=== PATIENT | male | born 1940 | race Caucasian/White ===

== ENCOUNTER 2016-11-14 17:36 | Inpatient (IN) | payer MEDICARE, BC ==
--- NOTE | 2016-11-14 18:16 | ED ---
General Adult HPI - General Chief complaint: Chest Pain Stated complaint: chest pain Time Seen by Provider: 11/14/16 17:49 Source: patient Mode of arrival: wheelchair Limitations: no limitations - History of Present Illness Initial comments: 76-year-old male presents with chest discomfort with tightness beginning during the night last night is been continuous has a lot of burping no radiation to the arm no shortness of breath no nausea. He's had a history of coronary artery disease with 2 stents in the past and underlying atrial fibrillation. He has no diabetes asthma seizures stroke. - Related Data Home Medications Medication Instructions Recorded Confirmed Lisinopril [Prinivil] 10 mg PO DAILY 07/15/14 11/14/16 Fenofibrate [Lofibra] 160 mg PO HS 03/29/15 11/14/16 Meclizine [Antivert] 25 mg PO TID PRN 03/30/15 11/14/16 Multivit-Min/FA/Lycopene/Lut 1 tab PO DAILY 12/04/15 11/14/16 [Centrum Silver Tablet] Rosuvastatin Calcium [Crestor] 20 mg PO DAILY 12/04/15 11/14/16 Previous Rx's Medication Instructions Recorded Apixaban [Eliquis] 2.5 mg PO BID #60 tab 04/02/15 Allergies Allergy/AdvReac Type Severity Reaction Status Date / Time cortisone [Cortisone] Allergy Swelling Verified 11/14/16 17:58 and itching Review of Systems ROS Statement: Those systems with pertinent positive or pertinent negative responses have been documented in the HPI. ROS Other: All systems not noted in ROS Statement are negative. Constitutional: Denies: fever Eyes: Denies: eye pain ENT: Denies: ear pain Respiratory: Denies: cough Cardiovascular: Denies: chest pain Gastrointestinal: Denies: abdominal pain, nausea, vomiting Skin: Denies: rash Neurological: Denies: headache, weakness, numbness Hematological/Lymphatic: Denies: swollen glands Past Medical History Past Medical History: Atrial Fibrillation, Coronary Artery Disease (CAD), GI Bleed, Hyperlipidemia, Hypertension, Sleep Apnea/CPAP/BIPAP Additional Past Medical History / Comment(s): Sinus Congestion; Vertigo; Uses CPAP. History of Any Multi-Drug Resistant Organisms: None Reported Past Surgical History: Heart Catheterization With Stent, Orthopedic Surgery Additional Past Surgical History / Comment(s): Exploratory Abdominal Surgery; ORIF titanium/screws in LT Ankle. REPAIR BICEP TENDON LT ARM. EXC RT CATARACT. STENTS X2. COLONOSCOPY/EGD 04/01/15. Past Anesthesia/Blood Transfusion Reactions: Previous Problems w/ Anesthesia Additional Past Anesthesia/Blood Transfusion Reaction / Comment(s): DEVELOPED AFIB AFTER CATARACT SURG 2014 EST. Date of Last Stent Placement:: 1999 Past Psychological History: No Psychological Hx Reported Smoking Status: Former smoker Past Alcohol Use History: None Reported Additional Past Alcohol Use History / Comment(s): SMOKED 15 YRS, 1 PPD, QUIT 1979 Past Drug Use History: None Reported - Past Family History Mother Family Medical History: Diabetes Mellitus, Myocardial Infarction ([place]) Father Family Medical History: Myocardial Infarction ([place]) General Exam Limitations: no limitations General appearance: alert, in no apparent distress Head exam: Present: atraumatic Eye exam: Present: PERRL, EOMI ENT exam: Present: normal exam, normal oropharynx, mucous membranes moist, TM's normal bilaterally Respiratory exam: Present: normal lung sounds bilaterally Cardiovascular Exam: Present: irregular rhythm, normal heart sounds GI/Abdominal exam: Present: soft, normal bowel sounds. Absent: tenderness, guarding, rebound Neurological exam: Present: alert, CN II-XII intact Psychiatric exam: Present: normal affect, normal mood Skin exam: Present: warm, dry Course Vital Signs 11/14/16 11/14/16 11/14/16 17:38 18:21 18:26 Temperature 99.1 F Pulse Rate 88 67 74 Respiratory 20 18 20 Rate Blood Pressure 187/80 124/58 113/57 O2 Sat by Pulse 96 97 98 Oximetry 11/14/16 18:31 Temperature Pulse Rate 76 Respiratory 20 Rate Blood Pressure 104/51 O2 Sat by Pulse 98 Oximetry Medical Decision Making - Medical Decision Making Is no acute [place] on the EKG patient did resolve except for the belching with nitro because of this will admit. Patient has had a history coronary disease we spoke with Dr. Viveros - Lab Data Result diagrams: 11/14/16 17:45 11/14/16 17:45 Lab Results 11/14/16 11/14/16 11/14/16 Range/Units 17:45 17:45 17:45 WBC 9.3 (3.8-10.6) k/uL RBC 5.16 (4.30-5.90) m/uL Hgb 15.6 (13.0-17.5) gm/dL Hct 46.5 (39.0-53.0) % MCV 90.2 (80.0-100.0) fL MCH 30.2 (25.0-35.0) pg MCHC 33.5 (31.0-37.0) g/dL RDW 15.8 H (11.5-15.5) % Plt Count 210 (150-450) k/uL Neutrophils % 84 % Lymphocytes % 6 % Monocytes % 5 % Eosinophils % 1 % Basophils % 1 % Neutrophils # 7.9 H (1.3-7.7) k/uL Lymphocytes # 0.5 L (1.0-4.8) k/uL Monocytes # 0.5 (0-1.0) k/uL Eosinophils # 0.1 (0-0.7) k/uL Basophils # 0.1 (0-0.2) k/uL Poikilocytosis Slight PT (9.0-12.0) sec INR (<1.1) APTT (22.0-30.0) sec Sodium 139 (137-145) mmol/L Potassium 4.6 (3.5-5.1) mmol/L Chloride 102 (98-107) mmol/L Carbon Dioxide 25 (22-30) mmol/L Anion Gap 12 mmol/L BUN 20 (9-20) mg/dL Creatinine 1.46 H (0.66-1.25) mg/dL Est GFR (MDRD) Af Amer 57 (>60 ml/min/1.73 sqM) Est GFR (MDRD) Non-Af 47 (>60 ml/min/1.73 sqM) Glucose 145 H (74-99) mg/dL Calcium 9.7 (8.4-10.2) mg/dL Magnesium 1.8 (1.6-2.3) mg/dL Total Bilirubin 0.9 (0.2-1.3) mg/dL AST 26 (17-59) U/L ALT 20 L (21-72) U/L Alkaline Phosphatase 40 (38-126) U/L Total Creatine Kinase 70 (55-170) U/L CK-MB (CK-2) 1.7 (0.0-2.4) ng/mL CK-MB (CK-2) Rel Index 2.4 Troponin I <0.012 (0.000-0.034) ng/mL Total Protein 7.3 (6.3-8.2) g/dL Albumin 4.4 (3.5-5.0) g/dL 11/14/16 Range/Units 17:45 WBC (3.8-10.6) k/uL RBC (4.30-5.90) m/uL Hgb (13.0-17.5) gm/dL Hct (39.0-53.0) % MCV (80.0-100.0) fL MCH (25.0-35.0) pg MCHC (31.0-37.0) g/dL RDW (11.5-15.5) % Plt Count (150-450) k/uL Neutrophils % % Lymphocytes % % Monocytes % % Eosinophils % % Basophils % % Neutrophils # (1.3-7.7) k/uL Lymphocytes # (1.0-4.8) k/uL Monocytes # (0-1.0) k/uL Eosinophils # (0-0.7) k/uL Basophils # (0-0.2) k/uL Poikilocytosis PT 11.7 (9.0-12.0) sec INR 1.2 (<1.1) APTT 26.9 (22.0-30.0) sec Sodium (137-145) mmol/L Potassium (3.5-5.1) mmol/L Chloride (98-107) mmol/L Carbon Dioxide (22-30) mmol/L Anion Gap mmol/L BUN (9-20) mg/dL Creatinine (0.66-1.25) mg/dL Est GFR (MDRD) Af Amer (>60 ml/min/1.73 sqM) Est GFR (MDRD) Non-Af (>60 ml/min/1.73 sqM) Glucose (74-99) mg/dL Calcium (8.4-10.2) mg/dL Magnesium (1.6-2.3) mg/dL Total Bilirubin (0.2-1.3) mg/dL AST (17-59) U/L ALT (21-72) U/L Alkaline Phosphatase (38-126) U/L Total Creatine Kinase (55-170) U/L CK-MB (CK-2) (0.0-2.4) ng/mL CK-MB (CK-2) Rel Index Troponin I (0.000-0.034) ng/mL Total Protein (6.3-8.2) g/dL Albumin (3.5-5.0) g/dL - EKG Data -: EKG Interpreted by Me 11/14/16 18:13 ECG 11/14/2016 1744 ventricular rate 77 bpm, WI interval not present, QRS duration 88 ms, QT interval 388 ms atrial fibrillation left axis deviation T- wave abnormality consider him lateral ischemia Disposition Clinical Impression: Chest pain Disposition: ADMITTED IP TO THIS HOSP Condition: Good Time of Disposition: 19:58
[2016-11-14] MEDS: NITROGLYCERIN SL TABS 0.4 MG TAB SUBLINGUAL STA ×2 (18:22→18:27)
[2016-11-14 18:25] LABS: Basophils # (A) 0.1 k/uL (0-0.2); Basophils % (A) 1 %; CH 31.3; CHCM 34.9; Eosinophils # (A) 0.1 k/uL (0-0.7); Eosinophils % (A) 1 %; HCT 46.5 % (39.0-53.0); HDW 3.47; HGB 15.6 gm/dL (13.0-17.5); Luc # (Auto) 0.26; Luc % (Auto) 3; Lymphocytes # (A) 0.5 k/uL (1.0-4.8); Lymphocytes % (A) 6 %; MCH 30.2 pg (25.0-35.0); MCHC 33.5 g/dL (31.0-37.0); MCV 90.2 fL (80.0-100.0); Mean Platelet Volume 8.4; Monocytes # (A) 0.5 k/uL (0-1.0); Monocytes % (A) 5 %; Neutrophils # (A) 7.9 k/uL (1.3-7.7); Neutrophils % (A) 84 %; Poikilocytosis Slight; RBC 5.16 m/uL (4.30-5.90); RDW 15.8 % (11.5-15.5); WBC 9.3 k/uL (3.8-10.6); WBC (Perox) 9.37
[2016-11-14 18:33] LABS: INR 1.2 (<1.1); Partial Thromboplastin Time 26.9 sec (22.0-30.0); Prothrombin Time 11.7 sec (9.0-12.0)
[2016-11-14] MEDS ORDERED: MAG HYDROX/AL HYDROX/SIMETH 30 ML, HYOSCYAMINE ELIXIR 10 ML, CIMETIDINE HCL 300 MG PO STA ×3 (18:33)
[2016-11-14 18:38] LABS: Calcium 9.7 mg/dL (8.4-10.2); Magnesium 1.8 mg/dL (1.6-2.3); Potassium 4.6 mmol/L (3.5-5.1); Total Bilirubin 0.9 mg/dL (0.2-1.3); Total Protein 7.3 g/dL (6.3-8.2)
--- NOTE | 2016-11-14 18:50 | XR ---
EXAMINATION TYPE: XR chest 1V portable DATE OF EXAM: 11/14/2016 6:45 PM COMPARISON: Prior chest x-ray March 05, 2016 HISTORY: Chest pain. TECHNIQUE: Single AP portable frontal upright view of the chest is obtained. FINDINGS: There is no focal air space opacity, pleural effusion, or pneumothorax seen. The cardiac silhouette size remains enlarged. The osseous structures are intact. IMPRESSION: Cardiomegaly without acute pulmonary process.
[2016-11-14 19:01] LABS: Creatine Kinase 70 U/L (55-170)
[2016-11-14 19:13] LABS: Creatine Kinase MB 1.7 ng/mL (0.0-2.4); Troponin I <0.012 ng/mL (0.000-0.034)
[2016-11-14] MEDS ORDERED: NALOXONE 0.4 MG/ML 1 ML VIAL IV PRN (19:59)
[2016-11-14] MEDS ORDERED: MECLIZINE 25 MG TAB PO PRN (20:00)
[2016-11-14] MEDS ORDERED: SODIUM CHLORIDE 0.9% 1,000 ML IV SCH (20:00)
[2016-11-14] MEDS ORDERED: ACETAMINOPHEN TAB 325 MG TAB PO PRN (20:01)
[2016-11-14] MEDS ORDERED: FAMOTIDINE 20 MG TAB PO STA (20:03)
[2016-11-14] MEDS ORDERED: FENOFIBRATE 160 MG TAB PO SCH (21:00)
[2016-11-14] MEDS: APIXABAN 2.5 MG TABLET PO SCH (22:04)
[2016-11-15 00:45] LABS: Creatine Kinase 70 U/L (55-170)
[2016-11-15 00:59] LABS: Creatine Kinase MB 1.2 ng/mL (0.0-2.4); Troponin I <0.012 ng/mL (0.000-0.034)
[2016-11-15 07:11] LABS: Basophils % (A) 0 %; CH 30.8; CHCM 34.2; Eosinophils # (A) 0.1 k/uL (0-0.7); Eosinophils % (A) 2 %; HCT 43.8 % (39.0-53.0); HDW 3.51; HGB 14.3 gm/dL (13.0-17.5); Luc % (Auto) 4; Lymphocytes # (A) 0.9 k/uL (1.0-4.8); Lymphocytes % (A) 15 %; MCH 29.5 pg (25.0-35.0); MCHC 32.6 g/dL (31.0-37.0); MCV 90.4 fL (80.0-100.0); Mean Platelet Volume 7.7; Monocytes # (A) 0.3 k/uL (0-1.0); Monocytes % (A) 6 %; Neutrophils # (A) 4.2 k/uL (1.3-7.7); Neutrophils % (A) 73 %; Poikilocytosis Slight; RBC 4.84 m/uL (4.30-5.90); RDW 15.7 % (11.5-15.5); WBC 5.7 k/uL (3.8-10.6); WBC (Perox) 5.97
[2016-11-15 07:23] LABS: Calcium 9.5 mg/dL (8.4-10.2); Potassium 4.7 mmol/L (3.5-5.1)
[2016-11-15 07:33] LABS: Creatine Kinase 52 U/L (55-170)
[2016-11-15 07:46] LABS: Creatine Kinase MB 1.2 ng/mL (0.0-2.4); Troponin I <0.012 ng/mL (0.000-0.034)
[2016-11-15 08:31] VITALS: TEMP 97.7
[2016-11-15] MEDS ORDERED: LISINOPRIL 10 MG TAB PO SCH (09:00)
[2016-11-15] MEDS ORDERED: ATORVASTATIN 40 MG TAB PO SCH (09:00)
--- NOTE | 2016-11-15 09:58 | P.CRDCN ---
History of Present Illness Consult date: 11/15/16 Requesting physician: Kojo Viveros Consult reason: chest pain Chief complaint: Chest pain History of present illness: This is a pleasant 79-year-old gentleman with history of hypertension , hyperlipidemia, coronary artery disease with prior stent placement 2 several years ago, patient also has history of prior GI bleeding on xarelto, history of chronic persistent atrial fibrillation. Patient follows with Dr. Kuhn for his cardiac needs. He presents to the hospital with symptoms of midsternal chest pressure and heaviness with associated shortness of breath. According to the patient, he has been having episodes of frequent belching which he's been dealing with for approximately one year. He states that last evening he had several episodes of belching, and following that patient states that he developed a heaviness in the chest and became mildly short of breath. Because of his history of coronary artery disease he came to the hospital for further evaluation. Over the past one to 2 weeks patient has been dealing with a bronchitis and upper respiratory infection for which she was started on antibiotics. Continues to have nonproductive cough. EKG on arrival shows atrial fibrillation with anterior lateral ST-T wave changes, more pronounced on the morning EKG. Biphasic T-wave changes in V3. CBC normal, potassium 4.7, BUN 19, creatinine 1.4. Troponins have been negative 3. Magnesium level I.8. Blood pressure 130/70 with a heart rate in the 70s. At the time of my examination this morning, patient no longer has any chest pressure or heaviness , continues to have intermittent cough with deep breathing. Past Medical History Past Medical History: Atrial Fibrillation, Coronary Artery Disease (CAD), GI Bleed, Hyperlipidemia, Hypertension, Sleep Apnea/CPAP/BIPAP Additional Past Medical History / Comment(s): Sinus Congestion; Vertigo; Uses CPAP. History of Any Multi-Drug Resistant Organisms: None Reported Past Surgical History: Heart Catheterization With Stent, Orthopedic Surgery Additional Past Surgical History / Comment(s): Exploratory Abdominal Surgery; ORIF titanium/screws in LT Ankle. REPAIR BICEP TENDON LT ARM. EXC RT CATARACT. STENTS X2. COLONOSCOPY/EGD 04/01/15. Past Anesthesia/Blood Transfusion Reactions: Previous Problems w/ Anesthesia Additional Past Anesthesia/Blood Transfusion Reaction / Comment(s): DEVELOPED AFIB AFTER CATARACT SURG 2013 Date of Last Stent Placement:: 1999 Past Psychological History: No Psychological Hx Reported Smoking Status: Former smoker Past Alcohol Use History: None Reported Additional Past Alcohol Use History / Comment(s): SMOKED 15 YRS, 1 PPD, QUIT 1979 Past Drug Use History: None Reported - Past Family History Mother Family Medical History: Diabetes Mellitus, Myocardial Infarction ([place]) Father Family Medical History: Myocardial Infarction ([place]) Medications and Allergies Home Medications Medication Instructions Recorded Confirmed Type Lisinopril [Prinivil] 10 mg PO DAILY 07/15/14 11/14/16 History Fenofibrate [Lofibra] 160 mg PO HS 03/29/15 11/14/16 History Meclizine [Antivert] 25 mg PO TID PRN 03/30/15 11/14/16 History Multivit-Min/FA/Lycopene/Lut 1 tab PO DAILY 12/04/15 11/14/16 History [Centrum Silver Tablet] Rosuvastatin Calcium [Crestor] 20 mg PO DAILY 12/04/15 11/14/16 History Allergies Allergy/AdvReac Type Severity Reaction Status Date / Time cortisone [Cortisone] Allergy Swelling Verified 11/14/16 17:58 and itching Physical Exam Vitals: Vital Signs Temp Pulse Pulse Pulse Resp BP BP 11/15/16 08:00 97.7 F 74 55 L 18 131/79 11/15/16 04:00 98.2 F 74 16 119/72 11/15/16 03:28 16 11/15/16 00:00 16 11/14/16 21:50 166/79 11/14/16 21:29 16 11/14/16 20:50 98.7 F 78 16 188/134 11/14/16 20:38 70 18 144/77 Pulse Ox 11/15/16 08:00 98 11/15/16 04:00 98 11/15/16 03:28 11/15/16 00:00 11/14/16 21:50 11/14/16 21:29 11/14/16 20:50 98 11/14/16 20:38 97 Intake and Output 11/14/16 11/15/16 11/15/16 22:59 06:59 14:59 Intake Total 200 Balance 200 Intake: Oral 200 Other: Voiding Method Toilet Toilet Toilet # Voids 1 2 PHYSICAL EXAMINATION: HEENT: Head is atraumatic, normocephalic. Pupils equal, round. Neck is supple. There is no elevated jugular venous pressure. HEART EXAMINATION: Heart S1 and S2 irregularly irregular CHEST EXAMINATION: Lungs reveal coarse rhonchi that clear with cough. ABDOMEN: Soft, obese, nontender. Bowel sounds are heard. No organomegaly noted. EXTREMITIES: 2+ peripheral pulses with no evidence of peripheral edema and no calf tenderness noted. NEUROLOGIC patient is awake, alert and oriented -3. . Results 11/15/16 06:36 11/15/16 06:36 Cardiac Enzymes 11/14/16 11/15/16 Range/Units 23:55 06:36 CK-MB (CK-2) 1.2 1.2 (0.0-2.4) ng/mL Troponin I <0.012 <0.012 (0.000-0.034) ng/mL CBC 11/15/16 Range/Units 06:36 WBC 5.7 (3.8-10.6) k/uL RBC 4.84 (4.30-5.90) m/uL Hgb 14.3 (13.0-17.5) gm/dL Hct 43.8 (39.0-53.0) % Plt Count 187 (150-450) k/uL Comprehensive Metabolic Panel 11/15/16 Range/Units 06:36 Sodium 140 (137-145) mmol/L Potassium 4.7 (3.5-5.1) mmol/L Chloride 104 (98-107) mmol/L Carbon Dioxide 26 (22-30) mmol/L BUN 19 (9-20) mg/dL Creatinine 1.45 H (0.66-1.25) mg/dL Glucose 105 H (74-99) mg/dL Calcium 9.5 (8.4-10.2) mg/dL Current Medications Generic Name Dose Route Start Last Admin Trade Name Freq PRN Reason Stop Dose Admin Acetaminophen 650 mg 11/14/16 20:01 11/14/16 20:36 Tylenol Tab PO 650 mg Q6HR PRN Administration Fever and/ or Pain Apixaban 2.5 mg 11/14/16 21:00 11/14/16 22:04 Eliquis PO 2.5 mg BID XIMENA Administration Atorvastatin Calcium 40 mg 11/15/16 09:00 Lipitor PO DAILY XIMENA Fenofibrate 160 mg 11/14/16 21:00 11/14/16 22:04 Lofibra PO 160 mg HS XIMENA Administration Sodium Chloride 1,000 mls @ 20 mls/hr 11/14/16 20:00 11/14/16 22:05 Saline 0.9% IV Not Given .Q24H XIMENA Lisinopril 10 mg 11/15/16 09:00 Zestril PO DAILY XIMENA Meclizine HCl 25 mg 11/14/16 20:00 Antivert PO TID PRN dizziness Multivitamins 1 each 11/15/16 12:00 Theragran PO DAILY@1200 XIMENA Naloxone HCl 0.2 mg 11/14/16 19:59 Narcan IV Q2M PRN Opioid Reversal Intake and Output 11/14/16 11/15/16 11/15/16 22:59 06:59 14:59 Intake Total 200 Balance 200 Intake: Oral 200 Other: Voiding Method Toilet Toilet Toilet # Voids 1 2 11/15/16 06:36 11/15/16 06:36 EKG Interpretations (text) EKG shows atrial fibrillation with anterior lateral ST-T wave changes Assessment and Plan Plan: Assessment and plan #1 symptoms of midsternal chest pressure and heaviness with associated shortness of breath. EKG shows atrial fibrillation with anterior lateral ST-T wave changes, troponin negative 3. Suggestive of possible unstable angina. #2 known history of coronary artery disease with prior stent placement 2 several years ago in [place]. #3 hypertension #4 hyperlipidemia #5 chronic persistent atrial fibrillation on Eliquis at home for anticoagulation. #6 history of prior GI bleeding on xarelto #7 recent upper respiratory infection #8 persistent belching, barium swallow performed one year ago negative. Upper endoscopy performed 2014, normal. #9 acute on chronic renal insufficiency, creatinine 1.4 Plan We will obtain an echocardiogram with Doppler study. In view of the patient's symptoms along with EKG changes, he has been advised to undergo cardiac catheterization. 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 The patient is currently on Eliquis for anticoagulation. Further recommendations to follow. DNP note has been reviewed, I agree with a documented findings and plan of care. Patient was seen and examined.
[2016-11-15] MEDS: APIXABAN 2.5 MG TABLET PO SCH (10:14)
[2016-11-15] MEDS ORDERED: SODIUM CHLORIDE 0.9% 1,000 ML IV SCH (10:15)
[2016-11-15 11:23] VITALS: BP 168/88; PULSE 68; RESP 16
[2016-11-15] MEDS ORDERED: MULTIVITAMINS, THERA 1 EACH TAB PO SCH (12:00)
--- NOTE | 2016-11-15 12:38 | P.HPIM ---
History of Present Illness H&P Date: 11/15/16 Chief Complaint: Chest pain This is a pleasant 79-year-old gentleman with history of hypertension , hyperlipidemia, coronary artery disease with prior stent placement 2 several years ago, patient also has history of prior GI bleeding on xarelto, history of chronic persistent atrial fibrillation. Patient follows with Dr. Kuhn for his cardiac needs. He presents to the hospital with symptoms of midsternal chest pressure and heaviness with associated shortness of breath. According to the patient, he has been having episodes of frequent belching which he's been dealing with for approximately one year. He states that last evening he had several episodes of belching, and following that patient states that he developed a heaviness in the chest and became mildly short of breath. Because of his history of coronary artery disease he came to the hospital for further evaluation. Over the past one to 2 weeks patient has been dealing with a bronchitis and upper respiratory infection for which she was started on antibiotics. Continues to have nonproductive cough. EKG on arrival shows atrial fibrillation with anterior lateral ST-T wave changes, more pronounced on the morning EKG. Biphasic T-wave changes in V3. CBC normal, potassium 4.7, BUN 19, creatinine 1.4. Troponins have been negative 3. Magnesium level I.8. Blood pressure 130/70 with a heart rate in the 70s. Patient states he has a known history of coronary artery disease and has his own primary multifocal button inspector Dr. Kuhn other [facility] in which the patient is stating he would like to be transferred to [facility] the cardiology Associates Dr. WAN Castro did see patient did advise the patient undergo heart catheterization given patient's EKG changes. Patient stated that he wishes to have this procedure performed by his own multifocal button inspector Dr. Kuhn in [place] Review of Systems Essentially unremarkable except as mentioned in the present illness Past Medical History Past Medical History: Atrial Fibrillation, Coronary Artery Disease (CAD), GI Bleed, Hyperlipidemia, Hypertension, Sleep Apnea/CPAP/BIPAP Additional Past Medical History / Comment(s): Sinus Congestion; Vertigo; Uses CPAP. History of Any Multi-Drug Resistant Organisms: None Reported Past Surgical History: Heart Catheterization With Stent, Orthopedic Surgery Additional Past Surgical History / Comment(s): Exploratory Abdominal Surgery; ORIF titanium/screws in LT Ankle. REPAIR BICEP TENDON LT ARM. EXC RT CATARACT. STENTS X2. COLONOSCOPY/EGD 04/01/15. Past Anesthesia/Blood Transfusion Reactions: Previous Problems w/ Anesthesia Additional Past Anesthesia/Blood Transfusion Reaction / Comment(s): DEVELOPED AFIB AFTER CATARACT SURG 2013 Date of Last Stent Placement:: 1999 Past Psychological History: No Psychological Hx Reported Smoking Status: Former smoker Past Alcohol Use History: None Reported Additional Past Alcohol Use History / Comment(s): SMOKED 15 YRS, 1 PPD, QUIT 1979 Past Drug Use History: None Reported - Past Family History Mother Family Medical History: Diabetes Mellitus, Myocardial Infarction ([place]) Father Family Medical History: Myocardial Infarction ([place]) Medications and Allergies Home Medications Medication Instructions Recorded Confirmed Type Lisinopril [Prinivil] 10 mg PO DAILY 07/15/14 11/14/16 History Fenofibrate [Lofibra] 160 mg PO HS 03/29/15 11/14/16 History Meclizine [Antivert] 25 mg PO TID PRN 03/30/15 11/14/16 History Multivit-Min/FA/Lycopene/Lut 1 tab PO DAILY 12/04/15 11/14/16 History [Centrum Silver Tablet] Rosuvastatin Calcium [Crestor] 20 mg PO DAILY 12/04/15 11/14/16 History Allergies Allergy/AdvReac Type Severity Reaction Status Date / Time cortisone [Cortisone] Allergy Swelling Verified 11/14/16 17:58 and itching Physical Exam Vitals: Vital Signs Pulse Pulse Resp BP Pulse Ox 11/15/16 12:00 74 68 16 11/15/16 11:22 68 16 168/88 96 Intake and Output 11/14/16 11/15/16 11/15/16 22:59 06:59 14:59 Other: Voiding Method Toilet # Voids 2 GENERAL APPEARANCE: 76 patient is alert, oriented, in no acute distress. VITAL SIGNS: Reviewed HEENT: Head is normocephalic and atraumatic. Pupils are equal and reactive. The nares are patent. Oropharynx is clear without lesions. NECK: Supple without lymphadenopathy. Traches midline. HEART: S1, S2. Regular rate and rhythm. No murmur noted LUNGS: No crackles or wheezes are heard. Adequate air movement ABDOMEN: Soft, nontender, nondistended with good bowel sounds. No peritoneal signs. No palpable organomegaly or masses. EXTREMITIES: Normal skin color and turgor. No cyanosis, rash, ulceration, clubbing or edema. Radial pedal pulses are 2/4 bilaterally. NEUROLOGICAL: No focal deficits. Strength and sensation are grossly intact. Results CBC & Chem 7: 11/15/16 06:36 11/15/16 06:36 Thrombosis Risk Factor Assmnt - Choose All That Apply Any of the Below Risk Factors Present?: Yes Each Factor Represents 1 point: Obesity (BMI >25) Other Risk Factors: No Other congenital or acquired thrombophilia - If yes, enter type in comment: No Thrombosis Risk Factor Assessment Total Risk Factor Score: 1 Thrombosis Risk Factor Assessment Level: Low Risk Assessment and Plan Plan: Impression Present on admission chest pain midsternal heaviness with shortness of breath suggested possible unstable angina Twelve-lead EKG changes noted anterior lateral with underlying atrial fibrillation Known coronary artery disease History of coronary artery disease prior coronary stenting several years ago by Dr. Kuhn in [place] History of a prior GI bleed Chronic Permanent atrial fibrillation rate controlled on Xarelto Persistent belching barium swallow one year prior Acute on chronic renal failure A recent upper respiratory infection Plan Patient is requesting to be transferred to [facility] Dr. Kuhn service cardiology applications project manager to pursue the discharge transfer Continue patient's home meds as ordered Further recommendations pending transfer being set up to [facility] The above dictated assessment and findings were discussed with dr brennan Sunshine and the plan of care have been dictated as directed. Nola Banks nurse practitioner acting as a scribe for dr amin
--- NOTE | 2016-11-15 12:42 | P.DS ---
Providers Date of admission: 11/15/16 11:11 Expected date of discharge: 11/15/16 Attending physician: Kojo Amin [facility] Course: This is a pleasant 79-year-old gentleman with history of hypertension , hyperlipidemia, coronary artery disease with prior stent placement 2 several years ago, patient also has history of prior GI bleeding on xarelto, history of chronic persistent atrial fibrillation. Patient follows with Dr. Kuhn for his cardiac needs. He presents to the hospital with symptoms of midsternal chest pressure and heaviness with associated shortness of breath. According to the patient, he has been having episodes of frequent belching which he's been dealing with for approximately one year. He states that last evening he had several episodes of belching, and following that patient states that he developed a heaviness in the chest and became mildly short of breath. Because of his history of coronary artery disease he came to the hospital for further evaluation. Over the past one to 2 weeks patient has been dealing with a bronchitis and upper respiratory infection for which she was started on antibiotics. Continues to have nonproductive cough. EKG on arrival shows atrial fibrillation with anterior lateral ST-T wave changes, more pronounced on the morning EKG. Biphasic T-wave changes in V3. CBC normal, potassium 4.7, BUN 19, creatinine 1.4. Troponins have been negative 3. Magnesium level I.8. Blood pressure 130/70 with a heart rate in the 70s. Patient states he has a known history of coronary artery disease and has his own primary ion exchange operator Dr. Kuhn other [facility] in which the patient is stating he would like to be transferred to [facility] the cardiology Associates Dr. WAN Castro did see patient did advise the patient undergo heart catheterization given patient's EKG changes. Patient stated that he wishes to have this procedure performed by his own ion exchange operator Dr. Kuhn in [place] Impression Present on admission chest pain midsternal heaviness with shortness of breath suggested possible unstable angina. Enzymes 3 sets negative Twelve-lead EKG changes noted anterior lateral with underlying atrial fibrillation Known coronary artery disease History of coronary artery disease prior coronary stenting several years ago by Dr. Kuhn in [place] History of a prior GI bleed Chronic Permanent atrial fibrillation rate controlled on Xarelto Persistent belching barium swallow one year prior Acute on chronic renal failure A recent upper respiratory infection The above dictated assessment and findings were discussed with dr amin Impression and the plan of care have been dictated as directed. Nola Banks nurse practitioner acting as a scribe for dr amin Patient Condition at Discharge: Good Plan - Discharge Summary Discharge Medication List Lisinopril [Prinivil] 10 mg PO DAILY 07/15/14 [History] Fenofibrate [Lofibra] 160 mg PO HS 03/29/15 [History] Meclizine [Antivert] 25 mg PO TID PRN 03/30/15 [History] Apixaban [Eliquis] 2.5 mg PO BID #60 tab 04/02/15 [Rx] Multivit-Min/FA/Lycopene/Lut [Centrum Silver Tablet] 1 tab PO DAILY 12/04/15 [ History] Rosuvastatin Calcium [Crestor] 20 mg PO DAILY 12/04/15 [History] Follow up Appointment(s)/Referral(s): Kojo Amin MD [Primary Care Provider] - 1-2 days Discharge Disposition: DC/[facility]NS INTERMEDIATE CARE FAC
== END 2016-11-15 13:18 | disposition short-term general hospital (02) | DRG 303 ==
LOC: EC 17:36 → 3OBS 19:59 → OBSVTOIN 11-15 11:11
PROVIDERS: ADMIT Family Medicine; ATTEND Family Medicine
DX: I25.118 Atherosclerotic heart disease of native coronary artery with other forms of angina pectoris (principal); N17.9 Acute kidney failure, unspecified; I48.1 Persistent atrial fibrillation; I12.9 Hypertensive chronic kidney disease with stage 1 through stage 4 chronic kidney disease, or unspecified chronic kidney disease; E78.5 Hyperlipidemia, unspecified; G47.30 Sleep apnea, unspecified; I48.2 Chronic atrial fibrillation; N18.9 Chronic kidney disease, unspecified; Z95.5 Presence of coronary angioplasty implant and graft; Z87.891 Personal history of nicotine dependence; Z83.3 Family history of diabetes mellitus; Z82.49 Family history of ischemic heart disease and other diseases of the circulatory system; Z79.899 Other long term (current) drug therapy; Z79.01 Long term (current) use of anticoagulants
CPT/HCPCS: 36415; 71010; 80048; 80053; 82550; 82553; 83735; 84484; 85025; 85610; 85730; 93005; 99285

== ENCOUNTER 2017-09-22 08:40 | Day surgery (SDC) | payer BC, MEDICARE ==
[2017-09-20 09:15] VITALS: BMI 34.4
[~2017-09-22 08:40] MED LIST: LACTATED RINGERS 1,000 ML IV SCH; LIDOCAINE 1% 20 ML VIAL (10MG/ML) FOR IV START INTRADERMA PRN
[2017-09-22 10:02] VITALS: TEMP 98
[2017-09-22] MEDS ORDERED: PROPOFOL 10 MG/ML 20 ML VIAL IV ONE (10:32)
[2017-09-22] MEDS ORDERED: LIDOCAINE 1% INJ 10MG/ML (20 ML MDV) ONE (10:32)
[2017-09-22 11:01] VITALS: RESP 18
--- NOTE | 2017-09-22 11:07 | P.PCN ---
Date of Procedure: 09/22/17 Procedure(s) Performed: Procedure: Esophagogastroduodenoscopy and biopsy. Preoperative diagnosis: History of reflux and recent issues with continuous burping. Postoperative diagnosis: 1. Very small sliding hiatal hernia with no obvious esophagitis or complicated reflux disease. 2. Mild gastritis. 3. Multiple biopsies obtained from the duodenum, antrum and esophagus. Preparation and sedation: Was provided by anesthesia. Brief clinical history: The patient is a 77-year-old male who is scheduled for this evaluation for the above reasons. He had a normal upper endoscopy in March 2015 as part of the workup of rectal bleeding. At that time he had a colonoscopy and polypectomy as well. At this time, he has no other abdominal complaints, bleeding or anemia. Procedure: With the patient on his left lateral decubitus position and after informed consent and adequate sedation, I passed the Olympus-GIF 160 video upper endoscope through the cricopharyngeus down the esophagus. GE junction was around 42-43 cm from the incisors and there was a very small less than 1 cm sliding hiatal hernia with no evidence of esophagitis or complicated reflux disease. The endoscope was then passed into the stomach which was insufflated with air and inspected in detail including the retroflex view in the cardia. There was some mottling and erythema in the antrum but no ulcers or erosions. Pyloric channel, duodenal bulb, post bulbar area and descending duodenum appeared within normal limits obtained biopsies from the duodenum, antrum and esophagus then the endoscope was withdrawn. The patient tolerated the procedure well. Plan: The patient was reassured. Will await pathology results. Further plans can be made based on his course and biopsy results. He will follow up with you as planned and I will be happy to see in the office of his symptoms persist.
[2017-09-22 11:11] VITALS: BP 124/72; PULSE 79
== END 2017-09-22 11:46 | disposition home or self-care (01) ==
LOC: ORWHC2ENDO 08:40
DX: K21.0 Gastro-esophageal reflux disease with esophagitis (principal); K29.50 Unspecified chronic gastritis without bleeding; K44.9 Diaphragmatic hernia without obstruction or gangrene; I48.91 Unspecified atrial fibrillation; I25.10 Atherosclerotic heart disease of native coronary artery without angina pectoris; I10 Essential (primary) hypertension; E78.5 Hyperlipidemia, unspecified; Z95.5 Presence of coronary angioplasty implant and graft; G47.33 Obstructive sleep apnea (adult) (pediatric); Z99.89 Dependence on other enabling machines and devices; Z79.01 Long term (current) use of anticoagulants; Z79.02 Long term (current) use of antithrombotics/antiplatelets; Z79.899 Other long term (current) drug therapy; Z88.8 Allergy status to other drugs, medicaments and biological substances
CPT/HCPCS: 88305; 88342; 43239; J2001; J2704

== ENCOUNTER → 2018-03-09 | Outpatient (CLI) | payer MEDICARE ==
--- NOTE | 2018-03-09 15:22 | CT ---
EXAMINATION TYPE: CT abdomen wo con DATE OF EXAM: 03/09/2018 COMPARISON: 09/03/2017 HISTORY: Gastric reflux. Abdominal pain. CT DLP: 749 mGycm Automated exposure control for dose reduction was used. TECHNIQUE: Helical acquisition of images was performed from the lung bases through the top of iliac crest to include entire abdomen. CONTRAST: Performed without Oral Contrast and without IV contrast. FINDINGS: Lack of intravenous and oral contrast limit evaluation of the hollow and solid viscera. LUNG BASES: 6.8 cm right lower lung bulla is partially visualized. Minimal bibasilar subsegmental ate lectasis is seen. LIVER/GB: Solitary 7 mm hypoattenuated hepatic lesion that is too small to accurately characterize is seen at the hepatic dome on series 3 image 14, stable from the prior of 09/03/2017. Otherwise the un enhanced liver is grossly unremarkable. PANCREAS: No significant abnormality is seen. No ductal dilatation. SPLEEN: No significant abnormality is seen. No splenomegaly. ADRENALS: No thickening or nodularity. KIDNEYS: No hydronephrosis or nephrolithiasis. BOWEL: No dilated large or small bowel is seen. Stomach is decompressed. LYMPH NODES: No greater than 1 cm short axis lymph node is seen within the abdomen. OSSEOUS STRUCTURES: Multilevel moderate degenerative changes of the spine are noted. FREE AIR: No free air is visualized. OTHER: Extensive calcific atheromatous changes are seen of the abdominal aorta and its branches. Surg ical clips are noted of the ventral abdomen, likely from prior hernia repair. IMPRESSION: 1. No hiatal hernia is seen given this patient's symptoms of gastroesophageal reflux. Stomach is deco mpressed. No dilated large or small bowel. No evidence of cholelithiasis. 2. Bullous emphysematous changes of the right lower lobe.
== END | disposition home or self-care (01) ==
LOC: RADCTMAIN 14:57
PROVIDERS: ATTEND Family Medicine
DX: K21.9 Gastro-esophageal reflux disease without esophagitis (principal)
CPT/HCPCS: 74150

== ENCOUNTER → 2018-04-19 | Outpatient (CLI) | payer MEDICARE ==
--- NOTE | 2018-04-19 12:00 | CT ---
EXAMINATION TYPE: CT chest wo con DATE OF EXAM: 04/19/2018 COMPARISON: 06/22/2013 HISTORY: COPD, unspecified CT DLP: 755 mGycm, Automated exposure control for dose reduction was used. CONTRAST: Performed injected with 0 mL of Isovue 300. TECHNIQUE: Axial images were obtained at 5 mm thick sections. Reconstructed images are reviewed on [employer] computer in the coronal plane. FINDINGS: Portion of the thyroid visualized is normal. Pneumatocele is in the posterior lateral right. This was present previously and is enlarged. There is a focal area of increased 0.6 x 1.3 cm series 4 image 35. This was present previously No enlarged mediastinal or hilar adenopathy is evident. The ascending aorta diameter at the level o f the main pulmonary artery is 4.2 cm. The main pulmonary artery diameter at the bifurcation is 3.6 cm. Coronary calcification. Limited CT sections are obtained through the upper abdomen. Small cyst may be in the superior right l obe liver. IMPRESSIONS: 1. No suspicious acute changes. 2. No significant change from 06/22/2013.
== END | disposition home or self-care (01) ==
LOC: RADCTMAIN 08:49
PROVIDERS: ATTEND Family Medicine
DX: J44.9 Chronic obstructive pulmonary disease, unspecified (principal)
CPT/HCPCS: 71250

== ENCOUNTER → 2018-06-01 | Outpatient (CLI) | payer MEDICARE ==
--- NOTE | 2018-06-02 08:40 | US ---
EXAMINATION TYPE: US prostate transrectal DATE OF EXAM: 06/01/2018 COMPARISON: 02/10/2016 CLINICAL HISTORY: R97.20 elevated PSA. This examination was performed using the transrectal probe. EXAM MEASUREMENTS: Gland Size: 4.8 x 4.1 x 4.9cm Volume: 50.9 Predicted PSA: 6.1 Actual PSA (if available):6.1 Heterogeneous gland. Central glandular hypertrophy and cyst. There is decreased echogenicity within t he left peripheral zone. Consider tissue diagnosis. IMPRESSION: 1.There is decreased echogenicity within the left peripheral zone. Consider tissue diagnosis. 2. Prostatic glandular enlargement. Predicted PSA = volume x 0.12 ng/ml Calculated Volume = 0.5236 x L x W x H
== END ==
LOC: RADUSMAIN 08:05
PROVIDERS: ATTEND Family Medicine
DX: N40.0 Benign prostatic hyperplasia without lower urinary tract symptoms (principal)
CPT/HCPCS: 76872

== ENCOUNTER → 2018-08-04 | Outpatient (CLI) | payer MEDICARE ==
--- NOTE | 2018-08-04 14:16 | CT ---
EXAMINATION TYPE: CT chest wo con DATE OF EXAM: 08/04/2018 COMPARISON: Chest CT dated April 19, 2018 HISTORY: COPD per order CT DLP: 660.5 mGycm. Automated Exposure Control for Dose Reduction was Utilized. TECHNIQUE: CT scan of the thorax is performed without IV contrast. FINDINGS: LUNGS: Peripheral bulla in the right lower lobe measuring 6.4 x 3.8 cm on axial image 39 is stable. No new suspicious focal consolidation groundglass opacity is seen. No new concerning nodule or mass i s noted. There is no pleural effusion or pneumothorax seen bilaterally. The tracheobronchial tree is patent. MEDIASTINUM: Lack of IV contrast is noted to limit evaluation for mediastinal and especially hilar ad enopathy. There are no definitive greater than 1 cm hilar or mediastinal lymph nodes. No significan t pericardial effusion is seen. Cardiomegaly is redemonstrated. There is severe three-vessel coronary artery calcification redemonstrated. Moderate calcified plaque of the aorta extends into branch vess els. Main pulmonary artery measures up to 3.0 cm diameter axial image 27. Underlying pulmonary artery hypertension is not excluded. Adjacent ascending aorta measures 3.9 cm in diameter. OTHER: Subcentimeter low dense lesion left hepatic lobe axial image 49 is too small to further charac terize but stable and presumed benign. There is moderate to severe multilevel spurring in the thoraci c spine IMPRESSION: Stable peripheral bulla right lower lobe. No suspicious acute pulmonary process. No signi ficant change from prior.
--- NOTE | 2018-08-04 14:22 | CT ---
EXAMINATION TYPE: CT lumbar spine wo con DATE OF EXAM: 08/04/2018 1:50 PM COMPARISON: CT lumbar spine February 11, 2016 HISTORY: Low back pain after lifting injury. CT DLP: 2820.16 mGycm Automated exposure control for dose reduction was used. Unenhanced CT of the lumbar spine was performed. Bone and soft tissue window settings are submitted as well as coronal and sagittal reconstructions. There are 5 lumbar type vertebra identified. There is levoconvex scoliotic curvature centered at L3 l evel redemonstrated. Vertebral body heights and disc space heights are fairly well-maintained. There is moderate multilevel anterior and lateral spurring. No large posterior disc herniations are seen on sagittal images. Axial images show the T12-L1 level to remain within normal limits. Axial images at the L1-L2 level demonstrate mild broad disc bulge minimally effacing anterior thecal sac, bilateral neural foramina remain patent. No significant change from prior. Axial images at L2-L3 level show mild facet degenerative changes and ligament flavum hypertrophy. The re is broad-based posterior disc protrusion mildly effacing anterior thecal sac. There is mild bilate ral anterior inferior neural foraminal narrowing. Axial images at the L3-L4 level show moderate facet degenerative changes and ligamentum flavum hypert rophy. There is broad-based posterior disc protrusion mildly effacing anterior thecal sac, there is m ild to moderate bilateral anterior inferior neural foraminal narrowing. No significant change from pr ior. Axial images at the L4-L5 level redemonstrate moderate to advanced facet degenerative changes bi laterally. There is broad disc bulge effacing anterior thecal sac on axial image 66. There is moderat e bilateral neural foraminal narrowing seen. No significant change from prior. Axial images at L5-S1 level show mild facet degenerative changes bilaterally. Spinal canal is preserv ed. Bilateral neural foramina are patent. There is sacralized L5 segment causing degenerative spurrin g and sclerosis at articulation with upper S1 level similar to prior. In addition there is spurring s uperior aspect of bilateral sacroiliac joints. 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 No significant change or progression from prior CT.
== END | disposition home or self-care (01) ==
LOC: RADCTMAIN 13:20
PROVIDERS: ATTEND Family Medicine
DX: J43.9 Emphysema, unspecified (principal); M47.816 Spondylosis without myelopathy or radiculopathy, lumbar region
CPT/HCPCS: 71250; 72131

== ENCOUNTER → 2018-08-17 | Outpatient (CLI) | payer MEDICARE ==
--- NOTE | 2018-08-17 12:41 | CT ---
EXAMINATION TYPE: CT pelvis wo con DATE OF EXAM: 08/17/2018 COMPARISON: 09/03/2017 HISTORY: Abnormal PSA level CT DLP: 827 mGycm Automated exposure control for dose reduction was used. FINDINGS: Loops of bowel distended with oral contrast normal. There are some loops of bowel lacking oral contra st limiting their evaluation. A normal air-filled appendix is present. Urinary bladder is unremarkable. Prostate is prominent. No discrete masses are identified. No suspici ous adenopathy is evident. Osseous structures appear intact without suspicious sclerotic lesions. Facet degenerative changes are within the lower lumbar spine. Vascular calcifications within the aorta and iliac vessels. IMPRESSION: 1. MILD PROMINENCE OF THE PROSTATE. DISCRETE FOR PROSTATE CANCER IS NOT IDENTIFIED. 2. NO SUSPICIOUS CHANGES TO SUGGEST METASTATIC DISEASE FROM PROSTATE CANCER..
--- NOTE | 2018-08-17 14:12 | NM ---
EXAMINATION TYPE: NM bone scan whole body DATE OF EXAM: 08/17/2018 COMPARISON: NONE HISTORY: Prostate cancer Delayed whole-body scanning was performed following the injection of 25.5 mCi Tc 99m MDP. Images wer e acquired 3 hours post injection. FINDINGS: Suspicious focal uptake is not identified. There is a small focal area of increased radiotracer on the anterior lateral inferior right sternum. This could be posttraumatic in nature. Metastatic lesion is considered less likely but not entirely e xcluded. Mild uptake is within the bilateral knees, most likely degenerative in nature. Degenerative type uptake is noted within the right wrist. Mild uptake is within the right posterior T12-L1 level m ost likely degenerative in nature. IMPRESSION: 1. Uptake in the inferior lateral right costal sternal junction more likely posttraumatic in nature. 2. Additional areas of uptake most likely related to degenerative joint changes.
== END | disposition home or self-care (01) ==
LOC: RADNMMAIN 09:57
PROVIDERS: ATTEND Family Medicine
DX: C61 Malignant neoplasm of prostate (principal)
CPT/HCPCS: 72192; 78306; A9503

== ENCOUNTER → 2018-12-18 | Outpatient (CLI) | payer MEDICARE | LOC: LABWHC1 11:32 | PROVIDERS: ATTEND Radiology Radiation Oncology | DX: C61 Malignant neoplasm of prostate (principal); Z87.891 Personal history of nicotine dependence | CPT/HCPCS: 36415; 84153 ==

== ENCOUNTER 2019-03-05 15:25 | Emergency (ER) | payer MEDICARE ==
[2019-03-05 15:38] VITALS: BP 149/71; PULSE 78; RESP 18; TEMP 98.8
--- NOTE | 2019-03-05 16:24 | XR ---
EXAMINATION TYPE: XR Hip Complete RT DATE OF EXAM: 03/05/2019 COMPARISON: NONE HISTORY: Pain TECHNIQUE: 2 views submitted FINDINGS: There is no evidence of erosive change or acute fracture. Moderate concentric narrowing of the joint space. IMPRESSION: 1. No evidence of acute fracture or dislocation. 2. Arthropathy.
--- NOTE | 2019-03-05 16:31 | ED ---
General Adult HPI - General Chief complaint: Extremity Injury, Lower Stated complaint: fall/leg pain Time Seen by Provider: 03/05/19 15:44 Source: patient Mode of arrival: wheelchair Limitations: no limitations - History of Present Illness Initial comments: Patient is 78-year-old male presents emergency Department with right leg pain. Patient reports that he was at home working around the house earlier today when he slipped and fell on his right hip. Patient reports the pain is exacerbated with hip extension and alleviated with rest. Patient reports the pain is located at the right hip and radiates distally along the posterior aspect of the upper leg to the popliteal region. Patient reports using cold compresses with minimal improvement. Patient denies a history of blood clots, prolonged periods of activity, shortness of breath, cough, chest pain or chest tightness. Patient denies taking any medication to alleviate the symptoms. - Related Data Home Medications Medication Instructions Recorded Confirmed Lisinopril [Prinivil] 10 mg PO DAILY 07/15/14 08/02/18 Rosuvastatin Calcium [Crestor] 20 mg PO DAILY 12/04/15 08/02/18 Clopidogrel Bisulfate [Plavix] 75 mg PO HS 09/03/17 08/02/18 Isosorbide Mononitrate ER [Imdur] 30 mg PO BID 09/03/17 08/02/18 Nitroglycerin Sl Tabs [Nitrostat] 0.4 mg SUBLINGUAL Q5M PRN 09/03/17 08/02/18 Ranolazine [Ranexa] 500 mg PO BID 09/03/17 08/02/18 Ipratropium Nebulized [Atrovent 0.5 mg INHALATION Q6HR PRN 09/20/17 08/02/18 Nebulized] Multivitamins, Thera [Multivitamin 1 tab PO DAILY 09/20/17 08/02/18 (formulary)] Fenofibrate [Lofibra] 160 mg PO HS 07/25/18 08/02/18 Previous Rx's Medication Instructions Recorded Apixaban [Eliquis] 2.5 mg PO BID #60 tab 04/02/15 Cyclobenzaprine [Flexeril] 10 mg PO TID PRN #15 tab 03/05/19 Allergies Allergy/AdvReac Type Severity Reaction Status Date / Time cortisone [Cortisone] Allergy Swelling Verified 03/05/19 15:37 and itching Review of Systems ROS Statement: Those systems with pertinent positive or pertinent negative responses have been documented in the HPI. ROS Other: All systems not noted in ROS Statement are negative. Past Medical History Past Medical History: Atrial Fibrillation, Coronary Artery Disease (CAD), GI Bleed, Hyperlipidemia, Hypertension, Pneumonia, Skin Disorder, Sleep Apnea/CPAP/BIPAP Additional Past Medical History / Comment(s): back pain-increased pain with walking,Vertigo, hiatal hernia, gout, eczema, bleeds easily,uses cpap History of Any Multi-Drug Resistant Organisms: None Reported Past Surgical History: Heart Catheterization With Stent, Orthopedic Surgery Additional Past Surgical History / Comment(s): Exploratory Abdominal Surgery; ORIF titanium/screws in LT Ankle. REPAIR BICEP TENDON LT ARM. RT CATARACT. STENTS X2. cyst removed from under chin, Past Anesthesia/Blood Transfusion Reactions: Previous Problems w/ Anesthesia Additional Past Anesthesia/Blood Transfusion Reaction / Comment(s): DEVELOPED AFIB AFTER CATARACT SURG 2013 Date of Last Stent Placement:: 2002 Past Psychological History: No Psychological Hx Reported Smoking Status: Former smoker Past Alcohol Use History: None Reported Past Drug Use History: None Reported - Past Family History Mother Family Medical History: Myocardial Infarction ([place]) Father Family Medical History: Myocardial Infarction ([place]) General Exam Limitations: no limitations General appearance: alert, in no apparent distress Head exam: Present: atraumatic, normocephalic, normal inspection Eye exam: Present: normal appearance, PERRL, EOMI Pupils: Present: normal accommodation ENT exam: Present: normal exam, mucous membranes moist, normal external ear exam Neck exam: Present: normal inspection Respiratory exam: Present: normal lung sounds bilaterally, respiratory distress, rhonchi Cardiovascular Exam: Present: regular rate, normal heart sounds. Absent: normal rhythm (A. fib) Extremities exam: Present: normal inspection, tenderness (Tenderness with palpation on the right hip. Pain with hip extension), normal capillary refill, other (+2 dorsalis pedis and posterior tibialis, bilaterally.). Absent: full ROM (Limited range of motion with the right hip due to pain.), pedal edema, joint swelling, calf tenderness Back exam: Present: normal inspection, full ROM. Absent: tenderness, CVA tenderness (R), CVA tenderness (L) Neurological exam: Present: alert, oriented X3 Psychiatric exam: Present: normal affect, normal mood Skin exam: Present: warm, intact, normal color Course Vital Signs 03/05/19 15:35 Temperature 98.8 F Pulse Rate 78 Respiratory 18 Rate Blood Pressure 149/71 O2 Sat by Pulse 96 Oximetry Medical Decision Making - Medical Decision Making Patient is a 78-year-old male presenting to emergency Department with right hip pain. X-ray of the right hip is negative for acute fractures or dislocations. X-rays suggestive of arthritic changes. At this point I suspect the pain is due to the trauma to the region and is muscular skeletal nature. I advised the patient to alternate between Tylenol and ibuprofen for pain control. Patient advised to keep warm compress to help relax the muscles. Patient will also be prescribed Flexeril and advised not to drive or operate heavy machinery when taking medication. Patient advised to follow-up with orthopedics. Patient advised to return to emergency department if symptoms worsen. Case discussed with physician. Disposition Clinical Impression: Sprain of right hip Disposition: HOME SELF-CARE Condition: Stable Instructions (If sedation given, give patient instructions): Hip Sprain (ED) Additional Instructions: Please alternate between Tylenol and ibuprofen for pain control. Please keep warm compress and area of injury. Please take prescribed medication as directed and do not attempt to drive or operate heavy machinery when taking it. Please follow with primary care. Prescriptions: Cyclobenzaprine [Flexeril] 10 mg PO TID PRN #15 tab PRN Reason: Muscle Spasm Is patient prescribed a controlled substance at d/c from ED?: No Referrals: Kojo Viveros MD [Primary Care Provider] - 1-2 days Time of Disposition: 16:31
== END 2019-03-05 16:55 | disposition home or self-care (01) ==
LOC: EC 15:25
DX: S73.101A Unspecified sprain of right hip, initial encounter (principal); R06.03 Acute respiratory distress; I48.91 Unspecified atrial fibrillation; I25.10 Atherosclerotic heart disease of native coronary artery without angina pectoris; E78.5 Hyperlipidemia, unspecified; I10 Essential (primary) hypertension; G47.30 Sleep apnea, unspecified; Z87.891 Personal history of nicotine dependence; Z88.8 Allergy status to other drugs, medicaments and biological substances; Z79.02 Long term (current) use of antithrombotics/antiplatelets; Z79.899 Other long term (current) drug therapy; Z95.5 Presence of coronary angioplasty implant and graft; Z99.89 Dependence on other enabling machines and devices; W01.0XXA Fall on same level from slipping, tripping and stumbling without subsequent striking against object, initial encounter; Y93.89 Activity, other specified; Y92.009 Unspecified place in unspecified non-institutional (private) residence as the place of occurrence of the external cause
CPT/HCPCS: 73502; 99283

== ENCOUNTER → 2019-05-08 | Outpatient (CLI) | payer MEDICARE ==
--- NOTE | 2019-05-08 13:52 | XR ---
EXAMINATION TYPE: XR foot complete 3 views LT, XR toes LT, 3 views coned-down great toe DATE OF EXAM: 05/08/2019 COMPARISON: NONE HISTORY: 78-year-old male with fall and pain FINDINGS: Oblique intra-articular, nondisplaced fracture across the medial half of the first distal phalangeal base. No articular surface and congruence. Fracture also extends through a small incidental osteochon droma located medially. Associated soft tissue swelling. Small plantar calcaneal spur. Mild degenerat lucrecia change first MTP joint. IMPRESSION: Nondisplaced oblique fracture across the medial half of the first distal phalangeal base extending in to the IP joint. No articular surface incongruency. Associated soft tissue swelling.
== END | disposition home or self-care (01) ==
LOC: RADXRMAIN 13:17
PROVIDERS: ATTEND Family Medicine
DX: M79.672 Pain in left foot (principal)

== ENCOUNTER → 2019-07-05 | Outpatient (CLI) | payer MEDICARE ==
--- NOTE | 2019-07-06 10:18 | ECHOF ---
Referral Reason:CHF I42.1 MEASUREMENTS -------- HEIGHT: 195.6 cm WEIGHT: 129.3 kg BP: RVIDd: 3.5 cm (< 3.3) IVSd: 1.6 cm (0.6 - 1.1) LVIDd: 4.9 cm (3.9 - 5.3) LVPWd: 1.7 cm (0.6 - 1.1) IVSs: 2.3 cm LVIDs: 3.5 cm LVPWs: 2.1 cm LAESV Index (A-L): 42.30 ml/m Ao Diam: 2.9 cm (2.0 - 3.7) AV Cusp: 1.8 cm (1.5 - 2.6) LA Diam: 5.0 cm (2.7 - 3.8) RAP: 5.00 mmHg RVSP: 40.17 mmHg FINDINGS -------- Atrial fibrillation. This was a technically difficult study with suboptimal views. Morbid Obesity The left ventricular size is normal. There is moderate concentric left ventricular hypertrophy. O verall left ventricular systolic function is normal with, an EF between 55 - 60 %. Left ventricular fillimg pressure cannot be estimated due to Atrial fibrillation. The right ventricle is mildly enlarged. LA is severely dilated >40 ml/m2 The right atrium was not well visualized. 5.0mg of Lumason was utilized for enhancement of images Interatrial and interventricular septum intact. The aortic valve is trileaflet and appears structurally normal. Trace amount of aortic regurgitatio n. There is no evidence of aortic stenosis. Mild mitral annular calcification present. There is trace to mild mitral regurgitation. Mild tricuspid regurgitation present. There is mild pulmonary hypertension. The right ventricular systolic pressure, as measured by Doppler, is 40.17mmHg. Trace/mild (physiologic) pulmonic regurgitation. The aortic root size is normal. The ascending aorta is dilated measuring up to {3.9 cm}. IVC Not well visulized. Echo free space represents a pericardial fat pad. There is no pericardial effusion. CONCLUSIONS -------- 1. Atrial fibrillation. 2. This was a technically difficult study with suboptimal views. 3. Morbid Obesity 4. The left ventricular size is normal. 5. There is moderate concentric left ventricular hypertrophy. 6. Overall left ventricular systolic function is normal with, an EF between 55 - 60 %. 7. Left ventricular fillimg pressure cannot be estimated due to Atrial fibrillation. 8. The right ventricle is mildly enlarged. 9. LA is severely dilated >40 ml/m2 10. The right atrium was not well visualized. 11. 5.0mg of Lumason was utilized for enhancement of images 12. Interatrial and interventricular septum intact. 13. The aortic valve is trileaflet and appears structurally normal. 14. Trace amount of aortic regurgitation. 15. There is no evidence of aortic stenosis. 16. Mild mitral annular calcification present. 17. There is trace to mild mitral regurgitation. 18. Mild tricuspid regurgitation present. 19. There is mild pulmonary hypertension. 20. The right ventricular systolic pressure, as measured by Doppler, is 40.17mmHg. 21. Trace/mild (physiologic) pulmonic regurgitation. 22. The aortic root size is normal. 23. The ascending aorta is dilated measuring up to {3.9 cm}. 24. IVC Not well visulized. 25. Echo free space represents a pericardial fat pad. 26. There is no pericardial effusion. EMPLOYMENT CASE MANAGER: Evi Barr RDCS
== END | disposition home or self-care (01) ==
LOC: RADECHMAIN 12:54
PROVIDERS: ATTEND Internal Medicine Cardiovascular Disease
DX: I48.91 Unspecified atrial fibrillation (principal); E66.01 Morbid (severe) obesity due to excess calories; I08.1 Rheumatic disorders of both mitral and tricuspid valves; I27.20 Pulmonary hypertension, unspecified; I77.810 Thoracic aortic ectasia; I50.9 Heart failure, unspecified
CPT/HCPCS: C8929; Q9950; 93306

== ENCOUNTER → 2019-11-06 | Outpatient (CLI) | payer MEDICARE | END | disposition home or self-care (01) | LOC: LABWHC1 08:22 | PROVIDERS: ATTEND Radiology Radiation Oncology | DX: C61 Malignant neoplasm of prostate (principal); Z92.3 Personal history of irradiation; Z87.891 Personal history of nicotine dependence | CPT/HCPCS: 36415; 84153 ==

== ENCOUNTER 2019-11-30 15:40 | Emergency (ER) | payer MEDICARE ==
[2019-11-30] MEDS ORDERED: DIPH,PERTUS(ACELL)TETVAC-LF 0.5 ML VIAL IM ONE (15:48)
[2019-11-30 15:56] VITALS: BP 150/75; PULSE 83; RESP 18; TEMP 98
[2019-11-30 16:05] LABS: Anisocytosis Slight; Basophils % (A) 1 %; Eosinophils # (A) 0.1 k/uL (0-0.7); Eosinophils % (A) 2 %; HCT 41.1 % (39.0-53.0); HGB 13.9 gm/dL (13.0-17.5); Lymphocytes # (A) 0.6 k/uL (1.0-4.8); Lymphocytes % (A) 11 %; MCHC 33.9 g/dL (31.0-37.0); MCV 88.7 fL (80.0-100.0); Mean Platelet Volume 7.9; Monocytes # (A) 0.4 k/uL (0-1.0); Monocytes % (A) 6 %; Neutrophils # (A) 4.2 k/uL (1.3-7.7); Neutrophils % (A) 76 %; Platelet Count 260 k/uL (150-450); Poikilocytosis Slight; RBC 4.64 m/uL (4.30-5.90); RDW 16.1 % (11.5-15.5); WBC 5.5 k/uL (3.8-10.6)
--- NOTE | 2019-11-30 16:08 | XR ---
EXAMINATION TYPE: XR chest 1V portable DATE OF EXAM: 11/30/2019 Comparison: 09/04/2017 Clinical History: 79-year-old male fall off ladder, trauma Findings: Heart mild to moderately enlarged. No archana consolidation, pneumothorax, or pleural effusion is seen. Impression: Cardiomegaly. No definite acute process seen.
--- NOTE | 2019-11-30 16:09 | XR ---
EXAMINATION TYPE: XR pelvis AP view DATE OF EXAM: 11/30/2019 COMPARISON: NONE HISTORY: 79-year-old male fall off ladder, pain, trauma FINDINGS: SI joints appear symmetric and intact. Mild degenerative joint space narrowing of both hips with mild marginal spurring. Large patient body habitus results in underpenetration. No displaced fracture is seen. IMPRESSION: Limitation due to large patient body habitus. Mild bilateral hip OA. No displaced fracture seen.
[2019-11-30] MEDS ORDERED: ONDANSETRON 4 MG/2 ML VIAL IVP STA (16:12)
--- NOTE | 2019-11-30 16:12 | XR ---
EXAMINATION TYPE: XR tibia fibula LT DATE OF EXAM: 11/30/2019 COMPARISON: NONE HISTORY: 79-year-old male fall off ladder, injury and pain, anterior abrasion. TECHNIQUE: 2 views FINDINGS: Degenerative spurring in the patellofemoral compartment. There seems to be a [id number] knee j oint effusion. Extensor mechanism appears intact. Mild pretibial soft tissue swelling. No acute fract ure, subluxation, dislocation. Small plantar calcaneal spur. IMPRESSION: 1. Nonspecific knee joint effusion. There is some underlying patellofemoral compartment osteoarthrosi s and this may be reactive. If concern for traumatic knee joint effusion, consider dedicated radiogra phs of the knee. 2. Otherwise, tibia/fibula without acute osseous abnormality seen.
[2019-11-30 16:18] LABS: ALT 20 U/L (4-49); AST 31 U/L (17-59); African American GFR (CKD) 49 (>60 ml/min/1.73 sqM); Albumin 4.4 g/dL (3.5-5.0); Alcohol <10 mg/dL; Alkaline Phosphatase 37 U/L (38-126); Amylase 70 U/L (30-110); Anion Gap 11 mmol/L; Blood Urea Nitrogen 33 mg/dL (9-20); Calcium 9.9 mg/dL (8.4-10.2); Carbon Dioxide 22 mmol/L (22-30); Chloride 101 mmol/L (98-107); Glucose 150 mg/dL (74-99); Non-African American GFR(CKD) 43 (>60 ml/min/1.73 sqM); Potassium 4.3 mmol/L (3.5-5.1); Sodium 134 mmol/L (137-145); Total Bilirubin 0.7 mg/dL (0.2-1.3); Total Protein 6.9 g/dL (6.3-8.2)
[2019-11-30 16:28] LABS: Creatine Kinase 86 U/L (55-170)
--- NOTE | 2019-11-30 16:29 | ED ---
General Adult HPI - General Chief complaint: Fall Stated complaint: Fall Time Seen by Provider: 11/30/19 15:43 Source: patient, EMS Mode of arrival: EMS Limitations: no limitations - History of Present Illness Initial comments: Patient presents the ED by ambulance for evaluation status post fall. Patient was placed in a c-collar by EMS. Patient states that he was taking down some [place] decorations when the ladder that he was standing on shifted, causing him to fall down. Patient states that he was on the fourth rung of the ladder when he fell. Patient states that he fell backwards and landed on his back, and he states that he hit the back of his head on the ground. Patient denies LOC. Patient is currently complaining of having a posterior headache and right lumbar back pain. Patient denies any other injury or site of pain. Patient denies focal numbness/weakness/neuro deficit, visual changes, speech difficulty, dizziness, neck/upper back pain, extremity pain, chest pain, dyspnea, palpitations, abdominal pain, nausea/vomiting, or any other symptoms or complaints. Patient is unsure of his last tetanus shot. Patient is currently on Xarelto anticoagulation treatment. - Related Data Home Medications Medication Instructions Recorded Confirmed Lisinopril [Prinivil] 10 mg PO DAILY 07/15/14 08/02/18 Rosuvastatin Calcium [Crestor] 20 mg PO DAILY 12/04/15 08/02/18 Clopidogrel Bisulfate [Plavix] 75 mg PO HS 09/03/17 08/02/18 Isosorbide Mononitrate ER [Imdur] 30 mg PO BID 09/03/17 08/02/18 Nitroglycerin Sl Tabs [Nitrostat] 0.4 mg SUBLINGUAL Q5M PRN 09/03/17 08/02/18 Ranolazine [Ranexa] 500 mg PO BID 09/03/17 08/02/18 Ipratropium Nebulized [Atrovent 0.5 mg INHALATION Q6HR PRN 09/20/17 08/02/18 Nebulized] Multivitamins, Thera [Multivitamin 1 tab PO DAILY 09/20/17 08/02/18 (formulary)] Fenofibrate [Lofibra] 160 mg PO HS 07/25/18 08/02/18 Previous Rx's Medication Instructions Recorded Apixaban [Eliquis] 2.5 mg PO BID #60 tab 04/02/15 Cyclobenzaprine [Flexeril] 10 mg PO TID PRN #15 tab 03/05/19 Allergies Allergy/AdvReac Type Severity Reaction Status Date / Time cortisone [Cortisone] Allergy Swelling Verified 11/30/19 15:56 and itching Review of Systems ROS Statement: Those systems with pertinent positive or pertinent negative responses have been documented in the HPI. ROS Other: All systems not noted in ROS Statement are negative. Past Medical History Past Medical History: Atrial Fibrillation, Coronary Artery Disease (CAD), GI Bleed, Hyperlipidemia, Hypertension, Pneumonia, Skin Disorder, Sleep Apnea/CPAP/BIPAP Additional Past Medical History / Comment(s): back pain-increased pain with walking,Vertigo, hiatal hernia, gout, eczema, bleeds easily,uses cpap History of Any Multi-Drug Resistant Organisms: None Reported Past Surgical History: Heart Catheterization With Stent, Orthopedic Surgery Additional Past Surgical History / Comment(s): Exploratory Abdominal Surgery; ORIF titanium/screws in LT Ankle. REPAIR BICEP TENDON LT ARM. RT CATARACT. STENTS X2. cyst removed from under chin, Past Anesthesia/Blood Transfusion Reactions: Previous Problems w/ Anesthesia Additional Past Anesthesia/Blood Transfusion Reaction / Comment(s): DEVELOPED AFIB AFTER CATARACT SURG 2013 Date of Last Stent Placement:: 2002 Past Psychological History: No Psychological Hx Reported Smoking Status: Former smoker Past Alcohol Use History: None Reported Past Drug Use History: None Reported - Past Family History Mother Family Medical History: Myocardial Infarction (DC) Father Family Medical History: Myocardial Infarction (DC) General Exam Limitations: no limitations General appearance: alert, in no apparent distress Head exam: Present: other (Left occipital scalp swelling and abrasion) Eye exam: Present: normal appearance, PERRL, EOMI ENT exam: Present: mucous membranes moist, TM's normal bilaterally Neck exam: Present: other (C-collar is in place; no step-off deformity is appreciated). Absent: tenderness Respiratory exam: Present: normal lung sounds bilaterally. Absent: respiratory distress, wheezes, rales, rhonchi Cardiovascular Exam: Present: regular rate, irregular rhythm, normal heart sounds, other (Normal radial and dorsalis pedis pulses bilaterally) GI/Abdominal exam: Present: soft. Absent: tenderness, guarding Extremities exam: Present: other (Pelvis is stable and nontender; patient has full range of motion at bilateral hips and knees; abrasions, swelling and tenderness are noted over left tibial region) Back exam: Present: normal inspection, other (No step-off deformity is appreciated). Absent: tenderness Neurological exam: Present: alert, oriented X3, CN II-XII intact. Absent: motor sensory deficit Psychiatric exam: Present: normal affect, normal mood Skin exam: Present: warm, dry, normal color Course Vital Signs 11/30/19 15:40 Temperature 98.0 F Pulse Rate 83 Respiratory 18 Rate Blood Pressure 150/75 O2 Sat by Pulse 97 Oximetry EKG Findings - EKG Comments: EKG Findings:: Atrial fibrillation, ventricular rate of 66 bpm, normal QRS interval, normal QT interval, normal axis, nonspecific T-wave abnormality Medical Decision Making - Medical Decision Making Patient has been alert and breathing comfortably while in the ED. Patient denies development of any new pain or symptoms while in the ED. Patient's imaging studies are all fairly unremarkable. Patient's labs are fairly unremarkable as well. Patient is aware of his test results, and he feels comfortable going home at this time. He was counseled about contusions, scalp contusion and abrasions. He was clearly explained return and follow-up instructions. He was instructed to return to the ED should he develop new or worsening pain or symptoms. He was also instructed to follow up closely with his primary care provider. He feels comfortable with this plan. - Lab Data Result diagrams: 11/30/19 15:45 11/30/19 15:45 Lab Results 11/30/19 11/30/19 11/30/19 Range/Units 15:45 15:45 15:45 WBC 5.5 (3.8-10.6) k/uL RBC 4.64 (4.30-5.90) m/uL Hgb 13.9 (13.0-17.5) gm/dL Hct 41.1 (39.0-53.0) % MCV 88.7 (80.0-100.0) fL MCH 30.0 (25.0-35.0) pg MCHC 33.9 (31.0-37.0) g/dL RDW 16.1 H (11.5-15.5) % Plt Count 260 (150-450) k/uL Neutrophils % 76 % Lymphocytes % 11 % Monocytes % 6 % Eosinophils % 2 % Basophils % 1 % Neutrophils # 4.2 (1.3-7.7) k/uL Lymphocytes # 0.6 L (1.0-4.8) k/uL Monocytes # 0.4 (0-1.0) k/uL Eosinophils # 0.1 (0-0.7) k/uL Basophils # 0.0 (0-0.2) k/uL Poikilocytosis Slight Anisocytosis Slight PT (9.0-12.0) sec INR (<1.2) APTT (22.0-30.0) sec Sodium 134 L (137-145) mmol/L Potassium 4.3 (3.5-5.1) mmol/L Chloride 101 (98-107) mmol/L Carbon Dioxide 22 (22-30) mmol/L Anion Gap 11 mmol/L BUN 33 H (9-20) mg/dL Creatinine 1.53 H (0.66-1.25) mg/dL Est GFR (CKD-EPI)AfAm 49 (>60 ml/min/1.73 sqM) Est GFR (CKD-EPI)NonAf 43 (>60 ml/min/1.73 sqM) Glucose 150 H (74-99) mg/dL Plasma Lactic Acid Yeison (0.7-2.0) mmol/L Calcium 9.9 (8.4-10.2) mg/dL Total Bilirubin 0.7 (0.2-1.3) mg/dL AST 31 (17-59) U/L ALT 20 (4-49) U/L Alkaline Phosphatase 37 L (38-126) U/L Total Creatine Kinase 86 (55-170) U/L CK-MB (CK-2) 1.8 (0.0-2.4) ng/mL CK-MB (CK-2) Rel Index 2.1 Troponin I <0.012 (0.000-0.034) ng/mL Total Protein 6.9 (6.3-8.2) g/dL Albumin 4.4 (3.5-5.0) g/dL Amylase 70 (30-110) U/L Lipase 242 (23-300) U/L Serum Alcohol <10 mg/dL Blood Type Blood Type Recheck Bld Type Recheck Status Antibody Screen Spec Expiration Date 11/30/19 11/30/19 11/30/19 Range/Units 15:45 15:45 16:04 WBC (3.8-10.6) k/uL RBC (4.30-5.90) m/uL Hgb (13.0-17.5) gm/dL Hct (39.0-53.0) % MCV (80.0-100.0) fL MCH (25.0-35.0) pg MCHC (31.0-37.0) g/dL RDW (11.5-15.5) % Plt Count (150-450) k/uL Neutrophils % % Lymphocytes % % Monocytes % % Eosinophils % % Basophils % % Neutrophils # (1.3-7.7) k/uL Lymphocytes # (1.0-4.8) k/uL Monocytes # (0-1.0) k/uL Eosinophils # (0-0.7) k/uL Basophils # (0-0.2) k/uL Poikilocytosis Anisocytosis PT 11.9 (9.0-12.0) sec INR 1.2 H (<1.2) APTT 26.0 (22.0-30.0) sec Sodium (137-145) mmol/L Potassium (3.5-5.1) mmol/L Chloride (98-107) mmol/L Carbon Dioxide (22-30) mmol/L Anion Gap mmol/L BUN (9-20) mg/dL Creatinine (0.66-1.25) mg/dL Est GFR (CKD-EPI)AfAm (>60 ml/min/1.73 sqM) Est GFR (CKD-EPI)NonAf (>60 ml/min/1.73 sqM) Glucose (74-99) mg/dL Plasma Lactic Acid Yeison 2.3 H* (0.7-2.0) mmol/L Calcium (8.4-10.2) mg/dL Total Bilirubin (0.2-1.3) mg/dL AST (17-59) U/L ALT (4-49) U/L Alkaline Phosphatase (38-126) U/L Total Creatine Kinase (55-170) U/L CK-MB (CK-2) (0.0-2.4) ng/mL CK-MB (CK-2) Rel Index Troponin I (0.000-0.034) ng/mL Total Protein (6.3-8.2) g/dL Albumin (3.5-5.0) g/dL Amylase (30-110) U/L Lipase (23-300) U/L Serum Alcohol mg/dL Blood Type B Positive Blood Type Recheck B Pos Bld Type Recheck Status No Antibody Screen NEGATIVE Spec Expiration Date 12/03/2019 - 1677 - Radiology Data Radiology results: report reviewed (Noncontrast head CT shows a moderate left posterior scalp contusion, no skull fracture, no intracranial abnormality; noncontract CT cervical spine is negative for fracture or malalignment), image reviewed (Chest X-ray shows cardiomegaly, but is otherwise negative; pelvis x- ray is negative for acute fracture or dislocation; left tib/fib x-rays are negative for acute fracture or dislocation, but do demonstrate a left knee joint effusion; lumbosacral spine x-rays are negative for fracture or malalignment) Disposition Clinical Impression: Fall, Scalp contusion, Abrasion, Contusion of left lower extremity, Lumbar back pain Disposition: HOME SELF-CARE Condition: Stable Instructions (If sedation given, give patient instructions): Contusion in Adults (ED), Abrasion (ED), Scalp Contusion in Adults (ED), Fall Prevention (ED) Additional Instructions: Return to the ER immediately should you develop new or worsening pain, shortness of breath, vomiting, feeling dizzy or faint, or new or worsening symptoms. Follow up closely with your primary care provider. Is patient prescribed a controlled substance at d/c from ED?: No Referrals: Kojo Viveros MD [Primary Care Provider] - 1-2 days Time of Disposition: 17:35
[2019-11-30 16:31] LABS: INR 1.2 (<1.2); Prothrombin Time 11.9 sec (9.0-12.0)
--- NOTE | 2019-11-30 16:32 | CT ---
EXAMINATION TYPE: CT brain martin holley con DATE OF EXAM: 11/30/2019 COMPARISON: 09/03/2017 HISTORY: 79-year-old male, fall and pain, posterior head laceration CT DLP: 1778.5 mGycm Automated exposure control for dose reduction was used. Technique: Examination of the head was done in axial plane without intravenous contrast. Coronal and sagittal reconstructions performed. CT of the cervical spine was obtained in axial plane without intravenous injection of contrast mater ial. Coronal and sagittal reformatted images were obtained from the axial views for evaluation of f ractures, spinal alignment and canal. FINDINGS: Head: There is no evidence of acute intracranial hemorrhage, acute ischemic changes, mass, mass-effect, or extra-axial fluid collection. There is no effacement of cerebral sulci or basal subarachnoid cister ns. There is no hydrocephalus. There is no midline shift. Cordova-white matter distinction is preserv ed. Moderate size left posterior scalp contusion. No underlying calvarial fracture. Mild generalized supratentorial volume loss. Atherosclerotic calcifications left vertebral artery and bilateral carotid siphons. 2.8 cm mucosal retention cyst left maxillary sinus. Rightward nasal septal deviation. Scattered mild- to-moderate mucosal thickening ethmoid air cells, right sphenoid sinus, and severe mucosal thickening left sphenoid sinus. Mastoid air cells well pneumatized. Cervical spine: No gradient cervical junction abnormality, predental space widening, or prevertebral soft tissue swel ling. Facet arthropathy lower cervical spine, particularly on the right side. Uncovertebral joint arthropat hy lower cervical spine. Mild degenerative disc disease with anterior endplate spondylosis mid to lower cervical spine. No acute fracture. Alignment is maintained. Assessment of the spinal canal from C5 and below is limited due to artifact from the patient's should ers. Variable mild neural foraminal narrowing throughout. Sagittal and coronal reformatted images confirm above findings. COMBINED IMPRESSION: 1. Moderate size left posterior scalp contusion. No underlying calvarial fracture or acute intracrani al abnormality seen. Mild generalized atrophy. 2. Mild to moderate pansinus disease. 3. No acute fracture or malalignment of the cervical spine. Mild multilevel spondylotic change.
[2019-11-30 16:41] LABS: Creatine Kinase MB 1.8 ng/mL (0.0-2.4); Troponin I <0.012 ng/mL (0.000-0.034)
[2019-11-30] MEDS ORDERED: SODIUM CHLORIDE 0.9% 1,000 ML IV ONE (16:45)
--- NOTE | 2019-11-30 17:28 | XR ---
EXAMINATION TYPE: XR lumbar spine 2 or 3V DATE OF EXAM: 11/30/2019 CLINICAL HISTORY: Pain after fall injury. TECHNIQUE: Frontal and lateral images of the lumbar spine are obtained. COMPARISON: CT lumbar spine August 04, 2018 FINDINGS: There are 5 lumbar type vertebral bodies redemonstrated with somewhat sacralized L5 segmen t again seen. The lumbar spine redemonstrates levoconvex scoliotic curvature centered at L1-L2 level without evidence of acute fracture or dislocation. Vertebral body heights and disk space heights are within normal limits. Fairly moderate multilevel anterior and lateral spurring greatest near the tho racolumbar junction is redemonstrated. Vascular calcification overlying abdominal aorta extending int o the iliac branch vessels is again seen. IMPRESSION: No acute fracture or dislocation is seen in the lumbar spine. No significant change from prior CT.
== END 2019-11-30 17:50 | disposition home or self-care (01) ==
LOC: EC 15:40
DX: S00.03XA Contusion of scalp, initial encounter (principal); S80.12XA Contusion of left lower leg, initial encounter; M54.5 Low back pain; S00.01XA Abrasion of scalp, initial encounter; I49.9 Cardiac arrhythmia, unspecified; I48.91 Unspecified atrial fibrillation; I25.10 Atherosclerotic heart disease of native coronary artery without angina pectoris; E78.5 Hyperlipidemia, unspecified; I10 Essential (primary) hypertension; G47.30 Sleep apnea, unspecified; Z87.891 Personal history of nicotine dependence; Z88.8 Allergy status to other drugs, medicaments and biological substances; Z79.01 Long term (current) use of anticoagulants; Z79.02 Long term (current) use of antithrombotics/antiplatelets; Z79.899 Other long term (current) drug therapy; Z95.5 Presence of coronary angioplasty implant and graft; Z96.698 Presence of other orthopedic joint implants; Z99.89 Dependence on other enabling machines and devices; Z23 Encounter for immunization; Z82.49 Family history of ischemic heart disease and other diseases of the circulatory system; W11.XXXA Fall on and from ladder, initial encounter; Y93.89 Activity, other specified; Y92.009 Unspecified place in unspecified non-institutional (private) residence as the place of occurrence of the external cause
CPT/HCPCS: 99284 ×2; 96374 ×2; 96361 ×2; 90471 ×2; 36415; 93005; 86900; 86901; 80053; 82150; 82550; 82553; 83605; 83690; 84484; 85025; 85610; 85730; 86850; 72100; 72170; 73590; 71045; 72125; 70450; 90715; G0480; J2405; 80320

== ENCOUNTER → 2020-01-07 | Outpatient (CLI) | payer MEDICARE ==
--- NOTE | 2020-01-07 13:04 | NM ---
EXAMINATION TYPE: NM hepatobiliary w EF DATE OF EXAM: 01/07/2020 COMPARISON: NONE HISTORY: Right upper quadrant pain TECHNIQUE: After the intravenous administration of 5.41 mCi Tc 99m Mebrofenin hepatobiliary scintigra phy is performed. Immediate images post injection. FINDINGS: There is satisfactory initial accumulation of tracer by the liver. The gallbladder is visualized wit hin 6 minutes. The small bowel activity is noted within 14 minutes. At one hour 8 ounces of oral en sure plus is given to mimic CCK and gallbladder ejection fraction is calculated at 86 %, borderline e levated. Therefore there is no scintigraphic evidence of cystic or common bile duct obstruction to s uggest acute cholecystitis or gallbladder dyskinesia. IMPRESSION: 1. No scintigraphic evidence of acute or chronic cholecystitis. 2. Borderline elevated gallbladder ejection fraction. This can be seen in biliary dyskinesia.
== END | disposition home or self-care (01) ==
LOC: RADNMMAIN 10:15
PROVIDERS: ATTEND Family Medicine
DX: R10.11 Right upper quadrant pain (principal)
CPT/HCPCS: 78226; A9537

== ENCOUNTER 2020-06-14 15:33 | Emergency (ER) | payer MEDICARE ==
[2020-06-14 16:04] VITALS: TEMP 98.4
--- NOTE | 2020-06-14 16:38 | ED ---
Lower Extremity Injury HPI - General Chief Complaint: Extremity Injury, Lower Stated Complaint: fall/1week leg injury Time Seen by Provider: 06/14/20 16:13 Source: patient Mode of arrival: wheelchair Limitations: no limitations - History of Present Illness Initial Comments: Patient is 79-year-old male presenting to the emergency department with chief co mplaint of right leg pain. Patient reports about one week ago he went down several stairs but no injuries to any other body parts. Patient states he continued to develop pain and swelling in his right lower leg. Patient reports UA has bilateral lower extremity edema minimally at baseline. However, there is increased swelling in his right lower leg ever since the incident with some bruising along the posterior aspect at the calf. Reports pain is exacerbated with ambulation and weightbearing but alleviated rest. Denies any chest pain or shortness of breath. Denies taking other medication to alleviate the symptoms. - Related Data Home Medications Medication Instructions Recorded Confirmed Lisinopril [Prinivil] 10 mg PO DAILY 07/15/14 08/02/18 Rosuvastatin Calcium [Crestor] 20 mg PO DAILY 12/04/15 08/02/18 Clopidogrel Bisulfate [Plavix] 75 mg PO HS 09/03/17 08/02/18 Isosorbide Mononitrate ER [Imdur] 30 mg PO BID 09/03/17 08/02/18 Nitroglycerin Sl Tabs [Nitrostat] 0.4 mg SUBLINGUAL Q5M PRN 09/03/17 08/02/18 Ranolazine [Ranexa] 500 mg PO BID 09/03/17 08/02/18 Ipratropium Nebulized [Atrovent 0.5 mg INHALATION Q6HR PRN 09/20/17 08/02/18 Nebulized] Multivitamins, Thera [Multivitamin 1 tab PO DAILY 09/20/17 08/02/18 (formulary)] Fenofibrate [Lofibra] 160 mg PO HS 07/25/18 08/02/18 Previous Rx's Medication Instructions Recorded Apixaban [Eliquis] 2.5 mg PO BID #60 tab 04/02/15 Cyclobenzaprine [Flexeril] 10 mg PO TID PRN #15 tab 03/05/19 Allergies Allergy/AdvReac Type Severity Reaction Status Date / Time cortisone [Cortisone] Allergy Swelling Verified 06/14/20 16:04 and itching Review of Systems ROS Statement: Those systems with pertinent positive or pertinent negative responses have been documented in the HPI. ROS Other: All systems not noted in ROS Statement are negative. Past Medical History Past Medical History: Atrial Fibrillation, Coronary Artery Disease (CAD), GI Bleed, Hyperlipidemia, Hypertension, Pneumonia, Skin Disorder, Sleep Apnea/CPAP/BIPAP Additional Past Medical History / Comment(s): back pain-increased pain with walking,Vertigo, hiatal hernia, gout, eczema, bleeds easily,uses cpap History of Any Multi-Drug Resistant Organisms: None Reported Past Surgical History: Cholecystectomy, Heart Catheterization With Stent, Orthopedic Surgery Additional Past Surgical History / Comment(s): Exploratory Abdominal Surgery; ORIF titanium/screws in LT Ankle. REPAIR BICEP TENDON LT ARM. RT CATARACT. STENTS X2. cyst removed from under chin, Past Anesthesia/Blood Transfusion Reactions: Previous Problems w/ Anesthesia Additional Past Anesthesia/Blood Transfusion Reaction / Comment(s): DEVELOPED AFIB AFTER CATARACT SURG 2013 Date of Last Stent Placement:: 2002 Past Psychological History: No Psychological Hx Reported Smoking Status: Never smoker Past Alcohol Use History: None Reported Past Drug Use History: None Reported - Past Family History Mother Family Medical History: Myocardial Infarction ([place]) Father Family Medical History: Myocardial Infarction ([place]) General Exam Limitations: no limitations General appearance: alert, in no apparent distress Head exam: Present: atraumatic, normocephalic, normal inspection Eye exam: Present: normal appearance, PERRL, EOMI Pupils: Present: normal accommodation ENT exam: Present: normal exam, normal oropharynx, mucous membranes moist, TM's normal bilaterally, normal external ear exam Neck exam: Present: normal inspection, full ROM. Absent: tenderness Respiratory exam: Present: normal lung sounds bilaterally. Absent: respiratory distress, wheezes, rales Cardiovascular Exam: Present: regular rate, normal rhythm, normal heart sounds Extremities exam: Present: tenderness (Medial lateral malleoli tenderness. Some tenderness near the calf with the region of ecchymosis.), normal capillary refill, pedal edema (+2 pitting), calf tenderness (Right calf), other (+2 dorsalis pedis and posterior tibialis bilaterally.). Absent: normal inspection (Ecchymosis noted on the right calf. Swelling along the right lower extremity starting at the knee and moving distally.), full ROM (Limited range of motion of plantarflexion due to pain.), joint swelling Back exam: Present: normal inspection, full ROM. Absent: tenderness, CVA tenderness (R), CVA tenderness (L) Neurological exam: Present: alert, oriented X3 Psychiatric exam: Present: normal affect, normal mood Skin exam: Present: warm, dry, intact, normal color Course Vital Signs 06/14/20 06/14/20 16:01 17:03 Temperature 98.4 F Pulse Rate 82 Respiratory 16 16 Rate Blood Pressure 138/64 O2 Sat by Pulse 96 Oximetry Medical Decision Making - Medical Decision Making patient is 79-year-old male presenting to the emergency department the chief complaint of right leg pain. The incident occurred about one week ago when he went down several stairs and injured his right leg. On physical examination, patient does have +2 pitting edema in the right lower extremity with a region of ecchymosis on the calf. Slight limited range of motion with plantarflexion due to pain. Pulses are normal within normal limits. He is neurovascularly intact in the right lower extremity. X-ray reveals some soft tissue swelling but no acute injuries in the tib-fib region, foot and ankle. Ultrasound was also performed to rule out a DVT. No signs of a DVT. Patient was advised to rest, ice, compress and elevate the leg. He was also advised to follow with costume specialist. Strict return parameters were thoroughly discussed the patient is sitting and agreeable. Case discussed with physician. Disposition Clinical Impression: Right leg swelling, Right leg injury Disposition: HOME SELF-CARE Condition: Stable Instructions (If sedation given, give patient instructions): Knee Pain (ED) Additional Instructions: Alternate between Tylenol and Motrin for pain control. Keep the leg elevated. Return to emergency department if symptoms worsen. Follow-up with costume specialist. Is patient prescribed a controlled substance at d/c from ED?: No Referrals: Kojo Viveros MD [Primary Care Provider] - 1-2 days Italo Farmer DO [Doctor of Osteopathic Medicine] - 1-2 days Time of Disposition: 18:31
--- NOTE | 2020-06-14 18:19 | XR ---
EXAMINATION TYPE: XR tibia fibula RT DATE OF EXAM: 06/14/2020 COMPARISON: NONE HISTORY: Fall. Pain. TECHNIQUE: 4 views FINDINGS: There is a plate fixing old fracture distal fibula. I see no acute fracture nor dislocation . Knee joint and ankle joint appear intact. There is plantar calcaneal spurring. There is vascular ca lcification. IMPRESSION: No acute abnormality of the right tibia and fibula.
--- NOTE | 2020-06-14 18:20 | XR ---
EXAMINATION TYPE: XR ankle complete RT DATE OF EXAM: 06/14/2020 COMPARISON: NONE HISTORY: Fall. Pain. TECHNIQUE: 3 views FINDINGS: Ankle mortise is anatomic. I see no fracture nor dislocation. There is plate fixing old fra cture distal fibula. There is mild plantar and Achilles calcaneal spurring. IMPRESSION: No acute bony abnormality of the right ankle. Mild soft tissue swelling.
--- NOTE | 2020-06-14 18:21 | XR ---
EXAMINATION TYPE: XR foot complete RT DATE OF EXAM: 06/14/2020 COMPARISON: NONE HISTORY: Fall. Pain. TECHNIQUE: 3 views FINDINGS: Metatarsals are intact. I see no fracture nor dislocation. There is minor spurring at the f irst MP joint. IMPRESSION: Calcaneal spurring. 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 No fracture seen.
--- NOTE | 2020-06-14 18:26 | US ---
EXAMINATION TYPE: US venous doppler duplex LE RT DATE OF EXAM: 06/14/2020 5:59 PM COMPARISON: NONE CLINICAL HISTORY: r/o dvt. pain and edema right leg. Patient fell 1 week ago and slide down 10 steps. Patient on Plavix SIDE PERFORMED: Right TECHNIQUE: The lower extremity deep venous system is examined utilizing real time linear array sonog jw with graded compression, doppler sonography and color-flow sonography. VESSELS IMAGED: External Iliac Vein (EIV) Common Femoral Vein Deep Femoral Vein Greater Saphenous Vein * Femoral Vein Popliteal Vein Small Saphenous Vein * Proximal Calf Veins (* superficial vessels) Right Leg: no evidence of DVT IMPRESSION: No sign of deep vein thrombosis in the right leg.
[2020-06-14] MEDS ORDERED: CEPHALEXIN 500MG STARTER PACK 4 CAP BTL PO STA (18:42)
[2020-06-14 19:08] VITALS: RESP 20
[2020-06-14 19:09] VITALS: BP 151/85; PULSE 80
== END 2020-06-14 19:09 | disposition home or self-care (01) ==
LOC: EC 15:33
DX: S80.11XA Contusion of right lower leg, initial encounter (principal); I25.10 Atherosclerotic heart disease of native coronary artery without angina pectoris; E78.5 Hyperlipidemia, unspecified; I10 Essential (primary) hypertension; G47.33 Obstructive sleep apnea (adult) (pediatric); Z79.899 Other long term (current) drug therapy; Z88.8 Allergy status to other drugs, medicaments and biological substances; Z95.5 Presence of coronary angioplasty implant and graft; Z98.41 Cataract extraction status, right eye; W10.9XXA Fall (on) (from) unspecified stairs and steps, initial encounter
CPT/HCPCS: 99284

== ENCOUNTER 2021-02-27 21:36 | Emergency (ER) | payer MEDICARE ==
[2021-02-27 21:41] VITALS: TEMP 98.2
[2021-02-27] MEDS ORDERED: SODIUM CHLORIDE 0.9% 1,000 ML IV STA (21:44)
--- NOTE | 2021-02-27 21:53 | ED ---
Recheck HPI - General Chief Complaint: Recheck/Abnormal Lab/Rx Stated Complaint: High Blood Pressure Time Seen by Provider: 02/27/21 21:43 Source: patient Mode of arrival: ambulatory Limitations: no limitations - Related Data Home Medications Medication Instructions Recorded Confirmed Lisinopril [Prinivil] 10 mg PO DAILY 07/15/14 08/02/18 Rosuvastatin Calcium [Crestor] 20 mg PO DAILY 12/04/15 08/02/18 Clopidogrel Bisulfate [Plavix] 75 mg PO HS 09/03/17 08/02/18 Isosorbide Mononitrate ER [Imdur] 30 mg PO BID 09/03/17 08/02/18 Nitroglycerin Sl Tabs [Nitrostat] 0.4 mg SUBLINGUAL Q5M PRN 09/03/17 08/02/18 Ranolazine [Ranexa] 500 mg PO BID 09/03/17 08/02/18 Ipratropium Nebulized [Atrovent 0.5 mg INHALATION Q6HR PRN 09/20/17 08/02/18 Nebulized] Multivitamins, Thera [Multivitamin 1 tab PO DAILY 09/20/17 08/02/18 (formulary)] Fenofibrate [Lofibra] 160 mg PO HS 07/25/18 08/02/18 Previous Rx's Medication Instructions Recorded Apixaban [Eliquis] 2.5 mg PO BID #60 tab 04/02/15 Cyclobenzaprine [Flexeril] 10 mg PO TID PRN #15 tab 03/05/19 Cephalexin [Keflex] 500 mg PO Q6HR #28 cap 06/14/20 Allergies Allergy/AdvReac Type Severity Reaction Status Date / Time cortisone [Cortisone] Allergy Swelling Verified 02/27/21 21:39 and itching Review of Systems ROS Statement: Those systems with pertinent positive or pertinent negative responses have been documented in the HPI. ROS Other: All systems not noted in ROS Statement are negative. Past Medical History Past Medical History: Atrial Fibrillation, Coronary Artery Disease (CAD), GI Bleed, Hyperlipidemia, Hypertension, Pneumonia, Skin Disorder, Sleep Apnea/CPAP/BIPAP Additional Past Medical History / Comment(s): back pain-increased pain with walking,Vertigo, hiatal hernia, gout, eczema, bleeds easily,uses cpap History of Any Multi-Drug Resistant Organisms: None Reported Past Surgical History: Cholecystectomy, Heart Catheterization With Stent, Orthopedic Surgery Additional Past Surgical History / Comment(s): Exploratory Abdominal Surgery; ORIF titanium/screws in LT Ankle. REPAIR BICEP TENDON LT ARM. RT CATARACT. STENTS X2. cyst removed from under chin, Past Anesthesia/Blood Transfusion Reactions: Previous Problems w/ Anesthesia Additional Past Anesthesia/Blood Transfusion Reaction / Comment(s): DEVELOPED AFIB AFTER CATARACT SURG 2013 Date of Last Stent Placement:: 2002 Past Psychological History: No Psychological Hx Reported Smoking Status: Never smoker Past Alcohol Use History: None Reported Past Drug Use History: None Reported - Past Family History Mother Family Medical History: Myocardial Infarction ([place]) Father Family Medical History: Myocardial Infarction ([place]) General Exam Limitations: no limitations Course Vital Signs 02/27/21 02/27/21 21:39 22:41 Temperature 98.2 F Pulse Rate 74 67 Respiratory 18 16 Rate Blood Pressure 143/59 122/55 O2 Sat by Pulse 98 97 Oximetry Medical Decision Making - Lab Data Result diagrams: 02/27/21 21:56 02/27/21 21:56 Lab Results 02/27/21 02/27/21 02/27/21 Range/Units 21:56 21:56 21:56 WBC 5.9 (3.8-10.6) k/uL RBC 4.61 (4.30-5.90) m/uL Hgb 13.5 (13.0-17.5) gm/dL Hct 38.5 L (39.0-53.0) % MCV 83.5 (80.0-100.0) fL MCH 29.2 (25.0-35.0) pg MCHC 35.0 (31.0-37.0) g/dL RDW 17.5 H (11.5-15.5) % Plt Count 207 (150-450) k/uL MPV 7.8 Neutrophils % 76 % Lymphocytes % 12 % Monocytes % 7 % Eosinophils % 3 % Basophils % 1 % Neutrophils # 4.5 (1.3-7.7) k/uL Lymphocytes # 0.7 L (1.0-4.8) k/uL Monocytes # 0.4 (0-1.0) k/uL Eosinophils # 0.2 (0-0.7) k/uL Basophils # 0.0 (0-0.2) k/uL Poikilocytosis Slight Anisocytosis Slight PT 10.7 (9.0-12.0) sec INR 1.0 (<1.2) APTT 24.4 (22.0-30.0) sec Sodium 137 (137-145) mmol/L Potassium 4.3 (3.5-5.1) mmol/L Chloride 104 (98-107) mmol/L Carbon Dioxide 22 (22-30) mmol/L Anion Gap 11 mmol/L BUN 31 H (9-20) mg/dL Creatinine 1.28 H (0.66-1.25) mg/dL Est GFR (CKD-EPI)AfAm 61 (>60 ml/min/1.73 sqM) Est GFR (CKD-EPI)NonAf 53 (>60 ml/min/1.73 sqM) Glucose 122 H (74-99) mg/dL Calcium 9.5 (8.4-10.2) mg/dL Phosphorus 3.6 (2.5-4.5) mg/dL Magnesium 1.9 (1.6-2.3) mg/dL Total Bilirubin 1.0 (0.2-1.3) mg/dL AST 25 (17-59) U/L ALT 16 (4-49) U/L Alkaline Phosphatase 72 (38-126) U/L Creatine Kinase 67 (55-170) U/L Troponin I (0.000-0.034) ng/mL NT-Pro-B Natriuret Pep pg/mL Total Protein 6.5 (6.3-8.2) g/dL Albumin 4.2 (3.5-5.0) g/dL 02/27/21 02/27/21 Range/Units 21:56 21:56 WBC (3.8-10.6) k/uL RBC (4.30-5.90) m/uL Hgb (13.0-17.5) gm/dL Hct (39.0-53.0) % MCV (80.0-100.0) fL MCH (25.0-35.0) pg MCHC (31.0-37.0) g/dL RDW (11.5-15.5) % Plt Count (150-450) k/uL MPV Neutrophils % % Lymphocytes % % Monocytes % % Eosinophils % % Basophils % % Neutrophils # (1.3-7.7) k/uL Lymphocytes # (1.0-4.8) k/uL Monocytes # (0-1.0) k/uL Eosinophils # (0-0.7) k/uL Basophils # (0-0.2) k/uL Poikilocytosis Anisocytosis PT (9.0-12.0) sec INR (<1.2) APTT (22.0-30.0) sec Sodium (137-145) mmol/L Potassium (3.5-5.1) mmol/L Chloride (98-107) mmol/L Carbon Dioxide (22-30) mmol/L Anion Gap mmol/L BUN (9-20) mg/dL Creatinine (0.66-1.25) mg/dL Est GFR (CKD-EPI)AfAm (>60 ml/min/1.73 sqM) Est GFR (CKD-EPI)NonAf (>60 ml/min/1.73 sqM) Glucose (74-99) mg/dL Calcium (8.4-10.2) mg/dL Phosphorus (2.5-4.5) mg/dL Magnesium (1.6-2.3) mg/dL Total Bilirubin (0.2-1.3) mg/dL AST (17-59) U/L ALT (4-49) U/L Alkaline Phosphatase (38-126) U/L Creatine Kinase (55-170) U/L Troponin I <0.012 (0.000-0.034) ng/mL NT-Pro-B Natriuret Pep 949 pg/mL Total Protein (6.3-8.2) g/dL Albumin (3.5-5.0) g/dL - EKG Data -: EKG Interpreted by Me (EKG shows A. fib 70 QRS 98 QTc 421) Disposition Clinical Impression: Hypertension Disposition: HOME SELF-CARE Condition: Good Instructions (If sedation given, give patient instructions): Hypertension (ED) Is patient prescribed a controlled substance at d/c from ED?: No Referrals: Kojo Viveros MD [Primary Care Provider] - 1-2 days
[2021-02-27 22:07] LABS: Anisocytosis Slight; Basophils % (A) 1 %; Eosinophils # (A) 0.2 k/uL (0-0.7); Eosinophils % (A) 3 %; HCT 38.5 % (39.0-53.0); HGB 13.5 gm/dL (13.0-17.5); Lymphocytes # (A) 0.7 k/uL (1.0-4.8); Lymphocytes % (A) 12 %; MCH 29.2 pg (25.0-35.0); MCV 83.5 fL (80.0-100.0); Mean Platelet Volume 7.8; Monocytes # (A) 0.4 k/uL (0-1.0); Monocytes % (A) 7 %; Neutrophils # (A) 4.5 k/uL (1.3-7.7); Neutrophils % (A) 76 %; Platelet Count 207 k/uL (150-450); Poikilocytosis Slight; RBC 4.61 m/uL (4.30-5.90); RDW 17.5 % (11.5-15.5); WBC 5.9 k/uL (3.8-10.6)
--- NOTE | 2021-02-27 22:07 | XR ---
EXAMINATION TYPE: XR chest 2V DATE OF EXAM: 02/27/2021 COMPARISON: NONE HISTORY: Weakness TECHNIQUE: 2 views FINDINGS: Heart is slightly enlarged. There is no heart failure. Lungs are clear of consolidation. Th oracic aorta is atheromatous. Bony thorax is intact. IMPRESSION: Cardiomegaly. No active cardiopulmonary disease. No change.
[2021-02-27 22:22] LABS: Partial Thromboplastin Time 24.4 sec (22.0-30.0); Prothrombin Time 10.7 sec (9.0-12.0)
[2021-02-27 22:23] LABS: Albumin 4.2 g/dL (3.5-5.0); Calcium 9.5 mg/dL (8.4-10.2); Magnesium 1.9 mg/dL (1.6-2.3); Phosphorus 3.6 mg/dL (2.5-4.5); Potassium 4.3 mmol/L (3.5-5.1); Total Protein 6.5 g/dL (6.3-8.2)
[2021-02-27 22:44] VITALS: BP 122/55; PULSE 67; RESP 16
== END 2021-02-27 23:17 | disposition home or self-care (01) ==
LOC: EC 21:36
DX: I10 Essential (primary) hypertension (principal); I48.91 Unspecified atrial fibrillation; I25.10 Atherosclerotic heart disease of native coronary artery without angina pectoris; E78.5 Hyperlipidemia, unspecified; G47.33 Obstructive sleep apnea (adult) (pediatric); Z99.81 Dependence on supplemental oxygen; Z95.5 Presence of coronary angioplasty implant and graft; Z90.49 Acquired absence of other specified parts of digestive tract
CPT/HCPCS: 36415; 71046; 80053; 82550; 83735; 83880; 84100; 84484; 85025; 85610; 85730; 93005; 99284

== ENCOUNTER 2021-05-23 11:06 | Emergency (ER) | payer MEDICARE ==
[2021-05-23 11:23] VITALS: TEMP 97.4
--- NOTE | 2021-05-23 12:50 | ED ---
General Adult HPI - General Chief complaint: Upper Respiratory Infection Stated complaint: cough, congestion, SOB Time Seen by Provider: 05/23/21 12:38 Source: patient, RN notes reviewed, old records reviewed Mode of arrival: ambulatory Limitations: no limitations - History of Present Illness Initial comments: This is a well-appearing 80-year-old white male, alert and oriented 4, presents to the emergency room ambulatory with complaint of persistent cough for the past 10 days. He states that he did see Dr. Viveros on Tuesday and was prescribed antibiotics and steroids. He states that he has been using nasal suction and did get large amounts of stringy mucus from his nose. He denies any fevers or chest pain. He states that his was sick for days prior to him becoming sick with similar symptoms. Patient has a history of atrial fibrillation, congestive heart failure and is taking Lasix. He states that he is unable to sleep at night due to the cough and is unable to tolerate his CPAP. -: days(s) (10) Severity scale (1-10): 0 Associated Symptoms: cough Treatments Prior to Arrival: other (Antibiotics and steroids) - Related Data Home Medications Medication Instructions Recorded Confirmed Lisinopril [Prinivil] 10 mg PO DAILY 07/15/14 08/02/18 Rosuvastatin Calcium [Crestor] 20 mg PO DAILY 12/04/15 08/02/18 Clopidogrel Bisulfate [Plavix] 75 mg PO HS 09/03/17 08/02/18 Isosorbide Mononitrate ER [Imdur] 30 mg PO BID 09/03/17 08/02/18 Nitroglycerin Sl Tabs [Nitrostat] 0.4 mg SUBLINGUAL Q5M PRN 09/03/17 08/02/18 Ranolazine [Ranexa] 500 mg PO BID 09/03/17 08/02/18 Ipratropium Nebulized [Atrovent 0.5 mg INHALATION Q6HR PRN 09/20/17 08/02/18 Nebulized] Multivitamins, Thera [Multivitamin 1 tab PO DAILY 09/20/17 08/02/18 (formulary)] Fenofibrate [Lofibra] 160 mg PO HS 07/25/18 08/02/18 Previous Rx's Medication Instructions Recorded Apixaban [Eliquis] 2.5 mg PO BID #60 tab 04/02/15 Cyclobenzaprine [Flexeril] 10 mg PO TID PRN #15 tab 03/05/19 Cephalexin [Keflex] 500 mg PO Q6HR #28 cap 06/14/20 Allergies Allergy/AdvReac Type Severity Reaction Status Date / Time cortisone [Cortisone] Allergy Swelling Verified 05/23/21 11:23 and itching Review of Systems ROS Statement: Those systems with pertinent positive or pertinent negative responses have been documented in the HPI. ROS Other: All systems not noted in ROS Statement are negative. Past Medical History Past Medical History: Atrial Fibrillation, Coronary Artery Disease (CAD), GI Bleed, Hyperlipidemia, Hypertension, Pneumonia, Skin Disorder, Sleep Apnea/CPAP/BIPAP Additional Past Medical History / Comment(s): back pain-increased pain with walking,Vertigo, hiatal hernia, gout, eczema, bleeds easily,uses cpap History of Any Multi-Drug Resistant Organisms: None Reported Past Surgical History: Cholecystectomy, Heart Catheterization With Stent, Orthopedic Surgery Additional Past Surgical History / Comment(s): Exploratory Abdominal Surgery; ORIF titanium/screws in LT Ankle. REPAIR BICEP TENDON LT ARM. RT CATARACT. STENTS X2. cyst removed from under chin, Past Anesthesia/Blood Transfusion Reactions: Previous Problems w/ Anesthesia Additional Past Anesthesia/Blood Transfusion Reaction / Comment(s): DEVELOPED AFIB AFTER CATARACT SURG 2013 Date of Last Stent Placement:: 2002 Past Psychological History: No Psychological Hx Reported Smoking Status: Never smoker Past Alcohol Use History: None Reported Past Drug Use History: None Reported - Past Family History Mother Family Medical History: Myocardial Infarction ([place]) Father Family Medical History: Myocardial Infarction ([place]) General Exam Limitations: no limitations General appearance: alert, in no apparent distress Head exam: Present: atraumatic, normocephalic, normal inspection Eye exam: Present: normal appearance, PERRL, EOMI. Absent: scleral icterus, conjunctival injection, periorbital swelling ENT exam: Present: normal exam, normal oropharynx, mucous membranes moist Neck exam: Present: normal inspection, full ROM. Absent: tenderness, meningismus, lymphadenopathy Respiratory exam: Present: normal lung sounds bilaterally. Absent: respiratory distress, wheezes, rales, rhonchi, stridor, chest wall tenderness, accessory muscle use, decreased breath sounds Cardiovascular Exam: Present: regular rate, normal rhythm, normal heart sounds. Absent: systolic murmur, diastolic murmur, rubs, gallop, clicks GI/Abdominal exam: Present: soft, normal bowel sounds. Absent: distended, tenderness, guarding, rebound, rigid Extremities exam: Present: normal inspection, full ROM, normal capillary refill. Absent: tenderness, pedal edema, joint swelling, calf tenderness Back exam: Present: full ROM. Absent: tenderness, CVA tenderness (R), CVA tenderness (L) Neurological exam: Present: alert, oriented X3, CN II-XII intact, normal gait Psychiatric exam: Present: normal affect, normal mood Skin exam: Present: warm, dry, intact, normal color. Absent: rash, cyanosis, diaphoretic, petechiae, pallor Course Vital Signs 05/23/21 05/23/21 11:20 14:00 Temperature 97.4 F L Pulse Rate 76 75 Respiratory 20 18 Rate Blood Pressure 141/65 140/66 O2 Sat by Pulse 98 97 Oximetry Medical Decision Making - Medical Decision Making Patient's coronavirus is negative. His chest x-ray shows no acute cardiopulmonary disease or infiltrates. He denies any chest pain or fevers. He was recently exposed to his with similar symptoms. This is likely viral. He is well-appearing vital signs are stable. He is agreeable to being discharged home and following up with his primary care doctor, continuing his steroids and doxycycline as prescribed by his primary care doctor. He was advised to return to the emergency room with any new or worsening symptoms including chest chest pain, shortness of breath or fevers. He is agreeable to discharge. - Lab Data Lab Results 05/23/21 Range/Units 11:37 Coronavirus (PCR) Not Detected (Not Detectd) Disposition Clinical Impression: Viral infection Disposition: HOME SELF-CARE Condition: Good Instructions (If sedation given, give patient instructions): Upper Respiratory Infection (ED) Additional Instructions: Continue medications prescribed by your primary care doctor. Increase your fluid intake. Return to the emergency room with any new or worsening symptoms including chest pain, shortness of breath or fevers. Is patient prescribed a controlled substance at d/c from ED?: No Referrals: Kojo Viveros MD [Primary Care Provider] - 1-2 days Time of Disposition: 14:46
--- NOTE | 2021-05-23 14:14 | XR ---
EXAMINATION TYPE: XR chest 2V DATE OF EXAM: 05/23/2021 COMPARISON: 02/27/2021 HISTORY: Weakness TECHNIQUE: 2 views FINDINGS: There is no heart failure nor confluent pneumonic infiltrate. Costophrenic angles are clear . Thoracic aorta is atheromatous. There is spurring in the thoracic spine. IMPRESSION: No active cardiopulmonary disease. No change. Normal heart.
[2021-05-23 15:01] VITALS: BP 140/66; PULSE 75; RESP 18
== END 2021-05-23 14:55 | disposition home or self-care (01) ==
LOC: EC 11:06
DX: B34.9 Viral infection, unspecified (principal); I11.0 Hypertensive heart disease with heart failure; I50.9 Heart failure, unspecified; I48.91 Unspecified atrial fibrillation; I25.10 Atherosclerotic heart disease of native coronary artery without angina pectoris; E78.5 Hyperlipidemia, unspecified; Z79.01 Long term (current) use of anticoagulants; Z82.49 Family history of ischemic heart disease and other diseases of the circulatory system; Z90.49 Acquired absence of other specified parts of digestive tract; Z79.899 Other long term (current) drug therapy
CPT/HCPCS: 71046; 87635; 99283

== ENCOUNTER 2023-08-30 09:00 | Inpatient (IN) | payer MEDICARE ==
--- NOTE | 2023-08-30 09:38 | XR ---
EXAMINATION TYPE: XR chest 2V DATE OF EXAM: 08/30/2023 9:26 AM CLINICAL INDICATION:Male, 83 years old with history of cough; [facility] COMPARISON: Chest radiographs from 1921. TECHNIQUE: XR chest 2V Frontal and lateral views of the chest. FINDINGS: Lungs/Pleura: Right perihilar/middle lobe masslike opacity. There is no evidence of pleural effusion, focal consolidation, or pneumothorax. Pulmonary vascularity: Unremarkable. Heart/mediastinum: Cardiomediastinal silhouette is unremarkable. Musculoskeletal: No acute osseous pathology. Other findings: None IMPRESSION: Right middle lobe airspace opacity correlate for pneumonia. Underlying mass not entirely excluded. Cl inical correlation and attention on follow-up imaging.
--- NOTE | 2023-08-30 12:56 | ED ---
General Adult HPI - General Chief complaint: Upper Respiratory Infection Stated complaint: SOB,Cough,Pneumonia Time Seen by Provider: 08/30/23 09:10 Source: patient Mode of arrival: ambulatory Limitations: no limitations - History of Present Illness Initial comments: 83-year-old male with past medical history of COPD not on home O2, A. fib who presents to the emergency department reporting cough and congestion. He went to urgent care on Tuesday for his symptoms and was diagnosed with pneumonia. He started taking Augmentin and has had 5 doses. He continues to wear CPAP at night. States that his work of breathing has been worse has increased. He is coughing more and more short of breath. He denies having any fevers. No chest pain. No lurks every swelling. No history of DVT or PE. He was tested for Covid and it was negative. He only uses an inhaler when needed. He did start taking a Medrol Dosepak that he had in his medicine cabinet on Tuesday. No other alleviating, precipitating or modifying factors - Related Data Home Medications Medication Instructions Recorded Confirmed lisinopriL [Prinivil] 10 mg PO BID 07/15/14 08/30/23 Clopidogrel Bisulfate [Plavix] 75 mg PO DAILY 09/03/17 08/30/23 Isosorbide Mononitrate ER [Imdur] 60 mg PO DAILY 09/03/17 08/30/23 Nitroglycerin Sl Tabs [Nitrostat] 0.4 mg SUBLINGUAL Q5M PRN 09/03/17 08/30/23 Ranolazine [Ranexa] 500 mg PO BID 09/03/17 08/30/23 Albuterol Nebulized [Ventolin 1.25 mg INHALATION RT-Q6H PRN 08/30/23 08/30/23 Nebulized (Accuneb)] Colchicine 0.6 mg PO DAILY PRN 08/30/23 08/30/23 Mv-Min/Folic/K1/Lycopen/Lutein 1 tab PO DAILY 08/30/23 08/30/23 [Centrum Silver Men Tablet] Omeprazole 40 mg PO DAILY 08/30/23 08/30/23 Ondansetron [Zofran] 4 mg PO Q6H PRN 08/30/23 08/30/23 Tirzepatide [Mounjaro] 10 mg SQ TU 08/30/23 08/30/23 allopurinoL [Zyloprim] 300 mg PO DAILY 08/30/23 08/30/23 Previous Rx's Medication Instructions Recorded Budesonide-Formot 160-4.5 Mcg 2 puff INHALATION RT-BID #1 each 09/02/23 [Symbicort 160-4.5 Mcg Inhaler] predniSONE 10 mg PO DAILY #30 tab 09/02/23 Allergies Allergy/AdvReac Type Severity Reaction Status Date / Time cortisone [Cortisone] Allergy Swelling Verified 08/30/23 13:05 and itching Review of Systems ROS Statement: Those systems with pertinent positive or pertinent negative responses have been documented in the HPI. ROS Other: All systems not noted in ROS Statement are negative. Past Medical History Past Medical History: Atrial Fibrillation, Coronary Artery Disease (CAD), GI Bleed, Hyperlipidemia, Hypertension, Pneumonia, Skin Disorder, Sleep Apnea/CPAP/BIPAP Additional Past Medical History / Comment(s): back pain-increased pain with walking,Vertigo, hiatal hernia, gout, eczema, bleeds easily,uses cpap History of Any Multi-Drug Resistant Organisms: None Reported Past Surgical History: Cholecystectomy, Heart Catheterization With Stent, Orthopedic Surgery Additional Past Surgical History / Comment(s): Exploratory Abdominal Surgery; ORIF titanium/screws in LT Ankle. REPAIR BICEP TENDON LT ARM. RT CATARACT. STENTS X2. cyst removed from under chin, Past Anesthesia/Blood Transfusion Reactions: Previous Problems w/ Anesthesia Additional Past Anesthesia/Blood Transfusion Reaction / Comment(s): DEVELOPED AFIB AFTER CATARACT SURG 2013 Date of Last Stent Placement:: 2002 Past Psychological History: No Psychological Hx Reported Smoking Status: Never smoker Past Alcohol Use History: None Reported Past Drug Use History: None Reported - Past Family History Mother Family Medical History: Myocardial Infarction (VT) Father Family Medical History: Myocardial Infarction (VT) General Exam Limitations: no limitations General appearance: alert, in no apparent distress Head exam: Present: atraumatic, normocephalic, normal inspection Eye exam: Present: normal appearance, PERRL, EOMI. Absent: scleral icterus, conjunctival injection, periorbital swelling ENT exam: Present: normal exam, mucous membranes moist Neck exam: Present: normal inspection. Absent: tenderness, meningismus, lymphadenopathy Respiratory exam: Present: wheezes (throughout all lung small[place]). Absent: respiratory distress, rales, rhonchi, stridor, accessory muscle use Cardiovascular Exam: Present: regular rate, normal rhythm, normal heart sounds. Absent: systolic murmur, diastolic murmur, rubs, gallop, clicks GI/Abdominal exam: Present: soft, normal bowel sounds. Absent: distended, tend erness, guarding, rebound, rigid Extremities exam: Present: normal inspection, full ROM, normal capillary refill. Absent: tenderness, pedal edema, joint swelling, calf tenderness Back exam: Present: normal inspection Neurological exam: Present: alert, oriented X3, CN II-XII intact Psychiatric exam: Present: normal affect, normal mood Skin exam: Present: warm, dry, intact, normal color. Absent: rash Course Vital Signs 08/30/23 08/30/23 08/30/23 09:05 12:21 15:16 Temperature 97.6 F Pulse Rate 82 62 80 Respiratory 20 18 Rate Blood Pressure 162/72 132/70 O2 Sat by Pulse 93 L 94 L Oximetry 08/30/23 08/30/23 08/30/23 15:25 15:38 18:50 Temperature Pulse Rate 84 60 65 Respiratory 18 18 Rate Blood Pressure 110/60 141/58 O2 Sat by Pulse 94 L 98 Oximetry Medical Decision Making - Medical Decision Making Was pt. sent in by a medical professional or institution (ALEXA Reynaga, ENTRY OPERATOR, urgent care, hospital, or prison...) When possible be specific @ -No Did you speak to anyone other than the patient for history (EMS, parent, family, police, friend...)? What history was obtained from this source @ -No Did you review nursing and triage notes (agree or disagree)? Why? @ -I reviewed and agree with nursing and triage notes Were old charts reviewed (outside hosp., previous admission, EMS record, old EKG, old radiological studies, urgent care reports/EKG's, prison records)? Report findings @ -No old charts were reviewed Differential Diagnosis (chest pain, altered mental status, abdominal pain women, abdominal pain men, vaginal bleeding, weakness, fever, dyspnea, syncope, headache, dizziness, GI bleed, back pain, seizure, CVA, palpatations, mental health, musculoskeletal)? @ -Differential Dyspnea: Coronary syndrome, arrhythmia, tamponade, asthma, COPD, pulmonary embolism, pneumonia, pneumothorax, pulmonary effusion, anaphylaxis, diabetic ketoacidosis, flailed chest, pulmonary contusion, diaphragmatic rupture, anemia, neuromuscular, this is not meant to be an all-inclusive list. EKG interpreted by me (3pts min.). @ -yes and demonstrates A. fib with rate of 72. QRS 96. QTC of 392. No acute ST segment elevations or depressions X-rays interpreted by me (1pt min.). @ -yes demonstrates possible right middle lobe pneumonia CT interpreted by me (1pt min.). @ -Yes and demonstrates possible bleb versus mass right middle lobe U/S interpreted by me (1pt. min.). @ -None done What testing was considered but not performed or refused? (CT, X-rays, U/S, labs)? Why? @ -None What meds were considered but not given or refused? Why? @ -None Did you discuss the management of the patient with other professionals (professionals i.e. DrMisti, PA, ENTRY OPERATOR, lab, RT, psych nurse, adoption social worker, customs and immigration officer, teacher, parking regulation enforcement officer, director of casework department)? Give summary @ -Admitting physician Dr. coulter Was smoking cessation discussed for >3mins.? @ -No Was critical care preformed (if so, how long)? @ -No Were there social determinants of health that impacted care today? How? (Homelessness, low income, unemployed, alcoholism, drug addiction, transportation, low edu. Level, literacy, decrease access to med. care, half-way, rehab)? @ -No Was there de-escalation of care discussed even if they declined (Discuss DNR or withdrawal of care, Hospice)? DNR status @ -No What co-morbidities impacted this encounter? (DM, HTN, Smoking, COPD, CAD, Cancer, CVA, ARF, Chemo, Hep., AIDS, mental health diagnosis, sleep apnea, morbid obesity)? @ -copd Was patient admitted / discharged? Hospital course, mention meds given and route, prescriptions, significant lab abnormalities, going to OR and other perti nent info. @ -Upon arrival patient is laced into room 15. Thorough history and physical exam was performed. Chest x-ray was performed which demonstrates a right middle lobe pneumonia. This does have an odd appearance and therefore this is followed by CT. CT demonstrates possible necrotic mass. Blood cultures were obtained. Patient is going to be initiated on antibiotics. He will be admitted for failure of outpatient antibiotics. Spoke with Dr. coulter was agreeable to admit the patient Undiagnosed new problem with uncertain prognosis? @ -No Drug Therapy requiring intensive monitoring for toxicity (Heparin, Nitro, Insulin, Cardizem)? @ -No Were any procedures done? @ -No Diagnosis/symptom? @ -Acute pneumonia, failed outpatient treatment, possible lung mass Acute, or Chronic, or Acute on Chronic? @ Acute Uncomplicated (without systemic symptoms) or Complicated (systemic symptoms)? @ -complicated Side effects of treatment? @ -No Exacerbation, Progression, or Severe Exacerbation? @ -No Poses a threat to life or bodily function? How? (Chest pain, USA, VT, pneumonia, PE, COPD, DKA, ARF, appy, cholecystitis, CVA, Diverticulitis, Homicidal, Suicidal, threat to staff... and all critical care pts) @ -No - Lab Data Result diagrams: 08/31/23 05:35 08/31/23 05:35 Lab Results 08/30/23 08/30/23 08/30/23 Range/Units 12:21 12:21 12:21 WBC 8.4 (3.8-10.6) k/uL RBC 4.75 (4.30-5.90) m/uL Hgb 14.6 (13.0-17.5) gm/dL Hct 43.0 (39.0-53.0) % MCV 90.6 (80.0-100.0) fL MCH 30.6 (25.0-35.0) pg MCHC 33.8 (31.0-37.0) g/dL RDW 16.4 H (11.5-15.5) % Plt Count 177 (150-450) k/uL MPV 8.8 Neutrophils % 84 % Lymphocytes % 6 % Monocytes % 5 % Eosinophils % 4 % Basophils % 0 % Neutrophils # 7.0 (1.3-7.7) k/uL Lymphocytes # 0.5 L (1.0-4.8) k/uL Monocytes # 0.5 (0-1.0) k/uL Eosinophils # 0.3 (0-0.7) k/uL Basophils # 0.0 (0-0.2) k/uL Poikilocytosis Slight Anisocytosis Slight PT 11.7 (10.0-12.5) sec INR 1.1 (<1.2) APTT 25.8 (22.0-30.0) sec Sodium 136 L (137-145) mmol/L Potassium 4.0 (3.5-5.1) mmol/L Chloride 101 (98-107) mmol/L Carbon Dioxide 19 L (22-30) mmol/L Anion Gap 16 mmol/L BUN 18 (9-20) mg/dL Creatinine 0.89 (0.66-1.25) mg/dL Est GFR (CKD-EPI)AfAm >90 (>60 ml/min/1.73 sqM) Est GFR (CKD-EPI)NonAf 79 (>60 ml/min/1.73 sqM) Glucose 133 H (74-99) mg/dL Lactic Ac Sepsis Rflx Plasma Lactic Acid Yeison (0.7-2.0) mmol/L Calcium 9.4 (8.4-10.2) mg/dL Total Bilirubin 1.1 (0.2-1.3) mg/dL AST 24 (17-59) U/L ALT 18 (4-49) U/L Alkaline Phosphatase 55 (38-126) U/L Troponin I (0.000-0.034) ng/mL NT-Pro-B Natriuret Pep 1660 pg/mL Total Protein 6.5 (6.3-8.2) g/dL Albumin 4.1 (3.5-5.0) g/dL 08/30/23 08/30/23 08/30/23 Range/Units 12:21 12:21 13:08 WBC (3.8-10.6) k/uL RBC (4.30-5.90) m/uL Hgb (13.0-17.5) gm/dL Hct (39.0-53.0) % MCV (80.0-100.0) fL MCH (25.0-35.0) pg MCHC (31.0-37.0) g/dL RDW (11.5-15.5) % Plt Count (150-450) k/uL MPV Neutrophils % % Lymphocytes % % Monocytes % % Eosinophils % % Basophils % % Neutrophils # (1.3-7.7) k/uL Lymphocytes # (1.0-4.8) k/uL Monocytes # (0-1.0) k/uL Eosinophils # (0-0.7) k/uL Basophils # (0-0.2) k/uL Poikilocytosis Anisocytosis PT (10.0-12.5) sec INR (<1.2) APTT (22.0-30.0) sec Sodium (137-145) mmol/L Potassium (3.5-5.1) mmol/L Chloride (98-107) mmol/L Carbon Dioxide (22-30) mmol/L Anion Gap mmol/L BUN (9-20) mg/dL Creatinine (0.66-1.25) mg/dL Est GFR (CKD-EPI)AfAm (>60 ml/min/1.73 sqM) Est GFR (CKD-EPI)NonAf (>60 ml/min/1.73 sqM) Glucose (74-99) mg/dL Lactic Ac Sepsis Rflx Y Plasma Lactic Acid Yeison 2.6 H* (0.7-2.0) mmol/L Calcium (8.4-10.2) mg/dL Total Bilirubin (0.2-1.3) mg/dL AST (17-59) U/L ALT (4-49) U/L Alkaline Phosphatase (38-126) U/L Troponin I <0.012 (0.000-0.034) ng/mL NT-Pro-B Natriuret Pep pg/mL Total Protein (6.3-8.2) g/dL Albumin (3.5-5.0) g/dL Disposition Clinical Impression: Community acquired bacterial pneumonia, Lung mass Disposition: ADMITTED IP TO THIS [facility] Condition: Stable Is patient prescribed a controlled substance at d/c from ED?: No Time of Disposition: 14:55 Decision to Admit Reason: Admit from EC Decision Date: 08/30/23 Decision Time: 14:55
[2023-08-30 12:59] LABS: Anisocytosis Slight; Basophils % (A) 0 %; Eosinophils # (A) 0.3 k/uL (0-0.7); Eosinophils % (A) 4 %; HGB 14.6 gm/dL (13.0-17.5); Lymphocytes # (A) 0.5 k/uL (1.0-4.8); Lymphocytes % (A) 6 %; MCH 30.6 pg (25.0-35.0); MCHC 33.8 g/dL (31.0-37.0); MCV 90.6 fL (80.0-100.0); Mean Platelet Volume 8.8; Monocytes # (A) 0.5 k/uL (0-1.0); Monocytes % (A) 5 %; Neutrophils % (A) 84 %; Platelet Count 177 k/uL (150-450); Poikilocytosis Slight; RBC 4.75 m/uL (4.30-5.90); RDW 16.4 % (11.5-15.5); WBC 8.4 k/uL (3.8-10.6)
[2023-08-30 13:01] LABS: ALT 18 U/L (4-49); AST 24 U/L (17-59); African American GFR (CKD) >90 (>60 ml/min/1.73 sqM); Albumin 4.1 g/dL (3.5-5.0); Alkaline Phosphatase 55 U/L (38-126); Anion Gap 16 mmol/L; Blood Urea Nitrogen 18 mg/dL (9-20); Calcium 9.4 mg/dL (8.4-10.2); Carbon Dioxide 19 mmol/L (22-30); Chloride 101 mmol/L (98-107); Glucose 133 mg/dL (74-99); Non-African American GFR(CKD) 79 (>60 ml/min/1.73 sqM); Sodium 136 mmol/L (137-145); Total Bilirubin 1.1 mg/dL (0.2-1.3); Total Protein 6.5 g/dL (6.3-8.2)
[2023-08-30] MEDS ORDERED: PNEUMONIA PROTOCOL UTILIZED 1 EACH MISC PO PRN (13:01)
[2023-08-30] MEDS ORDERED: AZITHROMYCIN 500 MG in SODIUM CHLORIDE 0.9% 250 ML IVPB STA (13:01)
[2023-08-30 13:02] LABS: INR 1.1 (<1.2); Partial Thromboplastin Time 25.8 sec (22.0-30.0); Prothrombin Time 11.7 sec (10.0-12.5)
[2023-08-30 13:09] LABS: NT-Pro-B-Type Natriuretic Pept 1660 pg/mL
[2023-08-30] MEDS ORDERED: RX INFO: IV CONTRAST WAS GIVEN 1 EACH MISC MISCELLANE PRN (13:44)
--- NOTE | 2023-08-30 14:32 | CT ---
EXAMINATION TYPE: CT chest w con DATE OF EXAM: 08/30/2023 COMPARISON: 08/04/2018 HISTORY: mass vs pna CT DLP: 728.6 mGycm Automated exposure control for dose reduction was used. TECHNIQUE: CT scan of the chest is performed with IV Contrast, patient injected with 100 mL of Isovue 370. MIP Images are created on CT scanner and reviewed. 3D reconstructed images are created on an independent workstation and reviewed. FINDINGS: There is a large 6.3 cm spiculated mass with central necrosis in the right lower lung consistent with neoplasm. There is no pleural effusion, pleural thickening or pneumothorax. The great vessels the chest are normal is no mediastinal, hilar or axillary adenopathy. No focal osseous lesions are seen. Limited scanning through the upper abdomen reveals cholecystectomy and there is mild left renal atrop hy. IMPRESSION: 6.3 cm necrotic spiculated mass in the right lower lung consistent with a malignant mass/neoplasm.
[2023-08-30] MEDS ORDERED: ACETAMINOPHEN TAB 325 MG TAB PO PRN (14:57)
[2023-08-30] MEDS ORDERED: NALOXONE 0.4 MG/ML 1 ML VIAL IV PRN (14:57)
[2023-08-30] MEDS: IPRATROPIUM-ALBUTEROL 3 ML NEB INHALATION PRN ×2 (15:16→20:19)
[2023-08-30] MEDS: SODIUM CHLORIDE 0.9% 1,000 ML IV SCH ×2 (15:36→22:50)
[2023-08-30] MEDS ORDERED: NITROGLYCERIN SL TABS 0.4 MG TAB SUBLINGUAL PRN (19:19)
[2023-08-30] MEDS ORDERED: ONDANSETRON 4 MG TAB PO PRN (19:19)
[2023-08-30] MEDS ORDERED: COLCHICINE 0.6 MG EACH PO PRN (19:19)
[2023-08-30] MEDS ORDERED: TIRZEPATIDE 10 MG/0.5 ML SQ SCH (20:00)
[2023-08-30] MEDS: lisinopriL 10 MG TAB PO SCH (22:13)
[2023-08-30] MEDS: ENOXAPARIN 40 MG/0.4 ML SYRINGE SQ SCH (22:13)
[2023-08-30] MEDS: RANOLAZINE 500 MG TAB.ER.12H PO SCH (22:13)
[2023-08-31] MEDS: SIMETHICONE 80 MG CHEWABLE PO SCH ×5 (01:27→20:13)
--- NOTE | 2023-08-31 04:38 | P.CNPUL ---
History of Present Illness Consult date: 08/31/23 Requesting physician: Maria Teresa Lloyd Chief complaint: Shortness of breath and cough History of present illness: I am seeing this patient in new consultation today 08/31/2023 after he failed outpatient treatment for presumptive pneumonia. Patient has a 83-year-old white male with past medical history significant for COPD, former tobacco smoker quitting in 1979, prostate cancer treated with radiation and in remission, atrial fibrillation, coronary artery disease, hyperlipidemia, hypertension, obstructive sleep apnea with CPAP. His primary care provider is Dr. Kojo Viveros. Patient states that he was treated outpatient at an urgent care clinic for pneumonia. He took a total of 5 doses of Augmentin, his symptoms progressively worsened, and he presented to the emergency room yesterday afternoon. He's complaining of shortness of breath, productive cough with light green sputum, chest soreness with coughing. Denies any fevers, chills, chest pain. He does complain of significant amount of dyspepsia. Chest CT demonstrates 6.3 cm necrotic spiculated mass in the right lower lung consistent with malignant/neoplasm. Patient denies history of lung cancer. Denies history of TB exposure. Admits recent weight loss in the last year, approximately 35 pounds. Has recently started Mounjaro. CBC on arrival unremarkable. No leukocytosis. BMP on arrival is a sodium 136, potassium 4, chloride 101, serum bicarb 19, BUN 18, creatinine 0.89, glucose 133, lactic acid 2.6 down to 1.7. Normal saline infusing at 130 ML's per hour. Troponin less than 0.012. NT proBNP 1660. Empirically started combination of azithromycin and Rocephin. Afebrile. Currently sitting up in the bedside recliner, on room air, in no acute distress. Vital signs are stable. Review of Systems REVIEW OF SYSTEMS: CONSTITUTIONAL: Admits a 35 pound weight loss over the last year, however, recently started a GLP1. Denies fevers. EYES: Denies change in vision. EARS, NOSE, MOUTH, THROAT: Denies headaches, denies sore throat. CARDIOVASCULAR: Denies chest pain, palpitations or syncopal episodes. RESPIRATORY: HPI GASTROINTESTINAL: Denies change in appetite, abdominal pain, nausea and v omiting, or diarrhea. Admits burping and heartburn GENITOURINARY: Denies hematuria, denies infections. MUSKULOSKELETAL: Denies pain, denies swelling. INTEGUMENTARY: Denies rash, denies eczema. NEUROLOGICAL: Denies recent memory loss, no recent seizure activity. PSYCHIATRIC: Denies anxiety, denies depression. 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 REPAIR BICEP TENDON LT ARM. RT CATARACT. STENTS X2. cyst removed from under chin, Past Anesthesia/Blood Transfusion Reactions: Previous Problems w/ Anesthesia Additional Past Anesthesia/Blood Transfusion Reaction / Comment(s): DEVELOPED AFIB AFTER CATARACT SURG 2013 Date of Last Stent Placement:: 2002 Past Psychological History: No Psychological Hx Reported Smoking Status: Never smoker Past Alcohol Use History: None Reported Additional Past Alcohol Use History / Comment(s): SMOKED 20 YRS, 1 PPD, QUIT 1979 Past Drug Use History: None Reported - Past Family History Mother Family Medical History: Myocardial Infarction (SD) Father Family Medical History: Myocardial Infarction (SD) Medications and Allergies Home Medications Medication Instructions Recorded Confirmed Type lisinopriL [Prinivil] 10 mg PO BID 07/15/14 08/30/23 History Clopidogrel Bisulfate [Plavix] 75 mg PO DAILY 09/03/17 08/30/23 History Isosorbide Mononitrate ER [Imdur] 60 mg PO DAILY 09/03/17 08/30/23 History Nitroglycerin Sl Tabs [Nitrostat] 0.4 mg SUBLINGUAL Q5M PRN 09/03/17 08/30/23 History Ranolazine [Ranexa] 500 mg PO BID 09/03/17 08/30/23 History Albuterol Nebulized [Ventolin 1.25 mg INHALATION RT-Q6H PRN 08/30/23 08/30/23 History Nebulized (Accuneb)] Amoxic-Pot Clav 875-125Mg 1 tab PO BID 08/30/23 08/30/23 History [Augmentin 875-125] Colchicine 0.6 mg PO DAILY PRN 08/30/23 08/30/23 History Mv-Min/Folic/K1/Lycopen/Lutein 1 tab PO DAILY 08/30/23 08/30/23 History [Centrum Silver Men Tablet] Omeprazole 40 mg PO DAILY 08/30/23 08/30/23 History Ondansetron [Zofran] 4 mg PO Q6H PRN 08/30/23 08/30/23 History Tirzepatide [Mounjaro] 10 mg SQ TU 08/30/23 08/30/23 History allopurinoL [Zyloprim] 300 mg PO DAILY 08/30/23 08/30/23 History Allergies Allergy/AdvReac Type Severity Reaction Status Date / Time cortisone [Cortisone] Allergy Swelling Verified 08/30/23 13:05 and itching Physical Exam Vitals: Vital Signs Temp Pulse Pulse Resp BP BP Pulse Ox 08/31/23 01:25 97.7 F 75 18 121/67 94 L 08/30/23 20:27 82 08/30/23 20:19 79 08/30/23 20:12 97.5 F L 72 18 162/84 96 08/30/23 18:50 65 18 141/58 98 08/30/23 15:38 60 18 110/60 94 L 08/30/23 15:25 84 08/30/23 15:16 80 08/30/23 12:21 62 18 132/70 94 L 08/30/23 09:05 97.6 F 82 20 162/72 93 L Intake and Output 08/30/23 08/30/23 08/31/23 14:59 22:59 06:59 Other: Weight 120.202 kg 120.202 kg GENERAL EXAM: Alert, 83-year-old white male, comfortable in no apparent distress. HEAD: Normocephalic and atraumatic EYES: Normal reaction of pupils, equal size. NOSE: Clear with pink turbinates. THROAT: No erythema or exudates. NECK: No masses, no JVD. CHEST: No chest wall deformity. LUNGS: Equal air entry with rhonchi heard bilaterally and scattered expiratory wheezes. On room air. No conversational dyspnea or accessory muscle use.. CVS: S1 and S2 normal with no audible murmur, irregular rhythm. No extra heart sounds ABDOMEN: No hepatosplenomegaly, active bowel sounds, no guarding or rigidity. SPINE: No scoliosis or deformity SKIN: No rashes CENTRAL NERVOUS SYSTEM: No focal deficits, tone is normal in all 4 extremities. EXTREMITIES: There is no peripheral edema, clubbing, or cyanosis. Peripheral pulses are intact. Results - Laboratory Findings CBC and BMP: 08/30/23 12:21 08/30/23 12:21 PT/INR, D-dimer PT 11.7 sec (10.0-12.5) 08/30/23 12:21 INR 1.1 (<1.2) 08/30/23 12:21 Abnormal lab findings: Abnormal Labs 08/30/23 08/30/23 08/30/23 12:21 12:21 12:21 RDW 16.4 H Lymphocytes # 0.5 L Sodium 136 L Carbon Dioxide 19 L Glucose 133 H Plasma Lactic Acid Yeison 2.6 H* - Diagnostic Findings Chest x-ray: image reviewed CT scan - chest: image reviewed Assessment and Plan Assessment: Right lower lung mass, chest CT demonstrates a 6.3 cm necrotic spiculated mass in the right lower lung, consistent with possible malignancy/neoplasm until proven otherwise. Acute dyspnea, possibly secondary to acute COPD exacerbation and above Paroxysmal atrial fibrillation Hypertension Hyperlipidemia Coronary artery disease, with prior stents History of GI bleed while on Xarelto GERD Obstructive sleep apnea with home CPAP Plan: Patient's medications, labs, imaging reviewed Patient will need further evaluation of his right lower lung mass, which is highly suspicious for malignancy until ruled otherwise. I did discuss this with the patient in depth. This will be followed up by Dr. Srivastava in the morning. Plan is for potential endobronchial biopsy later this week. We will hold Plavix. Continue empiric antibiotics and check procalcitonin level Start patient on a combination of bronchodilators, Symbicort inhaler, and IV Solu-Medrol. Currently on room air We will continue to follow, and further recommendations are forthcoming I have personally seen and examined the patient, performed the documentation and the assessment and plan as written. Number of minutes spent on the visit:20 Time with Patient: Greater than 30
[2023-08-31] MEDS: PANTOPRAZOLE 40 MG TABLET PO SCH (06:24)
[2023-08-31] MEDS: methylPREDNISolone SOD SUCCI 125 MG/2 ML VIAL IV SCH ×3 (06:24→17:07)
[2023-08-31] MEDS: SODIUM CHLORIDE 0.9% 1,000 ML IV SCH (06:28)
[2023-08-31] MEDS: lisinopriL 10 MG TAB PO SCH ×2 (08:18→20:13)
[2023-08-31] MEDS: allopurinoL 300 MG TAB PO SCH (08:18)
[2023-08-31] MEDS: ISOSORBIDE MONONITRATE ER 60 MG TAB.ER.24H PO SCH (08:18)
[2023-08-31] MEDS: RANOLAZINE 500 MG TAB.ER.12H PO SCH ×2 (08:18→20:13)
[2023-08-31] MEDS: ENOXAPARIN 40 MG/0.4 ML SYRINGE SQ SCH (08:19)
--- NOTE | 2023-08-31 08:30 | XR ---
EXAMINATION TYPE: XR chest 2V DATE OF EXAM: 08/31/2023 6:44 AM CLINICAL INDICATION:Male, 83 years old with history of pneumonia; COMPARISON: Chest radiograph from one day prior. CT present. TECHNIQUE: XR chest 2V Frontal and lateral views of the chest. FINDINGS: Lungs/Pleura: Stable mass. There is no evidence of pleural effusion, focal consolidation, or pneumoth orax. Pulmonary vascularity: Unremarkable. Heart/mediastinum: Cardiomediastinal silhouette is unremarkable. Musculoskeletal: No acute osseous pathology. IMPRESSION: Stable right necrotic spiculated mass in the right lower lung consistent with a malignant mass/neopla sm.
[2023-08-31 08:35] LABS: Basophils # (A) 0.03 X 10*3/uL (0.00-0.10); Basophils % (A) 0.4 %; Eosinophils # (A) 0.35 X 10*3/uL (0.04-0.35); Eosinophils % (A) 4.4 %; HCT 43.8 % (39.6-50.0); HGB 14.4 g/dL (13.0-17.0); Lymphocytes # (A) 0.72 X 10*3/uL (0.90-5.00); MCH 29.6 pg (27.0-32.0); MCHC 32.9 g/dL (32.0-37.0); MCV 89.9 FL (80.0-97.0); Mean Platelet Volume 10.8 FL (9.5-12.2); Monocytes % (A) 7.5 %; NRBC Per 100 WBC 0 X 10*3/uL (0.00-0.01); Neutrophils # (A) 6.21 X 10*3/uL (1.80-7.70); Neutrophils % (A) 77.8 %; Platelet Count 202 X 10*3/uL (140-440); RBC 4.87 X 10*6/uL (4.40-5.60); RDW 16.4 % (11.5-14.5); WBC 7.98 X 10*3/uL (4.50-10.00)
[2023-08-31 08:54] LABS: BUN/Creat Ratio 13.42 Ratio (12.00-20.00); Blood Urea Nitrogen 16.1 mg/dL (9.0-27.0); Chloride 103 mmol/L (96-109); Glucose 82 mg/dL (70-110); Potassium 4.5 mmol/L (3.5-5.5); Sodium 140 mmol/L (135-145)
[2023-08-31 08:55] LABS: Calcium 9.5 mg/dL (8.7-10.3); Carbon Dioxide 24.1 mmol/L (21.6-31.8)
[2023-08-31] MEDS ORDERED: CLOPIDOGREL 75 MG TAB PO SCH (09:00)
[2023-08-31] MEDS: IPRATROPIUM-ALBUTEROL 3 ML NEB INHALATION SCH ×4 (09:08→21:23)
[2023-08-31] MEDS: SYMBICORT 160-4.5 MCG INHALER INHALATION SCH ×2 (09:08→21:23)
[2023-08-31] MEDS ORDERED: ONDANSETRON 4 MG/2 ML VIAL IVP PRN (11:05)
[2023-08-31] MEDS ORDERED: ALPRAZolam 0.25 MG TAB PO PRN (11:05)
[2023-08-31] MEDS ORDERED: LACTULOSE 20 GM/30 ML CUP PO PRN (11:05)
[2023-08-31] MEDS ORDERED: CALCIUM CARBONATE 500 MG CHEWABLE PO PRN (11:05)
[2023-08-31] MEDS ORDERED: MELATONIN 3 MG TABLET PO PRN (11:05)
--- NOTE | 2023-08-31 13:23 | P.CNPUL ---
History of Present Illness Consult date: 08/31/23 Reason for consult: lung mass History of present illness: History of Present Illness Consult date: 08/31/23 Requesting physician: Maria Teresa Lloyd Chief complaint: Shortness of breath and cough History of present illness: I am seeing this patient in new consultation today 08/31/2023 after he failed outpatient treatment for presumptive pneumonia. Patient has a 83-year-old white male with past medical history significant for COPD, former tobacco smoker quitting in 1979, prostate cancer treated with radiation and in remission, atrial fibrillation, coronary artery disease, hyperlipidemia, hypertension, obstructive sleep apnea with CPAP. His primary care provider is Dr. Kojo Viveros. Patient states that he was treated outpatient at an urgent care clinic for pneumonia. He took a total of 5 doses of Augmentin, his symptoms progressively worsened, and he presented to the emergency room yesterday afternoon. He's complaining of shortness of breath, productive cough with light green sputum, chest soreness with coughing. Denies any fevers, chills, chest pain. He does complain of significant amount of dyspepsia. Chest CT demonstrates 6.3 cm necrotic spiculated mass in the right lower lung consistent with malignant/neoplasm. Patient denies history of lung cancer. Denies history of TB exposure. Admits recent weight loss in the last year, approximately 35 pounds. Has recently started Mounjaro. CBC on arrival unremarkable. No leukocytosis. BMP on arrival is a sodium 136, potassium 4, chloride 101, serum bicarb 19, BUN 18, creatinine 0.89, glucose 133, lactic acid 2.6 down to 1.7. Normal saline infusing at 130 ML's per hour. Troponin less than 0.012. NT proBNP 1660. Empirically started combination of azithromycin and Rocephin. Afebrile. Currently sitting up in the bedside recliner, on room air, in no acute distress. Vital signs are stable. As mentioned, the patient is a ex- smoker. He is having some cough and congestion which led to some antibiotic treatment on outpatient basis without any benefit. The concern for now is lung cancer. The patient has no hemoptysis. No previous exposure to tuberculosis. No history of any fungal infection. 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 He did admit to lose some weight over the years. Noted the patient also has history of atrial fibrillation. He is on no anticoagulants related to previous episode of GI bleed. The patient however is on Plavix and has a watchman in place. The Plavix was placed on hold in anticipation for a lung biopsy. Review of Systems REVIEW OF SYSTEMS: CONSTITUTIONAL: Admits a 35 pound weight loss over the last year, however, recently started a GLP1. Denies fevers. EYES: Denies change in vision. EARS, NOSE, MOUTH, THROAT: Denies headaches, denies sore throat. CARDIOVASCULAR: Denies chest pain, palpitations or syncopal episodes. RESPIRATORY: HPI GASTROINTESTINAL: Denies change in appetite, abdominal pain, nausea and vomiting, or diarrhea. Admits burping and heartburn GENITOURINARY: Denies hematuria, denies infections. MUSKULOSKELETAL: Denies pain, denies swelling. INTEGUMENTARY: Denies rash, denies eczema. NEUROLOGICAL: Denies recent memory loss, no recent seizure activity. PSYCHIATRIC: Denies anxiety, denies depression. HEMATOLOGIC/LYMPHATIC: Denies anemia, denies enlarged lymph nodes Past Medical History Past Medical History: Atrial Fibrillation, Coronary Artery Disease (CAD), GI Bl eed, Hyperlipidemia, Hypertension, Pneumonia, Skin Disorder, Sleep Apnea/CPAP/BIPAP Additional Past Medical History / Comment(s): back pain-increased pain with walking,Vertigo, hiatal hernia, gout, eczema, bleeds easily,uses cpap, History of Any Multi-Drug Resistant Organisms: None Reported Past Surgical History: Cholecystectomy, Heart Catheterization With Stent, Orthopedic Surgery Additional Past Surgical History / Comment(s): Exploratory Abdominal Surgery; ORIF titanium/screws in LT Ankle. REPAIR BICEP TENDON LT ARM. RT CATARACT. STENTS X2. cyst removed from under chin, Past Anesthesia/Blood Transfusion Reactions: Previous Problems w/ Anesthesia Additional Past Anesthesia/Blood Transfusion Reaction / Comment(s): DEVELOPED AFIB AFTER CATARACT SURG 2013 Date of Last Stent Placement:: 2002 Past Psychological History: No Psychological Hx Reported Smoking Status: Never smoker Past Alcohol Use History: None Reported Additional Past Alcohol Use History / Comment(s): SMOKED 20 YRS, 1 PPD, QUIT 1979 Past Drug Use History: None Reported - Past Family History Mother Family Medical History: Myocardial Infarction ([place]) Father Family Medical History: Myocardial Infarction ([place]) Medications and Allergies Home Medications Medication Instructions Recorded Confirmed Type lisinopriL [Prinivil] 10 mg PO BID 11/10/14 12/26/23 History Clopidogrel Bisulfate [Plavix] 75 mg PO DAILY 09/03/17 08/30/23 History Isosorbide Mononitrate ER [Imdur] 60 mg PO DAILY 09/03/17 08/30/23 History Nitroglycerin Sl Tabs [Nitrostat] 0.4 mg SUBLINGUAL Q5M PRN 09/03/17 08/30/23 History Ranolazine [Ranexa] 500 mg PO BID 09/03/17 08/30/23 History Albuterol Nebulized [Ventolin 1.25 mg INHALATION RT-Q6H PRN 08/30/23 08/30/23 History Nebulized (Accuneb)] Amoxic-Pot Clav 875-125Mg 1 tab PO BID 08/30/23 08/30/23 History [Augmentin 875-125] Colchicine 0.6 mg PO DAILY PRN 08/30/23 08/30/23 History Mv-Min/Folic/K1/Lycopen/Lutein 1 tab PO DAILY 08/30/23 08/30/23 History [Centrum Silver Men Tablet] Omeprazole 40 mg PO DAILY 08/30/23 08/30/23 History Ondansetron [Zofran] 4 mg PO Q6H PRN 08/30/23 08/30/23 History Tirzepatide [Mounjaro] 10 mg SQ TU 08/30/23 08/30/23 History allopurinoL [Zyloprim] 300 mg PO DAILY 08/30/23 08/30/23 History Allergies Allergy/AdvReac Type Severity Reaction Status Date / Time cortisone [Cortisone] Allergy Swelling Verified 08/30/23 13:05 and itching Physical Exam Vitals: Vital Signs Temp Pulse Pulse Resp BP BP Pulse Ox 08/31/23 01:25 97.7 F 75 18 121/67 94 L 08/30/23 20:27 82 08/30/23 20:19 79 08/30/23 20:12 97.5 F L 72 18 162/84 96 08/30/23 18:50 65 18 141/58 98 08/30/23 15:38 60 18 110/60 94 L 08/30/23 15:25 84 08/30/23 15:16 80 08/30/23 12:21 62 18 132/70 94 L 08/30/23 09:05 97.6 F 82 20 162/72 93 L Intake and Output 08/30/23 08/30/23 08/31/23 14:59 22:59 06:59 Other: Weight 120.202 kg 120.202 kg GENERAL EXAM: Alert, 83-year-old white male, comfortable in no apparent distress. HEAD: Normocephalic and atraumatic EYES: Normal reaction of pupils, equal size. NOSE: Clear with pink turbinates. THROAT: No erythema or exudates. NECK: No masses, no JVD. CHEST: No chest wall deformity. LUNGS: Equal air entry with rhonchi heard bilaterally and scattered expiratory wheezes. On room air. No conversational dyspnea or accessory muscle use.. CVS: S1 and S2 normal with no audible murmur, irregular rhythm. No extra heart sounds ABDOMEN: No hepatosplenomegaly, active bowel sounds, no guarding or rigidity. SPINE: No scoliosis or deformity SKIN: No rashes CENTRAL NERVOUS SYSTEM: No focal deficits, tone is normal in all 4 extremities. EXTREMITIES: There is no peripheral edema, clubbing, or cyanosis. Peripheral pulses are intact. Results - Laboratory Findings CBC and BMP: 08/30/23 12:21 08/30/23 12:21 PT/INR, D-dimer PT 11.7 sec (10.0-12.5) 08/30/23 12:21 INR 1.1 (<1.2) 08/30/23 12:21 Abnormal lab findings: Abnormal Labs 08/30/23 08/30/23 08/30/23 12:21 12:21 12:21 RDW 16.4 H Lymphocytes # 0.5 L Sodium 136 L Carbon Dioxide 19 L Glucose 133 H Plasma Lactic Acid Yeison 2.6 H* - Diagnostic Findings Chest x-ray: image reviewed CT scan - chest: image reviewed Assessment and Plan Assessment: Right lower lung mass, chest CT demonstrates a 6.3 cm necrotic spiculated mass in the right lower lung, consistent with possible malignancy/neoplasm until proven otherwise. Based on my review of the CAT scan, the masses in the superior in the posterior segment of the right lower lobe. Highly suspicious for malignancy with central cavitation, highly suspicious for squamous cell carcinoma. Infection is possible although felt to be less likely. Patient is currently off Plavix. Acute dyspnea, possibly secondary to acute COPD exacerbation and above Paroxysmal atrial fibrillation Hypertension Hyperlipidemia Coronary artery disease, with prior stents History of GI bleed while on Xarelto GERD Obstructive sleep apnea with home CPAP Plan: We'll plan for a robotic bronchoscopy to be done tomorrow Keep the Plavix on hold Procedure was extrinsically the patient and the patient was agreeable No need for antibiotics at this point in time and the patient has a low pro- calcitonin level Start patient on a combination of bronchodilators, Symbicort inhaler, and IV Solu-Medrol. Currently on room air We'll continue to follow Past Medical History Past Medical History: Atrial Fibrillation, Coronary Artery Disease (CAD), GI Bleed, Hyperlipidemia, Hypertension, Pneumonia, Skin Disorder, Sleep Apnea/CPAP/BIPAP Additional Past Medical History / Comment(s): back pain-increased pain with walking,Vertigo, hiatal hernia, gout, eczema, bleeds easily,uses cpap, History of Any Multi-Drug Resistant Organisms: None Reported Past Surgical History: Cholecystectomy, Heart Catheterization With Stent, Orthopedic Surgery Additional Past Surgical History / Comment(s): Exploratory Abdominal Surgery; ORIF titanium/screws in LT Ankle. REPAIR BICEP TENDON LT ARM. RT CATARACT. STENTS X2. cyst removed from under chin, Past Anesthesia/Blood Transfusion Reactions: Previous Problems w/ Anesthesia Additional Past Anesthesia/Blood Transfusion Reaction / Comment(s): DEVELOPED AFIB AFTER CATARACT SURG 2013 Date of Last Stent Placement:: 2002 Past Psychological History: No Psychological Hx Reported Smoking Status: Never smoker Past Alcohol Use History: None Reported Additional Past Alcohol Use History / Comment(s): SMOKED 20 YRS, 1 PPD, QUIT 1979 Past Drug Use History: None Reported - Past Family History Mother Family Medical History: Myocardial Infarction ([place]) Father Family Medical History: Myocardial Infarction ([place]) Medications and Allergies Home Medications Medication Instructions Recorded Confirmed Type lisinopriL [Prinivil] 10 mg PO BID 07/15/14 08/30/23 History Clopidogrel Bisulfate [Plavix] 75 mg PO DAILY 09/03/17 08/30/23 History Isosorbide Mononitrate ER [Imdur] 60 mg PO DAILY 09/03/17 08/30/23 History Nitroglycerin Sl Tabs [Nitrostat] 0.4 mg SUBLINGUAL Q5M PRN 09/03/17 08/30/23 History Ranolazine [Ranexa] 500 mg PO BID 09/03/17 08/30/23 History Albuterol Nebulized [Ventolin 1.25 mg INHALATION RT-Q6H PRN 08/30/23 08/30/23 History Nebulized (Accuneb)] Amoxic-Pot Clav 875-125Mg 1 tab PO BID 08/30/23 08/30/23 History [Augmentin 875-125] Colchicine 0.6 mg PO DAILY PRN 08/30/23 08/30/23 History Mv-Min/Folic/K1/Lycopen/Lutein 1 tab PO DAILY 08/30/23 08/30/23 History [Centrum Silver Men Tablet] Omeprazole 40 mg PO DAILY 08/30/23 08/30/23 History Ondansetron [Zofran] 4 mg PO Q6H PRN 08/30/23 08/30/23 History Tirzepatide [Mounjaro] 10 mg SQ TU 08/30/23 08/30/23 History allopurinoL [Zyloprim] 300 mg PO DAILY 08/30/23 08/30/23 History Allergies Allergy/AdvReac Type Severity Reaction Status Date / Time cortisone [Cortisone] Allergy Swelling Verified 08/30/23 13:05 and itching Physical Exam Vitals: Vital Signs Temp Pulse Pulse Resp BP BP Pulse Ox 08/31/23 12:26 68 08/31/23 12:17 72 08/31/23 09:16 68 08/31/23 09:08 64 94 L 08/31/23 07:49 97.7 F 58 L 17 137/73 95 08/31/23 01:25 97.7 F 75 18 121/67 94 L 08/30/23 20:27 82 08/30/23 20:19 79 08/30/23 20:12 97.5 F L 72 18 162/84 96 08/30/23 18:50 65 18 141/58 98 08/30/23 15:38 60 18 110/60 94 L 08/30/23 15:25 84 08/30/23 15:16 80 Intake and Output 08/30/23 08/31/23 08/31/23 22:59 06:59 14:59 Intake Total 2540 Balance 2540 Intake: Intake, IV Titration 1560 Amount Sodium Chloride 0.9% 1, 1560 000 ml @ 130 mls/hr IV . Q7H42M [facility] Rx#:[id number] Oral 980 Other: # Voids 2 Weight 120.202 kg Results - Laboratory Findings CBC and BMP: 08/31/23 05:35 08/31/23 05:35 PT/INR, D-dimer PT 11.7 sec (10.0-12.5) 08/30/23 12:21 INR 1.1 (<1.2) 08/30/23 12:21 Abnormal lab findings: Abnormal Labs 08/30/23 08/30/23 08/30/23 12:21 12:21 12:21 RDW 16.4 H Immature Gran # Lymphocytes # 0.5 L Sodium 136 L Carbon Dioxide 19 L Anion Gap Glucose 133 H Plasma Lactic Acid Yeison 2.6 H* 08/31/23 08/31/23 05:35 05:35 RDW 16.4 H Immature Gran # 0.07 H Lymphocytes # 0.72 L Sodium Carbon Dioxide Anion Gap 12.90 H Glucose Plasma Lactic Acid Yeison
--- NOTE | 2023-08-31 18:45 | P.HPIM ---
History of Present Illness H&P Date: 08/31/23 Chief Complaint: Short of breath Pleasant 83-year-old patient who follows with Dr. Kojo Viveros. I'm rounding for Dr. Kojo Viveros. Patient presents 2 days of increasing shortness of breath cough phlegm that is green in color. Wheezing. Patient has been Augmentin for last 5 days from the walk-in clinic. Symptoms are progressively getting worse decided to come in. Increased tiredness. Oral intake has been fair. Review of systems: GEN.: Tired EYES: None HEENT: None NECK: None RESPIRATORY: As above CARDIOVASCULAR: None GASTROINTESTINAL: None GENITOURINARY: None MUSCULOSKELETAL: None LYMPHATICS: None HEMATOLOGICAL: None PSYCHIATRY: None NEUROLOGICAL: None Social history: . 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 Smoked for 20 years 1 pack a day stopped in 1979. No alcohol. Physical examination: VITAL SIGNS: 97.6, 82, 20, 162/72, 93% room air upon presentation GENERAL: BMI 32.3, declining but awake not in distress. EYES: Pupils equal. Conjunctiva normal. HEENT: External appearance of nose and ears normal, oral cavity grossly normal. NECK: JVD not raised; masses not palpable. HEART: First and second heart sounds are normal; no edema. LUNGS: Respiratory rate increased, some scattered crackles decreased breath sounds. ABDOMEN: Soft, nontender, liver spleen not palpable, no masses palpable. PSYCH: Alert and oriented x3; mood and affect normal. MUSCULOSKELETAL:No Clubbing/cyanosis;muscles-grossly intact NEUROLOGICAL: Cranial nerves grossly intact; no facial asymmetry, power and sensation grossly intact. LYMPHATICS: No lymph nodes palpable in the axilla and neck INVESTIGATIONS, reviewed in the clinical context: 08/31/2023: White count 7.9 hemoglobin 14.4 platelets 202 sodium 140 potassium 4.5 creatinine 1.2 Lactic acid 2. 6 repeat 1.7 Procalcitonin 0.06. ProBNP 1660 Troponin I less than 0.012 Urine Legionella antigen negative EKG tracing personally reviewed by me-atrial fibrillation. Chest x-ray film personally reviewed by me-some hyperinflation and right-sided lung mass CT chest with contrast: 6.3 cm necrotic Spickler dated mass in the right lower lung Assessment and plan: -Suspect secondary pneumonia with underlying necrotic mass in the right lung. Suspect gram-negative organism. IV ceftriaxone. -Right lung mass necrotic spiculated. High suspicion for malignancy. Pulmonary consulted for bronchoscopy. -COPD exacerbation and a smoker DuoNeb, IV Solu-Medrol -Persistent atrial fibrillation, rate controlled -.CAD with a prior history of stent Plavix. Imdur ER. Ranexa -Essential hypertension Prinivil. -Obstructive sleep apnea uses CPAP at night -Gout Colchicine. Allopurinol -Full code Care was discussed with the patient. Pulmonary consulted. Past Medical History Past Medical History: Atrial Fibrillation, Coronary Artery Disease (CAD), GI Bleed, Hyperlipidemia, Hypertension, Pneumonia, Skin Disorder, Sleep Apnea/CPAP/BIPAP Additional Past Medical History / Comment(s): back pain-increased pain with walking,Vertigo, hiatal hernia, gout, eczema, bleeds easily,uses cpap, History of Any Multi-Drug Resistant Organisms: None Reported Past Surgical History: Cholecystectomy, Heart Catheterization With Stent, Orthopedic Surgery Additional Past Surgical History / Comment(s): Exploratory Abdominal Surgery; ORIF titanium/screws in LT Ankle. REPAIR BICEP TENDON LT ARM. RT CATARACT. STENTS X2. cyst removed from under chin, Past Anesthesia/Blood Transfusion Reactions: Previous Problems w/ Anesthesia Additional Past Anesthesia/Blood Transfusion Reaction / Comment(s): DEVELOPED AFIB AFTER CATARACT SURG 2013 Date of Last Stent Placement:: 2002 Past Psychological History: No Psychological Hx Reported Smoking Status: Never smoker Past Alcohol Use History: None Reported Additional Past Alcohol Use History / Comment(s): SMOKED 20 YRS, 1 PPD, QUIT 1979 Past Drug Use History: None Reported - Past Family History Mother Family Medical History: Myocardial Infarction ([place]) Father Family Medical History: Myocardial Infarction ([place]) Medications and Allergies Home Medications Medication Instructions Recorded Confirmed Type lisinopriL [Prinivil] 10 mg PO BID 07/15/14 08/30/23 History Clopidogrel Bisulfate [Plavix] 75 mg PO DAILY 09/03/17 08/30/23 History Isosorbide Mononitrate ER [Imdur] 60 mg PO DAILY 09/03/17 08/30/23 History Nitroglycerin Sl Tabs [Nitrostat] 0.4 mg SUBLINGUAL Q5M PRN 09/03/17 08/30/23 History Ranolazine [Ranexa] 500 mg PO BID 09/03/17 08/30/23 History Albuterol Nebulized [Ventolin 1.25 mg INHALATION RT-Q6H PRN 08/30/23 08/30/23 History Nebulized (Accuneb)] Amoxic-Pot Clav 875-125Mg 1 tab PO BID 08/30/23 08/30/23 History [Augmentin 875-125] Colchicine 0.6 mg PO DAILY PRN 08/30/23 08/30/23 History Mv-Min/Folic/K1/Lycopen/Lutein 1 tab PO DAILY 08/30/23 08/30/23 History [Centrum Silver Men Tablet] Omeprazole 40 mg PO DAILY 08/30/23 08/30/23 History Ondansetron [Zofran] 4 mg PO Q6H PRN 08/30/23 08/30/23 History Tirzepatide [Mounjaro] 10 mg SQ TU 08/30/23 08/30/23 History allopurinoL [Zyloprim] 300 mg PO DAILY 08/30/23 08/30/23 History Allergies Allergy/AdvReac Type Severity Reaction Status Date / Time cortisone [Cortisone] Allergy Swelling Verified 08/30/23 13:05 and itching Physical Exam Vitals: Vital Signs Temp Pulse Pulse Resp BP BP Pulse Ox 08/31/23 09:16 68 08/31/23 09:08 64 94 L 08/31/23 07:49 97.7 F 58 L 17 137/73 95 08/31/23 01:25 97.7 F 75 18 121/67 94 L 08/30/23 20:27 82 08/30/23 20:19 79 08/30/23 20:12 97.5 F L 72 18 162/84 96 08/30/23 18:50 65 18 141/58 98 08/30/23 15:38 60 18 110/60 94 L 08/30/23 15:25 84 08/30/23 15:16 80 08/30/23 12:21 62 18 132/70 94 L Intake and Output 08/30/23 08/31/23 08/31/23 22:59 06:59 14:59 Intake Total 2540 Balance 2540 Intake: Intake, IV Titration 1560 Amount Sodium Chloride 0.9% 1, 1560 000 ml @ 130 mls/hr IV . Q7H42M [facility] Rx#:[id number] Oral 980 Other: # Voids 2 Weight 120.202 kg Results CBC & Chem 7: 08/31/23 05:35 08/31/23 05:35 Labs: Abnormal Lab Results - Last 24 Hours (Table) 08/30/23 08/30/23 08/30/23 Range/Units 12:21 12:21 12:21 RDW 16.4 H (11.5-15.5) % Immature Gran # (0.00-0.04) X 10*3/uL Lymphocytes # 0.5 L (1.0-4.8) k/uL Sodium 136 L (137-145) mmol/L Carbon Dioxide 19 L (22-30) mmol/L Anion Gap (4.00-12.00) mmol/L Glucose 133 H (74-99) mg/dL Plasma Lactic Acid Yeison 2.6 H* (0.7-2.0) mmol/L 08/31/23 12 Range/Units 05:35 05:35 RDW 16.4 H (11.5-15.5) % Immature Gran # 0.07 H (0.00-0.04) X 10*3/uL Lymphocytes # 0.72 L (1.0-4.8) k/uL Sodium (137-145) mmol/L Carbon Dioxide (22-30) mmol/L Anion Gap 12.90 H (4.00-12.00) mmol/L Glucose (74-99) mg/dL Plasma Lactic Acid Yeison (0.7-2.0) mmol/L
[2023-08-31] MEDS ORDERED: methylPREDNISolone SOD SUCCI 40 MG/ML 1 ML VIAL IV SCH (19:00)
[2023-08-31] MEDS: methylPREDNISolone SOD SUCCI 40 MG/ML 1 ML VIAL IV SCH (23:39)
[2023-09-01] MEDS: PANTOPRAZOLE 40 MG TABLET PO SCH ×2 (04:45→07:53)
[2023-09-01] MEDS: SODIUM CHLORIDE 0.9% 1,000 ML IV SCH (06:02)
[2023-09-01] MEDS: lisinopriL 10 MG TAB PO SCH ×2 (07:53→20:50)
[2023-09-01] MEDS: ISOSORBIDE MONONITRATE ER 60 MG TAB.ER.24H PO SCH (07:53)
[2023-09-01] MEDS: ENOXAPARIN 40 MG/0.4 ML SYRINGE SQ SCH (07:53)
[2023-09-01] MEDS: RANOLAZINE 500 MG TAB.ER.12H PO SCH ×2 (07:55→20:50)
[2023-09-01] MEDS: SIMETHICONE 80 MG CHEWABLE PO SCH ×4 (07:55→20:50)
[2023-09-01] MEDS: methylPREDNISolone SOD SUCCI 40 MG/ML 1 ML VIAL IV SCH ×2 (07:56→17:11)
[2023-09-01] MEDS: allopurinoL 300 MG TAB PO SCH (08:08)
[2023-09-01] MEDS: IPRATROPIUM-ALBUTEROL 3 ML NEB INHALATION SCH ×4 (08:22→18:23)
[2023-09-01] MEDS: SYMBICORT 160-4.5 MCG INHALER INHALATION SCH ×2 (08:22→18:23)
[2023-09-01] MEDS ORDERED: LACTATED RINGERS 1,000 ML IV ONE (12:38)
[2023-09-01] MEDS ORDERED: ONDANSETRON 4 MG/2 ML VIAL IVP ONE (12:47)
[2023-09-01] MEDS ORDERED: DEXAMETHASONE SOD PHOSPHATE 4 MG/ML 1 ML VIAL IVP ONE (12:48)
--- NOTE | 2023-09-01 13:00 | P.PN ---
Subjective Progress Note Date: 09/01/23 I am seeing this patient in new consultation today 08/31/2023 after he failed outpatient treatment for presumptive pneumonia. Patient has a 83-year-old white male with past medical history significant for COPD, former tobacco smoker quitting in 1979, prostate cancer treated with radiation and in remission, atrial fibrillation, coronary artery disease, hyperlipidemia, hypertension, obstructive sleep apnea with CPAP. His primary care provider is Dr. Kojo Viveros. Patient states that he was treated outpatient at an urgent care clinic for pneumonia. He took a total of 5 doses of Augmentin, his symptoms progressively worsened, and he presented to the emergency room yesterday afternoon. He's complaining of shortness of breath, productive cough with light green sputum, chest soreness with coughing. Denies any fevers, chills, chest pain. He does complain of significant amount of dyspepsia. Chest CT demonstrates 6.3 cm necrotic spiculated mass in the right lower lung consistent with malignant/neoplasm. Patient denies history of lung cancer. Denies history of TB exposure. Admits recent weight loss in the last year, approximately 35 pounds. Has recently started Mounjaro. CBC on arrival unremarkable. No leukocytosis. BMP on arrival is a sodium 136, potassium 4, chloride 101, serum bicarb 19, BUN 18, creatinine 0.89, glucose 133, lactic acid 2.6 down to 1.7. Normal saline infusing at 130 ML's per hour. Troponin less than 0.012. NT proBNP 1660. Empirically started combination of azithromycin and Rocephin. Afebrile. Currently sitting up in the bedside recliner, on room air, in no acute distress. Vital signs are stable. As mentioned, the patient is a ex- smoker. He is having some cough and congestion which led to some antibiotic treatment on outpatient basis without any benefit. The concern for now is lung cancer. The patient has no hemoptysis. No previous exposure to tuberculosis. No history of any fungal infection. 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 He did admit to lose some weight over the years. Noted the patient also has history of atrial fibrillation. He is on no anticoagulants related to previous episode of GI bleed. The patient however is on Plavix and has a watchman in place. The Plavix was placed on hold in anticipation for a lung biopsy. On today's evaluation of 08/24/2023, the patient is being seen for a follow-up. No new complaints. The patient is currently nothing by mouth. He is off Plavix. The plan is to do a robotic bronchoscopy and biopsy the right lung mass as stated earlier. Remains on broke about it since. Remains on steroids. Labs from today are essentially unchanged. No significant leukocytosis the echoes at 7.9, hemoglobin 14.4, BUN is at 60 with a creatinine of 1.2 and his sodium levels of 140. Pro-calcitonin level is nonelevated. Objective - Vital Signs Vital signs: Vital Signs Temp 97.6 F 09/01/23 08:00 Pulse 76 09/01/23 11:36 Resp 19 09/01/23 08:00 BP 178/95 09/01/23 08:00 Pulse Ox 96 09/01/23 08:00 FiO2 Intake & Output 08/31/23 09/01/23 09/01/23 18:59 06:59 18:59 Intake Total 800 Balance 800 Intake: Oral 800 Other: Voiding Method Toilet # Voids 3 2 - Exam GENERAL EXAM: Alert, 83-year-old white male, comfortable in no apparent distress. HEAD: Normocephalic and atraumatic EYES: Normal reaction of pupils, equal size. NOSE: Clear with pink turbinates. THROAT: No erythema or exudates. NECK: No masses, no JVD. CHEST: No chest wall deformity. LUNGS: Equal air entry with rhonchi heard bilaterally and scattered expiratory wheezes. On room air. No conversational dyspnea or accessory muscle use.. CVS: S1 and S2 normal with no audible murmur, irregular rhythm. No extra heart sounds ABDOMEN: No hepatosplenomegaly, active bowel sounds, no guarding or rigidity. SPINE: No scoliosis or deformity SKIN: No rashes CENTRAL NERVOUS SYSTEM: No focal deficits, tone is normal in all 4 extremities. EXTREMITIES: There is no peripheral edema, clubbing, or cyanosis. Peripheral pulses are intact. - Labs CBC & Chem 7: 08/31/23 05:35 08/31/23 05:35 Labs: Microbiology - Last 24 Hours (Table) 08/30/23 12:15 Blood Culture - Preliminary Blood 08/30/23 12:00 Blood Culture - Preliminary Blood Assessment and Plan Plan: Right lower lung mass, chest CT demonstrates a 6.3 cm necrotic spiculated mass in the right lower lung, consistent with possible malignancy/neoplasm until pro gavin otherwise. Based on my review of the CAT scan, the masses in the superior in the posterior segment of the right lower lobe. Highly suspicious for malignancy with central cavitation, highly suspicious for squamous cell carcinoma. Infection is possible although felt to be less likely. Patient is currently off Plavix. Acute dyspnea, possibly secondary to acute COPD exacerbation and above Paroxysmal atrial fibrillation Hypertension Hyperlipidemia Coronary artery disease, with prior stents History of GI bleed while on Xarelto GERD Obstructive sleep apnea with home CPAP Plan: Continue same treatment We'll plan for a robotic bronchoscopy to be today and the patient is currently nothing by mouth Keep the Plavix on hold Procedure was extrinsically the patient and the patient was agreeable No need for antibiotics at this point in time and the patient has a low pro- calcitonin level Start patient on a combination of bronchodilators, Symbicort inhaler, and IV Solu-Medrol. Currently on room air We'll continue to follow
[2023-09-01] MEDS ORDERED: SUCCINYLCHOLINE CHLORIDE 200 MG/10 ML VIAL IV ONE (14:10)
[2023-09-01] MEDS ORDERED: GLYCOPYRROLATE 0.2 MG/ML 2 ML VIAL ONE (14:10)
[2023-09-01] MEDS ORDERED: fentaNYL (PF) 50 MCG/ML 2 ML AMP ONE (14:10)
[2023-09-01] MEDS ORDERED: PHENYLEPHRINE-0.9% NACL SYG 1,000 MCG/10 ML SYRINGE ONE (14:10)
[2023-09-01] MEDS ORDERED: LIDOCAINE 2% (PF) 20 MG/ML 5 ML VIAL ONE (14:10)
[2023-09-01] MEDS ORDERED: ROCURONIUM 10 MG/ML (5 ML VIAL) IV ONE (14:10)
[2023-09-01] MEDS ORDERED: PROPOFOL 10 MG/ML 20 ML VIAL IV ONE (14:10)
[2023-09-01] MEDS ORDERED: NEOSTIGMINE 1 MG/ML 10 ML VIAL ONE (14:10)
--- NOTE | 2023-09-01 15:27 | P.PCN ---
Date of Procedure: 09/01/23 Description of Procedure: Preoperative Diagnosis: Right lower lobe mass Postoperative Diagnosis: Right lower lobe mass Procedure(s) Performed: Flexible bronchoscopy , bronchioloalveolar lavage of the right lower lobe, the rapeutic airway suctioning and removal of mucous plugs bilaterally. Robotic-assisted bronchoscopy and addition to radial ultrasound evaluation of the right lower lobe mass Robotic-assisted transbronchial needle aspirate, transbronchial biopsies of the right lower lobe mass in addition to a bronchioloalveolar lavage Anesthesia: CHRIS Surgeon: Kirsten Srivastava Estimated Blood Loss (ml): 0 Pathology: other Condition: stable Disposition: same day Operative Findings: A physical exam was performed. Informed consent was obtained from the patient after explaining all the risks (pneumothorax, life threatening bleeding, inf ection and adverse effects due to medications), benefits and alternatives to the procedure which the patient appeared to understand and so stated. The patient was connected to the monitoring devices. General anesthesia was induced and the patient was intubated by anesthesia. A final timeout was performed and the procedure confirmed by the attending staff bronchoscopist. The bronchoscope was inserted and the airway examined. There was copious multivessel secretions and mucous plugs that were aspirated without any major difficulties. The bronchoscope was normal to the right lower lobe and a bronchial lavage of the right lower lobe was done with a total of 40 mL of fluid was infused in approximately 50 mL was suctioned back. Aspirate was nonbloody and was quite cloudy and turbid. The flexible bronchoscope was removed and the robotic bronchoscope was inserted. Registration was completed. I next guided the robotic bronchoscope using the navigation system into the right lower lobe superior segment. Once in proper position, the bronchoscope was frozen. The radial EBUS probe was placed through the bronchoscope and confirmed abnormal u/s images vs normal lung. A needle was placed through the working channel and under fluoroscopic guidance, we sampled the area thought to have the mass twice. We then used a cloud biopsy pattern with ultrasound confirmation for 2 additional passes with the needle. U/S evaluation was then used to reconfirm location. Forceps were next introduced through working channel and extended the appropriate distance and 3 transbronchial biopsies were performed using fluoroscopic guidance. The u/s probe was then reinserted to confirm location. When confirmed this process was repeated for a total of 8-10 transbronchial biopsies. After reassessment with EBUS, a brush was placed through the extendable working channel for 1 pass with fluoroscopic guidance. U/S evaluation was then used to confirm location. 20ml of saline was then instilled into the area of the lesion. The robotic bronchoscope was removed and the airway inspected with a flexible bronchoscope and 10 ml of effluent from the BAL was collected. The aspirate was bloody and ultimately declotted and based on that, the sample was discarded. Flex. bronchoscope was inserted and regular suctioning was done. At the completion of the procedure, no residual secretions or bloody material within the airway. The bronchoscope was removed. The patient was extubated. Endobronchial ultrasound was done with mediastinal lymph node evaluation. We did send mediastinal stations were inspected and there was no evidence of any pathologic recent lymphadenopathy and all of the lymph nodes are less than 5 mm in size. No biopsies were performed. FINDINGS: 1.The airways appeared normal 2 Successful navigation, ultrasonographic identification, and biopsies of right lower lobe mass 3.The the radial ultrasound view was concentric RECOMMENDATIONS: Await pathology and cytology results The referring physician will be alerted to the results when available. The patient was advised to follow up with the referring physician with the biopsy results Patient will be called with results.
--- NOTE | 2023-09-01 16:57 | FL ---
EXAMINATION TYPE: FL bronchoscopy Intraoperative/procedural fluoroscopic services were provided. Tota l fluoroscopy time is 1 minute 16 seconds with a total of 3 submitted images to PACS. Please see the operative/procedural note for further details. DAP: The 4.4 cm 2 Gycm2
--- NOTE | 2023-09-01 21:44 | P.PN ---
Progress Note - Text Progress Note Date: 09/01/23 Chief Complaint: Short of breath Pleasant 83-year-old patient who follows with Dr. Kojo Viveros. I'm rounding for Dr. Kojo Viveros. Patient presents 2 days of increasing shortness of breath cough phlegm that is green in color. Wheezing. Patient has been Augmentin for last 5 days from the walk-in clinic. Symptoms are progressively getting worse decided to come in. Increased tiredness. Oral intake has been fair. 09/01/2023: Patient is found to have cavitating lesion on the right side. Still coughing up sputum. Bronchoscopy was done with Dr. Srivastava. Biopsy was done. Cultures obtained. Active Medications Acetaminophen (Acetaminophen Tab 325 Mg Tab) 650 mg PO Q6HR PRN PRN Reason: Mild Pain or Fever > 100.5 Albuterol/Ipratropium (Ipratropium-Albuterol 3 Ml Neb) 3 ml INHALATION RT-Q4H PRN PRN Reason: shortness of breath Last Admin: 08/30/23 20:19 Dose: 3 ml Albuterol/Ipratropium (Ipratropium-Albuterol 3 Ml Neb) 3 ml INHALATION RT-QID [facility] Last Admin: 09/01/23 18:23 Dose: 3 ml Allopurinol (Allopurinol 300 Mg Tab) 300 mg PO DAILY [facility] Last Admin: 09/01/23 08:08 Dose: 300 mg Alprazolam (Alprazolam 0.25 Mg Tab) 0.25 mg PO Q6HR PRN PRN Reason: Anxiety Budesonide/Formoterol Fumarate (Symbicort 160-4.5 Mcg Inhaler) 2 puff INHALATION RT-BID [facility] Last Admin: 09/01/23 18:23 Dose: 2 puff Calcium Carbonate/Glycine (Calcium Carbonate 500 Mg Chewable) 1,000 mg PO Q4HR PRN PRN Reason: Dyspepsia Colchicine (Colchicine 0.6 Mg Each) 0.6 mg PO DAILY PRN PRN Reason: GOUT Enoxaparin Sodium (Enoxaparin 40 Mg/0.4 Ml Syringe) 40 mg SQ DAILY [facility] Last Admin: 09/01/23 07:53 Dose: Not Given Ceftriaxone Sodium 2 gm/ (Sodium Chloride) 50 mls @ 100 mls/hr IVPB Q24HR [facility]; Protocol Stop: 09/03/23 09:29 Last Admin: 09/01/23 07:54 Dose: 100 mls/hr Sodium Chloride (Saline 0.9%) 1,000 mls @ 10 mls/hr IV .Q24H [facility] Last Admin: 09/01/23 06:02 Dose: Not Given Isosorbide Mononitrate (Isosorbide Mononitrate Er 60 Mg Tab.Er.24h) 60 mg PO DAILY [facility] Last Admin: 09/01/23 07:53 Dose: 60 mg Lactulose (Lactulose 20 Gm/30 Ml Cup) 20 gm PO DAILY PRN PRN Reason: Constipation Lisinopril (Lisinopril 10 Mg Tab) 10 mg PO BID [facility] Last Admin: 09/01/23 20:50 Dose: 10 mg Melatonin (Melatonin 3 Mg Tablet) 3 mg PO HS PRN PRN Reason: Insomnia Methylprednisolone Sodium Succinate (Methylprednisolone Sod Succi 40 Mg/Ml 1 Ml Vial) 40 mg IV Q8H [facility] Last Admin: 09/01/23 17:11 Dose: 40 mg Miscellaneous Information (Pneumonia Protocol Utilized 1 Each Misc) 1 each PO ONCE PRN PRN Reason: Per Protocol Naloxone HCl (Naloxone 0.4 Mg/Ml 1 Ml Vial) 0.2 mg IV Q2M PRN PRN Reason: Opioid Reversal Nitroglycerin (Nitroglycerin Sl Tabs 0.4 Mg Tab) 0.4 mg SUBLINGUAL Q5M PRN PRN Reason: Chest Pain Non-Formulary Medication (Tirzepatide [Mounjaro]) 10 mg SQ TU [facility] Last Admin: 08/30/23 22:50 Dose: Not Given Ondansetron HCl (Ondansetron 4 Mg Tab) 4 mg PO Q6H PRN PRN Reason: Nausea Ondansetron HCl (Ondansetron 4 Mg/2 Ml Vial) 4 mg IVP Q8HR PRN PRN Reason: Nausea And Vomiting Pantoprazole Sodium (Pantoprazole 40 Mg Tablet) 40 mg PO AC-BRKFST [facility] Last Admin: 09/01/23 07:53 Dose: 40 mg Ranolazine (Ranolazine 500 Mg Tab.Er.12h) 500 mg PO BID [facility] Last Admin: 09/01/23 20:50 Dose: 500 mg Simethicone (Simethicone 80 Mg Chewable) 40 mg PO QID [facility] Last Admin: 12/28/23 20:50 Dose: 40 mg Social history: . 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 Smoked for 20 years 1 pack a day stopped in 1979. No alcohol. Physical examination: VITAL SIGNS: 97.4, 76, 17, 152/74, 97% room air GENERAL: In a chair, comfortable EYES: Pupils equal. Conjunctiva normal. HEENT: External appearance of nose and ears normal, oral cavity grossly normal. NECK: JVD not raised; masses not palpable. HEART: First and second heart sounds are normal; no edema. LUNGS: Respiratory rate increased, some scattered crackles decreased breath sounds. ABDOMEN: Soft, nontender, liver spleen not palpable, no masses palpable. PSYCH: Alert and oriented x3; mood and affect normal. MUSCULOSKELETAL:No Clubbing/cyanosis;muscles-grossly intact INVESTIGATIONS, reviewed in the clinical context: Procalcitonin 0.06. Bronchoscopy with Dr. Srivastava on 09/01/2023 08/31/2023: White count 7.9 hemoglobin 14.4 platelets 202 sodium 140 potassium 4.5 creatinine 1.2 Lactic acid 2. 6 repeat 1.7 Procalcitonin 0.06. ProBNP 1660 Troponin I less than 0.012 Urine Legionella antigen negative EKG tracing personally reviewed by me-atrial fibrillation. Chest x-ray film personally reviewed by me-some hyperinflation and right-sided lung mass CT chest with contrast: 6.3 cm necrotic Spickler dated mass in the right lower lung Assessment and plan: -Suspect secondary pneumonia with underlying necrotic mass in the right lung. Suspect gram-negative organism. Slow to respond IV ceftriaxone. -Right lung mass necrotic spiculated. High suspicion for malignancy. Bronchoscopy by Dr. Srivastava on September 01 -COPD exacerbation and a smoker DuoNeb, IV Solu-Medrol -Persistent atrial fibrillation, rate controlled -.CAD with a prior history of stent Plavix. Imdur ER. Ranexa -Essential hypertension Prinivil. -Obstructive sleep apnea uses CPAP at night -Gout Colchicine. Allopurinol -Full code Endoscopy today. Antibiotics to continue. Discussed with patient. Past Medical History Past Medical History: Atrial Fibrillation, Coronary Artery Disease (CAD), GI Bleed, Hyperlipidemia, Hypertension, Pneumonia, Skin Disorder, Sleep Apnea/CPAP/BIPAP Additional Past Medical History / Comment(s): back pain-increased pain with walking,Vertigo, hiatal hernia, gout, eczema, bleeds easily,uses cpap, History of Any Multi-Drug Resistant Organisms: None Reported Past Surgical History: Cholecystectomy, Heart Catheterization With Stent, Orthopedic Surgery Additional Past Surgical History / Comment(s): Exploratory Abdominal Surgery; ORIF titanium/screws in LT Ankle. REPAIR BICEP TENDON LT ARM. RT CATARACT. STENTS X2. cyst removed from under chin, Past Anesthesia/Blood Transfusion Reactions: Previous Problems w/ Anesthesia Additional Past Anesthesia/Blood Transfusion Reaction / Comment(s): DEVELOPED AFIB AFTER CATARACT SURG 2013 Date of Last Stent Placement:: 2002 Past Psychological History: No Psychological Hx Reported Smoking Status: Never smoker Past Alcohol Use History: None Reported Additional Past Alcohol Use History / Comment(s): SMOKED 20 YRS, 1 PPD, QUIT 1979 Past Drug Use History: None Reported
[2023-09-02] MEDS: IPRATROPIUM-ALBUTEROL 3 ML NEB INHALATION PRN (02:04)
[2023-09-02] MEDS: ISOSORBIDE MONONITRATE ER 60 MG TAB.ER.24H PO SCH (08:33)
[2023-09-02] MEDS: RANOLAZINE 500 MG TAB.ER.12H PO SCH (08:33)
[2023-09-02] MEDS: allopurinoL 300 MG TAB PO SCH (08:33)
[2023-09-02] MEDS: lisinopriL 10 MG TAB PO SCH (08:33)
[2023-09-02] MEDS: methylPREDNISolone SOD SUCCI 40 MG/ML 1 ML VIAL IV SCH ×3 (08:34→16:45)
[2023-09-02] MEDS: ENOXAPARIN 40 MG/0.4 ML SYRINGE SQ SCH (08:34)
[2023-09-02] MEDS: SIMETHICONE 80 MG CHEWABLE PO SCH ×2 (08:34→12:06)
[2023-09-02] MEDS: SODIUM CHLORIDE 0.9% 1,000 ML IV SCH (08:35)
[2023-09-02] MEDS: IPRATROPIUM-ALBUTEROL 3 ML NEB INHALATION SCH ×3 (08:42→15:47)
[2023-09-02] MEDS: SYMBICORT 160-4.5 MCG INHALER INHALATION SCH (08:42)
[2023-09-02] MEDS ORDERED: CLOPIDOGREL 75 MG TAB PO SCH (14:45)
--- NOTE | 2023-09-02 16:52 | P.PN ---
Subjective Progress Note Date: 09/02/23 I am seeing this patient in new consultation today 08/31/2023 after he failed outpatient treatment for presumptive pneumonia. Patient has a 83-year-old white male with past medical history significant for COPD, former tobacco smoker quitting in 1979, prostate cancer treated with radiation and in remission, atrial fibrillation, coronary artery disease, hyperlipidemia, hypertension, obstructive sleep apnea with CPAP. His primary care provider is Dr. Kojo Viveros. Patient states that he was treated outpatient at an urgent care clinic for pneumonia. He took a total of 5 doses of Augmentin, his symptoms progressively worsened, and he presented to the emergency room yesterday afternoon. He's complaining of shortness of breath, productive cough with light green sputum, chest soreness with coughing. Denies any fevers, chills, chest pain. He does complain of significant amount of dyspepsia. Chest CT demonstrates 6.3 cm necrotic spiculated mass in the right lower lung consistent with malignant/neoplasm. Patient denies history of lung cancer. Denies history of TB exposure. Admits recent weight loss in the last year, approximately 35 pounds. Has recently started Mounjaro. CBC on arrival unremarkable. No leukocytosis. BMP on arrival is a sodium 136, potassium 4, chloride 101, serum bicarb 19, BUN 18, creatinine 0.89, glucose 133, lactic acid 2.6 down to 1.7. Normal saline infusing at 130 ML's per hour. Troponin less than 0.012. NT proBNP 1660. Empirically started combination of azithromycin and Rocephin. Afebrile. Currently sitting up in the bedside recliner, on room air, in no acute distress. Vital signs are stable. As mentioned, the patient is a ex- smoker. He is having some cough and congestion which led to some antibiotic treatment on outpatient basis without any benefit. The concern for now is lung cancer. The patient has no hemoptysis. No previous exposure to tuberculosis. No history of any fungal infection. 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 He did admit to lose some weight over the years. Noted the patient also has history of atrial fibrillation. He is on no anticoagulants related to previous episode of GI bleed. The patient however is on Plavix and has a watchman in place. The Plavix was placed on hold in anticipation for a lung biopsy. On today's evaluation of 08/24/2023, the patient is being seen for a follow-up. No new complaints. The patient is currently nothing by mouth. He is off Plavix. The plan is to do a robotic bronchoscopy and biopsy the right lung mass as stated earlier. Remains on broke about it since. Remains on steroids. Labs from today are essentially unchanged. No significant leukocytosis the echoes at 7.9, hemoglobin 14.4, BUN is at 60 with a creatinine of 1.2 and his sodium levels of 140. Pro-calcitonin level is nonelevated. On 09/02/2023, no new complaints and the patient is post bronchoscopy. Cough and congestion is improved. No fever. No chills. No hemoptysis. No c omplications related to the biopsy. The results of the lung biopsy is still pending for now. The patient will specific complaints. Objective - Vital Signs Vital signs: Vital Signs Temp 97.7 F 09/02/23 08:00 Pulse 64 09/02/23 11:51 Resp 19 09/02/23 08:00 BP 147/75 09/02/23 08:00 Pulse Ox 95 09/02/23 08:00 FiO2 Intake & Output 09/01/23 09/02/23 09/02/23 18:59 06:59 18:59 Intake Total 1100 Balance 1100 Intake: IV 1000 Oral 100 Other: Voiding Method Toilet # Voids 3 2 - Exam GENERAL EXAM: Alert, 83-year-old white male, comfortable in no apparent distress. HEAD: Normocephalic and atraumatic EYES: Normal reaction of pupils, equal size. NOSE: Clear with pink turbinates. THROAT: No erythema or exudates. NECK: No masses, no JVD. CHEST: No chest wall deformity. LUNGS: Equal air entry with rhonchi heard bilaterally and scattered expiratory wheezes. On room air. No conversational dyspnea or accessory muscle use.. CVS: S1 and S2 normal with no audible murmur, irregular rhythm. No extra heart sounds ABDOMEN: No hepatosplenomegaly, active bowel sounds, no guarding or rigidity. SPINE: No scoliosis or deformity SKIN: No rashes CENTRAL NERVOUS SYSTEM: No focal deficits, tone is normal in all 4 extremities. EXTREMITIES: There is no peripheral edema, clubbing, or cyanosis. Peripheral pulses are intact. - Labs CBC & Chem 7: 08/31/23 05:35 08/31/23 05:35 Labs: Microbiology - Last 24 Hours (Table) 08/30/23 12:15 Blood Culture - Preliminary Blood 08/30/23 12:00 Blood Culture - Preliminary Blood Assessment and Plan Plan: Right lower lung mass, chest CT demonstrates a 6.3 cm necrotic spiculated mass in the right lower lung, consistent with possible malignancy/neoplasm until pro gavin otherwise. Based on my review of the CAT scan, the masses in the superior in the posterior segment of the right lower lobe. Highly suspicious for malignancy with central cavitation, highly suspicious for squamous cell carcinoma. Infection is possible although felt to be less likely. Patient is post bronchoscopy and biopsy. Acute dyspnea, possibly secondary to acute COPD exacerbation and above Paroxysmal atrial fibrillation Hypertension Hyperlipidemia Coronary artery disease, with prior stents History of GI bleed while on Xarelto GERD Obstructive sleep apnea with home CPAP Plan: Bronchoscopy was completed and the biopsy of the right lower lobe mass was done. Plavix can be restarted and the patient can be discharged home. A bronchial lavage was done and that is also still pending for now. Antibiotics will be added if there is any significant infection. When asked the patient to continue Symbicort and his nebulizer at home. We'll see him back in the office to dis cuss the results of the biopsy. The patient can be discharged home today. We'll give a prednisone burst taper at time of discharge.
[2023-09-02 17:06] VITALS: BP 149/69; PULSE 75; RESP 18; TEMP 97.6
--- NOTE | 2023-09-02 21:18 | P.DS ---
Providers Date of admission: 08/30/23 14:59 Expected date of discharge: 09/02/23 Attending physician: Amanuel Mercedes Consults: 08/30/23 14:57 Consult Physician Urgent Consulting Provider: Kirsten Srivastava Consult Reason/Comments: CAP failing o/p treatment, lung mass Do you want consulting provider notified?: Yes Primary care physician: Kojo Viveros [facility] Course: Chief Complaint: Short of breath Pleasant 83-year-old patient who follows with Dr. Kojo Viveros. I'm rounding for Dr. Kojo Viveros. Patient presents 2 days of increasing shortness of breath cough phlegm that is green in color. Wheezing. Patient has been Augmentin for last 5 days from the walk-in clinic. Symptoms are progressively getting worse decided to come in. Increased tiredness. Oral intake has been fair. 09/01/2023: Patient is found to have cavitating lesion on the right side. Still coughing up sputum. Bronchoscopy was done with Dr. Srivastava. Biopsy was done. Cultures obtained. 09/02/2023: Decreased sputum output. Discussed with Dr. Srivastava. No further antibiotics. Discharge home. Follow-up in the office. Patient overall feeling better. Social history: . 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 Smoked for 20 years 1 pack a day stopped in 1979. No alcohol. Physical examination: VITAL SIGNS: 87.6, 75, 18, 149/69, 95% room air GENERAL: In a chair, comfortable EYES: Pupils equal. Conjunctiva normal. HEENT: External appearance of nose and ears normal, oral cavity grossly normal. NECK: JVD not raised; masses not palpable. HEART: First and second heart sounds are normal; no edema. LUNGS: Respiratory rate increased, some scattered crackles decreased breath sounds. ABDOMEN: Soft, nontender, liver spleen not palpable, no masses palpable. PSYCH: Alert and oriented x3; mood and affect normal. MUSCULOSKELETAL:No Clubbing/cyanosis;muscles-grossly intact INVESTIGATIONS, reviewed in the clinical context: Procalcitonin 0.06. Bronchoscopy with Dr. Srivastava on 09/01/2023 08/31/2023: White count 7.9 hemoglobin 14.4 platelets 202 sodium 140 potassium 4.5 creatinine 1.2 Lactic acid 2. 6 repeat 1.7 Procalcitonin 0.06. ProBNP 1660 Troponin I less than 0.012 Urine Legionella antigen negative EKG tracing personally reviewed by me-atrial fibrillation. Chest x-ray film personally reviewed by me-some hyperinflation and right-sided lung mass CT chest with contrast: 6.3 cm necrotic Spickler dated mass in the right lower lung Assessment and plan: -Suspect secondary pneumonia with underlying necrotic mass in the right lung. Suspect gram-negative organism. IV ceftriaxone. Given. No further antibiotics per pulmonary -Right lung mass necrotic spiculated. High suspicion for malignancy. Bronchoscopy by Dr. Srivastava on September 01 Visit follow up outpatient -COPD exacerbation in a previous smoker DuoNeb, IV Solu-Medrol l Prednisone taper on discharge -Persistent atrial fibrillation, rate controlled -.CAD with a prior history of stent Plavix. Imdur ER. Ranexa -Essential hypertension Prinivil. -Obstructive sleep apnea uses CPAP at night -Gout Colchicine. Allopurinol -Full code Disposition: Home Past Medical History Past Medical History: Atrial Fibrillation, Coronary Artery Disease (CAD), GI Bleed, Hyperlipidemia, Hypertension, Pneumonia, Skin Disorder, Sleep Apnea/CPAP/BIPAP Additional Past Medical History / Comment(s): back pain-increased pain with walking,Vertigo, hiatal hernia, gout, eczema, bleeds easily,uses cpap, History of Any Multi-Drug Resistant Organisms: None Reported Past Surgical History: Cholecystectomy, Heart Catheterization With Stent, Orthopedic Surgery Additional Past Surgical History / Comment(s): Exploratory Abdominal Surgery; ORIF titanium/screws in LT Ankle. REPAIR BICEP TENDON LT ARM. RT CATARACT. STENTS X2. cyst removed from under chin, Past Anesthesia/Blood Transfusion Reactions: Previous Problems w/ Anesthesia Additional Past Anesthesia/Blood Transfusion Reaction / Comment(s): DEVELOPED AFIB AFTER CATARACT SURG 2013 Date of Last Stent Placement:: 2002 Past Psychological History: No Psychological Hx Reported Smoking Status: Never smoker Past Alcohol Use History: None Reported Additional Past Alcohol Use History / Comment(s): SMOKED 20 YRS, 1 PPD, QUIT 1979 Past Drug Use History: None Reported Patient Condition at Discharge: Stable Plan - Discharge Summary New Discharge Prescriptions: New predniSONE 10 mg PO DAILY #30 tab Budesonide-Formot 160-4.5 Mcg [Symbicort 160-4.5 Mcg Inhaler] 2 puff INHALATION RT-BID #1 each Continue lisinopriL [Prinivil] 10 mg PO BID Ranolazine [Ranexa] 500 mg PO BID Nitroglycerin Sl Tabs [Nitrostat] 0.4 mg SUBLINGUAL Q5M PRN PRN Reason: Chest Pain Isosorbide Mononitrate ER [Imdur] 60 mg PO DAILY Clopidogrel Bisulfate [Plavix] 75 mg PO DAILY Ondansetron [Zofran] 4 mg PO Q6H PRN PRN Reason: Nausea Tirzepatide [Mounjaro] 10 mg SQ TU Omeprazole 40 mg PO DAILY allopurinoL [Zyloprim] 300 mg PO DAILY Albuterol Nebulized [Ventolin Nebulized (Accuneb)] 1.25 mg INHALATION RT-Q6H PRN PRN Reason: Shortness Of Breath Colchicine 0.6 mg PO DAILY PRN PRN Reason: GOUT Mv-Min/Folic/K1/Lycopen/Lutein [Centrum Silver Men Tablet] 1 tab PO DAILY Discontinued Amoxic-Pot Clav 875-125Mg [Augmentin 875-125] 1 tab PO BID Discharge Medication List lisinopriL [Prinivil] 10 mg PO BID 07/15/14 [History] Clopidogrel Bisulfate [Plavix] 75 mg PO DAILY 09/03/17 [History] Isosorbide Mononitrate ER [Imdur] 60 mg PO DAILY 09/03/17 [History] Nitroglycerin Sl Tabs [Nitrostat] 0.4 mg SUBLINGUAL Q5M PRN 09/03/17 [History] Ranolazine [Ranexa] 500 mg PO BID 09/03/17 [History] Albuterol Nebulized [Ventolin Nebulized (Accuneb)] 1.25 mg INHALATION RT-Q6H PRN 08/30/23 [History] Colchicine 0.6 mg PO DAILY PRN 08/30/23 [History] Mv-Min/Folic/K1/Lycopen/Lutein [Centrum Silver Men Tablet] 1 tab PO DAILY 08/30/23 [History] Omeprazole 40 mg PO DAILY 08/30/23 [History] Ondansetron [Zofran] 4 mg PO Q6H PRN 08/30/23 [History] Tirzepatide [Mounjaro] 10 mg SQ TU 08/30/23 [History] allopurinoL [Zyloprim] 300 mg PO DAILY 08/30/23 [History] Budesonide-Formot 160-4.5 Mcg [Symbicort 160-4.5 Mcg Inhaler] 2 puff INHALATION RT-BID #1 each 09/02/23 [Rx] predniSONE 10 mg PO DAILY #30 tab 09/02/23 [Rx] Follow up Appointment(s)/Referral(s): Kojo Viveros MD [Primary Care Provider] - 1-2 days (office not answering. Please call to schedule appointment ) Kirsten Srivastava MD [STAFF PHYSICIAN] - 09/14/23 8:30 am Patient Instructions/Handouts: Community Acquired Pneumonia (DC) Discharge Disposition: HOME SELF-CARE
--- NOTE | 2023-09-06 20:41 | CDI ---
Documentation Clarification Form Date: 09/06/2023 08:28:26 PM From: Veronika Barfield Phone: Admit Date: 08/30/2023 02:59:00 PM Patient Name: Den Bull Visit Number: [id number] Discharge Date: 09/02/2023 04:34:00 PM ATTENTION: The Clinical Documentation Specialists (CDI) and [facility] Coding Staff appreciate your assistance in clarifying documentation. Please respond to the clarification below the line at the bottom and electronically sign. The CDI & [facility] Coding staff will review the response and follow-up if needed. Please note: Queries are made part of the Legal Health Record. If you have any questions, please contact the author of this message via ITS. Dr. 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 Coding guidelines do not allow coding professionals to code based on pathology results; therefore, clarification is requested. History/risk factors: 83yo M, AECOPD, bacterial PNA, PAF, HTN, HLD, CAD, GERD, [place], Hx Cx s/p radiation Clinical Indicators: Right lowerlung mass, chestCTdemonstrates a 6.3 cmnecroticspiculatedmass in the right lower lung, consistent withpossiblemalignancy/neoplasm Treatment: Flexible bronchoscopy, BALof the RLL, therapeuticairway suctioningandremovalofmucous plugsbilaterally. Robotic- assistedbronchoscopyand addition to radialultrasoundevaluationof the RLL mass. Robotic-assistedtransbronchial needleaspirate,transbronchial biopsiesof the RLL massin addition to a bronchioloalveolarlavage Please clarify if you agree with the pathology report diagnosis of malignant neoplasm of lower lobe, right bronchus or lung: [ ] Yes [ ] No [ ] Other (please specify) LUNG [ ] Unable to determine (Template Last Revised: November 2020) MTDD
== END 2023-09-02 16:34 | disposition home or self-care (01) | DRG 166 ==
LOC: EC 09:00 → 4SSUR 14:59
PROVIDERS: ADMIT Hospitalist; ATTEND Hospitalist
PROC: BB4CZZZ Ultrasonography of Mediastinum (ICD-10-PCS; 2023-09-01)
PROC: 0WCQ8ZZ Extirpation of Matter from Respiratory Tract, Via Natural or Artificial Opening Endoscopic (ICD-10-PCS; principal; 2023-09-01 07:30)
PROC: 0B9F8ZX Drainage of Right Lower Lung Lobe, Via Natural or Artificial Opening Endoscopic, Diagnostic (ICD-10-PCS; 2023-09-01 07:30)
PROC: 0B9F8ZX Drainage of Right Lower Lung Lobe, Via Natural or Artificial Opening Endoscopic, Diagnostic (ICD-10-PCS; 2023-09-01 07:30)
PROC: 8E0 Other Procedures, Physiological Systems and Anatomical Regions, Other Procedures (ICD-10-PCS; 2023-09-01 07:30)
DX: C34.31 Malignant neoplasm of lower lobe, right bronchus or lung (principal); J15.69 Pneumonia due to other Gram-negative bacteria; I48.19 Other persistent atrial fibrillation; J44.0 Chronic obstructive pulmonary disease with (acute) lower respiratory infection; J44.1 Chronic obstructive pulmonary disease with (acute) exacerbation; I10 Essential (primary) hypertension; E78.5 Hyperlipidemia, unspecified; G47.30 Sleep apnea, unspecified; I25.10 Atherosclerotic heart disease of native coronary artery without angina pectoris; K21.9 Gastro-esophageal reflux disease without esophagitis; G47.33 Obstructive sleep apnea (adult) (pediatric); M10.9 Gout, unspecified; J98.4 Other disorders of lung; Z11.52 Encounter for screening for COVID-19; Z79.51 Long term (current) use of inhaled steroids; Z79.02 Long term (current) use of antithrombotics/antiplatelets; Z85.46 Personal history of malignant neoplasm of prostate; Z95.5 Presence of coronary angioplasty implant and graft; Z87.891 Personal history of nicotine dependence; Z92.3 Personal history of irradiation; Z87.19 Personal history of other diseases of the digestive system; Z79.899 Other long term (current) drug therapy; Z88.8 Allergy status to other drugs, medicaments and biological substances
CPT/HCPCS: 31624; 31628; 31629; 36415; 71046; 71260; 80048; 80053; 83605; 83880; 84145; 84484; 85025; 85610; 85730; 87040; 87070; 87102; 87116; 87205; 87206; 87449; 87496; 87498; 87502; 87529; 87634; 87635; 87798; 88108; 88305; 88341; 88342; 93005; 94640; 94760; 96365; 96366; 99285

== ENCOUNTER → 2023-09-08 | Outpatient (CLI) | payer MEDICARE ==
--- NOTE | 2023-09-11 21:05 | PE ---
EXAMINATION TYPE: PET CT fusion skull to thigh DATE OF EXAM: 09/08/2023 CLINICAL INDICATION:Male, 83 years old with history of Lung mass; TECHNIQUE: Following the intravenous administration of 9.58 mCi of F-18 FDG, whole body images are performed from the skull base to the midthigh. Images are reviewed on the computer in the coronal, a xial, and sagittal planes. Reconstructed rotating images are created on independent workstation and reviewed on the computer. A non-contrast CT is performed in conjunction with the PET scan. Glucose level 108 mg/dL CT DLP: 1012 mGycm, Automated exposure control for dose reduction was used. COMPARISON: CT 11/30/2019, 08/30/2023, PET/CT None, FINDINGS: Mediastinal SUV mean is 2.7. Hepatic parenchyma SUV mean is 3.6. SKULL BASE AND NECK: * Abnormal uptake within the left puller machine space max SUV 22.0. No mass appreciated on CT imaging. This could be due to similar density of the mass compared to muscles. CHEST, MEDIASTINUM, AND HILAR REGION: 1. Right lower lobe 6.1 x 5.0 cm cavitating mass max SUV 28.8. 2. No lymphadenopathy, no abnormal FDG activity within lymph nodes at this time. ABDOMEN AND PELVIS: No suspicious radiotracer activity. MUSCULOSKELETAL STRUCTURES: No suspicious radiotracer activity. Please see skull base/neck for findin gs within the left puller machine space. OTHER CT: Right aphakia. Atherosclerosis of the carotid vasculature including the carotid bifurcation s the intracranial arteries and coronary arteries along with others. The bladder is distended. Prosta tomegaly. Bilateral fat-containing inguinal hernias. The gallbladder surgically absent. Heart is enla rged for size. Atrial appendage occlusion device present. Mild gynecomastia changes bilaterally. IMPRESSION: 1. Right lower lobe pulmonary mass with cavitation with max SUV compatible with malignancy. 2. Indeterminate left masseter space FDG activity suspicious for malignancy. Consider MRI face with IV contrast.
== END | disposition home or self-care (01) ==
LOC: RADPETMAIN 11:15
PROVIDERS: ATTEND Family Medicine
DX: R91.8 Other nonspecific abnormal finding of lung field (principal)
CPT/HCPCS: 78815; A9552

== ENCOUNTER 2023-09-17 22:14 | Observation (INO) | payer MEDICARE ==
[2023-09-17] MEDS ORDERED: IPRATROPIUM-ALBUTEROL 3 ML NEB INHALATION STA (23:11)
--- NOTE | 2023-09-17 23:38 | XR ---
EXAMINATION TYPE: XR chest 2V DATE OF EXAM: 09/17/2023 COMPARISON: Prior chest x-ray August 31, 2023. Chest CT August 30, 2023 HISTORY: Difficulty in breathing. TECHNIQUE: Frontal and lateral views of the chest are obtained. FINDINGS: Persistent posterior right mid to lower lung mass. There is no suspicious new focal air s pace opacity, pleural effusion, or pneumothorax seen. The cardiac silhouette size is stable and with in normal limits. The osseous structures are intact. IMPRESSION: Suspicious right lung mass worrisome for neoplasm redemonstrated. No new suspicious acut e pulmonary process identified.
[2023-09-17 23:48] LABS: Anisocytosis Slight; Basophils % (A) 0 %; Eosinophils % (A) 1 %; HCT 41.9 % (39.0-53.0); HGB 14.2 gm/dL (13.0-17.5); Lymphocytes # (A) 0.4 k/uL (1.0-4.8); Lymphocytes % (A) 8 %; MCH 30.7 pg (25.0-35.0); MCHC 33.9 g/dL (31.0-37.0); MCV 90.7 fL (80.0-100.0); Monocytes # (A) 0.3 k/uL (0-1.0); Monocytes % (A) 5 %; Neutrophils % (A) 85 %; Platelet Count 159 k/uL (150-450); RBC 4.62 m/uL (4.30-5.90); RDW 16.5 % (11.5-15.5); WBC 5.8 k/uL (3.8-10.6)
[2023-09-17 23:56] LABS: ALT 14 U/L (4-49); AST 17 U/L (17-59); African American GFR (CKD) 77 (>60 ml/min/1.73 sqM); Albumin 3.6 g/dL (3.5-5.0); Alkaline Phosphatase 55 U/L (38-126); Anion Gap 12 mmol/L; Blood Urea Nitrogen 18 mg/dL (9-20); Calcium 9.1 mg/dL (8.4-10.2); Carbon Dioxide 20 mmol/L (22-30); Chloride 104 mmol/L (98-107); Glucose 109 mg/dL (74-99); Magnesium 1.6 mg/dL (1.6-2.3); Non-African American GFR(CKD) 66 (>60 ml/min/1.73 sqM); Potassium 4.1 mmol/L (3.5-5.1); Sodium 136 mmol/L (137-145); Total Bilirubin 0.9 mg/dL (0.2-1.3); Total Protein 5.8 g/dL (6.3-8.2)
[2023-09-18] LABS: INR 1.1 (<1.2); Partial Thromboplastin Time 25.7 sec (22.0-30.0); Prothrombin Time 11.6 sec (10.0-12.5)
[2023-09-18] MEDS ORDERED: methylPREDNISolone SOD SUCCI 40 MG/ML 1 ML VIAL IV STA (01:09)
[2023-09-18] MEDS ORDERED: NALOXONE 0.4 MG/ML 1 ML VIAL IV PRN (01:11)
[2023-09-18] MEDS ORDERED: ALBUTEROL NEBULIZED 1.25 MG/3 ML INHALATION PRN (01:13)
--- NOTE | 2023-09-18 01:14 | ED ---
General Adult HPI - General Chief complaint: Shortness of Breath Stated complaint: Cough up Blood Time Seen by Provider: 09/17/23 22:53 Source: patient, EMS, RN notes reviewed, old records reviewed Mode of arrival: EMS Limitations: no limitations - History of Present Illness Initial comments: Patient is a 83-year-old male with past medical history remarkable for atrial fibrillation, COPD, hypertension, lung cancer who presents with the department with shortness of breath and coughing up white sputum for the last multiple weeks. They did a biopsy on his mass a few weeks ago and has been having blood- tinged sputum over that time. Is complaining of increased coughing as well as some wheezing at home. Presents for further evaluation of this time. Denies chest pain, abdominal pain, nausea, vomiting. Is not normally on oxygen. Denies any known sick contacts. Presents for further evaluation. Symptoms have been somewhat chronic since the procedure. He is concerned he may be coughing more.Patient is not on blood thinners other than Plavix. - Related Data Home Medications Medication Instructions Recorded Confirmed lisinopriL [Prinivil] 10 mg PO BID 07/15/14 08/30/23 Clopidogrel Bisulfate [Plavix] 75 mg PO DAILY 09/03/17 08/30/23 Isosorbide Mononitrate ER [Imdur] 60 mg PO DAILY 09/03/17 08/30/23 Nitroglycerin Sl Tabs [Nitrostat] 0.4 mg SUBLINGUAL Q5M PRN 09/03/17 08/30/23 Ranolazine [Ranexa] 500 mg PO BID 09/03/17 08/30/23 Albuterol Nebulized [Ventolin 1.25 mg INHALATION RT-Q6H PRN 08/30/23 08/30/23 Nebulized (Accuneb)] Colchicine 0.6 mg PO DAILY PRN 08/30/23 08/30/23 Mv-Min/Folic/K1/Lycopen/Lutein 1 tab PO DAILY 08/30/23 08/30/23 [Centrum Silver Men Tablet] Omeprazole 40 mg PO DAILY 08/30/23 08/30/23 Ondansetron [Zofran] 4 mg PO Q6H PRN 08/30/23 08/30/23 Tirzepatide [Mounjaro] 10 mg SQ TU 08/30/23 08/30/23 allopurinoL [Zyloprim] 300 mg PO DAILY 08/30/23 08/30/23 Previous Rx's Medication Instructions Recorded Budesonide-Formot 160-4.5 Mcg 2 puff INHALATION RT-BID #1 each 09/02/23 [Symbicort 160-4.5 Mcg Inhaler] predniSONE 10 mg PO DAILY #30 tab 09/02/23 Allergies Allergy/AdvReac Type Severity Reaction Status Date / Time cortisone [Cortisone] Allergy Swelling Verified 08/30/23 13:05 and itching Review of Systems ROS Statement: Those systems with pertinent positive or pertinent negative responses have been documented in the HPI. Review of Systems: CONST: Denies fever EYES: Denies blurry vision ENT: Denies nasal congestion C/V: Denies Chest pain RESP: Endorses cough GI: Denies abdominal pain : Denies dysuria SKIN: Denies rash. MSK: Denies joint pain. NEURO: Denies headache ROS Other: All systems not noted in ROS Statement are negative. Past Medical History Past Medical History: Atrial Fibrillation, Coronary Artery Disease (CAD), GI Bleed, Hyperlipidemia, Hypertension, Pneumonia, Skin Disorder, Sleep Apnea/CPAP/BIPAP Additional Past Medical History / Comment(s): back pain-increased pain with walking,Vertigo, hiatal hernia, gout, eczema, bleeds easily,uses cpap, mass on lung History of Any Multi-Drug Resistant Organisms: None Reported Past Surgical History: Cholecystectomy, Heart Catheterization With Stent, Orthopedic Surgery Additional Past Surgical History / Comment(s): Exploratory Abdominal Surgery; ORIF titanium/screws in LT Ankle. REPAIR BICEP TENDON LT ARM. RT CATARACT. STENTS X2. cyst removed from under chin, Past Anesthesia/Blood Transfusion Reactions: Previous Problems w/ Anesthesia Additional Past Anesthesia/Blood Transfusion Reaction / Comment(s): DEVELOPED AFIB AFTER CATARACT SURG 2013 Date of Last Stent Placement:: 2002 Past Psychological History: No Psychological Hx Reported Smoking Status: Never smoker Past Alcohol Use History: None Reported Past Drug Use History: None Reported - Past Family History Mother Family Medical History: Myocardial Infarction (NE) Father Family Medical History: Myocardial Infarction ([place]) General Exam - General Exam Comments Initial Comments: General: Appears in no acute distress. HEAD: Normal with no signs of head trauma. EYES: PERRLA, EOMI, conjunctiva normal, no discharge. ENT: Hearing grossly intact, normal oropharynx. RESPIRATORY: Bilateral end expiratory wheezing. Oxygenation is low 90s on room air. Improved on nasal cannula oxygen. No significant increased work of breathing. C/V: Regular rate and rhythm. S1 and S2 auscultated, no edema, peripheral pulses 2+ and intact throughout ABD: Abd is soft, nontender, nondistended EXT: Normal range of motion, no obvious deformity SKIN: No rashes or lesions observed on exposed skin. NEURO: Alert and oriented x 4. Limitations: no limitations Course Vital Signs 09/17/23 09/17/23 09/18/23 22:23 22:26 00:21 Temperature 97.5 F L Pulse Rate 90 76 Respiratory 16 24 Rate Blood Pressure 140/66 O2 Sat by Pulse 96 Oximetry 09/18/23 00:30 Temperature Pulse Rate 79 Respiratory Rate Blood Pressure O2 Sat by Pulse Oximetry Medical Decision Making - Medical Decision Making Was pt. sent in by a medical professional or institution (, PA, RESOURCE TECHNICIAN, urgent care, hospital, or intermediate...) When possible be specific @ -No Did you speak to anyone other than the patient for history (EMS, parent, family, police, friend...)? What history was obtained from this source @ -No Did you review nursing and triage notes (agree or disagree)? Why? @ -I reviewed and agree with nursing and triage notes Were old charts reviewed (outside hosp., previous admission, EMS record, old EKG, old radiological studies, urgent care reports/EKG's, intermediate records)? Report findings @ -Old charts are reviewed Differential Diagnosis (chest pain, altered mental status, abdominal pain women, abdominal pain men, vaginal bleeding, weakness, fever, dyspnea, syncope, headache, dizziness, GI bleed, back pain, seizure, CVA, palpatations, mental health, musculoskeletal)? @ -Differential Dyspnea: Coronary syndrome, arrhythmia, tamponade, asthma, COPD, pulmonary embolism, pneumonia, pneumothorax, pulmonary effusion, anaphylaxis, diabetic ketoacidosis, flailed chest, pulmonary contusion, diaphragmatic rupture, anemia, neuromuscular, this is not meant to be an all-inclusive list. EKG interpreted by me (3pts min.). @ -As above X-rays interpreted by me (1pt min.). @ -Chest x-ray redemonstrates patient's known lung mass CT interpreted by me (1pt min.). @ -None done U/S interpreted by me (1pt. min.). @ -None done What testing was considered but not performed or refused? (CT, X-rays, U/S, labs)? Why? @ -None What meds were considered but not given or refused? Why? @ -None Did you discuss the management of the patient with other professionals (professionals i.e. DrMisti, PA, RESOURCE TECHNICIAN, lab, RT, psych nurse, social worker school, scrap iron loader, teacher, senior administrative services officer, case assistant)? Give summary @ -Discussed case with Dr. Viveros who accepted the patient. Was smoking cessation discussed for >3mins.? @ -No Was critical care preformed (if so, how long)? @ -No Were there social determinants of health that impacted care today? How? (Homelessness, low income, unemployed, alcoholism, drug addiction, transportation, low edu. Level, literacy, decrease access to med. care, mcc, rehab)? @ -No Was there de-escalation of care discussed even if they declined (Discuss DNR or withdrawal of care, Hospice)? DNR status @ -No What co-morbidities impacted this encounter? (DM, HTN, Smoking, COPD, CAD, Cancer, CVA, ARF, Chemo, Hep., AIDS, mental health diagnosis, sleep apnea, morbid obesity)? @ -None Was patient admitted / discharged? Hospital course, mention meds given and route, prescriptions, significant lab abnormalities, going to OR and other pertinent info. @ -Patient presents with chronic symptoms for the last few weeks after biopsy of lung mass. Also seems to have a mild COPD exacerbation. We will obtain basic labs. He is on Plavix only. He is in agreement this plan. Vital signs within acceptable limits other than mild hypoxia which is improved with nasal cannula oxygen. He'll be sent directly to with IV steroids as well as a DuoNeb treatment. Chest x-ray shows no acute findings chronic mass seen.. EKG unremarkable. Labs also unremarkable. Patient is improved after breathing treatment however I did offer observation admission considering his history and he was in agreement with plan. We will continue to treat his mild COPD exacerbation with steroids and breathing treatments. I spoke with the admitting physician, Dr. Viveros who accepted the admission. No concern for PE at this time as his blood-streaked sputum began following his biopsy and is unchanged at this time. Has been ongoing for weeks since the biopsy. Very obvious onset. Undiagnosed new problem with uncertain prognosis? @ -No Drug Therapy requiring intensive monitoring for toxicity (Heparin, Nitro, Insulin, Cardizem)? @ -No Were any procedures done? @ -No Diagnosis/symptom? @ -COPD exacerbation, lung mass Acute, or Chronic, or Acute on Chronic? @ -Acute on chronic Uncomplicated (without systemic symptoms) or Complicated (systemic symptoms)? @ -Complicated Side effects of treatment? @ -No Exacerbation, Progression, or Severe Exacerbation? @ -Exacerbation Poses a threat to life or bodily function? How? (Chest pain, [place], [place], pneumonia, PE, COPD, DKA, ARF, appy, cholecystitis, CVA, Diverticulitis, Homicidal, Suicidal, threat to staff... and all critical care pts) @ -Yes - Lab Data Result diagrams: 09/17/23 23:30 09/17/23 23:30 Lab Results 09/17/23 09/17/23 09/17/23 Range/Units 23:30 23:30 23:30 WBC 5.8 (3.8-10.6) k/uL RBC 4.62 (4.30-5.90) m/uL Hgb 14.2 (13.0-17.5) gm/dL Hct 41.9 (39.0-53.0) % MCV 90.7 (80.0-100.0) fL MCH 30.7 (25.0-35.0) pg MCHC 33.9 (31.0-37.0) g/dL RDW 16.5 H (11.5-15.5) % Plt Count 159 (150-450) k/uL MPV 8.0 Neutrophils % 85 % Lymphocytes % 8 % Monocytes % 5 % Eosinophils % 1 % Basophils % 0 % Neutrophils # 5.0 (1.3-7.7) k/uL Lymphocytes # 0.4 L (1.0-4.8) k/uL Monocytes # 0.3 (0-1.0) k/uL Eosinophils # 0.0 (0-0.7) k/uL Basophils # 0.0 (0-0.2) k/uL Anisocytosis Slight PT 11.6 (10.0-12.5) sec INR 1.1 (<1.2) APTT 25.7 (22.0-30.0) sec Sodium 136 L (137-145) mmol/L Potassium 4.1 (3.5-5.1) mmol/L Chloride 104 (98-107) mmol/L Carbon Dioxide 20 L (22-30) mmol/L Anion Gap 12 mmol/L BUN 18 (9-20) mg/dL Creatinine 1.04 (0.66-1.25) mg/dL Est GFR (CKD-EPI)AfAm 77 (>60 ml/min/1.73 sqM) Est GFR (CKD-EPI)NonAf 66 (>60 ml/min/1.73 sqM) Glucose 109 H (74-99) mg/dL Plasma Lactic Acid Yeison (0.7-2.0) mmol/L Calcium 9.1 (8.4-10.2) mg/dL Magnesium 1.6 (1.6-2.3) mg/dL Total Bilirubin 0.9 (0.2-1.3) mg/dL AST 17 (17-59) U/L ALT 14 (4-49) U/L Alkaline Phosphatase 55 (38-126) U/L Total Protein 5.8 L (6.3-8.2) g/dL Albumin 3.6 (3.5-5.0) g/dL Influenza Type A (PCR) (Not Detectd) Influenza Type B (PCR) (Not Detectd) RSV (PCR) (Not Detectd) SARS-CoV-2 (PCR) (Not Detectd) 09/17/23 09/17/23 Range/Units 23:30 23:30 WBC (3.8-10.6) k/uL RBC (4.30-5.90) m/uL Hgb (13.0-17.5) gm/dL Hct (39.0-53.0) % MCV (80.0-100.0) fL MCH (25.0-35.0) pg MCHC (31.0-37.0) g/dL RDW (11.5-15.5) % Plt Count (150-450) k/uL MPV Neutrophils % % Lymphocytes % % Monocytes % % Eosinophils % % Basophils % % Neutrophils # (1.3-7.7) k/uL Lymphocytes # (1.0-4.8) k/uL Monocytes # (0-1.0) k/uL Eosinophils # (0-0.7) k/uL Basophils # (0-0.2) k/uL Anisocytosis PT (10.0-12.5) sec INR (<1.2) APTT (22.0-30.0) sec Sodium (137-145) mmol/L Potassium (3.5-5.1) mmol/L Chloride (98-107) mmol/L Carbon Dioxide (22-30) mmol/L Anion Gap mmol/L BUN (9-20) mg/dL Creatinine (0.66-1.25) mg/dL Est GFR (CKD-EPI)AfAm (>60 ml/min/1.73 sqM) Est GFR (CKD-EPI)NonAf (>60 ml/min/1.73 sqM) Glucose (74-99) mg/dL Plasma Lactic Acid Yeison 1.2 (0.7-2.0) mmol/L Calcium (8.4-10.2) mg/dL Magnesium (1.6-2.3) mg/dL Total Bilirubin (0.2-1.3) mg/dL AST (17-59) U/L ALT (4-49) U/L Alkaline Phosphatase (38-126) U/L Total Protein (6.3-8.2) g/dL Albumin (3.5-5.0) g/dL Influenza Type A (PCR) Not Detected (Not Detectd) Influenza Type B (PCR) Not Detected (Not Detectd) RSV (PCR) Not Detected (Not Detectd) SARS-CoV-2 (PCR) Not Detected (Not Detectd) - EKG Data -: EKG Interpreted by Me EKG Comments: 12-lead Electrocardiogram Interpretation Note EKG was reviewed and interpreted by myself. 12-lead ECG performed at 2359 is interpreted by me as revealing rate controlled atrial fibrillation at a rate of 68 beats per minute. Ackerly is normal. QRS duration is 104 ms, QTc is 407 ms.. There were no ST or T wave abnormalities to suggest myocardial ischemia or injury. R wave progression across the precordium was satisfactory. By my inter pretation this EKG is non-diagnostic for acute ischemia. Disposition Clinical Impression: COPD (chronic obstructive pulmonary disease), Lung mass Disposition: ADMITTED IP TO THIS HOSP Condition: Stable Time of Disposition: 00:59
[2023-09-18] MEDS: IPRATROPIUM-ALBUTEROL 3 ML NEB INHALATION SCH ×6 (04:00→23:54)
[2023-09-18] MEDS: ISOSORBIDE MONONITRATE ER 60 MG TAB.ER.24H PO SCH (08:26)
[2023-09-18] MEDS: lisinopriL 10 MG TAB PO SCH ×2 (08:26→19:57)
[2023-09-18] MEDS ORDERED: methylPREDNISolone SOD SUCCI 40 MG/ML 1 ML VIAL IV SCH (09:00)
[2023-09-18] MEDS: SYMBICORT 160-4.5 MCG INHALER INHALATION SCH ×2 (09:10→20:49)
[2023-09-18] MEDS ORDERED: DEXTROSE 50% SYRINGE 50 ML IVP PRN ×2 (10:14)
--- NOTE | 2023-09-18 12:46 | P.CNPUL ---
History of Present Illness Consult date: 09/18/23 Requesting physician: Kojo Viveros Reason for consult: abnormal CXR/CT Chief complaint: Hemoptysis History of present illness: This is a very pleasant 83-year-old male patient with a known history of prostate cancer, coronary disease with previous stent placement 2 remains on Plavix, chronic obstructive pulmonary disease, atrial fibrillation, former smoker. He was also recently diagnosed with poorly differentiated non-small cell lung cancer via biopsy on 09/01/2023. Scan on 09/08/2023 revealed right lower lobe 6.1 x 5.0 cm cavitating mass with a max SUV of 28.8. There is also an indeterminate left masseter space FDG activity suspicious for malignancy. He presented to the emergency room last evening with concerns regarding hemoptysis. He states he has been coughing up blood since his biopsy. He is due to see oncology on 09/22/2023 a treatment plan. Chest x-ray reveals the right lung mass. No new suspicious areas or acute pulmonary process identified. White count 5.8. Hemoglobin 14.2. Platelets 159. INR 1.1. Sodium 136. Potassium 4.1. Bicarb 20. BUN 18. Creatinine 1.04. Glucose 109. Viral screen was negative. He is seen today in consultation in the emergency department. He is currently sitting up in a stretcher. Awake and alert in no acute distress. He is maintaining O2 saturations in the 90s on room air. He's afebrile. Hemodynamically stable. Review of Systems REVIEW OF SYSTEMS: CONSTITUTIONAL: Denies any recent significant weight loss or weight gain. EYES: Denies change in vision. EARS, NOSE, MOUTH, THROAT: Denies headaches, denies sore throat. CARDIOVASCULAR: Denies chest pain, palpitations or syncopal episodes. RESPIRATORY: Positive for hemoptysis. GASTROINTESTINAL: Denies change in appetite, denies abdominal pain GENITOURINARY: Denies hematuria, denies infections. MUSKULOSKELETAL: Denies pain, denies swelling. INTEGUMENTARY: Denies rash, denies eczema. NEUROLOGICAL: Denies recent memory loss, no recent seizure activity. PSYCHIATRIC: Denies anxiety, denies depression. HEMATOLOGIC/LYMPHATIC: Denies anemia, denies enlarged lymph nodes. Past Medical History Past Medical History: Atrial Fibrillation, Coronary Artery Disease (CAD), GI Bleed, Hyperlipidemia, Hypertension, Pneumonia, Skin Disorder, Sleep Apnea/CPAP/BIPAP Additional Past Medical History / Comment(s): back pain-increased pain with walking,Vertigo, hiatal hernia, gout, eczema, bleeds easily,uses cpap, mass on lung History of Any Multi-Drug Resistant Organisms: None Reported Past Surgical History: Cholecystectomy, Heart Catheterization With Stent, Orthopedic Surgery Additional Past Surgical History / Comment(s): Exploratory Abdominal Surgery; ORIF titanium/screws in LT Ankle. REPAIR BICEP TENDON LT ARM. RT CATARACT. STENTS X2. cyst removed from under chin, Past Anesthesia/Blood Transfusion Reactions: Previous Problems w/ Anesthesia Additional Past Anesthesia/Blood Transfusion Reaction / Comment(s): DEVELOPED AFIB AFTER CATARACT SURG 2013 Date of Last Stent Placement:: 2002 Past Psychological History: No Psychological Hx Reported Smoking Status: Never smoker Past Alcohol Use History: None Reported Past Drug Use History: None Reported - Past Family History Mother Family Medical History: Myocardial Infarction (MD) Father Family Medical History: Myocardial Infarction (MD) Medications and Allergies Home Medications Medication Instructions Recorded Confirmed Type lisinopriL [Prinivil] 10 mg PO BID 07/15/14 09/18/23 History Clopidogrel Bisulfate [Plavix] 75 mg PO DAILY 09/03/17 09/18/23 History Isosorbide Mononitrate ER [Imdur] 60 mg PO DAILY 09/03/17 09/18/23 History Nitroglycerin Sl Tabs [Nitrostat] 0.4 mg SUBLINGUAL Q5M PRN 09/03/17 09/18/23 History Ranolazine [Ranexa] 500 mg PO BID 09/03/17 09/18/23 History Albuterol Nebulized [Ventolin 1.25 mg INHALATION RT-Q6H PRN 08/30/23 09/18/23 History Nebulized (Accuneb)] Colchicine 0.6 mg PO DAILY PRN 08/30/23 09/18/23 History Mv-Min/Folic/K1/Lycopen/Lutein 1 tab PO DAILY 08/30/23 09/18/23 History [Centrum Silver Men Tablet] Omeprazole 40 mg PO DAILY 08/30/23 09/18/23 History Ondansetron [Zofran] 4 mg PO Q6H PRN 08/30/23 09/18/23 History Tirzepatide [Mounjaro] 10 mg SQ TU 08/30/23 09/18/23 History allopurinoL [Zyloprim] 300 mg PO DAILY 08/30/23 09/18/23 History predniSONE 10 mg PO DAILY #30 tab 09/02/23 Rx Doxycycline Hyclate 100 mg PO BID 09/18/23 09/18/23 History Fluticasone/Umeclidin/Vilanter 1 puff INHALATION RT-DAILY 09/18/23 09/18/23 History [Trelegy Ellipta 100-62.5-25] Ipratropium-Albuterol Nebulize 3 ml INHALATION RT-QID 09/18/23 09/18/23 History [Duoneb 0.5 mg-3 mg/3 ml Soln] Allergies Allergy/AdvReac Type Severity Reaction Status Date / Time cortisone [Cortisone] Allergy Swelling Verified 09/18/23 12:14 and itching Physical Exam Vitals: Vital Signs Temp Pulse Resp BP Pulse Ox 09/18/23 12:19 82 09/18/23 12:07 79 09/18/23 11:55 84 18 145/72 99 09/18/23 09:25 81 09/18/23 09:11 80 100 09/18/23 08:31 78 18 135/77 99 09/18/23 04:59 71 16 136/59 97 09/18/23 04:10 76 09/18/23 04:07 76 09/18/23 04:00 72 09/18/23 02:46 97.8 F 70 16 120/60 97 09/18/23 00:30 79 09/18/23 00:21 76 09/17/23 22:26 24 09/17/23 22:23 97.5 F L 90 16 140/66 96 Intake and Output 09/17/23 09/18/23 09/18/23 22:59 06:59 14:59 Other: Weight 114.759 kg Results - Laboratory Findings CBC and BMP: 09/17/23 23:30 09/17/23 23:30 PT/INR, D-dimer PT 11.6 sec (10.0-12.5) 09/17/23 23:30 INR 1.1 (<1.2) 09/17/23 23:30 Abnormal lab findings: Abnormal Labs 09/17/23 09/17/23 23:30 23:30 RDW 16.5 H Lymphocytes # 0.4 L Sodium 136 L Carbon Dioxide 20 L Glucose 109 H Total Protein 5.8 L - Diagnostic Findings Chest x-ray: image reviewed Assessment and Plan Assessment: Hemoptysis suspect secondary to recent lung biopsy on 09/01/2023 positive for non-small cell lung cancer. He has a right lower lobe cavitating mass measuring 6.1 x 5.0 cm with an SUV of 28.8. Plan is to see medical oncology on 09/22/2023 Recent PET scan highlighting right lung mass as well as a suspicious area in the left masseter space History of coronary disease with previous stent placements maintained on Plavix Daquan. fibrillation Hyperlipidemia History of GI bleed Hypertension Former smoker, quit 1979 Plan: The patient was seen and evaluated Chest x-ray, labs and medications reviewed Continue to monitor hemoglobin Continue bronchodilators, steroids Continue antibiotics for now Check a pro-calcitonin Consult medical oncology We will continue to follow and make further recommendations based on his clinical status I have personally seen and examined the patient, performed the documentation and the assessment and plan as written. Number of minutes spent on the visit: 20.
--- NOTE | 2023-09-18 13:32 | HP ---
HISTORY AND PHYSICAL CHIEF COMPLAINT: Hemoptysis, cough, shortness of breath. HISTORY OF PRESENT ILLNESS: This is an 83-year-old gentleman with a past medical evaluation with bronchoscopy. The biopsy came back positive for poorly differentiated [id number] carcinoma. The patient had hemoptysis on and off ever since, but currently, yesterday, the patient has significant shortness of breath and has hemoptysis. I checked the sputum, which is a combination of blood and mucopurulent also noted. There is no history of any fever, rigors, or chills. Dr. Moya's evaluation PAST MEDICAL HISTORY: Reviewed include: 1. Atrial fibrillation. 2. CAD. 3. Hypertension. 4. Hyperlipidemia also reviewed. HOME MEDICATIONS: Reviewed. They are not confirmed yet. Lisinopril . ALLERGIES: Cortisone. FAMILY HISTORY: History of myocardial infarction. SOCIAL HISTORY: History of smoking. REVIEW OF SYSTEMS: A 14-point review is negative as mentioned. PHYSICAL EXAMINATION: VITAL SIGNS: Pulse is 80, blood pressure 130/76, respirations 18. HEENT: Conjunctivae normal. NECK: No jugular venous distention. CARDIOVASCULAR: S1, S2. RESPIRATIONS: Breath sounds diminished at the bases. Few scattered rhonchi. ABDOMEN: Soft LABORATORY DATA: Sodium n. Rest of the labs are noted. ASSESSMENT: 1. Right lung cancer with possibly postobstructive pneumonia with hemoptysis. 2. Newly diagnosed poorly differentiated non-small cell carcinoma. 3. Hyponatremia. 4. Atrial fibrillation. 5. Hypertension. 6. Hyperlipidemia. 7. Sleep apnea. 8. History of coronary artery disease, 9. Multiple complex medical issues. RECOMMENDATION: This 83-year-old gentleman presented with multiple complex medical issues. At this time, I recommend to continue current management and treatment. We will initiate bronchodilators, steroids, and antibiotics. Otherwise, I would also recommend Pulmonary and Hematology/Oncology consultations. Check serum procalcitonin, otherwise, obtain cultures. Hematology/Oncology evaluation for plan for the new lung cancer diagnosis. Prognosis guarded because of multiple complex medical issues. Further recommendations to follow. See orders for details. MMODL / IJN: [id number] / MTDD
[2023-09-18] MEDS ORDERED: COLCHICINE 0.6 MG EACH PO PRN (13:35)
[2023-09-18] MEDS ORDERED: NITROGLYCERIN SL TABS 0.4 MG TAB SUBLINGUAL PRN (13:35)
[2023-09-18] MEDS ORDERED: ONDANSETRON 4 MG TAB PO PRN (13:35)
[2023-09-18] MEDS: INSULIN ASPART (NovoLOG) 100 UNIT/ML VIAL SQ SCH ×3 (14:01→20:12)
[2023-09-18] MEDS: methylPREDNISolone SOD SUCCI 125 MG/2 ML VIAL IV SCH ×3 (14:02→23:15)
[2023-09-18 17:35] LABS: Glucose,Whole Blood 194 mg/dL (70-110)
[2023-09-18 20:08] LABS: Glucose,Whole Blood 169 mg/dL (70-110)
[2023-09-18] MEDS: RANOLAZINE 500 MG TAB.ER.12H PO SCH (20:12)
[2023-09-19] MEDS ORDERED: ACETAMINOPHEN TAB 500 MG TAB PO PRN (01:16)
[2023-09-19] MEDS: IPRATROPIUM-ALBUTEROL 3 ML NEB INHALATION SCH ×4 (05:50→15:43)
[2023-09-19] MEDS: methylPREDNISolone SOD SUCCI 125 MG/2 ML VIAL IV SCH ×2 (05:51→12:31)
[2023-09-19 06:57] LABS: Glucose,Whole Blood 125 mg/dL (70-110)
[2023-09-19] MEDS: INSULIN ASPART (NovoLOG) 100 UNIT/ML VIAL SQ SCH ×2 (07:18→12:31)
[2023-09-19 08:00] VITALS: RESP 18; TEMP 97.5
[2023-09-19] MEDS: SYMBICORT 160-4.5 MCG INHALER INHALATION SCH (08:18)
--- NOTE | 2023-09-19 08:53 | P.GSCN ---
History of Present Illness Consult date: 09/19/23 Reason for Consult: lung cancer Requesting physician: Kojo Viveros History of present illness: This is an 83-year-old gentleman who follows outpatient with Dr. Kojo Viveros for primary care and Dr. Kuhn for cardiology. He has a previous medical history of coronary artery disease with PCI currently maintained on Plavix, chronic persistent atrial fibrillation with failed cardioversion attempt, hypertension, hyperlipidemia, prostate cancer, previous tobacco dependence, and obstructive sleep apnea on home CPAP use. This gentleman was hospitalized at the end of August 2023 for shortness of breath, cough, and suspected pneumonia. During that admission he had had multiple chest x-rays as well as chest CT demonstrating a large 6.3 cm spiculated mass within the right lower lung consistent with neoplasm. He underwent bronchoscopy with bronchoalveolar lavage and EBUS with biopsy taken, pathology was positive for poorly differentiated non-small cell carcinoma. The patient was treated and discharged to home. On 09/09/2023 he underwent a PET scan which revealed cavitating right lower lobe mass measuring 6.5 x 5.0 cm with max SUV 28.8, no lymphadenopathy, no abnormal FDG avidity within the lymph nodes. In addition there was indeterminate left neon sign worker space which was FDG avid, suspicious for ma lignancy. The patient was scheduled to see Dr. Stanley in the clinic on September 22 for discussion regarding lobectomy, however he unfortunately has had increased cough and blood-tinged sputum since his biopsy and she presented to [facility] emergency room for evaluation and treatment. His vital signs have remained stable, he has remained afebrile, WBC was normal at 5.8, lactic acid was normal at 1.2, procalcitonin was normal at 0.06, covid/RSV/influenza PCRs were all negative. The patient was admitted for observation and placed on IV Solu-Medrol and ceftriaxone. Consultation was placed to pulmonology, oncology, and cardiothoracic surgery. Of note the patient states he takes Eliqu is chronically for his atrial fibrillation, however there is no documentation of this during this or previous admission. Review of Systems Review of systems was completed and was negative except as noted - Respiratory Reports cough with sputum Past Medical History Past Medical History: Atrial Fibrillation, Coronary Artery Disease (CAD), Cancer, GI Bleed, Hyperlipidemia, Hypertension, Pneumonia, Skin Disorder, Sleep Apnea/CPAP/BIPAP Additional Past Medical History / Comment(s): back pain-increased pain with walking,Vertigo, hiatal hernia, gout, eczema, bleeds easily,uses cpap, lung cancer, history of prostate cancer History of Any Multi-Drug Resistant Organisms: None Reported Past Surgical History: Cholecystectomy, Heart Catheterization With Stent, Orthopedic Surgery Additional Past Surgical History / Comment(s): Exploratory Abdominal Surgery; ORIF titanium/screws in LT Ankle. REPAIR BICEP TENDON LT ARM. RT CATARACT. STENTS X2. cyst removed from under chin, Past Anesthesia/Blood Transfusion Reactions: Previous Problems w/ Anesthesia Additional Past Anesthesia/Blood Transfusion Reaction / Comm: DEVELOPED AFIB AFTER CATARACT SURG 2013 Date of Last Stent Placement:: 2002 Past Psychological History: No Psychological Hx Reported Smoking Status: Former smoker Past Alcohol Use History: Occasional Past Drug Use History: None Reported Additional History: Quit smoking in 1979, previously smoked 1 pack per day for 15-20 years - Past Family History Mother Family Medical History: Coronary Artery Disease (CAD), Myocardial Infarction (VT ) Additional Family Medical History / Comment(s): from myocardial infarction at 69 years old Father Family Medical History: Coronary Artery Disease (CAD), Myocardial Infarction (VT) Additional Family Medical History / Comment(s): from myocardial infarction at 69 years old Medications and Allergies Home Medications Medication Instructions Recorded Confirmed Type lisinopriL [Prinivil] 10 mg PO BID 07/15/14 09/18/23 History Clopidogrel Bisulfate [Plavix] 75 mg PO DAILY 09/03/17 09/18/23 History Isosorbide Mononitrate ER [Imdur] 60 mg PO DAILY 09/03/17 09/18/23 History Nitroglycerin Sl Tabs [Nitrostat] 0.4 mg SUBLINGUAL Q5M PRN 09/03/17 09/18/23 Hi story Ranolazine [Ranexa] 500 mg PO BID 09/03/17 09/18/23 History Albuterol Nebulized [Ventolin 1.25 mg INHALATION RT-Q6H PRN 08/30/23 09/18/23 History Nebulized (Accuneb)] Colchicine 0.6 mg PO DAILY PRN 08/30/23 09/18/23 History Mv-Min/Folic/K1/Lycopen/Lutein 1 tab PO DAILY 08/30/23 09/18/23 History [Centrum Silver Men Tablet] Omeprazole 40 mg PO DAILY 08/30/23 09/18/23 History Ondansetron [Zofran] 4 mg PO Q6H PRN 08/30/23 09/18/23 History Tirzepatide [Mounjaro] 10 mg SQ TU 08/30/23 09/18/23 History allopurinoL [Zyloprim] 300 mg PO DAILY 08/30/23 09/18/23 History Doxycycline Hyclate 100 mg PO BID 09/18/23 09/18/23 History Fluticasone/Umeclidin/Vilanter 1 puff INHALATION RT-DAILY 09/18/23 09/18/23 History [Trelegy Ellipta 100-62.5-25] Ipratropium-Albuterol Nebulize 3 ml INHALATION RT-QID 09/18/23 09/18/23 History [Duoneb 0.5 mg-3 mg/3 ml Soln] Allergies Allergy/AdvReac Type Severity Reaction Status Date / Time cortisone [Cortisone] Allergy Swelling Verified 09/18/23 12:14 and itching Surgical - Exam Vital Signs Temp Pulse Resp BP Pulse Ox 97.5 F L 90 16 140/66 96 09/17/23 22:23 09/17/23 22:23 09/17/23 22:23 09/17/23 22:23 09/17/23 22:23 CONSTITUTIONAL: Awake and alert, appears comfortable, cooperative, well- developed, well-nourished, no pain, no acute distress EYES: Pupils equal, round, reactive to light, normal ocular movement ENT: Moist mucous membranes without oral lesions present NECK: No masses, no bruits, trachea midline RESPIRATORY: Lungs sounds clear to auscultation bilaterally, diminished in the right base. Respirations even, nonlabored. Currently on 2 L nasal cannula with oxygen saturation 98%. Strong cough, blood-tinged sputum CARDIOVASCULAR: S1, S2 present. Irregular rate and rhythm, controlled atrial fibrillation on telemetry. Palpable peripheral pulses bilaterally. No edema present GASTROINTESTINAL: Abdomen soft, nontender, nondistended, round without masses or organomegaly noted. There is no rebound or guarding present. Active bowel sounds present 4 quadrants. GENITOURINARY: Deferred INTEGUMENTARY: Skin is warm and dry NEUROLOGIC: Cranial nerves II through XII intact, normal coordination, no obvious motor or sensory deficits, speech is normal MUSKULOSKELETAL: Able to move all extremities, strength equal bilaterally, normal posture PSYCHIATRIC: Alert and oriented to person place and time, appropriate affect, intact judgment and insight Results - Labs 09/19/23 09:41 09/17/23 23:30 Abnormal Lab Results - Last 24 Hours (Table) 09/18/23 09/18/23 09/19/23 Range/Units 17:32 20:06 06:56 POC Glucose (mg/dL) 194 H 169 H 125 H (70-110) mg/dL - Imaging Chest x-ray: report reviewed, image reviewed CT scan - chest: report reviewed, image reviewed EKG: image reviewed Additional studies: PET scan reviewed Assessment and Plan Assessment: Poorly differentiated non-small cell lung carcinoma Chronic cough, hemoptysis since lung biopsy History of coronary artery disease with PCI currently maintained on Plavix Chronic persistent atrial fibrillation with failed cardioversion attempt, ?? on Eliquis for anticoagulation Hypertension Hyperlipidemia History of prostate cancer Previous tobacco dependence Obstructive sleep apnea on home CPAP use Plan: The patient was seen and examined up on a cart in the emergency room in no acute distress. Denies any chest pain or shortness of breath at this time. He is oxygenating well on minimal oxygen. Remains in atrial fibrillation but controlled. Does have sputum in a bucket which he coughed up, does appear to have some blood in it but hemoglobin/vital signs remain stable so no significant blood loss. Probably irritation from coughing while remaining on Plavix and possibly Eliquis. Discussed lobectomy with patient, he would need pulmonary function test prior to any surgery as well as cardiac clearance. He would need to be off antiplatelet and anticoagulation prior to surgery. No surgical intervention planned this admission. Dr. Stanley will need to review the patient's case and diagnostics. Appreciate oncology recommendations. More recommendations to follow from surgical standpoint. In the meantime increase activity as tolerated, wean O2 as tolerated. Medical management per internal medicine, pulmonology. Thank you Dr. Viveros for this consult, we will continue to follow with this patient and make further recommendations as appropriate. I have personally seen and examined the patient, performed the documentation and the assessment and plan as written. Number of minutes spent on the visit: 30. NOLVIA Etienne
[2023-09-19] MEDS ORDERED: MULTIVITAMINS, THERA 1 EACH TAB PO SCH (09:00)
[2023-09-19] MEDS ORDERED: PANTOPRAZOLE 40 MG TABLET PO SCH (09:00)
[2023-09-19] MEDS ORDERED: CLOPIDOGREL 75 MG TAB PO SCH (09:00)
[2023-09-19] MEDS ORDERED: allopurinoL 300 MG TAB PO SCH (09:00)
[2023-09-19] MEDS: lisinopriL 10 MG TAB PO SCH (09:12)
[2023-09-19] MEDS: ISOSORBIDE MONONITRATE ER 60 MG TAB.ER.24H PO SCH (09:12)
[2023-09-19] MEDS: RANOLAZINE 500 MG TAB.ER.12H PO SCH (09:12)
--- NOTE | 2023-09-19 09:46 | P.PN ---
Subjective Progress Note Date: 09/19/23 This is a very pleasant 83-year-old male patient with a known history of prostate cancer, coronary disease with previous stent placement 2 remains on Plavix, chronic obstructive pulmonary disease, atrial fibrillation, former smoker. He was also recently diagnosed with poorly differentiated non-small ce ll lung cancer via biopsy on 09/01/2023. Scan on 09/08/2023 revealed right lower lobe 6.1 x 5.0 cm cavitating mass with a max SUV of 28.8. There is also an indeterminate left masseter space FDG activity suspicious for malignancy. He presented to the emergency room last evening with concerns regarding hemoptysis. He states he has been coughing up blood since his biopsy. He is due to see oncology on 09/22/2023 a treatment plan. Chest x-ray reveals the right lung mass. No new suspicious areas or acute pulmonary process identified. White count 5.8. Hemoglobin 14.2. Platelets 159. INR 1.1. Sodium 136. Potassium 4.1. Bicarb 20. BUN 18. Creatinine 1.04. Glucose 109. Viral screen was negative. He is seen in hospital due to concerns of hemoptysis. today in consultation in the emergency department. He is currently sitting up in a stretcher. Awake and alert in no acute distress. He is maintaining O2 saturations in the 90s on room air. He's afebrile. Hemodynamically stable. On 09/19/2023, I'm seeing the patient for a follow-up. Is having still some congested cough. No significant hemoptysis and this has subsided. There is some dark mucoid sputum that he is coughing at this point in time. He was taken off Plavix for the time being. The patient has been diagnosed having non-small cell lung cancer likely of a squamous cell type. I'm going to me that it was for this patient to see Dr. Brito and Dr. Stanley on an outpatient basis. Apparently both were consulted during this current hospitalization. He is on room air oxygen. He was having significant amount of mucus and congestion for that reason I put him on Trelegy Ellipta on outpatient basis. He took it for a few days and ultimately and up in a hospital due to concerns of hemoptysis. The patient also has chronic atrial fibrillation. He has a watchman in place. He has not been able to take long-term and coagulation. The Plavix was added for coronary stenting in his coronary stent was in [address] Kuhn. Objective - Vital Signs Vital signs: Vital Signs Temp 97.5 F L 09/19/23 07:22 Pulse 83 09/19/23 08:27 Resp 18 09/19/23 07:22 BP 134/82 09/19/23 07:22 Pulse Ox 97 09/19/23 08:19 FiO2 - Exam GENERAL EXAM: Alert, 83-year-old white male, comfortable in no apparent distress. HEAD: Normocephalic and atraumatic EYES: Normal reaction of pupils, equal size. NOSE: Clear with pink turbinates. THROAT: No erythema or exudates. NECK: No masses, no JVD. CHEST: No chest wall deformity. LUNGS: Equal air entry with rhonchi heard bilaterally and scattered expiratory wheezes. On room air. No conversational dyspnea or accessory muscle use.. CVS: S1 and S2 normal with no audible murmur, irregular rhythm. No extra heart sounds ABDOMEN: No hepatosplenomegaly, active bowel sounds, no guarding or rigidity. SPINE: No scoliosis or deformity SKIN: No rashes CENTRAL NERVOUS SYSTEM: No focal deficits, tone is normal in all 4 extremities. EXTREMITIES: There is no peripheral edema, clubbing, or cyanosis. Peripheral pulses are intact. - Labs CBC & Chem 7: 09/17/23 23:30 09/17/23 23:30 Labs: Abnormal Lab Results - Last 24 Hours (Table) 09/18/23 09/18/23 09/19/23 Range/Units 17:32 20:06 06:56 POC Glucose (mg/dL) 194 H 169 H 125 H (70-110) mg/dL Assessment and Plan Plan: Hemoptysis , likely source being the right lower lobe cavitating mass which is likely a squamous cell carcinoma. This is further complicated by the intake of Plavix. Squamous cell carcinoma of the right lung with a large right lower lobe mass and central cavitation. CAT scan shows no evidence of any distant metastases. The patient has a 6.1 x 5 cm mass in the right lower lobe with an SUV of 28. The patient was referred to Dr. Aiken and Dr. Curtis Stanley to discuss treatment plan. Consider neoadjuvant therapy with subsequent surgical resection once the patient's pulmonary status is more stable. History of coronary disease with previous stent placements maintained on Plavix, cardiac catheterization stenting was done by Dr. Kuhn back in 2003 and the patient has been maintained on Plavix since. COPD with ongoing chest congestion. Previous bronchoscopy and bronchial lavage yielded no microbial growth, pro-calcitonin is low. Chest x-ray shows a cavitating mass in the right lower lobe. No evidence of any airspace disease or pneumonia. Chronic atrial fibrillation and the patient has a watchman. He has not been subjected to long-term anticoagulation. Hyperlipidemia History of GI bleed Hypertension Former smoker, quit 1979 Plan: Hold Plavix Continue to monitor hemoglobin Continue bronchodilators, steroids No signs of any pneumonia and antibiotics can be discontinued Consult medical oncology and plastic surgery. The patient may ultimately need a right lower lobe resection. He has a bulky tumor in the right lower lobe and he would benefit also from possible neoadjuvant treatment with subsequent surgical resection. This will be discussed at the tumor board. This will also discussed with the various teams involved in the care. We will continue to follow and make further recommendations based on his clinic al status
[2023-09-19 10:20] LABS: Anisocytosis Slight; Basophils % (A) 0 %; Eosinophils % (A) 0 %; HCT 44.8 % (39.0-53.0); HGB 14.5 gm/dL (13.0-17.5); Lymphocytes # (A) 0.2 k/uL (1.0-4.8); Lymphocytes % (A) 2 %; MCH 30.3 pg (25.0-35.0); MCHC 32.3 g/dL (31.0-37.0); MCV 93.9 fL (80.0-100.0); Mean Platelet Volume 7.9; Monocytes # (A) 0.3 k/uL (0-1.0); Monocytes % (A) 2 %; Neutrophils # (A) 12.1 k/uL (1.3-7.7); Neutrophils % (A) 96 %; Platelet Count 160 k/uL (150-450); RBC 4.77 m/uL (4.30-5.90); RDW 16.4 % (11.5-15.5); WBC 12.6 k/uL (3.8-10.6)
[2023-09-19 11:03] LABS: ALT 22 U/L (4-49); AST 23 U/L (17-59); African American GFR (CKD) 80 (>60 ml/min/1.73 sqM); Albumin 3.9 g/dL (3.5-5.0); Albumin/Globulin Ratio 1.6; Alkaline Phosphatase 63 U/L (38-126); Anion Gap 11 mmol/L; Blood Urea Nitrogen 25 mg/dL (9-20); Calcium 9.6 mg/dL (8.4-10.2); Carbon Dioxide 21 mmol/L (22-30); Chloride 102 mmol/L (98-107); Globulin 2.4 g/dL; Glucose 168 mg/dL (74-99); Non-African American GFR(CKD) 69 (>60 ml/min/1.73 sqM); Potassium 4.5 mmol/L (3.5-5.1); Sodium 134 mmol/L (137-145); Total Bilirubin 0.8 mg/dL (0.2-1.3); Total Protein 6.3 g/dL (6.3-8.2)
[2023-09-19 12:31] LABS: Glucose,Whole Blood 127 mg/dL (70-110)
--- NOTE | 2023-09-19 13:49 | P.CONS ---
History of Present Illness - Reason for Consult Consult date: 09/19/23 Recent diagnosis of poorly differentiated non-small cell lung cancer Requesting physician: Isabela Sheth - Chief Complaint Hemoptysis - History of Present Illness Mr. Bull is an 83-year-old patient who was recently referred and due to see Dr. Aiken at the end of this week for newly diagnosed poorly differentiated non- small cell lung cancer. Pt was seen at [facility] emergency department 08/30/23 with complaints of shortness of breath and cough. He had been diagnosed with pneumonia at an urgent care about one week prior, symptoms were persistent. He had a CT of the chest reported a large 6.3 cm spiculated mass with central necrosis in the right lower lung. He was seen by Pulmonary and 09/02/23 had bronchoscopy with BAL of the right lower lobe, removable of mucous plugs bilaterally, robotic-assisted bronchoscopy with transbronchial bronchial needle aspirate and trans-bronchial biopsies. Final pathology reported FNA, BAL and brushings all showing poorly differentiated non-small cell carcinoma. Transbronchial biopsy positive for poorly differentiated non-small cell carcinoma. 09/09/23 staging PET scan showed RUL mass with cavitation measuring 6.1 x 5 with an SUV of 28.8. Also, the left masseter area showing an FDG of 22. Patient is due to meet with CTS for assessment for possible surgical resection. Discussions are in process as to if adjuvant treatment should be done to reduce the size of the mass prior to surgery. Patient reports that after biopsy he has had some hemoptysis, this was progressive and associated with some worsening shortness of breath and intractable cough. He denied any fevers, chills, nausea, vomiting, abdominal pain or cramping, chest pain, acute changes in bowel or bladder habits, swelling in the legs. He is feeling better since admission, the hemoptysis has substantially slowed, the blood is looking darker, the cough is not as harsh. 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 Patient is off eliquis for A. fib as he has had a watchman's procedure. He is currently still on Plavix for history of PCI. Review of Systems 14 point review of systems is negative except as stated in HPI Past Medical History Past Medical History: Atrial Fibrillation, Coronary Artery Disease (CAD), Cancer, GI Bleed, Hyperlipidemia, Hypertension, Pneumonia, Skin Disorder, Sleep Apnea/CPAP/BIPAP Additional Past Medical History / Comment(s): back pain-increased pain with walking,Vertigo, hiatal hernia, gout, eczema, bleeds easily,uses cpap, lung cancer, history of prostate cancer History of Any Multi-Drug Resistant Organisms: None Reported Past Surgical History: Cholecystectomy, Heart Catheterization With Stent, Orthopedic Surgery Additional Past Surgical History / Comment(s): Exploratory Abdominal Surgery; ORIF titanium/screws in LT Ankle. REPAIR BICEP TENDON LT ARM. RT CATARACT. STENTS X2. cyst removed from under chin, Past Anesthesia/Blood Transfusion Reactions: Previous Problems w/ Anesthesia Additional Past Anesthesia/Blood Transfusion Reaction / Comm: DEVELOPED AFIB AFTER CATARACT SURG 2013 Date of Last Stent Placement:: 2002 Past Psychological History: No Psychological Hx Reported Smoking Status: Former smoker Past Alcohol Use History: Occasional Past Drug Use History: None Reported - Past Family History Mother Family Medical History: Coronary Artery Disease (CAD), Myocardial Infarction ([place]) Additional Family Medical History / Comment(s): from myocardial infarction at 69 years old Father Family Medical History: Coronary Artery Disease (CAD), Myocardial Infarction ([place]) Additional Family Medical History / Comment(s): from myocardial infarction at 69 years old Medications and Allergies Home Medications Medication Instructions Recorded Confirmed Type lisinopriL [Prinivil] 10 mg PO BID 07/15/14 09/18/23 History Clopidogrel Bisulfate [Plavix] 75 mg PO DAILY 09/03/17 09/18/23 History Isosorbide Mononitrate ER [Imdur] 60 mg PO DAILY 09/03/17 09/18/23 History Nitroglycerin Sl Tabs [Nitrostat] 0.4 mg SUBLINGUAL Q5M PRN 09/03/17 09/18/23 History Ranolazine [Ranexa] 500 mg PO BID 09/03/17 09/18/23 History Albuterol Nebulized [Ventolin 1.25 mg INHALATION RT-Q6H PRN 08/30/23 09/18/23 History Nebulized (Accuneb)] Colchicine 0.6 mg PO DAILY PRN 08/30/23 09/18/23 History Mv-Min/Folic/K1/Lycopen/Lutein 1 tab PO DAILY 08/30/23 09/18/23 History [Centrum Silver Men Tablet] Omeprazole 40 mg PO DAILY 08/30/23 09/18/23 History Ondansetron [Zofran] 4 mg PO Q6H PRN 08/30/23 09/18/23 History Tirzepatide [Mounjaro] 10 mg SQ TU 08/30/23 09/18/23 History allopurinoL [Zyloprim] 300 mg PO DAILY 08/30/23 09/18/23 History Doxycycline Hyclate 100 mg PO BID 09/18/23 09/18/23 History Fluticasone/Umeclidin/Vilanter 1 puff INHALATION RT-DAILY 09/18/23 09/18/23 History [Trelegy Ellipta 100-62.5-25] Ipratropium-Albuterol Nebulize 3 ml INHALATION RT-QID 09/18/23 09/18/23 History [Duoneb 0.5 mg-3 mg/3 ml Soln] Budesonide-Formot 160-4.5 Mcg 2 puff INHALATION RT-BID 30 Days 09/19/23 Rx [Symbicort 160-4.5 Mcg Inhaler] #1 each Ipratropium-Albuterol Nebulize 3 ml INHALATION RT-Q4H 30 Days 09/19/23 Rx [Duoneb 0.5 mg-3 mg/3 ml Soln] #120 each Allergies Allergy/AdvReac Type Severity Reaction Status Date / Time cortisone [Cortisone] Allergy Swelling Verified 09/18/23 12:14 and itching Physical Exam Vitals: Vital Signs Temp Pulse Resp BP Pulse Ox 09/19/23 08:27 83 09/19/23 08:19 77 97 09/19/23 07:22 97.5 F L 74 18 134/82 98 09/19/23 06:57 72 19 134/82 97 09/19/23 02:00 86 18 134/40 95 09/19/23 01:00 80 16 155/69 96 09/19/23 00:00 93 18 151/69 97 09/18/23 23:07 85 18 151/69 95 09/18/23 21:02 86 09/18/23 20:53 82 14 176/71 99 09/18/23 20:50 87 09/18/23 19:59 91 20 165/83 97 09/18/23 18:00 94 18 156/68 98 09/18/23 16:52 86 09/18/23 16:41 86 09/18/23 16:00 84 18 149/60 97 09/18/23 14:00 98.2 F 93 18 143/67 97 09/18/23 12:19 82 09/18/23 12:07 79 09/18/23 11:55 84 18 145/72 99 - Constitutional General appearance: cooperative, no acute distress, obese - EENT Eyes: anicteric sclerae, EOMI ENT: hearing grossly normal, normal oropharynx - Neck Neck: no lymphadenopathy - Respiratory Respiratory: bilateral: CTA - Cardiovascular Rhythm: regular Heart sounds: normal: S1, S2 Abnormal Heart Sounds: no systolic murmur, no diastolic murmur, no rub, no S3 Gallop, no S4 Gallop, no click, no other leg Peripheral Edema: bilateral: Trace - Gastrointestinal General gastrointestinal: no absent bowel sounds, no decreased bowel sounds, no distended, no hepatomegaly, no hyperactive bowel sounds, normal bowel sounds, no organomegaly, no rigid, no scaphoid, soft, no splenomegaly, no tenderness, no umbilical hernia, no ventral hernia - Integumentary Integumentary: normal - Neurologic Neurologic: CNII-XII intact - Musculoskeletal Musculoskeletal: strength equal bilaterally - Psychiatric Psychiatric: A&O x's 3, appropriate affect, intact judgment & insight Results CBC & Chem 7: 09/19/23 09:41 09/19/23 09:41 Labs: Abnormal Lab Results - Last 24 Hours (Table) 09/18/23 09/18/23 09/19/23 Range/Units 17:32 20:06 06:56 WBC (3.8-10.6) k/uL RDW (11.5-15.5) % Neutrophils # (1.3-7.7) k/uL Lymphocytes # (1.0-4.8) k/uL Sodium (137-145) mmol/L Carbon Dioxide (22-30) mmol/L BUN (9-20) mg/dL Glucose (74-99) mg/dL POC Glucose (mg/dL) 194 H 169 H 125 H (70-110) mg/dL 09/19/23 09/19/23 Range/Units 09:41 09:41 WBC 12.6 H (3.8-10.6) k/uL RDW 16.4 H (11.5-15.5) % Neutrophils # 12.1 H (1.3-7.7) k/uL Lymphocytes # 0.2 L (1.0-4.8) k/uL Sodium 134 L (137-145) mmol/L Carbon Dioxide 21 L (22-30) mmol/L BUN 25 H (9-20) mg/dL Glucose 168 H (74-99) mg/dL POC Glucose (mg/dL) (70-110) mg/dL Comments: PET scan report reviewed Pathology reports reviewed Chest x-ray: report reviewed Assessment and Plan (1) Non-small cell lung cancer (NSCLC) Current Visit: Yes Status: Acute Priority: High Code(s): C34.90 - MALIGNANT NEOPLASM OF UNSP PART OF UNSP BRONCHUS OR LUNG SNOMED Code(s): 236851998 (2) Cough with hemoptysis Current Visit: Yes Status: Acute Priority: Medium Code(s): R04.2 - HEMOPTYSIS SNOMED Code(s): 29139615 Plan: Newly diagnosed non-small cell lung cancer, poorly differentiated -Pending appointment with Dr. Aiken on the to discuss plans for treatment. -Possibly doing some neoadjuvant treatment to reduce tumor burden prior to cardiothoracic surgery is being discussed. Final treatment plan will be decided by patient, Medical Oncologist and CTS. Hemoptysis -Patient never had hemoptysis prior to biopsy. He did report an increase in severity of his cough just after procedure bronchoscopy. Reports that cough is significantly improved and the amount of hemoptysis he is expectorating is decreased. Likely irritation from recent biopsy, may also be from the cavitated lesion in the lung. Mild hemoptysis can be expected, and is not on usual in this case. Pulmonary has been consulted to assess. -Hemoglobin has remained stable. -It was discussed that if hemoptysis is persistent or progressive, radiation for symptoms is a possibility. -Patient verbalized understanding the plan and is in agreement with same. He will keep his appointment with Dr. Aiken. Patient is okay to be discharged from my Medical Oncology standpoint once he has been cleared by Attending and consulting Physicians. Doctor attests: I performed a history and physical examination of this patient, developed impression and plan of care. Discussed with dictator. I agree with dictators note, documented as a scribe.
[2023-09-19 16:48] VITALS: BP 146/65; PULSE 84
== END 2023-09-19 16:27 | disposition home or self-care (01) ==
LOC: EC 22:14 → 6NMEDSUR 09-18 01:12
PROVIDERS: ADMIT Family Medicine; ATTEND Family Medicine
DX: R04.2 Hemoptysis (principal); C34.31 Malignant neoplasm of lower lobe, right bronchus or lung; I25.10 Atherosclerotic heart disease of native coronary artery without angina pectoris; J44.9 Chronic obstructive pulmonary disease, unspecified; R09.89 Other specified symptoms and signs involving the circulatory and respiratory systems; I48.19 Other persistent atrial fibrillation; E78.5 Hyperlipidemia, unspecified; I10 Essential (primary) hypertension; E87.1 Hypo-osmolality and hyponatremia; G47.33 Obstructive sleep apnea (adult) (pediatric); Z20.822 Contact with and (suspected) exposure to COVID-19; Z85.46 Personal history of malignant neoplasm of prostate; Z87.891 Personal history of nicotine dependence; Z95.5 Presence of coronary angioplasty implant and graft; Z79.02 Long term (current) use of antithrombotics/antiplatelets; Z79.899 Other long term (current) drug therapy
CPT/HCPCS: 96376; 96365; 96372; 96375; 99285; 36415; 94640 ×4; 94760; 93005; 80053 ×2; 83605; 83735; 85025 ×2; 85610; 85730; 87040; 83036; 84145; 87636; 71046; G0378 ×2; J2920; J2930; J0696

== ENCOUNTER → 2023-09-27 | Outpatient (CLI) | payer MEDICARE ==
[2023-09-27 15:24] LABS: Partial Thromboplastin Time 22.1 sec (22.0-30.0)
[2023-09-27 20:19] LABS: Appearance,Urine Clear (Clear); Bilirubin,Urine Negative (Negative); Blood,Urine Negative (Negative); Color,Urine Yellow (Yellow); Ketones,Urine Negative (Negative); Nitrite,Urine Negative (Negative); PH, Urine 5.5; Specific Gravity,Urine 1.012 (1.001-1.030); Urobilinogen,Urine 0.2 E.U./DL
[2023-09-27 21:05] LABS: Blood Urea Nitrogen 14.8 mg/dL (9.0-27.0); Carbon Dioxide 22.3 mmol/L (21.6-31.8); Chloride 102 mmol/L (96-109); Glucose 92 mg/dL (70-110); Potassium 4.1 mmol/L (3.5-5.5); Sodium 138 mmol/L (135-145)
[2023-09-27 21:07] LABS: Basophils # (A) 0.02 X 10*3/uL (0.00-0.10); Basophils % (A) 0.3 %; Eosinophils # (A) 0.06 X 10*3/uL (0.04-0.35); HCT 41.6 % (39.6-50.0); HGB 13.5 g/dL (13.0-17.0); Lymphocytes # (A) 0.47 X 10*3/uL (0.90-5.00); Lymphocytes % (A) 7.6 %; MCH 29.8 pg (27.0-32.0); MCHC 32.5 g/dL (32.0-37.0); MCV 91.8 FL (80.0-97.0); Mean Platelet Volume 10.3 FL (9.5-12.2); Monocytes # (A) 0.44 X 10*3/uL (0.20-1.00); Monocytes % (A) 7.1 %; NRBC Per 100 WBC 0 X 10*3/uL (0.00-0.01); Neutrophils # (A) 5.14 X 10*3/uL (1.80-7.70); Neutrophils % (A) 82.9 %; Platelet Count 213 X 10*3/uL (140-440); RBC 4.53 X 10*6/uL (4.40-5.60); RDW 16.5 % (11.5-14.5)
[2023-09-28 03:00] LABS: INR 1.1 (<1.2); Prothrombin Time 11.6 sec (10.0-12.5)
== END | disposition home or self-care (01) ==
LOC: LABPAT 14:46
PROVIDERS: ATTEND Thoracic Surgery (Cardiothoracic Vascular Surgery)
DX: Z01.812 Encounter for preprocedural laboratory examination (principal); C34.90 Malignant neoplasm of unspecified part of unspecified bronchus or lung; Z79.899 Other long term (current) drug therapy
CPT/HCPCS: 80051; 81003; 82565; 82947; 84520; 85025; 85610; 85730; 86850; 86900; 86901; 87086

== ENCOUNTER 2023-09-29 05:39 | Inpatient (IN) | payer MEDICARE ==
[2023-09-26 13:26] VITALS: BMI 30.9
[2023-09-29] MEDS ORDERED: ONDANSETRON 4 MG/2 ML VIAL IVP ONE (05:48)
[2023-09-29] MEDS ORDERED: LACTATED RINGERS 1,000 ML IV SCH (05:48)
[2023-09-29 06:26] LABS: Glucose,Whole Blood 93 mg/dL (70-110)
[2023-09-29] MEDS ORDERED: fentaNYL (PF) 50 MCG/ML 2 ML AMP IVP ONE (06:58)
[2023-09-29] MEDS ORDERED: MIDAZOLAM 2 MG/2 ML VIAL IVP ONE (06:58)
[2023-09-29] MEDS ORDERED: MIDAZOLAM 2 MG/2 ML VIAL IV PRN (07:00)
[2023-09-29] MEDS ORDERED: HYDROmorphone 0.5 MG/0.5 ML SYRINGE IVP PRN ×2 (07:00→15:58)
[2023-09-29] MEDS ORDERED: NEOSTIGMINE 1 MG/ML 10 ML VIAL ONE (07:29)
[2023-09-29] MEDS ORDERED: ACETAMINOPHEN IV (For NPO) 1,000 MG/100 ML VIAL ONE (07:29)
[2023-09-29] MEDS ORDERED: MIDAZOLAM 2 MG/2 ML VIAL ONE (07:29)
[2023-09-29] MEDS ORDERED: ROPIVACAINE 5 MG/ML 30 ML VIAL ONE (07:29)
[2023-09-29] MEDS ORDERED: KETAMINE 10 MG/ML 20 ML VIAL ONE (07:29)
[2023-09-29] MEDS ORDERED: PHENYLEPHRINE-0.9% NACL SYG 1,000 MCG/10 ML SYRINGE ONE (07:29)
[2023-09-29] MEDS ORDERED: fentaNYL (PF) 50 MCG/ML 2 ML AMP ONE (07:29)
[2023-09-29] MEDS ORDERED: SUCCINYLCHOLINE CHLORIDE 200 MG/10 ML VIAL IV ONE (07:29)
[2023-09-29] MEDS ORDERED: GLYCOPYRROLATE 0.2 MG/ML 2 ML VIAL ONE (07:29)
[2023-09-29] MEDS ORDERED: ALBUTEROL INHALER 60 PUFF/8 GM INHALER (MHU) INHALATION ONE (07:29)
[2023-09-29] MEDS ORDERED: PHENYLEPHRINE 10 MG/ML VIAL ONE (07:29)
[2023-09-29] MEDS ORDERED: ROCURONIUM 10 MG/ML (5 ML VIAL) IV ONE (07:29)
[2023-09-29] MEDS ORDERED: PROPOFOL 10 MG/ML 20 ML VIAL IV ONE (07:29)
[2023-09-29] MEDS ORDERED: ALBUMIN HUMAN 5% (25gm) 500 ML VIAL IVPB ONE (07:29)
[2023-09-29] MEDS ORDERED: BUPIVACAINE (PF) 0.5% 30 ML VIAL SQ ONE (08:24)
--- NOTE | 2023-09-29 10:56 | P.ANPRN ---
Procedure Note - Anesthesia - Nerve Block Performed Right Erector Spinae Single Time Out Performed: Yes ([id number]) Date of Procedure: 09/29/23 Procedure Start Time: 06:58 Procedure Stop Time: 07:03 Location of Patient: PreOp Indication: Acute Post-Operative Pain, Requested by Surgeon Specifically requested for management of pain by DrMisti: Curtis Stanley Sedation Type: Sedate with meaningful contact maintained Preparation: Sterile Prep Position: Supine Catheter: None Needle Types: Pajunk Needle Gauge: 21 Ultrasound used to visualize needle placement: Yes Ultrasound used to observe medication spread: Yes Injectate: 0.5% Ropivacaine (see comment for volume) (30cc) Blood Aspirated: No Pain Paresthesia on Injection Noted: No Resistance on Injection: Normal Image Stored and Saved: Yes Events: Uneventful and Well Tolerated
[2023-09-29] MEDS ORDERED: LACTATED RINGERS 1,000 ML IV ONE ×2 (11:04→12:06)
[2023-09-29] MEDS ORDERED: NITROGLYCERIN SL TABS 0.4 MG TAB SUBLINGUAL PRN (13:44)
[2023-09-29] MEDS ORDERED: DEXTROSE 5%-0.45% NACL 1,000 ML IV SCH (13:44)
[2023-09-29] MEDS ORDERED: COLCHICINE 0.6 MG EACH PO PRN (13:44)
[2023-09-29] MEDS ORDERED: IPRATROPIUM-ALBUTEROL 3 ML NEB IH PRN (13:44)
[2023-09-29] MEDS ORDERED: bisacodyL 10 MG SUPP RECTAL PRN (13:44)
--- NOTE | 2023-09-29 14:01 | XR ---
EXAMINATION TYPE: XR chest 1V portable DATE OF EXAM: 09/29/2023 COMPARISON: 09/17/2023 INDICATION: Post lobectomy TECHNIQUE: Single frontal view of the chest is obtained. FINDINGS: The heart size is normal. The pulmonary vasculature is normal. Mild left lower lobe infiltrate may be present. Right lung volume is diminished. Two right chest tubes are present. No pneumothorax is evident. IMPRESSION: 1. Post lobectomy right lung. No pneumothorax evident. Right-sided chest tubes are evident.
--- NOTE | 2023-09-29 14:19 | P.OP ---
Date of Procedure: 09/29/23 Preoperative Diagnosis: Hemoptysis, squamous cell carcinoma right lower lobe Postoperative Diagnosis: Same Procedure(s) Performed: Right robotic-assisted thoracoscopy, right thoracotomy with right lower lobectomy and mediastinal lymph node dissection. Cryoablation of intercostal nerves 3 through 10 Anesthesia: CHRIS Surgeon: Curtis Stanley [employer] #1: Alejandro Marquez [employer]2: Kojo Powers Estimated Blood Loss (ml): 2,500 IV fluids (ml): 3,000 Urine output (ml): 300 Pathology: other (Right lower lobe with frozen section of bronchial margin; lymph nodes from stations R4, R8, R9, R 11, R 12, level 7) Condition: stable Disposition: PACU Indications for Procedure: 81-year-old male initially presented with pneumonia. He was found to have a large right lower lobe mass. Workup revealed no evidence of lymphadenopathy by CT. PET scan was negative for metastasis and positive for uptake in the primary tumor. Bronchoscopy demonstrated non-small cell carcinoma consistent with squamous cell carcinoma. EBUS was negative for metastatic disease. The patient had persistent hemoptysis following his bronchoscopy. He was on Plavix and was recommended to discontinue this if she did not do. He was referred to me and I saw him in the office a week ago. He was continuing to hemoptysis size. I was concerned about the risk of ongoing hemoptysis and possibility of exsanguinating bleeding. Recommended to the patient that he discontinue his Plavix which he did not do. We set up a referral to see Dr. Shoaib Kuhn his head golf professional for medical clearance following day which he did not keep area did see Dr. Brito the following day Dr. Aiken contacted me to discuss neoadjuvant therapy. Discussion focused on the fact that the patient was continuing to hemoptysis s ize of the probably just needed to go to surgery. We agreed on this. I asked Dr. Aiken the patient stopped his Plavix and he stated he hadn't. I asked Dr. Aiken to asked the patient to stop his Plavix. I then contacted Dr. Kuhn who rescheduled the patient's appointment for Tuesday morning. I also michelle Kuhn did tell the patient to stop his Plavix. Dr. Kuhn saw the patient on Tuesday and cleared him for surgery from a Cardiologic perspective. Patient states he took his last dose of Plavix on Tuesday. Concerned about the possibility of bleeding given the ongoing hemoptysis which continued after discontinuing the Plavix I felt the best thing was to proceed with surgery. Operative Findings: Pleural space had some adhesions particularly inferiorly toward the diaphragm. The fissures were incomplete. The tumor was very large and situated near the greater fissure posteriorly. There was a lot of inflammatory change in this region. Separation of the fissure particularly posteriorly was very difficult. There was quite a bit of anthracotic adenopathy present. The entire hilum was highly vascular and we struggled with a lot of woozy bleeding. Lung tissue itself was pink but very poorly compliant and we had difficulty obtaining complete atelectasis of the lung. This combined with the large size of the tumor made exposure of the hilum quite challenging thoracoscopically. On completion of the lobectomy, the lower lobe was very large and quite dense from hemorrhage within it from the ongoing hemoptysis. The tumor was also very la rge. It was somewhat difficult to remove the specimen even through full lateral thoracotomy due to its size. Description of Procedure: Is brought to the operating room and placed supine on the operating table. Gen. anesthesia was induced and a double-lumen endotracheal tube was placed. This was positioned with fiberoptic bronchoscopy. No endobronchial lesions were not ed. There was some old blood present particularly on the right side. Tube was secured and the patient was turned in left lateral decubitus position and appropriately positioned for robotic lobectomy. Right chest was sterilely prepped and draped. Single lung ventilation was initiated. Initial incision was made in the ninth interspace in the anterior axillary line and an 8 mm robotic port was placed. After confirming presence in the pleural space CO2 insufflation was begun. A 12 mm robotic port was placed posterior and anterior to this initial port and a second 8 mm port was placed further posterior and more superiorly. Working port was placed at the level of the diaphragm. Chest was explored and the adhesions were taken down with electrocautery. The fissures were explored and dissection was carried out in the greater fissure anteriorly. We really could not work in the greater fissure posteriorly due to the dense adhesions from the adjacent tumor. Inferior pulmonary ligament was taken down and dissection continued posteriorly behind the inferior pulmonary vein up to the level of the sheila. R9, R8 and level 7 lymph nodes were resected. Dissection was carried onto the bronchus. We now encircled the inferior pulmonary vein and ligated and divided it with a robotic vascular stapler. Dissection was carried onto the bronchus and the bifurcation between the lower lobe bronchus and middle lobe bronchus was identified. R 11 lymph nodes were harvested from this region. We carried our dissection back proximally on the bronchus intermedius and identified the takeoff of the upper lobe bronchus from that. The lower lobe superior segmental pulmonary artery branch was noted here. R 11 lymph nodes were resected in this area and the superior segmental pulmonary artery branch was divided and ligated with a robotic stapler. We now endeavored to encircle the left lower lobe bronchus. The dissection was quite difficult and we carried the dissection distally and encircled the basal segmental bronchi first and then the superior segment bronchus was encircled. R 12 lymph nodes between these segmental bronchial were resected. Then carried our dissection proximally onto the left lower lobe main bronchus and were able to encircle it but unable to pass a stapler. There appeared to be a large number of lymph nodes posteriorly which were fairly densely adherent and making the dissection very difficult. He started having increased bleeding although nothing severe and it was decided the safest thing at this point would be to open. After assuring good hemostasis, robot was undocked and a lateral thoracotomy incision was performed. We initially opened in the seventh interspace profoundly exposure to be inadequate and enlarged our incision somewhat to allow us to get the fifth interspace. We then entered the fifth interspace and undercut the intercostals anteriorly and posteriorly and spread the ribs. We carried our dissection in the anterior greater fissure proximally and were able to reach the lower lobe pulmonary artery. We dissected this out but had very difficult exposure for placing a stapler. This point we re-encircled the lower lobe bronchus and divided it with a single firing of a Endo PEYTON medium thick stapler. Dissection was carried back onto the pulmonary artery and we were able to get a TA-30 stapler across it ligating it proximally and then ligating the branches distally however upon completing this we had a small tear on the back side of the pulmonary artery proved very difficult to repair. We ultimately were able to get a clamp across the pulmonary artery proximal to where the tear was in re-stapled pulmonary artery with resultant good hemostasis. We were now able to connect from anterior to posterior posteriorly and complete the fissures with multiple firings of Endo PEYTON staplers. Lobectomy specimen was removed and sent for frozen section of the bronchial margin which returned negative. We examined the hilum and saw no other lymph nodes needing resection. We carried our dissection to the superior mediastinum and resected the R4 lymph nodes. Inflated the lung under water and noted some air leak from the posterior aspect of the middle lobe where the greater fissure had been taken down with electrocautery. This was oversewn with a 4-0 Prolene suture. Was no evidence of air leak from the bronchial stump. 236-Frisian chest tubes were placed through the 2 most anterior robotic ports. More anterior tube was a right angle tube which was placed along the diaphragm and the more posterior tube was directed posteriorly toward the apex. These were secured with 0 Ethibond sutures. Cryoablation of the intercostal nerves was performed with the AtriCure Endo ice system. We cryoablated levels 3 through 10. We again checked for hemostasis and again reinflated the lung. Both lobes were noted to inflate well. The ribs were reapproximated with #1 Vicryl and the muscle layers closed with 0 Vicryl. Cutaneous tissues were closed with 2-0 Vicryl and the skin with 3-0 Vicryl subcuticular stitches. The 3 remaining robotic incisions were closed with layers of Vicryl suture. Skin glue and dry sterile dressings were applied. Chest tubes were connected to Pleur-evac. The patient was extubated and transferred to recovery in stable condition. Did receive 2 units of packed red blood cells and 1 unit of fresh frozen plasma.
[2023-09-29 14:41] LABS: Glucose,Whole Blood 169 mg/dL (70-110)
[2023-09-29] MEDS: IPRATROPIUM-ALBUTEROL 3 ML NEB INHALATION SCH ×3 (14:41→21:43)
[2023-09-29 14:56] LABS: Glucose,Whole Blood 166 mg/dL (70-110)
[2023-09-29] MEDS: KETOROLAC 15 MG/ML 1 ML VIAL IVP SCH ×3 (14:58→23:37)
[2023-09-29] MEDS: HEPARIN SODIUM,PORCINE 5,000 UNIT/ML 1 ML VIAL SQ SCH ×2 (16:02→23:38)
[2023-09-29] MEDS: amLODIPine 5 MG TAB PO SCH ×2 (16:03→18:21)
--- NOTE | 2023-09-29 16:20 | P.CNPUL ---
History of Present Illness Consult date: 09/29/23 Reason for consult: other (Postoperative ICU management) Chief complaint: Status post right lower lobectomy and mediastinal node dissection History of present illness: This is an 83-year-old white male, recently discovered to have a large right lower lobe mass, PET scan was positive for uptake in the primary tumor but not in the lymph nodes. Bronchoscopy by Dr. 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 EBUS was negative for metastatic disease. Patient has been experiencing persistent hemoptysis following his bronchoscopy. Patient was eventually referred to Dr. Stanley, and considering his persistent hemoptysis, patient underwent today right robotic assisted thoracoscopy, right thoracotomy, and right lower lobectomy and mediastinal lymph node dissection. He also went cryoablation of intercostal nerves III through X. Postoperatively patient was admitted to the ICU, and I was asked to see about consultation. In the ICU, patient was noted to be very comfortable in no distress, however his blood pressure is running high at 177/59. Chest x-ray postoperatively showed post lobectomy right lung no pneumothorax, and right-sided chest tubes are evident patient had intermittent cough but no hemoptysis no fever no chills. Has some vague chest wall discomfort at the surgical site Review of Systems CONSTITUTIONAL: Admits a 35 pound weight loss over the last year, however, recently started a GLP1. Denies fevers. EYES: Denies change in vision. EARS, NOSE, MOUTH, THROAT: Denies headaches, denies sore throat. CARDIOVASCULAR: Denies chest pain, palpitations or syncopal episodes. RESPIRATORY: As noted in HPI with recurrent hemoptysis since he had bronchoscopy and biopsy GASTROINTESTINAL: Denies change in appetite, abdominal pain, nausea and vomiting, or diarrhea. Admits burping and heartburn GENITOURINARY: Denies hematuria, denies infections. MUSKULOSKELETAL: Denies pain, denies swelling. INTEGUMENTARY: Denies rash, denies eczema. NEUROLOGICAL: Denies recent memory loss, no recent seizure activity. PSYCHIATRIC: Denies anxiety, denies depression. HEMATOLOGIC/LYMPHATIC: Denies anemia, denies enlarged lymph nodes Past Medical History Past Medical History: Atrial Fibrillation, Coronary Artery Disease (CAD), Cancer, Eye Disorder, GI Bleed, Hyperlipidemia, Hypertension, Pneumonia, Skin Disorder, Sleep Apnea/CPAP/BIPAP, Vascular Disorder Additional Past Medical History / Comment(s): Recent dx of lung CA Aug 2023,Recent dx of pneumonia Sep 2023, recent dx hemoptysis-post bronchoscopy- Sep 2023, pt states he is still coughing up blood but "It's a lot less.", back pain-increased pain with walking,Vertigo, hiatal hernia, gout, eczema, bleeds easily,uses cpap, history of prostate cancer, cataract lt eye, "I have circulation issues with my legs." "My 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 REPAIR BICEP TENDON LT ARM. RT CATARACT. STENTS X2. cyst removed from under chin, prostate surgery with 44 radiation txs, Watchman procedure. Past Anesthesia/Blood Transfusion Reactions: Previous Problems w/ Anesthesia Additional Past Anesthesia/Blood Transfusion Reaction / Comment(s): DEVELOPED AFIB AFTER CATARACT SURG 2013. No hx of blood transfusions. Date of Last Stent Placement:: 2013 Smoking Status: Former smoker - Past Family History Mother Family Medical History: Coronary Artery Disease (CAD), Myocardial Infarction ([place]) Additional Family Medical History / Comment(s): from myocardial infarction at 69 years old Father Family Medical History: Coronary Artery Disease (CAD), Myocardial Infarction ([place]) Additional Family Medical History / Comment(s): from myocardial infarction at 69 years old Medications and Allergies Home Medications Medication Instructions Recorded Confirmed Type lisinopriL [Prinivil] 10 mg PO BID 07/15/14 09/29/23 History Clopidogrel Bisulfate [Plavix] 75 mg PO DAILY 09/03/17 09/26/23 History Isosorbide Mononitrate ER [Imdur] 60 mg PO DAILY 09/03/17 09/29/23 History Nitroglycerin Sl Tabs [Nitrostat] 0.4 mg SUBLINGUAL Q5M PRN 09/03/17 09/26/23 History Ranolazine [Ranexa] 500 mg PO BID 09/03/17 09/29/23 History Albuterol Nebulized [Ventolin 1.25 mg INHALATION RT-Q6H PRN 08/30/23 09/29/23 History Nebulized (Accuneb)] Colchicine 0.6 mg PO DAILY PRN 08/30/23 09/29/23 History Mv-Min/Folic/K1/Lycopen/Lutein 1 tab PO DAILY 08/30/23 09/29/23 History [Centrum Silver Men Tablet] Omeprazole 40 mg PO HS 08/30/23 09/29/23 History Tirzepatide [Mounjaro] 10 mg SQ TU 08/30/23 09/26/23 History allopurinoL [Zyloprim] 300 mg PO DAILY 08/30/23 09/29/23 History Fluticasone/Umeclidin/Vilanter 1 puff INHALATION RT-DAILY 09/18/23 09/29/23 History [Trelegy Ellipta 100-62.5-25] Ibuprofen [Motrin] 800 mg PO Q8H PRN 09/26/23 09/26/23 History Allergies Allergy/AdvReac Type Severity Reaction Status Date / Time cortisone [Cortisone] Allergy Swelling Verified 09/29/23 06:13 and itching surgical tape Allergy "Broke Uncoded 09/29/23 06:13 out" "Got infection" Physical Exam Vitals: Vital Signs Temp Pulse Pulse Pulse Resp BP BP 09/29/23 15:37 82 09/29/23 15:24 74 09/29/23 14:17 62 16 177/59 134/60 09/29/23 14:00 59 L 16 177/58 151/63 09/29/23 13:41 62 16 124/62 09/29/23 13:26 97.3 F L 65 12 157/57 09/29/23 07:05 79 17 127/59 09/29/23 06:01 98.4 F 87 20 154/70 Pulse Ox 09/29/23 15:37 09/29/23 15:24 09/29/23 14:17 100 09/29/23 14:00 100 09/29/23 13:41 100 09/29/23 13:26 99 09/29/23 07:05 94 L 09/29/23 06:01 96 Intake and Output 09/29/23 09/29/23 09/29/23 06:59 14:59 22:59 Intake Total 400 3567 Output Total 2900 Balance 400 667 Intake: IV 400 2550 Blood Product 1017 Ffp 24 Pher Acda Cnt1 199 Unit [id number] Ffp 24 Pher Acda Cnt1 198 Unit [id number] Rc As-1 Unit 310 [id number] Rc Irr As1 Unit 310 [id number] Output: Urine 400 Estimated Blood Loss 2500 Other: Weight 117.4 kg GENERAL EXAM: Alert, 83-year-old white male, comfortable in no apparent distress. On 3 L nasal cannula HEAD: Normocephalic and atraumatic EYES: Normal reaction of pupils, equal size. NOSE: Clear with pink turbinates. THROAT: No erythema or exudates. NECK: No masses, no JVD. CHEST: No chest wall deformity. LUNGS: Good breath sounds bilaterally, right-sided chest tube noted with Pleur- evac CVS: S1 and S2 normal with no audible murmur, irregular rhythm. No extra heart sounds ABDOMEN: No hepatosplenomegaly, active bowel sounds, no guarding or rigidity. SPINE: No scoliosis or deformity SKIN: No rashes CENTRAL NERVOUS SYSTEM: No focal deficits, tone is normal in all 4 extremities. EXTREMITIES: There is no peripheral edema, clubbing, or cyanosis. Peripheral pulses are intact. Results - Laboratory Findings Abnormal lab findings: Abnormal Labs 09/27/23 09/29/23 09/29/23 14:55 14:39 14:55 POC Glucose (mg/dL) 169 H 166 H Crossmatch See Detail - Diagnostic Findings Chest x-ray: image reviewed (As noted in HPI) Assessment and Plan Assessment: Impression: Status post right robotic-assisted thoracoscopy, right thoracotomy with right lower lobectomy and mediastinal lymph node dissection. Cryoablation of intercostal nerves 3 through 10, postoperative day #1. Squamous cell lung cancer recently diagnosed, but no evidence of positive lymph node based on recent bronchoscopy/EBUS Persistent post bronchoscopy hemoptysis Benign essential hypertension, patient will be placed on amlodipine 5 mg daily and resume home meds Paroxysmal atrial fibrillation Hyperlipidemia Coronary artery disease, with prior stents History of GI bleed while on Xarelto GERD Obstructive sleep apnea with home CPAP Recommendation: Need to monitor in the ICU Continue incentive spirometry Bronchodilators Early ambulation Resume home meds Daily x-rays of the chest GI and DVT prophylaxis Will continue to follow Time with Patient: Greater than 30
[2023-09-29] MEDS: PANTOPRAZOLE 40 MG TABLET PO SCH (20:44)
[2023-09-29] MEDS: lisinopriL 10 MG TAB PO SCH (20:44)
[2023-09-29] MEDS: guaiFENesin 600 MG TABLET.ER PO SCH (20:44)
[2023-09-29] MEDS: RANOLAZINE 500 MG TAB.ER.12H PO SCH (20:44)
[2023-09-29] MEDS: traMADol 50 MG TAB PO PRN (22:11)
[2023-09-30] MEDS: ACETAMINOPHEN TAB 325 MG TAB PO PRN (01:00)
[2023-09-30 05:15] LABS: Anisocytosis Slight; Basophils # (A) 0.1 k/uL (0-0.2); Basophils % (A) 1 %; Eosinophils % (A) 0 %; HCT 29.1 % (39.0-53.0); Lymphocytes # (A) 0.2 k/uL (1.0-4.8); Lymphocytes % (A) 2 %; MCH 30.7 pg (25.0-35.0); Mean Platelet Volume 9.2; Monocytes # (A) 0.5 k/uL (0-1.0); Monocytes % (A) 4 %; Neutrophils # (A) 10.3 k/uL (1.3-7.7); Neutrophils % (A) 92 %; Platelet Count 169 k/uL (150-450); Poikilocytosis Slight; RBC 3.31 m/uL (4.30-5.90); RDW 16.9 % (11.5-15.5); WBC 11.3 k/uL (3.8-10.6)
[2023-09-30 05:24] LABS: African American GFR (CKD) 68 (>60 ml/min/1.73 sqM); Anion Gap 8 mmol/L; Blood Urea Nitrogen 21 mg/dL (9-20); Calcium 8.2 mg/dL (8.4-10.2); Carbon Dioxide 21 mmol/L (22-30); Chloride 107 mmol/L (98-107); Glucose 167 mg/dL (74-99); Non-African American GFR(CKD) 59 (>60 ml/min/1.73 sqM); Potassium 4.1 mmol/L (3.5-5.1); Sodium 136 mmol/L (137-145)
[2023-09-30 05:42] LABS: HGB 10.2 gm/dL (13.0-17.5); MCV 87.8 fL (80.0-100.0)
[2023-09-30] MEDS: KETOROLAC 15 MG/ML 1 ML VIAL IVP SCH ×3 (06:14→20:44)
--- NOTE | 2023-09-30 06:37 | CONS ---
CONSULTATION HISTORY OF PRESENT ILLNESS: This is an 83-year-old white male, consult, in ICU status post Dr. 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 EBUS was negative for metastatic disease. Hemoptysis following his bronchoscopy. He underwent today right robotic assisted thoracoscopy, right thoracotomy, right lower lobectomy, lymph node dissection, cryoablation recalcitrant nerves 3 through 10. He was admitted to ICU. He is very comfortable, no distress. Blood pressure 177/59. Chest x-ray postoperatively shows , no pneumothorax. Chest tubes are patent. REVIEW OF SYSTEMS: A 14-point review of systems is positive for a 55-pound weight loss recently, status post bronchoscopy, history of COPD, metastatic prostate cancer. No memory loss. No anxiety or depression, just generalized weakness. PAST MEDICAL HISTORY: Atrial fibrillation, coronary artery disease, dyslipidemia, hypertension, pneumonia, skin disorder, sleep apnea, vascular disorder. PAST SURGICAL HISTORY: Cholecystectomy, heart catheterization with stent, orthopedic surgery, prostate surgery, he had ORIF repairs. FAMILY HISTORY: Mother with myocardial infarction, coronary artery disease. Father, coronary artery disease, myocardial infarction. MEDICATIONS: Reviewed. ALLERGIES: Cortisone, surgical tape. PHYSICAL EXAMINATION: VITAL SIGNS: Temperature 97 to 98, pulse 18 to 20, respiratory rate 16 to 20, blood pressure 120s to 150s over 70s. CARDIOVASCULAR: S1, S2. LUNGS: Decreased breath sounds x4, scattered wheeze. HEMATOLOGY: 2 to 3+ edema. GI: Soft, distended, obesity. HEENT: Pupils equal, round, reactive. External ear canals within normal limits. NECK: Supple, no mass. PLAN: Status post right robotic assisted thoracoscopy, right thoracotomy with right lower lobe lobectomy, mediastinal lymph node dissection, cryoablation of intercostal nerves 3 through 10, squamous cell lung cancer, persistent post bronchoscopy, hemoptysis, benign hypertension, paroxysmal atrial fib, dyslipidemia, coronary artery disease, on Xarelto for GERD and atrial fibrillation. Continue his breathing treatments. Review home medications, watch closely blood pressure control. Prognosis guarded. MMODL / IJN: [id number] /
[2023-09-30] MEDS ORDERED: MAGNESIUM HYDROXIDE 2,400 MG/30 ML CUP PO PRN (07:28)
--- NOTE | 2023-09-30 07:48 | P.PN ---
Subjective Progress Note Date: 09/30/23 Principal diagnosis: Squamous cell carcinoma right lower lobe, hemoptysis. Previous medical history of chronic cough with hemoptysis since lung biopsy, coronary artery disease with PCI maintained on Plavix, chronic persistent atrial fibrillation with failed cardioversion attempt, hypertension, hyperlipidemia, prostate cancer, previous tobacco dependence, and obstructive sleep apnea on home CPAP use POD #1 right robotic assisted thoracoscopy, conversion to right thoracotomy with right lower lobectomy and mediastinal lymph node dissection, cryoablation of intercostal nerves 3-10 The patient was seen and examined this morning sitting up in recliner in the intensive care unit in no acute distress. States he had a rough night with pain and breathing, however much better controlled this morning and the patient states he feels more comfortable. Remains in controlled atrial fibrillation, hemodynamically stable, currently on room air with oxygen saturation in the mid to high 90s and able to achieve 1500 mL on his incentive spirometry. Labs, chest x-ray reviewed. Anterior and posterior right-sided pleural chest tubes remain present to wall suction, anterior chest tube with 800 mL serosanguineous fluid since surgery and tiny intermittent air leak with forceful coughing, posterior chest tube with 85 mL serosanguineous drainage since surgery and no airleak present. No other new concerns. Objective - Vital Signs Vital signs: Vital Signs Temp 98.0 F 09/30/23 04:00 Pulse 90 09/30/23 07:00 Resp 24 09/30/23 07:00 BP 102/46 09/30/23 07:00 Pulse Ox 97 09/30/23 07:00 FiO2 Intake & Output 09/29/23 09/30/23 09/30/23 18:59 06:59 18:59 Intake Total 3817 848 50 Output Total 3496 896 0 Balance 321 -48 50 Weight 118 kg Intake: IV 2800 600 50 Dextrose 5%-0.45% NaCl 1, 200 600 50 000 ml @ 50 mls/hr IV . Q20H [facility] Rx#:[id number] ceFAZolin 2 gm In Sodium 50 Chloride 0.9% 50 ml @ 100 mls/hr IVPB Q8HR XIMENA Rx# :[id number] Blood Product 1017 248 Ffp 24 Pher Acda Cnt1 199 Unit [id number] Ffp 24 Pher Acda Cnt1 198 Unit [id number] Platelet Pheresis Pas 0 248 Psoralen Unit [id number] Rc As-1 Unit 310 [id number] Rc Irr As1 Unit 310 [id number] Output: Chest Tube Drainage 471 441 0 Right Anterior Chest 436 360 0 Right Posterior Chest 35 81 0 Urine 525 455 Estimated Blood Loss 2500 Other: Voiding Method Indwelling Catheter Indwelling Catheter ABP, PAP, CO, CI - Last Documented Arterial Blood Pressure 120/43 - Exam CONSTITUTIONAL: Appears comfortable, cooperative, no acute distress RESPIRATORY: Lungs sounds diminished bilaterally. Respirations even, nonlabored. Currently on room air with oxygen saturation 99%. Able to achieve 1500 mL on incentive spirometry. Strong cough. CARDIOVASCULAR: S1, S2 present. Irregular rate and rhythm, controlled atrial fibrillation on telemetry. Palpable peripheral pulses bilaterally. No edema present. No calf pain or tenderness noted. SCDs present. GASTROINTESTINAL: Abdomen soft, nontender, nondistended. Active bowel sounds present 4 quadrants. Tolerating diet. Positive belching, denies flatus GENITOURINARY: Garcia present draining clear, yellow urine. Output 30-45 mL/h overnight INTEGUMENTARY: Skin is warm and dry with evidence of good perfusion. Thoracic incision well approximated and covered with dry intact dressing. NEUROLOGIC: Cranial nerves II through XII intact MUSKULOSKELETAL: Able to move all extremities, strength equal bilaterally, gait normal PSYCHIATRIC: Alert and oriented to person place and time, appropriate affect, intact judgment and insight INVASIVE LINES AND TUBES: Right anterior and posterior pleural chest tubes present and connected to wall suction, tiny intermittent air leak present in anterior chest tube, no air leak present in posterior chest tube. Right anterior tube with 120 mL serosanguineous drainage overnight, 800 mL since surgery. Right posterior pleural chest tube with 20 mL serosanguineous drainage overnight, 85 mL since surgery - Allied health notes Allied health notes reviewed: nursing - Labs CBC & Chem 7: 09/30/23 05:00 09/30/23 05:00 Labs: Abnormal Lab Results - Last 24 Hours (Table) 09/27/23 09/29/23 09/29/23 Range/Units 14:55 14:39 14:55 WBC (3.8-10.6) k/uL RBC (4.30-5.90) m/uL Hgb (13.0-17.5) gm/dL Hct (39.0-53.0) % RDW (11.5-15.5) % Neutrophils # (1.3-7.7) k/uL Lymphocytes # (1.0-4.8) k/uL Sodium (137-145) mmol/L Carbon Dioxide (22-30) mmol/L BUN (9-20) mg/dL Glucose (74-99) mg/dL POC Glucose (mg/dL) 169 H 166 H (70-110) mg/dL Calcium (8.4-10.2) mg/dL Crossmatch See Detail 09/30/23 09/30/23 Range/Units 05:00 05:00 WBC 11.3 H (3.8-10.6) k/uL RBC 3.31 L (4.30-5.90) m/uL Hgb 10.2 L D (13.0-17.5) gm/dL Hct 29.1 L (39.0-53.0) % RDW 16.9 H (11.5-15.5) % Neutrophils # 10.3 H (1.3-7.7) k/uL Lymphocytes # 0.2 L (1.0-4.8) k/uL Sodium 136 L (137-145) mmol/L Carbon Dioxide 21 L (22-30) mmol/L BUN 21 H (9-20) mg/dL Glucose 167 H (74-99) mg/dL POC Glucose (mg/dL) (70-110) mg/dL Calcium 8.2 L (8.4-10.2) mg/dL Crossmatch - Imaging and Cardiology Chest x-ray: image reviewed Assessment and Plan Assessment: Squamous cell carcinoma right lower lobe, status post right robotic assisted thoracoscopy, conversion to right thoracotomy with right lower lobectomy and mediastinal lymph node dissection History of chronic cough with hemoptysis since lung biopsy Coronary artery disease with PCI maintained on Plavix Chronic persistent atrial fibrillation with failed cardioversion attempt Hypertension Hyperlipidemia Prostate cancer Previous tobacco dependence Obstructive sleep apnea on home CPAP use Plan: Place chest tubes to water seal, monitor for airleak resolution as well as drainage. Likely will DC tomorrow Encourage incentive spirometry use 10 times every hour while awake, pulmonary hygiene. Continue bronchodilators, Mucomyst Increase activity, ambulate as tolerated, PT/OT consulted Will monitor daily labs and x-rays GI/DVT prophylaxis Home medications ordered, hold Plavix until after chest tube removal Pain control with current medication regimen Discontinue Garcia catheter. May bladder scan and straight cath for greater than 300 mL residual Hep-Lock IV Will place transfer orders for 3 S. cardiac stepdown unit, may transfer when bed available More recommendations to follow
[2023-09-30] MEDS: IPRATROPIUM-ALBUTEROL 3 ML NEB INHALATION SCH ×4 (08:04→21:32)
[2023-09-30] MEDS: ACETYLCYSTEINE 800 MG/4 ML VIAL INHALATION SCH ×4 (08:04→21:31)
[2023-09-30] MEDS: SYMBICORT 80-4.5 MCG INHALER INHALATION SCH ×2 (08:05→21:31)
--- NOTE | 2023-09-30 08:10 | XR ---
EXAMINATION TYPE: XR chest 1V DATE OF EXAM: 09/30/2023 COMPARISON: 09/29/2023 INDICATION: Post lobectomy TECHNIQUE: Single frontal view of the chest is obtained. FINDINGS: The heart size is enlarged. The pulmonary vasculature is normal. Retrocardiac infiltrate is present with silhouetting of the diaphragm. Right-sided chest tubes are pr esent. No pneumothorax is evident. However, there is increasing subcutaneous air within the right nec k near the insertion site of the chest tubes on the right lower lateral chest. IMPRESSION: 1. No obvious large pneumothorax. However there appears to be increasing subcutaneous air present. Cl ose monitoring is recommended. 2. Retrocardiac atelectasis or pneumonia may be developing. Continued follow-up.
[2023-09-30] MEDS ORDERED: ISOSORBIDE MONONITRATE ER 60 MG TAB.ER.24H PO SCH (09:00)
[2023-09-30] MEDS: traMADol 50 MG TAB PO PRN (09:09)
[2023-09-30] MEDS: MULTIVITAMINS, THERA 1 EACH TAB PO SCH (09:10)
[2023-09-30] MEDS: allopurinoL 300 MG TAB PO SCH (09:10)
[2023-09-30] MEDS: guaiFENesin 600 MG TABLET.ER PO SCH ×2 (09:10→20:44)
[2023-09-30] MEDS: amLODIPine 5 MG TAB PO SCH (09:10)
[2023-09-30] MEDS: SENNOSIDES-DOCUSATE SODIUM 1 EACH TAB PO SCH ×2 (09:11→20:44)
[2023-09-30] MEDS: lisinopriL 10 MG TAB PO SCH ×3 (09:11→20:47)
[2023-09-30] MEDS: HEPARIN SODIUM,PORCINE 5,000 UNIT/ML 1 ML VIAL SQ SCH ×2 (09:11→17:17)
[2023-09-30] MEDS: RANOLAZINE 500 MG TAB.ER.12H PO SCH ×2 (09:36→20:59)
[2023-09-30] MEDS ORDERED: METOPROLOL TARTRATE 12.5 MG TAB PO SCH (11:00)
[2023-09-30] MEDS ORDERED: ALBUMIN HUMAN 5% 500 ML in EMPTY BAG 1 BAG IVPB STA (13:05)
[2023-09-30 14:09] LABS: Anisocytosis Slight; HCT 30.7 % (39.0-53.0); HGB 10.2 gm/dL (13.0-17.5); MCHC 33.2 g/dL (31.0-37.0); MCV 90.5 fL (80.0-100.0); Mean Platelet Volume 9.1; Platelet Count 183 k/uL (150-450); Poikilocytosis Slight; RBC 3.39 m/uL (4.30-5.90); RDW 16.9 % (11.5-15.5); WBC 13.9 k/uL (3.8-10.6)
--- NOTE | 2023-09-30 14:10 | P.PN ---
Subjective Progress Note Date: 09/30/23 Principal diagnosis: POD #1 right robotic assisted thoracoscopy, conversion to right thoracotomy with right lower lobectomy and mediastinal lymph node dissection, cryoablation of i ntercostal nerves 3-10 This is an 83-year-old white male, recently discovered to have a large right lower lobe mass, PET scan was positive for uptake in the primary tumor but not in the lymph nodes. Bronchoscopy by Dr. 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 EBUS was negative for metastatic disease. Patient has been experiencing persistent hemoptysis following his bronchoscopy. Patient was eventually referred to Dr. Stanley, and considering his persistent hemoptysis, patient underwent today right robotic assisted thoracoscopy, right thoracotomy, and right lower lobectomy and mediastinal lymph node dissection. He also went cryoablation of intercostal nerves III through X. Postoperatively patient was admitted to the ICU, and I was asked to see about consultation. In the ICU, patient was noted to be very comfortable in no distress, however his blood pressure is running high at 177/59. Chest x-ray postoperatively showed post lobectomy right lung no pneumothorax, and right-sided chest tubes are evident patient had intermittent cough but no hemoptysis no fever no chills. Has some vague chest wall discomfort at the surgical site Patient was reevaluated today on 09/30/2023, patient remains in the ICU, sitting at the bedside chair, he is now on room air, not in any distress, continues to have 2 chest tubes in the right pleural space, one of them anteriorly drained 800 cc of serosanguineous fluid overnight, and the procedure 1 drained about 100 cc. No airleak noted, hence left chest tubes are on waterseal. Off suction. Patient is achieving over 1000 CC with his incentive spirometry. And most likely the patient will be transferred out of the ICU to a regular medical floor or 3 S. [facility] count is 11.3 hemoglobin is 10.2 basic metabolic profile is normal renal profile is normal creatinine 1.15 Objective - Vital Signs Vital signs: Vital Signs Temp 98.2 F 09/30/23 11:57 Pulse 102 H 09/30/23 12:09 Resp 17 09/30/23 11:57 BP 88/48 09/30/23 11:57 Pulse Ox 99 09/30/23 11:57 FiO2 Intake & Output 09/29/23 09/30/23 09/30/23 18:59 06:59 18:59 Intake Total 3817 848 500 Output Total 3496 896 0 Balance 321 -48 500 Weight 118 kg Intake: IV 2800 600 50 Dextrose 5%-0.45% NaCl 1, 200 600 50 000 ml @ 50 mls/hr IV . Q20H [facility] Rx#:[id number] ceFAZolin 2 gm In Sodium 50 Chloride 0.9% 50 ml @ 100 mls/hr IVPB Q8HR [facility] Rx# :[id number] Oral 450 Blood Product 1017 248 Ffp 24 Pher Acda Cnt1 199 Unit [id number] Ffp 24 Pher Acda Cnt1 198 Unit [id number] Platelet Pheresis Pas 0 248 Psoralen Unit [id number] Rc As-1 Unit 310 [id number] Rc Irr As1 Unit 310 [id number] Output: Chest Tube Drainage 471 441 0 Right Anterior Chest 436 360 0 Right Posterior Chest 35 81 0 Urine 525 455 0 Estimated Blood Loss 2500 Other: Voiding Method Indwelling Catheter Indwelling Catheter ABP, PAP, CO, CI - Last Documented Arterial Blood Pressure 120/43 - Exam GENERAL EXAM: Alert, 83-year-old white male, comfortable in no apparent distress. On room air HEAD: Normocephalic and atraumatic EYES: Normal reaction of pupils, equal size. NOSE: Clear with pink turbinates. THROAT: No erythema or exudates. NECK: No masses, no JVD. CHEST: No chest wall deformity. LUNGS: Good breath sounds bilaterally, 2 right-sided chest tubes were noted. CVS: S1 and S2 normal with no audible murmur, irregular rhythm. No extra heart sounds ABDOMEN: No hepatosplenomegaly, active bowel sounds, no guarding or rigidity. SKIN: No rashes CENTRAL NERVOUS SYSTEM: No focal deficits, tone is normal in all 4 extremities. EXTREMITIES: There is no peripheral edema, clubbing, or cyanosis. Peripheral pulses are intact. - Labs CBC & Chem 7: 09/30/23 05:00 09/30/23 05:00 Labs: Abnormal Lab Results - Last 24 Hours (Table) 09/29/23 09/29/23 09/30/23 Range/Units 14:39 14:55 05:00 WBC 11.3 H (3.8-10.6) k/uL RBC 3.31 L (4.30-5.90) m/uL Hgb 10.2 L D (13.0-17.5) gm/dL Hct 29.1 L (39.0-53.0) % RDW 16.9 H (11.5-15.5) % Neutrophils # 10.3 H (1.3-7.7) k/uL Lymphocytes # 0.2 L (1.0-4.8) k/uL Sodium (137-145) mmol/L Carbon Dioxide (22-30) mmol/L BUN (9-20) mg/dL Glucose (74-99) mg/dL POC Glucose (mg/dL) 169 H 166 H (70-110) mg/dL Calcium (8.4-10.2) mg/dL 09/30/23 Range/Units 05:00 WBC (3.8-10.6) k/uL RBC (4.30-5.90) m/uL Hgb (13.0-17.5) gm/dL Hct (39.0-53.0) % RDW (11.5-15.5) % Neutrophils # (1.3-7.7) k/uL Lymphocytes # (1.0-4.8) k/uL Sodium 136 L (137-145) mmol/L Carbon Dioxide 21 L (22-30) mmol/L BUN 21 H (9-20) mg/dL Glucose 167 H (74-99) mg/dL POC Glucose (mg/dL) (70-110) mg/dL Calcium 8.2 L (8.4-10.2) mg/dL Assessment and Plan Assessment: Impression: Status post right robotic-assisted thoracoscopy, right thoracotomy with right lower lobectomy and mediastinal lymph node dissection. Cryoablation of intercostal nerves 3 through 10, postoperative day #1. Squamous cell lung cancer recently diagnosed, but no evidence of positive lymph node based on recent bronchoscopy/EBUS Persistent post bronchoscopy hemoptysis Benign essential hypertension, patient will be placed on amlodipine 5 mg daily and resume home meds Paroxysmal atrial fibrillation Hyperlipidemia Coronary artery disease, with prior stents History of GI bleed while on Xarelto GERD Obstructive sleep apnea with home CPAP Recommendation: Patient could be transferred to [facility] today. Continue incentive spirometry Chest tube to waterseal, off suction Continue bronchodilators Ambulate Resume home meds Daily x-rays of the chest GI and DVT prophylaxis Will continue to follow Time with Patient: Less than 30
[2023-09-30] MEDS ORDERED: HYDROmorphone 0.5 MG/0.5 ML SYRINGE IVP PRN (14:35)
[2023-09-30] MEDS ORDERED: amLODIPine 5 MG TAB PO SCH (15:42)
[2023-09-30] MEDS: MIDODRINE 5 MG TAB PO SCH (17:17)
[2023-09-30] MEDS: PANTOPRAZOLE 40 MG TABLET PO SCH (20:44)
--- NOTE | 2023-09-30 22:10 | PN ---
PROGRESS NOTE SUBJECTIVE: This is an 83-year-old white male, status post lobectomy of the lung, pending pathology. He remains in ICU. He is sitting at the bedside chair, is on room air, no acute distress. Two chest tubes are at pleural space, 800 mL serosanguineous fluid. There is no air leak, most likely blood sugars. Hemoglobin is 11.3 . Creatinine is 1.15. OBJECTIVE: VITAL SIGNS: Blood pressure is 88/48, O2 99, pulse 102. CHEST: . ABDOMEN: Soft. NEUROLOGIC: Cranial nerves are intact. HEENT: Pupils equal, round, and reactive. Neck is supple. No mass. Hemoglobin is 10.2, white count 11.3, no peripheral edema. Hemoglobin is 10.2, neutrophils 10.3, sodium 136, carbon dioxide 21, glucose 167, calcium 8.2, status post right robotic-assisted thoracoscopy, right thoracotomy with right lower lobe lobectomy and mediastinal lymph node dissection. Squamous cell lung cancer is positive still based on bronchoscopy, even this post bronchoscopy lapses hypertension, no signs of atelectasis or pneumothorax versus atrial fibrillation, dyslipidemia, diastolic heart failure, coronary artery disease, prior stents, Xarelto for atrial fibrillation, GERD, sleep apnea, on CPAP. PROGNOSIS: Extremely guarded, please see further orders. MMODL / IJN: [id number] /
[2023-10-01] MEDS: HEPARIN SODIUM,PORCINE 5,000 UNIT/ML 1 ML VIAL SQ SCH ×4 (00:57→23:00)
[2023-10-01] MEDS: KETOROLAC 15 MG/ML 1 ML VIAL IVP SCH ×2 (02:33→21:39)
[2023-10-01 04:27] LABS: Anisocytosis Slight; HCT 27.3 % (39.0-53.0); HGB 9.5 gm/dL (13.0-17.5); MCH 30.5 pg (25.0-35.0); MCHC 34.7 g/dL (31.0-37.0); MCV 87.9 fL (80.0-100.0); Platelet Count 173 k/uL (150-450); Poikilocytosis Slight; RDW 16.9 % (11.5-15.5); WBC 12.8 k/uL (3.8-10.6)
[2023-10-01 04:47] LABS: African American GFR (CKD) 39 (>60 ml/min/1.73 sqM); Anion Gap 8 mmol/L; Blood Urea Nitrogen 32 mg/dL (9-20); Calcium 8.7 mg/dL (8.4-10.2); Carbon Dioxide 22 mmol/L (22-30); Chloride 101 mmol/L (98-107); Glucose 147 mg/dL (74-99); Non-African American GFR(CKD) 34 (>60 ml/min/1.73 sqM); Potassium 3.9 mmol/L (3.5-5.1); Sodium 131 mmol/L (137-145)
[2023-10-01] MEDS: MIDODRINE 5 MG TAB PO SCH ×2 (06:57→18:53)
[2023-10-01] MEDS: traMADol 50 MG TAB PO PRN ×2 (06:59→20:41)
[2023-10-01] MEDS ORDERED: BENZOCAINE/MENTHOL LOZENG 1 EACH LOZENGE MUCOUS MEM PRN (07:19)
--- NOTE | 2023-10-01 07:49 | P.PN ---
Subjective Progress Note Date: 10/01/23 Principal diagnosis: Squamous cell carcinoma right lower lobe, hemoptysis. Previous medical history of chronic cough with hemoptysis since lung biopsy, coronary artery disease with PCI maintained on Plavix, chronic persistent atrial fibrillation with failed cardioversion attempt, hypertension, hyperlipidemia, prostate cancer, previous tobacco dependence, and obstructive sleep apnea on home CPAP use POD #2 right robotic assisted thoracoscopy, conversion to right thoracotomy with right lower lobectomy and mediastinal lymph node dissection, cryoablation of intercostal nerves 3-10 The patient was seen and examined this morning sitting up in recliner in the intensive care unit in no acute distress. States he did not get any sleep last night as he was coughing quite a bit. Does complain of some pain with coughing although he is not taking the maximum allowed pain medication he has ordered, denies shortness of breath. Remains in controlled atrial fibrillation. Did have some borderline blood pressures yesterday although MAPs were stable, medications adjusted. Currently on room air with oxygen saturation in the high 90s and able to achieve 1500 mL on his incentive spirometry. Labs, chest x-ray reviewed. Patient does have some subcu emphysema to his right neck and chest, this is common and somewhat expected after lung surgery and is not a complication. BUN/creatinine did bump this morning, Toradol discontinued. Anterior and posterior right-sided pleural chest tubes were placed to waterseal yesterday, anterior chest tube with 150 mL serosanguineous fluid in the last 24 hours with no air leak seen this morning, posterior chest tube with 15 mL serosanguineous drainage in the last 24 hours and no airleak present. Patient has been unable to void and did have straight catheterization x 1 for 275 mL urine. No other new concerns. Objective - Vital Signs Vital signs: Vital Signs Temp 98.1 F 10/01/23 04:00 Pulse 98 10/01/23 04:00 Resp 22 10/01/23 04:00 BP 101/43 10/01/23 06:57 Pulse Ox 98 10/01/23 04:00 FiO2 Intake & Output 09/30/23 10/01/23 10/01/23 18:59 06:59 18:59 Intake Total 900 725 Output Total 100 387 Balance 800 338 Intake: IV 50 Dextrose 5%-0.45% NaCl 1, 50 000 ml @ 50 mls/hr IV . Q20H [facility] Rx#:[id number] Oral 850 725 Output: Chest Tube Drainage 100 112 Right Anterior Chest 85 100 Right Posterior Chest 15 12 Urine 0 275 Straight 275 ABP, PAP, CO, CI - Last Documented Arterial Blood Pressure 120/43 - Exam CONSTITUTIONAL: Appears comfortable, cooperative, no acute distress RESPIRATORY: Lungs sounds diminished bilaterally with faint expiratory wheezes present. Respirations even, nonlabored. Currently on room air with oxygen saturation 99%. Able to achieve 1500 mL on incentive spirometry. Strong cough. CARDIOVASCULAR: S1, S2 present. Irregular rate and rhythm, controlled atrial fibrillation on telemetry. Palpable peripheral pulses bilaterally. No edema present. No calf pain or tenderness noted. SCDs present. GASTROINTESTINAL: Abdomen soft, nontender, nondistended. Active bowel sounds present 4 quadrants. Tolerating diet. GENITOURINARY: Straight catheterization last night for 275 mL INTEGUMENTARY: Skin is warm and dry with evidence of good perfusion. Thoracic incision well approximated and covered with dry intact dressing. NEUROLOGIC: Cranial nerves II through XII intact MUSKULOSKELETAL: Able to move all extremities, strength equal bilaterally, gait normal PSYCHIATRIC: Alert and oriented to person place and time, appropriate affect, intact judgment and insight INVASIVE LINES AND TUBES: Right anterior and posterior pleural chest tubes present to waterseal, no air leaks present. Right anterior tube with 150 mL serosanguineous drainage in the last 24 hours. Right posterior pleural chest tube with 15 mL serosanguineous drainage in the last 24 hours - Allied health notes Allied health notes reviewed: nursing - Labs CBC & Chem 7: 10/01/23 03:47 10/01/23 03:47 Labs: Abnormal Lab Results - Last 24 Hours (Table) 09/30/23 10/01/23 10/01/23 Range/Units 13:55 03:47 03:47 WBC 13.9 H 12.8 H (3.8-10.6) k/uL RBC 3.39 L 3.10 L (4.30-5.90) m/uL Hgb 10.2 L 9.5 L (13.0-17.5) gm/dL Hct 30.7 L 27.3 L (39.0-53.0) % RDW 16.9 H 16.9 H (11.5-15.5) % Sodium 131 L (137-145) mmol/L BUN 32 H (9-20) mg/dL Creatinine 1.81 H (0.66-1.25) mg/dL Glucose 147 H (74-99) mg/dL - Imaging and Cardiology Chest x-ray: image reviewed Assessment and Plan Assessment: Squamous cell carcinoma right lower lobe, status post right robotic assisted thoracoscopy, conversion to right thoracotomy with right lower lobectomy and mediastinal lymph node dissection History of chronic cough with hemoptysis since lung biopsy Coronary artery disease with PCI maintained on Plavix Chronic persistent atrial fibrillation with failed cardioversion attempt Hypertension Hyperlipidemia Prostate cancer Previous tobacco dependence Obstructive sleep apnea on home CPAP use Plan: Will discontinue right posterior chest tube, continue anterior chest tube to waterseal for another 24 hours Encourage incentive spirometry use 10 times every hour while awake, pulmonary hygiene. Continue bronchodilators, Mucomyst Increase activity, ambulate as tolerated, PT/OT consulted Will monitor daily labs and x-rays GI/DVT prophylaxis Home medications ordered, hold Plavix until after chest tube removal Pain control with current medication regimen. Toradol discontinued due to increased creatinine May bladder scan and straight cath for greater than 300 mL residual. If patient remains unable to void may reinsert Garcia Hep-Lock IV Tessalon pearls added for better cough suppression Blood pressure meds adjusted and hold parameters placed. Midodrine added yesterday Transfer orders asked yesterday for 3 S. cardiac stepdown unit, may transfer when bed available More recommendations to follow
[2023-10-01] MEDS: IPRATROPIUM-ALBUTEROL 3 ML NEB INHALATION SCH ×4 (08:03→20:15)
[2023-10-01] MEDS: ACETYLCYSTEINE 800 MG/4 ML VIAL INHALATION SCH ×4 (08:03→20:15)
[2023-10-01] MEDS: SYMBICORT 80-4.5 MCG INHALER INHALATION SCH ×2 (08:04→20:16)
[2023-10-01] MEDS ORDERED: MIDODRINE 5 MG TAB PO STA (08:14)
[2023-10-01] MEDS: amLODIPine 5 MG TAB PO SCH (08:50)
--- NOTE | 2023-10-01 08:50 | XR ---
EXAMINATION TYPE: XR chest 1V portable DATE OF EXAM: 10/01/2023 COMPARISON: 09/30/2023 INDICATION: Postlobectomy TECHNIQUE: Single frontal view of the chest is obtained. FINDINGS: The heart size is normal. The pulmonary vasculature is normal. Small lateral right pneumothorax is developed. There is extensive subcutaneous emphysema present. Lef t-sided chest tube is present. Left basilar chest tube is present. IMPRESSION: 1. Increase in a small right-sided pneumothorax. 2. Extensive increasing subcutaneous emphysema on the right.
[2023-10-01] MEDS: ISOSORBIDE MONONITRATE ER 30 MG TAB.ER.24H PO SCH (08:51)
[2023-10-01] MEDS: lisinopriL 10 MG TAB PO SCH (08:51)
[2023-10-01] MEDS: ACETAMINOPHEN TAB 325 MG TAB PO PRN (08:57)
[2023-10-01] MEDS: guaiFENesin 600 MG TABLET.ER PO SCH ×2 (08:58→20:41)
[2023-10-01] MEDS: PANTOPRAZOLE 40 MG TABLET PO SCH ×2 (08:58→20:41)
[2023-10-01] MEDS: SENNOSIDES-DOCUSATE SODIUM 1 EACH TAB PO SCH ×2 (08:58→20:39)
[2023-10-01] MEDS: RANOLAZINE 500 MG TAB.ER.12H PO SCH ×2 (08:58→20:41)
[2023-10-01] MEDS: MULTIVITAMINS, THERA 1 EACH TAB PO SCH (08:58)
[2023-10-01] MEDS: BENZONATATE 100 MG CAP PO SCH ×3 (09:00→20:41)
[2023-10-01] MEDS: allopurinoL 300 MG TAB PO SCH (09:00)
--- NOTE | 2023-10-01 12:50 | P.PN ---
Subjective Progress Note Date: 10/01/23 Principal diagnosis: POD #2 right robotic assisted thoracoscopy, conversion to right thoracotomy with right lower lobectomy and mediastinal lymph node dissection, cryoablation of i ntercostal nerves 3-10 This is an 83-year-old white male, recently discovered to have a large right lower lobe mass, PET scan was positive for uptake in the primary tumor but not in the lymph nodes. Bronchoscopy by Dr. 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 EBUS was negative for metastatic disease. Patient has been experiencing persistent hemoptysis following his bronchoscopy. Patient was eventually referred to Dr. Stanley, and considering his persistent hemoptysis, patient underwent today right robotic assisted thoracoscopy, right thoracotomy, and right lower lobectomy and mediastinal lymph node dissection. He also went cryoablation of intercostal nerves III through X. Postoperatively patient was admitted to the ICU, and I was asked to see about consultation. In the ICU, patient was noted to be very comfortable in no distress, however his blood pressure is running high at 177/59. Chest x-ray postoperatively showed post lobectomy right lung no pneumothorax, and right-sided chest tubes are evident patient had intermittent cough but no hemoptysis no fever no chills. Has some vague chest wall discomfort at the surgical site Patient was reevaluated today on 09/30/2023, patient remains in the ICU, sitting at the bedside chair, he is now on room air, not in any distress, continues to have 2 chest tubes in the right pleural space, one of them anteriorly drained 800 cc of serosanguineous fluid overnight, and the procedure 1 drained about 100 cc. No airleak noted, hence left chest tubes are on waterseal. Off suction. Patient is achieving over 1000 CC with his incentive spirometry. And most likely the patient will be transferred out of the ICU to a regular medical floor or 3 S. BBC count is 11.3 hemoglobin is 10.2 basic metabolic profile is normal renal profile is normal creatinine 1.15 Patient evaluated today on 10/01/2023, patient is on room air, not in any distress, continues to have right-sided chest tube in place, and he does have significant subcutaneous emphysema but no evidence of any significant or sizable pneumothorax noted on the right side. Patient is doing well with incentive sp irometry, relatively asymptomatic. Labs today show WBC count of 14.1 hemoglobin is 7 WBC count is 12.8 hemoglobin 9.5 electrolytes are normal however his creatinine jumped up to 1.81 from 1.15 yesterday Objective - Vital Signs Vital signs: Vital Signs Temp 98.6 F 10/01/23 08:00 Pulse 93 10/01/23 11:52 Resp 17 10/01/23 08:00 BP 98/45 10/01/23 08:00 Pulse Ox 100 10/01/23 08:00 FiO2 Intake & Output 09/30/23 10/01/23 10/01/23 18:59 06:59 18:59 Intake Total 900 725 Output Total 100 387 Balance 800 338 Intake: IV 50 Dextrose 5%-0.45% NaCl 1, 50 000 ml @ 50 mls/hr IV . Q20H [facility] Rx#:[id number] Oral 850 725 Output: Chest Tube Drainage 100 112 Right Anterior Chest 85 100 Right Posterior Chest 15 12 Urine 0 275 Straight 275 ABP, PAP, CO, CI - Last Documented Arterial Blood Pressure 120/43 - Exam GENERAL EXAM: Alert, 83-year-old white male, comfortable in no apparent distress. On room air HEAD: Normocephalic and atraumatic EYES: Normal reaction of pupils, equal size. NOSE: Clear with pink turbinates. THROAT: No erythema or exudates. NECK: No masses, no JVD. CHEST: No chest wall deformity. LUNGS: Good breath sounds bilaterally, chest tube remains in place on the right side notable subcutaneous emphysema on the right chest area CVS: S1 and S2 normal with no audible murmur, irregular rhythm. No extra heart sounds ABDOMEN: No hepatosplenomegaly, active bowel sounds, no guarding or rigidity. SKIN: No rashes CENTRAL NERVOUS SYSTEM: No focal deficits, tone is normal in all 4 extremities. EXTREMITIES: There is no peripheral edema, clubbing, or cyanosis. Peripheral pulses are intact. - Labs CBC & Chem 7: 10/01/23 03:47 10/01/23 03:47 Labs: Abnormal Lab Results - Last 24 Hours (Table) 09/30/23 10/01/23 10/01/23 Range/Units 13:55 03:47 03:47 WBC 13.9 H 12.8 H (3.8-10.6) k/uL RBC 3.39 L 3.10 L (4.30-5.90) m/uL Hgb 10.2 L 9.5 L (13.0-17.5) gm/dL Hct 30.7 L 27.3 L (39.0-53.0) % RDW 16.9 H 16.9 H (11.5-15.5) % Sodium 131 L (137-145) mmol/L BUN 32 H (9-20) mg/dL Creatinine 1.81 H (0.66-1.25) mg/dL Glucose 147 H (74-99) mg/dL Assessment and Plan Assessment: Impression: Status post right robotic-assisted thoracoscopy, right thoracotomy with right lower lobectomy and mediastinal lymph node dissection. Cryoablation of intercostal nerves 3 through 10, postoperative day #2 Squamous cell lung cancer recently diagnosed, but no evidence of positive lymph node based on recent bronchoscopy/EBUS Persistent post bronchoscopy hemoptysis Benign essential hypertension, patient will be placed on amlodipine 5 mg daily and resume home meds Paroxysmal atrial fibrillation Hyperlipidemia Coronary artery disease, with prior stents History of GI bleed while on Xarelto GERD Acute kidney injury, exact etiology is not clear, possible ATN Obstructive sleep apnea with home CPAP Recommendation: Patient could be transferred to 3 S. today. Continue incentive spirometry Chest tube and subcutaneous emphysema being addressed by thoracic surgery on the case Continue bronchodilators continue to closely monitor renal profile patient developed acute kidney injury Ambulate Avoid nephrotoxic medication Daily x-rays of the chest GI and DVT prophylaxis Will continue to follow Time with Patient: Less than 30
--- NOTE | 2023-10-01 19:54 | PN ---
PROGRESS NOTE SUBJECTIVE: He is on multiple medications for blood pressure. He has low orthostatic hypotension. He was started on midodrine and possibly could come back on some of his blood pressure medications. At this time, he has worsening creatinine and BUN. He is possibly dehydrated quite a bit. Blood pressure is running low. Continue current treatments, possibly slow down on and maybe hold his Norvasc for now due to hypotension. We cut his Zestril down to 1 a day. OBJECTIVE: VITAL SIGNS: Blood pressure 103/61, O2 of 99% on room air, temp 98.4, pulse 91. CARDIOVASCULAR: S1, S2. LUNGS: Transmitted upper sounds. GI: Soft. HEMATOLOGY: Negative Homans. PSYCH: Fair mood and affect. ASSESSMENT: Continue current treatment. PT, OT. Go to [address] [place] [address]. He has lost some blood. He has the tube in his chest still. His chest x-ray shows large emphysema, increased size of the right pneumothorax. Maybe cut back on his blood pressure pills a little bit. May be hold his Norvasc for now. Prognosis guarded. We will check CBC and labs in the morning. MMODL / IJN: [id number] /
[2023-10-02] MEDS: MIDODRINE 5 MG TAB PO SCH ×3 (06:32→16:53)
[2023-10-02] MEDS ORDERED: SENNOSIDES-DOCUSATE SODIUM 1 EACH TAB PO PRN (07:15)
--- NOTE | 2023-10-02 07:28 | P.PN ---
Subjective Progress Note Date: 10/02/23 Principal diagnosis: Squamous cell carcinoma right lower lobe, hemoptysis, NORA, urine retension. Previous medical history of chronic cough with hemoptysis since lung biopsy, coronary artery disease with PCI maintained on Plavix, chronic persistent atrial fibrillation with failed cardioversion attempt, hypertension, hyperlipidemia, prostate cancer, previous tobacco dependence, and obstructive sleep apnea on home CPAP use POD #3 right robotic assisted thoracoscopy, conversion to right thoracotomy with right lower lobectomy and mediastinal lymph node dissection, cryoablation of intercostal nerves 3-10 The patient was seen and examined this morning sitting up in recliner on the cardiac stepdown unit in no acute distress. States he did not get any sleep last night , still coughing when laying in bed although cough does diminish when getting up to recliner. Does complain of some pain with coughing although he is not taking the maximum allowed pain medication he has ordered, denies shortness of breath. Remains in controlled atrial fibrillation. Continues to have b orderline blood pressures, hold parameters placed on BP meds and doses subsequently decreased, patient received no BP meds yesterday, midodrine increased. Currently on room air with oxygen saturation in the high 90s and able to achieve 1500 mL on his incentive spirometry. Labs, chest x-ray reviewe d. Patient does have some subcu emphysema to his right neck and chest, this is common and somewhat expected after lung surgery and is not a complication, stable, posterior chest tube discontinued yesterday. Patient has been unable to void since removal of catheter and did have straight catheterization x 2 yesterday, urine residual 526 mL by bladder scan this morning, nursing has been unable to place elias catheter, urology consulted, patient does have history of prostate ca with radiation treatments 3 years ago. Objective - Vital Signs Vital signs: Vital Signs Temp 98.3 F 10/01/23 20:00 Pulse 87 10/02/23 03:59 Resp 18 10/02/23 03:59 BP 89/49 10/02/23 03:59 Pulse Ox 95 10/02/23 03:59 FiO2 Intake & Output 10/01/23 10/02/23 10/02/23 18:59 06:59 18:59 Intake Total 540 Output Total 340 20 0 Balance -340 520 0 Weight 119.8 kg Intake: Oral 540 Output: Chest Tube Drainage 40 20 Right Anterior Chest 40 20 Urine 300 0 Straight 300 Other: # Voids 0 # Bowel Movements 1 1 ABP, PAP, CO, CI - Last Documented Arterial Blood Pressure 120/43 - Exam CONSTITUTIONAL: Sitting up in recliner on cardiac stepdown unit, appears uncomfortable, cooperative RESPIRATORY: Lungs sounds diminished bilaterally with faint expiratory wheezes present. Respirations even, nonlabored. Currently on room air with oxygen saturation 95%. Able to achieve 1500 mL on incentive spirometry. Strong cough. CARDIOVASCULAR: S1, S2 present. Irregular rate and rhythm, controlled atrial fibrillation on telemetry. Palpable peripheral pulses bilaterally. No edema present. No calf pain or tenderness noted. SCDs present. GASTROINTESTINAL: Abdomen soft, nontender, nondistended. Active bowel sounds p resent 4 quadrants. Tolerating diet. Positive bowel movement GENITOURINARY: Straight catheterization x 2 yesterday, continues to have retention, unable to void INTEGUMENTARY: Skin is warm and dry. Thoracic incision well approximated and covered with dry intact dressing. NEUROLOGIC: Cranial nerves II through XII intact MUSKULOSKELETAL: Able to move all extremities, strength equal bilaterally, gait normal PSYCHIATRIC: Alert and oriented to person place and time, appropriate affect, intact judgment and insight INVASIVE LINES AND TUBES: Right anterior pleural chest tube present to pattie nicholas, no air leaks present, 200 mL serosanguineous drainage in the last 24 hours - Allied health notes Allied health notes reviewed: nursing - Labs CBC & Chem 7: 10/01/23 03:47 10/01/23 03:47 - Imaging and Cardiology Chest x-ray: image reviewed Assessment and Plan Assessment: Squamous cell carcinoma right lower lobe, status post right robotic assisted thoracoscopy, conversion to right thoracotomy with right lower lobectomy and mediastinal lymph node dissection History of chronic cough with hemoptysis since lung biopsy Coronary artery disease with PCI maintained on Plavix Chronic persistent atrial fibrillation with failed cardioversion attempt Hypertension Hyperlipidemia Prostate cancer Previous tobacco dependence Obstructive sleep apnea on home CPAP use NORA, may be medication induced vs hypotension Plan: Will discontinue right anterior chest tube Urology consulted due to continued retention with history of prostate ca Concern with starting flomax due to hypotension, midodrine increased Blood pressure meds adjusted and hold parameters placed Encourage incentive spirometry use 10 times every hour while awake, pulmonary hygiene. Continue bronchodilators, Mucomyst Increase activity, ambulate as tolerated, PT/OT consulted Will monitor daily labs and x-rays GI/DVT prophylaxis Home medications ordered, hold Plavix until after chest tube removal Pain control with current medication regimen. Toradol discontinued due to increased creatinine More recommendations to follow
[2023-10-02] MEDS ORDERED: ALBUMIN HUMAN 5% 250 ML in EMPTY BAG 1 BAG IVPB STA (07:45)
[2023-10-02 07:56] LABS: Anisocytosis Slight; HCT 28.5 % (39.0-53.0); HGB 9.8 gm/dL (13.0-17.5); MCH 30.3 pg (25.0-35.0); MCHC 34.5 g/dL (31.0-37.0); MCV 87.9 fL (80.0-100.0); Mean Platelet Volume 8.6; Platelet Count 255 k/uL (150-450); Poikilocytosis Slight; RBC 3.24 m/uL (4.30-5.90); RDW 16.6 % (11.5-15.5); WBC 7.9 k/uL (3.8-10.6)
[2023-10-02] MEDS: RANOLAZINE 500 MG TAB.ER.12H PO SCH ×2 (08:24→20:24)
[2023-10-02] MEDS: PANTOPRAZOLE 40 MG TABLET PO SCH ×2 (08:24→20:24)
[2023-10-02] MEDS: guaiFENesin 600 MG TABLET.ER PO SCH ×2 (08:24→20:24)
[2023-10-02] MEDS: HEPARIN SODIUM,PORCINE 5,000 UNIT/ML 1 ML VIAL SQ SCH ×3 (08:24→23:17)
[2023-10-02] MEDS: allopurinoL 100 MG TAB PO SCH (08:24)
[2023-10-02] MEDS: MULTIVITAMINS, THERA 1 EACH TAB PO SCH (08:24)
[2023-10-02] MEDS: BENZONATATE 100 MG CAP PO SCH ×3 (08:24→20:25)
--- NOTE | 2023-10-02 08:35 | XR ---
EXAMINATION TYPE: XR chest 1V portable DATE OF EXAM: 10/02/2023 COMPARISON: 10/01/2023 INDICATION: Post lobectomy TECHNIQUE: Single frontal view of the chest is obtained. FINDINGS: The heart size is normal. The pulmonary vasculature is normal. The lungs are clear. No pneumothorax is evident on the current examination. The upper chest tube is been removed. Right ba silar chest tube remains present. Extensive subcutaneous emphysema remains present over the right blu st. IMPRESSION: 1. No recurrent pneumothorax. Extensive subcutaneous emphysema remains present. Right basilar chest t ube is unchanged.
[2023-10-02 08:48] LABS: African American GFR (CKD) 46 (>60 ml/min/1.73 sqM); Anion Gap 9 mmol/L; Blood Urea Nitrogen 40 mg/dL (9-20); Calcium 8.6 mg/dL (8.4-10.2); Carbon Dioxide 20 mmol/L (22-30); Chloride 101 mmol/L (98-107); Glucose 98 mg/dL (74-99); Non-African American GFR(CKD) 40 (>60 ml/min/1.73 sqM); Potassium 4.2 mmol/L (3.5-5.1); Sodium 130 mmol/L (137-145)
[2023-10-02] MEDS ORDERED: amLODIPine 2.5 MG TAB PO SCH (09:00)
[2023-10-02] MEDS: SYMBICORT 80-4.5 MCG INHALER INHALATION SCH ×2 (09:32→21:42)
[2023-10-02] MEDS: ACETYLCYSTEINE 800 MG/4 ML VIAL INHALATION SCH ×4 (09:32→21:42)
[2023-10-02] MEDS: IPRATROPIUM-ALBUTEROL 3 ML NEB INHALATION SCH ×4 (09:32→21:42)
[2023-10-02] MEDS: ISOSORBIDE MONONITRATE ER 30 MG TAB.ER.24H PO SCH (10:10)
[2023-10-02] MEDS: lisinopriL 10 MG TAB PO SCH (10:10)
[2023-10-02] MEDS: SODIUM CHLORIDE TAB 1 GM TAB PO SCH ×2 (10:11→20:24)
--- NOTE | 2023-10-02 13:58 | P.GSCN ---
History of Present Illness Consult date: 10/02/23 Reason for Consult: Urinary Retention History of present illness: This is an 83-year-old male that underwent right thoracotomy, developed urinary retention postoperatively. His postvoid residual has been trending up with a bladder scan showing greater than 300 mL, he has been unable to void and he is having suprapubic discomfort. He has a known history of prostate cancer treated back in 2018 with radiation therapy, he is known to Dr Gautam. Per patient his prostate cancer is in remission, and will his last PSA in the system is from 20 and at that time was undetectable. He indicated since his radiation he has been noticing some splitting of the stream and weak stream. Denies any previous history of urinary retention gross hematuria or recurrent UTIs. He is having the urgency to void but unable to void and he is complaining of suprapubic discomfort. Attempt to place a Garcia catheter by nursing staff was unsuccessful Review of Systems - Constitutional Denies fever, Denies weight loss - EENT Ears, nose, mouth and throat: Denies dysphagia - Cardiovascular Denies chest pain, Denies shortness of breath - Respiratory Denies cough, Denies 7 - Gastrointestinal Reports as per HPI - Neurological Denies headaches, Denies syncope - Hematologic/Lymphatic Denies easy bleeding, Denies easy bruising Past Medical History Past Medical History: Atrial Fibrillation, Coronary Artery Disease (CAD), Cancer, Eye Disorder, GI Bleed, Hyperlipidemia, Hypertension, Pneumonia, Skin Disorder, Sleep Apnea/CPAP/BIPAP, Vascular Disorder Additional Past Medical History / Comment(s): Recent dx of lung CA Aug 2023,Recent dx of pneumonia Sep 2023, recent dx hemoptysis-post bronchoscopy- Sep 2023, pt states he is still coughing up blood but "It's a lot less.", back pain-increased pain with walking,Vertigo, hiatal hernia, gout, eczema, bleeds easily,uses cpap, history of prostate cancer, cataract lt eye, "I have circulation issues with my legs." "My associate professor of biblical studies said we were going to deal with my lungs first before worrying about my legs.", pt reports swelling to bilat legs due to "I injured them falling off a ladder and my legs got stuck in ladder." History of Any Multi-Drug Resistant Organisms: None Reported Past Surgical History: Cholecystectomy, Heart Catheterization With Stent, Orthopedic Surgery, Prostate Surgery Additional Past Surgical History / Comment(s): Recent Bronchoscopy Aug 2023, Exploratory Abdominal Surgery; ORIF titanium/screws in LT Ankle. REPAIR BICEP TENDON LT ARM. RT CATARACT. STENTS X2. cyst removed from under chin, prostate surgery with 44 radiation txs, Watchman procedure. Past Anesthesia/Blood Transfusion Reactions: Previous Problems w/ Anesthesia Additional Past Anesthesia/Blood Transfusion Reaction / Comm: DEVELOPED AFIB AFTER CATARACT SURG 2013. No hx of blood transfusions. Date of Last Stent Placement:: 2013 Smoking Status: Former smoker - Past Family History Mother Family Medical History: Coronary Artery Disease (CAD), Myocardial Infarction (CO) Additional Family Medical History / Comment(s): from myocardial infarction at 69 years old Father Family Medical History: Coronary Artery Disease (CAD), Myocardial Infarction (CO) Additional Family Medical History / Comment(s): from myocardial infarction at 69 years old Medications and Allergies Home Medications Medication Instructions Recorded Confirmed Type lisinopriL [Prinivil] 10 mg PO BID 07/15/14 09/29/23 History Clopidogrel Bisulfate [Plavix] 75 mg PO DAILY 09/03/17 09/26/23 History Isosorbide Mononitrate ER [Imdur] 60 mg PO DAILY 09/03/17 09/29/23 History Nitroglycerin Sl Tabs [Nitrostat] 0.4 mg SUBLINGUAL Q5M PRN 09/03/17 09/26/23 History Ranolazine [Ranexa] 500 mg PO BID 09/03/17 09/29/23 History Albuterol Nebulized [Ventolin 1.25 mg INHALATION RT-Q6H PRN 08/30/23 09/29/23 History Nebulized (Accuneb)] Colchicine 0.6 mg PO DAILY PRN 08/30/23 09/29/23 History Mv-Min/Folic/K1/Lycopen/Lutein 1 tab PO DAILY 08/30/23 09/29/23 History [Centrum Silver Men Tablet] Omeprazole 40 mg PO HS 08/30/23 09/29/23 History Tirzepatide [Mounjaro] 10 mg SQ TU 08/30/23 09/26/23 History allopurinoL [Zyloprim] 300 mg PO DAILY 08/30/23 09/29/23 History Fluticasone/Umeclidin/Vilanter 1 puff INHALATION RT-DAILY 09/18/23 09/29/23 History [Trelegy Ellipta 100-62.5-25] Ibuprofen [Motrin] 800 mg PO Q8H PRN 09/26/23 09/26/23 History Allergies Allergy/AdvReac Type Severity Reaction Status Date / Time cortisone [Cortisone] Allergy Swelling Verified 09/29/23 06:13 and itching surgical tape Allergy "Broke Uncoded 09/29/23 06:13 out" "Got infection" Surgical - Exam Vital Signs Temp Pulse Resp BP Pulse Ox 98.4 F 87 20 154/70 96 09/29/23 06:01 09/29/23 06:01 09/29/23 06:01 09/29/23 06:01 09/29/23 06:01 - General no distress, no pain - Eyes normal ocular movement, no pale - ENT normal nares, normal mucosa - Respiratory normal expansion, normal respiratory effort - Abdomen Abdomen: soft, non tender, no distended - Psychiatric oriented to time, oriented to person, oriented to place Results - Labs 10/02/23 07:14 10/02/23 07:14 Abnormal Lab Results - Last 24 Hours (Table) 10/02/23 10/02/23 Range/Units 07:14 07:14 RBC 3.24 L (4.30-5.90) m/uL Hgb 9.8 L (13.0-17.5) gm/dL Hct 28.5 L (39.0-53.0) % RDW 16.6 H (11.5-15.5) % Sodium 130 L (137-145) mmol/L Carbon Dioxide 20 L (22-30) mmol/L BUN 40 H (9-20) mg/dL Creatinine 1.58 H (0.66-1.25) mg/dL Diabetes panel 10/02/23 Range/Units 07:14 Sodium 130 L (137-145) mmol/L Potassium 4.2 (3.5-5.1) mmol/L Chloride 101 (98-107) mmol/L Carbon Dioxide 20 L (22-30) mmol/L BUN 40 H (9-20) mg/dL Creatinine 1.58 H (0.66-1.25) mg/dL Glucose 98 (74-99) mg/dL Calcium 8.6 (8.4-10.2) mg/dL Calcium panel 10/02/23 Range/Units 07:14 Calcium 8.6 (8.4-10.2) mg/dL Pituitary panel 10/02/23 Range/Units 07:14 Sodium 130 L (137-145) mmol/L Potassium 4.2 (3.5-5.1) mmol/L Chloride 101 (98-107) mmol/L Carbon Dioxide 20 L (22-30) mmol/L BUN 40 H (9-20) mg/dL Creatinine 1.58 H (0.66-1.25) mg/dL Glucose 98 (74-99) mg/dL Calcium 8.6 (8.4-10.2) mg/dL Adrenal panel 10/02/23 Range/Units 07:14 Sodium 130 L (137-145) mmol/L Potassium 4.2 (3.5-5.1) mmol/L Chloride 101 (98-107) mmol/L Carbon Dioxide 20 L (22-30) mmol/L BUN 40 H (9-20) mg/dL Creatinine 1.58 H (0.66-1.25) mg/dL Glucose 98 (74-99) mg/dL Calcium 8.6 (8.4-10.2) mg/dL Assessment and Plan Assessment: 83-year-old male with postoperative urinary retention. Has obstructive urinary symptoms at baseline most likely secondary to his urethral stricture. I was able to place a 14 Malagasy catheter after dilating with the filiforms and fallowers. -Keep Garcia catheter for 1 week, he can follow-up with Dr. Connolly as an outpatient for trial of void
--- NOTE | 2023-10-02 14:21 | PN ---
PROGRESS NOTE SUBJECTIVE: An 83-year-old white male, who has history of prostate cancer, history of squamous cell lung cancer. He is status post lobectomy and dissection. Pathology is pending. COPD, coronary artery disease, remains on DuoNeb with renal insufficiency from 300 to 100 orthostatic hypotension. Norvasc down to 2.5 mg daily. Tessalon Perles for cough, Symbicort inhaler, Imdur 30 daily, Zestril 10 daily, cut that down in half due to hypotension. ProAmatine 10 a.c. t.i.d., Protonix 40 b.i.d. PT/OT, increase diet, increase ambulation. He has had chest tube in, try to wean him off the chest tube. Respiratory rate 16-18, blood pressure down to 104/67, O2 saturation 96 on room air, pulse 82. Continue current treatment. PROGNOSIS: Guarded. Follow up in next 24 to 48 hours. His chest x-ray today showed no recurrent pneumothorax. ASSESSMENT: Subcutaneous emphysema, right basilar tubes are unchanged. Wean tube as tolerated. Wait for pathology. Prognosis guarded. MMODL / IJN: [id number] /
--- NOTE | 2023-10-02 14:35 | P.PN ---
Subjective Progress Note Date: 10/02/23 This is an 83-year-old white male, recently discovered to have a large right lower lobe mass, PET scan was positive for uptake in the primary tumor but not in the lymph nodes. Bronchoscopy by Dr. 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 EBUS was negative for metastatic disease. Patient has been experiencing persistent hemoptysis following his bronchoscopy. Patient was eventually referred to Dr. Stanley, and considering his persistent hemoptysis, patient underwent today right robotic assisted thoracoscopy, right thoracotomy, and right lower lobectomy and mediastinal lymph node dissection. He also went cryoablation of intercostal ne rves III through X. Postoperatively patient was admitted to the ICU, and I was asked to see about consultation. In the ICU, patient was noted to be very comfortable in no distress, however his blood pressure is running high at 177/59. Chest x-ray postoperatively showed post lobectomy right lung no pneumothorax, and right-sided chest tubes are evident patient had intermittent cough but no hemoptysis no fever no chills. Has some vague chest wall discomfort at the surgical site Patient was reevaluated today on 09/30/2023, patient remains in the ICU, sitting at the bedside chair, he is now on room air, not in any distress, continues to have 2 chest tubes in the right pleural space, one of them anteriorly drained 800 cc of serosanguineous fluid overnight, and the procedure 1 drained about 100 cc. No airleak noted, hence left chest tubes are on waterseal. Off suction. Patient is achieving over 1000 CC with his incentive spirometry. And most likely the patient will be transferred out of the ICU to a regular medical floor or 3 S. BBC count is 11.3 hemoglobin is 10.2 basic metabolic profile is normal renal profile is normal creatinine 1.15 Patient evaluated today on 10/01/2023, patient is on room air, not in any distress, continues to have right-sided chest tube in place, and he does have significant subcutaneous emphysema but no evidence of any significant or sizable pneumothorax noted on the right side. Patient is doing well with incentive spirometry, relatively asymptomatic. Labs today show WBC count of 14.1 hemoglobin is 7 WBC count is 12.8 hemoglobin 9.5 electrolytes are normal however his creatinine jumped up to 1.81 from 1.15 yesterday The patient is seen today October 02, 2023 in follow-up on the selective care unit. Postoperative day #3. He is sitting up in a chair at the bedside. Awake and alert in no acute distress. His chest tubes have been removed. Chest x-ray reveals no recurrent pneumothorax. Extensive subcutaneous emphysema remains. He is maintaining good O2 saturations in the 90s on room air. He does have a loose congested cough. No worsening shortness of breath. Pain is well-managed. He is working well with the incentive spirometer. He is having some issues with urinary retention. Staff was unable to place a Garcia catheter. Urology has been consulted. He does have a history of prostate cancer. White count 7.9. Hemoglobin 9.8. Platelets 255. Sodium 130. Potassium 4.2. Bicarb 20. BUN 40. Creatinine 1.58. Glucose 98. He remains on bronchodilators, Tessalon Perles. Heparin for DVT prophylaxis. Objective - Vital Signs Vital signs: Vital Signs Temp 97.5 F L 10/02/23 12:00 Pulse 78 10/02/23 12:00 Resp 18 10/02/23 12:00 BP 98/66 10/02/23 12:00 Pulse Ox 98 10/02/23 12:00 FiO2 Intake & Output 10/01/23 10/02/23 10/02/23 18:59 06:59 18:59 Intake Total 540 240 Output Total 340 20 0 Balance -340 520 240 Weight 119.8 kg Intake: Oral 540 240 Output: Chest Tube Drainage 40 20 Right Anterior Chest 40 20 Urine 300 0 Straight 300 Other: # Voids 0 # Bowel Movements 1 1 ABP, PAP, CO, CI - Last Documented Arterial Blood Pressure 120/43 - Exam GENERAL EXAM: Alert, active, pleasant 83-year-old gentleman, up in a chair, on room air, fairly comfortable in no apparent distress. HEAD: Normocephalic. EYES: Normal reaction of pupils, equal size. NOSE: Clear with pink turbinates. THROAT: No erythema or exudates. NECK: No masses, no JVD. Subcutaneous emphysema noted over the right chest and neck. CHEST: No chest wall deformity. Chest tube puncture sites dry and intact. LUNGS: Equal air entry with scattered rhonchi over the right lung. CVS: S1 and S2 normal with no audible murmur, regular rhythm. ABDOMEN: No hepatosplenomegaly, normal bowel sounds, no guarding or rigidity. SPINE: No scoliosis or deformity SKIN: No rashes CENTRAL NERVOUS SYSTEM: No focal deficits, tone is normal in all 4 extremities. EXTREMITIES: There is no peripheral edema. No clubbing, no cyanosis. Peripheral pulses are intact. - Labs CBC & Chem 7: 10/02/23 07:14 10/02/23 07:14 Labs: Abnormal Lab Results - Last 24 Hours (Table) 10/02/23 10/02/23 Range/Units 07:14 07:14 RBC 3.24 L (4.30-5.90) m/uL Hgb 9.8 L (13.0-17.5) gm/dL Hct 28.5 L (39.0-53.0) % RDW 16.6 H (11.5-15.5) % Sodium 130 L (137-145) mmol/L Carbon Dioxide 20 L (22-30) mmol/L BUN 40 H (9-20) mg/dL Creatinine 1.58 H (0.66-1.25) mg/dL Assessment and Plan Assessment: Status post right robotic-assisted thoracoscopy, right thoracotomy with right lower lobectomy and mediastinal lymph node dissection. Cryoablation of intercostal nerves 3 through 10, postoperative day #3 Squamous cell lung cancer recently diagnosed, but no evidence of positive lymph node based on recent bronchoscopy/EBUS Persistent post bronchoscopy hemoptysis Urinary retention status post Garcia catheter placement per urology History of prostate cancer Benign essential hypertension, patient will be placed on amlodipine 5 mg daily and resume home meds Paroxysmal atrial fibrillation Hyperlipidemia Coronary artery disease, with prior stents History of GI bleed while on Xarelto GERD Acute kidney injury, exact etiology is not clear, possible ATN Obstructive sleep apnea with home CPAP Plan: The patient was seen and evaluated Chest x-ray, labs and medications reviewed Chest tubes removed Currently stable and on room air Working well with the incentive spirometer Increase his activity as tolerated Garcia catheter placed per urology for urinary retention We will continue to follow I have personally seen and examined the patient, performed the documentation and the assessment and plan as written. Number of minutes spent on the visit: 10.
--- NOTE | 2023-10-02 15:10 | P.PCN ---
Date of Procedure: 10/02/23 Preoperative Diagnosis: Urethral stricture Postoperative Diagnosis: Same Procedure(s) Performed: Urethral dilation using filiform and followers and catheter placement Description of Procedure: Penis was prepped in Betadine. Initially I attempted a 14 and a 12 Bruneian regular including catheters but resistance were met at the bulbar urethra. At this time using a 3 Bruneian filiform was advanced per urethera. the filliform went into the false passage thus it was kept in place, and a second filiform was used to advance into the urethra, and I was able to advance the filiform into the bladder. The followers were attached to the filiforms and starting with 10 Bruneian and going all the way up to 18 Bruneian the urethral stricture was dilated. Next a 14 Bruneian silicone catheter was advanced, but it appeared that the catheter was going into a false passage rather than into the dilated urethra. At this time I advanced a 035 Glidewire per urethra into the bladder. Next the end of the catheter was cut and the catheter was advanced over the wire and into the bladder with a return of clear urine. The balloon was inflated to 10 cc. Patient tolerated procedure well
[2023-10-03] MEDS: ACETAMINOPHEN TAB 325 MG TAB PO PRN ×2 (02:02→06:36)
[2023-10-03] MEDS: ONDANSETRON 4 MG/2 ML VIAL IVP PRN ×2 (02:04→13:04)
[2023-10-03] MEDS: MIDODRINE 5 MG TAB PO SCH ×3 (06:35→17:36)
[2023-10-03 06:51] LABS: Anisocytosis Slight; Basophils % (A) 0 %; Eosinophils # (A) 0.1 k/uL (0-0.7); Eosinophils % (A) 1 %; HCT 28.4 % (39.0-53.0); HGB 9.8 gm/dL (13.0-17.5); Lymphocytes # (A) 0.4 k/uL (1.0-4.8); Lymphocytes % (A) 5 %; MCH 30.7 pg (25.0-35.0); MCHC 34.6 g/dL (31.0-37.0); MCV 88.6 fL (80.0-100.0); Mean Platelet Volume 7.9; Monocytes # (A) 0.5 k/uL (0-1.0); Monocytes % (A) 7 %; Neutrophils % (A) 85 %; Platelet Count 295 k/uL (150-450); Poikilocytosis Slight; RDW 16.4 % (11.5-15.5)
[2023-10-03 07:00] LABS: ALT 41 U/L (4-49); AST 39 U/L (17-59); African American GFR (CKD) 54 (>60 ml/min/1.73 sqM); Albumin 3.3 g/dL (3.5-5.0); Alkaline Phosphatase 66 U/L (38-126); Anion Gap 9 mmol/L; Blood Urea Nitrogen 39 mg/dL (9-20); Calcium 8.9 mg/dL (8.4-10.2); Carbon Dioxide 20 mmol/L (22-30); Chloride 102 mmol/L (98-107); Glucose 109 mg/dL (74-99); Non-African American GFR(CKD) 47 (>60 ml/min/1.73 sqM); Potassium 4.3 mmol/L (3.5-5.1); Sodium 131 mmol/L (137-145); Total Bilirubin 1.1 mg/dL (0.2-1.3); Total Protein 5.5 g/dL (6.3-8.2)
--- NOTE | 2023-10-03 07:39 | XR ---
EXAMINATION TYPE: XR chest 2V DATE OF EXAM: 10/03/2023 6:37 AM COMPARISON: Chest radiographs from 10/02/2023 TECHNIQUE: XR chest 2V Frontal and lateral views of the chest. CLINICAL INDICATION:Male, 83 years old with history of post lobectomy; FINDINGS: Lungs/Pleura: Blunting of the right costophrenic angle. Postoperative changes from right lobectomy. N o sizable pneumothorax. Pulmonary vascularity: Unremarkable. Heart/mediastinum: Cardiomediastinal silhouette is unremarkable. Atherosclerotic calcifications are seen in the aorta. Musculoskeletal: No acute osseous pathology. Other findings: Right chest wall and neck subcutaneous emphysema redemonstrated. IMPRESSION: Postsurgical changes from right lobectomy with trace right pleural effusion and similar extensive rig ht chest wall and neck subcutaneous emphysema.
--- NOTE | 2023-10-03 07:39 | P.PN ---
Subjective Progress Note Date: 10/03/23 Principal diagnosis: Squamous cell carcinoma right lower lobe, hemoptysis, NORA, urine retension. Previous medical history of chronic cough with hemoptysis since lung biopsy, coronary artery disease with PCI maintained on Plavix, chronic persistent atrial fibrillation with failed cardioversion attempt, hypertension, hyperlipidemia, prostate cancer, previous tobacco dependence, and obstructive sleep apnea on home CPAP use POD #4 right robotic assisted thoracoscopy, conversion to right thoracotomy with right lower lobectomy and mediastinal lymph node dissection, cryoablation of intercostal nerves 3-10 The patient was seen and examined this morning sitting up in recliner on the cardiac stepdown unit in no acute distress. States he did not get any sleep last night, was up and down between the bed and the recliner. Does complain of some pain with coughing although he is not taking the maximum allowed pain medication he has ordered, denies shortness of breath. Remains in controlled atrial fibrillation. Continues to have borderline blood pressures, hold parameters placed on BP meds and doses subsequently decreased, patient received no BP meds yesterday x 48 hours, continues on midodrine. Currently on room air with oxygen saturation in the high 90s and able to achieve 1500 mL on his incentive spirometry. Labs, chest x-ray reviewed, kidney function improving. Patient does have some subcu emphysema to his right neck and chest, this is common and somewhat expected after lung surgery and is not a complication, stable, anterior chest tube discontinued yesterday. Patient has been unable to void since removal of catheter, urology consulted and placed elias catheter after dilation. Objective - Vital Signs Vital signs: Vital Signs Temp 98 F 10/02/23 20:00 Pulse 92 10/03/23 04:00 Resp 18 10/03/23 04:00 BP 99/53 10/03/23 04:00 Pulse Ox 96 10/03/23 04:00 FiO2 Intake & Output 10/02/23 10/03/23 10/03/23 18:59 06:59 18:59 Intake Total 350 0 Output Total 0 600 Balance 350 -600 Weight 119.1 kg Intake: Oral 350 0 Output: Urine 0 600 Other: Voiding Method Indwelling Catheter Indwelling Catheter # Voids 0 # Bowel Movements 1 ABP, PAP, CO, CI - Last Documented Arterial Blood Pressure 120/43 - Exam CONSTITUTIONAL: Sitting up in recliner on cardiac stepdown unit, appears comfortable, cooperative RESPIRATORY: Lungs sounds diminished bilaterally, right > left. Respirations even, nonlabored. Currently on room air with oxygen saturation 96%. Able to achieve 1500 mL on incentive spirometry. Strong cough. CARDIOVASCULAR: S1, S2 present. Irregular rate and rhythm, controlled atrial fibrillation on telemetry. Palpable peripheral pulses bilaterally. No edema present. No calf pain or tenderness noted. SCDs present. GASTROINTESTINAL: Abdomen soft, nontender, nondistended. Active bowel sounds present 4 quadrants. Tolerating diet. Positive bowel movement 10/02 GENITOURINARY: Elias present draining clear yellow urine, output 600 ml overnight INTEGUMENTARY: Skin is warm and dry. Thoracic incision well approximated and covered with dry intact dressing. NEUROLOGIC: Cranial nerves II through XII intact MUSKULOSKELETAL: Able to move all extremities, strength equal bilaterally, gait normal PSYCHIATRIC: Alert and oriented to person place and time, appropriate affect, intact judgment and insight - Allied health notes Allied health notes reviewed: nursing - Labs CBC & Chem 7: 10/03/23 06:05 10/03/23 06:05 Labs: Abnormal Lab Results - Last 24 Hours (Table) 10/02/23 10/02/23 10/03/23 Range/Units 07:14 07:14 06:05 RBC 3.24 L 3.20 L (4.30-5.90) m/uL Hgb 9.8 L 9.8 L (13.0-17.5) gm/dL Hct 28.5 L 28.4 L (39.0-53.0) % RDW 16.6 H 16.4 H (11.5-15.5) % Lymphocytes # 0.4 L (1.0-4.8) k/uL Sodium 130 L (137-145) mmol/L Carbon Dioxide 20 L (22-30) mmol/L BUN 40 H (9-20) mg/dL Creatinine 1.58 H (0.66-1.25) mg/dL Glucose (74-99) mg/dL Total Protein (6.3-8.2) g/dL Albumin (3.5-5.0) g/dL 10/03/23 Range/Units 06:05 RBC (4.30-5.90) m/uL Hgb (13.0-17.5) gm/dL Hct (39.0-53.0) % RDW (11.5-15.5) % Lymphocytes # (1.0-4.8) k/uL Sodium 131 L (137-145) mmol/L Carbon Dioxide 20 L (22-30) mmol/L BUN 39 H (9-20) mg/dL Creatinine 1.38 H (0.66-1.25) mg/dL Glucose 109 H (74-99) mg/dL Total Protein 5.5 L (6.3-8.2) g/dL Albumin 3.3 L (3.5-5.0) g/dL - Imaging and Cardiology Chest x-ray: image reviewed Assessment and Plan Assessment: Squamous cell carcinoma right lower lobe, status post right robotic assisted thoracoscopy, conversion to right thoracotomy with right lower lobectomy and mediastinal lymph node dissection History of chronic cough with hemoptysis since lung biopsy Coronary artery disease with PCI maintained on Plavix Chronic persistent atrial fibrillation with failed cardioversion attempt Hypertension Hyperlipidemia Prostate cancer Previous tobacco dependence Obstructive sleep apnea on home CPAP use NORA, may be medication induced vs hypotension, improving Urine retention, likely due to urethral stricture as patient had been having symptoms preoperatively, status post urethral dilation and placement of elias catheter by urology Plan: Will re-add plavix now that chest tubes are out Blood pressure meds adjusted and hold parameters placed, patient has received no BP meds for 48 hours, norvasc dc'd, will give concentrated albumin Encourage incentive spirometry use 10 times every hour while awake, pulmonary hygiene. Continue bronchodilators, Mucomyst Increase activity, ambulate as tolerated, PT/OT following Will monitor daily labs and x-rays GI/DVT prophylaxis Home medications ordered Pain control with current medication regimen Patient will need to keep elias in for 1 week and follow up with urology for trial void Likely will DC to home tomorrow More recommendations to follow
[2023-10-03] MEDS: MULTIVITAMINS, THERA 1 EACH TAB PO SCH (08:38)
[2023-10-03] MEDS: CLOPIDOGREL 75 MG TAB PO SCH (08:38)
[2023-10-03] MEDS: guaiFENesin 600 MG TABLET.ER PO SCH ×2 (08:38→19:56)
[2023-10-03] MEDS: SODIUM CHLORIDE TAB 1 GM TAB PO SCH ×2 (08:38→19:56)
[2023-10-03] MEDS: ISOSORBIDE MONONITRATE ER 30 MG TAB.ER.24H PO SCH (08:38)
[2023-10-03] MEDS: lisinopriL 10 MG TAB PO SCH (08:39)
[2023-10-03] MEDS: HEPARIN SODIUM,PORCINE 5,000 UNIT/ML 1 ML VIAL SQ SCH ×3 (08:39→23:23)
[2023-10-03] MEDS: allopurinoL 100 MG TAB PO SCH (08:39)
[2023-10-03] MEDS: RANOLAZINE 500 MG TAB.ER.12H PO SCH ×2 (08:39→19:56)
[2023-10-03] MEDS: BENZONATATE 100 MG CAP PO SCH ×3 (08:39→19:56)
[2023-10-03] MEDS: PANTOPRAZOLE 40 MG TABLET PO SCH ×2 (08:39→19:57)
[2023-10-03] MEDS: ALBUMIN HUMAN 25% 50 ML in EMPTY BAG 1 BAG IVPB SCH ×2 (09:53→11:06)
[2023-10-03] MEDS: SYMBICORT 80-4.5 MCG INHALER INHALATION SCH ×2 (09:54→20:55)
[2023-10-03] MEDS: ACETYLCYSTEINE 800 MG/4 ML VIAL INHALATION SCH ×4 (09:54→20:58)
[2023-10-03] MEDS: IPRATROPIUM-ALBUTEROL 3 ML NEB INHALATION SCH ×4 (09:54→20:55)
--- NOTE | 2023-10-03 14:54 | P.PN ---
Subjective Progress Note Date: 10/03/23 This is an 83-year-old white male, recently discovered to have a large right lower lobe mass, PET scan was positive for uptake in the primary tumor but not in the lymph nodes. Bronchoscopy by Dr. 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 EBUS was negative for metastatic disease. Patient has been experiencing persistent hemoptysis following his bronchoscopy. Patient was eventually referred to Dr. Stanley, and considering his persistent hemoptysis, patient underwent today right robotic assisted thoracoscopy, right thoracotomy, and right lower lobectomy and mediastinal lymph node dissection. He also went cryoablation of intercostal ne rves III through X. Postoperatively patient was admitted to the ICU, and I was asked to see about consultation. In the ICU, patient was noted to be very comfortable in no distress, however his blood pressure is running high at 177/59. Chest x-ray postoperatively showed post lobectomy right lung no pneumothorax, and right-sided chest tubes are evident patient had intermittent cough but no hemoptysis no fever no chills. Has some vague chest wall discomfort at the surgical site Patient was reevaluated today on 09/30/2023, patient remains in the ICU, sitting at the bedside chair, he is now on room air, not in any distress, continues to have 2 chest tubes in the right pleural space, one of them anteriorly drained 800 cc of serosanguineous fluid overnight, and the procedure 1 drained about 100 cc. No airleak noted, hence left chest tubes are on waterseal. Off suction. Patient is achieving over 1000 CC with his incentive spirometry. And most likely the patient will be transferred out of the ICU to a regular medical floor or 3 S. BBC count is 11.3 hemoglobin is 10.2 basic metabolic profile is normal renal profile is normal creatinine 1.15 Patient evaluated today on 10/01/2023, patient is on room air, not in any distress, continues to have right-sided chest tube in place, and he does have significant subcutaneous emphysema but no evidence of any significant or sizable pneumothorax noted on the right side. Patient is doing well with incentive spirometry, relatively asymptomatic. Labs today show WBC count of 14.1 hemoglobin is 7 WBC count is 12.8 hemoglobin 9.5 electrolytes are normal however his creatinine jumped up to 1.81 from 1.15 yesterday The patient is seen today October 02, 2023 in follow-up on the selective care unit. Postoperative day #3. He is sitting up in a chair at the bedside. Awake and alert in no acute distress. His chest tubes have been removed. Chest x-ray reveals no recurrent pneumothorax. Extensive subcutaneous emphysema remains. He is maintaining good O2 saturations in the 90s on room air. He does have a loose congested cough. No worsening shortness of breath. Pain is well-managed. He is working well with the incentive spirometer. He is having some issues with urinary retention. Staff was unable to place a Garcia catheter. Urology has been consulted. He does have a history of prostate cancer. White count 7.9. Hemoglobin 9.8. Platelets 255. Sodium 130. Potassium 4.2. Bicarb 20. BUN 40. Creatinine 1.58. Glucose 98. He remains on bronchodilators, Tessalon Perles. Heparin for DVT prophylaxis. The patient is seen today October 03, 2023 in follow-up on the selective care unit. He is currently sitting up in a chair at the bedside. Awake and alert in no acute distress. He is a bit tired today. States he is not sleeping well. He is maintaining good O2 saturations in the 90s on room air. Chest x-ray shows postsurgical changes from right lobectomy with trace right pleural effusion and similar extensive right chest wall and neck subcutaneous emphysema. Continues to work well with the incentive spirometer. Chest tubes have been removed. Garcia catheter has been placed. He is status post 2 units of red blood cells, 2 units of fresh frozen plasma and 1 unit of platelets. White count 7.0. Hemoglobin 9.8. Platelets 295. Sodium 131. Potassium 4.3. Bicarb 20. BUN 39. Creatinine 1.38. Glucose 109. He remains on DuoNeb inhalations, Symbicort. Heparin for DVT prophylaxis. Objective - Vital Signs Vital signs: Vital Signs Temp 97.4 F L 10/03/23 08:00 Pulse 84 10/03/23 11:20 Resp 18 10/03/23 08:00 BP 134/75 10/03/23 08:00 Pulse Ox 97 10/03/23 08:00 FiO2 Intake & Output 10/02/23 10/03/23 10/03/23 18:59 06:59 18:59 Intake Total 350 0 120 Output Total 0 600 Balance 350 -600 120 Weight 119.1 kg Intake: Oral 350 0 120 Output: Urine 0 600 Other: Voiding Method Indwelling Catheter Indwelling Catheter Indwelling Catheter # Voids 0 2 # Bowel Movements 1 ABP, PAP, CO, CI - Last Documented Arterial Blood Pressure 120/43 - Exam GENERAL EXAM: Alert, 83-year-old gentleman, up in a chair, on room air, comfortable in no apparent distress. HEAD: Normocephalic. EYES: Normal reaction of pupils, equal size. NOSE: Clear with pink turbinates. THROAT: No erythema or exudates. NECK: No masses, no JVD. Subcutaneous emphysema noted over the right chest and neck. CHEST: No chest wall deformity. Chest tube puncture sites dry and intact. LUNGS: Equal air entry with scattered rhonchi over the right lung. CVS: S1 and S2 normal with no audible murmur, regular rhythm. ABDOMEN: No hepatosplenomegaly, normal bowel sounds, no guarding or rigidity. SPINE: No scoliosis or deformity SKIN: No rashes CENTRAL NERVOUS SYSTEM: No focal deficits, tone is normal in all 4 extremities. EXTREMITIES: There is no peripheral edema. No clubbing, no cyanosis. Peripheral pulses are intact. - Labs CBC & Chem 7: 10/03/23 06:05 10/03/23 06:05 Labs: Abnormal Lab Results - Last 24 Hours (Table) 10/03/23 10/03/23 Range/Units 06:05 06:05 RBC 3.20 L (4.30-5.90) m/uL Hgb 9.8 L (13.0-17.5) gm/dL Hct 28.4 L (39.0-53.0) % RDW 16.4 H (11.5-15.5) % Lymphocytes # 0.4 L (1.0-4.8) k/uL Sodium 131 L (137-145) mmol/L Carbon Dioxide 20 L (22-30) mmol/L BUN 39 H (9-20) mg/dL Creatinine 1.38 H (0.66-1.25) mg/dL Glucose 109 H (74-99) mg/dL Total Protein 5.5 L (6.3-8.2) g/dL Albumin 3.3 L (3.5-5.0) g/dL Assessment and Plan Assessment: Status post right robotic-assisted thoracoscopy, right thoracotomy with right lower lobectomy and mediastinal lymph node dissection. Cryoablation of intercostal nerves 3 through 10, postoperative day #4 Squamous cell lung cancer recently diagnosed, but no evidence of positive lymph node based on recent bronchoscopy/EBUS Persistent post bronchoscopy hemoptysis Urinary retention status post Garcia catheter placement per urology History of prostate cancer Benign essential hypertension, patient will be placed on amlodipine 5 mg daily and resume home meds Paroxysmal atrial fibrillation Hyperlipidemia Coronary artery disease, with prior stents History of GI bleed while on Xarelto GERD Acute kidney injury, exact etiology is not clear, possible ATN Obstructive sleep apnea with home CPAP Plan: The patient was seen and evaluated Chest x-ray, labs and medications reviewed Currently stable and on room air Working well with the incentive spirometer Increase his activity as tolerated Home once cleared by CT service I have personally seen and examined the patient, performed the documentation and the assessment and plan as written. Number of minutes spent on the visit: 10.
[2023-10-03] MEDS ORDERED: DICYCLOMINE 20 MG TAB PO STA (19:07)
--- NOTE | 2023-10-03 19:28 | PN ---
PROGRESS NOTE SUBJECTIVE: This is an 83-year-old white male, status post lobectomy, he is in 385, now out of ICU. OBJECTIVE: VITAL SIGNS: Pulse rate 72 to 80s, respiratory rate 16 to 18, blood pressure 135/61, and O2 97 on room air. CARDIOVASCULAR: S1, S2. LUNGS: Transmitted upper sounds. GI: Soft. HEMATOLOGY: Negative for Homans. White count down to 7, hemoglobin was 9.8, BUN is 39, creatinine 1.38, GFR is 247. Due to the cut down of his blood pressure medicines, his blood pressure is stable at 135/61 on half doses. Blood pressure medications continue, standard postop, remove chest tubes as tolerated. Blood pressure medicines as tolerated. Please see further orders. PT OT, continue breathing treatments. MMODL / IJN: [id number] /
[2023-10-03] MEDS: DEXTROSE 4 GM CHEWABLE PO STA ×2 (19:50→23:23)
[2023-10-04] MEDS: MIDODRINE 5 MG TAB PO SCH (03:53)
[2023-10-04 06:55] LABS: Anisocytosis Slight; Basophils % (A) 0 %; Eosinophils % (A) 1 %; HCT 28.6 % (39.0-53.0); HGB 9.6 gm/dL (13.0-17.5); Lymphocytes # (A) 0.3 k/uL (1.0-4.8); Lymphocytes % (A) 7 %; MCH 30.1 pg (25.0-35.0); MCHC 33.7 g/dL (31.0-37.0); MCV 89.2 fL (80.0-100.0); Monocytes # (A) 0.3 k/uL (0-1.0); Monocytes % (A) 8 %; Neutrophils # (A) 3.3 k/uL (1.3-7.7); Neutrophils % (A) 80 %; Platelet Count 300 k/uL (150-450); Poikilocytosis Slight; RDW 16.5 % (11.5-15.5); WBC 4.1 k/uL (3.8-10.6)
[2023-10-04 07:07] LABS: ALT 33 U/L (4-49); AST 30 U/L (17-59); African American GFR (CKD) 68 (>60 ml/min/1.73 sqM); Albumin 3.3 g/dL (3.5-5.0); Alkaline Phosphatase 65 U/L (38-126); Anion Gap 7 mmol/L; Blood Urea Nitrogen 31 mg/dL (9-20); Calcium 8.9 mg/dL (8.4-10.2); Carbon Dioxide 23 mmol/L (22-30); Chloride 103 mmol/L (98-107); Glucose 115 mg/dL (74-99); Non-African American GFR(CKD) 59 (>60 ml/min/1.73 sqM); Potassium 3.9 mmol/L (3.5-5.1); Sodium 133 mmol/L (137-145); Total Bilirubin 0.9 mg/dL (0.2-1.3); Total Protein 5.5 g/dL (6.3-8.2)
[2023-10-04] MEDS: BENZONATATE 100 MG CAP PO SCH (08:25)
[2023-10-04] MEDS: MULTIVITAMINS, THERA 1 EACH TAB PO SCH (08:25)
[2023-10-04] MEDS: CLOPIDOGREL 75 MG TAB PO SCH (08:25)
[2023-10-04] MEDS: RANOLAZINE 500 MG TAB.ER.12H PO SCH (08:25)
[2023-10-04] MEDS: PANTOPRAZOLE 40 MG TABLET PO SCH (08:25)
[2023-10-04] MEDS: ISOSORBIDE MONONITRATE ER 30 MG TAB.ER.24H PO SCH (08:25)
[2023-10-04] MEDS: lisinopriL 10 MG TAB PO SCH (08:25)
[2023-10-04] MEDS: allopurinoL 100 MG TAB PO SCH (08:25)
[2023-10-04] MEDS: guaiFENesin 600 MG TABLET.ER PO SCH (08:25)
[2023-10-04] MEDS: ACETAMINOPHEN TAB 325 MG TAB PO PRN (08:26)
[2023-10-04] MEDS: ACETYLCYSTEINE 800 MG/4 ML VIAL INHALATION SCH (08:40)
[2023-10-04] MEDS: IPRATROPIUM-ALBUTEROL 3 ML NEB INHALATION SCH ×2 (08:44→11:46)
[2023-10-04] MEDS: SYMBICORT 80-4.5 MCG INHALER INHALATION SCH (08:44)
--- NOTE | 2023-10-04 08:44 | XR ---
EXAMINATION TYPE: XR chest 2V DATE OF EXAM: 10/04/2023 8:39 AM COMPARISON: Chest radiographs from 10/03/2023 TECHNIQUE: XR chest 2V Frontal and lateral views of the chest. CLINICAL INDICATION:Male, 83 years old with history of post lobectomy; FINDINGS: Lungs/Pleura: Blunting of the right costophrenic angle. Postoperative changes from right lobectomy. N o sizable pneumothorax. Pulmonary vascularity: Unremarkable. Heart/mediastinum: Cardiomediastinal silhouette is unremarkable. Atherosclerotic calcifications are seen in the aorta. Musculoskeletal: No acute osseous pathology. Other findings: Right chest wall and neck subcutaneous emphysema redemonstrated. IMPRESSION: Postsurgical changes from right lobectomy with trace right pleural effusion and similar extensive rig ht chest wall and neck subcutaneous emphysema. No sizable pneumothorax.
--- NOTE | 2023-10-04 08:59 | P.PN ---
Subjective Progress Note Date: 10/04/23 Principal diagnosis: Squamous cell carcinoma right lower lobe, hemoptysis, NORA, urine retension. Previous medical history of chronic cough with hemoptysis since lung biopsy, coronary artery disease with PCI maintained on Plavix, chronic persistent atrial fibrillation with failed cardioversion attempt, hypertension, hyperlipidemia, prostate cancer, previous tobacco dependence, and obstructive sleep apnea on home CPAP use POD #5 right robotic assisted thoracoscopy, conversion to right thoracotomy with right lower lobectomy and mediastinal lymph node dissection, cryoablation of intercostal nerves 3-10 The patient was seen and examined this morning sitting up in recliner on the cardiac stepdown unit after just returning from CXR in no acute distress. States he is still not sleeping well at night, complain of some pain with coughing, denies shortness of breath. Does complain of diarrhea which he blames on the mucomyst, was given bentyl yesterday by Dr. Shearer. Remains in controlled atrial fibrillation. Blood pressures have improved and patient was able to tolerate his BP meds yesterday. Currently on room air with oxygen saturation in the high 90s and able to achieve 1500 mL on his incentive spirometry. Labs, chest x-ray reviewed, kidney function continues to improve. Patient does have some subcu emphysema to his right neck and chest, this is common and somewhat expected after lung surgery and is not a complication, stable with no increase. States he feels ready to go home, plan for discharge today with follow up with urology and Dr. Viveros on Tuesday as well as Dr. Stanley next week. Objective - Vital Signs Vital signs: Vital Signs Temp 97.9 F 10/04/23 00:00 Pulse 77 10/04/23 08:44 Resp 20 10/04/23 03:37 BP 150/73 10/04/23 03:37 Pulse Ox 99 10/04/23 03:37 FiO2 Intake & Output 10/03/23 10/04/23 10/04/23 18:59 06:59 18:59 Intake Total 360 600 Output Total 400 700 Balance -40 -100 Intake: Oral 360 600 Output: Urine 400 700 Other: Voiding Method Indwelling Catheter Indwelling Catheter # Voids 2 # Bowel Movements 2 ABP, PAP, CO, CI - Last Documented Arterial Blood Pressure 120/43 - Exam CONSTITUTIONAL: Sitting up in recliner on cardiac stepdown unit, appears comfortable, cooperative RESPIRATORY: Lungs sounds diminished bilaterally. Respirations even, nonlabored. Currently on room air with oxygen saturation 99%. Able to achieve 1500 mL on incentive spirometry. Strong cough. CARDIOVASCULAR: S1, S2 present. Irregular rate and rhythm, controlled atrial fibrillation on telemetry. Palpable peripheral pulses bilaterally. No edema present. No calf pain or tenderness noted. SCDs present. GASTROINTESTINAL: Abdomen soft, nontender, nondistended. Active bowel sounds present 4 quadrants. Tolerating diet. Positive bowel movement x2 10/03 GENITOURINARY: Elias present draining clear yellow urine INTEGUMENTARY: Skin is warm and dry. Thoracic incision well approximated and covered with dry intact dressing. NEUROLOGIC: Cranial nerves II through XII intact MUSKULOSKELETAL: Able to move all extremities, strength equal bilaterally, gait normal PSYCHIATRIC: Alert and oriented to person place and time, appropriate affect, intact judgment and insight - Allied health notes Allied health notes reviewed: nursing - Labs CBC & Chem 7: 10/04/23 06:50 10/04/23 06:50 Labs: Abnormal Lab Results - Last 24 Hours (Table) 10/04/23 10/04/23 Range/Units 06:50 06:50 RBC 3.20 L (4.30-5.90) m/uL Hgb 9.6 L (13.0-17.5) gm/dL Hct 28.6 L (39.0-53.0) % RDW 16.5 H (11.5-15.5) % Lymphocytes # 0.3 L (1.0-4.8) k/uL Sodium 133 L (137-145) mmol/L BUN 31 H (9-20) mg/dL Glucose 115 H (74-99) mg/dL Total Protein 5.5 L (6.3-8.2) g/dL Albumin 3.3 L (3.5-5.0) g/dL - Imaging and Cardiology Chest x-ray: report reviewed, image reviewed Assessment and Plan Assessment: Squamous cell carcinoma right lower lobe, status post right robotic assisted thoracoscopy, conversion to right thoracotomy with right lower lobectomy and mediastinal lymph node dissection History of chronic cough with hemoptysis since lung biopsy Coronary artery disease with PCI maintained on Plavix Chronic persistent atrial fibrillation with failed cardioversion attempt Hypertension Hyperlipidemia Prostate cancer Previous tobacco dependence Obstructive sleep apnea on home CPAP use NORA, may be medication induced vs hypotension, improving Urine retention, likely due to urethral stricture as patient had been having symptoms preoperatively, status post urethral dilation and placement of elias catheter by urology Plan: Blood pressure meds adjusted and hold parameters placed, patient received his BP meds yesterday Continue plavix Encourage incentive spirometry use 10 times every hour while awake, pulmonary hygiene. Continue bronchodilators. Mucomyst discontinued Increase activity, ambulate as tolerated GI/DVT prophylaxis Pain control with current medication regimen Patient will need to keep elias in for 1 week and follow up with urology for trial void, leg bag ordered and teaching to be done by nursing Will DC to home today
[2023-10-04] MEDS: HEPARIN SODIUM,PORCINE 5,000 UNIT/ML 1 ML VIAL SQ SCH (09:47)
[2023-10-04] MEDS: SODIUM CHLORIDE TAB 1 GM TAB PO SCH (09:47)
[2023-10-04] MEDS ORDERED: TIRZEPATIDE 10 MG/0.5 ML SQ SCH (10:57)
--- NOTE | 2023-10-04 12:40 | P.DS ---
Providers Date of admission: 09/29/23 05:39 Expected date of discharge: 10/04/23 Attending physician: Curtis Stanley Consults: 09/29/23 13:44 Consult Physician Routine Consulting Provider: Noemi Dickey Consult Reason/Comments: post lobectomy Do you want consulting provider notified?: Yes Consult Physician Routine Consulting Provider: Kojo Viveros Consult Reason/Comments: med mgmt Do you want consulting provider notified?: Yes 10/02/23 07:14 Consult Physician Urgent Consulting Provider: Ken Gonzalez Consult Reason/Comments: unable to place elias;hx of prostate ca Do you want consulting provider notified?: Yes Primary care physician: [facility] Course: FINAL DIAGNOSIS: Squamous cell carcinoma right lower lobe History of chronic cough with hemoptysis since lung biopsy Coronary artery disease with PCI maintained on Plavix Chronic persistent atrial fibrillation with failed cardioversion attempt Hypertension Hyperlipidemia Prostate cancer Previous tobacco dependence Obstructive sleep apnea on home CPAP use NORA, medication induced vs hypotension Urine retention, likely due to urethral stricture as patient had been having symptoms preoperatively, status post urethral dilation and placement of elias catheter by urology PRINCIPAL PROCEDURE: Right robotic assisted thoracoscopy, conversion to right thoracotomy with right lower lobectomy and mediastinal lymph node dissection Cryoablation of intercostal nerves 3-10 HISTORY OF PRESENT ILLNESS: This is an 83-year-old gentleman who follows outpatient with Dr. Viveros for primary care, Dr. Srivastava for pulmonology, Dr. Kuhn for cardiology, and Dr. Chandler for oncology. He was hospitalized at the end of August 2023 for shortness of breath, cough, and suspected pneumonia. During that admission he had multiple chest x-rays as well as chest CT demonstrating a large 6.3 cm spiculated mass within the right lower lung consistent with neoplasm. He underwent bronchoscopy with bronchioalveolar lavage and EBUS with biopsies taken, pathology was positive for poorly differentiated non-small cell carcinoma. The patient was treated and discharged home. At the beginning of September he underwent a PET scan which revealed cavitating right lower lobe mass measuring 6.5 x 5.0 cm with max SUV 28.8, no lymphadenopathy, no abnormal FDG avidity within the lymph nodes. Postbiopsy he continued to have cough and blood-tinged sputum and did present to [facility] emergency room for evaluation and treatment, he was treated and released and followed up in the office with Dr. Stanley for thoracic consultation a week later. Discussion took place regarding options for chemoradiation versus surgery. The patient opted for surgery. The usual perioperative course was discussed in detail with the patient, all risks and benefits were explained, all questions were answered, consent was obtained to proceed with surgery, and he was scheduled at the earliest possible date. The patient did get medical clearance from Dr. Kuhn and discontinued his Plavix 5 days prior to surgery. HOSPITAL COURSE: The patient was brought to the hospital on 09/29/23, taken to the preoperative area, prepared in the usual fashion, and subsequently taken to the operating room where Dr. Stanley performed right lower lobectomy and mediastinal lymph node dissection. Upon completion of surgery the patient was extubated and taken to the recovery room before hemodynamic monitoring. He was admitted to the admitted to the intensive care unit where he was recovered and monitored hemodynamically. He developed NORA likely the result of medication and hypotension. He also experienced urinary retention requiring placement of Elias catheter by urology. He was transferred to 3 S. cardiac stepdown unit for further monitoring and rehabilitation. His chest tubes were removed without incident with follow-up chest x-ray stable. His oxygen was titrated down, he continued to work with physical and occupational therapy, he was tolerating oral diet, his pain was controlled, and he was ready to be discharged to home on postoperative day #5. He received written and verbal instruction regarding his medications, activity restrictions, signs and symptoms requiring physician notification, and follow-up appointments. The patient was discharged home with Elias catheter in place to follow-up with urology for trial void. Patient Condition at Discharge: Stable Plan - Discharge Summary Discharge Rx Participant: No New Discharge Prescriptions: New guaiFENesin [Mucinex] 600 mg PO Q12HR #60 tab Acetaminophen Tab [Tylenol] 650 mg PO Q4HR PRN tab PRN Reason: Mild To Moderate Pain (1 - 6) lisinopriL [Zestril] 10 mg PO DAILY tab Isosorbide Mononitrate ER [Imdur] 30 mg PO DAILY #30 tab Benzonatate [Tessalon Perles] 200 mg PO TID #120 cap Continue Ranolazine [Ranexa] 500 mg PO BID Nitroglycerin Sl Tabs [Nitrostat] 0.4 mg SUBLINGUAL Q5M PRN PRN Reason: Chest Pain Clopidogrel Bisulfate [Plavix] 75 mg PO DAILY Tirzepatide [Mounjaro] 10 mg SQ TU Omeprazole 40 mg PO HS allopurinoL [Zyloprim] 300 mg PO DAILY Fluticasone/Umeclidin/Vilanter [Trelegy Ellipta 100-62.5-25] 1 puff INHALATION RT-DAILY Albuterol Nebulized [Ventolin Nebulized (Accuneb)] 1.25 mg INHALATION RT-Q6H PRN PRN Reason: Shortness Of Breath Colchicine 0.6 mg PO DAILY PRN PRN Reason: GOUT Mv-Min/Folic/K1/Lycopen/Lutein [Centrum Silver Men Tablet] 1 tab PO DAILY Discontinued lisinopriL [Prinivil] 10 mg PO BID Isosorbide Mononitrate ER [Imdur] 60 mg PO DAILY Ibuprofen [Motrin] 800 mg PO Q8H PRN PRN Reason: Pain Discharge Medication List Clopidogrel Bisulfate [Plavix] 75 mg PO DAILY 09/03/17 [History] Nitroglycerin Sl Tabs [Nitrostat] 0.4 mg SUBLINGUAL Q5M PRN 09/03/17 [History] Ranolazine [Ranexa] 500 mg PO BID 09/03/17 [History] Albuterol Nebulized [Ventolin Nebulized (Accuneb)] 1.25 mg INHALATION RT-Q6H PRN 08/30/23 [History] Colchicine 0.6 mg PO DAILY PRN 08/30/23 [History] Mv-Min/Folic/K1/Lycopen/Lutein [Centrum Silver Men Tablet] 1 tab PO DAILY 08/30/23 [History] Omeprazole 40 mg PO HS 08/30/23 [History] Tirzepatide [Mounjaro] 10 mg SQ TU 08/30/23 [History] allopurinoL [Zyloprim] 300 mg PO DAILY 08/30/23 [History] Fluticasone/Umeclidin/Vilanter [Trelegy Ellipta 100-62.5-25] 1 puff INHALATION RT-DAILY 09/18/23 [History] Acetaminophen Tab [Tylenol] 650 mg PO Q4HR PRN tab 10/04/23 [Rx] Benzonatate [Tessalon Perles] 200 mg PO TID #120 cap 10/04/23 [Rx] Isosorbide Mononitrate ER [Imdur] 30 mg PO DAILY #30 tab 10/04/23 [Rx] guaiFENesin [Mucinex] 600 mg PO Q12HR #60 tab 10/04/23 [Rx] lisinopriL [Zestril] 10 mg PO DAILY tab 10/04/23 [Rx] Follow up Appointment(s)/Referral(s): Frank Gautam MD [STAFF PHYSICIAN] - 10/07/23 8:20 am Kojo Viveros MD [Primary Care Provider] - 10/07/23 11:00 am Curtis Stanley MD [STAFF PHYSICIAN] - 10/13/23 11:00 am Shoaib Kuhn MD [REFERRING] - As Needed Kirsten Srivastava MD [STAFF PHYSICIAN] - 10/21/23 9:00 am Chato Aiken MD [STAFF PHYSICIAN] - As Needed Patient Instructions/Handouts: *Surgery [facility] - Elias Catheter Instructions, Urinary Leg Bag (GEN) Activity/Diet/Wound Care/Special Instructions: DISCHARGE INSTRUCTIONS: 1. No driving for 2 weeks, or until physician gives their ok. 2. No lifting, pushing, or pulling more than 10 pounds for 2 weeks. The physician will advise of any restriction changes. 3. Continue pain control per as needed orders. Alternate acetaminophen (Tylenol) and ibuprofen (Motrin/Advil) for pain. 4. Continue with incentive spirometry and splinting until otherwise directed by the physician. 5. Leave chest tube dressing for 48 hours. After that, remove all dressings and shower daily. 6. Routine incision care. No powders, lotions, ointments on incisions. 7. Please call surgeon/ACADEMIC ADMINISTRATOR for temp greater than 101 F or purulent drainage from incisions. 8. Smoking cessation counseling and program information provided. Quitting smoking is the most important step you can take to improve your health. For additional information and assistance to quit smoking, please call the [place] tobacco quit line (5-346-WUOQ-NOW/ ) or online: [email or web address] Discharge Disposition: HOME SELF-CARE
[2023-10-04 13:09] VITALS: BP 118/56; PULSE 79; RESP 16; TEMP 96.2
--- NOTE | 2023-10-04 13:51 | P.PN ---
Subjective Progress Note Date: 10/04/23 Principal diagnosis: Lung mass. This is an 83-year-old white male, recently discovered to have a large right lower lobe mass, PET scan was positive for uptake in the primary tumor but not in the lymph nodes. Bronchoscopy by Dr. 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 EBUS was negative for metastatic disease. Patient has been experiencing persistent hemoptysis following his bronchoscopy. Patient was eventually referred to Dr. Stanley, and considering his persistent hemoptysis, patient underwent today right robotic assisted thoracoscopy, right thoracotomy, and right lower lobectomy and mediastinal lymph node dissection. He also went cryoablation of intercostal nerves III through X. Postoperatively patient was admitted to the ICU, and I was asked to see about consultation. In the ICU, patient was noted to be very comfortable in no distress, however his blood pressure is running high at 177/59. Chest x-ray postoperatively showed post lobectomy right lung no pneumothorax, and right-sided chest tubes are evident patient had intermittent cough but no hemoptysis no fever no chills. Has some vague chest wall discomfort at the surgical site Patient was reevaluated today on 09/30/2023, patient remains in the ICU, sitting at the bedside chair, he is now on room air, not in any distress, continues to have 2 chest tubes in the right pleural space, one of them anteriorly drained 800 cc of serosanguineous fluid overnight, and the procedure 1 drained about 100 cc. No airleak noted, hence left chest tubes are on waterseal. Off suction. Patient is achieving over 1000 CC with his incentive spirometry. And most likely the patient will be transferred out of the ICU to a regular medical floor or 3 S. BBC count is 11.3 hemoglobin is 10.2 basic metabolic profile is normal renal profile is normal creatinine 1.15 Patient evaluated today on 10/01/2023, patient is on room air, not in any distress, continues to have right-sided chest tube in place, and he does have significant subcutaneous emphysema but no evidence of any significant or sizable pneumothorax noted on the right side. Patient is doing well with incentive spirometry, relatively asymptomatic. Labs today show WBC count of 14.1 he moglobin is 7 WBC count is 12.8 hemoglobin 9.5 electrolytes are normal however his creatinine jumped up to 1.81 from 1.15 yesterday The patient is seen today October 02, 2023 in follow-up on the selective care unit. Postoperative day #3. He is sitting up in a chair at the bedside. Awake and alert in no acute distress. His chest tubes have been removed. Chest x-ray reveals no recurrent pneumothorax. Extensive subcutaneous emphysema remains. He is maintaining good O2 saturations in the 90s on room air. He does have a loose congested cough. No worsening shortness of breath. Pain is well-managed. He is working well with the incentive spirometer. He is having some issues with urinary retention. Staff was unable to place a Garcia catheter. Urology has been consulted. He does have a history of prostate cancer. White count 7.9. Hemoglobin 9.8. Platelets 255. Sodium 130. Potassium 4.2. Bicarb 20. BUN 40. Creatinine 1.58. Glucose 98. He remains on bronchodilators, Tessalon Perles. Heparin for DVT prophylaxis. The patient is seen today October 03, 2023 in follow-up on the selective care unit. He is currently sitting up in a chair at the bedside. Awake and alert in no acute distress. He is a bit tired today. States he is not sleeping well. He is maintaining good O2 saturations in the 90s on room air. Chest x-ray shows postsurgical changes from right lobectomy with trace right pleural effusion and similar extensive right chest wall and neck subcutaneous emphysema. Continues to work well with the incentive spirometer. Chest tubes have been removed. Garcia catheter has been placed. He is status post 2 units of red blood cells, 2 units of fresh frozen plasma and 1 unit of platelets. White count 7.0. Hemoglobin 9.8. Platelets 295. Sodium 131. Potassium 4.3. Bicarb 20. BUN 39. Creatinine 1.38. Glucose 109. He remains on DuoNeb inhalations, S ymbicort. Heparin for DVT prophylaxis. Progress note dated October 04, 2023. 83-year-old male seen in room 385. Currently, the patient is resting comfortably, in a chair, next to his hospital bed. He is on room air. He is not receiving any IV fluids. It is the patient's understanding, and that he could be discharged home today. The patient denies any difficulty breathing, coughing, wheezing, chest tightness, chest pain, or chest pressure. Laboratory data includes a white count 4.1, hemoglobin 9.6, hematocrit 28.6, and a platelet count of 300,000. Sodium is 133, potassium 3.9, chloride 103, CO2 23, anion gap is 7, BUN 31, creatinine 1.15, down from 1.38. Albumin is 3.3 chest x-ray from today shows postsurgical changes, from recent right lobectomy, with trace right pleural effusion, and significant subcutaneous emphysema. No obvious pneumothorax is seen. Objective - Vital Signs Vital signs: Vital Signs Temp 96.2 F L 10/04/23 08:10 Pulse 80 10/04/23 11:58 Resp 16 10/04/23 11:45 BP 118/56 10/04/23 11:45 Pulse Ox 98 10/04/23 11:45 FiO2 Intake & Output 10/03/23 10/04/23 10/04/23 18:59 06:59 18:59 Intake Total 360 600 120 Output Total 400 700 Balance -40 -100 120 Intake: Oral 360 600 120 Output: Urine 400 700 Other: Voiding Method Indwelling Catheter Indwelling Catheter Indwelling Catheter # Voids 2 # Bowel Movements 2 ABP, PAP, CO, CI - Last Documented Arterial Blood Pressure 120/43 - Exam No acute distress, oriented 3. No conversational dyspnea or use of accessory muscles. HEENT examination is grossly unremarkable. Mucous membranes are moist. No oral lesions. Neck supple. Full range of motion. No adenopathy thyromegaly or neck vein distention. Cardiovascular examination reveals regular rhythm rate. S1-S2 normal. No S3 or S4. No discernible murmur noted. Heart rate is 80 bpm. Lungs reveal minimal scattered rhonchi. No wheezes or crackles. Breath sounds equal bilaterally. Room air saturation is 98%. Abdomen soft bowel sounds are heard. No masses or tenderness. Extremities are intact. No cyanosis clubbing or edema. Skin is without rash or lesion. Neurologic examination is brief but nonfocal. - Labs CBC & Chem 7: 10/04/23 06:50 10/04/23 06:50 Labs: Abnormal Lab Results - Last 24 Hours (Table) 10/04/23 10/04/23 Range/Units 06:50 06:50 RBC 3.20 L (4.30-5.90) m/uL Hgb 9.6 L (13.0-17.5) gm/dL Hct 28.6 L (39.0-53.0) % RDW 16.5 H (11.5-15.5) % Lymphocytes # 0.3 L (1.0-4.8) k/uL Sodium 133 L (137-145) mmol/L BUN 31 H (9-20) mg/dL Glucose 115 H (74-99) mg/dL Total Protein 5.5 L (6.3-8.2) g/dL Albumin 3.3 L (3.5-5.0) g/dL Assessment and Plan Assessment: Status post right robotic-assisted thoracoscopy, right thoracotomy with right lower lobectomy and mediastinal lymph node dissection. Cryoablation of intercostal nerves 3 through 10, postoperative day #5. Squamous cell lung cancer recently diagnosed, but no evidence of positive lymph node based on recent bronchoscopy/EBUS. Persistent post bronchoscopy hemoptysis. Urinary retention status post Garcia catheter placement per urology. History of prostate cancer. Benign essential hypertension. Paroxysmal atrial fibrillation. Hyperlipidemia. Coronary artery disease, with prior stents. History of GI bleed while on Xarelto. GERD. Acute kidney injury. Obstructive sleep apnea with home CPAP. Plan: Plan dated October 04, 2023. Currently, the patient is resting comfortably in room 385. He is hoping to be discharged home sometime today. Cardiothoracic surgery will make that determination. He is currently on room air. He is not receiving any IV fluids. Clinically, the patient appears to be doing relatively well. He will follow-up in our office, as well as following up with cardiothoracic surgery. We will continue to follow the patient, postdischarge. No additional recommendations are made. The patient is not having any respiratory difficulty or distress. Time with Patient: Less than 30
--- NOTE | 2023-10-05 12:01 | CDI ---
Documentation Clarification Form Date: 10/05/2023 11:39:51 AM From: Veronika Barfield Phone: Admit Date: 09/29/2023 05:39:00 AM Patient Name: Den Bull Visit Number: [id number] Discharge Date: 10/04/2023 03:02:00 PM ATTENTION: The Clinical Documentation Specialists (CDI) and [facility] Coding Staff appreciate your assistance in clarifying documentation. Please respond to the clarification below the line at the bottom and electronically sign. The CDI & [facility] Coding staff will review the response and follow-up if needed. Please note: Queries are made part of the Legal Health Record. If you have any questions, please contact the author of this message via ITS. Dr. Curtis Stanley Your patient is received the following: concentrated albumin, 2u PRBC,2u [id number] platelet. Please clarify what condition/diagnosis is being treated. History/Risk Factors: RLL cx sp lobectomy, Pulm artery tear, ATN, persistent A Fib, Traumatic subcutaneous emphysema, chronic Hemoptysis, LT use of antithrombotics/antiplatelets Clinical indicators: Hgb: 09/30 10.2 10/01 10.2- 9.5 10/02 9.8 10/04 9.6 Hct: 09/30 29.1 10/01 30.7-27.3 10/02 28.5 10/03 28.4 10/04 28.6 Treatment: concentrated albumin, 2u PRBC,2u [id number] platelet What diagnosis are you treating with concentrated albumin, 2u PRBC,2u [id number] platelet? Please select all, if any, that apply [ x ] Acute blood loss anemia [ ] Acute on chronic blood loss anemia [ ] Chronic blood loss anemia [ ] Anemia due to malignancy [ ] No additional diagnosis [ ] Other, please specify [ ] Unable to determine (Template Last Reviewed: October 2020) MTDD
== END 2023-10-04 15:02 | disposition home or self-care (01) | DRG 163 ==
LOC: 2ORMAIN 05:39 → 2SICU 13:26 → 3SCARD 10-01 21:22
PROVIDERS: ADMIT Thoracic Surgery (Cardiothoracic Vascular Surgery); ATTEND Thoracic Surgery (Cardiothoracic Vascular Surgery)
PROC: 07B70ZX Excision of Thorax Lymphatic, Open Approach, Diagnostic (ICD-10-PCS; 2023-09-29)
PROC: 03QY0ZZ Repair Upper Artery, Open Approach (ICD-10-PCS; 2023-09-29)
PROC: 01580ZZ Destruction of Thoracic Nerve, Open Approach (ICD-10-PCS; 2023-09-29)
PROC: 8E0W0CZ Robotic Assisted Procedure of Trunk Region, Open Approach (ICD-10-PCS; 2023-09-29)
PROC: 0BJ08ZZ Inspection of Tracheobronchial Tree, Via Natural or Artificial Opening Endoscopic (ICD-10-PCS; 2023-09-29)
PROC: 30233N1 Transfusion of Nonautologous Red Blood Cells into Peripheral Vein, Percutaneous Approach (ICD-10-PCS; 2023-09-29)
PROC: 30233K1 Transfusion of Nonautologous Frozen Plasma into Peripheral Vein, Percutaneous Approach (ICD-10-PCS; 2023-09-29)
PROC: 3E0T3BZ Introduction of Anesthetic Agent into Peripheral Nerves and Plexi, Percutaneous Approach (ICD-10-PCS; 2023-09-29)
PROC: 3E0T33Z Introduction of Anti-inflammatory into Peripheral Nerves and Plexi, Percutaneous Approach (ICD-10-PCS; 2023-09-29)
PROC: 30233R1 Transfusion of Nonautologous Platelets into Peripheral Vein, Percutaneous Approach (ICD-10-PCS; 2023-09-29)
PROC: 0BTF0ZZ Resection of Right Lower Lung Lobe, Open Approach (ICD-10-PCS; principal; 2023-09-29 07:30)
PROC: 6A550Z2 Pheresis of Platelets, Single (ICD-10-PCS; 2023-09-30)
PROC: 0T7D7ZZ Dilation of Urethra, Via Natural or Artificial Opening (ICD-10-PCS; 2023-10-02)
PROC: 0T9B70Z Drainage of Bladder with Drainage Device, Via Natural or Artificial Opening (ICD-10-PCS; 2023-10-02)
PROC: 30233J1 Transfusion of Nonautologous Serum Albumin into Peripheral Vein, Percutaneous Approach (ICD-10-PCS; 2023-10-03)
DX: C34.31 Malignant neoplasm of lower lobe, right bronchus or lung (principal); N17.0 Acute kidney failure with tubular necrosis; I97.51 Accidental puncture and laceration of a circulatory system organ or structure during a circulatory system procedure; T79.7XXA Traumatic subcutaneous emphysema, initial encounter; I48.19 Other persistent atrial fibrillation; K52.1 Toxic gastroenteritis and colitis; R04.2 Hemoptysis; D62 Acute posthemorrhagic anemia; J93.82 Other air leak; I10 Essential (primary) hypertension; I73.9 Peripheral vascular disease, unspecified; E86.0 Dehydration; N35.812 Other bulbous urethral stricture, male; I25.10 Atherosclerotic heart disease of native coronary artery without angina pectoris; G47.33 Obstructive sleep apnea (adult) (pediatric); E78.5 Hyperlipidemia, unspecified; R33.8 Other retention of urine; N14.2 Nephropathy induced by unspecified drug, medicament or biological substance; K21.9 Gastro-esophageal reflux disease without esophagitis; I95.1 Orthostatic hypotension; R39.12 Poor urinary stream; R39.15 Urgency of urination; Y83.8 Other surgical procedures as the cause of abnormal reaction of the patient, or of later complication, without mention of misadventure at the time of the procedure; Y92.234 Operating room of hospital as the place of occurrence of the external cause; Z87.891 Personal history of nicotine dependence; Z87.19 Personal history of other diseases of the digestive system; Z85.46 Personal history of malignant neoplasm of prostate; Z95.5 Presence of coronary angioplasty implant and graft; Z79.02 Long term (current) use of antithrombotics/antiplatelets; Z79.899 Other long term (current) drug therapy; Z88.8 Allergy status to other drugs, medicaments and biological substances; Z91.048 Other nonmedicinal substance allergy status; Z92.3 Personal history of irradiation
CPT/HCPCS: 36430; 71045; 71046; 80048; 80053; 85025; 85027; 86850; 86900; 86901; 86920; 88305; 88309; 88313; 88331; 88341; 88342; 94640

== ENCOUNTER 2023-10-04 21:11 | Inpatient (IN) | payer MEDICARE ==
--- NOTE | 2023-10-04 21:34 | ED ---
Abdominal Pain HPI - General Chief Complaint: Abdominal Pain Stated Complaint: Abd extension Time Seen by Provider: 10/04/23 21:19 Source: patient, EMS Mode of arrival: EMS Limitations: no limitations - History of Present Illness Initial Comments: Den is an 83-year-old male who presents to the ER today for evaluation of persistent nausea and hiccups and abdominal distention. Patient was admitted to our hospital last week he had a right sided lobectomy due to lung cancer. Patient states that while he was hospitalized he had to do acetylcysteine neb ulized therapy and after that everything tasted bad so he did not eat or drink much throughout his stay in the hospital and he was quite nauseated. Because he has been eating or drinking also has added any significant bowel activity a couple days he did have some diarrhea immediately postoperative. Patient states that he went home yesterday however developed worsening abdominal distention and hiccups he couldn't tolerate this and hopefully return to the ER for evaluation. Patient also notes he had some postoperative urinary retention and had have urology perform a dilation to place a Garcia catheter which is draining dark urine. - Related Data Home Medications Medication Instructions Recorded Confirmed Clopidogrel Bisulfate [Plavix] 75 mg PO DAILY 09/03/17 09/26/23 Nitroglycerin Sl Tabs [Nitrostat] 0.4 mg SUBLINGUAL Q5M PRN 09/03/17 09/26/23 Ranolazine [Ranexa] 500 mg PO BID 09/03/17 09/29/23 Albuterol Nebulized [Ventolin 1.25 mg INHALATION RT-Q6H PRN 08/30/23 09/29/23 Nebulized (Accuneb)] Colchicine 0.6 mg PO DAILY PRN 08/30/23 09/29/23 Mv-Min/Folic/K1/Lycopen/Lutein 1 tab PO DAILY 08/30/23 09/29/23 [Centrum Silver Men Tablet] Omeprazole 40 mg PO HS 08/30/23 09/29/23 Tirzepatide [Mounjaro] 10 mg SQ TU 08/30/23 09/26/23 allopurinoL [Zyloprim] 300 mg PO DAILY 08/30/23 09/29/23 Fluticasone/Umeclidin/Vilanter 1 puff INHALATION RT-DAILY 09/18/23 09/29/23 [Trelegy Ellipta 100-62.5-25] Previous Rx's Medication Instructions Recorded Acetaminophen Tab [Tylenol] 650 mg PO Q4HR PRN tab 10/04/23 Benzonatate [Tessalon Perles] 200 mg PO TID #120 cap 10/04/23 Isosorbide Mononitrate ER [Imdur] 30 mg PO DAILY #30 tab 10/04/23 guaiFENesin [Mucinex] 600 mg PO Q12HR #60 tab 10/04/23 lisinopriL [Zestril] 10 mg PO DAILY tab 10/04/23 Allergies Allergy/AdvReac Type Severity Reaction Status Date / Time cortisone [Cortisone] Allergy Swelling Verified 09/29/23 06:13 and itching surgical tape Allergy "Broke Uncoded 09/29/23 06:13 out" "Got infection" Review of Systems ROS Statement: Those systems with pertinent positive or pertinent negative responses have been documented in the HPI. ROS Other: All systems not noted in ROS Statement are negative. Past Medical History Past Medical History: Atrial Fibrillation, Coronary Artery Disease (CAD), Cancer, Eye Disorder, GI Bleed, Hyperlipidemia, Hypertension, Pneumonia, Skin Disorder, Sleep Apnea/CPAP/BIPAP, Vascular Disorder Additional Past Medical History / Comment(s): Recent dx of lung CA Aug 2023,Recent dx of pneumonia Sep 2023, recent dx hemoptysis-post bronchoscopy- Sep 2023, pt states he is still coughing up blood but "It's a lot less.", back pain-increased pain with walking,Vertigo, hiatal hernia, gout, eczema, bleeds easily,uses cpap, history of prostate cancer, cataract lt eye, "I have circulation issues with my legs." "My grinder set up operator jig said we were going to deal with my lungs first before worrying about my legs.", pt reports swelling to bilat legs due to "I injured them falling off a ladder and my legs got stuck in ladder." History of Any Multi-Drug Resistant Organisms: None Reported Past Surgical History: Cholecystectomy, Heart Catheterization With Stent, Orthopedic Surgery, Prostate Surgery Additional Past Surgical History / Comment(s): Recent Bronchoscopy Aug 2023, Exploratory Abdominal Surgery; ORIF titanium/screws in LT Ankle. REPAIR BICEP TENDON LT ARM. RT CATARACT. STENTS X2. cyst removed from under chin, prostate surgery with 44 radiation txs, Watchman procedure, R lung lower lobectomy Past Anesthesia/Blood Transfusion Reactions: Previous Problems w/ Anesthesia Additional Past Anesthesia/Blood Transfusion Reaction / Comment(s): DEVELOPED AFIB AFTER CATARACT SURG 2013. No hx of blood transfusions. Date of Last Stent Placement:: 2013 Past Psychological History: No Psychological Hx Reported Smoking Status: Former smoker - Past Family History Mother Family Medical History: Coronary Artery Disease (CAD), Myocardial Infarction (SC) Additional Family Medical History / Comment(s): from myocardial infarction at 69 years old Father Family Medical History: Coronary Artery Disease (CAD), Myocardial Infarction (SC) Additional Family Medical History / Comment(s): from myocardial infarction at 69 years old General Exam Limitations: no limitations General appearance: alert Head exam: Present: atraumatic Eye exam: Present: normal appearance, PERRL ENT exam: Present: mucous membranes dry Respiratory exam: Present: chest wall tenderness, other (Well-healing incisions from recent surgery). Absent: respiratory distress Cardiovascular Exam: Present: regular rate, normal rhythm GI/Abdominal exam: Present: distended, tenderness, diminished bowel sounds. Absent: guarding, rebound Rectal exam: Present: deferred exam: Present: other (Garcia catheter in place) Extremities exam: Present: full ROM Neurological exam: Present: alert, oriented X3 Psychiatric exam: Present: normal affect, normal mood Skin exam: Present: warm, dry Course Vital Signs 10/04/23 10/04/23 21:13 23:31 Temperature 97.4 F L Pulse Rate 92 98 Respiratory 24 18 Rate Blood Pressure 148/69 128/60 O2 Sat by Pulse 98 97 Oximetry Medical Decision Making - Medical Decision Making Was pt. sent in by a medical professional or institution (, PA, CLINICAL APPLICATIONS SPECIALIST, urgent care, hospital, or senior care...) When possible be specific @ -No Did you speak to anyone other than the patient for history (EMS, parent, family, police, friend...)? What history was obtained from this source @ -Daughter at bedside Did you review nursing and triage notes (agree or disagree)? Why? @ -I reviewed and agree with nursing and triage notes Were old charts reviewed (outside hosp., previous admission, EMS record, old EKG, old radiological studies, urgent care reports/EKG's, senior care records)? Report findings @ -Recent hospitalization was reviewed Differential Diagnosis (chest pain, altered mental status, abdominal pain women, abdominal pain men, vaginal bleeding, weakness, fever, dyspnea, syncope, headache, dizziness, GI bleed, back pain, seizure, CVA, palpatations, mental health)? @ -Differential Abdominal Pain Men: Appendicitis, cholecystitis, diverticulosis, ischemic bowel, pancreatitis, hepatitis, UTI, gastroenteritis, AAA, incarcerated hernia, bowel obstruction, constipation, inflammatory bowel, hepatitis, peptic ulcer disease, splenic infarction, perforated viscus, testicular torsion, this is not meant to be an a ll-inclusive list EKG interpreted by me (3pts min.). @ -As above X-rays interpreted by me (1pt min.). @ -X-ray concerning for an small bowel obstruction versus ileus or air-fluid levels noted CT interpreted by me (1pt min.). @ -T with some gastric distention concerning for small bowel obstruction versus postop ileus U/S interpreted by me (1pt. min.). @ -None done What testing was considered but not performed or refused? (CT, X-rays, U/S, labs)? Why? @ -None What meds were considered but not given or refused? Why? @ -None Did you discuss the management of the patient with other professionals (professionals i.e. , PA, CLINICAL APPLICATIONS SPECIALIST, lab, RT, psych nurse, social service agency director, bark spudder, teacher, community chest officer, case picker)? Give summary @ -Admitting physician Dr. Viveros, patient's surgeon Dr. Stanley Was smoking cessation discussed for >3mins.? @ -No Was critical care preformed (if so, how long)? @ -No Were there social determinants of health that impacted care today? How? (Homelessness, low income, unemployed, alcoholism, drug addiction, tr ansportation, low edu. Level, literacy, decrease access to med. care, alf, rehab)? @ -No Was there de-escalation of care discussed even if they declined (Discuss DNR or withdrawal of care, Hospice)? DNR status @ -No What co-morbidities impacted this encounter? (DM, HTN, Smoking, COPD, CAD, Cancer, CVA, ARF, Chemo, Hep., AIDS, mental health diagnosis, sleep apnea, morbid obesity)? @ -Obesity, lung cancer Was patient admitted / discharged? Hospital course, mention meds given and rou te, prescriptions, significant lab abnormalities, going to OR and other pertinent info. @ -Admit Patient was seen and evaluated, history is obtained from patient and review of medical record. History and physical exam are concerning for a likely small bowel obstructive versus postop ileus. X-ray shows air-fluid levels, patient was given a small dose of for said and an NG tube was placed without incident. Computed tomography scan confirms early small bowel surgeon versus ileus. Patient care was discussed with patient's primary care Dr. Viveros who accepts the admission. Patient's surgeon was notified of the need for readmission postoperatively. Undiagnosed new problem with uncertain prognosis? @ -No Drug Therapy requiring intensive monitoring for toxicity (Heparin, Nitro, Insulin, Cardizem)? @ -No Were any procedures done? @ -No Diagnosis/symptom? @ -Postop ileus versus early small bowel obstruction Acute, or Chronic, or Acute on Chronic? @ -Acute Uncomplicated (without systemic symptoms) or Complicated (systemic symptoms)? @ -default Side effects of treatment? @ -No Exacerbation, Progression, or Severe Exacerbation? @ -No Poses a threat to life or bodily function? How? (Chest pain, USA, SC, pneumonia, PE, COPD, DKA, ARF, appy, cholecystitis, CVA, Diverticulitis, Homicidal, Suicidal, threat to staff... and all critical care pts) @ -No - Lab Data Result diagrams: 10/04/23 21:38 10/04/23 21:38 Lab Results 10/04/23 10/04/23 10/04/23 Range/Units 21:38 21:38 21:38 WBC 6.5 (3.8-10.6) k/uL RBC 3.37 L (4.30-5.90) m/uL Hgb 10.2 L (13.0-17.5) gm/dL Hct 29.9 L (39.0-53.0) % MCV 88.6 (80.0-100.0) fL MCH 30.2 (25.0-35.0) pg MCHC 34.1 (31.0-37.0) g/dL RDW 16.6 H (11.5-15.5) % Plt Count 336 (150-450) k/uL MPV 7.7 Neutrophils % 81 % Lymphocytes % 7 % Monocytes % 8 % Eosinophils % 1 % Basophils % 0 % Neutrophils # 5.3 (1.3-7.7) k/uL Lymphocytes # 0.4 L (1.0-4.8) k/uL Monocytes # 0.5 (0-1.0) k/uL Eosinophils # 0.1 (0-0.7) k/uL Basophils # 0.0 (0-0.2) k/uL Poikilocytosis Slight Anisocytosis Slight Sodium 134 L (137-145) mmol/L Potassium 4.0 (3.5-5.1) mmol/L Chloride 103 (98-107) mmol/L Carbon Dioxide 22 (22-30) mmol/L Anion Gap 9 mmol/L BUN 30 H (9-20) mg/dL Creatinine 1.22 (0.66-1.25) mg/dL Est GFR (CKD-EPI)AfAm 63 (>60 ml/min/1.73 sqM) Est GFR (CKD-EPI)NonAf 55 (>60 ml/min/1.73 sqM) Glucose 118 H (74-99) mg/dL Plasma Lactic Acid Yeison (0.7-2.0) mmol/L Calcium 9.0 (8.4-10.2) mg/dL Magnesium 1.8 (1.6-2.3) mg/dL Total Bilirubin 1.0 (0.2-1.3) mg/dL AST 33 (17-59) U/L ALT 33 (4-49) U/L Alkaline Phosphatase 66 (38-126) U/L Total Protein 5.7 L (6.3-8.2) g/dL Albumin 3.5 (3.5-5.0) g/dL Lipase 146 (23-300) U/L Urine Color Light Red Urine Appearance Cloudy (Clear) Urine pH 5.5 (5.0-8.0) Ur Specific [place] 1.029 (1.001-1.035) Urine Protein 2+ H (Negative) Urine Glucose (UA) Negative (Negative) Urine Ketones Negative (Negative) Urine Blood Large H (Negative) Urine Nitrite Negative (Negative) Urine Bilirubin Negative (Negative) Urine Urobilinogen 2.0 (<2.0) mg/dL Ur Leukocyte Esterase Moderate H (Negative) Urine RBC >182 H (0-5) /hpf Urine WBC 17 H (0-5) /hpf Urine Bacteria Occasional H (None) /hpf Hyaline Casts 3 H (0-2) /lpf Urine Mucus Occasional H (None) /hpf 10/04/23 Range/Units 21:38 WBC (3.8-10.6) k/uL RBC (4.30-5.90) m/uL Hgb (13.0-17.5) gm/dL Hct (39.0-53.0) % MCV (80.0-100.0) fL MCH (25.0-35.0) pg MCHC (31.0-37.0) g/dL RDW (11.5-15.5) % Plt Count (150-450) k/uL MPV Neutrophils % % Lymphocytes % % Monocytes % % Eosinophils % % Basophils % % Neutrophils # (1.3-7.7) k/uL Lymphocytes # (1.0-4.8) k/uL Monocytes # (0-1.0) k/uL Eosinophils # (0-0.7) k/uL Basophils # (0-0.2) k/uL Poikilocytosis Anisocytosis Sodium (137-145) mmol/L Potassium (3.5-5.1) mmol/L Chloride (98-107) mmol/L Carbon Dioxide (22-30) mmol/L Anion Gap mmol/L BUN (9-20) mg/dL Creatinine (0.66-1.25) mg/dL Est GFR (CKD-EPI)AfAm (>60 ml/min/1.73 sqM) Est GFR (CKD-EPI)NonAf (>60 ml/min/1.73 sqM) Glucose (74-99) mg/dL Plasma Lactic Acid Yeison 0.9 (0.7-2.0) mmol/L Calcium (8.4-10.2) mg/dL Magnesium (1.6-2.3) mg/dL Total Bilirubin (0.2-1.3) mg/dL AST (17-59) U/L ALT (4-49) U/L Alkaline Phosphatase (38-126) U/L Total Protein (6.3-8.2) g/dL Albumin (3.5-5.0) g/dL Lipase (23-300) U/L Urine Color Urine Appearance (Clear) Urine pH (5.0-8.0) Ur Specific [place] (1.001-1.035) Urine Protein (Negative) Urine Glucose (UA) (Negative) Urine Ketones (Negative) Urine Blood (Negative) Urine Nitrite (Negative) Urine Bilirubin (Negative) Urine Urobilinogen (<2.0) mg/dL Ur Leukocyte Esterase (Negative) Urine RBC (0-5) /hpf Urine WBC (0-5) /hpf Urine Bacteria (None) /hpf Hyaline Casts (0-2) /lpf Urine Mucus (None) /hpf Disposition Clinical Impression: Small bowel obstruction, Postoperative ileus Disposition: ADMITTED IP TO THIS HOSP Condition: Stable Is patient prescribed a controlled substance at d/c from ED?: No Referrals: Kojo Viveros MD [Primary Care Provider] - 1-2 days
[2023-10-04 21:59] LABS: Anisocytosis Slight; Basophils % (A) 0 %; Eosinophils # (A) 0.1 k/uL (0-0.7); Eosinophils % (A) 1 %; HCT 29.9 % (39.0-53.0); HGB 10.2 gm/dL (13.0-17.5); Lymphocytes # (A) 0.4 k/uL (1.0-4.8); Lymphocytes % (A) 7 %; MCH 30.2 pg (25.0-35.0); MCHC 34.1 g/dL (31.0-37.0); MCV 88.6 fL (80.0-100.0); Mean Platelet Volume 7.7; Monocytes # (A) 0.5 k/uL (0-1.0); Monocytes % (A) 8 %; Neutrophils # (A) 5.3 k/uL (1.3-7.7); Neutrophils % (A) 81 %; Platelet Count 336 k/uL (150-450); Poikilocytosis Slight; RBC 3.37 m/uL (4.30-5.90); RDW 16.6 % (11.5-15.5); WBC 6.5 k/uL (3.8-10.6)
[2023-10-04 22:14] LABS: Appearance,Urine Cloudy (Clear); Bacteria,Urine Occasional /hpf; Bilirubin,Urine Negative (Negative); Blood,Urine Large (Negative); Color,Urine Light Red; Glucose,Urine (UA) Negative (Negative); Hyaline Casts,Urine 3 /lpf (0-2); Ketones,Urine Negative (Negative); Leukocyte Esterase,Urine Moderate (Negative); Mucus,Urine Occasional /hpf; Nitrite,Urine Negative (Negative); PH, Urine 5.5 (5.0-8.0); Protein,Urine 2+ (Negative); RBC,Urine >182 /hpf (0-5); Specific Gravity,Urine 1.029 (1.001-1.035); WBC,Urine 17 /hpf (0-5)
[2023-10-04 22:15] LABS: ALT 33 U/L (4-49); AST 33 U/L (17-59); African American GFR (CKD) 63 (>60 ml/min/1.73 sqM); Albumin 3.5 g/dL (3.5-5.0); Alkaline Phosphatase 66 U/L (38-126); Anion Gap 9 mmol/L; Blood Urea Nitrogen 30 mg/dL (9-20); Carbon Dioxide 22 mmol/L (22-30); Chloride 103 mmol/L (98-107); Glucose 118 mg/dL (74-99); Lipase 146 U/L (23-300); Magnesium 1.8 mg/dL (1.6-2.3); Non-African American GFR(CKD) 55 (>60 ml/min/1.73 sqM); Sodium 134 mmol/L (137-145); Total Protein 5.7 g/dL (6.3-8.2)
--- NOTE | 2023-10-04 22:38 | XR ---
EXAMINATION TYPE: XR KUB DATE OF EXAM: 10/04/2023 10:20 PM CLINICAL HISTORY: Abdominal distention and belching with diminished urine output. Recent right lung partial pneumonectomy. TECHNIQUE: 4 Upright KUB images of the abdomen are obtained. COMPARISON: CT abdomen and pelvis 2018. FINDINGS: Gas prominent small bowel loops throughout the abdomen with multiple air-fluid levels is se en. There is small right pleural effusion with adjacent right lung subcutaneous emphysema. Cholecyste ctomy clips are now present. Osseous structures are intact. IMPRESSION: Overall nonspecific bowel gas pattern. Possible ileus versus distal small bowel obstructi on. Follow-up is advised.
[2023-10-04] MEDS: MIDAZOLAM 1 MG/ML 5 ML VIAL IV STA (23:03)
--- NOTE | 2023-10-04 23:28 | CT ---
EXAMINATION TYPE: CT abdomen pelvis wo/w con DATE OF EXAM: 10/04/2023 COMPARISON: PET CT September 08, 2023 HISTORY: Pt to ED with c/o abdominal distension, excessive belching, decreased urine output that bega n tonight. Pt was d/c home from this hospital today after having a R lung lobectomy on . De nies n/v/d. Recent dx of lung CA Aug 2023,Recent dx of pneumonia Sep 2023, recent dx hemoptysis-post bronchoscopy- Sep 2023, pt states he is still coughing up blood but "It's a lot less.", back pain-inc reased pain with walking,Vertigo, hiatal hernia, gout, eczema, bleeds easily,uses cpap, history of pr ostate cancer, cataract lt eye, "I have circulation issues with my legs." "My tail board man said we we re going to deal with my lungs first before worrying about my legs.", pt reports swelling to bilat le gs due to "I injured them falling off a ladder and my legs got stuck in ladder." cholecystectomy, hea rt cath w/ stents, prostate surgery, rt lung lower lobectomy CT DLP: 3842.8 mGycm, Automated Exposure Control for Dose Reduction was Utilized. CONTRAST: CT scan of the abdomen and pelvis is performed without oral and without and with IV Contrast, patient injected with 80 mL of Isovue 300. FINDINGS: LUNG BASES: Small to tiny right-sided pleural fluid collection with some scattered foci of air. Promi nent adjacent subcutaneous emphysema is partially imaged. Linear density consistent with surgical sut ures extending from the right hilum is seen. LIVER/GB: Cholecystectomy clips are redemonstrated. Subcentimeter low dense lesion left hepatic lobe axial image 25 is too small to further characterize but presumably benign similar to prior. PANCREAS: No significant abnormality is seen. SPLEEN: No significant abnormality is seen. ADRENALS: No significant abnormality is seen. KIDNEYS: Cortical thinning in both kidneys redemonstrated. Postcontrast images show symmetrical medul monica uptake and excretion without hydronephrosis. Garcia catheter decompresses bladder. BOWEL: Mild to moderately gas-distended stomach. Gas and fluid in not significantly dilated duodenal sweep. Prominent small bowel loops with air-fluid levels throughout the abdomen and anterior pelvis. Small bowel loops dilated up to roughly 4.2 cm. Slight gaseous prominence of the transverse colon. Sl ight fluid and gas prominence of the right colon. Remainder of colon shows no suspicious dilatation. There is fluid nondistended terminal ileum. Somewhat prominent fluid-filled distal ileal loops are se en just proximal to this. No free air in the abdomen. PROSTATE/SEMINAL VESICLES: No gross abnormality seen. LYMPH NODES: No greater than 1cm abdominal or pelvic lymph nodes are appreciated. OSSEOUS STRUCTURES: Moderate disc space narrowing at L5-S1 level. Bridging osteophytes in the thoraci c spine. OTHER: Severe calcified plaque of the aorta extends into branch vessels. Probable significant stenosi s of the SMA due to heavily calcified plaque. IMPRESSION: 1. Overall nonspecific bowel gas pattern is confirmed. Suspect predominantly ileus. A partial distal small bowel obstruction not entirely excluded. 2. New small to tiny right pleural fluid collection with some foci of air is nonspecific but presumed product of recent partial pneumonectomy.
[2023-10-04] MEDS: cefTRIAXone IN SWFI 1,000 MG/10 ML SYRINGE IVP STA (23:48)
--- NOTE | 2023-10-05 00:09 | XR ---
EXAMINATION TYPE: XR chest 1V portable DATE OF EXAM: 10/04/2023 COMPARISON: Chest x-ray earlier today HISTORY: NG tube placement TECHNIQUE: Single frontal view of the chest is obtained. FINDINGS: There is new nasogastric tube projecting below diaphragm. Stable small right pleural effus ion. Significant overlying right-sided subcutaneous emphysema redemonstrated. Left lung remains clear . Enlarged heart redemonstrated. Left lung remains grossly clear. Osseous structures are intact. IMPRESSION: The new Nasogastric tube projects below diaphragm. Other findings stable.
[2023-10-05] MEDS ORDERED: NALOXONE 0.4 MG/ML 1 ML VIAL IV PRN (00:24)
[2023-10-05] MEDS: MORPHINE SULFATE 4 MG/ML SYRINGE IVP PRN (03:10)
[2023-10-05] MEDS ORDERED: COLCHICINE 0.6 MG EACH PO PRN (08:26)
[2023-10-05] MEDS ORDERED: ALBUTEROL NEBULIZED 1.25 MG/3 ML INHALATION PRN (08:26)
[2023-10-05] MEDS ORDERED: NITROGLYCERIN SL TABS 0.4 MG TAB SUBLINGUAL PRN (08:26)
[2023-10-05] MEDS: guaiFENesin 600 MG TABLET.ER PO SCH (08:58)
[2023-10-05] MEDS: BENZONATATE 100 MG CAP PO SCH (08:58)
[2023-10-05] MEDS: allopurinoL 300 MG TAB PO SCH (08:58)
[2023-10-05] MEDS: ISOSORBIDE MONONITRATE ER 30 MG TAB.ER.24H PO SCH (08:59)
[2023-10-05] MEDS: RANOLAZINE 500 MG TAB.ER.12H PO SCH (08:59)
[2023-10-05] MEDS: MULTIVITAMINS, THERA 1 EACH TAB PO SCH (08:59)
[2023-10-05] MEDS: lisinopriL 10 MG TAB PO SCH (08:59)
[2023-10-05] MEDS: CLOPIDOGREL 75 MG TAB PO SCH (09:01)
[2023-10-05] MEDS: IPRATROPIUM-ALBUTEROL 3 ML NEB INHALATION SCH (12:34)
--- NOTE | 2023-10-05 12:54 | P.GSCN ---
History of Present Illness Consult date: 10/05/23 History of present illness: CHIEF COMPLAINT: Abdominal pain HISTORY OF PRESENT ILLNESS: This is a 83-year-old male who presented with abdominal pain, abdominal distention with nausea. Patient discharged on 10/04/2023 and 4 hours later returned to the ER with the abdominal distention. He had recent hospitalization for his lung cancer and right lobectomy. Patient reports that for dinner last night he ate turkey and mashed potatoes. And then shortly after eating abdomen became very distended he was having pain with nausea. No vomiting. He reports that he was burping a lot. He reports his last bowel movements was Tuesday and it was a liquid brown bowel movement. He has had no gas for 2 days. He denies any prior history of bowel obstruction. Abdominal surgeries include an exploratory laparotomy, cholecystectomy and prostate surgery. Patient had a CT scan abdomen and pelvis completed that had shown ileus versus a partial small bowel obstruction. NG tube is in place and has had 400 greenish-brown output. Patient reports since the NG tube has been placed he has had some decrease in his abdominal distention but the abdominal pain has resolved. PAST MEDICAL HISTORY: Lung cancer, Atrial Fibrillation, Coronary Artery Disease (CAD), Cancer, Eye Disorder, GI Bleed, Hyperlipidemia, Hypertension, Pneumonia, Skin Disorder, Sleep Apnea/CPAP/BIPAP, Vascular Disorder, prostate cancer, coronary artery disease with stents PAST SURGICAL HISTORY: Cholecystectomy, Heart Catheterization With Stent, Orthopedic Surgery, Prostate Surgery, Recent Bronchoscopy Aug 2023, Exploratory Abdominal Surgery; ORIF titanium/screws in LT Ankle. REPAIR BICEP TENDON LT ARM. RT CATARACT. STENTS X2. cyst removed from under chin, prostate surgery with 44 radiation txs, Watchman procedure, R lung lower lobectomy MEDICATIONS: See below ALLERGIES: See below SOCIAL HISTORY: No illicit drug use. REVIEW OF SYSTEMS: CONSTITUTIONAL: Denies fever or chills. HEENT: Denies blurred vision, vision changes, or eye pain. Denies hemoptysis CARDIOVASCULAR: Denies chest pain or pressure. RESPIRATORY: No shortness of breath. GASTROINTESTINAL: See HPI for pertinent findings HEMATOLOGIC: Denies bleeding disorders. GENITOURINARY: Denies any blood in urine or increased urinary frequency. SKIN: Denies pruitis. Denies rash. PHYSICAL EXAM: VITAL SIGNS: Reviewed GENERAL: Well-developed in no acute distress. HEENT: No sclera icterus. Extraocular movements grossly intact. Moist buccal mucosa. Head is atraumatic, normocephalic. No nasal drainage. ABDOMEN: Distended. Nontender. Tympanic NEUROLOGIC: Alert and oriented. Cranial nerves II through XII grossly intact. LABORATORY DATA: WBC 6.5 Hgb 10.2 platelets 336 Sodium is 134 potassium 4.0 creatinine 1.22 magnesium 1.8 Lactic acid 0.9 IMAGING: CT scan abdomen pelvis overall nonobstructive bowel gas pattern is confirmed. Suspect predominantly ileus. A partial distal small bowel obstruction not entirely excluded. New small to tiny pleural fluid collection with some foci of air nonspecific but presumed product of recent partial pneumonectomy. ASSESSMENT: 1. Abdominal ileus likely due to recent surgery. CT scan reports suspect predominant ileus. Partial distal small bowel obstruction not entirely excluded. 2. Lung cancer with recent right lobectomy PLAN: -Continue NG tube for decompression -Keep patient n.p.o., except for ice chips -Okay to clamp NG tube and have patient ambulate -Start IV fluids at 75ml/hr Physician Industrial Hygiene Engineer note has been reviewed by physician. Signing provider agrees with the documented findings, assessment, and plan of care. Past Medical History Past Medical History: Atrial Fibrillation, Coronary Artery Disease (CAD), Cancer, Eye Disorder, GI Bleed, Hyperlipidemia, Hypertension, Pneumonia, Skin Disorder, Sleep Apnea/CPAP/BIPAP, Vascular Disorder Additional Past Medical History / Comment(s): dx of lung CA Aug 2023, pneumonia Sep 2023, recent dx hemoptysis-post bronchoscopy- Sep 2023, pt states he is still coughing up blood but "It's a lot less.", back pain-increased pain with walking,Vertigo, hiatal hernia, gout, eczema, bleeds easily, uses cpap, history of prostate cancer, cataract lt eye, "I have circulation issues with my legs." "My patent litigation associate said we were going to deal with my lungs first before worrying about my legs.", pt reports swelling to bilat legs due to "I injured them falling off a ladder and my legs got stuck in ladder." History of Any Multi-Drug Resistant Organisms: None Reported Past Surgical History: Cholecystectomy, Heart Catheterization With Stent, Orthopedic Surgery, Prostate Surgery Additional Past Surgical History / Comment(s): Recent Bronchoscopy Aug 2023, Exploratory Abdominal Surgery; ORIF titanium/screws in LT Ankle. REPAIR BICEP TENDON LT ARM. RT CATARACT. STENTS X2. cyst removed from under chin, prostate surgery with 44 radiation txs, Watchman procedure, R lung lower lobectomy 09/28 Past Anesthesia/Blood Transfusion Reactions: Previous Problems w/ Anesthesia Additional Past Anesthesia/Blood Transfusion Reaction / Comm: DEVELOPED AFIB AFTER CATARACT SURG 2013. No hx of blood transfusions. Date of Last Stent Placement:: 2013 Past Psychological History: No Psychological Hx Reported Smoking Status: Former smoker Past Alcohol Use History: None Reported Additional Past Alcohol Use History / Comment(s): SMOKED 20 YRS, 1 PPD, QUIT 1979 Past Drug Use History: None Reported - Past Family History Mother Family Medical History: Coronary Artery Disease (CAD), Myocardial Infarction (CA) Additional Family Medical History / Comment(s): from myocardial infarction at 69 years old Father Family Medical History: Coronary Artery Disease (CAD), Myocardial Infarction (CA) Additional Family Medical History / Comment(s): from myocardial infarction at 69 years old Medications and Allergies Home Medications Medication Instructions Recorded Confirmed Type Clopidogrel Bisulfate [Plavix] 75 mg PO DAILY 09/03/17 10/05/23 History Nitroglycerin Sl Tabs [Nitrostat] 0.4 mg SUBLINGUAL Q5M PRN 09/03/17 10/05/23 History Ranolazine [Ranexa] 500 mg PO BID 09/03/17 10/05/23 History Albuterol Nebulized [Ventolin 1.25 mg INHALATION RT-Q6H PRN 08/30/23 10/05/23 History Nebulized (Accuneb)] Colchicine 0.6 mg PO DAILY PRN 08/30/23 10/05/23 History Mv-Min/Folic/K1/Lycopen/Lutein 1 tab PO DAILY 08/30/23 10/05/23 History [Centrum Silver Men Tablet] Omeprazole 40 mg PO HS 08/30/23 10/05/23 History Tirzepatide [Mounjaro] 10 mg SQ TU 08/30/23 10/05/23 History allopurinoL [Zyloprim] 300 mg PO DAILY 08/30/23 10/05/23 History Fluticasone/Umeclidin/Vilanter 1 puff INHALATION RT-DAILY 09/18/23 10/05/23 History [Trelegy Ellipta 100-62.5-25] Acetaminophen Tab [Tylenol] 650 mg PO Q4HR PRN tab 10/04/23 10/05/23 Rx Benzonatate [Tessalon Perles] 200 mg PO TID #120 cap 10/04/23 10/05/23 Rx Isosorbide Mononitrate ER [Imdur] 30 mg PO DAILY #30 tab 10/04/23 10/05/23 Rx guaiFENesin [Mucinex] 600 mg PO Q12HR #60 tab 10/04/23 10/05/23 Rx lisinopriL [Zestril] 10 mg PO DAILY tab 10/04/23 10/05/23 Rx Allergies Allergy/AdvReac Type Severity Reaction Status Date / Time cortisone [Cortisone] Allergy Swelling Verified 10/05/23 06:35 and itching surgical tape Allergy "Broke Uncoded 09/29/23 06:13 out" "Got infection" Surgical - Exam Vital Signs Temp Pulse Resp BP Pulse Ox 97.4 F L 92 24 148/69 98 10/04/23 21:13 10/04/23 21:13 10/04/23 21:13 10/04/23 21:13 10/04/23 21:13 Results - Labs 10/04/23 21:38 10/04/23 21:38 Abnormal Lab Results - Last 24 Hours (Table) 10/04/23 10/04/23 10/04/23 Range/Units 21:38 21:38 21:38 RBC 3.37 L (4.30-5.90) m/uL Hgb 10.2 L (13.0-17.5) gm/dL Hct 29.9 L (39.0-53.0) % RDW 16.6 H (11.5-15.5) % Lymphocytes # 0.4 L (1.0-4.8) k/uL Sodium 134 L (137-145) mmol/L BUN 30 H (9-20) mg/dL Glucose 118 H (74-99) mg/dL Total Protein 5.7 L (6.3-8.2) g/dL Urine Protein 2+ H (Negative) Urine Blood Large H (Negative) Ur Leukocyte Esterase Moderate H (Negative) Urine RBC >182 H (0-5) /hpf Urine WBC 17 H (0-5) /hpf Urine Bacteria Occasional H (None) /hpf Hyaline Casts 3 H (0-2) /lpf Urine Mucus Occasional H (None) /hpf Diabetes panel 10/04/23 Range/Units 21:38 Sodium 134 L (137-145) mmol/L Potassium 4.0 (3.5-5.1) mmol/L Chloride 103 (98-107) mmol/L Carbon Dioxide 22 (22-30) mmol/L BUN 30 H (9-20) mg/dL Creatinine 1.22 (0.66-1.25) mg/dL Glucose 118 H (74-99) mg/dL Calcium 9.0 (8.4-10.2) mg/dL AST 33 (17-59) U/L ALT 33 (4-49) U/L Alkaline Phosphatase 66 (38-126) U/L Total Protein 5.7 L (6.3-8.2) g/dL Albumin 3.5 (3.5-5.0) g/dL Calcium panel 10/04/23 Range/Units 21:38 Calcium 9.0 (8.4-10.2) mg/dL Albumin 3.5 (3.5-5.0) g/dL Pituitary panel 10/04/23 Range/Units 21:38 Sodium 134 L (137-145) mmol/L Potassium 4.0 (3.5-5.1) mmol/L Chloride 103 (98-107) mmol/L Carbon Dioxide 22 (22-30) mmol/L BUN 30 H (9-20) mg/dL Creatinine 1.22 (0.66-1.25) mg/dL Glucose 118 H (74-99) mg/dL Calcium 9.0 (8.4-10.2) mg/dL Adrenal panel 10/04/23 Range/Units 21:38 Sodium 134 L (137-145) mmol/L Potassium 4.0 (3.5-5.1) mmol/L Chloride 103 (98-107) mmol/L Carbon Dioxide 22 (22-30) mmol/L BUN 30 H (9-20) mg/dL Creatinine 1.22 (0.66-1.25) mg/dL Glucose 118 H (74-99) mg/dL Calcium 9.0 (8.4-10.2) mg/dL Total Bilirubin 1.0 (0.2-1.3) mg/dL AST 33 (17-59) U/L ALT 33 (4-49) U/L Alkaline Phosphatase 66 (38-126) U/L Total Protein 5.7 L (6.3-8.2) g/dL Albumin 3.5 (3.5-5.0) g/dL
[2023-10-05] MEDS: NA PHOS,M-B/NA PHOS,DI-BA 133 ML ENEMA RECTAL STA (13:16)
[2023-10-05] MEDS: SODIUM CHLORIDE 0.9% 1,000 ML IV SCH (13:53)
--- NOTE | 2023-10-05 14:30 | P.GSCN ---
History of Present Illness Consult date: 10/05/23 Reason for Consult: Recent right lower lobectomy on September 29, 2023 Requesting physician: Kojo Viveros History of present illness: This is an 83-year-old gentleman who follows on an outpatient basis for his primary care service with Dr. Kojo Viveros and he also follows with Dr. Kirsten Srivastava for his pulmonology care. He has a past medical history significant for squamous cell carcinoma of the right lower lobe, status post right lower lobectomy on September 29, [address] Stanley, history of chronic cough with hemoptysis status post lung biopsy, coronary artery disease with history of PCI and is maintained on Plavix as an outpatient, chronic persistent atrial fibrillation with failed cardioversion attempt, hypertension, hyperlipidemia, history of prostate cancer status post radiation treatments, remote history of tobacco dependence, obstructive sleep apnea with home CPAP use, history of acute kidney injury and he also had some urine retention after his right lower lobectomy requiring discharge home with a Elias catheter in place managed by urology. The patient was discharged home on October 04, 2023, and presented to the emergency department here at [facility] about 4 hours after discharge with complaints of persistent nausea, hiccups and abdominal distention. He denies any fever, chills, vomiting, shortness of breath, chest pain/pressure, hemoptysis, hematemesis, visual disturbances, headache, presyncope or syncope. He reports he did have 1 bowel movement on October 03, 2023 which was diarrhea. Subsequently, due to the the complaints of nausea, hiccups and abdominal distention he presented to the emergency department here at [facility] via EMS for further evaluation and treatment recommendations. The patient underwent a KUB x-ray which showed overall nonspecific bowel gas loops throughout the abdomen with multiple air fluid level seen, and possible ileus versus distal small bowel obstruction. Due to the findings on the KUB x-ray the patient underwent a CT scan of his abdomen pelvis without and with contrast which the report demonstrated an overall nonspecific bowel gas pattern confirmed, suspect predominantly ileus, a partial distal small bowel obstruction could not entirely be excluded and a new small tiny right pleural fluid collection with some foci of air is nonspecific but presumed product of recent right lower lobectomy. Due to the findings on the above- mentioned studies the patient had a nasogastric tube placed to intermittent wall suction which is draining a small amount of bilious drainage. For further evalu ation a chest x-ray was completed which demonstrated the nasogastric tube to project below the diaphragm. Laboratory results on admission showed a WBC count of 6.5, hemoglobin 10.2, hematocrit 29.9, platelets 336, sodium 134, potassium 4.0, chloride 103, BUN 30, creatinine 1.22, glucose 118, calcium 9.0, magnesium 1.8, and albumin 3.5. Urinalysis demonstrated moderate leukocytes esterase, urine RBCs greater than 182, urine WBC 17, occasional bacteria and occasional mucus. Subsequently, due to the patient being known to our service a consult was placed to Dr. Stanley for further evaluation and treatment recommendations. Review of Systems A 14 point review of systems was completed and was negative except as mentioned in the HPI. Past Medical History Past Medical History: Atrial Fibrillation, Coronary Artery Disease (CAD), Cancer, Eye Disorder, GERD/Reflux, GI Bleed, Hyperlipidemia, Hypertension, Pneumonia, Prostate Disorder, Skin Disorder, Sleep Apnea/CPAP/BIPAP, Vascular Disorder Additional Past Medical History / Comment(s): dx of lung CA Aug 2023, pneumonia Sep 2023, recent dx hemoptysis-post bronchoscopy- Sep 2023, pt states he is still coughing up blood but "It's a lot less.", back pain-increased pain with walking,Vertigo, hiatal hernia, gout, eczema, bleeds easily, uses cpap, history of prostate cancer, cataract lt eye, "I have circulation issues with my legs." "My medical records director said we were going to deal with my lungs first before worrying about my legs.", pt reports swelling to bilat legs due to "I injured them falling off a ladder and my legs got stuck in ladder." History of Any Multi-Drug Resistant Organisms: None Reported Past Surgical History: Cholecystectomy, Heart Catheterization With Stent, Orthopedic Surgery, Prostate Surgery Additional Past Surgical History / Comment(s): Recent Bronchoscopy Aug 2023, Exploratory Abdominal Surgery; ORIF titanium/screws in LT Ankle. REPAIR BICEP TENDON LT ARM. RT eye CATARACT. STENTS X2. cyst removed from under chin, prostate surgery with 44 radiation txs, Watchman procedure, R lung lower lobectomy 09/28 Past Anesthesia/Blood Transfusion Reactions: Previous Problems w/ Anesthesia Additional Past Anesthesia/Blood Transfusion Reaction / Comm: DEVELOPED AFIB AFTER CATARACT SURG 2013. No hx of blood transfusions. Date of Last Stent Placement:: 2013 Past Psychological History: No Psychological Hx Reported Smoking Status: Former smoker Past Alcohol Use History: None Reported Additional Past Alcohol Use History / Comment(s): SMOKED 20 YRS, 1 PPD, QUIT 1979 Past Drug Use History: None Reported - Past Family History Mother Family Medical History: Coronary Artery Disease (CAD), Myocardial Infarction (RI) Additional Family Medical History / Comment(s): from myocardial infarction at 69 years old Father Family Medical History: Coronary Artery Disease (CAD), Myocardial Infarction (RI) Additional Family Medical History / Comment(s): from myocardial infarction at 69 years old Medications and Allergies Home Medications Medication Instructions Recorded Confirmed Type Clopidogrel Bisulfate [Plavix] 75 mg PO DAILY 09/03/17 10/05/23 History Nitroglycerin Sl Tabs [Nitrostat] 0.4 mg SUBLINGUAL Q5M PRN 09/03/17 10/05/23 History Ranolazine [Ranexa] 500 mg PO BID 09/03/17 10/05/23 History Albuterol Nebulized [Ventolin 1.25 mg INHALATION RT-Q6H PRN 08/30/23 10/05/23 History Nebulized (Accuneb)] Colchicine 0.6 mg PO DAILY PRN 08/30/23 10/05/23 History Mv-Min/Folic/K1/Lycopen/Lutein 1 tab PO DAILY 08/30/23 10/05/23 History [Centrum Silver Men Tablet] Omeprazole 40 mg PO HS 08/30/23 10/05/23 History Tirzepatide [Mounjaro] 10 mg SQ TU 08/30/23 10/05/23 History allopurinoL [Zyloprim] 300 mg PO DAILY 08/30/23 10/05/23 History Fluticasone/Umeclidin/Vilanter 1 puff INHALATION RT-DAILY 09/18/23 10/05/23 History [Trelegy Ellipta 100-62.5-25] Acetaminophen Tab [Tylenol] 650 mg PO Q4HR PRN tab 10/04/23 10/05/23 Rx Benzonatate [Tessalon Perles] 200 mg PO TID #120 cap 10/04/23 10/05/23 Rx Isosorbide Mononitrate ER [Imdur] 30 mg PO DAILY #30 tab 10/04/23 10/05/23 Rx guaiFENesin [Mucinex] 600 mg PO Q12HR #60 tab 10/04/23 10/05/23 Rx lisinopriL [Zestril] 10 mg PO DAILY tab 10/04/23 10/05/23 Rx Allergies Allergy/AdvReac Type Severity Reaction Status Date / Time cortisone [Cortisone] Allergy Swelling Verified 10/05/23 06:35 and itching surgical tape Allergy "Broke Uncoded 09/29/23 06:13 out" "Got infection" Surgical - Exam Vital Signs Temp Pulse Resp BP Pulse Ox 97.4 F L 92 24 148/69 98 10/04/23 21:13 10/04/23 21:13 10/04/23 21:13 10/04/23 21:13 10/04/23 21:13 - General well developed, well nourished, no distress, no pain, obese - Eyes PERRL, normal ocular movement, no pale, no icteric - ENT normal pinna, normal nares, normal mucosa, no hearing loss, no congestion - Neck Neck is supple, no JVD. no masses, no bruits, trachea midline, no venous distension - Respiratory Lungs essentially clear throughout, diminished to his bilateral bases right greater than left. No wheezes, rhonchi or crackles. Some scant subcutaneous emphysema to his right upper chest. Respirations are symmetrical nonlabored. - Cardiovascular Irregular rhythm and controlled rate. S1 and S2 present, negative for S3, gallop or murmur. - Abdomen Abdomen is soft, nontender and is slightly distended. Tympanic abdominal sounds. NG tube in place to low intermittent wall suction, with bilious drainage. - Genitourinary Elias catheter for history of urine retention: Clear yellow urine - Rectum Deferred - Integumentary Right sided thoracotomy incision is clean, dry and approximated. No drainage or redness is present. Skin is warm and dry. No clubbing or cyanosis is present. no rash, no growths, no abnormal pigmentation - Neurologic No focal deficit. Cranial nerves II through XII intact. - Musculoskeletal Moves all 4 extremities with equal strength bilateral. - Psychiatric oriented to time, oriented to person, oriented to place, speech is normal, memory intact Results - Labs 10/04/23 21:38 10/04/23 21:38 Abnormal Lab Results - Last 24 Hours (Table) 10/04/23 10/04/23 10/04/23 Range/Units 21:38 21:38 21:38 RBC 3.37 L (4.30-5.90) m/uL Hgb 10.2 L (13.0-17.5) gm/dL Hct 29.9 L (39.0-53.0) % RDW 16.6 H (11.5-15.5) % Lymphocytes # 0.4 L (1.0-4.8) k/uL Sodium 134 L (137-145) mmol/L BUN 30 H (9-20) mg/dL Glucose 118 H (74-99) mg/dL Total Protein 5.7 L (6.3-8.2) g/dL Urine Protein 2+ H (Negative) Urine Blood Large H (Negative) Ur Leukocyte Esterase Moderate H (Negative) Urine RBC >182 H (0-5) /hpf Urine WBC 17 H (0-5) /hpf Urine Bacteria Occasional H (None) /hpf Hyaline Casts 3 H (0-2) /lpf Urine Mucus Occasional H (None) /hpf Diabetes panel 10/04/23 Range/Units 21:38 Sodium 134 L (137-145) mmol/L Potassium 4.0 (3.5-5.1) mmol/L Chloride 103 (98-107) mmol/L Carbon Dioxide 22 (22-30) mmol/L BUN 30 H (9-20) mg/dL Creatinine 1.22 (0.66-1.25) mg/dL Glucose 118 H (74-99) mg/dL Calcium 9.0 (8.4-10.2) mg/dL AST 33 (17-59) U/L ALT 33 (4-49) U/L Alkaline Phosphatase 66 (38-126) U/L Total Protein 5.7 L (6.3-8.2) g/dL Albumin 3.5 (3.5-5.0) g/dL Calcium panel 10/04/23 Range/Units 21:38 Calcium 9.0 (8.4-10.2) mg/dL Albumin 3.5 (3.5-5.0) g/dL Pituitary panel 10/04/23 Range/Units 21:38 Sodium 134 L (137-145) mmol/L Potassium 4.0 (3.5-5.1) mmol/L Chloride 103 (98-107) mmol/L Carbon Dioxide 22 (22-30) mmol/L BUN 30 H (9-20) mg/dL Creatinine 1.22 (0.66-1.25) mg/dL Glucose 118 H (74-99) mg/dL Calcium 9.0 (8.4-10.2) mg/dL Adrenal panel 10/04/23 Range/Units 21:38 Sodium 134 L (137-145) mmol/L Potassium 4.0 (3.5-5.1) mmol/L Chloride 103 (98-107) mmol/L Carbon Dioxide 22 (22-30) mmol/L BUN 30 H (9-20) mg/dL Creatinine 1.22 (0.66-1.25) mg/dL Glucose 118 H (74-99) mg/dL Calcium 9.0 (8.4-10.2) mg/dL Total Bilirubin 1.0 (0.2-1.3) mg/dL AST 33 (17-59) U/L ALT 33 (4-49) U/L Alkaline Phosphatase 66 (38-126) U/L Total Protein 5.7 L (6.3-8.2) g/dL Albumin 3.5 (3.5-5.0) g/dL - Imaging Chest x-ray: report reviewed, image reviewed CT scan - abdomen: report reviewed CT scan - pelvis: report reviewed Assessment and Plan Assessment: Abdominal ileus Squamous cell carcinoma right lower lobe, status post right thoracotomy with right lower lobectomy and mediastinal lymph node dissection History of chronic cough with hemoptysis since lung biopsy Coronary artery disease with PCI maintained on Plavix Chronic persistent atrial fibrillation with failed cardioversion attempt Hypertension Hyperlipidemia Prostate cancer Previous tobacco dependence Obstructive sleep apnea on home CPAP use NORA, medication induced vs hypotension Urine retention, likely due to urethral stricture as patient had been having symptoms preoperatively, status post urethral dilation and placement of elias catheter by urology Plan: The patient was seen and examined at his bedside on the fourth floor medical surgical unit in conjunction with Dr. Curtis Stanley from cardiothoracic surgery. His chart and diagnostics were reviewed. Dr. Stanley discussed the findings on the CT scan of the abdomen with the patient. Dr. Stanley also discussed findings with Dr. Viveros from primary care. The patient denies any further complaints of nausea or hiccups. NG tube management recommendations per general surgery. Elias catheter recommendations per urology. The patient will be given a fleets enema. The patient's thoracotomy incision is clean and dry without redness or drainage. Encourage use of incentive spirometry 10 times every hour while awake. Increase activity as tolerated. Physical and Occupational Therapy consulted. Medical management other comorbidities per primary care service. More recommendations to follow based on patient's clinical course. Thank you Dr. Viveros for this consult and we will look forward to working with you in the care of this patient. I have personally seen and examined the patient, performed the documentation and the assessment and plan as written. Number of minutes spent on the visit: 30. NOLVIA Carranza Time with Patient: Greater than 30
[2023-10-05] MEDS ORDERED: cefTRIAXone 1,000 MG VIAL (IM USE) IM SCH (18:15)
[2023-10-05] MEDS: PANTOPRAZOLE 40 MG TABLET PO SCH (20:53)
--- NOTE | 2023-10-06 01:42 | HP ---
HISTORY AND PHYSICAL HISTORY OF PRESENT ILLNESS: He came in to the hospital with progressive nausea and vomiting, abdominal pain. Dr. Stanley, thought he had severe ileus versus small-bowel obstruction. Wait for surgical recommendations. He previously got to the hospital for having a lobectomy for lung cancer. Urology did a Garcia catheter, urinary retention. HOME MEDICINES: 1. Plavix 75 mg daily. 2. p.r.n. 3. Nitro sublingual p.r.n. 4. Omeprazole 40 daily. 5. 10 mg subcu weekly. 6. Allopurinol 300 daily. 7. Trelegy 200 one puff daily. ALLERGIES: Cortisone, surgical tape. REVIEW OF SYSTEMS: A 14-point review of systems otherwise negative. PAST MEDICAL HISTORY: Prostate cancer, atrial fibrillation, coronary artery disease, eye disorder, hypertension, pneumonia, and sleep apnea. PAST SURGICAL HISTORY: Recent lobectomy, cholecystectomy, heart catheterization, status post prostate surgery. FAMILY HISTORY: History of atrial fibrillation coronary artery disease, mother with coronary artery disease. PHYSICAL EXAMINATION: VITAL SIGNS: Temperature 97.4, pulse 90 to 98, respiratory rate 18 to 24, blood pressure 120s to 140s over 60s 98. CARDIOVASCULAR: S1, S2. LUNGS: Transmitted upper sounds. GI: Soft. HEMATOLOGY: Negative for Homans. PSYCH: Fair mood and affect. NEUROLOGIC: Alert and oriented x3. 7.2, BUN is 30, creatinine 1.62, CO2 118, red cells greater than 182. UA is negative. CAT scan of the abdomen is reviewed. History of small bowel obstruction. NG tube is in place. Wait for surgical recommendations. Small bowel obstruction postoperative for prognosis guarded. Please see further orders. MMODL / IJN: [id number] /
--- NOTE | 2023-10-06 09:24 | P.PN ---
Subjective Progress Note Date: 10/06/23 Principal diagnosis: Abdominal ileus. History of squamous cell carcinoma right lower lobe, status post right thoracotomy with right lower lobectomy and mediastinal lymph node dissection, chronic cough with hemoptysis since lung biopsy, coronary artery disease with PCI maintained on Plavix, chronic persistent atrial fibrillation with failed cardioversion attempt, hypertension, hyperlipidemia, prostate cancer, previous tobacco dependence, obstructive sleep apnea on home CPAP use, urine retention due to urethral stricture status post urethral dilation and placement of elias catheter by urology The patient was seen and examined this morning with Dr. Marquez sitting up in recliner in no acute distress. Denies any pain or shortness of breath. Patient has had 3 bowel movements, passing flatus, denies any nausea, denies abdominal distention and states his abdomen is the way it is normally. His NG tube was taken out last night, he was started on clear liquid diet which patient states he has tolerated without difficulty. He has been ambulatory without difficulty. His only complaint at this time is that he dislikes the Elias catheter and would like it removed. We did explain that that would be urology's decision as the patient did have a urethral stricture which needed to be dilated. Urinalysis revealed moderate leukocyte esterase with large amount of blood and 1 7 WBCs, however urine culture was negative for any growth, WBC remains normal, patient remains afebrile, was started on Rocephin yesterday. No other new concerns. Objective - Vital Signs Vital signs: Vital Signs Temp 97.3 F L 10/06/23 07:03 Pulse 87 10/06/23 07:03 Resp 17 10/06/23 07:03 BP 126/69 10/06/23 07:03 Pulse Ox 99 10/06/23 07:03 FiO2 Intake & Output 10/05/23 10/06/23 10/06/23 18:59 06:59 18:59 Output Total 1000 475 Balance -1000 -475 Output: Gastric Drainage 500 Urine 500 475 Other: Voiding Method Indwelling Catheter Indwelling Catheter # Voids 2 # Bowel Movements 1 - Exam CONSTITUTIONAL: Appears comfortable, cooperative, no acute distress RESPIRATORY: Lungs sounds diminished bilaterally. Respirations even, nonlabored. Currently on room air with oxygen saturation 97%. Able to achieve 1500 mL on incentive spirometry. Strong cough. CARDIOVASCULAR: S1, S2 present. Irregular rate and rhythm. Palpable peripheral pulses bilaterally. No edema present. No calf pain or tenderness noted GASTROINTESTINAL: Abdomen soft, nontender, nondistended. Active bowel sounds present 4 quadrants. Tolerating clear liquids. Positive bowel movement x3. GENITOURINARY: Elias catheter present draining clear, yellow urine INTEGUMENTARY: Skin is warm and dry with evidence of good perfusion. Thoracic incision well approximated and covered with dry intact dressing. NEUROLOGIC: Cranial nerves II through XII intact MUSKULOSKELETAL: Able to move all extremities, strength equal bilaterally, gait normal PSYCHIATRIC: Alert and oriented to person place and time, appropriate affect, intact judgment and insight - Allied health notes Allied health notes reviewed: nursing - Labs CBC & Chem 7: 10/04/23 21:38 10/04/23 21:38 Labs: Microbiology - Last 24 Hours (Table) 10/04/23 21:38 Urine Culture - Final Urine,Voided - Imaging and Cardiology Chest x-ray: report reviewed, image reviewed Assessment and Plan Assessment: Abdominal ileus, resolving Squamous cell carcinoma right lower lobe, status post right thoracotomy with right lower lobectomy and mediastinal lymph node dissection Chronic cough with hemoptysis since lung biopsy Coronary artery disease with PCI maintained on Plavix Chronic persistent atrial fibrillation with failed cardioversion attempt Hypertension Hyperlipidemia Prostate cancer Previous tobacco dependence Obstructive sleep apnea on home CPAP use Urine retention, due to urethral stricture status post urethral dilation and placement of elias catheter by urology Plan: Advance diet as tolerated Continue current medication regimen Elias catheter management per urology recommendations, patient does have follow- up appointment with urology tomorrow morning in the office for trial of void Patient may remove dressings and shower daily Patient is cleared for discharge to home from our standpoint. Appointment for Dr. Stanley was placed on discharge plan
[2023-10-06 11:04] LABS: HCT 27.9 % (39.6-50.0); HGB 8.9 g/dL (13.0-17.0); MCHC 31.9 g/dL (32.0-37.0); MCV 90.9 FL (80.0-97.0); Mean Platelet Volume 9.5 FL (9.5-12.2); NRBC Per 100 WBC 0.02 X 10*3/uL (0.00-0.01); Platelet Count 334 X 10*3/uL (140-440); RBC 3.07 X 10*6/uL (4.40-5.60); RDW 17.2 % (11.5-14.5); WBC 9.23 X 10*3/uL (4.50-10.00)
[2023-10-06 11:19] LABS: ALT 32 U/L (10-49); AST 23 U/L (14-35); Albumin 3.3 g/dL (3.8-4.9); Albumin/Globulin Ratio 1.94 Ratio (1.60-3.17); Alkaline Phosphatase 51 U/L (41-126); Blood Urea Nitrogen 18.5 mg/dL (9.0-27.0); Carbon Dioxide 23.4 mmol/L (21.6-31.8); Chloride 103 mmol/L (96-109); Globulin 1.7 g/dL (1.6-3.3); Glucose 96 mg/dL (70-110); Potassium 3.8 mmol/L (3.5-5.5); Sodium 137 mmol/L (135-145); Total Bilirubin 0.4 mg/dL (0.3-1.2)
[2023-10-06 11:45] LABS: Acanthocytes 2+; Basophils # (M) 0 X 10*3/uL (0.00-0.10); Eosinophils # (M) 0.18 X 10*3/uL (0.04-0.35); Lymphocytes # (M) 0.09 X 10*3/uL (0.90-5.00); Monocytes # (M) 0.18 X 10*3/uL (0.20-1.00); Myelocytes % 3 % (0-0); Neutrophils % (M) 91 %; Nucleated Red Blood Cells 1 /100 WBCS; Promyelocytes # (M) 0.09 k/uL (0); Promyelocytes % 1 %
--- NOTE | 2023-10-06 12:44 | P.GSCN ---
History of Present Illness Consult date: 10/06/23 History of present illness: When in the hospital with ileus status post thoracotomy. 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 had to dilate the stricture with filiforms and followers. He has had the catheter in over one week. We've been asked to see the patient to clarify the status of the stricture. He had no problems urinating prior to the last hospital admission. Catheter obviously is irritating to him. The urine is clear. Review of Systems All systems: negative - Constitutional Denies fever, Denies weight loss - EENT Eyes: denies blurred vision Ears, nose, mouth and throat: Denies dysphagia - Cardiovascular Denies chest pain, Denies shortness of breath - Respiratory Denies cough, Denies 7 - Gastrointestinal Reports as per HPI - Genitourinary Denies dysuria, Denies hematuria - Integumentary Denies rash, Denies unusual bruising - Neurological Denies headaches, Denies syncope - Hematologic/Lymphatic Denies easy bleeding, Denies easy bruising Past Medical History Past Medical History: Atrial Fibrillation, Coronary Artery Disease (CAD), Cancer, Eye Disorder, GI Bleed, Hyperlipidemia, Hypertension, Pneumonia, Skin Disorder, Sleep Apnea/CPAP/BIPAP, Vascular Disorder Additional Past Medical History / Comment(s): dx of lung CA Aug 2023, pneumonia Sep 2023, recent dx hemoptysis-post bronchoscopy- Sep 2023, pt states he is still coughing up blood but "It's a lot less.", back pain-increased pain with walking,Vertigo, hiatal hernia, gout, eczema, bleeds easily, uses cpap, history of prostate cancer, cataract lt eye, "I have circulation issues with my legs." "My broom worker said we were going to deal with my lungs first before worrying about my legs.", pt reports swelling to bilat legs due to "I injured them falling off a ladder and my legs got stuck in ladder." History of Any Multi-Drug Resistant Organisms: None Reported Past Surgical History: Cholecystectomy, Heart Catheterization With Stent, Orthopedic Surgery, Prostate Surgery Additional Past Surgical History / Comment(s): Recent Bronchoscopy Aug 2023, Ex ploratory Abdominal Surgery; ORIF titanium/screws in LT Ankle. REPAIR BICEP TENDON LT ARM. RT CATARACT. STENTS X2. cyst removed from under chin, prostate surgery with 44 radiation txs, Watchman procedure, R lung lower lobectomy 09/28 Past Anesthesia/Blood Transfusion Reactions: Previous Problems w/ Anesthesia Additional Past Anesthesia/Blood Transfusion Reaction / Comm: DEVELOPED AFIB AFTER CATARACT SURG 2013. No hx of blood transfusions. Date of Last Stent Placement:: 2013 Past Psychological History: No Psychological Hx Reported Smoking Status: Former smoker Past Alcohol Use History: None Reported Additional Past Alcohol Use History / Comment(s): SMOKED 20 YRS, 1 PPD, QUIT 1979 Past Drug Use History: None Reported - Past Family History Mother Family Medical History: Coronary Artery Disease (CAD), Myocardial Infarction ([place]) Additional Family Medical History / Comment(s): from myocardial infarction at 69 years old Father Family Medical History: Coronary Artery Disease (CAD), Myocardial Infarction ([place]) Additional Family Medical History / Comment(s): from myocardial infarction at 69 years old Medications and Allergies Home Medications Medication Instructions Recorded Confirmed Type Clopidogrel Bisulfate [Plavix] 75 mg PO DAILY 09/03/17 10/05/23 History Nitroglycerin Sl Tabs [Nitrostat] 0.4 mg SUBLINGUAL Q5M PRN 09/03/17 10/05/23 History Ranolazine [Ranexa] 500 mg PO BID 09/03/17 10/05/23 History Albuterol Nebulized [Ventolin 1.25 mg INHALATION RT-Q6H PRN 08/30/23 10/05/23 History Nebulized (Accuneb)] Colchicine 0.6 mg PO DAILY PRN 08/30/23 10/05/23 History Mv-Min/Folic/K1/Lycopen/Lutein 1 tab PO DAILY 08/30/23 10/05/23 History [Centrum Silver Men Tablet] Omeprazole 40 mg PO HS 08/30/23 10/05/23 History Tirzepatide [Mounjaro] 10 mg SQ TU 08/30/23 10/05/23 History allopurinoL [Zyloprim] 300 mg PO DAILY 08/30/23 10/05/23 History Fluticasone/Umeclidin/Vilanter 1 puff INHALATION RT-DAILY 09/18/23 10/05/23 History [Trelegy Ellipta 100-62.5-25] Acetaminophen Tab [Tylenol] 650 mg PO Q4HR PRN tab 10/04/23 10/05/23 Rx Benzonatate [Tessalon Perles] 200 mg PO TID #120 cap 10/04/23 10/05/23 Rx Isosorbide Mononitrate ER [Imdur] 30 mg PO DAILY #30 tab 10/04/23 10/05/23 Rx guaiFENesin [Mucinex] 600 mg PO Q12HR #60 tab 10/04/23 10/05/23 Rx lisinopriL [Zestril] 10 mg PO DAILY tab 10/04/23 10/05/23 Rx Allergies Allergy/AdvReac Type Severity Reaction Status Date / Time cortisone [Cortisone] Allergy Swelling Verified 10/05/23 06:35 and itching surgical tape Allergy "Broke Uncoded 09/29/23 06:13 out" "Got infection" Surgical - Exam Vital Signs Temp Pulse Resp BP Pulse Ox 97.4 F L 92 24 148/69 98 10/04/23 21:13 10/04/23 21:13 10/04/23 21:13 10/04/23 21:13 10/04/23 21:13 - General well developed, well nourished, no distress - Eyes normal ocular movement, no icteric - ENT no hearing loss, no congestion - Neck no masses, trachea midline - Respiratory normal respiratory effort, clear to auscultation - Abdomen Gaseous distention of the abdomen consistent with ileus Abdomen: soft, non tender, no guarding, no rigid, no rebound, distended - Genitourinary Indwelling catheter - Integumentary no rash, no abnormal pigmentation - Neurologic no disoriented, no combative - Psychiatric oriented to time, oriented to person, oriented to place, speech is normal, memory intact Results - Labs 10/06/23 06:01 10/06/23 06:01 Abnormal Lab Results - Last 24 Hours (Table) 10/06/23 10/06/23 Range/Units 06:01 06:01 RBC 3.07 L (4.40-5.60) X 10*6/uL Hgb 8.9 L (13.0-17.0) g/dL Hct 27.9 L (39.6-50.0) % MCHC 31.9 L (32.0-37.0) g/dL RDW 17.2 H (11.5-14.5) % Lymphocytes # (Manual) 0.09 L (0.90-5.00) X 10*3/uL Monocytes # (Manual) 0.18 L (0.20-1.00) X 10*3/uL NRBC/100 WBC Diff 0.02 H (0.00-0.01) X 10*3/uL Acanthocytes (Spur) 2+ A Total Protein 5.0 L (6.2-8.2) g/dL Albumin 3.3 L (3.8-4.9) g/dL Microbiology - Last 24 Hours (Table) 10/04/23 21:38 Urine Culture - Final Urine,Voided Diabetes panel 10/06/23 Range/Units 06:01 Sodium 137 (135-145) mmol/L Potassium 3.8 (3.5-5.5) mmol/L Chloride 103 (96-109) mmol/L Carbon Dioxide 23.4 (21.6-31.8) mmol/L BUN 18.5 (9.0-27.0) mg/dL Creatinine 1.0 (0.6-1.5) mg/dL Glucose 96 (70-110) mg/dL Calcium 9.0 (8.7-10.3) mg/dL AST 23 (14-35) U/L ALT 32 (10-49) U/L Alkaline Phosphatase 51 (41-126) U/L Total Protein 5.0 L (6.2-8.2) g/dL Albumin 3.3 L (3.8-4.9) g/dL Calcium panel 10/06/23 Range/Units 06:01 Calcium 9.0 (8.7-10.3) mg/dL Albumin 3.3 L (3.8-4.9) g/dL Pituitary panel 10/06/23 Range/Units 06:01 Sodium 137 (135-145) mmol/L Potassium 3.8 (3.5-5.5) mmol/L Chloride 103 (96-109) mmol/L Carbon Dioxide 23.4 (21.6-31.8) mmol/L BUN 18.5 (9.0-27.0) mg/dL Creatinine 1.0 (0.6-1.5) mg/dL Glucose 96 (70-110) mg/dL Calcium 9.0 (8.7-10.3) mg/dL Adrenal panel 10/06/23 Range/Units 06:01 Sodium 137 (135-145) mmol/L Potassium 3.8 (3.5-5.5) mmol/L Chloride 103 (96-109) mmol/L Carbon Dioxide 23.4 (21.6-31.8) mmol/L BUN 18.5 (9.0-27.0) mg/dL Creatinine 1.0 (0.6-1.5) mg/dL Glucose 96 (70-110) mg/dL Calcium 9.0 (8.7-10.3) mg/dL Total Bilirubin 0.4 (0.3-1.2) mg/dL AST 23 (14-35) U/L ALT 32 (10-49) U/L Alkaline Phosphatase 51 (41-126) U/L Total Protein 5.0 L (6.2-8.2) g/dL Albumin 3.3 L (3.8-4.9) g/dL Assessment and Plan Assessment: Impression: Urethral stricture disease. History of prostate cancer. Status post post-urethral dilatation. Ileus post thoracotomy Recommendations: The catheter can be removed at any time from a urologic standpoint. He should follow in the office to see in 2 weeks.
--- NOTE | 2023-10-06 13:46 | P.PN ---
Subjective Progress Note Date: 10/06/23 CHIEF COMPLAINT: Ileus HISTORY OF PRESENT ILLNESS: Patient had 2 bowel movements yesterday after the enema. Medicine service did remove the NG tube. Patient reports that he has no abdominal pain. He is having flatus. The only pain he has is on the right side where he had his lung surgery. He denies any nausea or vomiting. He tolerated the clear liquids. He reports that his abdomen is very close to his normal size. He is afebrile. He has been up and ambulate. WBC 9.23 Hgb 8.9 platelets 334 sodium 137 potassium 3.8 creatinine 1.0 PHYSICAL EXAM: VITAL SIGNS: Reviewed. GENERAL: Well-developed in no acute distress. ABDOMEN: Soft. Mildly distended nontender. NEUROLOGIC: Alert and oriented. Cranial nerves II through XII grossly intact. ASSESSMENT: 1. Abdominal ileus likely due to recent surgery 2. Lung cancer with recent right thoracotomy with right lower lobectomy and mediastinal lymph node dissection PLAN: -Advance diet to full liquids -Encourage patient ambulate -Continue supportive care Physician Valve Steamer note has been reviewed by physician. Signing provider agrees with the documented findings, assessment, and plan of care. Objective - Vital Signs Vital signs: Vital Signs Temp 97.3 F L 10/06/23 07:03 Pulse 84 10/06/23 12:20 Resp 17 10/06/23 07:03 BP 126/69 10/06/23 07:03 Pulse Ox 99 10/06/23 07:03 FiO2 Intake & Output 10/05/23 10/06/23 10/06/23 18:59 06:59 18:59 Output Total 1000 475 Balance -1000 -475 Output: Gastric Drainage 500 Urine 500 475 Other: Voiding Method Indwelling Catheter Indwelling Catheter # Voids 2 # Bowel Movements 1 - Labs CBC & Chem 7: 10/06/23 06:01 10/06/23 06:01 Labs: Abnormal Lab Results - Last 24 Hours (Table) 10/06/23 10/06/23 Range/Units 06:01 06:01 RBC 3.07 L (4.40-5.60) X 10*6/uL Hgb 8.9 L (13.0-17.0) g/dL Hct 27.9 L (39.6-50.0) % MCHC 31.9 L (32.0-37.0) g/dL RDW 17.2 H (11.5-14.5) % Lymphocytes # (Manual) 0.09 L (0.90-5.00) X 10*3/uL Monocytes # (Manual) 0.18 L (0.20-1.00) X 10*3/uL NRBC/100 WBC Diff 0.02 H (0.00-0.01) X 10*3/uL Acanthocytes (Spur) 2+ A Total Protein 5.0 L (6.2-8.2) g/dL Albumin 3.3 L (3.8-4.9) g/dL Microbiology - Last 24 Hours (Table) 10/04/23 21:38 Urine Culture - Final Urine,Voided
[2023-10-06] MEDS: LACTULOSE 20 GM/30 ML CUP PO PRN (20:41)
--- NOTE | 2023-10-07 01:25 | PN ---
PROGRESS NOTE SUBJECTIVE: Status post ileus, small-bowel obstruction, started on clear liquid diet. He has urinary incontinence and he has constipation. OBJECTIVE: VITAL SIGNS: Temperature 97.5, blood pressure 120/66, O2 of 99% on room air, pulse of 86. CARDIOVASCULAR: S1, S2. LUNGS: Clear. GI: Soft, distended, obesity. NEUROLOGIC: Alert and oriented x3. PLAN: Cleared for possible discharge home. Dr. Swanson saw the patient also for urinary incontinence. Urine is clear. The patient was maintained pneumonia and discharged home as he appears to be stable. MMODL / IJN: [id number] /
--- NOTE | 2023-10-07 14:41 | XR ---
EXAMINATION TYPE: XR abdomen 2V DATE OF EXAM: 10/07/2023 2:32 PM CLINICAL INDICATION:Male, 83 years old with history of abdominal distention; COMPARISON: Simultaneous emphysema as seen on prior CT TECHNIQUE: Two views of the abdomen were obtained. FINDINGS: Subcutaneous lucencies along the soft tissues on the right are noted. There is gaseous dila tion of bowel loops throughout the abdomen. The bowel gas pattern is nonspecific without dilated loop s of small or large bowel. There is no evidence for organomegaly or pneumoperitoneum. The osseous st ructures are intact. No abnormal calcifications are present. Fecal material and gas are demonstrated throughout the colon and rectum. IMPRESSION: 1. Gaseous distention of bowel loops throughout the abdomen correlate for ileus versus partial obstr uction. 2. Subcutaneous emphysema abdominal wall similar to prior.
--- NOTE | 2023-10-07 15:10 | P.PN ---
Subjective Progress Note Date: 10/07/23 CHIEF COMPLAINT: Ileus HISTORY OF PRESENT ILLNESS: Patient continues to have abdominal distention. But he reports closer to his normal size belly. He is having flatus. He is belching a lot. He ate a small amount of full liquids this morning. Denies any nausea or vomiting. Denies abdominal pain. His pain is mostly on the right side at his incision sites from his lung surgery. Patient reports ambulating. Afebrile. PHYSICAL EXAM: VITAL SIGNS: Reviewed. GENERAL: Well-developed in no acute distress. Chest: right sided incision sites clean dry and intact with some tenderness at the incision sites and subcu emphysema noted ABDOMEN: Soft. distended nontender. tympanic NEUROLOGIC: Alert and oriented. Cranial nerves II through XII grossly intact. ASSESSMENT: 1. Abdominal ileus likely due to recent surgery 2. Lung cancer with recent right thoracotomy with right lower lobectomy and mediastinal lymph node dissection PLAN: -Repeat abdominal x-ray for follow-up on abdominal distention and possible ileus -Continue full liquids -Encourage patient ambulate -Continue supportive care Physician Accounts Payable Analyst note has been reviewed by physician. Signing provider agrees with the documented findings, assessment, and plan of care. I have personally seen and examined the patient, reviewed the CONVEYOR OPERATOR /PAs history, exam and MDM and agree with the assessment and plan as written. Based on total visit time, I have performed more than 50% of the visit. As above: Patient states he is doing fine today. Family present at the bedside. They believe he is still somewhat distended although better from admission. Patient states he has not distended. He is passing flatus. Denies pain. Today's x-ray still shows some dilated loops of bowel. I suspect air-filled right colon and proximal transverse colon. Patient would like more to eat. Currently on full liquids. Will advance to soft diet. Monitor for recurrent nausea or vomiting. Objective - Vital Signs Vital signs: Vital Signs Temp 97.8 F 10/07/23 07:23 Pulse 86 10/07/23 12:04 Resp 19 10/07/23 07:23 BP 118/65 10/07/23 07:23 Pulse Ox 98 10/07/23 07:23 FiO2 Intake & Output 10/06/23 10/07/23 10/07/23 18:59 06:59 18:59 Intake Total 650 Output Total 300 300 259 Balance 350 -300 -259 Intake: Intake, IV Titration 650 Amount Sodium Chloride 0.9% 1, 600 000 ml @ 75 mls/hr IV . [id number] [facility] Rx#:[id number] cefTRIAXone 1 gm In 50 Sodium Chloride 0.9% 50 ml @ 100 mls/hr IVPB Q24H [facility] Rx#:[id number] Output: Urine 300 300 Uretheral (Garcia) 300 Post Void Residual 259 Other: Voiding Method Indwelling Catheter Indwelling Catheter Toilet Urinal # Voids 1 - Labs CBC & Chem 7: 10/06/23 06:01 10/06/23 06:01 Labs: Abnormal Lab Results - Last 24 Hours (Table) 10/06/23 Range/Units 06:01 Neutrophils # (Manual) 8.40 H (1.80-7.70) X 10*3/uL Promyelocytes # (Man) 0.09 H (0) k/uL
[2023-10-07] MEDS: METOCLOPRAMIDE 5 MG/ML 2 ML VIAL IVP SCH (21:08)
--- NOTE | 2023-10-07 21:34 | PN ---
PROGRESS NOTE An 83-year-old white male. Remains on Protonix, Ranexa, breathing treatments, Plavix, Colcrys, Mucinex, Imdur, Zestril. I am going to keep him another day as hemoglobin dropped to 8.9 from 10.2 and urinary retention. We are going to work on that for another 24 hours prior to discharge. We will check some labs in the morning. Advance his diet. PT, OT and we will see if we can get his Garcia catheter out without urinary retention and reinserting it. Otherwise, he will have to go home with a Garcia catheter for 2 weeks. Surgically, he is doing better. From a surgical standpoint, his breathing is better. Please see further orders. MMODL / IJN: [id number] /
[2023-10-07] MEDS: FORMOTEROL FUMARATE 20 MCG/2 ML NEBU INHALATION SCH (21:53)
[2023-10-08 09:39] LABS: Basophils # (A) 0.06 X 10*3/uL (0.00-0.10); Basophils % (A) 0.6 %; Eosinophils # (A) 0.09 X 10*3/uL (0.04-0.35); Eosinophils % (A) 0.9 %; HCT 31.5 % (39.6-50.0); HGB 9.7 g/dL (13.0-17.0); Lymphocytes # (A) 0.55 X 10*3/uL (0.90-5.00); Lymphocytes % (A) 5.4 %; MCH 28.4 pg (27.0-32.0); MCHC 30.8 g/dL (32.0-37.0); MCV 92.1 FL (80.0-97.0); Mean Platelet Volume 9.6 FL (9.5-12.2); Monocytes % (A) 6.9 %; NRBC Per 100 WBC 0 X 10*3/uL (0.00-0.01); Neutrophils # (A) 8.28 X 10*3/uL (1.80-7.70); Neutrophils % (A) 81.4 %; Platelet Count 428 X 10*3/uL (140-440); RBC 3.42 X 10*6/uL (4.40-5.60); RDW 17.3 % (11.5-14.5); WBC 10.17 X 10*3/uL (4.50-10.00)
[2023-10-08] MEDS: METOPROLOL TARTRATE 50 MG TAB PO SCH (12:21)
[2023-10-08 12:31] LABS: ALT 23 U/L (10-49); AST 20 U/L (14-35); Albumin 3.5 g/dL (3.8-4.9); Albumin/Globulin Ratio 1.75 Ratio (1.60-3.17); Alkaline Phosphatase 59 U/L (41-126); Calcium 9.1 mg/dL (8.7-10.3); Chloride 106 mmol/L (96-109); Glucose 101 mg/dL (70-110); Sodium 137 mmol/L (135-145); Total Bilirubin 0.3 mg/dL (0.3-1.2); Total Protein 5.5 g/dL (6.2-8.2)
[2023-10-08] MEDS: SODIUM CHLORIDE 0.65% NASAL SPRAY 44 ML BTL NASAL PRN (14:11)
--- NOTE | 2023-10-08 16:21 | P.PN ---
Subjective Progress Note Date: 10/08/23 NAEON. No N/V. No F/C. NO SOB or CP. Ambulatory and voiding. Admits to flatus, no BM. Tolerating diet. Objective - Vital Signs Vital signs: Vital Signs Temp 97.5 F L 10/08/23 13:59 Pulse 62 10/08/23 13:59 Resp 19 10/08/23 13:59 BP 125/63 10/08/23 13:59 Pulse Ox 98 10/08/23 13:59 FiO2 Intake & Output 10/07/23 10/08/23 10/08/23 18:59 06:59 18:59 Intake Total 1540 Output Total 259 377 Balance -259 1163 Intake: Intake, IV Titration 900 Amount Sodium Chloride 0.9% 1, 900 000 ml @ 75 mls/hr IV . [id number] [facility] Rx#:[id number] Oral 640 Output: Urine 375 Post Void Residual 259 Stool 2 Other: Voiding Method Toilet Urinal # Voids 1 # Bowel Movements 1 1 - Exam Gen: AxO, NAD Pulm: non-labored respirations Abd: soft, non-tender, non-distended. No guarding/rebound/rigidity Extrem: no edema seen - Labs CBC & Chem 7: 10/08/23 06:48 10/08/23 06:48 Labs: Abnormal Lab Results - Last 24 Hours (Table) 10/08/23 10/08/23 Range/Units 06:48 06:48 WBC 10.17 H (4.50-10.00) X 10*3/uL RBC 3.42 L (4.40-5.60) X 10*6/uL Hgb 9.7 L (13.0-17.0) g/dL Hct 31.5 L (39.6-50.0) % MCHC 30.8 L (32.0-37.0) g/dL RDW 17.3 H (11.5-14.5) % Immature Gran # 0.49 H (0.00-0.04) X 10*3/uL Neutrophils # 8.28 H (1.80-7.70) X 10*3/uL Lymphocytes # 0.55 L (0.90-5.00) X 10*3/uL Carbon Dioxide 19.0 L (21.6-31.8) mmol/L BUN/Creatinine Ratio 10.00 L (12.00-20.00) Ratio Total Protein 5.5 L (6.2-8.2) g/dL Albumin 3.5 L (3.8-4.9) g/dL Assessment and Plan Assessment: Patient is a 83 year old male with ileus now resolving Plan: -Diet as tolerated -Bowel regimen -PRN pain and nausea control -DVT/GI PPx -Care per primary Rashaad Carmichael MD General Surgery
--- NOTE | 2023-10-08 18:49 | PN ---
PROGRESS NOTE SUBJECTIVE: This is an 83-year-old, who got very short of breath while walking down the hallway. He had 2 to 3+ edema with IV Hep-Lock. Possibly gives a dose of Lasix today to help with his breathing. OBJECTIVE: VITAL SIGNS: He is 98% on room air, blood pressure 125/63, temperature 97.5, pulse 60, and respiratory rate 16 to 18. CARDIOVASCULAR: S1 and S2. LUNGS: Transmitted upper sounds. HEMATOLOGY: Negative Homans. Pathology pending. NEUROLOGIC: Alert and oriented x3. IMAGING: Abdominal x-ray shows subcutaneous emphysema, gaseous distension, bowel loops, for partial obstruction. PLAN: Diet has been advanced. We will wait and see how he does. PT/OT. Possibly home soon. MMODL / IJN: [id number] /
[2023-10-09 08:19] LABS: Anisocytosis Slight; HCT 30.5 % (39.0-53.0); HGB 9.7 gm/dL (13.0-17.5); Hypochromasia Slight; MCH 29.2 pg (25.0-35.0); MCHC 31.9 g/dL (31.0-37.0); MCV 91.8 fL (80.0-100.0); Mean Platelet Volume 7.8; Platelet Count 400 k/uL (150-450); Poikilocytosis Slight; RBC 3.33 m/uL (4.30-5.90); RDW 17.3 % (11.5-15.5); WBC 8.5 k/uL (3.8-10.6)
[2023-10-09 08:22] LABS: ALT 21 U/L (4-49); AST 21 U/L (17-59); African American GFR (CKD) 85 (>60 ml/min/1.73 sqM); Albumin 3.2 g/dL (3.5-5.0); Albumin/Globulin Ratio 1.3; Alkaline Phosphatase 63 U/L (38-126); Anion Gap 10 mmol/L; Blood Urea Nitrogen 10 mg/dL (9-20); Carbon Dioxide 18 mmol/L (22-30); Chloride 110 mmol/L (98-107); Globulin 2.5 g/dL; Glucose 89 mg/dL (74-99); Non-African American GFR(CKD) 73 (>60 ml/min/1.73 sqM); Sodium 138 mmol/L (137-145); Total Bilirubin 0.5 mg/dL (0.2-1.3); Total Protein 5.7 g/dL (6.3-8.2)
[2023-10-09] MEDS: ACETAMINOPHEN TAB 325 MG TAB PO PRN (08:25)
--- NOTE | 2023-10-09 08:53 | CA ---
Transthoracic Echo Report Name: Den Bull Age: 83 Gender: M : 1940 Exam Date: 10/08/2023 12:25 Exam Location: [facility] Ht (in): 76 Wt (lb): 253 Ordering Physician: Kojo Viveros MD Attending/Referring Phys: Pillowcase Sewer Divina Samayoa RDCS Procedure CPT: Indications: HTN Cardiac Hx: Technical Quality: Technically difficult study Contrast 1: Definity Total Dose (mL): 2 Contrast 2: Total Dose (mL): MEASUREMENTS (Male / Female) Normal Values 2D ECHO LV Diastolic Diameter PLAX 4.2 cm 4.2 - 5.9 / 3.9 - 5.3 cm LV Systolic Diameter PLAX 2.8 cm IVS Diastolic Thickness 1.7 cm 0.6 - 1.0 / 0.6 - 0.9 cm LVPW Diastolic Thickness 2.0 cm 0.6 - 1.0 / 0.6 - 0.9 cm LV Relative Wall Thickness 0.9 RV Internal Dim ED PLAX 3.5 cm LA Volume 120.7 cm??? 18 - 58 / 22 - 52 cm??? LA Volume Index 48.2 cm???/m??? 16 - 28 cm???/m??? M-MODE Aortic Root Diameter MM 4.0 cm LA Systolic Diameter MM 5.1 cm LA Ao Ratio MM 1.3 AV Cusp Separation MM 2.2 cm DOPPLER AV Peak Velocity 138.5 cm/s AV Peak Gradient 7.7 mmHg AV Mean Velocity 94.9 cm/s AV Mean Gradient 4.2 mmHg AV Velocity Time Integral 26.0 cm LVOT Peak Velocity 101.2 cm/s LVOT Peak Gradient 4.1 mmHg LVOT Velocity Time Integral 18.1 cm MV Area PHT 4.9 cm??? Mitral E Point Velocity 126.1 cm/s Mitral A Point Velocity 0.2 cm/s Mitral E to A Ratio 526.1 MV Deceleration Time 156.3 ms TR Peak Velocity 349.0 cm/s TR Peak Gradient 48.7 mmHg Right Ventricular Systolic Press 53.7 mmHg FINDINGS Left Ventricle Severely increased left ventricular wall thickness. Left ventricular cavity size normal. No obvious regional wall motion abnormalities. Left ventricular ejection fraction is estimated at 50-55 %. Right Ventricle Mild right ventricular dilatation. Moderate to severe pulmonary hypertension. Right ventricular systolic pressure estimated at 54 mm hg. Right Atrium Normal right atrial size. Left Atrium Severely increased left atrial volume. Moderately increased left atrial area. Mitral Valve Mitral annular calcification. Mitral valve thickened. Mild mitral regurgitation. Aortic Valve No aortic stenosis. No aortic regurgitation. Tricuspid Valve Moderate tricuspid regurgitation. Pulmonic Valve Structurally normal pulmonic valve. Pericardium No pericardial effusion. Aorta Aortic dilatation. CONCLUSIONS Severely increased left ventricular wall thickness Left ventricular ejection fraction 50-55% Mild right ventricular dilation RVSP 54 Moderately dilated left atrium Mild mitral regurgitation Moderate tricuspid regurgitation Previewed by: Dr. Shashank Chu DO (Electronically Signed) Final Date: 09 October 2023 08:52
[2023-10-09 09:15] LABS: Band Neutrophils % 2 %; Eosinophils # (M) 0.09 k/uL (0-0.7); Metamyelocytes # (M) 0.17 k/uL (0); Metamyelocytes % 2 %; Monocytes # (M) 0.51 k/uL (0-1.0); Myelocytes # (M) 0.43 k/uL (0); Myelocytes % 5 %; Neutrophils % (M) 78 %; Nucleated Red Blood Cells 0 /100 WBC (0-0); Total Cells Counted 200
[2023-10-09 09:16] LABS: Anisocytosis (M) Present; Hypochromasia (M) Present
--- NOTE | 2023-10-09 12:56 | P.PN ---
Subjective Progress Note Date: 10/09/23 Principal diagnosis: Ileus Patient doing well today. Says he was having some shortness of breath yesterday. Still having bowel function. Tolerating diet. Denies any bloating. Objective - Vital Signs Vital signs: Vital Signs Temp 97.6 F 10/09/23 07:18 Pulse 80 10/09/23 11:22 Resp 20 10/09/23 07:18 BP 152/76 10/09/23 07:18 Pulse Ox 98 10/09/23 07:18 FiO2 Intake & Output 10/08/23 10/09/23 10/09/23 18:59 06:59 18:59 Other: # Voids 4 3 - Exam Abdomen: Soft, nontender, nondistended - Labs CBC & Chem 7: 10/09/23 07:05 10/09/23 07:05 Labs: Abnormal Lab Results - Last 24 Hours (Table) 10/09/23 10/09/23 Range/Units 07:05 07:05 RBC 3.33 L (4.30-5.90) m/uL Hgb 9.7 L (13.0-17.5) gm/dL Hct 30.5 L (39.0-53.0) % RDW 17.3 H (11.5-15.5) % Lymphocytes # (Manual) 0.60 L (1.0-4.8) k/uL Metamyelocytes # (Man) 0.17 H (0) k/uL Myelocytes # (Manual) 0.43 H (0) k/uL Chloride 110 H (98-107) mmol/L Carbon Dioxide 18 L (22-30) mmol/L Total Protein 5.7 L (6.3-8.2) g/dL Albumin 3.2 L (3.5-5.0) g/dL Assessment and Plan (1) Postoperative ileus Narrative/Plan: Patient doing well from abdominal point of view. Tolerating diet. No nausea. Having bowel function. Continue diet. Will sign off. Please reconsult if any abdominal complaints develop. Current Visit: Yes Status: Acute Code(s): K91.89 - OTH POSTPROCEDURAL COMPLICATIONS AND DISORDERS OF DGSTV SYS; K56.7 - ILEUS, UNSPECIFIED SNOMED Code(s): 058937219
--- NOTE | 2023-10-09 23:51 | PN ---
PROGRESS NOTE SUBJECTIVE: An 83-year-old white male, who has been ambulating a little bit, wants to go home with Garcia catheter placement whether he needs or not. OBJECTIVE: VITAL SIGNS: Blood pressure is 150s over 70s, O2 98% on room air, temp 97.6, pulse 62. CARDIOVASCULAR: S1, S2. LUNGS: Clear. GI: Soft. HEMATOLOGIC: 2 to 3+ edema. Hemoglobin is 9.7. ASSESSMENT: Possible discharge home. Tolerating oral diet, bowel regimen, P.r.n. pain and nausea control. Deep venous thrombosis, gastrointestinal prophylaxis, resolving bowel obstruction, abdominal pain, chronic obstructive pulmonary disease, pulmonary hypertension. Need to do breathing treatments at home. Prognosis guarded. MMODL / IJN: [id number] /
[2023-10-10 09:19] VITALS: RESP 20
[2023-10-10 15:37] VITALS: BP 119/63; PULSE 62; TEMP 98.3
[2023-10-10] MEDS: FUROSEMIDE 40 MG TAB PO SCH (18:26)
[2023-10-10] MEDS: POTASSIUM CITRATE 5 MEQ TABLET.ER PO SCH (18:26)
--- NOTE | 2023-10-10 21:42 | PN ---
PROGRESS NOTE SUBJECTIVE: The patient was seen by surgeon, Dr. Nagel. He has some shortness of breath, bowel function. Denies any bloating. Fair amount of stool softener, postoperative ileus status post lung resection for cancer. GI will possibly discharge him home. Get him ambulating PT, OT. Yesterday he was short of breath, today he feels little bit better. Ileus is resolving. I will get him ambulating, possibly go home. Recent echocardiogram 10/08/2023 shows right ventricular dilation, [id number] pulmonary hypertension with right ventricular systolic pressure 54, severely increased left ventricular wall thickness, RSVP 54, mild tricuspid regurg. PROGNOSIS: Guarded. Continue current treatments. Discharged home. Prognosis is guarded. MMODL / IJN: [id number] /
--- NOTE | 2023-11-24 02:55 | DS ---
DISCHARGE SUMMARY MEDICATIONS: 1. Ranexa 500 b.i.d. 2. Nitroglycerin sublingual p.r.n. 3. Plavix 75 mg daily. 4. Mounjaro 10 mg weekly. 5. Omeprazole 40 mg daily. 6. Zyloprim 300 daily. 7. AccuNeb q.6h. 8. Colchicine 0.6 mg daily. 9. Centrum Silver men's vitamin daily. 10.Trelegy 100/62.5/25 one puff daily. 11.Mucinex 600 q.12. 12.Zestril 10 mg daily. 13.Imdur 30 mg daily. 14.Tessalon Perles 200 b.i.d. 15.DuoNeb q.i.d. 16.Lasix 40 mg daily. 17.Lopressor 50 b.i.d. 18.Saline nasal spray. 19.Lactulose 20 g q.8h p.r.n. CONDITION: Stable. PROGNOSIS: Guarded. Ambulate as tolerated. The patient came in with shortness of breath, abdominal pain and bloating. He had an ileus post lung resection for cancer. We watched him over. He had an NG tube in. It has resolved. Advanced his diet. He has pulmonary hypertension, moderate to severe. Right ventricular systolic pressure is 54, severe decreased left ventricular wall thickness, mild tricuspid regurg. Prognosis is guarded. The patient was stabilized. He will have to follow up closely as an outpatient. Continue on his breathing treatments. Prognosis guarded. MMODL / IJN: [id number] /
== END 2023-10-10 18:36 | disposition home or self-care (01) | DRG 394 ==
LOC: EC 21:11 → 4SSUR 10-05 00:25
PROVIDERS: ADMIT Family Medicine; ATTEND Family Medicine
PROC: 0D9670Z Drainage of Stomach with Drainage Device, Via Natural or Artificial Opening (ICD-10-PCS; principal; 2023-10-04)
DX: K91.89 Other postprocedural complications and disorders of digestive system (principal); C34.31 Malignant neoplasm of lower lobe, right bronchus or lung; K56.7 Ileus, unspecified; I48.19 Other persistent atrial fibrillation; I27.20 Pulmonary hypertension, unspecified; J44.9 Chronic obstructive pulmonary disease, unspecified; I10 Essential (primary) hypertension; I07.1 Rheumatic tricuspid insufficiency; E66.9 Obesity, unspecified; Z68.30 Body mass index [BMI] 30.0-30.9, adult; I25.10 Atherosclerotic heart disease of native coronary artery without angina pectoris; G47.33 Obstructive sleep apnea (adult) (pediatric); N35.819 Other urethral stricture, male, unspecified site; R33.8 Other retention of urine; R32 Unspecified urinary incontinence; E78.5 Hyperlipidemia, unspecified; K21.9 Gastro-esophageal reflux disease without esophagitis; K44.9 Diaphragmatic hernia without obstruction or gangrene; L30.9 Dermatitis, unspecified; M10.9 Gout, unspecified; M54.9 Dorsalgia, unspecified; Z87.891 Personal history of nicotine dependence; Z79.51 Long term (current) use of inhaled steroids; Z79.02 Long term (current) use of antithrombotics/antiplatelets; Z79.85 Long-term (current) use of injectable non-insulin antidiabetic drugs; Z79.899 Other long term (current) drug therapy; Z85.46 Personal history of malignant neoplasm of prostate; Z92.3 Personal history of irradiation; Z95.5 Presence of coronary angioplasty implant and graft; Z90.2 Acquired absence of lung [part of]; Z88.8 Allergy status to other drugs, medicaments and biological substances
CPT/HCPCS: 36415; 71045; 74018; 74019; 74178; 80053; 81001; 83605; 83690; 83735; 83880; 85025; 87086; 93306; 94640; 96374; 96375; 99285

== ENCOUNTER 2023-10-18 15:21 | Emergency (ER) | payer MEDICARE ==
[2023-10-18 15:44] VITALS: RESP 20
--- NOTE | 2023-10-18 15:48 | ED ---
SOB HPI - General Chief Complaint: Shortness of Breath Stated Complaint: SOB Time Seen by Provider: 10/18/23 15:35 Source: patient, RN notes reviewed, old records reviewed Mode of arrival: EMS Limitations: no limitations - History of Present Illness Initial Comments: This is an 83-year-old male presenting after recent lung surgery severe shortness of breath with cough and congestion, patient feels weak lung and significant recent inpatient hospitalizations. No fevers no chest pain complaining of worsening shortness of breath and some swelling. Recent travel history or sick contacts. Patient does have a long complicated medical history MD Complaint: shortness of breath, cough, anxiety -: days(s) Severity: moderate Severity scale (1-10): 7 Consistency: constant Improves With: nothing Worsens With: exertion Known History Of: COPD, congestive heart failure Context: recent URI, anxiety, recent illness Associated Symptoms: chest pain, cough, sputum production Treatments Prior to Arrival: none - Related Data Home Medications Medication Instructions Recorded Confirmed Clopidogrel Bisulfate [Plavix] 75 mg PO DAILY 09/03/17 10/21/23 Nitroglycerin Sl Tabs [Nitrostat] 0.4 mg SL Q5M PRN 09/03/17 10/21/23 Ranolazine [Ranexa] 500 mg PO BID 09/03/17 10/21/23 Colchicine 0.6 mg PO DAILY PRN 08/30/23 10/21/23 Mv-Min/Folic/K1/Lycopen/Lutein 1 tab PO DAILY 08/30/23 10/21/23 [Centrum Silver Men Tablet] Omeprazole 40 mg PO HS 08/30/23 10/21/23 Tirzepatide [Mounjaro] 10 mg SQ TU 08/30/23 10/21/23 allopurinoL [Zyloprim] 300 mg PO DAILY 08/30/23 10/21/23 Fluticasone/Umeclidin/Vilanter 1 puff INHALATION RT-DAILY 09/18/23 10/21/23 [Trelegy Ellipta 100-62.5-25] Previous Rx's Medication Instructions Recorded Acetaminophen Tab [Tylenol] 650 mg PO Q4HR PRN tab 10/04/23 Isosorbide Mononitrate ER [Imdur] 30 mg PO DAILY #30 tab 10/04/23 lisinopriL [Zestril] 10 mg PO DAILY tab 10/04/23 Lactulose [Cephulac] 20 gm PO Q8HR PRN 90 Days #90 ml 10/07/23 Furosemide [Lasix] 40 mg PO DAILY 90 Days #90 tab 10/10/23 Ipratropium-Albuterol Nebulize 3 ml INHALATION RT-QID 30 Days 10/10/23 [Duoneb 0.5 mg-3 mg/3 ml Soln] #120 each Metoprolol Tartrate [Lopressor] 50 mg PO BID 90 Days #180 tab 10/10/23 Sodium Chloride 0.65% Nasal [Deep 2 spray NASAL QID PRN ml 10/10/23 Sea (Saline)] Dapagliflozin Propanediol [Farxiga] 10 mg PO DAILY 90 Days #90 tab 10/24/23 Furosemide [Lasix] 40 mg PO BID@0900,1600 90 Days 10/24/23 #180 tab Spironolactone [Aldactone] 25 mg PO DAILY 90 Days #90 tab 10/24/23 Allergies Allergy/AdvReac Type Severity Reaction Status Date / Time cortisone [Cortisone] Allergy Swelling Verified 10/21/23 12:35 and itching surgical tape Allergy "Broke Uncoded 09/29/23 06:13 out" "Got infection" Review of Systems ROS Statement: Those systems with pertinent positive or pertinent negative responses have been documented in the HPI. ROS Other: All systems not noted in ROS Statement are negative. Past Medical History Past Medical History: Atrial Fibrillation, Coronary Artery Disease (CAD), Cancer, Eye Disorder, GI Bleed, Hyperlipidemia, Hypertension, Pneumonia, Skin Disorder, Sleep Apnea/CPAP/BIPAP, Vascular Disorder Additional Past Medical History / Comment(s): dx of lung CA Aug 2023, pneumonia Sep 2023, recent dx hemoptysis-post bronchoscopy- Sep 2023, pt states he is still coughing up blood but "It's a lot less.", back pain-increased pain with walking,Vertigo, hiatal hernia, gout, eczema, bleeds easily, uses cpap, history of prostate cancer, cataract lt eye, "I have circulation issues with my legs." "My leather belt loop cutter said we were going to deal with my lungs first before worrying about my legs.", pt reports swelling to bilat legs due to "I injured them falling off a ladder and my legs got stuck in ladder." History of Any Multi-Drug Resistant Organisms: None Reported Past Surgical History: Cholecystectomy, Heart Catheterization With Stent, Orthopedic Surgery, Prostate Surgery Additional Past Surgical History / Comment(s): Recent Bronchoscopy Aug 2023, Exploratory Abdominal Surgery; ORIF titanium/screws in LT Ankle. REPAIR BICEP TENDON LT ARM. RT CATARACT. STENTS X2. cyst removed from under chin, prostate surgery with 44 radiation txs, Watchman procedure, R lung lower lobectomy 09/28 Past Anesthesia/Blood Transfusion Reactions: Previous Problems w/ Anesthesia Additional Past Anesthesia/Blood Transfusion Reaction / Comment(s): DEVELOPED AFIB AFTER CATARACT SURG 2013. No hx of blood transfusions. Date of Last Stent Placement:: 2013 Past Psychological History: No Psychological Hx Reported Smoking Status: Former smoker Past Alcohol Use History: None Reported Past Drug Use History: None Reported - Past Family History Mother Family Medical History: Coronary Artery Disease (CAD), Myocardial Infarction (IA) Additional Family Medical History / Comment(s): from myocardial infarction at 69 years old Father Family Medical History: Coronary Artery Disease (CAD), Myocardial Infarction (IA) Additional Family Medical History / Comment(s): from myocardial infarction at 69 years old General Exam Limitations: no limitations General appearance: alert, in no apparent distress, anxious Head exam: Present: atraumatic, normocephalic, normal inspection Eye exam: Present: normal appearance, PERRL, EOMI. Absent: scleral icterus, conjunctival injection, periorbital swelling ENT exam: Present: normal exam, mucous membranes moist Neck exam: Present: normal inspection. Absent: tenderness, meningismus, lymphadenopathy Respiratory exam: Present: wheezes, accessory muscle use, decreased breath sounds, prolonged expiratory. Absent: respiratory distress, rales, rhonchi, stridor Cardiovascular Exam: Present: regular rate, normal rhythm, normal heart sounds. Absent: systolic murmur, diastolic murmur, rubs, gallop, clicks GI/Abdominal exam: Present: soft, normal bowel sounds. Absent: distended, t enderness, guarding, rebound, rigid Extremities exam: Present: normal inspection, full ROM, normal capillary refill. Absent: tenderness, pedal edema, joint swelling, calf tenderness Back exam: Present: normal inspection Neurological exam: Present: alert, oriented X3, CN II-XII intact Psychiatric exam: Present: normal affect, normal mood Skin exam: Present: warm, dry, intact, normal color. Absent: rash Course Vital Signs 10/18/23 10/18/23 10/18/23 15:30 16:00 16:22 Temperature 97.6 F Pulse Rate 89 70 75 Respiratory 20 20 Rate Blood Pressure 151/82 133/71 O2 Sat by Pulse 99 100 Oximetry 10/18/23 10/18/23 10/18/23 16:30 17:00 18:00 Temperature Pulse Rate 77 79 81 Respiratory 20 20 Rate Blood Pressure 141/72 146/74 O2 Sat by Pulse 100 100 Oximetry 10/18/23 19:56 Temperature 97.9 F Pulse Rate 88 Respiratory 20 Rate Blood Pressure 149/64 O2 Sat by Pulse 99 Oximetry - Reevaluation(s) Reevaluation #1: Records reviewed Reevaluation #2: Patient symptoms unchanged Reevaluation #3: Patient informed of results and questions answered Reevaluation #4: Was pt. sent in by a medical professional or institution (, PA, [facility], urgent care, hospital, or usp...) When possible be specific @ -no Did you speak to anyone other than the patient for history (EMS, parent, family, police, friend...)? What history was obtained from this source @ -no Did you review nursing and triage notes (agree or disagree)? Why? @ -agree Are old charts reviewed (outside hosp., previous admission, EMS record, old EKG, old radiological studies, urgent care reports/EKG's, usp records)? Report findings @ -yes Differential Diagnosis (chest pain, altered mental status, abdominal pain women, abdominal pain men, vaginal bleeding, weakness, fever, dyspnea, syncope, headache, dizziness, GI bleed, back pain, seizure, CVA, palpatations, mental health, musculoskeletal)? @ -prior EKG interpreted by me (3pts min.). @ -yes X-rays interpreted by me (1pt min.). @ -yes negative for acute disease CT interpreted by me (1pt min.). @ -no U/S interpreted by me (1pt. min.). @ -no What testing was considered but not performed or refused? (CT, X-rays, U/S, labs)? Why? @ -none What meds were considered but not given or refused? Why? @ -none Did you discuss the management of the patient with other professionals (shivani webb i.e. , PA, [facility], lab, RT, psych nurse, social media community manager, welfare interviewer, teacher, geographic area intelligence officer, rehabilitation case coordinator)? Give summary @ -no Was smoking cessation discussed for >3mins.? @ -no Was critical care preformed (if so, how long)? @ -no Were there social determinants of health that impacted care today? How? (Homelessness, low income, unemployed, alcoholism, drug addiction, transportation, low edu. Level, literacy, decrease access to med. care, usp, rehab)? @ -none Was there de-escalation of care discussed even if they declined (Discuss DNR or withdrawal of care, Hospice)? DNR status @ -no What co-morbidities impacted this encounter? (DM, HTN, Smoking, COPD, CAD, Cancer, CVA, ARF, Chemo, Hep., AIDS, mental health diagnosis, sleep apnea, morbid obesity)? @ -none Was patient admitted / discharged? Hospital course, mention meds given and route, prescriptions, significant lab abnormalities, going to OR and other pertinent info. @ - 83 male to ER for shortness of breath, patient presents with mild CHF on top of severe COPD with prior lobectomy. Patient symptoms are improving here in the ER but feels like discharge, patient no current chest pain no distress and can be discharged home Discharge Undiagnosed new problem with uncertain prognosis? @ -no Drug Therapy requiring intensive monitoring for toxicity (Heparin, Nitro, Insulin, Cardizem)? @ -no Were any procedures done? @ -no Diagnosis/symptom? @ -COPD, CHF, lobectomy Acute, or Chronic, or Acute on Chronic? @ -Acute Uncomplicated (without systemic symptoms) or Complicated (systemic symptoms)? @ -Complicated Side effects of treatment? @ -no Exacerbation, Progression, or Severe Exacerbation? @ -exacerbation Poses a threat to life or bodily function? How? (Chest pain, [place], [place], pneumonia, PE, COPD, DKA, ARF, appy, cholecystitis, CVA, Diverticulitis, Homicidal, Suicidal, threat to staff... and all critical care pts) @ -yes significant respiratory distress Reevaluation #5: Differential Dyspnea: Coronary syndrome, arrhythmia, tamponade, asthma, COPD, pulmonary embolism, pneumonia, pneumothorax, pulmonary effusion, anaphylaxis, diabetic ketoacidosis, flailed chest, pulmonary contusion, diaphragmatic rupture, anemia, neuromuscular, this is not meant to be an all-inclusive list. Medical Decision Making - Medical Decision Making 83 male to ER for shortness of breath, patient presents with mild CHF on top of severe COPD with prior lobectomy. Patient symptoms are improving here in the ER but feels like discharge, patient no current chest pain no distress and can be discharged home - Lab Data Result diagrams: 10/18/23 15:50 10/18/23 15:50 Lab Results 10/18/23 10/18/23 10/18/23 Range/Units 15:50 15:50 15:50 WBC 10.2 (3.8-10.6) k/uL RBC 3.69 L (4.30-5.90) m/uL Hgb 10.9 L (13.0-17.5) gm/dL Hct 33.7 L (39.0-53.0) % MCV 91.1 (80.0-100.0) fL MCH 29.5 (25.0-35.0) pg MCHC 32.4 (31.0-37.0) g/dL RDW 18.6 H (11.5-15.5) % Plt Count 293 (150-450) k/uL MPV 7.9 Neutrophils % 84 % Lymphocytes % 5 % Monocytes % 5 % Eosinophils % 4 % Basophils % 0 % Neutrophils # 8.6 H (1.3-7.7) k/uL Lymphocytes # 0.5 L (1.0-4.8) k/uL Monocytes # 0.5 (0-1.0) k/uL Eosinophils # 0.4 (0-0.7) k/uL Basophils # 0.0 (0-0.2) k/uL Hypochromasia Slight Poikilocytosis Slight Anisocytosis Slight PT 13.0 H (10.0-12.5) sec INR 1.2 H (<1.2) APTT 26.8 (22.0-30.0) sec Sodium 138 (137-145) mmol/L Potassium 3.6 (3.5-5.1) mmol/L Chloride 102 (98-107) mmol/L Carbon Dioxide 27 (22-30) mmol/L Anion Gap 9 mmol/L BUN 16 (9-20) mg/dL Creatinine 0.86 (0.66-1.25) mg/dL Est GFR (CKD-EPI)AfAm >90 (>60 ml/min/1.73 sqM) Est GFR (CKD-EPI)NonAf 80 (>60 ml/min/1.73 sqM) Glucose 113 H (74-99) mg/dL Calcium 8.7 (8.4-10.2) mg/dL Magnesium 1.2 L (1.6-2.3) mg/dL Total Bilirubin 0.7 (0.2-1.3) mg/dL AST 24 (17-59) U/L ALT 18 (4-49) U/L Alkaline Phosphatase 97 (38-126) U/L Troponin I (0.000-0.034) ng/mL NT-Pro-B Natriuret Pep 4150 pg/mL Total Protein 6.2 L (6.3-8.2) g/dL Albumin 3.8 (3.5-5.0) g/dL 10/18/23 Range/Units 15:50 WBC (3.8-10.6) k/uL RBC (4.30-5.90) m/uL Hgb (13.0-17.5) gm/dL Hct (39.0-53.0) % MCV (80.0-100.0) fL MCH (25.0-35.0) pg MCHC (31.0-37.0) g/dL RDW (11.5-15.5) % Plt Count (150-450) k/uL MPV Neutrophils % % Lymphocytes % % Monocytes % % Eosinophils % % Basophils % % Neutrophils # (1.3-7.7) k/uL Lymphocytes # (1.0-4.8) k/uL Monocytes # (0-1.0) k/uL Eosinophils # (0-0.7) k/uL Basophils # (0-0.2) k/uL Hypochromasia Poikilocytosis Anisocytosis PT (10.0-12.5) sec INR (<1.2) APTT (22.0-30.0) sec Sodium (137-145) mmol/L Potassium (3.5-5.1) mmol/L Chloride (98-107) mmol/L Carbon Dioxide (22-30) mmol/L Anion Gap mmol/L BUN (9-20) mg/dL Creatinine (0.66-1.25) mg/dL Est GFR (CKD-EPI)AfAm (>60 ml/min/1.73 sqM) Est GFR (CKD-EPI)NonAf (>60 ml/min/1.73 sqM) Glucose (74-99) mg/dL Calcium (8.4-10.2) mg/dL Magnesium (1.6-2.3) mg/dL Total Bilirubin (0.2-1.3) mg/dL AST (17-59) U/L ALT (4-49) U/L Alkaline Phosphatase (38-126) U/L Troponin I <0.012 (0.000-0.034) ng/mL NT-Pro-B Natriuret Pep pg/mL Total Protein (6.3-8.2) g/dL Albumin (3.5-5.0) g/dL - EKG Data -: EKG Interpreted by Me (EKG is A-fib 78 QRS 88 QTc 417) - Radiology Data Radiology results: report reviewed (Chest x-ray shows mild CHF and volume loss from prior surgery), image reviewed Disposition Clinical Impression: COPD (chronic obstructive pulmonary disease), Bilateral leg edema, Congestive heart failure, Acute pulmonary edema, Hypomagnesemia Disposition: HOME SELF-CARE Condition: Fair Instructions (If sedation given, give patient instructions): Pulmonary Edema (ED), Leg Edema (ED), Hypomagnesemia (ED) Is patient prescribed a controlled substance at d/c from ED?: No Referrals: Kojo Viveros MD [Primary Care Provider] - 1-2 days Time of Disposition: 18:30
[2023-10-18] MEDS: SODIUM CHLORIDE 0.9% 500 ML 500 ML IV STA (15:56)
[2023-10-18 16:12] LABS: Anisocytosis Slight; Basophils % (A) 0 %; Eosinophils # (A) 0.4 k/uL (0-0.7); Eosinophils % (A) 4 %; HCT 33.7 % (39.0-53.0); HGB 10.9 gm/dL (13.0-17.5); Hypochromasia Slight; Lymphocytes # (A) 0.5 k/uL (1.0-4.8); Lymphocytes % (A) 5 %; MCH 29.5 pg (25.0-35.0); MCHC 32.4 g/dL (31.0-37.0); MCV 91.1 fL (80.0-100.0); Mean Platelet Volume 7.9; Monocytes # (A) 0.5 k/uL (0-1.0); Monocytes % (A) 5 %; Neutrophils # (A) 8.6 k/uL (1.3-7.7); Neutrophils % (A) 84 %; Platelet Count 293 k/uL (150-450); Poikilocytosis Slight; RBC 3.69 m/uL (4.30-5.90); RDW 18.6 % (11.5-15.5); WBC 10.2 k/uL (3.8-10.6)
[2023-10-18 16:22] LABS: ALT 18 U/L (4-49); AST 24 U/L (17-59); African American GFR (CKD) >90 (>60 ml/min/1.73 sqM); Albumin 3.8 g/dL (3.5-5.0); Alkaline Phosphatase 97 U/L (38-126); Anion Gap 9 mmol/L; Blood Urea Nitrogen 16 mg/dL (9-20); Calcium 8.7 mg/dL (8.4-10.2); Carbon Dioxide 27 mmol/L (22-30); Chloride 102 mmol/L (98-107); Glucose 113 mg/dL (74-99); Magnesium 1.2 mg/dL (1.6-2.3); Non-African American GFR(CKD) 80 (>60 ml/min/1.73 sqM); Potassium 3.6 mmol/L (3.5-5.1); Sodium 138 mmol/L (137-145); Total Bilirubin 0.7 mg/dL (0.2-1.3); Total Protein 6.2 g/dL (6.3-8.2)
[2023-10-18] MEDS: IPRATROPIUM-ALBUTEROL 3 ML NEB INHALATION STA (16:22)
[2023-10-18 16:28] LABS: INR 1.2 (<1.2); Partial Thromboplastin Time 26.8 sec (22.0-30.0)
[2023-10-18 16:30] LABS: NT-Pro-B-Type Natriuretic Pept 4150 pg/mL
--- NOTE | 2023-10-18 17:54 | XR ---
EXAMINATION TYPE: XR chest 1V portable DATE OF EXAM: 10/18/2023 Comparison: 10/04/2023 Clinical History: 83-year-old male sob. Right lower lobe removal. Findings: Heart is enlarged. Volume loss right hemithorax in keeping with patient's history of right lower lobe ctomy. Interstitial prominence is present. Suspect underlying small right pleural effusion. Some mini mal residual subcutaneous emphysema right chest wall. Impression: 1. Cardiomegaly and interstitial prominence. Small right pleural effusion with adjacent atelectasis a nd/or consolidation as well. Correlate for possible mild CHF. 2. Volume loss right hemithorax in keeping with patient's reported right lower lobectomy.
[2023-10-18] MEDS: FUROSEMIDE 10 MG/ML 10 ML VIAL IV STA (18:43)
[2023-10-18] MEDS: SPIRONOLACTONE 25 MG TAB PO STA (18:45)
[2023-10-18] MEDS: MAGNESIUM OXIDE 400 MG TAB PO STA ×2 (18:45)
[2023-10-18] MEDS: MAGNESIUM SULFATE-D5W PMX 1 GM in DEXTROSE/WATER 1 100ML.BAG IVPB ONE (18:47)
[2023-10-18] MEDS: SODIUM CHLORIDE 0.9% 1,000 ML IV STA (18:53)
[2023-10-18 20:20] VITALS: BP 149/64; PULSE 88; TEMP 97.9
== END 2023-10-18 20:03 | disposition home or self-care (01) ==
LOC: EC 15:21
DX: J44.9 Chronic obstructive pulmonary disease, unspecified (principal); I11.0 Hypertensive heart disease with heart failure; I50.1 Left ventricular failure, unspecified; E83.42 Hypomagnesemia; R60.0 Localized edema; E78.5 Hyperlipidemia, unspecified; I48.91 Unspecified atrial fibrillation; I25.10 Atherosclerotic heart disease of native coronary artery without angina pectoris; G47.30 Sleep apnea, unspecified; Z79.02 Long term (current) use of antithrombotics/antiplatelets; Z79.51 Long term (current) use of inhaled steroids; Z88.8 Allergy status to other drugs, medicaments and biological substances
CPT/HCPCS: 36415; 94640; 93005; 83880; 80053; 83735; 84484; 85025; 85610; 85730; 71045; 99285; 96365; 96375; 96361; J1940; J3475

== ENCOUNTER 2023-10-21 12:15 | Observation (INO) | payer MEDICARE ==
--- NOTE | 2023-10-21 12:40 | ED ---
SOB HPI - General Source: patient, RN notes reviewed Mode of arrival: wheelchair Limitations: no limitations - History of Present Illness MD Complaint: shortness of breath <Kimberly Qiu - Last Filed: 10/21/23 12:38> <Nura Sam - Last Filed: 10/21/23 21:43> - General Chief Complaint: Shortness of Breath Stated Complaint: Water retention in feet Time Seen by Provider: 10/21/23 12:38 - History of Present Illness Initial Comments: This is an 83-year-old male who presents to the emergency department for shortness of breath and lower extremity swelling. Patient reports a history of CHF and COPD. He is on Lasix. He was evaluated for this here a couple of days ago, but states that he is not getting any better. (Kimberly Qiu) - Related Data Home Medications Medication Instructions Recorded Confirmed Clopidogrel Bisulfate [Plavix] 75 mg PO DAILY 09/03/17 10/21/23 Nitroglycerin Sl Tabs [Nitrostat] 0.4 mg SL Q5M PRN 09/03/17 10/21/23 Ranolazine [Ranexa] 500 mg PO BID 09/03/17 10/21/23 Albuterol Nebulized [Ventolin 1.25 mg INHALATION RT-Q6H PRN 08/30/23 10/21/23 Nebulized (Accuneb)] Colchicine 0.6 mg PO DAILY PRN 08/30/23 10/21/23 Mv-Min/Folic/K1/Lycopen/Lutein 1 tab PO DAILY 08/30/23 10/21/23 [Centrum Silver Men Tablet] Omeprazole 40 mg PO HS 08/30/23 10/21/23 Tirzepatide [Mounjaro] 10 mg SQ TU 08/30/23 10/21/23 allopurinoL [Zyloprim] 300 mg PO DAILY 08/30/23 10/21/23 Fluticasone/Umeclidin/Vilanter 1 puff INHALATION RT-DAILY 09/18/23 10/21/23 [Trelegy Ellipta 100-62.5-25] Previous Rx's Medication Instructions Recorded Acetaminophen Tab [Tylenol] 650 mg PO Q4HR PRN tab 10/04/23 Benzonatate [Tessalon Perles] 200 mg PO TID #120 cap 10/04/23 Isosorbide Mononitrate ER [Imdur] 30 mg PO DAILY #30 tab 10/04/23 guaiFENesin [Mucinex] 600 mg PO Q12HR #60 tab 10/04/23 lisinopriL [Zestril] 10 mg PO DAILY tab 10/04/23 Lactulose [Cephulac] 20 gm PO Q8HR PRN 90 Days #90 ml 10/07/23 Furosemide [Lasix] 40 mg PO DAILY 90 Days #90 tab 10/10/23 Ipratropium-Albuterol Nebulize 3 ml INHALATION RT-QID 30 Days 10/10/23 [Duoneb 0.5 mg-3 mg/3 ml Soln] #120 each Metoprolol Tartrate [Lopressor] 50 mg PO BID 90 Days #180 tab 10/10/23 Sodium Chloride 0.65% Nasal [Deep 2 spray NASAL QID PRN ml 10/10/23 Sea (Saline)] Allergies Allergy/AdvReac Type Severity Reaction Status Date / Time cortisone [Cortisone] Allergy Swelling Verified 10/21/23 12:35 and itching surgical tape Allergy "Broke Uncoded 09/29/23 06:13 out" "Got infection" Review of Systems ROS Other: All systems not noted in ROS Statement are negative. <Kimberly Qiu - Last Filed: 10/21/23 12:38> ROS Other: All systems not noted in ROS Statement are negative. <Nura Sam - Last Filed: 10/21/23 21:43> ROS Statement: Those systems with pertinent positive or pertinent negative responses have been documented in the HPI. Past Medical History Past Medical History: Atrial Fibrillation, Coronary Artery Disease (CAD), Cancer, Eye Disorder, GI Bleed, Hyperlipidemia, Hypertension, Pneumonia, Skin Disorder, Sleep Apnea/CPAP/BIPAP, Vascular Disorder Additional Past Medical History / Comment(s): dx of lung CA Aug 2023, pneumonia Sep 2023, recent dx hemoptysis-post bronchoscopy- Sep 2023, pt states he is still coughing up blood but "It's a lot less.", back pain-increased pain with walking,Vertigo, hiatal hernia, gout, eczema, bleeds easily, uses cpap, history of prostate cancer, cataract lt eye, "I have circulation issues with my legs." "My oyster cultivator said we were going to deal with my lungs first before worrying about my legs.", pt reports swelling to bilat legs due to "I injured them falling off a ladder and my legs got stuck in ladder." History of Any Multi-Drug Resistant Organisms: None Reported Past Surgical History: Cholecystectomy, Heart Catheterization With Stent, Orthopedic Surgery, Prostate Surgery Additional Past Surgical History / Comment(s): Recent Bronchoscopy Aug 2023, Exploratory Abdominal Surgery; ORIF titanium/screws in LT Ankle. REPAIR BICEP TENDON LT ARM. RT CATARACT. STENTS X2. cyst removed from under chin, prostate surgery with 44 radiation txs, Watchman procedure, R lung lower lobectomy 09/28 Past Anesthesia/Blood Transfusion Reactions: Previous Problems w/ Anesthesia Additional Past Anesthesia/Blood Transfusion Reaction / Comment(s): DEVELOPED AFIB AFTER CATARACT SURG 2013. No hx of blood transfusions. Date of Last Stent Placement:: 2013 Past Psychological History: No Psychological Hx Reported Smoking Status: Former smoker Past Alcohol Use History: None Reported Past Drug Use History: None Reported - Past Family History Mother Family Medical History: Coronary Artery Disease (CAD), Myocardial Infarction (MS) Additional Family Medical History / Comment(s): from myocardial infarction at 69 years old Father Family Medical History: Coronary Artery Disease (CAD), Myocardial Infarction (MS) Additional Family Medical History / Comment(s): from myocardial infarction at 69 years old <Kimberly Qiu - Last Filed: 10/21/23 12:38> General Exam Limitations: no limitations <Kimberly Qiu - Last Filed: 10/21/23 12:38> General appearance: alert, in no apparent distress Head exam: Present: atraumatic, normocephalic, normal inspection Eye exam: Present: normal appearance, PERRL, EOMI. Absent: scleral icterus, conjunctival injection, periorbital swelling ENT exam: Present: normal exam, mucous membranes moist Neck exam: Present: normal inspection, full ROM, other. Absent: tenderness, meningismus, lymphadenopathy Respiratory exam: Present: decreased breath sounds (Decreased breath sounds right lung base with dullness to percussion). Absent: respiratory distress, wheezes, rales, rhonchi, stridor Cardiovascular Exam: Present: irregular rhythm. Absent: systolic murmur, diastolic murmur, rubs, gallop, clicks GI/Abdominal exam: Present: soft, normal bowel sounds. Absent: distended, tenderness, guarding, rebound, rigid Rectal exam: Present: deferred Extremities exam: Present: full ROM, normal capillary refill, pedal edema (Po sitive edema up to both knees bilaterally). Absent: tenderness, joint swelling, calf tenderness Back exam: Present: normal inspection Neurological exam: Present: alert, oriented X3, CN II-XII intact Psychiatric exam: Present: normal affect, normal mood Skin exam: Present: warm, dry, intact, normal color. Absent: rash <Nura Sam - Last Filed: 10/21/23 21:43> - General Exam Comments Initial Comments: Visual Physical Exam Vital signs reviewed General: Well-appearing, nontoxic, no acute distress. Head: Normocephalic, atraumatic Eyes: PERRLA, EOMI ENT: Airway patent Chest: Nonlabored breathing Skin: No visual rash, normal skin tone Neuro: Alert and oriented 3 Musculoskeletal: No gross abnormalities (Kimberly Qiu) Is a well-developed well-nourished awake alert oriented x 4 male (Nura Sam) Course Vital Signs 10/21/23 12:31 Temperature 98.6 F Pulse Rate 66 Respiratory 16 Rate Blood Pressure 113/69 O2 Sat by Pulse 98 Oximetry Medical Decision Making <Kimberly Qiu - Last Filed: 10/21/23 12:38> - Lab Data Result diagrams: 10/21/23 16:18 10/21/23 16:18 - EKG Data -: EKG Interpreted by Me <Nura Sam - Last Filed: 10/21/23 21:43> - Medical Decision Making I performed the QuickNote portion of this chart. Signed Kimberly Qiu PA-C. (Kimberly Qiu) I did discuss the findings with the patient and family including interpretation of the labs. This included the x-ray and EKG. Patient will be admitted I did discuss the case with Priti vincent for Dr. Jack. Who is covering Dr. Viveros. Patient will be admitted for IV Lasix as well as pulmonary consultation. Also cardiology consultation. Was pt. sent in by a medical professional or institution (, PA, [facility], urgent care, hospital, or fdc...) When possible be specific @ -No Did you speak to anyone other than the patient for history (EMS, parent, family, police, friend...)? What history was obtained from this source @ -Family Did you review nursing and triage notes (agree or disagree)? Why? @ -I reviewed and agree with nursing and triage notes Were old charts reviewed (outside hosp., previous admission, EMS record, old EKG, old radiological studies, urgent care reports/EKG's, fdc records)? Report findings @ -Old charts were reviewed Differential Diagnosis (chest pain, altered mental status, abdominal pain women, abdominal pain men, vaginal bleeding, weakness, fever, dyspnea, syncope, headache, dizziness, GI bleed, back pain, seizure, CVA, palpatations, mental health, musculoskeletal)? @ -Not applicable EKG interpreted by me (3pts min.). @ -As above atrial fibrillation with a rate of 79 QRS duration 84 QT/QTc 388/444 evidence of old septal infarct this was interpreted by me. X-rays interpreted by me (1pt min.). @ -Chest x-ray interpreted by me evidence of a moderate-sized right-sided pleural effusion CT interpreted by me (1pt min.). @ -None done U/S interpreted by me (1pt. min.). @ -None done What testing was considered but not performed or refused? (CT, X-rays, U/S, labs)? Why? @ -None What meds were considered but not given or refused? Why? @ -None Did you discuss the management of the patient with other professionals (professionals i.e. , PA, [facility], lab, RT, psych nurse, administrator social welfare, cocoa room operator, teacher, adult parole officer, casey saw operator)? Give summary @ -Priti vincent for Dr. Jack Was smoking cessation discussed for >3mins.? @ -No Was critical care preformed (if so, how long)? @ -No Were there social determinants of health that impacted care today? How? (Homelessness, low income, unemployed, alcoholism, drug addiction, transportation, low edu. Level, literacy, decrease access to med. care, snf, rehab)? @ -No Was there de-escalation of care discussed even if they declined (Discuss DNR or withdrawal of care, Hospice)? DNR status @ -No What co-morbidities impacted this encounter? (DM, HTN, Smoking, COPD, CAD, Cancer, CVA, ARF, Chemo, Hep., AIDS, mental health diagnosis, sleep apnea, morbid obesity)? @ -Chronic atrial fibrillation, recent right lung mass resection hypertension CHF COPD Was patient admitted / discharged? Hospital course, mention meds given and route, prescriptions, significant lab abnormalities, going to OR and other pertinent info. @ -Hospital course she was admitted for inpatient treatment IV Lasix and pul monary as well as cardiology consultation Undiagnosed new problem with uncertain prognosis? @ -No Drug Therapy requiring intensive monitoring for toxicity (Heparin, Nitro, Insulin, Cardizem)? @ -No Were any procedures done? @ -No Diagnosis/symptom? @ -CHF, right pleural effusion, outpatient treatment failure Acute, or Chronic, or Acute on Chronic? @ -Acute Uncomplicated (without systemic symptoms) or Complicated (systemic symptoms)? @ -Default Side effects of treatment? @ -No Exacerbation, Progression, or Severe Exacerbation? @ -Progression Poses a threat to life or bodily function? How? (Chest pain, USA, MS, pneumonia, PE, COPD, DKA, ARF, appy, cholecystitis, CVA, Diverticulitis, Homicidal, Suicidal, threat to staff... and all critical care pts) @ -Potential (Nura Sam) - Lab Data Lab Results 10/21/23 10/21/23 10/21/23 Range/Units 16:18 16:18 16:18 WBC 10.3 (3.8-10.6) k/uL RBC 3.72 L (4.30-5.90) m/uL Hgb 11.1 L (13.0-17.5) gm/dL Hct 33.9 L (39.0-53.0) % MCV 91.2 (80.0-100.0) fL MCH 29.8 (25.0-35.0) pg MCHC 32.7 (31.0-37.0) g/dL RDW 18.1 H (11.5-15.5) % Plt Count 300 (150-450) k/uL MPV 7.7 Neutrophils % 83 % Lymphocytes % 5 % Monocytes % 5 % Eosinophils % 5 % Basophils % 0 % Neutrophils # 8.5 H (1.3-7.7) k/uL Lymphocytes # 0.6 L (1.0-4.8) k/uL Monocytes # 0.5 (0-1.0) k/uL Eosinophils # 0.5 (0-0.7) k/uL Basophils # 0.0 (0-0.2) k/uL Hypochromasia Slight Poikilocytosis Slight Anisocytosis Slight PT 12.6 H (10.0-12.5) sec INR 1.2 H (<1.2) APTT 26.8 (22.0-30.0) sec Sodium 138 (137-145) mmol/L Potassium 3.6 (3.5-5.1) mmol/L Chloride 102 (98-107) mmol/L Carbon Dioxide 28 (22-30) mmol/L Anion Gap 8 mmol/L BUN 20 (9-20) mg/dL Creatinine 1.02 (0.66-1.25) mg/dL Est GFR (CKD-EPI)AfAm 78 (>60 ml/min/1.73 sqM) Est GFR (CKD-EPI)NonAf 68 (>60 ml/min/1.73 sqM) Glucose 102 H (74-99) mg/dL Plasma Lactic Acid Yeison (0.7-2.0) mmol/L Calcium 9.0 (8.4-10.2) mg/dL Magnesium 1.4 L (1.6-2.3) mg/dL Total Bilirubin 0.9 (0.2-1.3) mg/dL AST 24 (17-59) U/L ALT 15 (4-49) U/L Alkaline Phosphatase 85 (38-126) U/L Troponin I (0.000-0.034) ng/mL NT-Pro-B Natriuret Pep 2340 pg/mL Total Protein 6.2 L (6.3-8.2) g/dL Albumin 3.8 (3.5-5.0) g/dL 10/21/23 10/21/23 Range/Units 16:18 16:18 WBC (3.8-10.6) k/uL RBC (4.30-5.90) m/uL Hgb (13.0-17.5) gm/dL Hct (39.0-53.0) % MCV (80.0-100.0) fL MCH (25.0-35.0) pg MCHC (31.0-37.0) g/dL RDW (11.5-15.5) % Plt Count (150-450) k/uL MPV Neutrophils % % Lymphocytes % % Monocytes % % Eosinophils % % Basophils % % Neutrophils # (1.3-7.7) k/uL Lymphocytes # (1.0-4.8) k/uL Monocytes # (0-1.0) k/uL Eosinophils # (0-0.7) k/uL Basophils # (0-0.2) k/uL Hypochromasia Poikilocytosis Anisocytosis PT (10.0-12.5) sec INR (<1.2) APTT (22.0-30.0) sec Sodium (137-145) mmol/L Potassium (3.5-5.1) mmol/L Chloride (98-107) mmol/L Carbon Dioxide (22-30) mmol/L Anion Gap mmol/L BUN (9-20) mg/dL Creatinine (0.66-1.25) mg/dL Est GFR (CKD-EPI)AfAm (>60 ml/min/1.73 sqM) Est GFR (CKD-EPI)NonAf (>60 ml/min/1.73 sqM) Glucose (74-99) mg/dL Plasma Lactic Acid Yeison 1.5 (0.7-2.0) mmol/L Calcium (8.4-10.2) mg/dL Magnesium (1.6-2.3) mg/dL Total Bilirubin (0.2-1.3) mg/dL AST (17-59) U/L ALT (4-49) U/L Alkaline Phosphatase (38-126) U/L Troponin I <0.012 (0.000-0.034) ng/mL NT-Pro-B Natriuret Pep pg/mL Total Protein (6.3-8.2) g/dL Albumin (3.5-5.0) g/dL - EKG Data EKG Comments: Atrial fibrillation rate of 79 QRS duration 84 QT/QTc 388/444 evidence of septal infarct configuration undetermined age (Nura Sam) - Radiology Data Interpreted by me: Chest x-ray interpreted by me evidence of a moderate size right pleural effusion (Nura Sam) Disposition <Kimberly Qiu - Last Filed: 10/21/23 12:38> Decision Date: 10/21/23 Decision Time: 20:30 <Nura Sam - Last Filed: 10/21/23 21:43> Clinical Impression: Congestive heart failure, acute, Recurrent right pleural effusion, Failure of outpatient treatment, Dyspnea, Elevated brain natriuretic peptide (BNP) level Disposition: ADMITTED IP TO THIS [facility] Condition: Fair Referrals: Kojo Viveros MD [Primary Care Provider] - 1-2 days
--- NOTE | 2023-10-21 14:34 | XR ---
EXAMINATION TYPE: XR chest 2V DATE OF EXAM: 10/21/2023 COMPARISON: 10/18/2023. HISTORY: Difficulty breathing. TECHNIQUE: Frontal and lateral views of the chest are obtained. FINDINGS: There is a moderate right pleural effusion. The lungs otherwise appear clear. The cardiac silhouette is moderately enlarged and the pulmonary vessels are within normal limits. IMPRESSION: Moderate right pleural effusion. Follow to resolution is recommended. Cardiomegaly.
[2023-10-21 16:37] LABS: Anisocytosis Slight; Basophils % (A) 0 %; Eosinophils # (A) 0.5 k/uL (0-0.7); Eosinophils % (A) 5 %; HCT 33.9 % (39.0-53.0); HGB 11.1 gm/dL (13.0-17.5); Hypochromasia Slight; Lymphocytes # (A) 0.6 k/uL (1.0-4.8); Lymphocytes % (A) 5 %; MCH 29.8 pg (25.0-35.0); MCHC 32.7 g/dL (31.0-37.0); MCV 91.2 fL (80.0-100.0); Mean Platelet Volume 7.7; Monocytes # (A) 0.5 k/uL (0-1.0); Monocytes % (A) 5 %; Neutrophils # (A) 8.5 k/uL (1.3-7.7); Neutrophils % (A) 83 %; Platelet Count 300 k/uL (150-450); Poikilocytosis Slight; RBC 3.72 m/uL (4.30-5.90); RDW 18.1 % (11.5-15.5); WBC 10.3 k/uL (3.8-10.6)
[2023-10-21 16:49] LABS: INR 1.2 (<1.2); Partial Thromboplastin Time 26.8 sec (22.0-30.0); Prothrombin Time 12.6 sec (10.0-12.5)
[2023-10-21 16:54] LABS: ALT 15 U/L (4-49); AST 24 U/L (17-59); African American GFR (CKD) 78 (>60 ml/min/1.73 sqM); Albumin 3.8 g/dL (3.5-5.0); Alkaline Phosphatase 85 U/L (38-126); Anion Gap 8 mmol/L; Blood Urea Nitrogen 20 mg/dL (9-20); Carbon Dioxide 28 mmol/L (22-30); Chloride 102 mmol/L (98-107); Glucose 102 mg/dL (74-99); Magnesium 1.4 mg/dL (1.6-2.3); Non-African American GFR(CKD) 68 (>60 ml/min/1.73 sqM); Potassium 3.6 mmol/L (3.5-5.1); Sodium 138 mmol/L (137-145); Total Bilirubin 0.9 mg/dL (0.2-1.3); Total Protein 6.2 g/dL (6.3-8.2)
[2023-10-21 17:03] LABS: NT-Pro-B-Type Natriuretic Pept 2340 pg/mL
--- NOTE | 2023-10-21 21:44 | ED ---
Medical Decision Making - Lab Data Result diagrams: 10/21/23 16:18 10/21/23 16:18 Lab Results 10/21/23 10/21/23 10/21/23 Range/Units 16:18 16:18 16:18 WBC 10.3 (3.8-10.6) k/uL RBC 3.72 L (4.30-5.90) m/uL Hgb 11.1 L (13.0-17.5) gm/dL Hct 33.9 L (39.0-53.0) % MCV 91.2 (80.0-100.0) fL MCH 29.8 (25.0-35.0) pg MCHC 32.7 (31.0-37.0) g/dL RDW 18.1 H (11.5-15.5) % Plt Count 300 (150-450) k/uL MPV 7.7 Neutrophils % 83 % Lymphocytes % 5 % Monocytes % 5 % Eosinophils % 5 % Basophils % 0 % Neutrophils # 8.5 H (1.3-7.7) k/uL Lymphocytes # 0.6 L (1.0-4.8) k/uL Monocytes # 0.5 (0-1.0) k/uL Eosinophils # 0.5 (0-0.7) k/uL Basophils # 0.0 (0-0.2) k/uL Hypochromasia Slight Poikilocytosis Slight Anisocytosis Slight PT 12.6 H (10.0-12.5) sec INR 1.2 H (<1.2) APTT 26.8 (22.0-30.0) sec Sodium 138 (137-145) mmol/L Potassium 3.6 (3.5-5.1) mmol/L Chloride 102 (98-107) mmol/L Carbon Dioxide 28 (22-30) mmol/L Anion Gap 8 mmol/L BUN 20 (9-20) mg/dL Creatinine 1.02 (0.66-1.25) mg/dL Est GFR (CKD-EPI)AfAm 78 (>60 ml/min/1.73 sqM) Est GFR (CKD-EPI)NonAf 68 (>60 ml/min/1.73 sqM) Glucose 102 H (74-99) mg/dL Plasma Lactic Acid Yeison (0.7-2.0) mmol/L Calcium 9.0 (8.4-10.2) mg/dL Magnesium 1.4 L (1.6-2.3) mg/dL Total Bilirubin 0.9 (0.2-1.3) mg/dL AST 24 (17-59) U/L ALT 15 (4-49) U/L Alkaline Phosphatase 85 (38-126) U/L Troponin I (0.000-0.034) ng/mL NT-Pro-B Natriuret Pep 2340 pg/mL Total Protein 6.2 L (6.3-8.2) g/dL Albumin 3.8 (3.5-5.0) g/dL 10/21/23 10/21/23 Range/Units 16:18 16:18 WBC (3.8-10.6) k/uL RBC (4.30-5.90) m/uL Hgb (13.0-17.5) gm/dL Hct (39.0-53.0) % MCV (80.0-100.0) fL MCH (25.0-35.0) pg MCHC (31.0-37.0) g/dL RDW (11.5-15.5) % Plt Count (150-450) k/uL MPV Neutrophils % % Lymphocytes % % Monocytes % % Eosinophils % % Basophils % % Neutrophils # (1.3-7.7) k/uL Lymphocytes # (1.0-4.8) k/uL Monocytes # (0-1.0) k/uL Eosinophils # (0-0.7) k/uL Basophils # (0-0.2) k/uL Hypochromasia Poikilocytosis Anisocytosis PT (10.0-12.5) sec INR (<1.2) APTT (22.0-30.0) sec Sodium (137-145) mmol/L Potassium (3.5-5.1) mmol/L Chloride (98-107) mmol/L Carbon Dioxide (22-30) mmol/L Anion Gap mmol/L BUN (9-20) mg/dL Creatinine (0.66-1.25) mg/dL Est GFR (CKD-EPI)AfAm (>60 ml/min/1.73 sqM) Est GFR (CKD-EPI)NonAf (>60 ml/min/1.73 sqM) Glucose (74-99) mg/dL Plasma Lactic Acid Yeison 1.5 (0.7-2.0) mmol/L Calcium (8.4-10.2) mg/dL Magnesium (1.6-2.3) mg/dL Total Bilirubin (0.2-1.3) mg/dL AST (17-59) U/L ALT (4-49) U/L Alkaline Phosphatase (38-126) U/L Troponin I <0.012 (0.000-0.034) ng/mL NT-Pro-B Natriuret Pep pg/mL Total Protein (6.3-8.2) g/dL Albumin (3.5-5.0) g/dL Disposition Clinical Impression: Congestive heart failure, acute, Recurrent right pleural effusion, Failure of outpatient treatment, Dyspnea, Elevated brain natriuretic peptide (BNP) level, Chronic atrial fibrillation Disposition: ADMITTED IP TO THIS [facility] Condition: Fair Referrals: Kojo Viveros MD [Primary Care Provider] - 1-2 days Decision Date: 10/21/23 Decision Time: 21:44
[2023-10-21] MEDS ORDERED: ALBUTEROL NEBULIZED 1.25 MG/3 ML INHALATION PRN (21:47)
[2023-10-21] MEDS ORDERED: ACETAMINOPHEN TAB 325 MG TAB PO PRN (21:47)
[2023-10-21] MEDS: FUROSEMIDE 10 MG/ML 4 ML VIAL IV SCH (22:57)
[2023-10-21] MEDS: BENZONATATE 100 MG CAP PO SCH (22:57)
[2023-10-22] MEDS ORDERED: LACTULOSE 20 GM/30 ML CUP PO PRN
[2023-10-22] MEDS: SYMBICORT 80-4.5 MCG INHALER INHALATION SCH (08:19)
[2023-10-22] MEDS: IPRATROPIUM-ALBUTEROL 3 ML NEB INHALATION SCH (08:19)
[2023-10-22] MEDS ORDERED: SODIUM CHLORIDE 0.65% NASAL SPRAY 44 ML BTL NASAL PRN (09:00)
[2023-10-22] MEDS ORDERED: COLCHICINE 0.6 MG EACH PO PRN (09:00)
--- NOTE | 2023-10-22 09:03 | US ---
EXAMINATION TYPE: US chest DATE OF EXAM: 10/22/2023 COMPARISON: Chest CT August 30, 2023. Chest x-ray one day earlier CLINICAL INDICATION: Male, 83 years old with history of Markings for thoracentesis by pulmonary staff ; right pleural effusion TECHNIQUE: Targeted ultrasound of the posterior lower bilateral hemithoraces EXAM MEASUREMENTS: Right Pleural Effusion pocket size: 9.0 cm - possible septation noted Right skin surface to fluid distance: 3.4 cm Left Pleural Effusion pocket size: no sizeable fluid pocket visualized at this time Right side marked for possible thoracentesis outside the dept. Left side NOT marked for possible thoracentesis outside the dept. Pulmonologists are able to review the images in the patient?s EMR. No significant left-sided pleural effusion on images saved. Small right-sided pleural effusion on chayo ges saved. Findings correlate with x-ray one day earlier. IMPRESSIONS: As above.
[2023-10-22] MEDS: FUROSEMIDE 40 MG TAB PO SCH (09:25)
[2023-10-22] MEDS: lisinopriL 10 MG TAB PO SCH (09:56)
[2023-10-22] MEDS: allopurinoL 300 MG TAB PO SCH (09:56)
[2023-10-22] MEDS: ISOSORBIDE MONONITRATE ER 30 MG TAB.ER.24H PO SCH (09:56)
[2023-10-22] MEDS: RANOLAZINE 500 MG TAB.ER.12H PO SCH (09:56)
[2023-10-22] MEDS: METOPROLOL TARTRATE 50 MG TAB PO SCH (09:56)
[2023-10-22] MEDS: guaiFENesin 600 MG TABLET.ER PO SCH (09:56)
[2023-10-22] MEDS: CLOPIDOGREL 75 MG TAB PO SCH (09:56)
--- NOTE | 2023-10-22 09:56 | P.CRDCN ---
History of Present Illness History of present illness: HISTORY OF PRESENT ILLNESS: This is a 83 year old male with a past medical history significant for permanent atrial fibrillation, cardioversion, coronary artery disease with previous sten ting, hypertension, hyperlipidemia, and lung cancer with recent right lower lobe resection. Patient follows with Dr. Kuhn. We have been asked to see the patient in consultation for congestive heart failure. Patient examined at the bedside. Patient underwent right lower lobectomy on September 29, 2023. The patient states he is supposed to follow-up with his oncologist next week to determine the next course of action but he does not think he will have to undergo chemo or radiation. Patient states he has been feeling short of breath since having his lobectomy. He reports increased lower extremity edema. He denies any chest pain or pressure. Patient was found to be in acute CHF and was started on IV Lasix. DIAGNOSTICS: - EKG reveals atrial fibrillation with controlled ventricular rate - Chest xray moderate right pleural effusion. Cardiomegaly. - Laboratory data: WBC 10.3. Hemoglobin 11.1. Platelet count 300. Sodium 138. Potassium 3.6. BUN 20. Creatinine 1.02. Troponin negative x 1. proBNP 2340. - Current home cardiac medications include lisinopril 10 mg daily, Ranexa 500 mg twice a day, Imdur 30 mg daily, Lasix 40 mg daily, Plavix 75 mg daily. - Most recent echocardiogram obtained on 10/08/2023 revealed ejection fraction 50 to 55%, moderate to severe pulmonary hypertension, mild mitral regurgitation, and moderate tricuspid regurgitation REVIEW OF SYSTEMS: At the time of my exam: CONSTITUTIONAL: Denies fever or chills. HEENT: Denies blurred vision, vision changes, or eye pain. Denies hemoptysis CARDIOVASCULAR: Denies chest pain. Denies orthopnea. Denies PND. Denies palpitations RESPIRATORY: Reports shortness of breath. GASTROINTESTINAL: Denies abdominal pain. Denies nausea or vomiting. HEMATOLOGIC: Denies bleeding disorders. GENITOURINARY: Denies any blood in urine. SKIN: Denies pruitis. Denies rash. PHYSICAL EXAM: VITAL SIGNS: Reviewed. GENERAL: Well-developed in no acute distress. HEENT: Head is normocephalic. Pupils are equal, round. Sclerae anicteric. Mucous membranes of the mouth are moist. Neck supple. No JVD or thyromegaly LUNGS: Respirations even and unlabored. Lungs essentially clear to auscultation bilaterally, diminished to right lower lobe. HEART: Irregular rate and rhythm. S1 and S2 heard. ABDOMEN: Soft. Nondistended. Nontender. EXTREMITIES: Normal range of motion. No clubbing or cyanosis. Peripheral pulses intact. 3+ bilateral lower extremity edema, worse at the ankles NEUROLOGIC: Awake and alert. Oriented x 3. ASSESSMENT: Shortness of breath Acute on chronic heart failure with preserved EF, 50 to 55% Recent right lower lobe lobectomy, September 29, 2023 Moderate right-sided pleural effusion History of Watchman device History of cardioversion x 1 Coronary artery disease with previous stenting, details unknown Hypertension Hyperlipidemia PLAN: Obtain limited echo to assess LV function Continue IV Lasix 40 mg every 12 hours Resume additional home cardiac medications Daily weights, accurate I&O, and monitoring of kidney function Further recommendations pending patient course Nurse practitioner note has been reviewed by physician. Signing provider agrees with the documented findings, assessment, and plan of care documented by TRIM ATTACHER as a scribe. Past Medical History Past Medical History: Atrial Fibrillation, Coronary Artery Disease (CAD), Cancer, Eye Disorder, GI Bleed, Hyperlipidemia, Hypertension, Pneumonia, Skin Disorder, Sleep Apnea/CPAP/BIPAP, Vascular Disorder Additional Past Medical History / Comment(s): dx of lung CA Aug 2023, pneumonia Sep 2023, recent dx hemoptysis-post bronchoscopy- Sep 2023, pt states he is still coughing up blood but "It's a lot less.", back pain-increased pain with walking,Vertigo, hiatal hernia, gout, eczema, bleeds easily, uses cpap, history of prostate cancer, cataract lt eye, "I have circulation issues with my legs." "My clinical dental technician said we were going to deal with my lungs first before worrying about my legs.", pt reports swelling to bilat legs due to "I injured them falling off a ladder and my legs got stuck in ladder." History of Any Multi-Drug Resistant Organisms: None Reported Past Surgical History: Cholecystectomy, Heart Catheterization With Stent, Orthopedic Surgery, Prostate Surgery Additional Past Surgical History / Comment(s): Recent Bronchoscopy Aug 2023, Exploratory Abdominal Surgery; ORIF titanium/screws in LT Ankle. REPAIR BICEP TENDON LT ARM. RT CATARACT. STENTS X2. cyst removed from under chin, prostate surgery with 44 radiation txs, Watchman procedure, R lung lower lobectomy 09/28 Past Anesthesia/Blood Transfusion Reactions: Previous Problems w/ Anesthesia Additional Past Anesthesia/Blood Transfusion Reaction / Comment(s): DEVELOPED AFIB AFTER CATARACT SURG 2013. No hx of blood transfusions. Date of Last Stent Placement:: 2013 Past Psychological History: No Psychological Hx Reported Smoking Status: Former smoker Past Alcohol Use History: None Reported Additional Past Alcohol Use History / Comment(s): SMOKED 20 YRS, 1 PPD, QUIT 1979 Past Drug Use History: None Reported - Past Family History Mother Family Medical History: Coronary Artery Disease (CAD), Myocardial Infarction ([place]) Additional Family Medical History / Comment(s): from myocardial infarction at 69 years old Father Family Medical History: Coronary Artery Disease (CAD), Myocardial Infarction ([place]) Additional Family Medical History / Comment(s): from myocardial infarction at 69 years old Medications and Allergies Home Medications Medication Instructions Recorded Confirmed Type Clopidogrel Bisulfate [Plavix] 75 mg PO DAILY 09/03/17 10/21/23 History Nitroglycerin Sl Tabs [Nitrostat] 0.4 mg SL Q5M PRN 09/03/17 10/21/23 History Ranolazine [Ranexa] 500 mg PO BID 09/03/17 10/21/23 History Albuterol Nebulized [Ventolin 1.25 mg INHALATION RT-Q6H PRN 08/30/23 10/21/23 History Nebulized (Accuneb)] Colchicine 0.6 mg PO DAILY PRN 08/30/23 10/21/23 History Mv-Min/Folic/K1/Lycopen/Lutein 1 tab PO DAILY 08/30/23 10/21/23 History [Centrum Silver Men Tablet] Omeprazole 40 mg PO HS 08/30/23 10/21/23 History Tirzepatide [Mounjaro] 10 mg SQ TU 08/30/23 10/21/23 History allopurinoL [Zyloprim] 300 mg PO DAILY 08/30/23 10/21/23 History Fluticasone/Umeclidin/Vilanter 1 puff INHALATION RT-DAILY 09/18/23 10/21/23 History [Trelegy Ellipta 100-62.5-25] Acetaminophen Tab [Tylenol] 650 mg PO Q4HR PRN tab 10/04/23 10/21/23 Rx Benzonatate [Tessalon Perles] 200 mg PO TID #120 cap 10/04/23 10/21/23 Rx Isosorbide Mononitrate ER [Imdur] 30 mg PO DAILY #30 tab 10/04/23 10/21/23 Rx guaiFENesin [Mucinex] 600 mg PO Q12HR #60 tab 10/04/23 10/21/23 Rx lisinopriL [Zestril] 10 mg PO DAILY tab 10/04/23 10/21/23 Rx Lactulose [Cephulac] 20 gm PO Q8HR PRN 90 Days #90 ml 10/07/23 10/21/23 Rx Furosemide [Lasix] 40 mg PO DAILY 90 Days #90 tab 10/10/23 10/21/23 Rx Ipratropium-Albuterol Nebulize 3 ml INHALATION RT-QID 30 Days 10/10/23 10/21/23 Rx [Duoneb 0.5 mg-3 mg/3 ml Soln] #120 each Metoprolol Tartrate [Lopressor] 50 mg PO BID 90 Days #180 tab 10/10/23 10/21/23 Rx Sodium Chloride 0.65% Nasal [Deep 2 spray NASAL QID PRN ml 10/10/23 10/21/23 Rx Sea (Saline)] Allergies Allergy/AdvReac Type Severity Reaction Status Date / Time cortisone [Cortisone] Allergy Swelling Verified 10/21/23 12:35 and itching surgical tape Allergy "Broke Uncoded 09/29/23 06:13 out" "Got infection" Physical Exam Vitals: Vital Signs Temp Pulse Pulse Resp BP BP Pulse Ox 10/22/23 07:00 97.6 F 112 H 18 124/68 95 10/22/23 02:00 85 16 10/22/23 01:08 98.4 F 85 16 140/68 96 10/21/23 23:00 88 20 136/57 96 10/21/23 22:00 150/70 97 10/21/23 21:00 153/78 96 10/21/23 20:51 95 10/21/23 12:31 98.6 F 66 16 113/69 98 Intake and Output 10/21/23 10/22/23 10/22/23 22:59 06:59 14:59 Other: # Voids 1 Weight 116.12 kg Results 10/21/23 16:18 10/21/23 16:18 Cardiac Enzymes 10/21/23 10/21/23 Range/Units 16:18 16:18 AST 24 (17-59) U/L Troponin I <0.012 (0.000-0.034) ng/mL Coagulation 10/21/23 Range/Units 16:18 PT 12.6 H (10.0-12.5) sec APTT 26.8 (22.0-30.0) sec CBC 10/21/23 Range/Units 16:18 WBC 10.3 (3.8-10.6) k/uL RBC 3.72 L (4.30-5.90) m/uL Hgb 11.1 L (13.0-17.5) gm/dL Hct 33.9 L (39.0-53.0) % Plt Count 300 (150-450) k/uL Comprehensive Metabolic Panel 10/21/23 Range/Units 16:18 Sodium 138 (137-145) mmol/L Potassium 3.6 (3.5-5.1) mmol/L Chloride 102 (98-107) mmol/L Carbon Dioxide 28 (22-30) mmol/L BUN 20 (9-20) mg/dL Creatinine 1.02 (0.66-1.25) mg/dL Glucose 102 H (74-99) mg/dL Calcium 9.0 (8.4-10.2) mg/dL AST 24 (17-59) U/L ALT 15 (4-49) U/L Alkaline Phosphatase 85 (38-126) U/L Total Protein 6.2 L (6.3-8.2) g/dL Albumin 3.8 (3.5-5.0) g/dL Current Medications Generic Name Dose Route Start Last Admin Trade Name Freq PRN Reason Stop Dose Admin Acetaminophen 650 mg 10/21/23 21:47 Acetaminophen Tab 325 Mg Tab PO Q4HR PRN Mild to Moderate Pain (1 - 6) Albuterol Sulfate 1.25 mg 10/21/23 21:47 Albuterol Nebulized 1.25 Mg/3 Ml INHALATION RT-Q6H PRN Shortness Of Breath Albuterol/Ipratropium 3 ml 10/22/23 08:00 Ipratropium-Albuterol 3 Ml Neb INHALATION RT-QID [facility] Allopurinol 300 mg 10/22/23 09:00 Allopurinol 300 Mg Tab PO DAILY [facility] Benzonatate 200 mg 10/21/23 22:00 10/21/23 22:57 Benzonatate 100 Mg Cap PO 200 mg TID XIMENA Administration Budesonide/Formoterol Fumarate 2 puff 10/22/23 08:00 Symbicort 80-4.5 Mcg Inhaler INHALATION RT-BID [facility] Clopidogrel Bisulfate 75 mg 10/22/23 09:00 Clopidogrel 75 Mg Tab PO DAILY [facility] Colchicine 0.6 mg 10/22/23 09:00 Colchicine 0.6 Mg Each PO DAILY PRN GOUT Furosemide 40 mg 10/21/23 21:45 10/21/23 22:57 Furosemide 10 Mg/Ml 4 Ml Vial IV 40 mg Q12H XIMENA Administration Furosemide 40 mg 10/22/23 09:00 Furosemide 40 Mg Tab PO DAILY [facility] Guaifenesin 600 mg 10/22/23 09:00 Guaifenesin 600 Mg Tablet.Er PO Q12HR [facility] Isosorbide Mononitrate 30 mg 10/22/23 09:00 Isosorbide Mononitrate Er 30 Mg Tab.Er.24h PO DAILY [facility] Lactulose 20 gm 10/22/23 00:00 Lactulose 20 Gm/30 Ml Cup PO Q8HR PRN Constipation Lisinopril 10 mg 10/22/23 09:00 Lisinopril 10 Mg Tab PO DAILY [facility] Metoprolol Tartrate 50 mg 10/22/23 09:00 Metoprolol Tartrate 50 Mg Tab PO BID [facility] Multivitamins/Minerals 1 each 10/22/23 09:00 Vit A,C & C-Byzthi-Mievujwp 1 Each Tab PO DAILY [facility] Pantoprazole Sodium 40 mg 10/22/23 21:00 Pantoprazole 40 Mg Tablet PO HS [facility] Ranolazine 500 mg 10/22/23 09:00 Ranolazine 500 Mg Tab.Er.12h PO BID [facility] Sodium Chloride 2 spray 10/22/23 09:00 Sodium Chloride 0.65% Nasal [place] 44 Ml Btl NASAL QID PRN Dry Nasal Passages Intake and Output 10/21/23 10/22/23 10/22/23 22:59 06:59 14:59 Other: # Voids 1 Weight 116.12 kg 10/21/23 16:18 10/21/23 16:18
[2023-10-22] MEDS: VIT A,C & E-LUTEIN-MINERALS 1 EACH TAB PO SCH (11:16)
--- NOTE | 2023-10-22 12:39 | P.HPIM ---
History of Present Illness Patient is a 83-year-old male with known history of permanent atrial fibrillation, coronary artery disease came in with complaints of shortness of breath. Patient does have history of congestive heart failure, chronic diastolic function had a normal ejection fraction in the past. Patient does have significant bilateral pedal edema although he is only mildly elevated to 2400. Patient is complaining of some shortness of breath of the breathing treatment patient does have right pleural effusion patient had a lobectomy in the past. Patient had a 9 cm pleural effusion on the ultrasound of the chest. Patient does have history of coronary artery disease. REVIEW OF SYSTEMS: CONSTITUTIONAL: No fever, no malaise, no fatigue. HEENT: No recent visual problems or hearing problems. Denied any sore throat. CARDIOVASCULAR: No chest pain, no palpitations, no syncope. PULMONARY: no hemoptysis. GASTROINTESTINAL: No diarrhea, no nausea, no vomiting, no abdominal pain. NEUROLOGICAL: No headaches, no weakness, no numbness. HEMATOLOGICAL: Denies any bleeding or petechiae. GENITOURINARY: Denies any burning micturition, frequency, or urgency. MUSCULOSKELETAL/RHEUMATOLOGICAL: Denies any joint pain, swelling, or any muscle pain. ENDOCRINE: Denies any polyuria or polydipsia. The rest of the 14-point review of systems is negative. PHYSICAL EXAMINATION: GENERAL: The patient is alert and oriented x3, not in any acute distress. Well developed, well nourished. HEENT: Pupils are round and equally reacting to light. EOMI. No scleral icterus. No conjunctival pallor. Normocephalic, atraumatic. No pharyngeal erythema. No thyromegaly. CARDIOVASCULAR: S1 and S2 present. No murmurs, rubs, or gallops. PULMONARY: Chest is clear to auscultation, no wheezing or crackles. ABDOMEN: Soft, nontender, nondistended, normoactive bowel sounds. No palpable organomegaly. MUSCULOSKELETAL: No joint swelling or deformity. EXTREMITIES: No cyanosis, clubbing, significant bilateral lower extremity edema pitting 2+ extending up to bilateral knees NEUROLOGICAL: Gross neurological examination did not reveal any focal deficits. SKIN: No rashes. Assessment and plan -There is heart failure chronic diastolic function with acute exacerbation patient will be continued on IV Lasix monitoring electrolytes and kidney function -Mild hypokalemia patient potassium is expected drop again tomorrow we will replace with potassium as an as-needed basis -Permanent atrial fibrillation patient is still in A-fib and has a Watchman device not on any anticoagulation -Right-sided pleural effusion secondary to congestive heart failure expected to improve with Lasix -Coronary artery disease with stents in the past -Hypertension -Hyperlipidemia -Peripheral artery disease Patient is on colchicine at home not sure why he is on this medication but will be continued as there is no contraindication at this time for text DVT prophylaxis: Lovenox subcutaneous Past Medical History Past Medical History: Atrial Fibrillation, Coronary Artery Disease (CAD), Cancer, Eye Disorder, GI Bleed, Hyperlipidemia, Hypertension, Pneumonia, Skin Disorder, Sleep Apnea/CPAP/BIPAP, Vascular Disorder Additional Past Medical History / Comment(s): dx of lung CA Aug 2023, pneumonia Sep 2023, recent dx hemoptysis-post bronchoscopy- Sep 2023, pt states he is still coughing up blood but "It's a lot less.", back pain-increased pain with walking,Vertigo, hiatal hernia, gout, eczema, bleeds easily, uses cpap, history of prostate cancer, cataract lt eye, "I have circulation issues with my legs." "My yarn inspector said we were going to deal with my lungs first before worrying about my legs.", pt reports swelling to bilat legs due to "I injured them falling off a ladder and my legs got stuck in ladder." History of Any Multi-Drug Resistant Organisms: None Reported Past Surgical History: Cholecystectomy, Heart Catheterization With Stent, Ortho pedic Surgery, Prostate Surgery Additional Past Surgical History / Comment(s): Recent Bronchoscopy Aug 2023, Exploratory Abdominal Surgery; ORIF titanium/screws in LT Ankle. REPAIR BICEP TENDON LT ARM. RT CATARACT. STENTS X2. cyst removed from under chin, prostate surgery with 44 radiation txs, Watchman procedure, R lung lower lobectomy 09/28 Past Anesthesia/Blood Transfusion Reactions: Previous Problems w/ Anesthesia Additional Past Anesthesia/Blood Transfusion Reaction / Comment(s): DEVELOPED AFIB AFTER CATARACT SURG 2013. No hx of blood transfusions. Date of Last Stent Placement:: 2013 Past Psychological History: No Psychological Hx Reported Smoking Status: Former smoker Past Alcohol Use History: None Reported Additional Past Alcohol Use History / Comment(s): SMOKED 20 YRS, 1 PPD, QUIT 1979 Past Drug Use History: None Reported - Past Family History Mother Family Medical History: Coronary Artery Disease (CAD), Myocardial Infarction ([place]) Additional Family Medical History / Comment(s): from myocardial infarction at 69 years old Father Family Medical History: Coronary Artery Disease (CAD), Myocardial Infarction ([place]) Additional Family Medical History / Comment(s): from myocardial infarction at 69 years old Medications and Allergies Home Medications Medication Instructions Recorded Confirmed Type Clopidogrel Bisulfate [Plavix] 75 mg PO DAILY 09/03/17 10/21/23 History Nitroglycerin Sl Tabs [Nitrostat] 0.4 mg SL Q5M PRN 09/03/17 10/21/23 History Ranolazine [Ranexa] 500 mg PO BID 09/03/17 10/21/23 History Albuterol Nebulized [Ventolin 1.25 mg INHALATION RT-Q6H PRN 08/30/23 10/21/23 History Nebulized (Accuneb)] Colchicine 0.6 mg PO DAILY PRN 08/30/23 10/21/23 History Mv-Min/Folic/K1/Lycopen/Lutein 1 tab PO DAILY 08/30/23 10/21/23 History [Centrum Silver Men Tablet] Omeprazole 40 mg PO HS 08/30/23 10/21/23 History Tirzepatide [Mounjaro] 10 mg SQ TU 08/30/23 10/21/23 History allopurinoL [Zyloprim] 300 mg PO DAILY 08/30/23 10/21/23 History Fluticasone/Umeclidin/Vilanter 1 puff INHALATION RT-DAILY 09/18/23 10/21/23 History [Trelegy Ellipta 100-62.5-25] Acetaminophen Tab [Tylenol] 650 mg PO Q4HR PRN tab 10/04/23 10/21/23 Rx Benzonatate [Tessalon Perles] 200 mg PO TID #120 cap 10/04/23 10/21/23 Rx Isosorbide Mononitrate ER [Imdur] 30 mg PO DAILY #30 tab 10/04/23 10/21/23 Rx guaiFENesin [Mucinex] 600 mg PO Q12HR #60 tab 10/04/23 10/21/23 Rx lisinopriL [Zestril] 10 mg PO DAILY tab 01/30/24 02/16/24 Rx Lactulose [Cephulac] 20 gm PO Q8HR PRN 90 Days #90 ml 10/07/23 10/21/23 Rx Furosemide [Lasix] 40 mg PO DAILY 90 Days #90 tab 10/10/23 10/21/23 Rx Ipratropium-Albuterol Nebulize 3 ml INHALATION RT-QID 30 Days 10/10/23 10/21/23 Rx [Duoneb 0.5 mg-3 mg/3 ml Soln] #120 each Metoprolol Tartrate [Lopressor] 50 mg PO BID 90 Days #180 tab 10/10/23 10/21/23 Rx Sodium Chloride 0.65% Nasal [Deep 2 spray NASAL QID PRN ml 10/10/23 10/21/23 Rx Sea (Saline)] Allergies Allergy/AdvReac Type Severity Reaction Status Date / Time cortisone [Cortisone] Allergy Swelling Verified 10/21/23 12:35 and itching surgical tape Allergy "Broke Uncoded 09/29/23 06:13 out" "Got infection" Physical Exam Vitals: Vital Signs Temp Pulse Pulse Resp BP BP Pulse Ox 10/22/23 12:04 68 10/22/23 11:51 64 10/22/23 08:35 92 10/22/23 08:19 92 10/22/23 07:00 97.6 F 112 H 18 124/68 95 10/22/23 02:00 85 16 10/22/23 01:08 98.4 F 85 16 140/68 96 10/21/23 23:00 88 20 136/57 96 10/21/23 22:00 150/70 97 10/21/23 21:00 153/78 96 10/21/23 20:51 95 Intake and Output 10/21/23 10/22/23 10/22/23 22:59 06:59 14:59 Other: # Voids 1 Weight 116.12 kg 117 kg Results CBC & Chem 7: 10/21/23 16:18 10/21/23 16:18 Labs: Abnormal Lab Results - Last 24 Hours (Table) 10/21/23 10/21/23 10/21/23 Range/Units 16:18 16:18 16:18 RBC 3.72 L (4.30-5.90) m/uL Hgb 11.1 L (13.0-17.5) gm/dL Hct 33.9 L (39.0-53.0) % RDW 18.1 H (11.5-15.5) % Neutrophils # 8.5 H (1.3-7.7) k/uL Lymphocytes # 0.6 L (1.0-4.8) k/uL PT 12.6 H (10.0-12.5) sec INR 1.2 H (<1.2) Glucose 102 H (74-99) mg/dL Magnesium 1.4 L (1.6-2.3) mg/dL Total Protein 6.2 L (6.3-8.2) g/dL Thrombosis Risk Factor Assmnt - Choose All That Apply Any of the Below Risk Factors Present?: Yes Each Factor Represents 1 point: Obesity (BMI >25), Swollen legs (current) Other Risk Factors: Yes Each Risk Factor Represents 3 Points: Age 75 years or older Other congenital or acquired thrombophilia - If yes, enter type in comment: No Thrombosis Risk Factor Assessment Total Risk Factor Score: 5 Thrombosis Risk Factor Assessment Level: High Risk
[2023-10-22] MEDS: POTASSIUM CHLORIDE ER 20 MEQ TAB.ER PO STA (12:53)
[2023-10-22] MEDS: MAGNESIUM SULFATE-D5W PMX 1 GM in DEXTROSE/WATER 1 100ML.BAG IVPB SCH (12:53)
--- NOTE | 2023-10-22 13:08 | P.CNPUL ---
History of Present Illness Consult date: 10/22/23 Requesting physician: Danielle Padilla Reason for consult: abnormal CXR/CT Chief complaint: Lower extremity edema History of present illness: This is an 83-year-old male patient with a known history of coronary disease with previous stent placement, hyperlipidemia, hypertension, prostate cancer, ur inary retention, atrial fibrillation, GI bleed while on Xarelto, non-small cell lung cancer status post robotic assisted thorascopic right lower lobectomy on 09/29/2023. He presented here yesterday with complaints of increasing lower extremity edema and some dyspnea on exertion. X-ray is revealing a moderate right pleural effusion and cardiomegaly. White count 10.3. Hemoglobin 11.1. Platelets 300,000. Sodium 138. Potassium 3.6. Bicarb 28. BUN 20. Creatinine 1.02. proBNP 2340. Troponin negative x 1. He is seen today in consultation on the regular medical floor. He is sitting up at the bedside. Awake and alert in no acute distress. He denies any worsening shortness of breath, cough or congestion. He does have some 1-2+ lower extremity edema. His echocardiogram revealed preserved left ventricular systolic function with ejection fraction of 50 to 55%. He is maintaining good O2 saturations in the 90s on room air. Currently on Lasix 40 mg IV every 12 hours. Review of Systems REVIEW OF SYSTEMS: CONSTITUTIONAL: Denies any recent significant weight loss or weight gain. EYES: Denies change in vision. EARS, NOSE, MOUTH, THROAT: Denies headaches, denies sore throat. CARDIOVASCULAR: Denies chest pain, palpitations or syncopal episodes. RESPIRATORY: Positive for shortness of breath, no cough, congestion or hemoptysis. GASTROINTESTINAL: Denies change in appetite, denies abdominal pain GENITOURINARY: Denies hematuria, denies infections. MUSKULOSKELETAL: Positive for lower extremity swelling. INTEGUMENTARY: Denies rash, denies eczema. NEUROLOGICAL: Denies recent memory loss, no recent seizure activity. PSYCHIATRIC: Denies anxiety, denies depression. HEMATOLOGIC/LYMPHATIC: Denies anemia, denies enlarged lymph nodes. Past Medical History Past Medical History: Atrial Fibrillation, Coronary Artery Disease (CAD), Cancer, Eye Disorder, GI Bleed, Hyperlipidemia, Hypertension, Pneumonia, Skin Disorder, Sleep Apnea/CPAP/BIPAP, Vascular Disorder Additional Past Medical History / Comment(s): dx of lung CA Aug 2023, pneumonia Sep 2023, recent dx hemoptysis-post bronchoscopy- Sep 2023, pt states he is still coughing up blood but "It's a lot less.", back pain-increased pain with walking,Vertigo, hiatal hernia, gout, eczema, bleeds easily, uses cpap, history of prostate cancer, cataract lt eye, "I have circulation issues with my legs." "My supply technician said we were going to deal with my lungs first before worrying about my legs.", pt reports swelling to bilat legs due to "I injured them falling off a ladder and my legs got stuck in ladder." History of Any Multi-Drug Resistant Organisms: None Reported Past Surgical History: Cholecystectomy, Heart Catheterization With Stent, Orthopedic Surgery, Prostate Surgery Additional Past Surgical History / Comment(s): Recent Bronchoscopy Aug 2023, Exploratory Abdominal Surgery; ORIF titanium/screws in LT Ankle. REPAIR BICEP TENDON LT ARM. RT CATARACT. STENTS X2. cyst removed from under chin, prostate surgery with 44 radiation txs, Watchman procedure, R lung lower lobectomy 09/28 Past Anesthesia/Blood Transfusion Reactions: Previous Problems w/ Anesthesia Additional Past Anesthesia/Blood Transfusion Reaction / Comment(s): DEVELOPED AFIB AFTER CATARACT SURG 2013. No hx of blood transfusions. Date of Last Stent Placement:: 2013 Past Psychological History: No Psychological Hx Reported Smoking Status: Former smoker Past Alcohol Use History: None Reported Additional Past Alcohol Use History / Comment(s): SMOKED 20 YRS, 1 PPD, QUIT 1979 Past Drug Use History: None Reported - Past Family History Mother Family Medical History: Coronary Artery Disease (CAD), Myocardial Infarction (LA) Additional Family Medical History / Comment(s): from myocardial infarction at 69 years old Father Family Medical History: Coronary Artery Disease (CAD), Myocardial Infarction (LA) Additional Family Medical History / Comment(s): from myocardial infarction at 69 years old Medications and Allergies Home Medications Medication Instructions Recorded Confirmed Type Clopidogrel Bisulfate [Plavix] 75 mg PO DAILY 09/03/17 10/21/23 History Nitroglycerin Sl Tabs [Nitrostat] 0.4 mg SL Q5M PRN 09/03/17 10/21/23 History Ranolazine [Ranexa] 500 mg PO BID 09/03/17 10/21/23 History Albuterol Nebulized [Ventolin 1.25 mg INHALATION RT-Q6H PRN 08/30/23 10/21/23 History Nebulized (Accuneb)] Colchicine 0.6 mg PO DAILY PRN 08/30/23 10/21/23 History Mv-Min/Folic/K1/Lycopen/Lutein 1 tab PO DAILY 08/30/23 10/21/23 History [Centrum Silver Men Tablet] Omeprazole 40 mg PO HS 08/30/23 10/21/23 History Tirzepatide [Mounjaro] 10 mg SQ TU 08/30/23 10/21/23 History allopurinoL [Zyloprim] 300 mg PO DAILY 08/30/23 10/21/23 History Fluticasone/Umeclidin/Vilanter 1 puff INHALATION RT-DAILY 09/18/23 10/21/23 History [Trelegy Ellipta 100-62.5-25] Acetaminophen Tab [Tylenol] 650 mg PO Q4HR PRN tab 10/04/23 10/21/23 Rx Benzonatate [Tessalon Perles] 200 mg PO TID #120 cap 10/04/23 10/21/23 Rx Isosorbide Mononitrate ER [Imdur] 30 mg PO DAILY #30 tab 10/04/23 10/21/23 Rx guaiFENesin [Mucinex] 600 mg PO Q12HR #60 tab 10/04/23 10/21/23 Rx lisinopriL [Zestril] 10 mg PO DAILY tab 10/04/23 10/21/23 Rx Lactulose [Cephulac] 20 gm PO Q8HR PRN 90 Days #90 ml 10/07/23 10/21/23 Rx Furosemide [Lasix] 40 mg PO DAILY 90 Days #90 tab 10/10/23 10/21/23 Rx Ipratropium-Albuterol Nebulize 3 ml INHALATION RT-QID 30 Days 10/10/23 10/21/23 Rx [Duoneb 0.5 mg-3 mg/3 ml Soln] #120 each Metoprolol Tartrate [Lopressor] 50 mg PO BID 90 Days #180 tab 10/10/23 10/21/23 Rx Sodium Chloride 0.65% Nasal [Deep 2 spray NASAL QID PRN ml 10/10/23 10/21/23 Rx Sea (Saline)] Allergies Allergy/AdvReac Type Severity Reaction Status Date / Time cortisone [Cortisone] Allergy Swelling Verified 10/21/23 12:35 and itching surgical tape Allergy "Broke Uncoded 09/29/23 06:13 out" "Got infection" Physical Exam Vitals: Vital Signs Temp Pulse Pulse Resp BP BP Pulse Ox 10/22/23 12:04 68 10/22/23 11:51 64 10/22/23 08:35 92 10/22/23 08:19 92 10/22/23 07:00 97.6 F 112 H 18 124/68 95 10/22/23 02:00 85 16 10/22/23 01:08 98.4 F 85 16 140/68 96 10/21/23 23:00 88 20 136/57 96 10/21/23 22:00 150/70 97 10/21/23 21:00 153/78 96 10/21/23 20:51 95 Intake and Output 10/21/23 10/22/23 10/22/23 22:59 06:59 14:59 Other: # Voids 1 Weight 116.12 kg 117 kg GENERAL EXAM: Alert, pleasant 83-year-old male, on room air, fairly comfortable in no apparent distress. HEAD: Normocephalic. EYES: Normal reaction of pupils, equal size. NOSE: Clear with pink turbinates. THROAT: No erythema or exudates. NECK: No masses, no JVD. CHEST: No chest wall deformity. LUNGS: Equal air entry with crackles in the right lung base. CVS: S1 and S2 normal with no audible murmur, regular rhythm. ABDOMEN: No hepatosplenomegaly, normal bowel sounds, no guarding or rigidity. SPINE: No scoliosis or deformity SKIN: No rashes CENTRAL NERVOUS SYSTEM: No focal deficits, tone is normal in all 4 extremities. EXTREMITIES: There is 1-2+ peripheral edema. No clubbing, no cyanosis. Peripheral pulses are intact. Results - Laboratory Findings CBC and BMP: 10/21/23 16:18 10/21/23 16:18 PT/INR, D-dimer PT 12.6 sec (10.0-12.5) H 10/21/23 16:18 INR 1.2 (<1.2) H 10/21/23 16:18 Abnormal lab findings: Abnormal Labs 10/21/23 10/21/23 10/21/23 16:18 16:18 16:18 RBC 3.72 L Hgb 11.1 L Hct 33.9 L RDW 18.1 H Neutrophils # 8.5 H Lymphocytes # 0.6 L PT 12.6 H INR 1.2 H Glucose 102 H Magnesium 1.4 L Total Protein 6.2 L - Diagnostic Findings Chest x-ray: image reviewed Assessment and Plan Assessment: Acute exacerbation of diastolic congestive heart failure with lower extremity edema Right pleural effusion with septations in a patient with recent right lower lobectomy Lung cancer status post right lower lobectomy in September 2023 Atrial fibrillation Hyperlipidemia Hypertension Coronary disease with previous stent placement Plan: The patient was seen and evaluated Chest x-ray, labs and medications reviewed Ultrasound of the right chest was obtained There is some small effusion but with lung tissue and septation No plans for thoracentesis Stable and on room air Continue diuretics We will continue to follow and make further recommendations based on his clinical status I have personally seen and examined the patient, performed the documentation and the assessment and plan as written. Number of minutes spent on the visit: 20.
[2023-10-22 14:15] VITALS: BMI 31.4
--- NOTE | 2023-10-22 14:30 | CA ---
Transthoracic Echo Report Name: Den Bull Age: 83 Gender: M : 1940 Exam Date: 10/22/2023 09:33 Exam Location: [facility] Ht (in): 76 Wt (lb): 256 Ordering Physician: Cierra Lopez Attending/Referring Phys: [id number], John Band Saw Runner Procedure CPT: Indications: LV function, CHF Cardiac Hx: Technical Quality: Technically difficult study Contrast 1: Total Dose (mL): Contrast 2: Total Dose (mL): MEASUREMENTS (Male / Female) Normal Values 2D ECHO LV Diastolic Diameter PLAX 4.3 cm 4.2 - 5.9 / 3.9 - 5.3 cm IVS Diastolic Thickness 1.4 cm 0.6 - 1.0 / 0.6 - 0.9 cm LVPW Diastolic Thickness 1.3 cm 0.6 - 1.0 / 0.6 - 0.9 cm LV Relative Wall Thickness 0.6 RV Internal Dim ED PLAX 3.7 cm LV Diastolic Volume MOD BP 75.8 cm??? 67 - 155 / 56 - 104 cm??? LV Systolic Volume MOD BP 18.5 cm??? 22 - 58 / 19 - 49 cm??? LV Ejection Fraction MOD BP 75.6 % >= 55 % LV Cardiac Index MOD BP 1930.7 cm???/min???m??? LV Diastolic Volume MOD 4C 58.9 cm??? LV Systolic Volume MOD 4C 13.8 cm??? LV Ejection Fraction MOD 4C 76.5 % LV Cardiac Index MOD 4C 1519.6 cm???/min???m??? LV Diastolic Length 4C 7.2 cm LV Systolic Length 4C 4.8 cm LV Diastolic Volume MOD 2C 89.3 cm??? LV Systolic Volume MOD 2C 20.6 cm??? LV Ejection Fraction MOD 2C 77.0 % LV Cardiac Index MOD 2C 2317.0 cm???/min???m??? LV Diastolic Length 2C 6.4 cm LV Systolic Length 2C 6.0 cm LA Volume 120.8 cm??? 18 - 58 / 22 - 52 cm??? LA Volume Index 47.9 cm???/m??? 16 - 28 cm???/m??? DOPPLER TR Peak Velocity 362.3 cm/s TR Peak Gradient 52.5 mmHg Right Ventricular Systolic Press 66.3 mmHg PI Peak Gradient 18.8 mmHg FINDINGS Left Ventricle Left ventricular ejection fraction is estimated at 67-70 %. Mildly increased septal wall thickness. Right Ventricle Mild right ventricular dilatation. Severe pulmonary hypertension. Right ventricular systolic pressure estimated at 66 mm hg. Right Atrium Severe right atrial dilatation. Left Atrium Severely increased left atrial volume. Mildly increased left atrial area. Mitral Valve Mitral valve thickened. Trace to mild mitral regurgitation. Aortic Valve Trileaflet aortic valve. Thickened aortic valve without stenosis. Tricuspid Valve Structurally normal tricuspid valve. Mild tricuspid regurgitation. Pulmonic Valve Structurally normal pulmonic valve. Moderate pulmonic regurgitation. Pericardium No pericardial effusion. Aorta Normal size aortic root and proximal ascending aorta. CONCLUSIONS Normal LV systolic function Severe pulmonary hypertension Previewed by: Dr. Garett Espana MD (Electronically Signed) Final Date: 22 October 2023 14:29
[2023-10-22] MEDS: PANTOPRAZOLE 40 MG TABLET PO SCH (21:13)
[2023-10-23 08:15] LABS: African American GFR (CKD) 77 (>60 ml/min/1.73 sqM); Anion Gap 5 mmol/L; Blood Urea Nitrogen 23 mg/dL (9-20); Calcium 9.3 mg/dL (8.4-10.2); Carbon Dioxide 33 mmol/L (22-30); Chloride 101 mmol/L (98-107); Glucose 113 mg/dL (74-99); Non-African American GFR(CKD) 66 (>60 ml/min/1.73 sqM); Sodium 139 mmol/L (137-145)
--- NOTE | 2023-10-23 09:17 | P.PN ---
Subjective HISTORY OF PRESENT ILLNESS: This is a 83 year old male with a past medical history significant for permanent atrial fibrillation, cardioversion, coronary artery disease with previous stenting, hypertension, hyperlipidemia, and lung cancer with recent right lower lobe resection. Patient follows with Dr. Kuhn. We have been asked to see the patient in consultation for congestive heart failure. Patient examined at the bedside. Patient underwent right lower lobectomy on September 29, 2023. The patient states he is supposed to follow-up with his oncologist next week to determine the next course of action but he does not think he will have to undergo chemo or radiation. Patient states he has been feeling short of breath since having his lobectomy. He reports increased lower extremity edema. He denies any chest pain or pressure. Patient was found to be in acute CHF and was started on IV Lasix. DIAGNOSTICS: - EKG reveals atrial fibrillation with controlled ventricular rate - Chest xray moderate right pleural effusion. Cardiomegaly. - Laboratory data: WBC 10.3. Hemoglobin 11.1. Platelet count 300. Sodium 138. Potassium 3.6. BUN 20. Creatinine 1.02. Troponin negative x 1. proBNP 2340. - Current home cardiac medications include lisinopril 10 mg daily, Ranexa 500 mg twice a day, Imdur 30 mg daily, Lasix 40 mg daily, Plavix 75 mg daily. - Most recent echocardiogram obtained on 10/08/2023 revealed ejection fraction 50 to 55%, moderate to severe pulmonary hypertension, mild mitral regurgitation, and moderate tricuspid regurgitation 10/23/2023 Patient examined this morning. He is sitting up in the chair with his legs elevated. Patient currently denies any chest pain or pressure. He denies any shortness of breath at rest but does report shortness of breath with exertion walking to the bathroom. He continues to have significant lower extremity edema. He remains on IV Lasix 40 mg every 12 hours. Creatinine remained stable today at 1.04. Patient has not had any accurate intake and output documented. Echocardiogram completed revealing preserved LV systolic function with severe pulmonary hypertension PHYSICAL EXAM: VITAL SIGNS: Reviewed. GENERAL: Well-developed in no acute distress. HEENT: Head is normocephalic. Pupils are equal, round. Sclerae anicteric. Mucous membranes of the mouth are moist. Neck supple. No JVD or thyromegaly LUNGS: Respirations even and unlabored. Lungs essentially clear to auscultation bilaterally, diminished to right lower lobe. HEART: Irregular rate and rhythm. S1 and S2 heard. ABDOMEN: Soft. Nondistended. Nontender. EXTREMITIES: Normal range of motion. No clubbing or cyanosis. Peripheral pulses intact. 3+ bilateral lower extremity edema, worse at the ankles NEUROLOGIC: Awake and alert. Oriented x 3. ASSESSMENT: Shortness of breath Acute on chronic heart failure with preserved EF, 50 to 55%, now 67 to 70% Recent right lower lobe lobectomy, September 29, 2023 Moderate right-sided pleural effusion History of Watchman device History of cardioversion x 1 Coronary artery disease with previous stenting, details unknown Hypertension Hyperlipidemia PLAN: Continue IV Lasix 40 mg every 12 hours Continue additional home cardiac medications Continue to monitor kidney function Discussed with nursing to obtain accurate intake and output with proper documentation Further recommendations pending patient course Nurse practitioner note has been reviewed by physician. Signing provider agrees with the documented findings, assessment, and plan of care documented by PRODUCTION BORING MACHINE OPERATOR as a scribe. Objective - Vital Signs Vital signs: Vital Signs Temp 97.9 F 10/23/23 07:00 Pulse 64 10/23/23 07:00 Resp 18 10/23/23 07:00 BP 127/64 10/23/23 07:00 Pulse Ox 95 10/23/23 07:00 FiO2 Intake & Output 10/22/23 10/23/23 10/23/23 18:59 06:59 18:59 Weight 117 kg 115.9 kg Other: # Voids 1 - Labs CBC & Chem 7: 10/21/23 16:18 10/23/23 07:14 Labs: Abnormal Lab Results - Last 24 Hours (Table) 10/23/23 Range/Units 07:14 Carbon Dioxide 33 H (22-30) mmol/L BUN 23 H (9-20) mg/dL Glucose 113 H (74-99) mg/dL
--- NOTE | 2023-10-23 13:06 | P.PN ---
Subjective Progress Note Date: 10/23/23 This is an 83-year-old male patient with a known history of coronary disease with previous stent placement, hyperlipidemia, hypertension, prostate cancer, urinary retention, atrial fibrillation, GI bleed while on Xarelto, non-small cell lung cancer status post robotic assisted thorascopic right lower lobectomy on 09/29/2023. He presented here yesterday with complaints of increasing lower extremity edema and some dyspnea on exertion. X-ray is revealing a moderate right pleural effusion and cardiomegaly. White count 10.3. Hemoglobin 11.1. Platelets 300,000. Sodium 138. Potassium 3.6. Bicarb 28. BUN 20. Creatinine 1.02. proBNP 2340. Troponin negative x 1. He is seen today in consultation on the regular medical floor. He is sitting up at the bedside. Awake and alert in no acute distress. He denies any worsening shortness of breath, cough or congestion. He does have some 1-2+ lower extremity edema. His echocardiogram revealed preserved left ventricular systolic function with ejection fraction of 50 to 55%. He is maintaining good O2 saturations in the 90s on room air. Currently on Lasix 40 mg IV every 12 hours. The patient was seen and evaluated today October 23, 2023 in follow-up on the regular medical floor. He is currently sitting up in a chair. Awake and alert in no acute distress. Breathing easier today compared to yesterday. He is maintaining good O2 saturations in the 90s on room air. Ultrasound of the right chest did reveal a 9.0 cm pocket however there was septation and lung tissue noted. No plans for thoracentesis. He is continued on IV diuretics. Sodium 139. Potassium 4.0. Bicarb 33. BUN 23. Creatinine 1.04. Glucose 113. Objective - Vital Signs Vital signs: Vital Signs Temp 97.9 F 10/23/23 07:00 Pulse 64 10/23/23 07:00 Resp 18 10/23/23 07:00 BP 127/64 10/23/23 07:00 Pulse Ox 95 10/23/23 07:00 FiO2 Intake & Output 10/22/23 10/23/23 10/23/23 18:59 06:59 18:59 Intake Total 618 Balance 618 Weight 117 kg 115.9 kg Intake: Oral 618 Other: # Voids 1 200 - Exam GENERAL EXAM: Alert, 83-year-old male, on room air, sitting up in a chair, comfortable in no apparent distress. HEAD: Normocephalic. EYES: Normal reaction of pupils, equal size. NOSE: Clear with pink turbinates. THROAT: No erythema or exudates. NECK: No masses, no JVD. CHEST: No chest wall deformity. LUNGS: Equal air entry with crackles in the right lung base. CVS: S1 and S2 normal with no audible murmur, regular rhythm. ABDOMEN: No hepatosplenomegaly, normal bowel sounds, no guarding or rigidity. SPINE: No scoliosis or deformity SKIN: No rashes CENTRAL NERVOUS SYSTEM: No focal deficits, tone is normal in all 4 extremities. EXTREMITIES: There is 1-2+ peripheral edema. No clubbing, no cyanosis. Katherine pheral pulses are intact. - Labs CBC & Chem 7: 10/21/23 16:18 10/23/23 07:14 Labs: Abnormal Lab Results - Last 24 Hours (Table) 10/23/23 Range/Units 07:14 Carbon Dioxide 33 H (22-30) mmol/L BUN 23 H (9-20) mg/dL Glucose 113 H (74-99) mg/dL Assessment and Plan Assessment: Acute exacerbation of diastolic congestive heart failure with lower extremity edema Right pleural effusion with septations in a patient with recent right lower lobectomy Lung cancer status post right lower lobectomy in September 2023 Atrial fibrillation Hyperlipidemia Hypertension Coronary disease with previous stent placement Plan: The patient was seen and evaluated Labs and medications reviewed Stable and on room air Continue diuretics We will continue to follow I have personally seen and examined the patient, performed the documentation and the assessment and plan as written. Number of minutes spent on the visit: 10.
[2023-10-23] MEDS ORDERED: Magnesium Replacement Protocol 1 EACH MISC MISCELLANE PRN (14:43)
--- NOTE | 2023-10-23 14:44 | P.PN ---
Subjective Progress Note Date: 10/23/23 Patient is a 83-year-old male with known history of permanent atrial fibrillation, coronary artery disease came in with complaints of shortness of breath. Patient does have history of congestive heart failure, chronic diastolic function had a normal ejection fraction in the past. Patient does have significant bilateral pedal edema although he is only mildly elevated to 2400. Patient is complaining of some shortness of breath of the breathing treatment patient does have right pleural effusion patient had a lobectomy in the past. Patient had a 9 cm pleural effusion on the ultrasound of the chest. Patient does have history of coronary artery disease. 10/23/2023 Patient is evaluated on the medical floor. Denying shortness of breath today, he does continue with significant pedal and lower extremity edema. He is agreeable to compression with either stockings or LOLLY wrap. Cardiology following. He will be continued on IV lasix Q12 and needing strict intake and output monitoring. Discussed with patient in extent the importance of monitoring sodium intake patient is agreeable. His echocardiogram comes back with normal LV systolic function with moderate pulmonary regurgitation and severe pulmonary hypertension. Review of Systems Constitutional: Denied any fatigue denied any fever. Cardio vascular: denied any chest pain, palpitations Gastrointestinal: denied any nausea, vomiting, diarrhea Pulmonary: Denied any shortness of breath cough Neurologic denied any new focal deficits All inpatient medications were reviewed and appropriate changes in these medications as dictated in the interval history and assessment and plan. PHYSICAL EXAMINATION: GENERAL: The patient is alert and oriented x3, not in any acute distress. Well developed, well nourished. HEENT: Pupils are round and equally reacting to light. EOMI. No scleral icterus. No conjunctival pallor. Normocephalic, atraumatic. No pharyngeal erythema. No thyromegaly. CARDIOVASCULAR: S1 and S2 present. No murmurs, rubs, or gallops. PULMONARY: Chest is clear to auscultation, no wheezing or crackles. ABDOMEN: Soft, nontender, nondistended, normoactive bowel sounds. No palpable organomegaly. MUSCULOSKELETAL: No joint swelling or deformity. EXTREMITIES: No cyanosis, clubbing, significant bilateral lower extremity edema pitting 2+ extending up to bilateral knees NEUROLOGICAL: Gross neurological examination did not reveal any focal deficits. SKIN: No rashes. Assessment and plan -There is heart failure chronic diastolic function with acute exacerbation patient will be continued on IV Lasix monitoring electrolytes and kidney function -Mild hypokalemia improved after supplementation continue monitoring potassium daniel mejia with AM labs. -Permanent atrial fibrillation patient is still in A-fib and has a Watchman device not on any anticoagulation -Right-sided pleural effusion secondary to congestive heart failure expected to improve with Lasix -Coronary artery disease with stents in the past -Hypertension -Hyperlipidemia -Peripheral artery disease Patient is on colchicine at home not sure why he is on this medication but will be continued as there is no contraindication at this time for text DVT prophylaxis: Lovenox subcutaneous The impression and plan of care has been dictated by Nurse Itzel Hoffmann titioner as directed. Dr. Jaime MD I have performed a history and physical examination and medical decision making of this patient, discussed the same with the dictator, and agree with the dictators assessment and plan as written, documented as a scribe. Based on total visit time, I have performed more than 50% of this visit. Objective - Vital Signs Vital signs: Vital Signs Temp 97.9 F 10/23/23 07:00 Pulse 64 10/23/23 07:00 Resp 18 10/23/23 07:00 BP 127/64 10/23/23 07:00 Pulse Ox 95 10/23/23 07:00 FiO2 Intake & Output 10/22/23 10/23/23 10/23/23 18:59 06:59 18:59 Weight 117 kg 115.9 kg Other: # Voids 1 - Labs CBC & Chem 7: 10/21/23 16:18 10/23/23 07:14 Labs: Abnormal Lab Results - Last 24 Hours (Table) 10/23/23 Range/Units 07:14 Carbon Dioxide 33 H (22-30) mmol/L BUN 23 H (9-20) mg/dL Glucose 113 H (74-99) mg/dL Assessment and Plan Time with Patient: Less than 30
[2023-10-23] MEDS: MAGNESIUM SULFATE-D5W PMX 1 GM in DEXTROSE/WATER 1 100ML.BAG IVPB ONE (17:00)
[2023-10-24] MEDS: SPIRONOLACTONE 25 MG TAB PO SCH (09:04)
[2023-10-24] MEDS: DAPAGLIFLOZIN PROPANEDIOL 10 MG TABLET PO SCH (09:04)
--- NOTE | 2023-10-24 10:24 | P.PN ---
Subjective Progress Note Date: 10/24/23 HISTORY OF PRESENT ILLNESS: This is a 83 year old male with a past medical history significant for permanent atrial fibrillation, cardioversion, coronary artery disease with previous stenting, hypertension, hyperlipidemia, and lung cancer with recent right lower lobe resection. Patient follows with Dr. Kuhn. We have been asked to see the patient in consultation for congestive heart failure. Patient examined at the bedside. Patient underwent right lower lobectomy on September 29, 2023. The patient states he is supposed to follow-up with his oncologist next week to determine the next course of action but he does not think he will have to undergo chemo or radiation. Patient states he has been feeling short of breath since having his lobectomy. He reports increased lower extremity edema. He denies any chest pain or pressure. Patient was found to be in acute CHF and was started on IV Lasix. DIAGNOSTICS: - EKG reveals atrial fibrillation with controlled ventricular rate - Chest xray moderate right pleural effusion. Cardiomegaly. - Laboratory data: WBC 10.3. Hemoglobin 11.1. Platelet count 300. Sodium 138. Potassium 3.6. BUN 20. Creatinine 1.02. Troponin negative x 1. proBNP 2340. - Current home cardiac medications include lisinopril 10 mg daily, Ranexa 500 mg twice a day, Imdur 30 mg daily, Lasix 40 mg daily, Plavix 75 mg daily. - Most recent echocardiogram obtained on 10/08/2023 revealed ejection fraction 50 to 55%, moderate to severe pulmonary hypertension, mild mitral regurgitation, and moderate tricuspid regurgitation 10/23/2023 Patient examined this morning. He is sitting up in the chair with his legs elevated. Patient currently denies any chest pain or pressure. He denies any shortness of breath at rest but does report shortness of breath with exertion walking to the bathroom. He continues to have significant lower extremity edema. He remains on IV Lasix 40 mg every 12 hours. Creatinine remained stable today at 1.04. Patient has not had any accurate intake and output documented. Echocardiogram completed revealing preserved LV systolic function with severe pulmonary hypertension 10/24 Patient states that his breathing is little bit better today. He states he has had shortness of breath since his lung surgery in September. He slept a little bit last night. He is on IV Lasix 40 mg every 12 hours. He continues to have lower extremity edema. Weight is down 2 kg, ANA MARIA does not appear to be accurate. Blood pressure 126/68, heart rate 75, pulse ox 96% on room air. No repeat blood work at the time of this dictation. PHYSICAL EXAM: VITAL SIGNS: Reviewed. GENERAL: Well-developed in no acute distress. HEENT: Head is normocephalic. Pupils are equal, round. Sclerae anicteric. Mucous membranes of the mouth are moist. Neck supple. No JVD or thyromegaly LUNGS: Respirations even and unlabored. Lungs essentially clear to auscultation bilaterally, diminished to right lower lobe. HEART: Irregular rate and rhythm. S1 and S2 heard. ABDOMEN: Soft. Nondistended. Nontender. EXTREMITIES: Normal range of motion. No clubbing or cyanosis. Peripheral pulses intact. 2+ bilateral lower extremity edema, worse at the ankles NEUROLOGIC: Awake and alert. Oriented x 3. ASSESSMENT: Shortness of breath Acute on chronic heart failure with preserved EF, 50 to 55%, now 67 to 70% Recent right lower lobe lobectomy, September 29, 2023 Moderate right-sided pleural effusion History of Watchman device History of cardioversion x 1 Coronary artery disease with previous stenting, details unknown Hypertension Hyperlipidemia PLAN: Continue IV Lasix 40 mg every 12 hours for another day Continue additional home cardiac medications Monitor ANA MARIA, daily weights, electrolytes and renal function Add Aldactone 25 mg daily, Farxiga 10 mg daily Further recommendations pending patient course Nurse practitioner note has been reviewed by physician. Signing provider agrees with the documented findings, assessment, and plan of care documented by [employer] as a scribe. Objective - Vital Signs Vital signs: Vital Signs Temp 97.4 F L 10/24/23 03:26 Pulse 73 10/24/23 03:26 Resp 17 10/24/23 03:26 BP 145/76 10/24/23 03:26 Pulse Ox 96 10/24/23 03:26 FiO2 Intake & Output 10/23/23 10/24/23 10/24/23 18:59 06:59 18:59 Intake Total 1118 Output Total 580 Balance 1118 -580 Intake: Oral 1118 Output: Urine 580 Other: # Voids 200 - Labs CBC & Chem 7: 10/21/23 16:18 10/23/23 07:14 Labs: Abnormal Lab Results - Last 24 Hours (Table) 02/18/24 Range/Units 07:14 Carbon Dioxide 33 H (22-30) mmol/L BUN 23 H (9-20) mg/dL Glucose 113 H (74-99) mg/dL
[2023-10-24 11:42] LABS: BUN/Creat Ratio 18.45 Ratio (12.00-20.00); Blood Urea Nitrogen 20.3 mg/dL (9.0-27.0); Calcium 9.6 mg/dL (8.7-10.3); Carbon Dioxide 31.3 mmol/L (21.6-31.8); Chloride 98 mmol/L (96-109); Glucose 133 mg/dL (70-110); Magnesium 1.8 mg/dL (1.5-2.4); Potassium 3.8 mmol/L (3.5-5.5); Sodium 141 mmol/L (135-145)
--- NOTE | 2023-10-24 12:01 | P.PN ---
Subjective Progress Note Date: 10/24/23 This is an 83-year-old male patient with a known history of coronary disease with previous stent placement, hyperlipidemia, hypertension, prostate cancer, urinary retention, atrial fibrillation, GI bleed while on Xarelto, non-small cell lung cancer status post robotic assisted thorascopic right lower lobectomy on 09/29/2023. He presented here yesterday with complaints of increasing lower extremity edema and some dyspnea on exertion. X-ray is revealing a moderate right pleural effusion and cardiomegaly. White count 10.3. Hemoglobin 11.1. Platelets 300,000. Sodium 138. Potassium 3.6. Bicarb 28. BUN 20. Creatinine 1.02. proBNP 2340. Troponin negative x 1. He is seen today in consultation on the regular medical floor. He is sitting up at the bedside. Awake and alert in no acute distress. He denies any worsening shortness of breath, cough or congestion. He does have some 1-2+ lower extremity edema. His echocardiogram revealed preserved left ventricular systolic function with ejection fraction of 50 to 55%. He is maintaining good O2 saturations in the 90s on room air. Currently on Lasix 40 mg IV every 12 hours. The patient was seen and evaluated today October 23, 2023 in follow-up on the regular medical floor. He is currently sitting up in a chair. Awake and alert in no acute distress. Breathing easier today compared to yesterday. He is maintaining good O2 saturations in the 90s on room air. Ultrasound of the right chest did reveal a 9.0 cm pocket however there was septation and lung tissue noted. No plans for thoracentesis. He is continued on IV diuretics. Sodium 139. Potassium 4.0. Bicarb 33. BUN 23. Creatinine 1.04. Glucose 113. The patient is seen today October 24, 2023 in follow-up on the regular medical floor. He is currently resting comfortably in bed. Awake and alert in no acute distress. He is maintaining good O2 saturations in the 90s on room air. Sodium 141. Potassium 3.8. Bicarb 31. BUN 20. Creatinine 1.1. Glucose 133. Con tinued on IV diuretics. Currently in a negative balance. Objective - Vital Signs Vital signs: Vital Signs Temp 97.5 F L 10/24/23 07:00 Pulse 75 10/24/23 07:00 Resp 17 10/24/23 07:00 BP 126/68 10/24/23 07:00 Pulse Ox 96 10/24/23 07:00 FiO2 Intake & Output 10/23/23 10/24/23 10/24/23 18:59 06:59 18:59 Intake Total 1118 118 Output Total 580 700 Balance 1118 -580 -582 Weight 114.396 kg Intake: Oral 1118 118 Output: Urine 580 700 Other: # Voids 200 - Exam GENERAL EXAM: Alert, 83-year-old male, on room air, resting in bed, in no apparent distress. HEAD: Normocephalic. EYES: Normal reaction of pupils, equal size. NOSE: Clear with pink turbinates. THROAT: No erythema or exudates. NECK: No masses, no JVD. CHEST: No chest wall deformity. LUNGS: Equal air entry with crackles in the right lung base. CVS: S1 and S2 normal with no audible murmur, regular rhythm. ABDOMEN: No hepatosplenomegaly, normal bowel sounds, no guarding or rigidity. SPINE: No scoliosis or deformity SKIN: No rashes CENTRAL NERVOUS SYSTEM: No focal deficits, tone is normal in all 4 extremities. EXTREMITIES: There is 1-2+ peripheral edema. No clubbing, no cyanosis. Peripheral pulses are intact. - Labs CBC & Chem 7: 10/21/23 16:18 10/24/23 06:24 Labs: Abnormal Lab Results - Last 24 Hours (Table) 10/24/23 Range/Units 06:24 Glucose 133 H (70-110) mg/dL Assessment and Plan Assessment: Acute exacerbation of diastolic congestive heart failure with lower extremity edema Right pleural effusion with septations in a patient with recent right lower lobectomy Lung cancer status post right lower lobectomy in September 2023 Severe pulmonary hypertension Atrial fibrillation Hyperlipidemia Hypertension Coronary disease with previous stent placement Plan: The patient was seen and evaluated Labs and medications reviewed Stable and on room air Continue diuretics Increase his activity as tolerated Follow-up chest x-ray in a.m. This patient was seen independently by the pulmonary nurse practitioner addressing pulmonary issues I have personally seen and examined the patient, performed the documentation and the assessment and plan as written. Number of minutes spent on the visit: 23.
[2023-10-24] MEDS: LORazepam 0.5 MG TAB PO PRN (17:23)
--- NOTE | 2023-10-24 21:49 | PN ---
PROGRESS NOTE SUBJECTIVE: This is an 83-year-old white male, who had prolonged stay in the hospital for congestive heart failure. He has not been wearing his oxygen at night like he is supposed to. He has been on his breathing treatments. Medicines have been thus finalized. He has been on IV Lasix, was switching him to oral. Sent him home with compression stockings, 20 mm Jobst stockings bilaterally. Lasix 40 b.i.d., Farxiga 10 mg daily, spironolactone 25 mg daily. and other medications. CONDITION: Stable. PROGNOSIS: Guarded. AMBULATE: As tolerated. Prognosis is guarded. Follow up in next 24 to 48 hours in office of Dr. Kojo Viveros. Diet as tolerated. Low-sodium diet. Prognosis guarded. Condition stable. 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 Prognosis guarded. Please see further orders. Prognosis is guarded. Follow up as an outpatient in a day or so. MMODL / IJN: [id number] /
[2023-10-24 21:50] VITALS: PULSE 92; RESP 16; TEMP 97.5
[2023-10-24 22:21] VITALS: BP 165/75
[2023-10-25] MEDS ORDERED: FUROSEMIDE 40 MG TAB PO SCH (09:00)
== END 2023-10-24 21:30 | disposition home or self-care (01) ==
LOC: EC 12:15 → 4SSUR 21:49 → 6NMEDSUR 22:56 → INTOOBSV 10-22 12:39 → OBSVTOIN 10-22 12:39
PROVIDERS: ADMIT Family Medicine; ATTEND Family Medicine
DX: I11.0 Hypertensive heart disease with heart failure (principal); I50.33 Acute on chronic diastolic (congestive) heart failure; I48.21 Permanent atrial fibrillation; E87.6 Hypokalemia; I08.1 Rheumatic disorders of both mitral and tricuspid valves; I27.20 Pulmonary hypertension, unspecified; I25.10 Atherosclerotic heart disease of native coronary artery without angina pectoris; E78.5 Hyperlipidemia, unspecified; I73.9 Peripheral vascular disease, unspecified; I25.2 Old myocardial infarction; Z79.899 Other long term (current) drug therapy; Z79.02 Long term (current) use of antithrombotics/antiplatelets; Z79.51 Long term (current) use of inhaled steroids; Z79.85 Long-term (current) use of injectable non-insulin antidiabetic drugs; Z88.8 Allergy status to other drugs, medicaments and biological substances; Z91.048 Other nonmedicinal substance allergy status; Z90.2 Acquired absence of lung [part of]; Z95.5 Presence of coronary angioplasty implant and graft; Z87.891 Personal history of nicotine dependence; Z85.118 Personal history of other malignant neoplasm of bronchus and lung; Z95.818 Presence of other cardiac implants and grafts
CPT/HCPCS: 96376 ×3; 96365; 96366; 96375; 99285; 36415; 94640 ×2; 93005; 92610; 83880; 80053; 80048 ×2; 83605; 83735 ×3; 84484; 85025; 85610; 85730; 71046; 76604; G0378 ×5; C8929; J1940 ×4; Q9957; J3475 ×2; 93306; 96374

== ENCOUNTER 2023-11-18 15:57 | Emergency (ER) | payer MEDICARE ==
[2023-11-18 16:35] VITALS: RESP 18; TEMP 98.8
[2023-11-18 16:58] LABS: Anisocytosis Slight; Basophils % (A) 0 %; Eosinophils # (A) 0.2 k/uL (0-0.7); Eosinophils % (A) 2 %; HCT 36.7 % (39.0-53.0); HGB 11.6 gm/dL (13.0-17.5); Hypochromasia Slight; Lymphocytes # (A) 0.6 k/uL (1.0-4.8); Lymphocytes % (A) 7 %; MCH 28.7 pg (25.0-35.0); MCHC 31.6 g/dL (31.0-37.0); MCV 90.7 fL (80.0-100.0); Mean Platelet Volume 7.8; Monocytes # (A) 0.5 k/uL (0-1.0); Monocytes % (A) 6 %; Neutrophils # (A) 6.4 k/uL (1.3-7.7); Neutrophils % (A) 82 %; Platelet Count 276 k/uL (150-450); Poikilocytosis Slight; RBC 4.05 m/uL (4.30-5.90); RDW 17.1 % (11.5-15.5); WBC 7.8 k/uL (3.8-10.6)
--- NOTE | 2023-11-18 17:03 | XR ---
EXAMINATION TYPE: XR chest 2V DATE OF EXAM: 11/18/2023 4:55 PM CLINICAL INDICATION:Male, 83 years old with history of Chest Pain; [facility] COMPARISON: Chest radiographs from 10/21/2023. TECHNIQUE: XR chest 2V Frontal and lateral views of the chest. FINDINGS: Lungs/Pleura: Blunting of the right costophrenic angle. There is no evidence of pleural effusion, foc al consolidation, or pneumothorax. Pulmonary vascularity: Unremarkable. Heart/mediastinum: Cardiomediastinal silhouette is enlarged and stable. Musculoskeletal: No acute osseous pathology. Other findings: None IMPRESSION: Small to moderate right pleural effusion
[2023-11-18 17:07] LABS: ALT 16 U/L (4-49); AST 33 U/L (17-59); African American GFR (CKD) >90 (>60 ml/min/1.73 sqM); Albumin 3.9 g/dL (3.5-5.0); Alkaline Phosphatase 75 U/L (38-126); Anion Gap 7 mmol/L; Blood Urea Nitrogen 21 mg/dL (9-20); Calcium 9.3 mg/dL (8.4-10.2); Carbon Dioxide 27 mmol/L (22-30); Chloride 103 mmol/L (98-107); Glucose 107 mg/dL (74-99); Magnesium 1.8 mg/dL (1.6-2.3); Non-African American GFR(CKD) 80 (>60 ml/min/1.73 sqM); Potassium 4.5 mmol/L (3.5-5.1); Sodium 137 mmol/L (137-145); Total Protein 6.5 g/dL (6.3-8.2)
[2023-11-18 17:21] LABS: INR 1.2 (<1.2); Partial Thromboplastin Time 26.5 sec (22.0-30.0); Prothrombin Time 12.5 sec (10.0-12.5)
[2023-11-18] MEDS: HYDROcodone/APAP 10-325MG 1 EACH TAB PO ONE (17:42)
--- NOTE | 2023-11-18 19:37 | ED ---
General Adult HPI - General Chief complaint: Skin/Abscess/Foreign Body Stated complaint: abd pain/Pain right side Time Seen by Provider: 11/18/23 16:05 Source: patient, EMS Mode of arrival: EMS Limitations: no limitations - History of Present Illness Initial comments: 83-year-old male with past medical history of lung cancer who presents emergency department reporting right-sided thoracic pain. States that he was at home today when he had gradual onset of right-sided chest wall pain. States that it is extremely tender to palpate the area as well as raise his right arm. He recently had a lobectomy at this location for lung cancer. States he has not had any postop issues. He denies being short of breath. No fevers. Denies any anterior chest pain denies any numbness, tingling or weakness into his abdomen or lower extremities. No fevers or cough. No other alleviating, precipitating or modifying factors - Related Data Home Medications Medication Instructions Recorded Confirmed Clopidogrel Bisulfate [Plavix] 75 mg PO HS 09/03/17 11/18/23 Nitroglycerin Sl Tabs [Nitrostat] 0.4 mg SL Q5M PRN 09/03/17 11/18/23 Ranolazine [Ranexa] 500 mg PO BID 09/03/17 11/18/23 Colchicine 0.6 mg PO DAILY@1500 08/30/23 11/18/23 Mv-Min/Folic/K1/Lycopen/Lutein 1 tab PO DAILY 08/30/23 11/18/23 [Centrum Silver Men Tablet] allopurinoL [Zyloprim] 300 mg PO DAILY@1500 08/30/23 11/18/23 Isosorbide Mononitrate ER [Imdur] 30 mg PO DAILY@1500 11/18/23 11/18/23 Spironolactone [Aldactone] 25 mg PO DAILY@1500 11/18/23 11/18/23 Previous Rx's Medication Instructions Recorded lisinopriL [Zestril] 10 mg PO DAILY tab 10/04/23 Furosemide [Lasix] 40 mg PO DAILY 90 Days #90 tab 10/10/23 Metoprolol Tartrate [Lopressor] 50 mg PO BID 90 Days #180 tab 10/10/23 HYDROcodone/APAP 7.5-325MG [[place] 1 tab PO Q4HR PRN #18 tab 11/18/23 7.5-325] Lidocaine 5% Patch [Lidoderm] 1 patch TOPICAL DAILY #25 patch 11/18/23 Allergies Allergy/AdvReac Type Severity Reaction Status Date / Time cortisone [Cortisone] Allergy Swelling Verified 11/18/23 18:05 and itching surgical tape Allergy "Broke Uncoded 09/29/23 06:13 out" "Got infection" Review of Systems ROS Statement: Those systems with pertinent positive or pertinent negative responses have been documented in the HPI. ROS Other: All systems not noted in ROS Statement are negative. Past Medical History Past Medical History: Atrial Fibrillation, Coronary Artery Disease (CAD), Cancer, Eye Disorder, GI Bleed, Hyperlipidemia, Hypertension, Pneumonia, Skin Disorder, Sleep Apnea/CPAP/BIPAP, Vascular Disorder Additional Past Medical History / Comment(s): dx of lung CA Aug 2023, pneumonia Sep 2023, recent dx hemoptysis-post bronchoscopy- Sep 2023, pt states he is still coughing up blood but "It's a lot less.", back pain-increased pain with walking,Vertigo, hiatal hernia, gout, eczema, bleeds easily, uses cpap, history of prostate cancer, cataract lt eye, "I have circulation issues with my legs." "My deliverer merchandise said we were going to deal with my lungs first before worrying about my legs.", pt reports swelling to bilat legs due to "I injured them falling off a ladder and my legs got stuck in ladder." History of Any Multi-Drug Resistant Organisms: None Reported Past Surgical History: Cholecystectomy, Heart Catheterization With Stent, Orthopedic Surgery, Prostate Surgery Additional Past Surgical History / Comment(s): Recent Bronchoscopy Aug 2023, Exploratory Abdominal Surgery; ORIF titanium/screws in LT Ankle. REPAIR BICEP TENDON LT ARM. RT CATARACT. STENTS X2. cyst removed from under chin, prostate surgery with 44 radiation txs, Watchman procedure, R lung lower lobectomy 09/28 Past Anesthesia/Blood Transfusion Reactions: Previous Problems w/ Anesthesia Additional Past Anesthesia/Blood Transfusion Reaction / Comment(s): DEVELOPED AFIB AFTER CATARACT SURG 2013. No hx of blood transfusions. Date of Last Stent Placement:: 2013 Past Psychological History: No Psychological Hx Reported Smoking Status: Former smoker Past Alcohol Use History: None Reported Past Drug Use History: None Reported - Past Family History Mother Family Medical History: Coronary Artery Disease (CAD), Myocardial Infarction ([place]) Additional Family Medical History / Comment(s): from myocardial infarction at 69 years old Father Family Medical History: Coronary Artery Disease (CAD), Myocardial Infarction ([place]) Additional Family Medical History / Comment(s): from myocardial infarction at 69 years old General Exam Limitations: no limitations General appearance: alert, in no apparent distress Head exam: Present: atraumatic, normocephalic, normal inspection Eye exam: Present: normal appearance, PERRL, EOMI. Absent: scleral icterus, conjunctival injection, periorbital swelling ENT exam: Present: normal exam, mucous membranes moist Neck exam: Present: normal inspection. Absent: tenderness, meningismus, lymphadenopathy Respiratory exam: Present: normal lung sounds bilaterally, chest wall tenderness (Right lateral aspect as well as right posterior scapula. Pain is worse with movement of the right arm. Patient's incisions are well-healed without redness, dehiscence or drainage). Absent: respiratory distress, wheezes, rales, rhonchi, stridor Cardiovascular Exam: Present: regular rate, normal rhythm, normal heart sounds. Absent: systolic murmur, diastolic murmur, rubs, gallop, clicks GI/Abdominal exam: Present: soft, normal bowel sounds. Absent: distended, tenderness, guarding, rebound, rigid Extremities exam: Present: normal inspection, full ROM, normal capillary refill. Absent: tenderness, pedal edema, joint swelling, calf tenderness Back exam: Present: normal inspection Neurological exam: Present: alert, oriented X3, CN II-XII intact Psychiatric exam: Present: normal affect, normal mood Skin exam: Present: warm, dry, intact, normal color. Absent: rash Course Vital Signs 11/18/23 11/18/23 11/18/23 16:00 19:05 19:50 Temperature 98.8 F Pulse Rate 73 66 75 Respiratory 18 18 18 Rate Blood Pressure 146/103 138/71 145/77 O2 Sat by Pulse 95 98 98 Oximetry Medical Decision Making - Medical Decision Making Was pt. sent in by a medical professional or institution (, PA, PHARMACIST HELPER, urgent care, hospital, or longterm...) When possible be specific @ -No Did you speak to anyone other than the patient for history (EMS, parent, family, police, friend...)? What history was obtained from this source @ -Spoke with EMS for history Did you review nursing and triage notes (agree or disagree)? Why? @ -I reviewed and agree with nursing and triage notes Were old charts reviewed (outside hosp., previous admission, EMS record, old EKG, old radiological studies, urgent care reports/EKG's, longterm records)? Report findings @ -I reviewed patient's discharge health [place] from last hospitalization in September when patient had his lobectomy Differential Diagnosis (chest pain, altered mental status, abdominal pain women, abdominal pain men, vaginal bleeding, weakness, fever, dyspnea, syncope, headache, dizziness, GI bleed, back pain, seizure, CVA, palpatations, mental health, musculoskeletal)? @ -Differential Chest Pain: Stable Angina, Unstable Angina, STEMI, NSTEMI Aortic Dissection, Pneumothorax, Musculoskeletal, Esophageal Spasm GERD, Cholecystitis, Pancreatitis, Zoster, this is not meant to be an all-inclusive list. EKG interpreted by me (3pts min.). @ -Yes and demonstrates A-fib with a rate of 64. QRS 101. QTc of 405. No acute ST segment elevations or depressions X-rays interpreted by me (1pt min.). @ -Yes and demonstrates no acute process. Small right-sided pleural effusion which is stable CT interpreted by me (1pt min.). @ -None done U/S interpreted by me (1pt. min.). @ -None done What testing was considered but not performed or refused? (CT, X-rays, U/S, labs)? Why? @ -None What meds were considered but not given or refused? Why? @ -None Did you discuss the management of the patient with other professionals (professionals i.e. , PA, PHARMACIST HELPER, lab, RT, psych nurse, social media assistant, shovel engineer, teacher, founder and chief executive officer, case management coordinator)? Give summary @ -No Was smoking cessation discussed for >3mins.? @ -No Was critical care preformed (if so, how long)? @ -No Were there social determinants of health that impacted care today? How? (Homelessness, low income, unemployed, alcoholism, drug addiction, transportation, low edu. Level, literacy, decrease access to med. care, snf, rehab)? @ -No Was there de-escalation of care discussed even if they declined (Discuss DNR or withdrawal of care, Hospice)? DNR status @ -No What co-morbidities impacted this encounter? (DM, HTN, Smoking, COPD, CAD, Cancer, CVA, ARF, Chemo, Hep., AIDS, mental health diagnosis, sleep apnea, morbid obesity)? @ -Lung cancer with lobectomy Was patient admitted / discharged? Hospital course, mention meds given and route, prescriptions, significant lab abnormalities, going to OR and other pertinent info. @ -Upon arrival patient was placed into room 27. Thorough history and physical exam was performed. Patient was given a [place]. Laboratory studies and a chest x-ray were performed. Results are reviewed and discussed with the patient. He does have improvement in his pain. Pain appears to be very reproducible upon palpation and movement of the right arm. Consider musculoskeletal strain. Patient does have a pleural effusion however it has not increased since his last evaluation by pulmonology where they did not want to drain it. Patient is denying have any respiratory symptoms. Because of this I do feel that the patient is stable for discharge home. He is eager for this discharge. He will follow-up with his cardiothoracic surgeon and return for any new or worsening symptoms. He does have an upcoming appointment. Patient agreeable to plan was discharged in stable condition Undiagnosed new problem with uncertain prognosis? @ -No Drug Therapy requiring intensive monitoring for toxicity (Heparin, Nitro, Insulin, Cardizem)? @ -No Were any procedures done? @ -No Diagnosis/symptom? @ -Acute right-sided chest wall pain, history of lobectomy Acute, or Chronic, or Acute on Chronic? @ -Acute Uncomplicated (without systemic symptoms) or Complicated (systemic symptoms)? @ -Complicated Side effects of treatment? @ -No Exacerbation, Progression, or Severe Exacerbation? @ -No Poses a threat to life or bodily function? How? (Chest pain, [place], [place], pneumonia, PE, COPD, DKA, ARF, appy, cholecystitis, CVA, Diverticulitis, Homicidal, Suicidal, threat to staff... and all critical care pts) @ -No - Lab Data Result diagrams: 11/18/23 16:47 11/18/23 16:47 Lab Results 11/18/23 11/18/23 11/18/23 Range/Units 16:47 16:47 16:47 WBC 7.8 (3.8-10.6) k/uL RBC 4.05 L (4.30-5.90) m/uL Hgb 11.6 L (13.0-17.5) gm/dL Hct 36.7 L (39.0-53.0) % MCV 90.7 (80.0-100.0) fL MCH 28.7 (25.0-35.0) pg MCHC 31.6 (31.0-37.0) g/dL RDW 17.1 H (11.5-15.5) % Plt Count 276 (150-450) k/uL MPV 7.8 Neutrophils % 82 % Lymphocytes % 7 % Monocytes % 6 % Eosinophils % 2 % Basophils % 0 % Neutrophils # 6.4 (1.3-7.7) k/uL Lymphocytes # 0.6 L (1.0-4.8) k/uL Monocytes # 0.5 (0-1.0) k/uL Eosinophils # 0.2 (0-0.7) k/uL Basophils # 0.0 (0-0.2) k/uL Hypochromasia Slight Poikilocytosis Slight Anisocytosis Slight PT 12.5 (10.0-12.5) sec INR 1.2 H (<1.2) APTT 26.5 (22.0-30.0) sec Sodium 137 (137-145) mmol/L Potassium 4.5 (3.5-5.1) mmol/L Chloride 103 (98-107) mmol/L Carbon Dioxide 27 (22-30) mmol/L Anion Gap 7 mmol/L BUN 21 H (9-20) mg/dL Creatinine 0.86 (0.66-1.25) mg/dL Est GFR (CKD-EPI)AfAm >90 (>60 ml/min/1.73 sqM) Est GFR (CKD-EPI)NonAf 80 (>60 ml/min/1.73 sqM) Glucose 107 H (74-99) mg/dL Calcium 9.3 (8.4-10.2) mg/dL Magnesium 1.8 (1.6-2.3) mg/dL Total Bilirubin 1.0 (0.2-1.3) mg/dL AST 33 (17-59) U/L ALT 16 (4-49) U/L Alkaline Phosphatase 75 (38-126) U/L Troponin I (0.000-0.034) ng/mL Total Protein 6.5 (6.3-8.2) g/dL Albumin 3.9 (3.5-5.0) g/dL 11/18/23 Range/Units 16:47 WBC (3.8-10.6) k/uL RBC (4.30-5.90) m/uL Hgb (13.0-17.5) gm/dL Hct (39.0-53.0) % MCV (80.0-100.0) fL MCH (25.0-35.0) pg MCHC (31.0-37.0) g/dL RDW (11.5-15.5) % Plt Count (150-450) k/uL MPV Neutrophils % % Lymphocytes % % Monocytes % % Eosinophils % % Basophils % % Neutrophils # (1.3-7.7) k/uL Lymphocytes # (1.0-4.8) k/uL Monocytes # (0-1.0) k/uL Eosinophils # (0-0.7) k/uL Basophils # (0-0.2) k/uL Hypochromasia Poikilocytosis Anisocytosis PT (10.0-12.5) sec INR (<1.2) APTT (22.0-30.0) sec Sodium (137-145) mmol/L Potassium (3.5-5.1) mmol/L Chloride (98-107) mmol/L Carbon Dioxide (22-30) mmol/L Anion Gap mmol/L BUN (9-20) mg/dL Creatinine (0.66-1.25) mg/dL Est GFR (CKD-EPI)AfAm (>60 ml/min/1.73 sqM) Est GFR (CKD-EPI)NonAf (>60 ml/min/1.73 sqM) Glucose (74-99) mg/dL Calcium (8.4-10.2) mg/dL Magnesium (1.6-2.3) mg/dL Total Bilirubin (0.2-1.3) mg/dL AST (17-59) U/L ALT (4-49) U/L Alkaline Phosphatase (38-126) U/L Troponin I <0.012 (0.000-0.034) ng/mL Total Protein (6.3-8.2) g/dL Albumin (3.5-5.0) g/dL Disposition Clinical Impression: Right-sided chest wall pain Disposition: HOME SELF-CARE Condition: Stable Instructions (If sedation given, give patient instructions): Chest Wall Pain (ED) Additional Instructions: Please take the pain pills as needed for pain. Place warm compresses to the site. Use the Lidoderm patches. If the prescription is expensive, have the pharmacist direct you to the [id number] patches. Follow-up with Dr. Stanley and return for any new or worsening symptoms Prescriptions: Lidocaine 5% Patch [Lidoderm] 1 patch TOPICAL DAILY #25 patch HYDROcodone/APAP 7.5-325MG [[place] 7.5-325] 1 tab PO Q4HR PRN #18 tab PRN Reason: Pain Is patient prescribed a controlled substance at d/c from ED?: Yes When asked, does pt state using other controlled substances?: No If prescribed controlled substance>3 days was MAPS reviewed?: Prescribed <3 Days If opioid is for acute pain is fill amount 7 days or less?: Yes Referrals: Kojo Viveros MD [Primary Care Provider] - 1-2 days Curtis Stanley MD [STAFF PHYSICIAN] - 1-2 days Time of Disposition: 19:37
[2023-11-18] MEDS: LIDOCAINE 4% PATCH TOPICAL ONE (19:51)
[2023-11-18] MEDS: ACET/COD 300 MG/30 MG STARTER PACK 6 TAB BTL PO STA (19:51)
[2023-11-18 19:55] VITALS: BP 145/77; PULSE 75
== END 2023-11-18 19:57 | disposition home or self-care (01) ==
LOC: EC 15:57
DX: R07.89 Other chest pain (principal); Z87.891 Personal history of nicotine dependence; Z88.8 Allergy status to other drugs, medicaments and biological substances
CPT/HCPCS: 36415; 71046; 80053; 83735; 84484; 85025; 85610; 85730; 93005; 99285

== ENCOUNTER 2023-12-11 20:39 | Emergency (ER) | payer MEDICARE ==
--- NOTE | 2023-12-11 21:31 | ED ---
Abdominal Pain HPI - General Chief Complaint: Abdominal Pain Stated Complaint: Abdominal Pain Time Seen by Provider: 12/11/23 21:03 Source: patient Mode of arrival: ambulatory Limitations: no limitations - History of Present Illness Initial Comments: This patient is an 83-year-old man who presents with a few days of right upper quadrant pain. He notes that it is worse when he is upright, walking or sitting, and is better when he is lying down. He states that it is sharp. There is tenderness in the right upper quadrant. He has not noted a change with food. No nausea or vomiting. Patient states that he did number days ago was having constipation and he believes this was related to use of pain medication. He states that he started taking gummy bear stool softeners and for the past couple of days has had soft stools. No blood or dark tarry stool. No change in urination. MD Complaint: abdominal pain -: days(s) (3) Location: RUQ Radiation: none Migration to: no migration Severity: moderate Quality: sharp Consistency: constant Improves With: other (Supine) Worsens With: other (Being upright) - Related Data Home Medications Medication Instructions Recorded Confirmed Clopidogrel Bisulfate [Plavix] 75 mg PO HS 09/03/17 11/18/23 Nitroglycerin Sl Tabs [Nitrostat] 0.4 mg SL Q5M PRN 09/03/17 11/18/23 Ranolazine [Ranexa] 500 mg PO BID 09/03/17 11/18/23 Colchicine 0.6 mg PO DAILY@1500 08/30/23 11/18/23 Mv-Min/Folic/K1/Lycopen/Lutein 1 tab PO DAILY 08/30/23 11/18/23 [Centrum Silver Men Tablet] allopurinoL [Zyloprim] 300 mg PO DAILY@1500 08/30/23 11/18/23 Isosorbide Mononitrate ER [Imdur] 30 mg PO DAILY@1500 11/18/23 11/18/23 Spironolactone [Aldactone] 25 mg PO DAILY@1500 11/18/23 11/18/23 Previous Rx's Medication Instructions Recorded lisinopriL [Zestril] 10 mg PO DAILY tab 10/04/23 Furosemide [Lasix] 40 mg PO DAILY 90 Days #90 tab 10/10/23 Metoprolol Tartrate [Lopressor] 50 mg PO BID 90 Days #180 tab 10/10/23 HYDROcodone/APAP 7.5-325MG [[place] 1 tab PO Q4HR PRN #18 tab 11/18/23 7.5-325] Lidocaine 5% Patch [Lidoderm] 1 patch TOPICAL DAILY #25 patch 11/18/23 Allergies Allergy/AdvReac Type Severity Reaction Status Date / Time cortisone [Cortisone] Allergy Swelling Verified 12/11/23 20:50 and itching surgical tape Allergy "Broke Uncoded 12/11/23 20:50 out" "Got infection" Review of Systems ROS Statement: Those systems with pertinent positive or pertinent negative responses have been documented in the HPI. ROS Other: All systems not noted in ROS Statement are negative. Constitutional: Denies: fever, chills, weakness Respiratory: Denies: cough, dyspnea Cardiovascular: Denies: chest pain, palpitations, orthopnea, edema, syncope Gastrointestinal: Reports: abdominal pain, diarrhea, constipation. Denies: nausea, vomiting, melena, hematochezia Genitourinary: Denies: dysuria, frequency, hematuria Musculoskeletal: Denies: back pain Skin: Denies: rash Neurological: Denies: headache, weakness, numbness Past Medical History Past Medical History: Atrial Fibrillation, Coronary Artery Disease (CAD), Cancer, Eye Disorder, GI Bleed, Hyperlipidemia, Hypertension, Pneumonia, Skin Disorder, Sleep Apnea/CPAP/BIPAP, Vascular Disorder Additional Past Medical History / Comment(s): dx of lung CA Aug 2023, pneumonia Sep 2023, recent dx hemoptysis-post bronchoscopy- Sep 2023, pt states he is still coughing up blood but "It's a lot less.", back pain-increased pain with walking,Vertigo, hiatal hernia, gout, eczema, bleeds easily, uses cpap, history of prostate cancer, cataract lt eye, "I have circulation issues with my legs." "My repairer kiln car said we were going to deal with my lungs first before worrying about my legs.", pt reports swelling to bilat legs due to "I injured them fallin g off a ladder and my legs got stuck in ladder." History of Any Multi-Drug Resistant Organisms: None Reported Past Surgical History: Cholecystectomy, Heart Catheterization With Stent, Orthopedic Surgery, Prostate Surgery Additional Past Surgical History / Comment(s): Recent Bronchoscopy Aug 2023, Exploratory Abdominal Surgery; ORIF titanium/screws in LT Ankle. REPAIR BICEP TENDON LT ARM. RT CATARACT. STENTS X2. cyst removed from under chin, prostate surgery with 44 radiation txs, Watchman procedure, R lung lower lobectomy 09/28 Past Anesthesia/Blood Transfusion Reactions: Previous Problems w/ Anesthesia Additional Past Anesthesia/Blood Transfusion Reaction / Comment(s): DEVELOPED AFIB AFTER CATARACT SURG 2013. No hx of blood transfusions. Date of Last Stent Placement:: 2013 Past Psychological History: No Psychological Hx Reported Smoking Status: Former smoker Past Alcohol Use History: None Reported Past Drug Use History: None Reported - Past Family History Mother Family Medical History: Coronary Artery Disease (CAD), Myocardial Infarction ([place]) Additional Family Medical History / Comment(s): from myocardial infarction at 69 years old Father Family Medical History: Coronary Artery Disease (CAD), Myocardial Infarction ([place]) Additional Family Medical History / Comment(s): from myocardial infarction at 69 years old General Exam Limitations: no limitations General appearance: alert, in no apparent distress Head exam: Present: atraumatic, normocephalic Eye exam: Present: normal appearance. Absent: scleral icterus, conjunctival injection Neck exam: Present: normal inspection Respiratory exam: Present: normal lung sounds bilaterally, decreased breath sounds (Right base). Absent: respiratory distress, wheezes, rales, rhonchi, stridor, accessory muscle use Cardiovascular Exam: Present: regular rate, normal rhythm, normal heart sounds. Absent: systolic murmur, diastolic murmur, rubs, gallop GI/Abdominal exam: Present: soft. Absent: distended, tenderness (Mild tenderness right upper quadrant, no rebound or guarding), guarding, rebound, rigid, mass, pulsatile mass, hernia Extremities exam: Present: normal inspection, normal capillary refill. Absent: pedal edema, calf tenderness Back exam: Present: normal inspection. Absent: CVA tenderness (R), CVA tenderness (L) Neurological exam: Present: alert Skin exam: Present: warm, dry, intact, normal color. Absent: rash Course Vital Signs 12/11/23 12/12/23 20:49 00:19 Temperature 98 F 98.3 F Pulse Rate 76 53 L Respiratory 18 22 Rate Blood Pressure 137/53 126/61 O2 Sat by Pulse 98 100 Oximetry Medical Decision Making - Medical Decision Making The patient had CT of the abdomen and pelvis which I interpreted as showing presence of right pleural effusion. No obstruction or free air present. Was pt. sent in by a medical professional or institution (ALEXA Reynaga, PUMPING SUPERVISOR, urgent care, hospital, or alf...) When possible be specific @ -[No] Did you speak to anyone other than the patient for history (EMS, parent, family, police, friend...)? What history was obtained from this source @ -[No] Did you review nursing and triage notes (agree or disagree)? Why? @ -[I reviewed and agree with nursing and triage notes] Were old charts reviewed (outside hosp., previous admission, EMS record, old EKG, old radiological studies, urgent care reports/EKG's, alf records)? Report findings @ -[No old charts were reviewed] Differential Diagnosis (chest pain, altered mental status, abdominal pain women, abdominal pain men, vaginal bleeding, weakness, fever, dyspnea, syncope, headache, dizziness, GI bleed, back pain, seizure, CVA, palpatations, mental health, musculoskeletal)? @ -[Differential Abdominal Pain Men: Appendicitis, cholecystitis, diverticulosis, ischemic bowel, pancreatitis, hepatitis, UTI, gastroenteritis, AAA, incarcerated hernia, bowel obstruction, constipation, inflammatory bowel, hepatitis, peptic ulcer disease, splenic infarction, perforated viscus, testicular torsion, this is not meant to be an all-inclusive list EKG interpreted by me (3pts min.). @ -[As above] X-rays interpreted by me (1pt min.). @ -[None done] CT interpreted by me (1pt min.). @ -[I interpreted as above U/S interpreted by me (1pt. min.). @ -[None done] What testing was considered but not performed or refused? (CT, X-rays, U/S, labs)? Why? @ -[None] What meds were considered but not given or refused? Why? @ -[None] Did you discuss the management of the patient with other professionals (professionals i.e. ALEXA Reynaga, PUMPING SUPERVISOR, lab, RT, psych nurse, group social worker, purchasing internship, teacher, air defence officer, leather case finisher)? Give summary @ -[No] Was smoking cessation discussed for >3mins.? @ -[No] Was critical care preformed (if so, how long)? @ -[No] Were there social determinants of health that impacted care today? How? (Homelessness, low income, unemployed, alcoholism, drug addiction, transportation, low edu. Level, literacy, decrease access to med. care, [place] [facility], rehab)? @ -[No] Was there de-escalation of care discussed even if they declined (Discuss DNR or withdrawal of care, Hospice)? DNR status @ -[No] What co-morbidities impacted this encounter? (DM, HTN, Smoking, COPD, CAD, Cancer, CVA, ARF, Chemo, Hep., AIDS, mental health diagnosis, sleep apnea, morbid obesity)? @ -[hypertension Was patient admitted / discharged? Hospital course, mention meds given and rout e, prescriptions, significant lab abnormalities, going to OR and other pertinent info. @ -[Patient is an 83-year-old man presenting with complaints of abdominal pain. The workup does reveal presence of right-sided pleural effusion. This is discussed with patient, including appropriate further care and follow-up as well as return parameters Undiagnosed new problem with uncertain prognosis? @ -[No] Drug Therapy requiring intensive monitoring for toxicity (Heparin, Nitro, Insulin, Cardizem)? @ -[No] Were any procedures done? @ -[No] Diagnosis/symptom? @ -[ Acute abdominal pain Right pleural effusion Acute, or Chronic, or Acute on Chronic? @ -[Acute Uncomplicated (without systemic symptoms) or Complicated (systemic symptoms)? @ -[Uncomplicated Side effects of treatment? @ -[No] Exacerbation, Progression, or Severe Exacerbation? @ -[No] Poses a threat to life or bodily function? How? (Chest pain, [place], [place], pneumonia, PE, COPD, DKA, ARF, appy, cholecystitis, CVA, Diverticulitis, Homicidal, Suicidal, threat to staff... and all critical care pts) @ -[Requires further workup which the patient will have as outpatient - Lab Data Result diagrams: 12/11/23 21:35 12/11/23 21:35 Lab Results 12/11/23 12/11/23 12/11/23 Range/Units 21:35 21:35 21:35 WBC 9.0 (3.8-10.6) k/uL RBC 4.52 (4.30-5.90) m/uL Hgb 12.8 L (13.0-17.5) gm/dL Hct 40.3 (39.0-53.0) % MCV 89.3 (80.0-100.0) fL MCH 28.3 (25.0-35.0) pg MCHC 31.7 (31.0-37.0) g/dL RDW 16.4 H (11.5-15.5) % Plt Count 257 (150-450) k/uL MPV 7.8 Neutrophils % 83 % Lymphocytes % 7 % Monocytes % 5 % Eosinophils % 2 % Basophils % 0 % Neutrophils # 7.5 (1.3-7.7) k/uL Lymphocytes # 0.7 L (1.0-4.8) k/uL Monocytes # 0.5 (0-1.0) k/uL Eosinophils # 0.2 (0-0.7) k/uL Basophils # 0.0 (0-0.2) k/uL Anisocytosis Slight PT 12.0 (10.0-12.5) sec INR 1.1 (<1.2) APTT 25.3 (22.0-30.0) sec Sodium (137-145) mmol/L Potassium (3.5-5.1) mmol/L Chloride (98-107) mmol/L Carbon Dioxide (22-30) mmol/L Anion Gap mmol/L BUN (9-20) mg/dL Creatinine (0.66-1.25) mg/dL Est GFR (CKD-EPI)AfAm (>60 ml/min/1.73 sqM) Est GFR (CKD-EPI)NonAf (>60 ml/min/1.73 sqM) Glucose (74-99) mg/dL Plasma Lactic Acid Yeison (0.7-2.0) mmol/L Calcium (8.4-10.2) mg/dL Total Bilirubin (0.2-1.3) mg/dL AST (17-59) U/L ALT (4-49) U/L Alkaline Phosphatase (38-126) U/L Total Protein (6.3-8.2) g/dL Albumin (3.5-5.0) g/dL Amylase (30-110) U/L Lipase (23-300) U/L Urine Color Light Yellow Urine Appearance Clear (Clear) Urine pH 6.0 (5.0-8.0) Ur Specific Procious 1.013 (1.001-1.035) Urine Protein Negative (Negative) Urine Glucose (UA) Negative (Negative) Urine Ketones Negative (Negative) Urine Blood Negative (Negative) Urine Nitrite Negative (Negative) Urine Bilirubin Negative (Negative) Urine Urobilinogen <2.0 (<2.0) mg/dL Ur Leukocyte Esterase Negative (Negative) 12/11/23 12/11/23 Range/Units 21:35 21:35 WBC (3.8-10.6) k/uL RBC (4.30-5.90) m/uL Hgb (13.0-17.5) gm/dL Hct (39.0-53.0) % MCV (80.0-100.0) fL MCH (25.0-35.0) pg MCHC (31.0-37.0) g/dL RDW (11.5-15.5) % Plt Count (150-450) k/uL MPV Neutrophils % % Lymphocytes % % Monocytes % % Eosinophils % % Basophils % % Neutrophils # (1.3-7.7) k/uL Lymphocytes # (1.0-4.8) k/uL Monocytes # (0-1.0) k/uL Eosinophils # (0-0.7) k/uL Basophils # (0-0.2) k/uL Anisocytosis PT (10.0-12.5) sec INR (<1.2) APTT (22.0-30.0) sec Sodium 136 L (137-145) mmol/L Potassium 4.8 (3.5-5.1) mmol/L Chloride 98 (98-107) mmol/L Carbon Dioxide 30 (22-30) mmol/L Anion Gap 8 mmol/L BUN 23 H (9-20) mg/dL Creatinine 1.06 (0.66-1.25) mg/dL Est GFR (CKD-EPI)AfAm 75 (>60 ml/min/1.73 sqM) Est GFR (CKD-EPI)NonAf 65 (>60 ml/min/1.73 sqM) Glucose 128 H (74-99) mg/dL Plasma Lactic Acid Yeison 1.4 (0.7-2.0) mmol/L Calcium 9.7 (8.4-10.2) mg/dL Total Bilirubin 0.5 (0.2-1.3) mg/dL AST 22 (17-59) U/L ALT 16 (4-49) U/L Alkaline Phosphatase 84 (38-126) U/L Total Protein 6.5 (6.3-8.2) g/dL Albumin 4.0 (3.5-5.0) g/dL Amylase 80 (30-110) U/L Lipase 252 (23-300) U/L Urine Color Urine Appearance (Clear) Urine pH (5.0-8.0) Ur Specific Procious (1.001-1.035) Urine Protein (Negative) Urine Glucose (UA) (Negative) Urine Ketones (Negative) Urine Blood (Negative) Urine Nitrite (Negative) Urine Bilirubin (Negative) Urine Urobilinogen (<2.0) mg/dL Ur Leukocyte Esterase (Negative) Disposition Clinical Impression: Abdominal pain, Pleural effusion Disposition: HOME SELF-CARE Condition: Good Instructions (If sedation given, give patient instructions): Abdominal Pain (ED) Is patient prescribed a controlled substance at d/c from ED?: No Referrals: Kojo Viveros MD [Primary Care Provider] - 1-2 days
[2023-12-11 21:52] LABS: Anisocytosis Slight; Basophils % (A) 0 %; Eosinophils # (A) 0.2 k/uL (0-0.7); Eosinophils % (A) 2 %; HCT 40.3 % (39.0-53.0); HGB 12.8 gm/dL (13.0-17.5); Lymphocytes # (A) 0.7 k/uL (1.0-4.8); Lymphocytes % (A) 7 %; MCH 28.3 pg (25.0-35.0); MCHC 31.7 g/dL (31.0-37.0); MCV 89.3 fL (80.0-100.0); Mean Platelet Volume 7.8; Monocytes # (A) 0.5 k/uL (0-1.0); Monocytes % (A) 5 %; Neutrophils # (A) 7.5 k/uL (1.3-7.7); Neutrophils % (A) 83 %; Platelet Count 257 k/uL (150-450); RBC 4.52 m/uL (4.30-5.90); RDW 16.4 % (11.5-15.5)
[2023-12-11 21:53] LABS: Appearance,Urine Clear (Clear); Bilirubin,Urine Negative (Negative); Blood,Urine Negative (Negative); Color,Urine Light Yellow; Glucose,Urine (UA) Negative (Negative); Ketones,Urine Negative (Negative); Leukocyte Esterase,Urine Negative (Negative); Nitrite,Urine Negative (Negative); Protein,Urine Negative (Negative); Specific Gravity,Urine 1.013 (1.001-1.035); Urobilinogen,Urine <2.0 mg/dL (<2.0)
[2023-12-11 22:05] LABS: ALT 16 U/L (4-49); AST 22 U/L (17-59); African American GFR (CKD) 75 (>60 ml/min/1.73 sqM); Alkaline Phosphatase 84 U/L (38-126); Amylase 80 U/L (30-110); Anion Gap 8 mmol/L; Blood Urea Nitrogen 23 mg/dL (9-20); Calcium 9.7 mg/dL (8.4-10.2); Carbon Dioxide 30 mmol/L (22-30); Chloride 98 mmol/L (98-107); Glucose 128 mg/dL (74-99); Lipase 252 U/L (23-300); Non-African American GFR(CKD) 65 (>60 ml/min/1.73 sqM); Potassium 4.8 mmol/L (3.5-5.1); Sodium 136 mmol/L (137-145); Total Bilirubin 0.5 mg/dL (0.2-1.3); Total Protein 6.5 g/dL (6.3-8.2)
[2023-12-11 22:19] LABS: INR 1.1 (<1.2); Partial Thromboplastin Time 25.3 sec (22.0-30.0)
--- NOTE | 2023-12-11 22:30 | CT ---
EXAMINATION TYPE: CT abdomen pelvis wo con DATE OF EXAM: 12/11/2023 HISTORY: Right upper abdominal pain CT DLP: 1189.4 mGycm. Automated Exposure Control for Dose Reduction was Utilized. TECHNIQUE: CT scan of the abdomen and pelvis is performed without oral or IV contrast. COMPARISON: Most recent prior CT October 04, 2023 FINDINGS: Within the limitations of a non-contrast study, the following observations are made. LUNG BASES: Small right pleural effusion slightly larger versus most recent prior. There is new 1.2 c m right lower lobe pulmonary nodule axial image 13. Small degree of bilateral subareolar gynecomastia redemonstrated. Left atrial appendage clip redemonstrated. Three-vessel coronary artery desiccation and/or stents again seen. LIVER/GB: Cholecystectomy clips are redemonstrated. No biliary dilatation is evident. PANCREAS: No significant abnormality is seen. SPLEEN: No significant abnormality is seen. ADRENALS: No significant abnormality is seen. KIDNEYS: Cortical thinning bilaterally. No renal stones or hydronephrosis seen bilaterally. BOWEL: No abnormal small or large bowel dilatation. GENITAL ORGANS: No gross abnormality seen. LYMPH NODES: No greater than 1cm abdominal or pelvic lymph nodes are appreciated. OSSEOUS STRUCTURES: Moderate narrowing of both hip joints redemonstrated. Bridging osteophytes in the thoracic spine again seen. OTHER: Moderate to severe calcified plaque of the aorta extends into branch vessels. IMPRESSION: 1. No acute findings seen to account for patient's symptoms of right upper quadrant pain. 2. Small right pleural effusion slightly increased in size from prior study. In addition there is new 1.2 cm right lower lobe pulmonary nodule. Recurrent neoplasm or neoplastic progression is suspected in patient with history of lung cancer. Clinical correlation and follow-up advised.
[2023-12-12] MEDS: HYDROcodone/APAP 7.5-325MG 1 EACH TAB PO ONE (00:13)
[2023-12-12 00:46] VITALS: BP 126/61; PULSE 53; RESP 22; TEMP 98.3
== END 2023-12-12 00:20 | disposition home or self-care (01) ==
LOC: EC 20:39
DX: R10.11 Right upper quadrant pain (principal); J90 Pleural effusion, not elsewhere classified; Z91.09 Other allergy status, other than to drugs and biological substances; Z88.8 Allergy status to other drugs, medicaments and biological substances; Z87.891 Personal history of nicotine dependence
CPT/HCPCS: 36415; 74176; 80053; 81003; 82150; 83605; 83690; 85025; 85610; 85730; 99284

== ENCOUNTER → 2023-12-30 | Outpatient (CLI) | payer MEDICARE ==
--- NOTE | 2023-12-31 08:28 | PE ---
EXAMINATION TYPE: PET CT fusion skull to thigh DATE OF EXAM: 12/30/2023 CLINICAL INDICATION:Male, 83 years old with history of R91.8 LUNG MASS; TECHNIQUE: Following the intravenous administration of 8.56 mCi of F-18 FDG, whole body images are performed from the skull base to the midthigh. Images are reviewed on the computer in the coronal, a xial, and sagittal planes. Reconstructed rotating images are created on independent workstation and reviewed on the computer. A non-contrast CT is performed in conjunction with the PET scan. Glucose level 111 mg/dL CT DLP: 953.06 mGycm, Automated exposure control for dose reduction was used. COMPARISON: CT 12/11/2023, PET/CT 09/08/2023, FINDINGS: Mediastinal SUV mean is 2.7. Hepatic parenchyma SUV mean is 3.6. SKULL BASE AND NECK: * Left sign hanger space/sinus destructive mass max SUV 27.3, previously 22.0. CHEST, MEDIASTINUM, AND HILAR REGION: * Postsurgical changes to the right lower lung. Right lower lobe 6.1 x 5.0 cm cavitating mass is no longer visualized. New abnormal FDG activity throughout the thorax. Examples include: * Right lower lobe peripheral lateral 11 mm nodule is new from prior. Max SUV 29.36. * Right shoulder lymph node max SUV 13.5, no CT correlate. Possibly within a vessel. * Right upper extremity muscle medially max SUV 10.9. * Right posterior inferior pulmonary hilum max SUV 36.7 * Right anterior inferior pulmonary hilum max SUV 16.2 ABDOMEN AND PELVIS: * Abnormal uptake within the abdomen left hepatic lobe max SUV 18.1 not definitively visualized on C T imaging. Measuring 20 mm on the imaging. * Lymph node anterior to the left hepatic lobe measuring 18 mm Max SUV 21.8 * Small focus of uptake near the diaphragm on the left Max SUV 26.7. MUSCULOSKELETAL STRUCTURES: Scattered abnormal FDG activity within the osseous structures. Examples include: * Posterior right rib 3 max SUV 11.7 * Right scapula 17.3. * Right anterior rib to max SUV 23.4. * Right rib 6 max SUV 17.7 * Right gluteus medius max SUV 13.0. * Right obturator externus muscle max SUV 19.3 * Left iliac bone max SUV 17.0 * Posterior elements of T10 on the right max SUV 21.[address]: Right aphakia. Atherosclerosis of the carotid vasculature including the carotid bifurcation s the intracranial arteries and coronary arteries along with others. The bladder is distended. Prosta tomegaly. Bilateral fat-containing inguinal hernias. The gallbladder surgically absent. Heart is enla rged for size. Atrial appendage occlusion device present. Mild gynecomastia changes bilaterally. IMPRESSION: Progression of disease with now diffuse osseous metastatic disease and soft tissue metastatic deposit s. Additionally there is new pulmonary nodules and right perihilar nodules/masses.
== END | disposition home or self-care (01) ==
LOC: RADPETMAIN 13:30
PROVIDERS: ATTEND Internal Medicine Critical Care Medicine
DX: C79.51 Secondary malignant neoplasm of bone (principal); C80.1 Malignant (primary) neoplasm, unspecified; R91.8 Other nonspecific abnormal finding of lung field
CPT/HCPCS: 78815; A9552

== ENCOUNTER → 2024-01-07 | Outpatient (CLI) | payer MEDICARE ==
--- NOTE | 2024-01-07 18:49 | MR ---
EXAMINATION TYPE: MR brain wo/w con DATE OF EXAM: 01/07/2024 COMPARISON: None HISTORY: Lung cancer CONTRAST: Performed utilizing intravenous Gadavist gadolinium contrast. TECHNIQUE: Multiplanar, multiecho imaging on a 3.0 Leta magnet is performed through the brain. Stud y is performed within 24 hours of arrival to the hospital. Lack of intravenous contrast may limit morteza luation for small metastatic lesions. The craniovertebral junction is normal. The pituitary is normal. Diffusion-weighted imaging is performed. No abnormal hyperintensity is present to suggest an acute i ntracranial infarct or acute ischemic change. Suspicious intracranial signal change is not evident. Some mild periventricular and deep white matter changes are present. Ventricles and sulci are prominent for the patient age. Extracalvarial findings: There is an irregular lobular mass which appears hyperintense on multiple pu lse sequences through the left b2b outside sales representative space. This extends towards the torus tubarius and fossa of Rosenmuller. This measures 4.2 x 3.6 cm. This may have extension into the left maxillary sinus. Left maxillary sinus is opacified. Right septal deviation is present. There is diffuse mucosal thickening through the ethmoid air cells. Right maxillary sinus is clear. Sphenoid sinuses appear clear. Frontal sinuses are unremarkable. Following contrast, there is peripherally enhancing mass in the b2b outside sales representative space on the right. Some c entral hypointensity is present. Differential diagnosis can include neoplasm and abscess. Finding cor relates with the PET/CT findings. IMPRESSION: 1. Lobular enhancing mass within the left b2b outside sales representative space extending into the posterior left maxillar y sinus. Findings can be compatible with neoplasm. Consider abscess within the differential. Area cor relates with the PET/CT findings.
== END | disposition home or self-care (01) ==
LOC: RADMRIMAIN 14:49
PROVIDERS: ATTEND Internal Medicine Hematology & Oncology
DX: J34.89 Other specified disorders of nose and nasal sinuses (principal); C34.31 Malignant neoplasm of lower lobe, right bronchus or lung
CPT/HCPCS: 70553; A9585

== ENCOUNTER → 2024-01-23 | Outpatient (CLI) | payer MEDICARE ==
--- NOTE | 2024-01-24 16:28 | XR ---
EXAMINATION TYPE: XR chest 2V DATE OF EXAM: 01/23/2024 COMPARISON: 11/18/2023 INDICATION: Lung cancer and prostate cancer TECHNIQUE: Frontal and lateral views of the chest are obtained. FINDINGS: The heart size is normal. The pulmonary vasculature is normal. There is a moderate right pleural effusion which appear similar to comparison.. IMPRESSION: 1. Moderate right pleural effusion
== END | disposition home or self-care (01) ==
LOC: RADXRMAIN 15:37
PROVIDERS: ATTEND Internal Medicine Hematology & Oncology
DX: J90 Pleural effusion, not elsewhere classified (principal); C34.31 Malignant neoplasm of lower lobe, right bronchus or lung; I10 Essential (primary) hypertension; I25.10 Atherosclerotic heart disease of native coronary artery without angina pectoris; Z85.46 Personal history of malignant neoplasm of prostate
CPT/HCPCS: 71046

== ENCOUNTER 2024-02-14 17:17 | Inpatient (IN) | payer MEDICARE ==
--- NOTE | 2024-02-14 18:59 | ED ---
SOB HPI - General Source: patient, RN notes reviewed Mode of arrival: wheelchair Limitations: no limitations <Diane Hutchinson - Last Filed: 02/14/24 19:00> - General Source: RN notes reviewed, old records reviewed Mode of arrival: wheelchair Limitations: no limitations - History of Present Illness MD Complaint: shortness of breath -: days(s) Severity: moderate Consistency: constant Improves With: nothing Worsens With: nothing <Edward Peters - Last Filed: 02/21/24 22:14> - General Chief Complaint: Shortness of Breath Stated Complaint: SOB, Blood clot in lungs, Sent by PCP Time Seen by Provider: 02/14/24 17:32 - History of Present Illness Initial Comments: Quick noteis a 83-year-old male presents emergency department chief complaint of shortness of breath. Patient was referred by his primary care provider to report to the emergency department due to findings on CT consistent with a blood clot in the lungs (CTA of the chest reveals a positive pulmonary embolus in the right middle and lower lower lobe arteries and a patient status post partial right pneumonectomy). Patient has a history of a right lower lobectomy the end of December. He is on Plavix. (Diane Hutchinson) This is an 83-year-old male to the ER for shortness of breath severe shortness of breath history of pneumonectomy with lung cancer had outpatient CT scan showing pulmonary embolism, patient does have history of atrial fibrillation but procedure is watchmen and he is not currently on anticoagulation (Edward Peters) - Related Data Home Medications Medication Instructions Recorded Confirmed Ranolazine [Ranexa] 500 mg PO HS 09/03/17 02/14/24 Spironolactone [Aldactone] 25 mg PO DAILY 11/18/23 02/14/24 Capmatinib Hydrochloride [Tabrecta] 200 mg PO BID 02/14/24 02/14/24 Omeprazole 40 mg PO HS 02/14/24 02/14/24 Previous Rx's Medication Instructions Recorded Amoxic-Pot Clav 875-125Mg 1 each PO Q12HR 7 Days #14 tab 02/18/24 [Augmentin 875-125] Apixaban Initiation Dose--VTE 10 mg PO BID 30 Days #1 tab 02/18/24 [Eliquis Initiation Dosing for VTE Treatment] Aspirin 81 mg PO DAILY 90 Days #90 tab 02/18/24 Dapagliflozin Propanediol [Farxiga] 10 mg PO DAILY 90 Days #90 tab 02/18/24 Ipratropium-Albuterol Nebulize 3 ml INHALATION RT-QID 30 Days 02/18/24 [Duoneb 0.5 mg-3 mg/3 ml Soln] #120 each Lactulose [Cephulac] 20 gm PO TID PRN 90 Days #90 ml 02/18/24 Metoprolol Succinate (ER) [Toprol 50 mg PO DAILY 90 Days #90 tab 02/18/24 XL] Montelukast [Singulair] 10 mg PO HS 90 Days #90 tab 02/18/24 Nystatin 100,000 Unit/ml Susp 500,000 unit PO QID 1 Days #300 ml 02/18/24 [Mycostatin Oral Susp] Tamsulosin [Flomax] 0.4 mg PO PC-BRKFST 90 Days #90 cap 02/18/24 Torsemide [Demadex] 10 mg PO DAILY 90 Days #90 tab 02/18/24 guaiFENesin-DM 600/30MG [Mucinex 2 each PO Q12HR 15 Days #30 tab 02/18/24 Dm] lisinopriL [Zestril] 5 mg PO DAILY 90 Days #90 tab 02/18/24 Allergies Allergy/AdvReac Type Severity Reaction Status Date / Time capecitabine Allergy Rash/Hives Verified 02/14/24 21:21 cortisone [Cortisone] Allergy Swelling Verified 02/14/24 21:21 and itching surgical tape Allergy "Broke Uncoded 02/14/24 21:21 out" "Got infection" Review of Systems ROS Other: All systems not noted in ROS Statement are negative. <Diane Hutchinson - Last Filed: 02/14/24 19:00> ROS Other: All systems not noted in ROS Statement are negative. <Edward Peters - Last Filed: 02/21/24 22:14> ROS Statement: Those systems with pertinent positive or pertinent negative responses have been documented in the HPI. Past Medical History Past Medical History: Atrial Fibrillation, Coronary Artery Disease (CAD), Cancer, Eye Disorder, GI Bleed, Hyperlipidemia, Hypertension, Pneumonia, Skin Disorder, Sleep Apnea/CPAP/BIPAP, Vascular Disorder Additional Past Medical History / Comment(s): dx of lung CA Aug 2023, pneumonia Sep 2023, recent dx hemoptysis-post bronchoscopy- Sep 2023, pt states he is still coughing up blood but "It's a lot less.", back pain-increased pain with walking,Vertigo, hiatal hernia, gout, eczema, bleeds easily, uses cpap, history of prostate cancer, cataract lt eye, "I have circulation issues with my legs." "My visual merchandising associate said we were going to deal with my lungs first before worrying about my legs.", pt reports swelling to bilat legs due to "I injured them falling off a ladder and my legs got stuck in ladder." History of Any Multi-Drug Resistant Organisms: None Reported Past Surgical History: Cholecystectomy, Heart Catheterization With Stent, Orth opedic Surgery, Prostate Surgery Additional Past Surgical History / Comment(s): Recent Bronchoscopy Aug 2023, Exploratory Abdominal Surgery; ORIF titanium/screws in LT Ankle. REPAIR BICEP TENDON LT ARM. RT CATARACT. STENTS X2. cyst removed from under chin, prostate surgery with 44 radiation txs, Watchman procedure, R lung lower lobectomy 09/28 Past Anesthesia/Blood Transfusion Reactions: Previous Problems w/ Anesthesia Additional Past Anesthesia/Blood Transfusion Reaction / Comment(s): DEVELOPED AFIB AFTER CATARACT SURG 2013. No hx of blood transfusions. Date of Last Stent Placement:: 2013 Past Psychological History: No Psychological Hx Reported Smoking Status: Former smoker Past Alcohol Use History: None Reported Past Drug Use History: None Reported - Past Family History Mother Family Medical History: Coronary Artery Disease (CAD), Myocardial Infarction (MA) Additional Family Medical History / Comment(s): from myocardial infarction at 69 years old Father Family Medical History: Coronary Artery Disease (CAD), Myocardial Infarction (MA) Additional Family Medical History / Comment(s): from myocardial infarction at 69 years old <Diane Hutchinson - Last Filed: 02/14/24 19:00> General Exam Limitations: no limitations <Diane Hutchinson - Last Filed: 02/14/24 19:00> General appearance: alert, in no apparent distress, anxious Head exam: Present: atraumatic, normocephalic, normal inspection Eye exam: Present: normal appearance, PERRL, EOMI. Absent: scleral icterus, conjunctival injection, periorbital swelling ENT exam: Present: normal exam, mucous membranes moist Neck exam: Present: normal inspection. Absent: tenderness, meningismus, lymphadenopathy Respiratory exam: Present: normal lung sounds bilaterally. Absent: respiratory distress, wheezes, rales, rhonchi, stridor Cardiovascular Exam: Present: regular rate, normal rhythm, normal heart sounds. Absent: systolic murmur, diastolic murmur, rubs, gallop, clicks GI/Abdominal exam: Present: soft, normal bowel sounds. Absent: distended, tenderness, guarding, rebound, rigid Extremities exam: Present: normal inspection, full ROM, normal capillary refill. Absent: tenderness, pedal edema, joint swelling, calf tenderness Back exam: Present: normal inspection Neurological exam: Present: alert, oriented X3, CN II-XII intact Psychiatric exam: Present: normal affect, normal mood Skin exam: Present: warm, dry, intact, normal color. Absent: rash <Edward Peters - Last Filed: 02/21/24 22:14> - General Exam Comments Initial Comments: Visual Physical Exam Vital signs reviewed General: Well-appearing, nontoxic, no acute distress. Head: Normocephalic, atraumatic Eyes: PERRLA, EOMI ENT: Airway patent Chest: Nonlabored breathing Skin: No visual rash, normal skin tone Neuro: Alert and oriented 3 Musculoskeletal: No gross abnormalities (Stieler,Diane) Course <Edward Peters - Last Filed: 02/21/24 22:14> Vital Signs 02/14/24 02/14/24 02/14/24 18:04 20:05 20:14 Temperature 98.5 F Pulse Rate 87 84 Respiratory 18 22 14 Rate Blood Pressure 130/73 146/109 O2 Sat by Pulse 97 100 Oximetry 02/14/24 02/14/24 02/15/24 21:18 22:55 00:12 Temperature Pulse Rate 81 83 76 Respiratory 16 17 17 Rate Blood Pressure 144/130 150/72 120/63 O2 Sat by Pulse 99 98 99 Oximetry 02/15/24 02/15/24 02/15/24 01:29 02:00 03:00 Temperature Pulse Rate 75 76 84 Respiratory 16 17 17 Rate Blood Pressure 126/72 126/60 124/85 O2 Sat by Pulse 99 98 98 Oximetry 02/15/24 02/15/24 02/15/24 04:00 05:00 06:00 Temperature Pulse Rate 81 79 73 Respiratory 16 14 16 Rate Blood Pressure 121/79 145/76 136/73 O2 Sat by Pulse 97 99 99 Oximetry 02/15/24 02/15/24 02/15/24 07:43 08:33 11:26 Temperature Pulse Rate 84 106 H Respiratory 20 Rate Blood Pressure 141/53 O2 Sat by Pulse 99 96 Oximetry 02/15/24 02/15/24 02/15/24 11:46 13:02 15:24 Temperature Pulse Rate 107 H 93 76 Respiratory 18 16 Rate Blood Pressure 140/71 91/46 O2 Sat by Pulse 95 97 Oximetry 02/15/24 02/15/24 02/15/24 15:37 15:47 16:19 Temperature 97.6 F Pulse Rate 80 85 77 Respiratory 16 Rate Blood Pressure 101/51 O2 Sat by Pulse 98 Oximetry - Reevaluation(s) Reevaluation #1: 02/14/24 21:55 Reviewed (Edward Peters) Reevaluation #2: 02/14/24 21:55 Patient symptoms unchanged (Edward Peters) Reevaluation #3: 02/14/24 21:55 Patient informed of results questions answered (Edward Peters) Reevaluation #4: Was pt. sent in by a medical professional or institution (, PA, [facility], urgent care, hospital, or care home...) When possible be specific @ - Did you speak to anyone other than the patient for history (EMS, parent, family, police, friend...)? What history was obtained from this source @ -no Did you review nursing and triage notes (agree or disagree)? Why? @ -agree Are old charts reviewed (outside hosp., previous admission, EMS record, old EKG, old radiological studies, urgent care reports/EKG's, care home records)? Report findings @ -yes. Prior CT scan does show positive PE Differential Diagnosis (chest pain, altered mental status, abdominal pain women, abdominal pain men, vaginal bleeding, weakness, fever, dyspnea, syncope, headache, dizziness, GI bleed, back pain, seizure, CVA, palpatations, mental health, musculoskeletal)? @ -prior EKG interpreted by me (3pts min.). @ -yes X-rays interpreted by me (1pt min.). @ -no CT interpreted by me (1pt min.). @ -no U/S interpreted by me (1pt. min.). @ -no What testing was considered but not performed or refused? (CT, X-rays, U/S, labs)? Why? @ -none What meds were considered but not given or refused? Why? @ -none Did you discuss the management of the patient with other professionals (jasper ryan i.e. , PA, [facility], lab, RT, psych nurse, social work specialist, change agent, teacher, transportation security officer, rn case manager)? Give summary @ -no Was smoking cessation discussed for >3mins.? @ -no Was critical care preformed (if so, how long)? @ -yes31 Were there social determinants of health that impacted care today? How? (Homelessness, low income, unemployed, alcoholism, drug addiction, transportation, low edu. Level, literacy, decrease access to med. care, skilled nursing, rehab)? @ -none Was there de-escalation of care discussed even if they declined (Discuss DNR or withdrawal of care, Hospice)? DNR status @ -no What co-morbidities impacted this encounter? (DM, HTN, Smoking, COPD, CAD, Cancer, CVA, ARF, Chemo, Hep., AIDS, mental health diagnosis, sleep apnea, morbid obesity)? @ -none Was patient admitted / discharged? Hospital course, mention meds given and route, prescriptions, significant lab abnormalities, going to OR and other pertinent info. @ - 83 male to ER new diagnosis of PE. Patient will admit for vascular consultation and anticoagulation Admit Undiagnosed new problem with uncertain prognosis? @ -no Drug Therapy requiring intensive monitoring for toxicity (Heparin, Nitro, Insulin, Cardizem)? @ -no Were any procedures done? @ -no Diagnosis/symptom? @ -83 male to ER new diagnosis of PE. Patient will admit for vascular consultation and anticoagulation Admitted Acute, or Chronic, or Acute on Chronic? @ -Acute Uncomplicated (without systemic symptoms) or Complicated (systemic symptoms)? @ -Complicated Side effects of treatment? @ -no Exacerbation, Progression, or Severe Exacerbation? @ -exacerbation Poses a threat to life or bodily function? How? (Chest pain, USA, MA, pneumonia, PE, COPD, DKA, ARF, appy, cholecystitis, CVA, Diverticulitis, Homicidal, Suicidal, threat to staff... and all critical care pts) @ -yes, laboratory studies with PE yes primary care sent patient in for outpatient PE finding (Edward Peters) Reevaluation #5: Differential Dyspnea: Coronary syndrome, arrhythmia, tamponade, asthma, COPD, pulmonary embolism, pneumonia, pneumothorax, pulmonary effusion, anaphylaxis, diabetic ketoacidosis, flailed chest, pulmonary contusion, diaphragmatic rupture, anemia, neuromuscular, this is not meant to be an all-inclusive list. (Edward Peters) - Consultations Consultation #1: Spoke with Dr. Viveros who agrees to admit this patient (Edward Peters) Medical Decision Making <Diane Hutchinson - Last Filed: 02/14/24 19:00> - Lab Data Result diagrams: 02/17/24 08:44 02/17/24 08:44 - EKG Data -: EKG Interpreted by Me (EKG is A-fib 85 QRS 96 QTc 361) - Radiology Data Radiology results: report reviewed (Angio chest positive for PE), image reviewed <Edward Peters - Last Filed: 02/21/24 22:14> - Medical Decision Making I completed the quick note portion of this chart signed Diane Hutchinson PA-C (Diane Hutchinson) 83 male to ER new diagnosis of PE. Patient will admit for vascular consultation and anticoagulation (Edward Peters) - Lab Data Lab Results 02/14/24 02/14/24 02/14/24 Range/Units 19:58 19:58 19:58 WBC 7.4 (3.8-10.6) k/uL RBC 5.54 (4.30-5.90) m/uL Hgb 15.7 (13.0-17.5) gm/dL Hct 47.0 (39.0-53.0) % MCV 84.9 (80.0-100.0) fL MCH 28.3 (25.0-35.0) pg MCHC 33.3 (31.0-37.0) g/dL RDW 18.7 H (11.5-15.5) % Plt Count 261 (150-450) k/uL MPV 7.8 Neutrophils % 79 % Lymphocytes % 8 % Monocytes % 8 % Eosinophils % 2 % Basophils % 0 % Neutrophils # 5.9 (1.3-7.7) k/uL Lymphocytes # 0.6 L (1.0-4.8) k/uL Monocytes # 0.6 (0-1.0) k/uL Eosinophils # 0.1 (0-0.7) k/uL Basophils # 0.0 (0-0.2) k/uL Poikilocytosis Slight Anisocytosis Slight PT 12.5 (10.0-12.5) sec INR 1.2 H (<1.2) APTT 25.6 (22.0-30.0) sec Sodium 129 L (137-145) mmol/L Potassium 4.5 (3.5-5.1) mmol/L Chloride 97 L (98-107) mmol/L Carbon Dioxide 28 (22-30) mmol/L Anion Gap 4 mmol/L BUN 16 (9-20) mg/dL Creatinine 0.85 (0.66-1.25) mg/dL Est GFR (CKD-EPI)AfAm >90 (>60 ml/min/1.73 sqM) Est GFR (CKD-EPI)NonAf 81 (>60 ml/min/1.73 sqM) Glucose 112 H (74-99) mg/dL Calcium 8.7 (8.4-10.2) mg/dL Total Bilirubin 1.8 H (0.2-1.3) mg/dL AST 34 (17-59) U/L ALT 25 (4-49) U/L Alkaline Phosphatase 99 (38-126) U/L Troponin I (0.000-0.034) ng/mL NT-Pro-B Natriuret Pep 1110 pg/mL Total Protein 6.6 (6.3-8.2) g/dL Albumin 3.9 (3.5-5.0) g/dL 02/14/24 Range/Units 19:58 WBC (3.8-10.6) k/uL RBC (4.30-5.90) m/uL Hgb (13.0-17.5) gm/dL Hct (39.0-53.0) % MCV (80.0-100.0) fL MCH (25.0-35.0) pg MCHC (31.0-37.0) g/dL RDW (11.5-15.5) % Plt Count (150-450) k/uL MPV Neutrophils % % Lymphocytes % % Monocytes % % Eosinophils % % Basophils % % Neutrophils # (1.3-7.7) k/uL Lymphocytes # (1.0-4.8) k/uL Monocytes # (0-1.0) k/uL Eosinophils # (0-0.7) k/uL Basophils # (0-0.2) k/uL Poikilocytosis Anisocytosis PT (10.0-12.5) sec INR (<1.2) APTT (22.0-30.0) sec Sodium (137-145) mmol/L Potassium (3.5-5.1) mmol/L Chloride (98-107) mmol/L Carbon Dioxide (22-30) mmol/L Anion Gap mmol/L BUN (9-20) mg/dL Creatinine (0.66-1.25) mg/dL Est GFR (CKD-EPI)AfAm (>60 ml/min/1.73 sqM) Est GFR (CKD-EPI)NonAf (>60 ml/min/1.73 sqM) Glucose (74-99) mg/dL Calcium (8.4-10.2) mg/dL Total Bilirubin (0.2-1.3) mg/dL AST (17-59) U/L ALT (4-49) U/L Alkaline Phosphatase (38-126) U/L Troponin I <0.012 (0.000-0.034) ng/mL NT-Pro-B Natriuret Pep pg/mL Total Protein (6.3-8.2) g/dL Albumin (3.5-5.0) g/dL Critical Care Time Critical Care Time: Yes Total Critical Care Time: 31 <Edward Peters - Last Filed: 02/21/24 22:14> Disposition <Diane Hutchinson - Last Filed: 02/14/24 19:00> Is patient prescribed a controlled substance at d/c from ED?: No Time of Disposition: 21:55 <Edward Peters - Last Filed: 02/21/24 22:14> Clinical Impression: Non-small cell lung cancer (NSCLC), Chronic atrial fibrillation, Pulmonary em bolism Disposition: ADMITTED IP TO THIS HOSP Condition: Serious
[2024-02-14] MEDS ORDERED: HEPARIN SODIUM 1,000 UN/ML (10ML VL) IV PRN (19:47)
[2024-02-14] MEDS: HEPARIN SOD,PORK IN 0.45% NACL 25,000 UNIT in 0.45% NACL 1 250ML.BAG IV SCH (20:01)
[2024-02-14] MEDS: HEPARIN SODIUM 1,000 UN/ML (10ML VL) IV ONE (20:03)
[2024-02-14 20:16] LABS: Potassium 4.5 mmol/L (3.5-5.1)
[2024-02-14 20:17] LABS: ALT 25 U/L (4-49); AST 34 U/L (17-59); African American GFR (CKD) >90 (>60 ml/min/1.73 sqM); Albumin 3.9 g/dL (3.5-5.0); Alkaline Phosphatase 99 U/L (38-126); Anion Gap 4 mmol/L; Anisocytosis Slight; Basophils % (A) 0 %; Blood Urea Nitrogen 16 mg/dL (9-20); Calcium 8.7 mg/dL (8.4-10.2); Carbon Dioxide 28 mmol/L (22-30); Chloride 97 mmol/L (98-107); Eosinophils # (A) 0.1 k/uL (0-0.7); Eosinophils % (A) 2 %; Glucose 112 mg/dL (74-99); HGB 15.7 gm/dL (13.0-17.5); INR 1.2 (<1.2); Lymphocytes # (A) 0.6 k/uL (1.0-4.8); Lymphocytes % (A) 8 %; MCH 28.3 pg (25.0-35.0); MCHC 33.3 g/dL (31.0-37.0); MCV 84.9 fL (80.0-100.0); Mean Platelet Volume 7.8; Monocytes # (A) 0.6 k/uL (0-1.0); Monocytes % (A) 8 %; Neutrophils # (A) 5.9 k/uL (1.3-7.7); Neutrophils % (A) 79 %; Non-African American GFR(CKD) 81 (>60 ml/min/1.73 sqM); Partial Thromboplastin Time 25.6 sec (22.0-30.0); Platelet Count 261 k/uL (150-450); Poikilocytosis Slight; Prothrombin Time 12.5 sec (10.0-12.5); RBC 5.54 m/uL (4.30-5.90); RDW 18.7 % (11.5-15.5); Sodium 129 mmol/L (137-145); Total Bilirubin 1.8 mg/dL (0.2-1.3); Total Protein 6.6 g/dL (6.3-8.2); WBC 7.4 k/uL (3.8-10.6)
[2024-02-14 20:26] LABS: NT-Pro-B-Type Natriuretic Pept 1110 pg/mL
[2024-02-14] MEDS ORDERED: ONDANSETRON 4 MG/2 ML VIAL IVP PRN (21:18)
[2024-02-14] MEDS: MORPHINE SULFATE 2 MG/ML SYRINGE IVP STA (21:25)
[2024-02-14] MEDS: ONDANSETRON 4 MG/2 ML VIAL IVP STA (21:26)
[2024-02-14] MEDS: NYSTATIN 100,000 UNIT/ML SUSP 500,000 UNIT/5 ML CUP PO SCH (21:27)
[2024-02-14] MEDS ORDERED: NALOXONE 0.4 MG/ML 1 ML VIAL IV PRN (21:49)
[2024-02-14] MEDS ORDERED: MORPHINE SULFATE 4 MG/ML SYRINGE IV PRN (21:49)
[2024-02-15 02:50] LABS: Anisocytosis Slight; HCT 45.8 % (39.0-53.0); HGB 14.8 gm/dL (13.0-17.5); MCH 27.9 pg (25.0-35.0); MCHC 32.3 g/dL (31.0-37.0); MCV 86.4 fL (80.0-100.0); Mean Platelet Volume 7.5; Platelet Count 233 k/uL (150-450); Poikilocytosis Slight; RDW 18.8 % (11.5-15.5); WBC 7.4 k/uL (3.8-10.6)
[2024-02-15 03:04] LABS: ALT 22 U/L (4-49); AST 30 U/L (17-59); African American GFR (CKD) >90 (>60 ml/min/1.73 sqM); Albumin 3.3 g/dL (3.5-5.0); Alkaline Phosphatase 88 U/L (38-126); Anion Gap 3 mmol/L; Blood Urea Nitrogen 15 mg/dL (9-20); Calcium 8.3 mg/dL (8.4-10.2); Carbon Dioxide 23 mmol/L (22-30); Chloride 103 mmol/L (98-107); Glucose 119 mg/dL (74-99); Magnesium 1.9 mg/dL (1.6-2.3); Non-African American GFR(CKD) 85 (>60 ml/min/1.73 sqM); Phosphorus 3.2 mg/dL (2.5-4.5); Potassium 4.5 mmol/L (3.5-5.1); Sodium 129 mmol/L (137-145); Total Bilirubin 1.3 mg/dL (0.2-1.3); Total Protein 5.7 g/dL (6.3-8.2)
[2024-02-15 05:36] LABS: Lymphocytes # (M) 0.44 k/uL (1.0-4.8); Monocytes # (M) 0.89 k/uL (0-1.0); Neutrophils # (M) 5.77 k/uL (1.3-7.7); Neutrophils % (M) 78 %; Nucleated Red Blood Cells 0 /100 WBC (0-0); Total Cells Counted 100
[2024-02-15] MEDS: PANTOPRAZOLE 40 MG/10 ML VIAL IV SCH (08:29)
[2024-02-15] MEDS: FUROSEMIDE 10 MG/ML 4 ML VIAL IV STA (09:30)
[2024-02-15] MEDS: ASPIRIN 81 MG PO SCH (09:30)
[2024-02-15] MEDS: ISOSORBIDE MONONITRATE ER 60 MG TAB.ER.24H PO SCH (09:30)
[2024-02-15] MEDS: SPIRONOLACTONE 25 MG TAB PO SCH (09:30)
[2024-02-15] MEDS: lisinopriL 10 MG TAB PO SCH (09:30)
--- NOTE | 2024-02-15 09:50 | US ---
EXAMINATION TYPE: US venous doppler duplex LE BI DATE OF EXAM: 02/15/2024 9:00 AM COMPARISON: NONE CLINICAL INDICATION: Male, 83 years old with history of PE; PE SIDE PERFORMED: Bilateral TECHNIQUE: The lower extremity deep venous system is examined utilizing real time linear array sonog jw with graded compression, doppler sonography and color-flow sonography. VESSELS IMAGED: Common Femoral Vein Deep Femoral Vein Greater Saphenous Vein * Femoral Vein Popliteal Vein Small Saphenous Vein * Proximal Calf Veins (* superficial vessels) Right Leg: No evidence for DVT Left Leg: No evidence for DVT IMPRESSION: Grayscale, color doppler, spectral doppler imaging performed of the deep veins of the lo wer extremities. There is normal flow, compressibility, vascular waveforms.
--- NOTE | 2024-02-15 09:55 | P.GSCN ---
History of Present Illness Consult date: 02/15/24 Reason for Consult: Pulmonary embolism Requesting physician: Edward Peters History of present illness: This is a pleasant 83-year-old male with past medical history including atrial fibrillation status post Watchman, coronary artery disease status post stents, hypertension, hyperlipidemia, sleep apnea, cataract, prostate cancer and recent diagnosis of metastatic lung cancer in August 2023 who underwent right partial pneumonectomy at the end of December who had been having complaints of shortness of breath and underwent CT angiogram of the chest as an outpatient. He was called by his primary care physician Dr. Allen and told to come to the emergency department for pulmonary embolism. Vascular surgery was consulted for pulmonary embolism. Patient is currently sitting up in recliner. He appears in no distress. At this time he has no oxygen on and saturation is 94%. He denies any chest pain and shortness of breath is improved at this time. He does have a productive cough. He states he does have lower extremity swelling, worse on the left than right. This is chronic for him. Chest CTA positive for pulmonary embolus in the proximal right middle and lower lobe arteries. Mildly enlarged pulmonary trunk, and cardiomegaly with reflux of contrast to the hepatic level IVC and hepatic veins suggestive of right heart insufficiency. There is additional small segmental embolus in the left lower lobe pulmonary artery. Troponins were negative x 3. He was started on IV heparin drip. Review of Systems A 14 point review systems was completed all pertinent positives and negatives as stated in the HPI. Past Medical History Past Medical History: Atrial Fibrillation, Coronary Artery Disease (CAD), Cancer, Eye Disorder, GI Bleed, Hyperlipidemia, Hypertension, Pneumonia, Skin Disorder, Sleep Apnea/CPAP/BIPAP, Vascular Disorder Additional Past Medical History / Comment(s): dx of lung CA Aug 2023, pneumonia Sep 2023, recent dx hemoptysis-post bronchoscopy- Sep 2023, pt states he is still coughing up blood but "It's a lot less.", back pain-increased pain with walking,Vertigo, hiatal hernia, gout, eczema, bleeds easily, uses cpap, history of prostate cancer, cataract lt eye, "I have circulation issues with my legs." "My multi line claims adjuster said we were going to deal with my lungs first before worrying about my legs.", pt reports swelling to bilat legs due to "I injured them falling off a ladder and my legs got stuck in ladder." History of Any Multi-Drug Resistant Organisms: None Reported Past Surgical History: Cholecystectomy, Heart Catheterization With Stent, Orthopedic Surgery, Prostate Surgery Additional Past Surgical History / Comment(s): Recent Bronchoscopy Aug 2023, Exploratory Abdominal Surgery; ORIF titanium/screws in LT Ankle. REPAIR BICEP TENDON LT ARM. RT CATARACT. STENTS X2. cyst removed from under chin, prostate surgery with 44 radiation txs, Watchman procedure, R lung lower lobectomy 09/28 Past Anesthesia/Blood Transfusion Reactions: Previous Problems w/ Anesthesia Additional Past Anesthesia/Blood Transfusion Reaction / Comm: DEVELOPED AFIB AFT ER CATARACT SURG 2013. No hx of blood transfusions. Date of Last Stent Placement:: 2013 Past Psychological History: No Psychological Hx Reported Smoking Status: Former smoker Past Alcohol Use History: None Reported Past Drug Use History: None Reported - Past Family History Mother Family Medical History: Coronary Artery Disease (CAD), Myocardial Infarction ([place]) Additional Family Medical History / Comment(s): from myocardial infarction at 69 years old Father Family Medical History: Coronary Artery Disease (CAD), Myocardial Infarction ([place]) Additional Family Medical History / Comment(s): from myocardial infarction at 69 years old Medications and Allergies Home Medications Medication Instructions Recorded Confirmed Type Clopidogrel Bisulfate [Plavix] 75 mg PO HS 09/03/17 02/14/24 History Ranolazine [Ranexa] 500 mg PO HS 09/03/17 02/14/24 History Colchicine 0.6 mg PO DAILY 08/30/23 02/14/24 History allopurinoL [Zyloprim] 300 mg PO DAILY 08/30/23 02/14/24 History Spironolactone [Aldactone] 25 mg PO DAILY 11/18/23 02/14/24 History Capmatinib Hydrochloride [Tabrecta] 200 mg PO BID 02/14/24 02/14/24 History Isosorbide Mononitrate ER [Imdur] 60 mg PO DAILY 02/14/24 02/14/24 History Metoprolol Tartrate [Lopressor] 50 mg PO HS 02/14/24 02/14/24 History Omeprazole 40 mg PO HS 02/14/24 02/14/24 History Potassium Chloride ER [K-Dur 10] 10 meq PO HS 02/14/24 02/14/24 History lisinopriL [Zestril] 10 mg PO BID 02/14/24 02/14/24 History Allergies Allergy/AdvReac Type Severity Reaction Status Date / Time capecitabine Allergy Rash/Hives Verified 02/14/24 21:21 cortisone [Cortisone] Allergy Swelling Verified 02/14/24 21:21 and itching surgical tape Allergy "Broke Uncoded 02/14/24 21:21 out" "Got infection" Surgical - Exam Vital Signs Temp Pulse Resp BP Pulse Ox 98.5 F 87 18 130/73 97 02/14/24 18:04 02/14/24 18:04 02/14/24 18:04 02/14/24 18:04 02/14/24 18:04 General appearance: The patient is alert, oriented, appears in no acute distress. HET: Head is normocephalic and atraumatic. Neck: Supple. Heart: Regular. Lungs: Equal expansion, normal respiratory effort. Abdomen: Soft, nontender, nondistended. Extremities: Normal skin color and turgor. Lower extremity edema. Neurological: No focal deficits. Alert and oriented x 3. Results - Labs 02/15/24 06:00 02/15/24 06:00 Abnormal Lab Results - Last 24 Hours (Table) 02/14/24 02/14/24 02/14/24 Range/Units 19:58 19:58 19:58 RDW 18.7 H (11.5-15.5) % Lymphocytes # 0.6 L (1.0-4.8) k/uL Lymphocytes # (Manual) (1.0-4.8) k/uL INR 1.2 H (<1.2) APTT (22.0-30.0) sec Sodium 129 L (137-145) mmol/L Chloride 97 L (98-107) mmol/L Glucose 112 H (74-99) mg/dL Calcium (8.4-10.2) mg/dL Total Bilirubin 1.8 H (0.2-1.3) mg/dL Total Protein (6.3-8.2) g/dL Albumin (3.5-5.0) g/dL 02/15/24 02/15/24 02/15/24 Range/Units 01:54 06:00 06:00 RDW 18.8 H (11.5-15.5) % Lymphocytes # (1.0-4.8) k/uL Lymphocytes # (Manual) 0.44 L (1.0-4.8) k/uL INR (<1.2) APTT >200.0 H* (22.0-30.0) sec Sodium 129 L (137-145) mmol/L Chloride (98-107) mmol/L Glucose 119 H (74-99) mg/dL Calcium 8.3 L (8.4-10.2) mg/dL Total Bilirubin (0.2-1.3) mg/dL Total Protein 5.7 L (6.3-8.2) g/dL Albumin 3.3 L (3.5-5.0) g/dL Diabetes panel 02/14/24 02/15/24 Range/Units 19:58 06:00 Sodium 129 L 129 L (137-145) mmol/L Potassium 4.5 4.5 (3.5-5.1) mmol/L Chloride 97 L 103 (98-107) mmol/L Carbon Dioxide 28 23 (22-30) mmol/L BUN 16 15 (9-20) mg/dL Creatinine 0.85 0.75 (0.66-1.25) mg/dL Glucose 112 H 119 H (74-99) mg/dL Calcium 8.7 8.3 L (8.4-10.2) mg/dL AST 34 30 (17-59) U/L ALT 25 22 (4-49) U/L Alkaline Phosphatase 99 88 (38-126) U/L Total Protein 6.6 5.7 L (6.3-8.2) g/dL Albumin 3.9 3.3 L (3.5-5.0) g/dL Calcium panel 02/14/24 02/15/24 Range/Units 19:58 06:00 Calcium 8.7 8.3 L (8.4-10.2) mg/dL Phosphorus 3.2 (2.5-4.5) mg/dL Albumin 3.9 3.3 L (3.5-5.0) g/dL Pituitary panel 02/14/24 02/15/24 Range/Units 19:58 06:00 Sodium 129 L 129 L (137-145) mmol/L Potassium 4.5 4.5 (3.5-5.1) mmol/L Chloride 97 L 103 (98-107) mmol/L Carbon Dioxide 28 23 (22-30) mmol/L BUN 16 15 (9-20) mg/dL Creatinine 0.85 0.75 (0.66-1.25) mg/dL Glucose 112 H 119 H (74-99) mg/dL Calcium 8.7 8.3 L (8.4-10.2) mg/dL Adrenal panel 02/14/24 02/15/24 Range/Units 19:58 06:00 Sodium 129 L 129 L (137-145) mmol/L Potassium 4.5 4.5 (3.5-5.1) mmol/L Chloride 97 L 103 (98-107) mmol/L Carbon Dioxide 28 23 (22-30) mmol/L BUN 16 15 (9-20) mg/dL Creatinine 0.85 0.75 (0.66-1.25) mg/dL Glucose 112 H 119 H (74-99) mg/dL Calcium 8.7 8.3 L (8.4-10.2) mg/dL Total Bilirubin 1.8 H 1.3 (0.2-1.3) mg/dL AST 34 30 (17-59) U/L ALT 25 22 (4-49) U/L Alkaline Phosphatase 99 88 (38-126) U/L Total Protein 6.6 5.7 L (6.3-8.2) g/dL Albumin 3.9 3.3 L (3.5-5.0) g/dL - Imaging Comments: Chest CT angiogram for PE Positive study for pulmonary embolus in the proximal right middle and/or lower lobe arteries, in a patient status post partial right pneumonectomy. Mildly enlarged pulmonary trunk, can be seen with pulmonary hypertension and or exacerbated by the embolus. Cardiomegaly with reflux of contrast to the hepatic level IVC and hepatic veins, suggestive of right heart insufficiency. Additional small segmental embolus in the left lower lobe artery. Postoperative changes of the right from partial pneumonectomy with resection of the right middle and or lower lobes noted. Presumed scarring and/or atelectasis in the right hilar and infrahilar region similar to the prior exam; underlying small active malignant/metastatic tissue cannot be fully excluded. Previous 11 mm nodule in the right lung base on previous PET/CT appears reduced, now about 8 mm. Small right pleural effusion again noted, unchanged. Moderate arthrosclerotic calcifications of the aorta and branches, including the coronary arteries. Fusiform ectasia of the ascending aorta, 4.1 cm. Osseous metastasis redemonstrated as above. Metastasis involving the right anterior second rib shows slight interval improvement. There appears to be a new pathologic healing nondisplaced fracture of the right lateral sixth rib, where there was a small metastasis before. Lower extremity venous duplex negative for DVT in bilateral lower extremities. Assessment and Plan Assessment: 1. Pulmonary embolus 2. Recent partial right pneumonectomy 3. Metastatic lung cancer 4. Atrial fibrillation 5. Coronary artery disease 6. Hyperlipidemia 7. Hypertension 8. Sleep apnea Plan: 1. Await echocardiogram results 2. Continue IV heparin per protocol 3. Will order venous duplex of lower extremities 4. Will consult pulmonology for PE and lung cancer with recent right partial pneumonectomy 5. Patient is a poor surgical candidate for intervention. Further recommendations forthcoming. 6. Rest of medical management per primary medical physician Thank you for this consultation, we will continue to follow. The impression and plan of care has been dictated as directed. I performed a history and examination of this patient, discussed the same with the dictator. I agree with the dictator's note ,documented as a scribe. Any additional findings or plans will be noted.
--- NOTE | 2024-02-15 10:53 | CA ---
Transthoracic Echo Report Name: Den Bull Age: 83 Gender: M : 1940 Exam Date: 02/15/2024 09:39 Exam Location: [facility] Ht (in): 76 Wt (lb): 238 Ordering Physician: Magaly Fregoso Attending/Referring Phys: Soap Slabber Ivory Tinoco RDCS Procedure CPT: Indications: PE, evaluate for right heart strain Cardiac Hx: Technical Quality: Technically difficult study Contrast 1: Definity Total Dose (mL): 2 Contrast 2: Total Dose (mL): MEASUREMENTS (Male / Female) Normal Values 2D ECHO LV Diastolic Diameter PLAX 4.8 cm 4.2 - 5.9 / 3.9 - 5.3 cm LV Systolic Diameter PLAX 2.8 cm IVS Diastolic Thickness 1.2 cm 0.6 - 1.0 / 0.6 - 0.9 cm LVPW Diastolic Thickness 1.5 cm 0.6 - 1.0 / 0.6 - 0.9 cm LV Relative Wall Thickness 0.6 RV Internal Dim ED PLAX 4.1 cm LA Systolic Diameter LX 4.0 cm 3.0 - 4.0 / 2.7 - 3.8 cm M-MODE Aortic Root Diameter MM 4.3 cm LA Systolic Diameter MM 2.1 cm LA Ao Ratio MM 0.5 DOPPLER AV Peak Velocity 85.7 cm/s AV Peak Gradient 2.9 mmHg MV Area PHT 5.3 cm??? TR Peak Velocity 296.3 cm/s TR Peak Gradient 35.1 mmHg Right Ventricular Systolic Press 50.1 mmHg FINDINGS Left Ventricle Left ventricular ejection fraction is estimated at 65-70 %. Left ventricular cavity size normal. Mildly increased septal wall thickness. No obvious regional wall motion abnormalities. Right Ventricle Severe right ventricular dilatation. Moderate pulmonary hypertension. Right ventricular systolic pressure estimated at 50 mm hg. Right Atrium Right atrium not well visualized. Left Atrium Mild left atrial dilatation. No left atrial thrombus or mass present. Mitral Valve Mitral valve thickened. Mild mitral regurgitation. No mitral stenosis. No evidence for mitral valve prolapse. Aortic Valve Trileaflet aortic valve. No aortic valve stenosis or regurgitation. Tricuspid Valve Tricuspid valve not well visualized. Mild tricuspid regurgitation. Pulmonic Valve Structurally normal pulmonic valve. Mild pulmonic regurgitation. Pericardium No pericardial or pleural effusion. Aorta Moderate aortic dilatation at the level of the sinuses of valsalva 43 mm CONCLUSIONS Preserved LV send systolic function Right ventricular enlargement Previewed by: Dr. Kaz Santoyo MD (Electronically Signed) Final Date: 15 February 2024 10:53
[2024-02-15] MEDS: SODIUM CHLORIDE 0.9% 1,000 ML IV SCH (10:57)
[2024-02-15] MEDS: IPRATROPIUM-ALBUTEROL 3 ML NEB INHALATION SCH (11:26)
--- NOTE | 2024-02-15 11:50 | P.CRDCN ---
History of Present Illness History of present illness: HISTORY OF PRESENT ILLNESS: This is a 83 year old male with a past medical history significant for permanent atrial fibrillation, cardioversion, coronary artery disease with previous sten ting, hypertension, hyperlipidemia, and lung cancer with recent right lower lobe resection. Patient follows with Dr. Kuhn. We have been asked to see the patient in consultation for pulmonary embolism. Patient examined this morning in the emergency room. Patient states that he recently saw his primary care physician and was complaining of ongoing shortness of breath and patient was ordered to have a CTA on outpatient basis. Patient had CTA performed yesterday revealing pulmonary embolism and proximal right middle and/or lower lobe arteries, mildly enlarged pulmonary trunk, cardiomegaly, additional small segmental embolus in the left lower pulmonary artery, resection of right middle and/or lower lobes noted, presumed scarring and/or atelectasis in the right hilar and infrahilar region, previous 11 mm nodule in the right lung base now reduced measuring 8 mm, small right pleural effusion, moderate atherosclerotic calcifications. Patient was started on IV heparin. At the time of examination this morning patient continues to report shortness of breath. He does have a frequent cough during examination. He denies any chest pain or pressure. Bedside telemetry reveals atrial fibrillation with controlled ventricular rate. Patient is not anticoagulated on an outpatient basis secondary to history of Watchman device. Patient however denies having any issues in the past with bl eeding. DIAGNOSTICS: - EKG reveals atrial fibrillation with left anterior fascicular block. Incomp lete right bundle branch block. PVCs. - Venous Doppler: Negative for DVT bilaterally - Laboratory data: WBC 7.4. Hemoglobin 14.8. Platelet count 233. Sodium 129. Potassium 4.5. BUN 15. Creatinine 0.75. Troponin negative x 3. proBNP 1110. - Current home cardiac medications include Plavix 75 mg at night, Imdur 60 mg daily, metoprolol titrate 50 mg at night, Ranexa 500 mg at night, Aldactone 25 mg daily, lisinopril 10 mg twice a day. - Echocardiogram obtained on 10/08/2023 revealed ejection fraction 50 to 55%, moderate to severe pulmonary hypertension, mild mitral regurgitation, and modera te tricuspid regurgitation -Echocardiogram obtained this admission reveals ejection fraction 65 to 70%, severe right ventricular dilatation, moderate pulmonary hypertension, mild tricuspid regurgitation REVIEW OF SYSTEMS: At the time of my exam: CONSTITUTIONAL: Denies fever or chills. HEENT: Denies blurred vision, vision changes, or eye pain. Denies hemoptysis CARDIOVASCULAR: Denies chest pain. Denies orthopnea. Denies PND. Denies palpitations RESPIRATORY: Reports shortness of breath. Reports cough. GASTROINTESTINAL: Denies abdominal pain. Denies nausea or vomiting. HEMATOLOGIC: Denies bleeding disorders. GENITOURINARY: Denies any blood in urine. SKIN: Denies pruitis. Denies rash. PHYSICAL EXAM: VITAL SIGNS: Reviewed. GENERAL: Well-developed in no acute distress. HEENT: Head is normocephalic. Pupils are equal, round. Sclerae anicteric. Mucous membranes of the mouth are moist. Neck supple. No JVD or thyromegaly LUNGS: Respirations even and unlabored. Decreased air entry on right side. Normal breath sounds on left. Frequent coughing noted during examination HEART: Irregular rate and rhythm. S1 and S2 heard. ABDOMEN: Soft. Nondistended. Nontender. EXTREMITIES: Normal range of motion. No clubbing or cyanosis. Peripheral pulses intact. 2-3+ bilateral lower extremity edema, worse at the ankles NEUROLOGIC: Awake and alert. Oriented x 3. ASSESSMENT: Shortness of breath Pulmonary embolism Acute on chronic heart failure with preserved EF, 50 to 55%, mainly right sided heart failure Right lower lobe lobectomy, September 29, 2023 Paroxysmal atrial fibrillation History of Watchman device History of cardioversion x 1 Moderate pulmonary hypertension Coronary artery disease with previous stenting, details unknown Hypertension Hyperlipidemia PLAN: 2D echo obtained and reviewed Resume home cardiac medications Patient currently on IV heparin. Will defer anticoagulation to pulmonary services Give 1 dose of IV Lasix 40 mg Continue telemetry monitoring Vascular surgery evaluated patient this morning. Not a candidate for EKOS. Further recommendations pending patient course Nurse practitioner note has been reviewed by physician. Signing provider agrees with the documented findings, assessment, and plan of care documented by [employer]ILING [employer]SE HAND as a scribe. Past Medical History Past Medical History: Atrial Fibrillation, Coronary Artery Disease (CAD), Cancer, Eye Disorder, GI Bleed, Hyperlipidemia, Hypertension, Pneumonia, Skin Disorder, Sleep Apnea/CPAP/BIPAP, Vascular Disorder Additional Past Medical History / Comment(s): dx of lung CA Aug 2023, pneumonia Sep 2023, recent dx hemoptysis-post bronchoscopy- Sep 2023, pt states he is still coughing up blood but "It's a lot less.", back pain-increased pain with walking,Vertigo, hiatal hernia, gout, eczema, bleeds easily, uses cpap, history of prostate cancer, cataract lt eye, "I have circulation issues with my legs." "My mail teller said we were going to deal with my lungs first before worrying about my legs.", pt reports swelling to bilat legs due to "I injured them falling off a ladder and my legs got stuck in ladder." History of Any Multi-Drug Resistant Organisms: None Reported Past Surgical History: Cholecystectomy, Heart Catheterization With Stent, Orthopedic Surgery, Prostate Surgery Additional Past Surgical History / Comment(s): Recent Bronchoscopy Aug 2023, Exploratory Abdominal Surgery; ORIF titanium/screws in LT Ankle. REPAIR BICEP TENDON LT ARM. RT CATARACT. STENTS X2. cyst removed from under chin, prostate surgery with 44 radiation txs, Watchman procedure, R lung lower lobectomy 09/28 Past Anesthesia/Blood Transfusion Reactions: Previous Problems w/ Anesthesia Additional Past Anesthesia/Blood Transfusion Reaction / Comment(s): DEVELOPED AFIB AFTER CATARACT SURG 2013. No hx of blood transfusions. Date of Last Stent Placement:: 2013 Past Psychological History: No Psychological Hx Reported Smoking Status: Former smoker Past Alcohol Use History: None Reported Past Drug Use History: None Reported - Past Family History Mother Family Medical History: Coronary Artery Disease (CAD), Myocardial Infarction ([place]) Additional Family Medical History / Comment(s): from myocardial infarction at 69 years old Father Family Medical History: Coronary Artery Disease (CAD), Myocardial Infarction ([place]) Additional Family Medical History / Comment(s): from myocardial infarction at 69 years old Medications and Allergies Home Medications Medication Instructions Recorded Confirmed Type Clopidogrel Bisulfate [Plavix] 75 mg PO HS 09/03/17 02/14/24 History Ranolazine [Ranexa] 500 mg PO HS 09/03/17 02/14/24 History Colchicine 0.6 mg PO DAILY 08/30/23 02/14/24 History allopurinoL [Zyloprim] 300 mg PO DAILY 08/30/23 02/14/24 History Spironolactone [Aldactone] 25 mg PO DAILY 11/18/23 02/14/24 History Capmatinib Hydrochloride [Tabrecta] 200 mg PO BID 02/14/24 02/14/24 History Isosorbide Mononitrate ER [Imdur] 60 mg PO DAILY 02/14/24 02/14/24 History Metoprolol Tartrate [Lopressor] 50 mg PO HS 02/14/24 02/14/24 History Omeprazole 40 mg PO HS 02/14/24 02/14/24 History Potassium Chloride ER [K-Dur 10] 10 meq PO HS 02/14/24 02/14/24 History lisinopriL [Zestril] 10 mg PO BID 02/14/24 02/14/24 History Allergies Allergy/AdvReac Type Severity Reaction Status Date / Time capecitabine Allergy Rash/Hives Verified 02/14/24 21:21 cortisone [Cortisone] Allergy Swelling Verified 02/14/24 21:21 and itching surgical tape Allergy "Broke Uncoded 02/14/24 21:21 out" "Got infection" Physical Exam Vitals: Vital Signs Temp Pulse Resp BP Pulse Ox 02/15/24 08:33 84 20 141/53 96 02/15/24 07:43 99 02/15/24 06:00 73 16 136/73 99 02/15/24 05:00 79 14 145/76 99 02/15/24 04:00 81 16 121/79 97 02/15/24 03:00 84 17 124/85 98 02/15/24 02:00 76 17 126/60 98 02/15/24 01:29 75 16 126/72 99 02/15/24 00:12 76 17 120/63 99 02/14/24 22:55 83 17 150/72 98 02/14/24 21:18 81 16 144/130 99 02/14/24 20:14 84 14 146/109 100 02/14/24 20:05 22 02/14/24 18:04 98.5 F 87 18 130/73 97 Intake and Output 02/14/24 02/15/24 02/15/24 22:59 06:59 14:59 Intake Total 144.445 Balance 144.445 Intake: Intake, IV Titration 144.445 Amount Heparin Sod,Pork in 0.45% 144.445 NaCl 25,000 unit In 0.45 % NaCl 1 250ml.bag @ 18 UNITS/KG/HR 19.432 mls/hr IV .[id number] [facility] Rx#: [id number] Other: Weight 107.955 kg Results 02/15/24 06:00 02/15/24 06:00 Cardiac Enzymes 02/14/24 02/14/24 02/15/24 Range/Units 19:58 19:58 00:02 AST 34 (17-59) U/L Troponin I <0.012 <0.012 (0.000-0.034) ng/mL 02/15/24 02/15/24 Range/Units 01:54 06:00 AST 30 (17-59) U/L Troponin I <0.012 (0.000-0.034) ng/mL Coagulation 02/14/24 02/15/24 Range/Units 19:58 01:54 PT 12.5 (10.0-12.5) sec APTT 25.6 >200.0 H* (22.0-30.0) sec CBC 02/14/24 02/15/24 Range/Units 19:58 06:00 WBC 7.4 7.4 (3.8-10.6) k/uL RBC 5.54 5.30 (4.30-5.90) m/uL Hgb 15.7 14.8 (13.0-17.5) gm/dL Hct 47.0 45.8 (39.0-53.0) % Plt Count 261 233 (150-450) k/uL Comprehensive Metabolic Panel 02/14/24 02/15/24 Range/Units 19:58 06:00 Sodium 129 L 129 L (137-145) mmol/L Potassium 4.5 4.5 (3.5-5.1) mmol/L Chloride 97 L 103 (98-107) mmol/L Carbon Dioxide 28 23 (22-30) mmol/L BUN 16 15 (9-20) mg/dL Creatinine 0.85 0.75 (0.66-1.25) mg/dL Glucose 112 H 119 H (74-99) mg/dL Calcium 8.7 8.3 L (8.4-10.2) mg/dL AST 34 30 (17-59) U/L ALT 25 22 (4-49) U/L Alkaline Phosphatase 99 88 (38-126) U/L Total Protein 6.6 5.7 L (6.3-8.2) g/dL Albumin 3.9 3.3 L (3.5-5.0) g/dL Current Medications Generic Name Dose Route Start Last Admin Trade Name Freq PRN Reason Stop Dose Admin Heparin Sodium (Porcine) 0 unit 02/14/24 19:47 Heparin Sodium 1,000 Un/Ml (10ml Vl) IV PER PROTOCOL PRN Low PTT Protocol Heparin Sodium/Sodium Chloride 250 mls @ 19.432 mls/hr 02/14/24 20:00 02/15/24 07:53 25,000 unit/ Sodium Chloride IV Not Given .[id number] XIMENA Protocol 18 UNITS/KG/HR Morphine Sulfate 2 mg 02/14/24 21:18 Morphine Sulfate 2 Mg/Ml Syringe IVP Q4HR PRN Moderate Pain (Scale 4 to 6) Morphine Sulfate 4 mg 02/14/24 21:49 Morphine Sulfate 4 Mg/Ml Syringe IV Q4HR PRN Severe Pain (Scale 7 to 10) Naloxone HCl 0.2 mg 02/14/24 21:49 Naloxone 0.4 Mg/Ml 1 Ml Vial IV Q2M PRN Opioid Reversal Nystatin 500,000 unit 02/14/24 22:00 02/15/24 08:28 Nystatin 100,000 Unit/Ml Susp 500,000 Unit/5 Ml Cup PO 500,000 unit QID XIMENA Administration Protocol Ondansetron HCl 4 mg 02/14/24 21:18 Ondansetron 4 Mg/2 Ml Vial IVP Q6HR PRN Nausea And Vomiting Pantoprazole Sodium 40 mg 02/15/24 09:00 02/15/24 08:29 Pantoprazole 40 Mg/10 Ml Vial IV 40 mg DAILY XIMENA Administration Intake and Output 02/14/24 02/15/24 02/15/24 22:59 06:59 14:59 Intake Total 144.445 Balance 144.445 Intake: Intake, IV Titration 144.445 Amount Heparin Sod,Pork in 0.45% 144.445 NaCl 25,000 unit In 0.45 % NaCl 1 250ml.bag @ 18 UNITS/KG/HR 19.432 mls/hr IV .[id number] [facility] Rx#: [id number] Other: Weight 107.955 kg 02/15/24 06:00 02/15/24 06:00
--- NOTE | 2024-02-15 12:13 | HP ---
HISTORY AND PHYSICAL HISTORY OF PRESENT ILLNESS: This is an 83-year-old white male, came in to the hospital with a positive pulmonary embolism on a PET scan that was done yesterday. He was admitted to the hospital. Started on IV heparin, came in with shortness of breath. CT of the chest shows positive pulmonary embolism, right middle and lower lobe and partial right pneumonectomy. The patient has been fighting cancer. He had just finished his radiation for his lung cancer. He is supposed to be starting chemotherapy in about 2 weeks status post pneumonectomy. He has a history of atrial fibrillation. HOME MEDICINES: 1. Plavix 75 daily. 2. Ranexa 500 daily. 3. Colchicine 0.6 daily. 4. Zyloprim 300 daily. 5. Aldactone 25 daily. 6. Tabrecta 200 b.i.d. 7. Imdur 60 daily. 8. Lopressor 50 daily. 9. Omeprazole 40 daily. 10.Potassium chloride 10 mEq daily. 11.Zestril 10 b.i.d. 12.DuoNeb q.i.d. 13.Oxygen 24 hours a day. ALLERGIES: Please see list. PAST MEDICAL HISTORY: Atrial fibrillation, coronary artery disease, cancer, eye disorder, hypertension, dyslipidemia, pneumonia, sleep apnea. Further history as above. FAMILY HISTORY: Coronary disease in the family, mom and dad. REVIEW OF SYSTEMS: A 14-point review of system, worsening respiratory distress, shortness of breath, increase stridor. PHYSICAL EXAMINATION: GENERAL: He is in respiratory distress. He looks weak and fatigued, slightly anxious secondary to breathing. VITAL SIGNS: Reviewed. Blood pressure 144/113 in the ER, temp 98, pulse 86, respiratory rate 16 to 18. PSYCH: Normal. SKIN: Warm and dry. GI: Distended obesity. CARDIOVASCULAR: Irregularly irregular rhythm. S1, S2. LUNGS: Clear. Scattered rhonchi and wheeze. HEENT: Normocephalic, atraumatic. NEUROLOGIC: Alert and oriented x3. He has a history of cataracts stents x2. Recent bronchoscopy in August 2023. ASSESSMENT: Acute pulmonary embolisms. Discussed with the ER. Admit the patient. Start on high- dose blood thinners. Troponins negative. Hematology Oncology consult as mentioned. Prognosis guarded. MMODL / IJN: [id number] /
[2024-02-15] MEDS: MORPHINE SULFATE 2 MG/ML SYRINGE IVP PRN (13:15)
[2024-02-15] MEDS: tiZANidine 4 MG TAB PO PRN (13:41)
--- NOTE | 2024-02-15 14:31 | PN ---
PROGRESS NOTE SUBJECTIVE: This is an 83-year-old white male who has been on IV heparin for 24 hours for pulmonary embolism of right middle and lower lobe. He is breathing better today. Hemoglobin is normal, white count 7.8, hemoglobin 14.8. He is on heparin drip. He has low sodium 129 again became some fluids overnight. He is possibly dehydrated. BNP is not severely elevated, sugars are low 100. Bilirubin is normal. Troponins are negative x3. Albumin 3.3. Acute GI distention. ASSESSMENT: Pulmonary embolism right lower lobe, right middle lobe. Hyponatremia, lung cancer status post radiation treatment, possible dehydration, acute on chronic respiratory failure, much improved since last night. PROGNOSIS: Guarded. MMODL / IJN: [id number] /
--- NOTE | 2024-02-15 15:13 | P.CNPUL ---
History of Present Illness Consult date: 02/15/24 Reason for consult: dyspnea, pulmonary embolism History of present illness: This is a 83-year-old male patient with metastatic pulmonary adenocarcinoma the patient is currently Terbecta. Noted the patient has undergone a previous right lower lobe resection and this was performed on 09/29/2023. Subsequently, his disease was found to be metastatic and based on the most recent PET/CT that was done on 12/31/2023, the patient had diffuse metastases involving the skeletal system and soft tissue metastatic deposit as discussed on the PET CT. 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 This was compatible also by an MRI finding that was done on 01/07/2024. The patient was accordingly treated by radiation therapy. Patient came into the emergency department yesterday because of worsening shortness of breath. A CT of the chest was done and the patient was found to have a filling defect involving the right middle lobe and right lower lobe pulmonary artery. There is also mild enlargement of the pulmonary trunk and cardiomegaly and additional smaller segmental embolism of the left lower lobe pulmonary artery. Scarring and atelectatic changes was present in the right hilum and infrahilar area. Previously described pulmonary nodule in the right has shrunk in size from 11 mm to 8 mm in size. There is a small right-sided pleural effusion. There is evidence of bony metastases involving the right anterior second rib that is slightly improved. However, there was a new pathologic healing/nondisplaced fracture of the right lateral sixth rib. At this point in time, the patient is hemodynamically stable on 2 L of oxygen by nasal cannula. The venous Doppler of the lower extremity was negative. Echocardiogram was completed and the patient was found to have a preserved LV function, RV was severely dilated and the patient has moderate degree of pulm hypertension with a PA pressure of around 50. Nevertheless, the patient's pulmonary hypertension is essentially chronic and a previous identified systolic pressure based on echocardiogram from 10/22/2023 was 66. Troponins are nonelevated. The patient's proBNP level is 1110. No hemoptysis. No pleurisy. Review of Systems CONSTITUTIONAL: Denies any recent significant weight loss or weight gain. EYES: Denies change in vision. EARS, NOSE, MOUTH, THROAT: Denies headaches, denies sore throat. CARDIOVASCULAR: Denies chest pain, palpitations or syncopal episodes. RESPIRATORY: Positive for shortness of breath, no cough, congestion or hemoptysis. GASTROINTESTINAL: Denies change in appetite, denies abdominal pain GENITOURINARY: Denies hematuria, denies infections. MUSKULOSKELETAL: Positive for lower extremity swelling. INTEGUMENTARY: Denies rash, denies eczema. NEUROLOGICAL: Denies recent memory loss, no recent seizure activity. PSYCHIATRIC: Denies anxiety, denies depression. HEMATOLOGIC/LYMPHATIC: Denies anemia, denies enlarged lymph nodes. Past Medical History Past Medical History: Atrial Fibrillation, Coronary Artery Disease (CAD), C ancer, Eye Disorder, GI Bleed, Hyperlipidemia, Hypertension, Pneumonia, Skin Disorder, Sleep Apnea/CPAP/BIPAP, Vascular Disorder Additional Past Medical History / Comment(s): dx of lung CA Aug 2023, pneumonia Sep 2023, recent dx hemoptysis-post bronchoscopy- Sep 2023, pt states he is still coughing up blood but "It's a lot less.", back pain-increased pain with walking,Vertigo, hiatal hernia, gout, eczema, bleeds easily, uses cpap, history of prostate cancer, cataract lt eye, "I have circulation issues with my legs." "My semiconductor lab technician said we were going to deal with my lungs first before worrying about my legs.", pt reports swelling to bilat legs due to "I injured them falling off a ladder and my legs got stuck in ladder." History of Any Multi-Drug Resistant Organisms: None Reported Past Surgical History: Cholecystectomy, Heart Catheterization With Stent, Orthopedic Surgery, Prostate Surgery Additional Past Surgical History / Comment(s): Recent Bronchoscopy Aug 2023, Exploratory Abdominal Surgery; ORIF titanium/screws in LT Ankle. REPAIR BICEP TENDON LT ARM. RT CATARACT. STENTS X2. cyst removed from under chin, prostate surgery with 44 radiation txs, Watchman procedure, R lung lower lobectomy 09/28 Past Anesthesia/Blood Transfusion Reactions: Previous Problems w/ Anesthesia Additional Past Anesthesia/Blood Transfusion Reaction / Comment(s): DEVELOPED AFIB AFTER CATARACT SURG 2013. No hx of blood transfusions. Date of Last Stent Placement:: 2013 Past Psychological History: No Psychological Hx Reported Smoking Status: Former smoker Past Alcohol Use History: None Reported Past Drug Use History: None Reported - Past Family History Mother Family Medical History: Coronary Artery Disease (CAD), Myocardial Infarction ([place]) Additional Family Medical History / Comment(s): from myocardial infarction at 69 years old Father Family Medical History: Coronary Artery Disease (CAD), Myocardial Infarction ([place]) Additional Family Medical History / Comment(s): from myocardial infarction at 69 years old Medications and Allergies Home Medications Medication Instructions Recorded Confirmed Type Clopidogrel Bisulfate [Plavix] 75 mg PO HS 09/03/17 02/14/24 History Ranolazine [Ranexa] 500 mg PO HS 09/03/17 02/14/24 History Colchicine 0.6 mg PO DAILY 08/30/23 02/14/24 History allopurinoL [Zyloprim] 300 mg PO DAILY 08/30/23 02/14/24 History Spironolactone [Aldactone] 25 mg PO DAILY 11/18/23 02/14/24 History Capmatinib Hydrochloride [Tabrecta] 200 mg PO BID 02/14/24 02/14/24 History Isosorbide Mononitrate ER [Imdur] 60 mg PO DAILY 02/14/24 02/14/24 History Metoprolol Tartrate [Lopressor] 50 mg PO HS 02/14/24 02/14/24 History Omeprazole 40 mg PO HS 02/14/24 02/14/24 History Potassium Chloride ER [K-Dur 10] 10 meq PO HS 02/14/24 02/14/24 History lisinopriL [Zestril] 10 mg PO BID 02/14/24 02/14/24 History Allergies Allergy/AdvReac Type Severity Reaction Status Date / Time capecitabine Allergy Rash/Hives Verified 02/14/24 21:21 cortisone [Cortisone] Allergy Swelling Verified 02/14/24 21:21 and itching surgical tape Allergy "Broke Uncoded 02/14/24 21:21 out" "Got infection" Physical Exam Vitals: Vital Signs Temp Pulse Resp BP Pulse Ox 02/15/24 13:02 93 18 140/71 95 02/15/24 11:46 107 H 02/15/24 11:26 106 H 02/15/24 08:33 84 20 141/53 96 02/15/24 07:43 99 02/15/24 06:00 73 16 136/73 99 02/15/24 05:00 79 14 145/76 99 02/15/24 04:00 81 16 121/79 97 02/15/24 03:00 84 17 124/85 98 02/15/24 02:00 76 17 126/60 98 02/15/24 01:29 75 16 126/72 99 02/15/24 00:12 76 17 120/63 99 02/14/24 22:55 83 17 150/72 98 02/14/24 21:18 81 16 144/130 99 02/14/24 20:14 84 14 146/109 100 02/14/24 20:05 22 02/14/24 18:04 98.5 F 87 18 130/73 97 Intake and Output 02/15/24 02/15/24 02/15/24 06:59 14:59 22:59 Intake Total 144.445 76.614 Output Total 600 Balance 144.445 -523.386 Intake: Intake, IV Titration 144.445 76.614 Amount Heparin Sod,Pork in 0.45% 144.445 76.614 NaCl 25,000 unit In 0.45 % NaCl 1 250ml.bag @ 18 UNITS/KG/HR 19.432 mls/hr IV .[id number] [facility] Rx#: [id number] Output: Urine 600 GENERAL EXAM: Alert, pleasant 83-year-old male, on 2 L of oxygen by nasal cannula, fairly comfortable in no apparent distress. HEAD: Normocephalic. EYES: Normal reaction of pupils, equal size. NOSE: Clear with pink turbinates. THROAT: No erythema or exudates. NECK: No masses, no JVD. CHEST: No chest wall deformity. LUNGS: Equal air entry with crackles in the right lung base. CVS: S1 and S2 normal with no audible murmur, regular rhythm. ABDOMEN: No hepatosplenomegaly, normal bowel sounds, no guarding or rigidity. SPINE: No scoliosis or deformity SKIN: No rashes CENTRAL NERVOUS SYSTEM: No focal deficits, tone is normal in all 4 extremities. EXTREMITIES: There is 1-2+ peripheral edema. No clubbing, no cyanosis. Peripheral pulses are intact. Results - Laboratory Findings CBC and BMP: 02/15/24 06:00 02/15/24 06:00 ABG WBC 7.4 k/uL (3.8-10.6) 02/15/24 06:00 RBC 5.30 m/uL (4.30-5.90) 02/15/24 06:00 Hgb 14.8 gm/dL (13.0-17.5) 02/15/24 06:00 Hct 45.8 % (39.0-53.0) 02/15/24 06:00 MCV 86.4 fL (80.0-100.0) 02/15/24 06:00 MCH 27.9 pg (25.0-35.0) 02/15/24 06:00 MCHC 32.3 g/dL (31.0-37.0) 02/15/24 06:00 RDW 18.8 % (11.5-15.5) H 02/15/24 06:00 Plt Count 233 k/uL (150-450) 02/15/24 06:00 MPV 7.5 02/15/24 06:00 Neutrophils % 79 % 02/14/24 19:58 Neutrophils % (Manual) 78 % 02/15/24 06:00 Lymphocytes % 8 % 02/14/24 19:58 Lymphocytes % (Manual) 6 % 02/15/24 06:00 Monocytes % 8 % 02/14/24 19:58 Monocytes % (Manual) 12 % 02/15/24 06:00 Eosinophils % 2 % 02/14/24 19:58 Eosinophils % (Manual) 4 % 02/15/24 06:00 Basophils % 0 % 02/14/24 19:58 Neutrophils # 5.9 k/uL (1.3-7.7) 02/14/24 19:58 Neutrophils # (Manual) 5.77 k/uL (1.3-7.7) 02/15/24 06:00 Lymphocytes # 0.6 k/uL (1.0-4.8) L 02/14/24 19:58 Lymphocytes # (Manual) 0.44 k/uL (1.0-4.8) L 02/15/24 06:00 Monocytes # 0.6 k/uL (0-1.0) 02/14/24 19:58 Monocytes # (Manual) 0.89 k/uL (0-1.0) 02/15/24 06:00 Eosinophils # 0.1 k/uL (0-0.7) 02/14/24 19:58 Eosinophils # (Manual) 0.30 k/uL (0-0.7) 02/15/24 06:00 Basophils # 0.0 k/uL (0-0.2) 02/14/24 19:58 Nucleated RBCs 0 /100 WBC (0-0) 02/15/24 06:00 Manual Slide Review Performed 02/15/24 06:00 Poikilocytosis Slight 02/15/24 06:00 Anisocytosis Slight 02/15/24 06:00 PT 12.5 sec (10.0-12.5) 02/14/24 19:58 INR 1.2 (<1.2) H 02/14/24 19:58 APTT 93.2 sec (22.0-30.0) H 02/15/24 08:27 Sodium 129 mmol/L (137-145) L 02/15/24 06:00 Potassium 4.5 mmol/L (3.5-5.1) 02/15/24 06:00 Chloride 103 mmol/L (98-107) 02/15/24 06:00 Carbon Dioxide 23 mmol/L (22-30) 02/15/24 06:00 Anion Gap 3 mmol/L 02/15/24 06:00 BUN 15 mg/dL (9-20) 02/15/24 06:00 Creatinine 0.75 mg/dL (0.66-1.25) 02/15/24 06:00 Est GFR (CKD-EPI)AfAm >90 (>60 ml/min/1.73 sqM) 02/15/24 06:00 Est GFR (CKD-EPI)NonAf 85 (>60 ml/min/1.73 sqM) 02/15/24 06:00 Glucose 119 mg/dL (74-99) H 02/15/24 06:00 Calcium 8.3 mg/dL (8.4-10.2) L 02/15/24 06:00 Phosphorus 3.2 mg/dL (2.5-4.5) 02/15/24 06:00 Magnesium 1.9 mg/dL (1.6-2.3) 02/15/24 06:00 Total Bilirubin 1.3 mg/dL (0.2-1.3) 02/15/24 06:00 AST 30 U/L (17-59) 02/15/24 06:00 ALT 22 U/L (4-49) 02/15/24 06:00 Alkaline Phosphatase 88 U/L (38-126) 02/15/24 06:00 Troponin I <0.012 ng/mL (0.000-0.034) 02/15/24 01:54 NT-Pro-B Natriuret Pep 1110 pg/mL 02/14/24 19:58 Total Protein 5.7 g/dL (6.3-8.2) L 02/15/24 06:00 Albumin 3.3 g/dL (3.5-5.0) L 02/15/24 06:00 PT/INR, D-dimer PT 12.5 sec (10.0-12.5) 02/14/24 19:58 INR 1.2 (<1.2) H 02/14/24 19:58 Abnormal lab findings: Abnormal Labs 02/14/24 02/14/24 02/14/24 19:58 19:58 19:58 RDW 18.7 H Lymphocytes # 0.6 L Lymphocytes # (Manual) INR 1.2 H APTT Sodium 129 L Chloride 97 L Glucose 112 H Calcium Total Bilirubin 1.8 H Total Protein Albumin 02/15/24 02/15/24 02/15/24 01:54 06:00 06:00 RDW 18.8 H Lymphocytes # Lymphocytes # (Manual) 0.44 L INR APTT >200.0 H* Sodium 129 L Chloride Glucose 119 H Calcium 8.3 L Total Bilirubin Total Protein 5.7 L Albumin 3.3 L 02/15/24 08:27 RDW Lymphocytes # Lymphocytes # (Manual) INR APTT 93.2 H Sodium Chloride Glucose Calcium Total Bilirubin Total Protein Albumin - Diagnostic Findings Chest x-ray: image reviewed CT scan - chest: image reviewed Assessment and Plan Plan: Pulmonary embolism, likely acute and the patient has a filling defect at the right lower lobe pulmonary artery branch in addition to subsegmental filling defect on the left. Doppler lower extremities are negative. Troponins are nonelevated. proBNP is elevated and the patient has chronic pulmonary hypertension without any interval worsening in the PA pressures based on a previous echocardiogram that was done in October 2023. Hemodynamically stable currently on 2 L of oxygen by nasal cannula. 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 Previous history of a right lower lobectomy for non-small cell lung cancer Coronary artery disease with previous cardiac catheterization and stenting COPD Chronic atrial fibrillation the patient has a watchman's device Previous history of GI bleed Hypertension Hyperlipidemia Obstructive sleep apnea Previous history of prostate cancer Plan Discussed the case with vascular surgery. Not a candidate for clot thrombectomy or tPA thrombolysis. Will continue anticoagulation with IV heparin Monitor hemodynamics Monitor hemoglobin Watch for any signs of bleeding Will likely require long-term anticoagulation the patient will be transition to oral anticoagulants for the next 24 to 48 hours
[2024-02-15] MEDS: MIDODRINE 5 MG TAB PO SCH (15:40)
[2024-02-15] MEDS: SODIUM CHLORIDE 0.9% 500 ML 500 ML IV ONE (15:40)
[2024-02-15] MEDS: MONTELUKAST 10 MG TAB PO SCH (20:40)
[2024-02-15] MEDS: METOPROLOL TARTRATE 50 MG TAB PO SCH (20:40)
[2024-02-15] MEDS: RANOLAZINE 500 MG TAB.ER.12H PO SCH (20:40)
[2024-02-15] MEDS ORDERED: NON FORMULARY DRUG (Omeprazole [Omeprazole] 40 MG Capsule.Dr) PO SCH (21:00)
[2024-02-15] MEDS: CAPMATINIB HYDROCHLORIDE 200 MG PO SCH (22:18)
[2024-02-16] MEDS: MIDODRINE 5 MG TAB PO ONE (08:08)
[2024-02-16] MEDS: SODIUM CHLORIDE 0.9% 500 ML 500 ML IV ONE (08:09)
--- NOTE | 2024-02-16 11:19 | P.PN ---
Progress Note - Text Progress Note Date: 02/15/24 Imaging reviewed, echo reviewed, previous surgical history and operative notes reviewed. At this point clinically I do not believe the patient would benefit from aggressive interventions. Plan to continue anticoagulation and monitor. Likely the area in the right pulmonary artery is postsurgical versus true embolus. Will continue to monitor.
[2024-02-16] MEDS: methylPREDNISolone SOD SUCCI 40 MG/ML 1 ML VIAL IV SCH (11:39)
[2024-02-16] MEDS: MIDODRINE 5 MG TAB PO SCH (11:39)
[2024-02-16 11:56] VITALS: BMI 29.0
--- NOTE | 2024-02-16 12:50 | P.PN ---
Subjective Progress Note Date: 02/16/24 Principal diagnosis: Pulmonary embolism Patient is seen and examined today as a follow-up. He currently has 3 L of nasal cannula on with oxygen saturations 93 to 98%, patient appears in no distress. He is reporting continuing coughing and bringing up bloody sputum that started this morning. He is not sure if it is because he has been bleeding from his mouth and lips due to his cancer. He is currently still on IV heparin. Objective - Vital Signs Vital signs: Vital Signs Temp 97.7 F 02/16/24 07:55 Pulse 80 02/16/24 11:00 Resp 17 02/16/24 07:55 BP 87/49 02/16/24 08:40 Pulse Ox 92 L 02/16/24 07:55 FiO2 Intake & Output 02/15/24 02/16/24 02/16/24 18:59 06:59 18:59 Intake Total 145.923 65.856 645.791 Output Total 600 Balance -454.077 65.856 645.791 Weight 107.955 kg Intake: Intake, IV Titration 145.923 65.856 105.791 Amount Heparin Sod,Pork in 0.45% 145.923 65.856 105.791 NaCl 25,000 unit In 0.45 % NaCl 1 250ml.bag @ 18 UNITS/KG/HR 19.432 mls/hr IV .[id number] [facility] Rx#: [id number] Oral 540 Output: Urine 600 Other: # Voids 1 - Exam General appearance: The patient is alert, oriented, appears in no acute distress. HET: Head is normocephalic and atraumatic. Pupils are equal and reactive. Neck: Supple. Heart: Regular. Lungs: Equal expansion, normal respiratory effort. Abdomen: Soft, nondistended. Extremities: Normal skin color and turgor. Neurological: No focal deficits. - Labs CBC & Chem 7: 02/15/24 06:00 02/15/24 06:00 Labs: Abnormal Lab Results - Last 24 Hours (Table) 02/15/24 02/15/24 02/16/24 Range/Units 15:34 21:47 09:17 APTT 87.7 H 86.4 H 39.4 H (22.0-30.0) sec Assessment and Plan Assessment: 1. Pulmonary embolism per CT angiogram report. Independently reviewed by Dr. Garcia who believes likely area in right pulmonary artery is postsurgical change versus true embolus. 2. Recent partial right pneumonectomy 3. Metastatic lung cancer 4. Atrial fibrillation 5. Coronary artery disease 6. Hyperlipidemia 7. Hypertension 8. Sleep apnea 9. Chronic pulmonary hypertension Plan: 1. May transition to oral anticoagulation of your choice 2. Pulmonology consulted, appreciate their recommendations 3. Patient is a poor surgical candidate for intervention. No planned vascular surgical intervention. 4. Rest of medical management per primary medical physician Thank you for this consultation, we will continue to follow The impression and plan of care has been dictated as directed. Dr. Garcia I performed a history and examination of this patient, discussed the same with the dictator. I agree with the dictator's note ,documented as a scribe. Any additional findings or plans will be noted.
--- NOTE | 2024-02-16 13:35 | P.PN ---
Subjective Progress Note Date: 02/16/24 This is a 83-year-old male patient with metastatic pulmonary adenocarcinoma the patient is currently Terbecta. Noted the patient has undergone a previous right lower lobe resection and this was performed on 09/29/2023. Subsequently, his disease was found to be metastatic and based on the most recent PET/CT that was done on 12/31/2023, the patient had diffuse metastases involving the skeletal system and soft tissue metastatic deposit as discussed on the PET CT. The patient also had a mass in his left fibre optics jointer space extending into the posterior left maxillary sinus. This was compatible also by an MRI finding that was done on 01/07/2024. The patient was accordingly treated by radiation therapy. Patient came into the emergency department yesterday because of worsening shortness of breath. A CT of the chest was done and the patient was found to have a filling defect involving the right middle lobe and right lower lobe pulmonary artery. There is also mild enlargement of the pulmonary trunk and cardiomegaly and additional smaller segmental embolism of the left lower lobe pulmonary artery. Scarring and atelectatic changes was present in the right hilum and infrahilar area. Previously described pulmonary nodule in the right has shrunk in size from 11 mm to 8 mm in size. There is a small right-sided pleural effusion. There is evidence of bony metastases involving the right anterior second rib that is slightly improved. However, there was a new pathologic healing/nondisplaced fracture of the right lateral sixth rib. At this point in time, the patient is hemodynamically stable on 2 L of oxygen by nasal cannula. The venous Doppler of the lower extremity was negative. Echocardiogram was completed and the patient was found to have a preserved LV function, RV was severely dilated and the patient has moderate degree of pulm hypertension with a PA pressure of around 50. Nevertheless, the patient's pulmonary hypertension is essentially chronic and a previous identified systolic pressure based on echocardiogram from 10/22/2023 was 66. Troponins are nonelevated. The patient's proBNP level is 1110. No hemoptysis. No pleurisy. This is a follow-up is being done on 02/16/2024 on this patient who got admitted yesterday to the hospital because of pulmonary embolism. The patient is currently on IV heparin. On today's evaluation, the patient is experiencing increased cough and congestion and some limited shortness of breath. The patient also encountered some hypotension overnight and the patient was given bolus of IV fluids 500 cc x 2. He is currently normotensive. I discussed the case with vascular surgery. The patient was not found to be a candidate for endovascular intervention including thrombolytics or clot thrombectomy. We decided to proceed with IV heparin for now.No fever. No chills. The patient remains hemodynamically stable. On today's evaluation, the patient is still on oxygen and the patient remains on O2 at 3 L/min nasal cannula. Echocardiogram was noted. Doppler of the lower extremities showed no evidence of any DVT. Objective - Vital Signs Vital signs: Vital Signs Temp 97.7 F 02/16/24 07:55 Pulse 73 02/16/24 07:55 Resp 17 02/16/24 07:55 BP 87/49 02/16/24 08:40 Pulse Ox 92 L 02/16/24 07:55 FiO2 Intake & Output 02/15/24 02/16/24 02/16/24 18:59 06:59 18:59 Intake Total 145.923 65.856 540 Output Total 600 Balance -454.077 65.856 540 Weight 107.955 kg Intake: Intake, IV Titration 145.923 65.856 Amount Heparin Sod,Pork in 0.45% 145.923 65.856 NaCl 25,000 unit In 0.45 % NaCl 1 250ml.bag @ 18 UNITS/KG/HR 19.432 mls/hr IV .[id number] COUNT INCLUDES THE [facility] Rx#: [id number] Oral 540 Output: Urine 600 Other: # Voids 1 - Exam GENERAL EXAM: Alert, pleasant 83-year-old male, on 3 L of oxygen by nasal cannula, fairly comfortable in no apparent distress. HEAD: Normocephalic. EYES: Normal reaction of pupils, equal size. NOSE: Clear with pink turbinates. THROAT: No erythema or exudates. NECK: No masses, no JVD. CHEST: No chest wall deformity. LUNGS: Equal air entry with crackles in the right lung base. CVS: S1 and S2 normal with no audible murmur, regular rhythm. ABDOMEN: No hepatosplenomegaly, normal bowel sounds, no guarding or rigidity. SPINE: No scoliosis or deformity SKIN: No rashes CENTRAL NERVOUS SYSTEM: No focal deficits, tone is normal in all 4 extremities. EXTREMITIES: There is 1-2+ peripheral edema. No clubbing, no cyanosis. Peripheral pulses are intact. - Labs CBC & Chem 7: 02/15/24 06:00 02/15/24 06:00 Labs: Abnormal Lab Results - Last 24 Hours (Table) 02/15/24 02/15/24 02/16/24 Range/Units 15:34 21:47 09:17 APTT 87.7 H 86.4 H 39.4 H (22.0-30.0) sec Assessment and Plan Plan: Pulmonary embolism, likely acute and the patient has a filling defect at the right lower lobe pulmonary artery branch in addition to subsegmental filling defect on the left. Doppler lower extremities are negative. Troponins are nonelevated. proBNP is elevated and the patient has chronic pulmonary hypertension without any interval worsening in the PA pressures based on a previous echocardiogram that was done in October 2023. Hemodynamically stable currently on oxygen at 3 L/min nasal cannula. The patient experienced increased cough and congestion. Consider development of pneumonia/aspiration. Acute hypoxic respiratory failure currently on 3L of O2 nasal cannula Metastatic adenocarcinoma of the lung currently on Tebrecta, the patient has metastatic deposits involving the skeletal system and the soft tissue in addition to left fibre optics jointer space extending to his sinus and the patient has been treated by radiation therapy to his left face/sinus area. Previous history of a right lower lobectomy for non-small cell lung cancer Coronary artery disease with previous cardiac catheterization and stenting COPD Chronic atrial fibrillation the patient has a watchman's device Previous history of GI bleed Hypertension Hyperlipidemia Obstructive sleep apnea Previous history of prostate cancer Plan Discussed the case with vascular surgery. Not a candidate for clot thrombectomy or tPA thrombolysis. Will obtain a follow-up chest x-ray today Start the patient on oral Augmentin Start the patient on Mucinex DM and continue bronchodilators and IV Solu-Medrol was added at a dose of 40 mg every 6 hours Will continue anticoagulation with IV heparin Monitor hemodynamics Monitor hemoglobin Watch for any signs of bleeding Continue IV heparin, hold on transitioning to oral anticoagulants at this point. Will continue to follow.
[2024-02-16] MEDS ORDERED: MIDODRINE 5 MG TAB PO PRN (15:29)
--- NOTE | 2024-02-16 15:32 | P.PN ---
Subjective Progress Note Date: 02/16/24 HISTORY OF PRESENT ILLNESS: This is a 83 year old male with a past medical history significant for permanent atrial fibrillation, cardioversion, coronary artery disease with previous stenting, hypertension, hyperlipidemia, and lung cancer with recent right lower lobe resection. Patient follows with Dr. Kuhn. We have been asked to see the patient in consultation for pulmonary embolism. Patient examined this morning in the emergency room. Patient states that he recently saw his primary care physician and was complaining of ongoing shortness of breath and patient was ordered to have a CTA on outpatient basis. Patient had CTA performed yesterday revealing pulmonary embolism and proximal right middle and/or lower lobe arteries, mildly enlarged pulmonary trunk, cardiomegaly, additional small segmental embolus in the left lower pulmonary artery, resection of right middle and/or lower lobes noted, presumed scarring and/or atelectasis in the right hilar and infrahilar region, previous 11 mm nodule in the right lung base now reduced measuring 8 mm, small right pleural effusion, moderate atherosclerotic calcifications. Patient was started on IV heparin. At the time of examination this morning patient continues to report shortness of breath. He does have a frequent cough during examination. He denies any chest pain or pressure. Bedside telemetry reveals atrial fibrillation with controlled ventricular rate. Patient is not anticoagulated on an outpatient basis secondary to history of Watchman device. Patient however denies having any issues in the past with bleeding. DIAGNOSTICS: - EKG reveals atrial fibrillation with left anterior fascicular block. Incomplete right bundle branch block. PVCs. - Venous Doppler: Negative for DVT bilaterally - Laboratory data: WBC 7.4. Hemoglobin 14.8. Platelet count 233. Sodium 129. Potassium 4.5. BUN 15. Creatinine 0.75. Troponin negative x 3. proBNP 1110. - Current home cardiac medications include Plavix 75 mg at night, Imdur 60 mg daily, metoprolol titrate 50 mg at night, Ranexa 500 mg at night, Aldactone 25 mg daily, lisinopril 10 mg twice a day. - Echocardiogram obtained on 10/08/2023 revealed ejection fraction 50 to 55%, moderate to severe pulmonary hypertension, mild mitral regurgitation, and moderate tricuspid regurgitation -Echocardiogram obtained this admission reveals ejection fraction 65 to 70%, severe right ventricular dilatation, moderate pulmonary hypertension, mild tricuspid regurgitation Progress note 02/16/2024 BP 96 over 54 mmHg. Heart rate 92 bpm. Patient denies any active chest pain chest pressure. PHYSICAL EXAM: VITAL SIGNS: Reviewed. GENERAL: Well-developed in no acute distress. HEENT: Head is normocephalic. Pupils are equal, round. Sclerae anicteric. Mucous membranes of the mouth are moist. Neck supple. No JVD or thyromegaly LUNGS: Respirations even and unlabored. Decreased air entry on right side. Normal breath sounds on left. Frequent coughing noted during examination HEART: Irregular rate and rhythm. S1 and S2 heard. ABDOMEN: Soft. Nondistended. Nontender. EXTREMITIES: Normal range of motion. No clubbing or cyanosis. Peripheral pulses intact. 2-3+ bilateral lower extremity edema, worse at the ankles NEUROLOGIC: Awake and alert. Oriented x 3. ASSESSMENT: Shortness of breath Pulmonary embolism Acute on chronic heart failure with preserved EF, 50 to 55%, mainly right sided heart failure Right lower lobe lobectomy, September 29, 2023 Paroxysmal atrial fibrillation History of Watchman device History of cardioversion x 1 Moderate pulmonary hypertension Coronary artery disease with previous stenting, details unknown Hypertension Hyperlipidemia PLAN: Patient is noticed to be slightly hypotensive at this time. I will discontinue patient's Imdur and Lasix. Continue aspirin 81 mg, metoprolol XL 50 mg daily, ranexa Due to low blood pressure, reduce lisinopril to 5 mg daily. Once blood pressure is more stable, resume current medical therapy for heart failure preserved ejection fraction and right-sided heart failure which would include lisinopril, low-dose torsemide, SGLT2, MRA Do not use midodrine as scheduled. Only use as needed for SBP less than 90 mmHg Patient currently on IV heparin. Transition to oral anticoagulation tomorrow. Objective - Vital Signs Vital signs: Vital Signs Temp 98.1 F 02/16/24 12:00 Pulse 84 02/16/24 15:03 Resp 18 02/16/24 12:00 BP 96/54 02/16/24 12:00 Pulse Ox 94 L 02/16/24 12:00 FiO2 Intake & Output 02/15/24 02/16/24 02/16/24 18:59 06:59 18:59 Intake Total 145.923 65.856 654.835 Output Total 600 Balance -454.077 65.856 654.835 Weight 107.955 kg 107.955 kg Intake: Intake, IV Titration 145.923 65.856 114.835 Amount Heparin Sod,Pork in 0.45% 145.923 65.856 114.835 NaCl 25,000 unit In 0.45 % NaCl 1 250ml.bag @ 18 UNITS/KG/HR 19.432 mls/hr IV .[id number] [facility] Rx#: [id number] Oral 540 Output: Urine 600 Other: # Voids 1 - Labs CBC & Chem 7: 02/15/24 06:00 02/15/24 06:00 Labs: Abnormal Lab Results - Last 24 Hours (Table) 02/15/24 02/15/24 02/16/24 Range/Units 15:34 21:47 09:17 APTT 87.7 H 86.4 H 39.4 H (22.0-30.0) sec
[2024-02-16] MEDS ORDERED: LACTULOSE 20 GM/30 ML CUP PO PRN (18:15)
--- NOTE | 2024-02-16 20:49 | PN ---
PROGRESS NOTE SUBJECTIVE: Den Bull is admitted for acute pulmonary embolism. Vascular is unsure versus whether it was there on admission or after the lung surgery. He is on IV heparin. Will switch him to oral anticoagulation in a day or 2. He had orthostatic hypotension, dizziness, near falls twice. Started midodrine temporarily, given him fluid boluses. While we cut his blood pressure pills down, now he is on a statin. Blood pressure is low 100s without Lasix without Imdur and cutting his lisinopril to 5. We will watch overnight, cut back his ProAmatine to 2.5, and possibly wean him off that if he is not orthostatic prior to discharge and after we switch him to oral anticoagulants, he looks more alert, more with it. He is on oxygen. OBJECTIVE: CARDIOVASCULAR: S1, S2. He is feeling better. LUNGS: Transmitted upper sounds. GI: Soft. HEMATOLOGY: Negative for Homans. ASSESSMENT: Pulmonary embolism, COPD, lung cancer status post pneumonectomy, pulmonary hypertension, nicotine addition, possibly transitional anticoagulants. Start him on home medications for possible infection. He is on steroids for his breathing. Continue breathing treatments, etc. The patient is improving. Prognosis guarded. MMODL / IJN: [id number] /
[2024-02-16] MEDS ORDERED: lisinopriL 5 MG TAB PO SCH (21:00)
[2024-02-16] MEDS: AMOXIC-POT CLAV 875-125MG 1 EACH TAB PO SCH (21:06)
[2024-02-16] MEDS: guaiFENesin-DM 600/30MG 1 EACH TAB.ER.12H PO SCH (21:07)
[2024-02-17] MEDS: MIDODRINE 5 MG TAB PO SCH (06:49)
[2024-02-17] MEDS ORDERED: ISOSORBIDE MONONITRATE ER 30 MG TAB.ER.24H PO SCH (09:00)
[2024-02-17] MEDS ORDERED: SPIRONOLACTONE 25 MG TAB PO SCH (09:00)
[2024-02-17] MEDS: TAMSULOSIN 0.4 MG CAP.ER.24H PO SCH (09:29)
[2024-02-17] MEDS: lisinopriL 5 MG TAB PO SCH (09:29)
[2024-02-17] MEDS: METOPROLOL SUCCINATE (ER) 50 MG TAB.ER.24H PO SCH (09:29)
[2024-02-17] MEDS ORDERED: APIXABAN 5 MG TAB PO SCH (10:30)
[2024-02-17 10:32] LABS: Anisocytosis Slight; Basophils % (A) 0 %; Eosinophils % (A) 0 %; HGB 12.2 gm/dL (13.0-17.5); Hypochromasia Moderate; Lymphocytes # (A) 0.3 k/uL (1.0-4.8); Lymphocytes % (A) 2 %; MCH 27.3 pg (25.0-35.0); MCHC 30.5 g/dL (31.0-37.0); MCV 89.5 fL (80.0-100.0); Mean Platelet Volume 7.6; Monocytes # (A) 1.1 k/uL (0-1.0); Monocytes % (A) 7 %; Neutrophils # (A) 13.3 k/uL (1.3-7.7); Neutrophils % (A) 90 %; Platelet Count 170 k/uL (150-450); Poikilocytosis Slight; RBC 4.47 m/uL (4.30-5.90); WBC 14.8 k/uL (3.8-10.6)
[2024-02-17 10:37] LABS: ALT 17 U/L (4-49); AST 23 U/L (17-59); African American GFR (CKD) >90 (>60 ml/min/1.73 sqM); Albumin 2.7 g/dL (3.5-5.0); Alkaline Phosphatase 86 U/L (38-126); Anion Gap 6 mmol/L; Blood Urea Nitrogen 20 mg/dL (9-20); Calcium 7.7 mg/dL (8.4-10.2); Carbon Dioxide 23 mmol/L (22-30); Chloride 102 mmol/L (98-107); Glucose 156 mg/dL (74-99); Non-African American GFR(CKD) 81 (>60 ml/min/1.73 sqM); Potassium 5.2 mmol/L (3.5-5.1); Sodium 131 mmol/L (137-145); Total Bilirubin 1.2 mg/dL (0.2-1.3); Total Protein 4.8 g/dL (6.3-8.2)
[2024-02-17] MEDS: TORSEMIDE 20 MG TAB PO SCH (11:04)
[2024-02-17] MEDS: Apixaban Initiation Dose--VTE 5 MG TAB PO SCH (11:04)
--- NOTE | 2024-02-17 13:07 | P.PN ---
Subjective Progress Note Date: 02/17/24 Principal diagnosis: Pulmonary embolism Patient seen and examined today as a follow-up. He is sitting up in bed. States he is no longer having any bloody sputum. States he is feeling much better today. Currently denies any chest pain or shortness of breath. He remains on IV heparin drip as recommended per pulmonology. Objective - Vital Signs Vital signs: Vital Signs Temp 98.2 F 02/17/24 11:02 Pulse 75 02/17/24 11:02 Resp 20 02/17/24 11:02 BP 116/57 02/17/24 11:02 Pulse Ox 97 02/17/24 11:02 FiO2 Intake & Output 02/16/24 02/17/24 02/17/24 18:59 06:59 18:59 Intake Total 739.379 0121 250 Output Total 0 1150 250 Balance 834.835 -10 0 Weight 107.955 kg Intake: IV 10 Invasive Line 2 10 Intake, IV Titration 114.835 900 Amount Heparin Sod,Pork in 0.45% 114.835 NaCl 25,000 unit In 0.45 % NaCl 1 250ml.bag @ 18 UNITS/KG/HR 19.432 mls/hr IV .[id number] [facility] Rx#: [id number] Sodium Chloride 0.9% 1, 900 000 ml @ 75 mls/hr IV . [id number] [facility] Rx#:[id number] Oral 720 240 240 Output: Urine 0 1150 250 Uretheral (Garcia) 250 Stool 0 Other: Voiding Method Indwelling Catheter # Voids 0 # Bowel Movements 0 2 - Exam General appearance: The patient is alert, oriented, appears in no acute d istress. HET: Head is normocephalic and atraumatic. Pupils are equal and reactive. Neck: Supple. Heart: Regular. Lungs: Equal expansion, normal respiratory effort. Abdomen: Soft, nondistended. Extremities: Normal skin color and turgor. Neurological: No focal deficits. - Labs CBC & Chem 7: 02/17/24 08:44 02/17/24 08:44 Labs: Abnormal Lab Results - Last 24 Hours (Table) 02/16/24 02/17/24 02/17/24 Range/Units 15:37 08:44 08:44 WBC 14.8 H (3.8-10.6) k/uL Hgb 12.2 L (13.0-17.5) gm/dL MCHC 30.5 L (31.0-37.0) g/dL RDW 19.0 H (11.5-15.5) % Neutrophils # 13.3 H (1.3-7.7) k/uL Lymphocytes # 0.3 L (1.0-4.8) k/uL Monocytes # 1.1 H (0-1.0) k/uL APTT 57.2 H 42.5 H (22.0-30.0) sec Sodium (137-145) mmol/L Potassium (3.5-5.1) mmol/L Glucose (74-99) mg/dL Calcium (8.4-10.2) mg/dL Total Protein (6.3-8.2) g/dL Albumin (3.5-5.0) g/dL 02/17/24 Range/Units 08:44 WBC (3.8-10.6) k/uL Hgb (13.0-17.5) gm/dL MCHC (31.0-37.0) g/dL RDW (11.5-15.5) % Neutrophils # (1.3-7.7) k/uL Lymphocytes # (1.0-4.8) k/uL Monocytes # (0-1.0) k/uL APTT (22.0-30.0) sec Sodium 131 L (137-145) mmol/L Potassium 5.2 H (3.5-5.1) mmol/L Glucose 156 H (74-99) mg/dL Calcium 7.7 L (8.4-10.2) mg/dL Total Protein 4.8 L (6.3-8.2) g/dL Albumin 2.7 L (3.5-5.0) g/dL Assessment and Plan Assessment: 1. Pulmonary embolism per CT angiogram report. Independently reviewed by Dr. Garcia who believes likely area in right pulmonary artery is postsurgical change versus true embolus. 2. Recent partial right pneumonectomy 3. Metastatic lung cancer 4. Atrial fibrillation 5. Coronary artery disease 6. Hyperlipidemia 7. Hypertension 8. Sleep apnea 9. Chronic pulmonary hypertension Plan: 1. Anticoagulation per recommendations from pulmonology 2. Patient is a poor surgical candidate for intervention. No planned vascular surgical intervention. 3. Rest of medical management per primary medical physician Thank you for this consultation, we will sign off at this time. The impression and plan of care has been dictated as directed. Dr. Jara I performed a history and examination of this patient, discussed the same with the dictator. I agree with the dictator's note ,documented as a scribe. Any additional findings or plans will be noted.
--- NOTE | 2024-02-17 16:02 | P.PN ---
Subjective Progress Note Date: 02/17/24 This is a 83-year-old male patient with metastatic pulmonary adenocarcinoma the patient is currently Terbecta. Noted the patient has undergone a previous right lower lobe resection and this was performed on 09/29/2023. Subsequently, his disease was found to be metastatic and based on the most recent PET/CT that was done on 12/31/2023, the patient had diffuse metastases involving the skeletal system and soft tissue metastatic deposit as discussed on the PET CT. The patient also had a mass in his left warp spinner space extending into the posterior left maxillary sinus. This was compatible also by an MRI finding that was done on 01/07/2024. The patient was accordingly treated by radiation therapy. Patient came into the emergency department yesterday because of worsening shortness of breath. A CT of the chest was done and the patient was found to have a filling defect involving the right middle lobe and right lower lobe pulmonary artery. There is also mild enlargement of the pulmonary trunk and cardiomegaly and additional smaller segmental embolism of the left lower lobe pulmonary artery. Scarring and atelectatic changes was present in the right hilum and infrahilar area. Previously described pulmonary nodule in the right has shrunk in size from 11 mm to 8 mm in size. There is a small right-sided pleural effusion. There is evidence of bony metastases involving the right anterior second rib that is slightly improved. However, there was a new pathologic healing/nondisplaced fracture of the right lateral sixth rib. At this point in time, the patient is hemodynamically stable on 2 L of oxygen by nasal cannula. The venous Doppler of the lower extremity was negative. Echocardiogram was completed and the patient was found to have a preserved LV function, RV was severely dilated and the patient has moderate degree of pulm hypertension with a PA pressure of around 50. Nevertheless, the patient's pulmonary hypertension is essentially chronic and a previous identified systolic pressure based on echocardiogram from 10/22/2023 was 66. Troponins are nonelevated. The patient's proBNP level is 1110. No hemoptysis. No pleurisy. This is a follow-up is being done on 02/16/2024 on this patient who got admitted yesterday to the hospital because of pulmonary embolism. The patient is currently on IV heparin. On today's evaluation, the patient is experiencing increased cough and congestion and some limited shortness of breath. The patient also encountered some hypotension overnight and the patient was given bolus of IV fluids 500 cc x 2. He is currently normotensive. I discussed the case with vascular surgery. The patient was not found to be a candidate for endovascular intervention including thrombolytics or clot thrombectomy. We decided to proceed with IV heparin for now.No fever. No chills. The patient remains hemodynamically stable. On today's evaluation, the patient is still on oxygen and the patient remains on O2 at 3 L/min nasal cannula. Echocardiogram was noted. Doppler of the lower extremities showed no evidence of any DVT. 02/17/2024, I am seeing this patient for a follow-up. The patient is feeling better compared to yesterday. Less bronchospastic and wheezy and his chest examination is congested. The patient remains on IV heparin at this will be transition to anticoagulation with Eliquis. No significant complaints. Hemoptysis. No pleurisy. No chest pain. Cough and congestion and bronchospasm wheezing is improved significantly as the patient was started on a combination of bronchodilators, steroids and IV Solu-Medrol and Mucinex DM. White cell count of 14 with a hemoglobin 12 and a platelet count of 170. The BUN is at 20 with a creatinine of 0.8 and sodium is at 131 with a potassium level of 5.2. He is currently on oxygen 3 L with a pulse ox of 98%. Overall, improved compared to yesterday. Objective - Vital Signs Vital signs: Vital Signs Temp 98.2 F 02/17/24 11:02 Pulse 75 02/17/24 11:02 Resp 20 02/17/24 11:02 BP 116/57 02/17/24 11:02 Pulse Ox 97 02/17/24 11:02 FiO2 Intake & Output 02/16/24 02/17/24 02/17/24 18:59 06:59 18:59 Intake Total 672.200 6431 250 Output Total 0 1150 250 Balance 834.835 -10 0 Weight 107.955 kg Intake: IV 10 Invasive Line 2 10 Intake, IV Titration 114.835 900 Amount Heparin Sod,Pork in 0.45% 114.835 NaCl 25,000 unit In 0.45 % NaCl 1 250ml.bag @ 18 UNITS/KG/HR 19.432 mls/hr IV .[id number] [facility] Rx#: [id number] Sodium Chloride 0.9% 1, 900 000 ml @ 75 mls/hr IV . [id number] [facility] Rx#:[id number] Oral 720 240 240 Output: Urine 0 1150 250 Uretheral (Garcia) 250 Stool 0 Other: Voiding Method Indwelling Catheter # Voids 0 # Bowel Movements 0 2 - Exam GENERAL EXAM: Alert, pleasant 83-year-old male, on 3 L of oxygen by nasal cannula, fairly comfortable in no apparent distress. HEAD: Normocephalic. EYES: Normal reaction of pupils, equal size. NOSE: Clear with pink turbinates. THROAT: No erythema or exudates. NECK: No masses, no JVD. CHEST: No chest wall deformity. LUNGS: Equal air entry with crackles in the right lung base. CVS: S1 and S2 normal with no audible murmur, regular rhythm. ABDOMEN: No hepatosplenomegaly, normal bowel sounds, no guarding or rigidity. SPINE: No scoliosis or deformity SKIN: No rashes CENTRAL NERVOUS SYSTEM: No focal deficits, tone is normal in all 4 extremities. EXTREMITIES: There is 1-2+ peripheral edema. No clubbing, no cyanosis. Peripheral pulses are intact. - Labs CBC & Chem 7: 02/17/24 08:44 02/17/24 08:44 Labs: Abnormal Lab Results - Last 24 Hours (Table) 02/16/24 02/17/24 02/17/24 Range/Units 15:37 08:44 08:44 WBC 14.8 H (3.8-10.6) k/uL Hgb 12.2 L (13.0-17.5) gm/dL MCHC 30.5 L (31.0-37.0) g/dL RDW 19.0 H (11.5-15.5) % Neutrophils # 13.3 H (1.3-7.7) k/uL Lymphocytes # 0.3 L (1.0-4.8) k/uL Monocytes # 1.1 H (0-1.0) k/uL APTT 57.2 H 42.5 H (22.0-30.0) sec Sodium (137-145) mmol/L Potassium (3.5-5.1) mmol/L Glucose (74-99) mg/dL Calcium (8.4-10.2) mg/dL Total Protein (6.3-8.2) g/dL Albumin (3.5-5.0) g/dL 02/17/24 Range/Units 08:44 WBC (3.8-10.6) k/uL Hgb (13.0-17.5) gm/dL MCHC (31.0-37.0) g/dL RDW (11.5-15.5) % Neutrophils # (1.3-7.7) k/uL Lymphocytes # (1.0-4.8) k/uL Monocytes # (0-1.0) k/uL APTT (22.0-30.0) sec Sodium 131 L (137-145) mmol/L Potassium 5.2 H (3.5-5.1) mmol/L Glucose 156 H (74-99) mg/dL Calcium 7.7 L (8.4-10.2) mg/dL Total Protein 4.8 L (6.3-8.2) g/dL Albumin 2.7 L (3.5-5.0) g/dL Assessment and Plan Plan: Pulmonary embolism, likely acute and the patient has a filling defect at the right lower lobe pulmonary artery branch in addition to subsegmental filling defect on the left. Doppler lower extremities are negative. Troponins are nonelevated. proBNP is elevated and the patient has chronic pulmonary hype rtension without any interval worsening in the PA pressures based on a previous echocardiogram that was done in October 2023. Hemodynamically stable currently on oxygen at 3 L/min nasal cannula. The patient remains on IV heparin. Increased cough congestion and wheezing, improved with bronchodilators and steroids and antibiotics. Overall respiratory status is improved considerably. Acute hypoxic respiratory failure currently on 3L of O2 nasal cannula Metastatic adenocarcinoma of the lung currently on Tebrecta, the patient has metastatic deposits involving the skeletal system and the soft tissue in addition to left warp spinner space extending to his sinus and the patient has been treated by radiation therapy to his left face/sinus area. Previous history of a right lower lobectomy for non-small cell lung cancer Coronary artery disease with previous cardiac catheterization and stenting COPD Chronic atrial fibrillation the patient has a watchman's device Previous history of GI bleed Hypertension Hyperlipidemia Obstructive sleep apnea Previous history of prostate cancer Plan Discussed the case with vascular surgery. Not a candidate for clot thrombectomy or tPA thrombolysis. Continue bronchodilators, oral Augmentin and Mucinex DM and IV Solu-Medrol. Will switch this patient to prednisone burst taper as of tomorrow Discontinued IV heparin and start the patient on anticoagulation with Eliquis Monitor hemodynamics Monitor hemoglobin Watch for any signs of bleeding Clinically much improved and will continue to follow.
--- NOTE | 2024-02-17 18:19 | P.PN ---
Subjective Progress Note Date: 02/17/24 HISTORY OF PRESENT ILLNESS: This is a 83 year old male with a past medical history significant for permanent atrial fibrillation, cardioversion, coronary artery disease with previous stenting, hypertension, hyperlipidemia, and lung cancer with recent right lower lobe resection. Patient follows with Dr. Kuhn. We have been asked to see the patient in consultation for pulmonary embolism. Patient examined this morning in the emergency room. Patient states that he recently saw his primary care physician and was complaining of ongoing shortness of breath and patient was ordered to have a CTA on outpatient basis. Patient had CTA performed yesterday revealing pulmonary embolism and proximal right middle and/or lower lobe arteries, mildly enlarged pulmonary trunk, cardiomegaly, additional small segmental embolus in the left lower pulmonary artery, resection of right middle and/or lower lobes noted, presumed scarring and/or atelectasis in the right hilar and infrahilar region, previous 11 mm nodule in the right lung base now reduced measuring 8 mm, small right pleural effusion, moderate atherosclerotic calcifications. Patient was started on IV heparin. At the time of examination this morning patient continues to report shortness of breath. He does have a frequent cough during examination. He denies any chest pain or pressure. Bedside telemetry reveals atrial fibrillation with controlled ventricular rate. Patient is not anticoagulated on an outpatient basis secondary to history of Watchman device. Patient however denies having any issues in the past with bleeding. DIAGNOSTICS: - EKG reveals atrial fibrillation with left anterior fascicular block. Incomplete right bundle branch block. PVCs. - Venous Doppler: Negative for DVT bilaterally - Laboratory data: WBC 7.4. Hemoglobin 14.8. Platelet count 233. Sodium 129. Potassium 4.5. BUN 15. Creatinine 0.75. Troponin negative x 3. proBNP 1110. - Current home cardiac medications include Plavix 75 mg at night, Imdur 60 mg daily, metoprolol titrate 50 mg at night, Ranexa 500 mg at night, Aldactone 25 mg daily, lisinopril 10 mg twice a day. - Echocardiogram obtained on 10/08/2023 revealed ejection fraction 50 to 55%, moderate to severe pulmonary hypertension, mild mitral regurgitation, and moderate tricuspid regurgitation -Echocardiogram obtained this admission reveals ejection fraction 65 to 70%, severe right ventricular dilatation, moderate pulmonary hypertension, mild tricuspid regurgitation Progress note 02/16/2024 BP 96 over 54 mmHg. Heart rate 92 bpm. Patient denies any active chest pain chest pressure. February 17, 2024 BP 120 over 60 mmHg, heart rate 70s to 80s beats per minute, normal sinus rhythm . PHYSICAL EXAM: VITAL SIGNS: Reviewed. GENERAL: Well-developed in no acute distress. HEENT: Head is normocephalic. Pupils are equal, round. Sclerae anicteric. Mucous membranes of the mouth are moist. Neck supple. No JVD or thyromegaly LUNGS: Respirations even and unlabored. Decreased air entry on right side. Normal breath sounds on left. Frequent coughing noted during examination HEART: Irregular rate and rhythm. S1 and S2 heard. ABDOMEN: Soft. Nondistended. Nontender. EXTREMITIES: Normal range of motion. No clubbing or cyanosis. Peripheral pulses intact. 2-3+ bilateral lower extremity edema, worse at the ankles NEUROLOGIC: Awake and alert. Oriented x 3. ASSESSMENT: Shortness of breath Pulmonary embolism Acute on chronic heart failure with preserved EF, 50 to 55%, mainly right sided heart failure Right lower lobe lobectomy, September 29, 2023 Paroxysmal atrial fibrillation History of Watchman device History of cardioversion x 1 Moderate pulmonary hypertension Coronary artery disease with previous stenting, details unknown Hypertension Hyperlipidemia PLAN: Patient is noticed to be slightly hypotensive at this time. I will discontinue patient's Imdur and Lasix. Continue aspirin 81 mg, metoprolol XL 50 mg daily, ranexa Due to low blood pressure, reduce lisinopril to 5 mg daily. Once blood pressure is more stable, resume current medical therapy for heart failure preserved ejection fraction and right-sided heart failure which would include lisinopril, low-dose torsemide, SGLT2, MRA Do not use midodrine as scheduled. Only use as needed for SBP less than 90 mmHg Patient currently on IV heparin. Transition to oral anticoagulation tomorrow. Objective - Vital Signs Vital signs: Vital Signs Temp 98.7 F 02/17/24 09:15 Pulse 87 02/17/24 09:15 Resp 20 02/17/24 09:15 BP 125/58 02/17/24 09:15 Pulse Ox 98 02/17/24 09:15 FiO2 Intake & Output 02/16/24 02/17/24 02/17/24 18:59 06:59 18:59 Intake Total 017.461 1957 250 Output Total 0 1150 250 Balance 834.835 -10 0 Weight 107.955 kg Intake: IV 10 Invasive Line 2 10 Intake, IV Titration 114.835 900 Amount Heparin Sod,Pork in 0.45% 114.835 NaCl 25,000 unit In 0.45 % NaCl 1 250ml.bag @ 18 UNITS/KG/HR 19.432 mls/hr IV .[id number] [facility] Rx#: [id number] Sodium Chloride 0.9% 1, 900 000 ml @ 75 mls/hr IV . [id number] [facility] Rx#:[id number] Oral 720 240 240 Output: Urine 0 1150 250 Uretheral (Garcia) 250 Stool 0 Other: Voiding Method Indwelling Catheter # Voids 0 # Bowel Movements 0 2 - Labs CBC & Chem 7: 02/15/24 06:00 02/15/24 06:00 Labs: Abnormal Lab Results - Last 24 Hours (Table) 02/16/24 Range/Units 15:37 APTT 57.2 H (22.0-30.0) sec
[2024-02-17] MEDS: RANOLAZINE 500 MG TAB.ER.12H PO SCH (20:16)
--- NOTE | 2024-02-17 20:40 | PN ---
PROGRESS NOTE SUBJECTIVE: His blood pressure is 130/60, O2 is 98% on 3 L. Temperature 98, pulse 91, respiratory rate 16 to 18. Sodium 131, potassium 5.2, GFR is 81, creatinine is 2.7. Dr. Dye saw the patient and he is feeling much better. Denies any chest pain, shortness of breath. He is on IV heparin. OBJECTIVE: VITAL SIGNS: Blood pressure 116/57, O2 97, respiratory rate 18 to 20, pulse 75, and temp 98.2. NEUROLOGIC: Cranial nerves intact. Alert and oriented x3. LUNGS: Normal. HEART: S1, S2. NECK: Supple. Sodium 131, potassium 5.2, glucose 150s, albumin is 2.7. Pulmonary embolism possibly postsurgical metastatic lung cancer, recent right pressure pneumonectomy, atrial fibrillation, coronary disease, dyslipidemia, hypertension, sleep apnea, pulmonary hypertension, poor surgical candidate. He appears to be doing better, orthostatic hypotension is improved after weaning off medications. Appears to be stable. Possibly go home soon. He is on Augmentin for possibly bronchitis versus pneumonia scan. White count 14.8 sodium 131, which is up from 128, potassium 5.2. CONDITION: Stable. PROGNOSIS: Guarded. Please see further orders. MMODL / IJN: [id number] /
[2024-02-17] MEDS: CAPMATINIB HYDROCHLORIDE 200 MG PO SCH (23:01)
[2024-02-18] MEDS: DAPAGLIFLOZIN PROPANEDIOL 10 MG TABLET PO SCH (09:50)
[2024-02-18] MEDS: SPIRONOLACTONE 25 MG TAB PO SCH (09:50)
--- NOTE | 2024-02-18 10:46 | PN ---
PROGRESS NOTE SUBJECTIVE: The patient is improving daily. Orthostatic changes are over. OBJECTIVE: VITAL SIGNS: Blood pressure 150s over 80s, O2 97% on 3 L, temp 97.5, pulse 89, respiratory rate 16-18. CARDIOVASCULAR: S1, S2. LUNGS: Transmitted upper sounds. GI: Soft. LABORATORY DATA: White count 14.8, hemoglobin 12.2. He has been placed on Eliquis. Possibly get off heparin now. Albumin is 2.7 sodium 131, potassium 5.2. ASSESSMENT: 1. Pulmonary embolisms, status post lung cancer treatments, COPD, pulmonary hypertension, etc. 2. Coronary artery disease. 3. Still has leukocytosis with left shift. PLAN: Continue antibiotics. Prognosis guarded. PT/OT. Switch to oral anticoagulation. Please see further orders. MMODL / IJN: [id number] /
[2024-02-18 11:11] VITALS: BP 127/68; PULSE 88; RESP 20; TEMP 98
[2024-02-18] MEDS: SODIUM CHLORIDE 0.9% 1,000 ML IV SCH (11:11)
--- NOTE | 2024-02-18 15:48 | P.PN ---
Subjective Progress Note Date: 02/17/24 HISTORY OF PRESENT ILLNESS: This is a 83 year old male with a past medical history significant for permanent atrial fibrillation, cardioversion, coronary artery disease with previous stenting, hypertension, hyperlipidemia, and lung cancer with recent right lower lobe resection. Patient follows with Dr. Kuhn. We have been asked to see the patient in consultation for pulmonary embolism. Patient examined this morning in the emergency room. Patient states that he recently saw his primary care physician and was complaining of ongoing shortness of breath and patient was ordered to have a CTA on outpatient basis. Patient had CTA performed yesterday revealing pulmonary embolism and proximal right middle and/or lower lobe arteries, mildly enlarged pulmonary trunk, cardiomegaly, additional small segmental embolus in the left lower pulmonary artery, resection of right middle and/or lower lobes noted, presumed scarring and/or atelectasis in the right hilar and infrahilar region, previous 11 mm nodule in the right lung base now reduced measuring 8 mm, small right pleural effusion, moderate atherosclerotic calcifications. Patient was started on IV heparin. At the time of examination this morning patient continues to report shortness of breath. He does have a frequent cough during examination. He denies any chest pain or pressure. Bedside telemetry reveals atrial fibrillation with controlled ventricular rate. Patient is not anticoagulated on an outpatient basis secondary to history of Watchman device. Patient however denies having any issues in the past with bleeding. DIAGNOSTICS: - EKG reveals atrial fibrillation with left anterior fascicular block. Incomplete right bundle branch block. PVCs. - Venous Doppler: Negative for DVT bilaterally - Laboratory data: WBC 7.4. Hemoglobin 14.8. Platelet count 233. Sodium 129. Potassium 4.5. BUN 15. Creatinine 0.75. Troponin negative x 3. proBNP 1110. - Current home cardiac medications include Plavix 75 mg at night, Imdur 60 mg daily, metoprolol titrate 50 mg at night, Ranexa 500 mg at night, Aldactone 25 mg daily, lisinopril 10 mg twice a day. - Echocardiogram obtained on 10/08/2023 revealed ejection fraction 50 to 55%, moderate to severe pulmonary hypertension, mild mitral regurgitation, and moderate tricuspid regurgitation -Echocardiogram obtained this admission reveals ejection fraction 65 to 70%, severe right ventricular dilatation, moderate pulmonary hypertension, mild tricuspid regurgitation Progress note 02/16/2024 BP 96 over 54 mmHg. Heart rate 92 bpm. Patient denies any active chest pain chest pressure. February 17, 2024 BP 120 over 60 mmHg, heart rate 70s to 80s beats per minute, normal sinus rhythm . PHYSICAL EXAM: VITAL SIGNS: Reviewed. GENERAL: Well-developed in no acute distress. HEENT: Head is normocephalic. Pupils are equal, round. Sclerae anicteric. Mucous membranes of the mouth are moist. Neck supple. No JVD or thyromegaly LUNGS: Respirations even and unlabored. Decreased air entry on right side. Normal breath sounds on left. Frequent coughing noted during examination HEART: Irregular rate and rhythm. S1 and S2 heard. ABDOMEN: Soft. Nondistended. Nontender. EXTREMITIES: Normal range of motion. No clubbing or cyanosis. Peripheral pulses intact. 2-3+ bilateral lower extremity edema, worse at the ankles NEUROLOGIC: Awake and alert. Oriented x 3. ASSESSMENT: Shortness of breath Pulmonary embolism Acute on chronic heart failure with preserved EF, 50 to 55%, mainly right sided heart failure Right lower lobe lobectomy, September 29, 2023 Paroxysmal atrial fibrillation History of Watchman device History of cardioversion x 1 Moderate pulmonary hypertension Coronary artery disease with previous stenting, details unknown Hypertension Hyperlipidemia PLAN: Continue aspirin 81 mg, metoprolol XL 50 mg daily, ranexa 500mg BID Due to low blood pressure, reduce lisinopril to 5 mg daily. Discontinue IV heparin drip. Start Eliquis VTE dosing Continue torsemide 10 mg daily Consider adding SGLT2 and MRA tomorrow Do not use midodrine as scheduled. Only use as needed for SBP less than 90 mmHg Objective - Vital Signs Vital signs: Vital Signs Temp 98.0 F 02/17/24 15:35 Pulse 91 02/17/24 15:35 Resp 18 02/17/24 15:35 BP 130/60 02/17/24 15:35 Pulse Ox 98 02/17/24 15:35 FiO2 Intake & Output 02/16/24 02/17/24 02/17/24 18:59 06:59 18:59 Intake Total 271.197 3318 250 Output Total 0 1150 800 Balance 834.835 -10 -550 Weight 107.955 kg Intake: IV 10 Invasive Line 2 10 Intake, IV Titration 114.835 900 Amount Heparin Sod,Pork in 0.45% 114.835 NaCl 25,000 unit In 0.45 % NaCl 1 250ml.bag @ 18 UNITS/KG/HR 19.432 mls/hr IV .[id number] [facility] Rx#: [id number] Sodium Chloride 0.9% 1, 900 000 ml @ 75 mls/hr IV . [id number] [facility] Rx#:[id number] Oral 720 240 240 Output: Urine 0 1150 800 Uretheral (Garcia) 250 Stool 0 Other: Voiding Method Indwelling Catheter # Voids 0 # Bowel Movements 0 2 1 - Labs CBC & Chem 7: 02/17/24 08:44 02/17/24 08:44 Labs: Abnormal Lab Results - Last 24 Hours (Table) 02/17/24 02/17/24 02/17/24 Range/Units 08:44 08:44 08:44 WBC 14.8 H (3.8-10.6) k/uL Hgb 12.2 L (13.0-17.5) gm/dL MCHC 30.5 L (31.0-37.0) g/dL RDW 19.0 H (11.5-15.5) % Neutrophils # 13.3 H (1.3-7.7) k/uL Lymphocytes # 0.3 L (1.0-4.8) k/uL Monocytes # 1.1 H (0-1.0) k/uL APTT 42.5 H (22.0-30.0) sec Sodium 131 L (137-145) mmol/L Potassium 5.2 H (3.5-5.1) mmol/L Glucose 156 H (74-99) mg/dL Calcium 7.7 L (8.4-10.2) mg/dL Total Protein 4.8 L (6.3-8.2) g/dL Albumin 2.7 L (3.5-5.0) g/dL
--- NOTE | 2024-02-18 15:50 | P.PN ---
Subjective Progress Note Date: 02/18/24 HISTORY OF PRESENT ILLNESS: This is a 83 year old male with a past medical history significant for permanent atrial fibrillation, cardioversion, coronary artery disease with previous stenting, hypertension, hyperlipidemia, and lung cancer with recent right lower lobe resection. Patient follows with Dr. Kuhn. We have been asked to see the patient in consultation for pulmonary embolism. Patient examined this morning in the emergency room. Patient states that he recently saw his primary care physician and was complaining of ongoing shortness of breath and patient was ordered to have a CTA on outpatient basis. Patient had CTA performed yesterday revealing pulmonary embolism and proximal right middle and/or lower lobe arteries, mildly enlarged pulmonary trunk, cardiomegaly, additional small segmental embolus in the left lower pulmonary artery, resection of right middle and/or lower lobes noted, presumed scarring and/or atelectasis in the right hilar and infrahilar region, previous 11 mm nodule in the right lung base now reduced measuring 8 mm, small right pleural effusion, moderate atherosclerotic calcifications. Patient was started on IV heparin. At the time of examination this morning patient continues to report shortness of breath. He does have a frequent cough during examination. He denies any chest pain or pressure. Bedside telemetry reveals atrial fibrillation with controlled ventricular rate. Patient is not anticoagulated on an outpatient basis secondary to history of Watchman device. Patient however denies having any issues in the past with bleeding. DIAGNOSTICS: - EKG reveals atrial fibrillation with left anterior fascicular block. Incomplete right bundle branch block. PVCs. - Venous Doppler: Negative for DVT bilaterally - Laboratory data: WBC 7.4. Hemoglobin 14.8. Platelet count 233. Sodium 129. Potassium 4.5. BUN 15. Creatinine 0.75. Troponin negative x 3. proBNP 1110. - Current home cardiac medications include Plavix 75 mg at night, Imdur 60 mg daily, metoprolol titrate 50 mg at night, Ranexa 500 mg at night, Aldactone 25 mg daily, lisinopril 10 mg twice a day. - Echocardiogram obtained on 10/08/2023 revealed ejection fraction 50 to 55%, moderate to severe pulmonary hypertension, mild mitral regurgitation, and moderate tricuspid regurgitation -Echocardiogram obtained this admission reveals ejection fraction 65 to 70%, severe right ventricular dilatation, moderate pulmonary hypertension, mild tricuspid regurgitation Progress note 02/16/2024 BP 96 over 54 mmHg. Heart rate 92 bpm. Patient denies any active chest pain chest pressure. February 17, 2024 BP 120 over 60 mmHg, heart rate 70s to 80s beats per minute, normal sinus rhythm . February 18, 2024 Blood pressure 127/68, heart rate 88, hemoglobin 12, WBC is elevated at 14 from 02/17/24. No active signs of bleeding, kidney function is stable. Tolerating heart failure medications without any lightheadedness dizziness and with good heart rate blood pressure response. He does not have any fever. He denies any cough. He denies any symptoms of malaise or chills. On telemetry patient had 9 beat run of nonsustained atrial tachycardia. His resting ECG otherwise shows atrial fibrillation. He is rate controlled. Chronic atrial fibrillation. PHYSICAL EXAM: VITAL SIGNS: Reviewed. GENERAL: Well-developed in no acute distress. HEENT: Head is normocephalic. Pupils are equal, round. Sclerae anicteric. Mucous membranes of the mouth are moist. Neck supple. No JVD or thyromegaly LUNGS: Respirations even and unlabored. Decreased air entry on right side. Normal breath sounds on left. Frequent coughing noted during examination HEART: Irregular rate and rhythm. S1 and S2 heard. ABDOMEN: Soft. Nondistended. Nontender. EXTREMITIES: 2+ bilateral lower extremity edema, worse at the ankles NEUROLOGIC: Awake and alert. Oriented x 3. ASSESSMENT: Shortness of breath Pulmonary embolism Acute on chronic heart failure with preserved EF, 50 to 55%, mainly right sided heart failure Right lower lobe lobectomy, September 29, 2023 Paroxysmal atrial fibrillation History of Watchman device History of cardioversion x 1 Moderate pulmonary hypertension Coronary artery disease with previous stenting, details unknown Hypertension Hyperlipidemia PLAN: Continue aspirin 81 mg, metoprolol XL 50 mg daily, ranexa 500mg BID Due to low blood pressure, reduce lisinopril to 5 mg daily. Discontinue IV heparin drip. Start Eliquis VTE dosing Continue torsemide 10 mg daily, Aldactone 25 mg and Farxiga 10 mg daily. At this time patient is optimized from cardiovascular standpoint. His hemoglobin has been stable on aspirin and Eliquis. Patient does have a prior history of watchman so he might be at increased risk of bleeding going forward on aspirin and Eliquis. Watch for any signs of bleeding. Patient does have elevated WBC count from 02/17/24 time. I will defer this to primary care team. Do not use midodrine as scheduled. Only use as needed for SBP less than 90 mmHg Cardiology team will sign off. Please reconsult in case of any questions, Objective - Vital Signs Vital signs: Vital Signs Temp 98.0 F 02/18/24 11:10 Pulse 88 02/18/24 11:10 Resp 20 02/18/24 11:10 BP 127/68 02/18/24 11:10 Pulse Ox 97 02/18/24 11:10 FiO2 Intake & Output 02/17/24 02/18/24 02/18/24 18:59 06:59 18:59 Intake Total 250 364 Output Total 443 084 4567 Balance -889 -075 -0010 Intake: IV 10 10 Invasive Line 2 10 10 Oral 240 354 Output: Urine 533 152 7308 Uretheral (Garcia) 250 Other: Voiding Method Indwelling Catheter Indwelling Catheter # Bowel Movements 1 1 - Labs CBC & Chem 7: 02/17/24 08:44 02/17/24 08:44
--- NOTE | 2024-02-18 18:36 | P.PN ---
Subjective Progress Note Date: 02/18/24 This is a 83-year-old male patient with metastatic pulmonary adenocarcinoma the patient is currently Terbecta. Noted the patient has undergone a previous right lower lobe resection and this was performed on 09/29/2023. Subsequently, his disease was found to be metastatic and based on the most recent PET/CT that was done on 12/31/2023, the patient had diffuse metastases involving the skeletal system and soft tissue metastatic deposit as discussed on the PET CT. The patient also had a mass in his left ribbon sweatband operator space extending into the posterior left maxillary sinus. This was compatible also by an MRI finding that was done on 01/07/2024. The patient was accordingly treated by radiation therapy. Patient came into the emergency department yesterday because of worsening shortness of breath. A CT of the chest was done and the patient was found to have a filling defect involving the right middle lobe and right lower lobe pulmonary artery. There is also mild enlargement of the pulmonary trunk and cardiomegaly and additional smaller segmental embolism of the left lower lobe pulmonary artery. Scarring and atelectatic changes was present in the right hilum and infrahilar area. Previously described pulmonary nodule in the right has shrunk in size from 11 mm to 8 mm in size. There is a small right-sided pleural effusion. There is evidence of bony metastases involving the right anterior second rib that is slightly improved. However, there was a new pathologic healing/nondisplaced fracture of the right lateral sixth rib. At this point in time, the patient is hemodynamically stable on 2 L of oxygen by nasal cannula. The venous Doppler of the lower extremity was negative. Echocardiogram was completed and the patient was found to have a preserved LV function, RV was severely dilated and the patient has moderate degree of pulm hypertension with a PA pressure of around 50. Nevertheless, the patient's pulmonary hypertension is essentially chronic and a previous identified systolic pressure based on echocardiogram from 10/22/2023 was 66. Troponins are nonelevated. The patient's proBNP level is 1110. No hemoptysis. No pleurisy. This is a follow-up is being done on 02/16/2024 on this patient who got admitted yesterday to the hospital because of pulmonary embolism. The patient is currently on IV heparin. On today's evaluation, the patient is experiencing increased cough and congestion and some limited shortness of breath. The patient also encountered some hypotension overnight and the patient was given bolus of IV fluids 500 cc x 2. He is currently normotensive. I discussed the case with vascular surgery. The patient was not found to be a candidate for endovascular intervention including thrombolytics or clot thrombectomy. We decided to proceed with IV heparin for now.No fever. No chills. The patient remains hemodynamically stable. On today's evaluation, the patient is still on oxygen and the patient remains on O2 at 3 L/min nasal cannula. Echocardiogram was noted. Doppler of the lower extremities showed no evidence of any DVT. 02/17/2024, I am seeing this patient for a follow-up. The patient is feeling better compared to yesterday. Less bronchospastic and wheezy and his chest examination is congested. The patient remains on IV heparin at this will be transition to anticoagulation with Eliquis. No significant complaints. Hemoptysis. No pleurisy. No chest pain. Cough and congestion and bronchospasm wheezing is improved significantly as the patient was started on a combination of bronchodilators, steroids and IV Solu-Medrol and Mucinex DM. White cell count of 14 with a hemoglobin 12 and a platelet count of 170. The BUN is at 20 with a creatinine of 0.8 and sodium is at 131 with a potassium level of 5.2. He is currently on oxygen 3 L with a pulse ox of 98%. Overall, improved compared to yesterday. On today's evaluation of 02/19/2024, the patient is being seen for a follow-up. Doing extremely well. Currently on anticoagulation with Eliquis. No significant cough sputum production or chest congestion or wheezing. No bleeding complications. WBC count is at 14.8 with a hemoglobin of 12.2 from yesterday. Rest of the electrolytes are all stable. The patient is currently on oxygen at 3 L with a pulse ox of 97%. He has home O2. He remains on anticoagulation with Eliquis. No other significant events overnight. He feels great. He is ambulating. Objective - Vital Signs Vital signs: Vital Signs Temp 98.0 F 02/18/24 11:10 Pulse 88 02/18/24 11:10 Resp 20 02/18/24 11:10 BP 127/68 02/18/24 11:10 Pulse Ox 97 02/18/24 11:10 FiO2 Intake & Output 02/17/24 02/18/24 02/18/24 18:59 06:59 18:59 Intake Total 250 246 Output Total 800 600 600 Balance -550 -600 -354 Intake: IV 10 10 Invasive Line 2 10 10 Oral 240 236 Output: Urine 800 600 600 Uretheral (Garcia) 250 Other: Voiding Method Indwelling Catheter Indwelling Catheter # Bowel Movements 1 - Exam GENERAL EXAM: Alert, pleasant 83-year-old male, on 3 L of oxygen by nasal cannula, fairly comfortable in no apparent distress. HEAD: Normocephalic. EYES: Normal reaction of pupils, equal size. NOSE: Clear with pink turbinates. THROAT: No erythema or exudates. NECK: No masses, no JVD. CHEST: No chest wall deformity. LUNGS: Equal air entry with crackles in the right lung base. CVS: S1 and S2 normal with no audible murmur, regular rhythm. ABDOMEN: No hepatosplenomegaly, normal bowel sounds, no guarding or rigidity. SPINE: No scoliosis or deformity SKIN: No rashes CENTRAL NERVOUS SYSTEM: No focal deficits, tone is normal in all 4 extremities. EXTREMITIES: There is 1-2+ peripheral edema. No clubbing, no cyanosis. Peripheral pulses are intact. - Labs CBC & Chem 7: 02/17/24 08:44 02/17/24 08:44 Assessment and Plan Plan: Pulmonary embolism, likely acute and the patient has a filling defect at the right lower lobe pulmonary artery branch in addition to subsegmental filling defect on the left. Doppler lower extremities are negative. Troponins are nonelevated. proBNP is elevated and the patient has chronic pulmonary hypertension without any interval worsening in the PA pressures based on a previous echocardiogram that was done in October 2023. Hemodynamically stable currently on oxygen at 3 L/min nasal cannula. The patient remains on oral anticoagulants with Eliquis. Clinically stable. Hemodynamically stable. No significant shortness of breath. Increased cough congestion and wheezing, improved with bronchodilators and steroids and antibiotics. Overall respiratory status is improved considerably. Acute hypoxic respiratory failure currently on 3L of O2 nasal cannula Metastatic adenocarcinoma of the lung currently on Tebrecta, the patient has metastatic deposits involving the skeletal system and the soft tissue in addition to left ribbon sweatband operator space extending to his sinus and the patient has been treated by radiation therapy to his left face/sinus area. Previous history of a right lower lobectomy for non-small cell lung cancer Coronary artery disease with previous cardiac catheterization and stenting COPD Chronic atrial fibrillation the patient has a watchman's device Previous history of GI bleed Hypertension Hyperlipidemia Obstructive sleep apnea Previous history of prostate cancer Plan Continue anticoagulation with Eliquis Continue bronchodilators, oral Augmentin and Mucinex DM Prednisone burst taper at time of discharge Home O2 Possible discharge home today
== END 2024-02-18 16:40 | disposition home or self-care (01) | DRG 175 ==
LOC: EC 17:17 → 3SCARD 21:49
PROVIDERS: ADMIT Family Medicine; ATTEND Family Medicine
DX: I26.99 Other pulmonary embolism without acute cor pulmonale (principal); I50.33 Acute on chronic diastolic (congestive) heart failure; J96.01 Acute respiratory failure with hypoxia; C34.90 Malignant neoplasm of unspecified part of unspecified bronchus or lung; C79.51 Secondary malignant neoplasm of bone; E87.1 Hypo-osmolality and hyponatremia; I45.2 Bifascicular block; I48.21 Permanent atrial fibrillation; M84.48XA Pathological fracture, other site, initial encounter for fracture; E78.5 Hyperlipidemia, unspecified; G47.30 Sleep apnea, unspecified; I11.0 Hypertensive heart disease with heart failure; I25.10 Atherosclerotic heart disease of native coronary artery without angina pectoris; I27.29 Other secondary pulmonary hypertension; I50.813 Acute on chronic right heart failure; I95.1 Orthostatic hypotension; J44.9 Chronic obstructive pulmonary disease, unspecified; G47.33 Obstructive sleep apnea (adult) (pediatric); I08.1 Rheumatic disorders of both mitral and tricuspid valves; J98.01 Acute bronchospasm; Z79.01 Long term (current) use of anticoagulants; Z79.02 Long term (current) use of antithrombotics/antiplatelets; Z79.899 Other long term (current) drug therapy; Z82.49 Family history of ischemic heart disease and other diseases of the circulatory system; Z85.118 Personal history of other malignant neoplasm of bronchus and lung; Z85.46 Personal history of malignant neoplasm of prostate; Z87.891 Personal history of nicotine dependence; Z90.2 Acquired absence of lung [part of]; Z92.3 Personal history of irradiation; Z95.5 Presence of coronary angioplasty implant and graft; Z95.818 Presence of other cardiac implants and grafts; Z88.8 Allergy status to other drugs, medicaments and biological substances
CPT/HCPCS: 36415; 80053; 83735; 83880; 84100; 84484; 85025; 85610; 85730; 87070; 87205; 93005; 93306; 93970; 94640; 94760; 96365; 96366; 96375; 99291

== ENCOUNTER → 2024-02-14 | Outpatient (CLI) | payer MEDICARE ==
[2024-02-14 13:32] LABS: African American GFR (CKD) >90 (>60 ml/min/1.73 sqM); Blood Urea Nitrogen 18 mg/dL (9-20); Non-African American GFR(CKD) 80 (>60 ml/min/1.73 sqM)
--- NOTE | 2024-02-14 16:17 | CT ---
EXAMINATION TYPE: CT chest angio for PE CT DLP: 510 mGycm, Automated exposure control for dose reduction was used. DATE OF EXAM: 02/14/2024 2:18 PM COMPARISON: PET CT 12/30/2023 CLINICAL INDICATION:Male, 83 years old with history of J90.0 RIGHT PLEURAL EFFUSION; RT pleural effus ion hx lung ca and tumor removal stat hold and call TECHNIQUE/CONTRAST: CTA scan of the thorax is performed with IV Contrast, patient injected with 100 mL of Isovue 370, MIP images are created and reviewed these are created on a separate workstation.. FINDINGS: There is adequate contrast bolus and timing. PULMONARY ARTERIES: Pulmonary trunk enhances normally and is mildly enlarged at 3.1 cm. The left and proximal right main pulmonary arteries enhance normally with no large central/saddle embolus detected . However on the right there is a moderate sized filling defect consistent with embolus seen beginning after the takeoff of the right upper lobe artery, with extension into he proximal right middle and lo wer lobe arteries, or remnants thereof, as the patient appears to be post partial pneumonectomy on th e right. Right inferior pulmonary vein is also truncated, likely postsurgical. Additionally on the left, there is a small defect seen in the left lower lobe artery, within a segmen maik posterior lateral branch. AORTA: Moderate atherosclerotic calcifications of the aorta and branches, including the coronary art eries. Ascending aorta is 4.1 CM, descending is 2.7 CM. No dissection flap is seen given the suboptim al phase of contrast. HEART: Mild to moderate cardiomegaly. Moderate coronary artery calcifications and/or stents. There is a left atrial appendage occlusion device. No appreciable pericardial effusion. Pericardial fat is p rominent. LOWER NECK: No significant findings. MEDIASTINUM: No enlarged nodes by CT size criteria. SOFT TISSUES/AXILLA: No chest wall soft tissue lesions visible. No axillary adenopathy. Mild bilatera l gynecomastia changes. LUNGS/ PLEURA: Postoperative changes on the right with partial pneumonectomy changes seen including r esection of the right middle and/or lower lobe. Scarring and/or atelectasis in the right hilar and in frahilar region, similar to the prior exam; underlying active malignant/metastatic tissue cannot be f ully excluded. Small right pleural effusion again noted, unchanged. The imaged aerated right lung shaina ws mild/moderate emphysematous changes and subpleural micronodules. A hot nodule close to the right lung base was 11 mm on previous PET and is now about 8 mm image 74. N o acute infiltrate or pneumothorax is seen. The left lung appears stable, a few scattered micronodule s and mild dependent subsegmental atelectatic changes. No significant infiltrate or consolidation. No pneumothorax. AIRWAY: Trachea shows a thin wisp of opacity transversely in its midportion, this may represent secre tions, web or other debris. Farther distally, the left-sided bronchi appear patent. On the right, rig ht upper lobe bronchus is patent. The bronchus intermedius is patent for a short segment before becom ing occluded with frothy secretions/debris and is also truncated, with postoperative changes seen in this region. MUSCULOSKELETAL: Degenerative changes with flowing anterior syndesmophytes at multiple levels in the dorsal spine suggestive of DISH. There may be tiny scattered metastases. Metastasis involving the rig ht anterior second rib shows slight interval improvement. There appears to be a pathologic healing no ndisplaced fracture of the right lateral sixth rib, where there was a small metastasis before. No tanna sharonda acute bony abnormality is demonstrated, to include fracture or new/progressive destructive lesio n. Metastases involving the ribs, were better seen on previous PET/CT. Other scattered osseous FDG up take was noted on PET, please refer to that report for details. UPPER ABDOMEN: No mass of the visualized adrenals. Partially seen right perinephric fat stranding. Th e RV/LV ratio does not appear increased.There is reflux of contrast seen from the heart to the level of the hepatic veins, with especially dense contrast seen in the right hepatic vein, hepatic level IV C and slightly below. IMPRESSION: 1. POSITIVE STUDY FOR PULMONARY EMBOLUS in the proximal right middle and/or lower lobe arteries, in a patient status post partial right pneumonectomy. 2. Mildly enlarged pulmonary trunk, can be seen with pulmonary hypertension and/or exacerbated by th e embolus. 3. Cardiomegaly, with reflux of contrast to the hepatic level IVC and hepatic veins, suggestive of r ight heart insufficiency. 4. Additional small segmental embolus in the left lower lobe pulmonary artery. 5. Postoperative changes on the right from partial pneumonectomy, with resection of the right middle and/or lower lobes noted. 6. Presumed scarring and/or atelectasis in the right hilar and infrahilar region, similar to the brent or exam; underlying small active malignant/metastatic tissue cannot be fully excluded. 7. Previous 11 mm nodule in the right lung base on previous PET/CT appears reduced, now about 8 mm. 8. Small right pleural effusion again noted, unchanged. 9. Moderate atherosclerotic calcifications of the aorta and branches, including the coronary arterie s. 10. Fusiform ectasia of the ascending aorta, 4.1 cm. 11. Osseous metastases redemonstrated, as above. Metastasis involving the right anterior second rib shows slight interval improvement. There appears to be a new, pathologic healing nondisplaced fractur e of the right lateral sixth rib, where there was a small metastasis before.
== END | disposition home or self-care (01) ==
LOC: RADCTMAIN 12:50
PROVIDERS: ATTEND Family Medicine
DX: Z01.818 Encounter for other preprocedural examination (principal); C79.51 Secondary malignant neoplasm of bone; J90 Pleural effusion, not elsewhere classified; I51.7 Cardiomegaly; I70.0 Atherosclerosis of aorta; I26.99 Other pulmonary embolism without acute cor pulmonale
CPT/HCPCS: 82565; 84520; 71275; 36415; Q9967

== ENCOUNTER → 2024-03-02 | Outpatient (CLI) | payer MEDICARE ==
--- NOTE | 2024-03-04 12:56 | PE ---
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 Images are reviewed on the computer in the coronal, a xial, and sagittal planes. Reconstructed rotating images are created on independent workstation and reviewed on the computer. A non-contrast CT is performed in conjunction with the PET scan. Glucose level 131 mg/dL CT DLP: 955 mGycm, Automated exposure control for dose reduction was used. COMPARISON: CT 03/03/2024, 02/14/2024, PET/CT 12/30/2023, MRI: None FINDINGS: Mediastinal SUV mean is 2.34. Hepatic parenchyma SUV mean is 3.47. IMPRESSION: Abnormal uptake within right rib 2 and right 10th transverse process. SKULL BASE AND NECK: * Left saw boss space/sinus destructive mass max SUV 4.9, previously 27.3, 22.0. CHEST, MEDIASTINUM, AND HILAR REGION: * Postsurgical changes to the right lower lobe with right pleural effusion with uptake at the pleura l right lateral aspect of the lung base max SUV 5.2. New abnormal FDG activity throughout the thorax. Examples include: * Right lower lobe peripheral lateral 11 mm nodule is no longer visualized previously Max SUV 29.36. * Right shoulder lymph node max SUV 13.5, is no longer visualized. * Right upper extremity muscle medially max SUV 10.9, is no longer visualized. * Right posterior inferior pulmonary hilum max SUV 36.7 , is no longer visualized. * Right anterior inferior pulmonary hilum max SUV 16.2, is no longer visualized. ABDOMEN AND PELVIS: * Abnormal uptake within the abdomen . * left hepatic lobe no longer visualized, * Lymph node anterior to the left hepatic lobe is no longer visualized * Small focus of uptake near the diaphragm on the left Max SUV 26.7 is no longer visualized.. MUSCULOSKELETAL STRUCTURES: Scattered abnormal FDG activity within the osseous structures. Examples include: * Posterior right rib 3 max SUV 5.1, previously 11.7 this may be secondary to fracture. * Right scapula 3.1, previously 17.3. * Right anterior rib 2 max SUV 3.1, previously 23.4. * Right rib 6 fracture max SUV 4.5 previously 17.7. * Right gluteus medius max SUV 1.9, previously 13.0. Possibly relating to muscle previous muscle inj ury. * Right obturator externus muscle max SUV 2.6, previously 19.3 Possibly relating to previous muscle injury. * Left iliac bone max SUV 2.4, previously 17.0 * Posterior elements of T10 on the right max SUV 5.8, previously 21.1 * Sternum max SUV 2.6, previously 18.5. OTHER CT: Right aphakia. Atherosclerosis of the vasculature including the carotid bifurcations the in tracranial arteries and coronary arteries along with others. The bladder is distended. Prostatomegaly . Bilateral fat-containing inguinal hernias. The gallbladder surgically absent. Heart is enlarged for size. Atrial appendage occlusion device present. Mild gynecomastia changes bilaterally. IMPRESSION: Positive response to therapy with decreasing metabolically active lesions throughout the exam.
== END | disposition home or self-care (01) ==
LOC: RADPETMAIN 08:39
PROVIDERS: ATTEND Radiology Radiation Oncology
DX: C79.89 Secondary malignant neoplasm of other specified sites (principal); C34.31 Malignant neoplasm of lower lobe, right bronchus or lung; Z08 Encounter for follow-up examination after completed treatment for malignant neoplasm; Z92.3 Personal history of irradiation; Z87.891 Personal history of nicotine dependence; C61 Malignant neoplasm of prostate
CPT/HCPCS: 78815; A9552

== ENCOUNTER 2024-03-03 12:43 | Inpatient (IN) | payer MEDICARE ==
[2024-03-03 13:31] LABS: Anisocytosis Slight; Basophils % (A) 0 %; Eosinophils # (A) 0.1 k/uL (0-0.7); Eosinophils % (A) 1 %; Lymphocytes # (A) 0.5 k/uL (1.0-4.8); Lymphocytes % (A) 3 %; MCH 27.8 pg (25.0-35.0); Monocytes # (A) 0.9 k/uL (0-1.0); Monocytes % (A) 6 %; Neutrophils # (A) 13.1 k/uL (1.3-7.7); Neutrophils % (A) 89 %; RBC 5.41 m/uL (4.30-5.90); RDW 18.2 % (11.5-15.5); WBC 14.8 k/uL (3.8-10.6)
[2024-03-03 13:43] LABS: ALT 23 U/L (4-49); AST 26 U/L (17-59); African American GFR (CKD) 79 (>60 ml/min/1.73 sqM); Albumin 3.1 g/dL (3.5-5.0); Alkaline Phosphatase 78 U/L (38-126); Anion Gap 3 mmol/L; Blood Urea Nitrogen 20 mg/dL (9-20); Calcium 8.2 mg/dL (8.4-10.2); Carbon Dioxide 28 mmol/L (22-30); Chloride 93 mmol/L (98-107); Glucose 133 mg/dL (74-99); Lipase 311 U/L (23-300); Non-African American GFR(CKD) 69 (>60 ml/min/1.73 sqM); Potassium 4.6 mmol/L (3.5-5.1); Sodium 124 mmol/L (137-145); Total Bilirubin 2.4 mg/dL (0.2-1.3); Total Protein 5.6 g/dL (6.3-8.2)
[2024-03-03 14:01] LABS: Mean Platelet Volume 376; Platelet Count 355 k/uL (150-450)
--- NOTE | 2024-03-03 14:53 | ED ---
Abdominal Pain HPI - General Chief Complaint: Abdominal Pain Stated Complaint: Constipation Time Seen by Provider: 03/03/24 12:55 Source: patient, EMS Mode of arrival: EMS - History of Present Illness Initial Comments: 83-year-old male with past medical history of lung cancer who presents to the emergency department reporting abdominal pain and vomiting. States his symptoms started this morning. He has been retching persistently. He continues to pass gas but cannot hold anything down. States he has not eaten well in the past week. He has not had a bowel movement in 4 days. He has metastatic lung cancer. States that he is on oral medication for his cancer as well as infusions. Patient is also getting radiation. Patient had a PET scan yesterday. He does not know the results yet. He denies chest pain or difficulty breathing. He did take a laxative this morning without relief. No other alleviating, precipitating modifying factors - Related Data Home Medications Medication Instructions Recorded Confirmed Ranolazine [Ranexa] 500 mg PO HS 09/03/17 03/03/24 Spironolactone [Aldactone] 25 mg PO DAILY 11/18/23 03/03/24 Capmatinib Hydrochloride [Tabrecta] 200 mg PO BID 02/14/24 03/03/24 Omeprazole 40 mg PO HS 02/14/24 03/03/24 Apixaban [Eliquis] 5 mg PO BID 03/03/24 03/03/24 Meclizine [Antivert] 12.5 mg PO Q8H 03/03/24 03/03/24 Torsemide [Demadex] 20 mg PO DAILY 03/03/24 03/03/24 guaiFENesin-DM 600/30MG [Mucinex 2 tab PO Q12HR 03/03/24 03/03/24 Dm] Previous Rx's Medication Instructions Recorded Aspirin 81 mg PO DAILY 90 Days #90 tab 02/18/24 Dapagliflozin Propanediol [Farxiga] 10 mg PO DAILY 90 Days #90 tab 02/18/24 Ipratropium-Albuterol Nebulize 3 ml INHALATION RT-QID 30 Days 02/18/24 [Duoneb 0.5 mg-3 mg/3 ml Soln] #120 each Lactulose [Cephulac] 20 gm PO TID PRN 90 Days #90 ml 02/18/24 Metoprolol Succinate (ER) [Toprol 50 mg PO DAILY 90 Days #90 tab 02/18/24 XL] Montelukast [Singulair] 10 mg PO HS 90 Days #90 tab 02/18/24 Nystatin 100,000 Unit/ml Susp 500,000 unit PO QID 1 Days #300 ml 02/18/24 [Mycostatin Oral Susp] Tamsulosin [Flomax] 0.4 mg PO PC-BRKFST 90 Days #90 cap 02/18/24 lisinopriL [Zestril] 5 mg PO DAILY 90 Days #90 tab 02/18/24 Allergies Allergy/AdvReac Type Severity Reaction Status Date / Time capecitabine Allergy Rash/Hives Verified 03/03/24 15:58 cortisone [Cortisone] Allergy Swelling Verified 03/03/24 15:58 and itching surgical tape Allergy "Broke Uncoded 03/03/24 15:58 out" "Got infection" Review of Systems ROS Statement: Those systems with pertinent positive or pertinent negative responses have been documented in the HPI. ROS Other: All systems not noted in ROS Statement are negative. Past Medical History Past Medical History: Atrial Fibrillation, Coronary Artery Disease (CAD), Cancer, Eye Disorder, GI Bleed, Hyperlipidemia, Hypertension, Pneumonia, Skin Disorder, Sleep Apnea/CPAP/BIPAP, Vascular Disorder Additional Past Medical History / Comment(s): dx of lung CA Aug 2023, pneumonia Sep 2023, recent dx hemoptysis-post bronchoscopy- Sep 2023, pt states he is still coughing up blood but "It's a lot less.", back pain-increased pain with walking,Vertigo, hiatal hernia, gout, eczema, bleeds easily, uses cpap, history of prostate cancer, cataract lt eye, "I have circulation issues with my legs." "My collections agent said we were going to deal with my lungs first before worrying about my legs.", pt reports swelling to bilat legs due to "I injured them falling off a ladder and my legs got stuck in ladder." cancer recent radiation treatment active chemo pills. History of Any Multi-Drug Resistant Organisms: None Reported Past Surgical History: Cholecystectomy, Heart Catheterization With Stent, Orthopedic Surgery, Prostate Surgery Additional Past Surgical History / Comment(s): Recent Bronchoscopy Aug 2023, Exploratory Abdominal Surgery; ORIF titanium/screws in LT Ankle. REPAIR BICEP TENDON LT ARM. RT CATARACT. STENTS X2. cyst removed from under chin, prostate surgery with 44 radiation txs, Watchman procedure, R lung lower lobectomy 09/28 Past Anesthesia/Blood Transfusion Reactions: Previous Problems w/ Anesthesia Additional Past Anesthesia/Blood Transfusion Reaction / Comment(s): DEVELOPED AFIB AFTER CATARACT SURG 2013. No hx of blood transfusions. Date of Last Stent Placement:: 2013 Past Psychological History: No Psychological Hx Reported Smoking Status: Former smoker Past Alcohol Use History: None Reported Past Drug Use History: None Reported - Past Family History Mother Family Medical History: Coronary Artery Disease (CAD), Myocardial Infarction (M I) Additional Family Medical History / Comment(s): from myocardial infarction at 69 years old Father Family Medical History: Coronary Artery Disease (CAD), Myocardial Infarction ([place]) Additional Family Medical History / Comment(s): from myocardial infarction at 69 years old General Exam General appearance: alert, in no apparent distress Head exam: Present: atraumatic, normocephalic, normal inspection Eye exam: Present: normal appearance, PERRL, EOMI. Absent: scleral icterus, conjunctival injection, periorbital swelling ENT exam: Present: normal exam, mucous membranes moist Neck exam: Present: normal inspection. Absent: tenderness, meningismus, lymphadenopathy Respiratory exam: Present: normal lung sounds bilaterally. Absent: respiratory distress, wheezes, rales, rhonchi, stridor Cardiovascular Exam: Present: regular rate, normal rhythm, normal heart sounds. Absent: systolic murmur, diastolic murmur, rubs, gallop, clicks GI/Abdominal exam: Present: distended, tenderness, normal bowel sounds. Absent: guarding, rebound, rigid Extremities exam: Present: normal inspection, full ROM, normal capillary refill. Absent: tenderness, pedal edema, joint swelling, calf tenderness Back exam: Present: normal inspection Neurological exam: Present: alert, oriented X3, CN II-XII intact Psychiatric exam: Present: normal affect, normal mood Skin exam: Present: warm, dry, intact, normal color. Absent: rash Course Vital Signs 03/03/24 03/03/24 12:48 16:15 Temperature 97.5 F L Pulse Rate 68 65 Respiratory 20 18 Rate Blood Pressure 110/98 111/67 O2 Sat by Pulse 93 L 95 Oximetry Medical Decision Making - Medical Decision Making Was pt. sent in by a medical professional or institution (ALEXA Reynaga, [employer], urgent care, hospital, or skilled nursing...) When possible be specific @ -No Did you speak to anyone other than the patient for history (EMS, parent, family, police, friend...)? What history was obtained from this source @ -No Did you review nursing and triage notes (agree or disagree)? Why? @ -I reviewed and agree with nursing and triage notes Were old charts reviewed (outside hosp., previous admission, EMS record, old EKG, old radiological studies, urgent care reports/EKG's, skilled nursing records)? Report findings @ -I reviewed patient's PET scan from yesterday however this is not read Differential Diagnosis (chest pain, altered mental status, abdominal pain women, abdominal pain men, vaginal bleeding, weakness, fever, dyspnea, syncope, headache, dizziness, GI bleed, back pain, seizure, CVA, palpatations, mental health, musculoskeletal)? @ -Differential Abdominal Pain Men: Appendicitis, cholecystitis, diverticulosis, ischemic bowel, pancreatitis, hepatitis, UTI, gastroenteritis, AAA, incarcerated hernia, bowel obstruction, constipation, inflammatory bowel, hepatitis, peptic ulcer disease, splenic infarction, perforated viscus, testicular torsion, this is not meant to be an all-inclusive list EKG interpreted by me (3pts min.). @ -Not done X-rays interpreted by me (1pt min.). @ -None done CT interpreted by me (1pt min.). @ -Yes and demonstrates signs of ileus. No transition point U/S interpreted by me (1pt. min.). @ -None done What testing was considered but not performed or refused? (CT, X-rays, U/S, labs)? Why? @ -None What meds were considered but not given or refused? Why? @ -None Did you discuss the management of the patient with other professionals (professionals i.e. ALEXA Reynaga, [employer], lab, RT, psych nurse, social studies teacher, drill presser, teacher, sailing officer, casework specialist)? Give summary @ -Spoke with Dr. Allen for admission Was smoking cessation discussed for >3mins.? @ -No Was critical care preformed (if so, how long)? @ -No Were there social determinants of health that impacted care today? How? (Homelessness, low income, unemployed, alcoholism, drug addiction, transportation, low edu. Level, literacy, decrease access to med. care, mcc, rehab)? @ -No Was there de-escalation of care discussed even if they declined (Discuss DNR or withdrawal of care, Hospice)? DNR status @ -No What co-morbidities impacted this encounter? (DM, HTN, Smoking, COPD, CAD, Cancer, CVA, ARF, Chemo, Hep., AIDS, mental health diagnosis, sleep apnea, morbid obesity)? @ -Lung cancer with mets Was patient admitted / discharged? Hospital course, mention meds given and route, prescriptions, significant lab abnormalities, going to OR and other pertinent info. @ -Upon arrival patient seen and evaluated in room 23. Thorough history and physical exam was performed. Patient was given antiemetics. Laboratory studies are conducted. CT is performed which demonstrates ileus. Patient remains nauseated and requires a second dose of nausea medications. I recommend admission for surgery consult. Patient agreeable to this. He was admitted to Dr. Allen in stable condition Undiagnosed new problem with uncertain prognosis? @ -No Drug Therapy requiring intensive monitoring for toxicity (Heparin, Nitro, Insulin, Cardizem)? @ -No Were any procedures done? @ -No Diagnosis/symptom? @ -Acute abdominal pain, acute ileus, acute nausea and vomiting, history of lung cancer with mets Acute, or Chronic, or Acute on Chronic? @ -Acute Uncomplicated (without systemic symptoms) or Complicated (systemic symptoms)? @ -Complicated Side effects of treatment? @ -No Exacerbation, Progression, or Severe Exacerbation? @ -No Poses a threat to life or bodily function? How? (Chest pain, [place], [place], pneumonia, PE, COPD, DKA, ARF, appy, cholecystitis, CVA, Diverticulitis, Homicidal, Suicidal, threat to staff... and all critical care pts) @ -No - Lab Data Result diagrams: 03/07/24 14:50 03/08/24 06:17 Lab Results 03/03/24 03/03/24 03/03/24 Range/Units 13:07 13:07 13:07 WBC 14.8 H (3.8-10.6) k/uL RBC 5.41 (4.30-5.90) m/uL Hgb 15.0 (13.0-17.5) gm/dL Hct 47.0 (39.0-53.0) % MCV 87.0 (80.0-100.0) fL MCH 27.8 (25.0-35.0) pg MCHC 32.0 (31.0-37.0) g/dL RDW 18.2 H (11.5-15.5) % Plt Count 355 D (150-450) k/uL MPV 376 Immature Gran % (Auto) % Absolute Nucleated RBC % Neutrophils % 89 % Lymphocytes % 3 % Monocytes % 6 % Eosinophils % 1 % Basophils % 0 % Immature Gran # (0.00-0.04) X 10*3/uL Neutrophils # 13.1 H (1.3-7.7) k/uL Lymphocytes # 0.5 L (1.0-4.8) k/uL Monocytes # 0.9 (0-1.0) k/uL Eosinophils # 0.1 (0-0.7) k/uL Basophils # 0.0 (0-0.2) k/uL NRBC/100 WBC Diff (0.00-0.01) X 10*3/uL Anisocytosis Slight Sodium 124 L (137-145) mmol/L Potassium 4.6 (3.5-5.1) mmol/L Chloride 93 L (98-107) mmol/L Carbon Dioxide 28 (22-30) mmol/L Anion Gap 3 mmol/L BUN 20 (9-20) mg/dL Creatinine 1.01 (0.66-1.25) mg/dL Est GFR (CKD-EPI) (>=60) Est GFR (CKD-EPI)AfAm 79 (>60 ml/min/1.73 sqM) Est GFR (CKD-EPI)NonAf 69 (>60 ml/min/1.73 sqM) BUN/Creatinine Ratio (12.00-20.00) Ratio Glucose 133 H (74-99) mg/dL Plasma Lactic Acid Yeison 1.9 (0.7-2.0) mmol/L Calcium 8.2 L (8.4-10.2) mg/dL Total Bilirubin 2.4 H (0.2-1.3) mg/dL AST 26 (17-59) U/L ALT 23 (4-49) U/L Alkaline Phosphatase 78 (38-126) U/L Total Protein 5.6 L (6.3-8.2) g/dL Albumin 3.1 L (3.5-5.0) g/dL Globulin (1.6-3.3) g/dL Albumin/Globulin Ratio (1.60-3.17) Ratio Lipase 311 H (23-300) U/L Urine Color Urine Appearance (Clear) Urine pH (5.0-8.0) Ur Specific [place] (1.001-1.035) Urine Protein (Negative) Urine Glucose (UA) (Negative) Urine Ketones (Negative) Urine Blood (Negative) Urine Nitrite (Negative) Urine Bilirubin (Negative) Urine Urobilinogen (<2.0) mg/dL Ur Leukocyte Esterase (Negative) 03/03/24 03/03/24 03/04/24 Range/Units 19:22 22:10 05:33 WBC 8.75 (3.8-10.6) k/uL RBC 4.57 (4.30-5.90) m/uL Hgb 12.8 L (13.0-17.5) gm/dL Hct 38.6 L (39.0-53.0) % MCV 84.5 (80.0-100.0) fL MCH 28.0 (25.0-35.0) pg MCHC 33.2 (31.0-37.0) g/dL RDW 18.6 H (11.5-15.5) % Plt Count 199 (150-450) k/uL MPV 10.8 Immature Gran % (Auto) 0.70 % Absolute Nucleated RBC 0 % Neutrophils % 82.3 % Lymphocytes % 6.3 % Monocytes % 8.8 % Eosinophils % 1.4 % Basophils % 0.5 % Immature Gran # 0.06 H (0.00-0.04) X 10*3/uL Neutrophils # 7.21 (1.3-7.7) k/uL Lymphocytes # 0.55 L (1.0-4.8) k/uL Monocytes # 0.77 (0-1.0) k/uL Eosinophils # 0.12 (0-0.7) k/uL Basophils # 0.04 (0-0.2) k/uL NRBC/100 WBC Diff 0 (0.00-0.01) X 10*3/uL Anisocytosis Sodium (137-145) mmol/L Potassium (3.5-5.1) mmol/L Chloride (98-107) mmol/L Carbon Dioxide (22-30) mmol/L Anion Gap mmol/L BUN (9-20) mg/dL Creatinine (0.66-1.25) mg/dL Est GFR (CKD-EPI) (>=60) Est GFR (CKD-EPI)AfAm (>60 ml/min/1.73 sqM) Est GFR (CKD-EPI)NonAf (>60 ml/min/1.73 sqM) BUN/Creatinine Ratio (12.00-20.00) Ratio Glucose (74-99) mg/dL Plasma Lactic Acid Yeison 1.2 (0.7-2.0) mmol/L Calcium (8.4-10.2) mg/dL Total Bilirubin (0.2-1.3) mg/dL AST (17-59) U/L ALT (4-49) U/L Alkaline Phosphatase (38-126) U/L Total Protein (6.3-8.2) g/dL Albumin (3.5-5.0) g/dL Globulin (1.6-3.3) g/dL Albumin/Globulin Ratio (1.60-3.17) Ratio Lipase (23-300) U/L Urine Color Yellow Urine Appearance Clear (Clear) Urine pH 5.5 (5.0-8.0) Ur Specific [place] 1.039 H (1.001-1.035) Urine Protein Negative (Negative) Urine Glucose (UA) Negative (Negative) Urine Ketones Negative (Negative) Urine Blood Negative (Negative) Urine Nitrite Negative (Negative) Urine Bilirubin Negative (Negative) Urine Urobilinogen <2.0 (<2.0) mg/dL Ur Leukocyte Esterase Negative (Negative) 03/04/24 03/05/24 03/05/24 Range/Units 05:33 05:29 05:29 WBC 8.34 (3.8-10.6) k/uL RBC 4.64 (4.30-5.90) m/uL Hgb 12.5 L (13.0-17.5) gm/dL Hct 40.2 (39.0-53.0) % MCV 86.6 (80.0-100.0) fL MCH 26.9 L (25.0-35.0) pg MCHC 31.1 L (31.0-37.0) g/dL RDW 18.6 H (11.5-15.5) % Plt Count 225 (150-450) k/uL MPV 10.5 Immature Gran % (Auto) 0.80 % Absolute Nucleated RBC 0 % Neutrophils % 84.6 % Lymphocytes % 5.4 % Monocytes % 7.3 % Eosinophils % 1.4 % Basophils % 0.5 % Immature Gran # 0.07 H (0.00-0.04) X 10*3/uL Neutrophils # 7.05 (1.3-7.7) k/uL Lymphocytes # 0.45 L (1.0-4.8) k/uL Monocytes # 0.61 (0-1.0) k/uL Eosinophils # 0.12 (0-0.7) k/uL Basophils # 0.04 (0-0.2) k/uL NRBC/100 WBC Diff 0 (0.00-0.01) X 10*3/uL Anisocytosis Sodium 126 L 129 L (137-145) mmol/L Potassium 5.1 4.1 (3.5-5.1) mmol/L Chloride 96 97 (98-107) mmol/L Carbon Dioxide 23.6 24.7 (22-30) mmol/L Anion Gap 6.40 7.30 mmol/L BUN 15.6 12.3 (9-20) mg/dL Creatinine 1.0 1.2 (0.66-1.25) mg/dL Est GFR (CKD-EPI) 75 60 (>=60) Est GFR (CKD-EPI)AfAm (>60 ml/min/1.73 sqM) Est GFR (CKD-EPI)NonAf (>60 ml/min/1.73 sqM) BUN/Creatinine Ratio 15.60 10.25 L (12.00-20.00) Ratio Glucose 100 99 (74-99) mg/dL Plasma Lactic Acid Yeison (0.7-2.0) mmol/L Calcium 7.3 L 7.7 L (8.4-10.2) mg/dL Total Bilirubin 1.0 (0.2-1.3) mg/dL AST 20 (17-59) U/L ALT 23 (4-49) U/L Alkaline Phosphatase 66 (38-126) U/L Total Protein 4.5 L (6.3-8.2) g/dL Albumin 2.8 L (3.5-5.0) g/dL Globulin 1.7 (1.6-3.3) g/dL Albumin/Globulin Ratio 1.65 (1.60-3.17) Ratio Lipase (23-300) U/L Urine Color Urine Appearance (Clear) Urine pH (5.0-8.0) Ur Specific [place] (1.001-1.035) Urine Protein (Negative) Urine Glucose (UA) (Negative) Urine Ketones (Negative) Urine Blood (Negative) Urine Nitrite (Negative) Urine Bilirubin (Negative) Urine Urobilinogen (<2.0) mg/dL Ur Leukocyte Esterase (Negative) Disposition Clinical Impression: Ileus, Vomiting, Abdominal pain, Non-small cell lung cancer (NSCLC) Disposition: ADMITTED IP TO THIS [facility] Condition: Serious Is patient prescribed a controlled substance at d/c from ED?: No Time of Disposition: 15:13 Decision to Admit Reason: Admit from EC Decision Date: 03/03/24 Decision Time: 15:13
--- NOTE | 2024-03-03 14:54 | CT ---
EXAMINATION TYPE: CT abdomen pelvis w con DATE OF EXAM: 03/03/2024 COMPARISON: PET/CT 03/02/2024 HISTORY: 83-year-old male abdominal pain, constipation TECHNIQUE: Contiguous axial scanning of the abdomen and pelvis following administration of 100 ml Iso shonda 300 IV contrast. Delayed images through the kidneys and coronal/sagittal reconstructions perform ed. CT DLP: 1527 mGycm Automated exposure control for dose reduction was used. FINDINGS: Post surgical changes right base. There is endobronchial opacification within the right bro nchus intermedius and some increasing volume loss and opacity at the medial right base. A trace right pleural effusion and some smooth pleural thickening at the right base is unchanged. Occluder device within the left atrial appendage. Extensive three-vessel coronary calcifications. Lar ge caliber to the main right and left pulmonary arteries up to 3.0 cm suggesting underlying pulmonary hypertension. Benign 1.1 cm cyst left liver lobe. Cholecystectomy clips. Adrenal glands, kidneys, spleen, pancreas and no gross abnormality. Prominent fluid-filled small bowel loops throughout. Small bowel loops dilated up to 4.2 cm scattered air-fluid levels throughout. No discrete transition point is seen. Liquid stool throughout the right side of the colon. Mild stable left side of the colon. Redundant si gmoid colon. Moderate stool in the rectum. Normal appendix. Bladder distended. Prostate gland mildly enlarged at 4.8 cm wide. No abnormal fluid collection in the pelvis or pelvic lymphadenopathy seen. Incidentally, we note severe metastatic calcifications throughout the proximal to mid SMA. Bones: [facility] throughout the thoracic spine. Degenerative grade 1 anterolisthesis L4-L5 with hypertroph ic facet arthropathy. IMPRESSION: 1. DIFFUSELY DISTENDED SMALL BOWEL LOOPS WITH AIR-FLUID LEVELS BUT NO DISCRETE TRANSITION POINT. DILA TATION MEASURES UP TO 4.2 CM. THERE IS ALSO LIQUID STOOL IN THE RIGHT SIDE OF THE COLON. CONSIDER A G ENERALIZED ILEUS OR ENTERITIS. CORRELATE WITH LACTIC ACID LEVELS WELL TO EXCLUDE MESENTERIC ISCHEM IA GIVEN THE SEVERE ATHEROSCLEROTIC CHANGES IN THE SMA. 2. MODERATE SOLID STOOL WITHIN THE RECTUM. 3. Postsurgical change at the right base. Chronic trace right pleural effusion. There is new endobron chial opacification right bronchus intermedius with worsening aeration at the medial right base proba allan due to atelectasis or developing focal pneumonia. Upper and oncologic follow-up
[2024-03-03] MEDS: SODIUM CHLORIDE 0.9% 1,000 ML IV STA (15:06)
[2024-03-03] MEDS: MORPHINE SULFATE 4 MG/ML SYRINGE IVP STA (15:07)
[2024-03-03] MEDS: diphenhydrAMINE 50 MG/ML 1 ML VIAL IVP STA (15:07)
[2024-03-03] MEDS: METOCLOPRAMIDE 5 MG/ML 2 ML VIAL IVP STA (15:08)
[2024-03-03] MEDS ORDERED: MORPHINE SULFATE 4 MG/ML SYRINGE IV PRN (15:13)
[2024-03-03] MEDS ORDERED: NALOXONE 0.4 MG/ML 1 ML VIAL IV PRN (15:13)
[2024-03-03] MEDS: SODIUM CHLORIDE 0.9% 1,000 ML IV SCH (18:05)
[2024-03-03] MEDS: IPRATROPIUM-ALBUTEROL 3 ML NEB INHALATION SCH (20:31)
[2024-03-03] MEDS: MONTELUKAST 10 MG TAB PO SCH (21:05)
[2024-03-03] MEDS: APIXABAN 5 MG TAB PO SCH (21:05)
[2024-03-03] MEDS: Capmatinib Hydrochloride [Tabrecta] 200 MG Tablet PO SCH (21:05)
[2024-03-03] MEDS: guaiFENesin-DM 600/30MG 1 EACH TAB.ER.12H PO SCH (21:05)
[2024-03-03] MEDS: RANOLAZINE 500 MG TAB.ER.12H PO SCH (21:05)
[2024-03-03 22:33] LABS: Appearance,Urine Clear (Clear); Bilirubin,Urine Negative (Negative); Blood,Urine Negative (Negative); Color,Urine Yellow; Glucose,Urine (UA) Negative (Negative); Ketones,Urine Negative (Negative); Leukocyte Esterase,Urine Negative (Negative); Nitrite,Urine Negative (Negative); PH, Urine 5.5 (5.0-8.0); Protein,Urine Negative (Negative); Specific Gravity,Urine 1.039 (1.001-1.035); Urobilinogen,Urine <2.0 mg/dL (<2.0)
--- NOTE | 2024-03-03 22:40 | P.GSCN ---
History of Present Illness History of present illness: 83-year-old male with past medical history of lung cancer who presents to the em ergency department reporting abdominal pain and vomiting. States his symptoms started this morning. He has been retching persistently. He continues to pass gas but cannot hold anything down. States he has not eaten well in the past week. He has not had a bowel movement in 4 days. He has metastatic lung cancer. States that he is on oral medication for his cancer as well as infusions. Patient is also getting radiation. Patient had a PET scan yesterday. He does not know the results yet. He denies chest pain or difficulty breathing. He did take a laxative this morning without relief. No other alleviating, precipitating modifying factors Review of Systems - Constitutional Reports as per HPI Past Medical History Past Medical History: Atrial Fibrillation, Coronary Artery Disease (CAD), Cancer, Eye Disorder, GI Bleed, Hyperlipidemia, Hypertension, Pneumonia, Skin Disorder, Sleep Apnea/CPAP/BIPAP, Vascular Disorder Additional Past Medical History / Comment(s): dx of lung CA Aug 2023, pneumonia Sep 2023, recent dx hemoptysis-post bronchoscopy- Sep 2023, pt states he is still coughing up blood but "It's a lot less.", back pain-increased pain with walking,Vertigo, hiatal hernia, gout, eczema, bleeds easily, uses cpap, history of prostate cancer, cataract lt eye, "I have circulation issues with my legs." "My data abstractor said we were going to deal with my lungs first before worrying about my legs.", pt reports swelling to bilat legs due to "I injured them falling off a ladder and my legs got stuck in ladder." cancer recent radiation treatment active chemo pills. History of Any Multi-Drug Resistant Organisms: None Reported Past Surgical History: Cholecystectomy, Heart Catheterization With Stent, Orthopedic Surgery, Prostate Surgery Additional Past Surgical History / Comment(s): Recent Bronchoscopy Aug 2023, Exploratory Abdominal Surgery; ORIF titanium/screws in LT Ankle. REPAIR BICEP TENDON LT ARM. RT CATARACT. STENTS X2. cyst removed from under chin, prostate surgery with 44 radiation txs, Watchman procedure, R lung lower lobectomy 09/28 Past Anesthesia/Blood Transfusion Reactions: Previous Problems w/ Anesthesia Additional Past Anesthesia/Blood Transfusion Reaction / Comm: DEVELOPED AFIB AFTER CATARACT SURG 2013. No hx of blood transfusions. Date of Last Stent Placement:: 2013 Past Psychological History: No Psychological Hx Reported Smoking Status: Former smoker Past Alcohol Use History: None Reported Additional Past Alcohol Use History / Comment(s): SMOKED 20 YRS, 1 PPD, QUIT 1979 Past Drug Use History: None Reported - Past Family History Mother Family Medical History: Coronary Artery Disease (CAD), Myocardial Infarction ([place]) Additional Family Medical History / Comment(s): from myocardial infarction at 69 years old Father Family Medical History: Coronary Artery Disease (CAD), Myocardial Infarction ([place]) Additional Family Medical History / Comment(s): from myocardial infarction at 69 years old Medications and Allergies Home Medications Medication Instructions Recorded Confirmed Type Ranolazine [Ranexa] 500 mg PO HS 09/03/17 03/03/24 History Spironolactone [Aldactone] 25 mg PO DAILY 11/18/23 03/03/24 History Capmatinib Hydrochloride [Tabrecta] 200 mg PO BID 02/14/24 03/03/24 History Omeprazole 40 mg PO HS 02/14/24 03/03/24 History Aspirin 81 mg PO DAILY 90 Days #90 tab 02/18/24 03/03/24 Rx Dapagliflozin Propanediol [Farxiga] 10 mg PO DAILY 90 Days #90 tab 02/18/24 03/03/24 Rx Ipratropium-Albuterol Nebulize 3 ml INHALATION RT-QID 30 Days 02/18/24 03/03/24 Rx [Duoneb 0.5 mg-3 mg/3 ml Soln] #120 each Lactulose [Cephulac] 20 gm PO TID PRN 90 Days #90 ml 02/18/24 03/03/24 Rx Metoprolol Succinate (ER) [Toprol 50 mg PO DAILY 90 Days #90 tab 02/18/24 03/03/24 Rx XL] Montelukast [Singulair] 10 mg PO HS 90 Days #90 tab 02/18/24 03/03/24 Rx Nystatin 100,000 Unit/ml Susp 500,000 unit PO QID 1 Days #300 ml 02/18/24 03/03/24 Rx [Mycostatin Oral Susp] Tamsulosin [Flomax] 0.4 mg PO PC-BRKFST 90 Days #90 cap 02/18/24 03/03/24 Rx lisinopriL [Zestril] 5 mg PO DAILY 90 Days #90 tab 02/18/24 03/03/24 Rx Apixaban [Eliquis] 5 mg PO BID 03/03/24 03/03/24 History Meclizine [Antivert] 12.5 mg PO Q8H 03/03/24 03/03/24 History Torsemide [Demadex] 20 mg PO DAILY 03/03/24 03/03/24 History guaiFENesin-DM 600/30MG [Mucinex 2 tab PO Q12HR 03/03/24 03/03/24 History Dm] Allergies Allergy/AdvReac Type Severity Reaction Status Date / Time capecitabine Allergy Rash/Hives Verified 03/03/24 15:58 cortisone [Cortisone] Allergy Swelling Verified 03/03/24 15:58 and itching surgical tape Allergy "Broke Uncoded 03/03/24 15:58 out" "Got infection" Surgical - Exam Osteopathic Statement: *. No significant issues noted on an osteopathic structural exam other than those noted in the History and Physical/Consult. Vital Signs Temp Pulse Resp BP Pulse Ox 97.5 F L 68 20 110/98 93 L 03/03/24 12:48 03/03/24 12:48 03/03/24 12:48 03/03/24 12:48 03/03/24 12:48 gen: nad cv: rrr pul:non labored breathing abd: soft, non distended, min tenderness to palpation, no guarding or rebound tenderness Results - Labs 03/03/24 13:07 03/03/24 13:07 Abnormal Lab Results - Last 24 Hours (Table) 03/03/24 03/03/24 03/03/24 Range/Units 13:07 13:07 22:10 WBC 14.8 H (3.8-10.6) k/uL RDW 18.2 H (11.5-15.5) % Neutrophils # 13.1 H (1.3-7.7) k/uL Lymphocytes # 0.5 L (1.0-4.8) k/uL Sodium 124 L (137-145) mmol/L Chloride 93 L (98-107) mmol/L Glucose 133 H (74-99) mg/dL Calcium 8.2 L (8.4-10.2) mg/dL Total Bilirubin 2.4 H (0.2-1.3) mg/dL Total Protein 5.6 L (6.3-8.2) g/dL Albumin 3.1 L (3.5-5.0) g/dL Lipase 311 H (23-300) U/L Ur Specific [place] 1.039 H (1.001-1.035) Diabetes panel 03/03/24 Range/Units 13:07 Sodium 124 L (137-145) mmol/L Potassium 4.6 (3.5-5.1) mmol/L Chloride 93 L (98-107) mmol/L Carbon Dioxide 28 (22-30) mmol/L BUN 20 (9-20) mg/dL Creatinine 1.01 (0.66-1.25) mg/dL Glucose 133 H (74-99) mg/dL Calcium 8.2 L (8.4-10.2) mg/dL AST 26 (17-59) U/L ALT 23 (4-49) U/L Alkaline Phosphatase 78 (38-126) U/L Total Protein 5.6 L (6.3-8.2) g/dL Albumin 3.1 L (3.5-5.0) g/dL Calcium panel 03/03/24 Range/Units 13:07 Calcium 8.2 L (8.4-10.2) mg/dL Albumin 3.1 L (3.5-5.0) g/dL Pituitary panel 03/03/24 Range/Units 13:07 Sodium 124 L (137-145) mmol/L Potassium 4.6 (3.5-5.1) mmol/L Chloride 93 L (98-107) mmol/L Carbon Dioxide 28 (22-30) mmol/L BUN 20 (9-20) mg/dL Creatinine 1.01 (0.66-1.25) mg/dL Glucose 133 H (74-99) mg/dL Calcium 8.2 L (8.4-10.2) mg/dL Adrenal panel 03/03/24 Range/Units 13:07 Sodium 124 L (137-145) mmol/L Potassium 4.6 (3.5-5.1) mmol/L Chloride 93 L (98-107) mmol/L Carbon Dioxide 28 (22-30) mmol/L BUN 20 (9-20) mg/dL Creatinine 1.01 (0.66-1.25) mg/dL Glucose 133 H (74-99) mg/dL Calcium 8.2 L (8.4-10.2) mg/dL Total Bilirubin 2.4 H (0.2-1.3) mg/dL AST 26 (17-59) U/L ALT 23 (4-49) U/L Alkaline Phosphatase 78 (38-126) U/L Total Protein 5.6 L (6.3-8.2) g/dL Albumin 3.1 L (3.5-5.0) g/dL Assessment and Plan Assessment: 83 yo male w/ constipation -suppository yielded large bowel movement -patient feels better -trial on clear liquid diet -no surgical intervention Time with Patient: Less than 30
[2024-03-03] MEDS: MECLIZINE 12.5 MG TAB PO SCH (23:49)
[2024-03-04] MEDS: lisinopriL 5 MG TAB PO SCH (08:19)
[2024-03-04] MEDS: DAPAGLIFLOZIN PROPANEDIOL 10 MG TABLET PO SCH (08:19)
[2024-03-04] MEDS: TAMSULOSIN 0.4 MG CAP.ER.24H PO SCH (08:19)
[2024-03-04] MEDS: METOPROLOL SUCCINATE (ER) 50 MG TAB.ER.24H PO SCH (08:19)
[2024-03-04] MEDS: SPIRONOLACTONE 25 MG TAB PO SCH (08:19)
[2024-03-04] MEDS: ASPIRIN 81 MG PO SCH (08:19)
[2024-03-04] MEDS: TORSEMIDE 20 MG TAB PO SCH (08:19)
[2024-03-04] MEDS: LACTULOSE 20 GM/30 ML CUP PO PRN (08:49)
[2024-03-04 09:32] LABS: Basophils # (A) 0.04 X 10*3/uL (0.00-0.10); Basophils % (A) 0.5 %; Eosinophils # (A) 0.12 X 10*3/uL (0.04-0.35); Eosinophils % (A) 1.4 %; HCT 38.6 % (39.6-50.0); HGB 12.8 g/dL (13.0-17.0); Lymphocytes # (A) 0.55 X 10*3/uL (0.90-5.00); Lymphocytes % (A) 6.3 %; MCHC 33.2 g/dL (32.0-37.0); MCV 84.5 FL (80.0-97.0); Mean Platelet Volume 10.8 FL (9.5-12.2); Monocytes # (A) 0.77 X 10*3/uL (0.20-1.00); Monocytes % (A) 8.8 %; NRBC Per 100 WBC 0 X 10*3/uL (0.00-0.01); Neutrophils # (A) 7.21 X 10*3/uL (1.80-7.70); Neutrophils % (A) 82.3 %; Platelet Count 199 X 10*3/uL (140-440); RBC 4.57 X 10*6/uL (4.40-5.60); RDW 18.6 % (11.5-14.5); WBC 8.75 X 10*3/uL (4.50-10.00)
[2024-03-04 10:19] LABS: Blood Urea Nitrogen 15.6 mg/dL (9.0-27.0); Calcium 7.3 mg/dL (8.7-10.3); Carbon Dioxide 23.6 mmol/L (21.6-31.8); Chloride 96 mmol/L (96-109); Glucose 100 mg/dL (70-110); Potassium 5.1 mmol/L (3.5-5.5); Sodium 126 mmol/L (135-145)
--- NOTE | 2024-03-04 12:25 | P.PN ---
Subjective Progress Note Date: 03/04/24 Principal diagnosis: Abdominal pain Patient sitting up in the chair. Says he was feeling well until he ate breakfast. After breakfast developed upper abdominal discomfort and nausea. Prior to that his pain had been gone. Passing flatus. Says he had some vertigo this morning. Objective - Vital Signs Vital signs: Vital Signs Temp 97.5 F L 03/04/24 07:42 Pulse 71 03/04/24 07:42 Resp 18 03/04/24 07:42 BP 147/71 03/04/24 07:42 Pulse Ox 95 03/04/24 07:42 FiO2 Intake & Output 03/03/24 03/04/24 03/04/24 18:59 06:59 18:59 Intake Total 590 Output Total 400 Balance 190 Weight 99.337 kg Intake: Oral 590 Output: Urine 400 Other: # Voids 1 # Bowel Movements 1 1 - Exam Abdomen: Soft, mild distention, mild upper abdominal tenderness, no rebound or guarding - Labs CBC & Chem 7: 03/04/24 05:33 03/04/24 05:33 Labs: Abnormal Lab Results - Last 24 Hours (Table) 03/03/24 03/03/24 03/03/24 Range/Units 13:07 13:07 22:10 WBC 14.8 H (3.8-10.6) k/uL Hgb (13.0-17.0) g/dL Hct (39.6-50.0) % RDW 18.2 H (11.5-15.5) % Immature Gran # (0.00-0.04) X 10*3/uL Neutrophils # 13.1 H (1.3-7.7) k/uL Lymphocytes # 0.5 L (1.0-4.8) k/uL Sodium 124 L (137-145) mmol/L Chloride 93 L (98-107) mmol/L Glucose 133 H (74-99) mg/dL Calcium 8.2 L (8.4-10.2) mg/dL Total Bilirubin 2.4 H (0.2-1.3) mg/dL Total Protein 5.6 L (6.3-8.2) g/dL Albumin 3.1 L (3.5-5.0) g/dL Lipase 311 H (23-300) U/L Ur Specific [place] 1.039 H (1.001-1.035) 03/04/24 03/04/24 Range/Units 05:33 05:33 WBC (3.8-10.6) k/uL Hgb 12.8 L (13.0-17.0) g/dL Hct 38.6 L (39.6-50.0) % RDW 18.6 H (11.5-15.5) % Immature Gran # 0.06 H (0.00-0.04) X 10*3/uL Neutrophils # (1.3-7.7) k/uL Lymphocytes # 0.55 L (1.0-4.8) k/uL Sodium 126 L (137-145) mmol/L Chloride (98-107) mmol/L Glucose (74-99) mg/dL Calcium 7.3 L (8.4-10.2) mg/dL Total Bilirubin (0.2-1.3) mg/dL Total Protein (6.3-8.2) g/dL Albumin (3.5-5.0) g/dL Lipase (23-300) U/L Ur Specific [place] (1.001-1.035) Assessment and Plan (1) Abdominal pain Narrative/Plan: 83-year-old male with abdominal pain and nausea. Decreased to liquid diet. Repeat abdominal x-rays tomorrow. Ambulate. Monitor bowel function. Current Visit: Yes Status: Acute Code(s): R10.9 - UNSPECIFIED ABDOMINAL PAIN SNOMED Code(s): 25512083
[2024-03-04] MEDS: ONDANSETRON 4 MG/2 ML VIAL IVP PRN (12:32)
--- NOTE | 2024-03-04 14:21 | HP ---
HISTORY AND PHYSICAL HISTORY OF PRESENT ILLNESS: He was admitted yesterday, I saw him yesterday on 03/03/2024, date of H and P. Came to emergency room with nausea, vomiting, retching. He was found to be severely constipated, possible bowel obstruction. He was admitted to the hospital. He had metastatic lung cancer. He had a PET scan yesterday and a CAT scan yesterday, may be modifying factors. HOME MEDICINES: 1. Tabrecta. 2. Aldactone. 3. Ranexa. 4. Omeprazole. 5. Farxiga 10 daily. 6. Toprol-XL 50 daily. 7. Singulair 10 daily. 8. Flomax 0.4 daily. 9. Demadex 10 daily. 10.Zestril 5 mg daily. REVIEW OF SYSTEMS: A 14-point review of systems otherwise negative. PAST MEDICAL HISTORY: Atrial fibrillation, coronary artery disease, cancer, eye surgery, GI bleed, hypertension, dyslipidemia, pneumonia, skin disorder, sleep apnea, vascular disorder, vertigo, hiatal hernia, hypertension, COPD. SURGICAL HISTORY: Cataract, stents, hernia repair, bronchoscopy, cholecystectomy, heart catheterization with stent, orthopedic surgery, prostate cancer. PHYSICAL EXAMINATION: VITAL SIGNS: Temp 97.5, pulse 68, respiratory rate 18 to 20, blood pressure 110/98, O2 93. CARDIOVASCULAR: S1, S2. LUNGS: Transmitted upper sounds. GI: Soft. HEMATOLOGY: Negative for Homans. PSYCH: Fair mood and affect. NEUROLOGIC: Alert and oriented x3. LABORATORY DATA: White count 14.8, sodium 124, potassium is 4.6, BUN 20, creatinine 1.01. ASSESSMENT: Abdominal pain, possible bowel obstruction, constipation, GERD, hyponatremia secondary to dehydration, elevated white count secondary to possible ileus and vomiting, non- small lung cancer, COPD. Continue home medicines. Rehydrate. Check labs in the morning. Get surgical consult. Prognosis guarded. MMODL / IJN: [id number] /
[2024-03-04] MEDS: BUDESONIDE 0.5 MG/2 ML NEBU INHALATION SCH (19:51)
[2024-03-04] MEDS: FORMOTEROL FUMARATE 20 MCG/2 ML NEBU INHALATION SCH (19:51)
--- NOTE | 2024-03-04 22:03 | PN ---
PROGRESS NOTE SUBJECTIVE: This is an 83-year-old white male, who is constipated. He had a bowel movement after an enema. Temp 97.5, pulse 71, respiratory rate 16 to 18, blood pressure 147/71, O2 95 on 3 L. He has pneumonia, has elevated procalcitonin level. Surgery is improving, the patient is advancing diet. White count decreased from 14.8 down to . Elevated neutrophil count hematuria. Sodium went from 124 to 126 with IV fluids. Continue to rehydrate him. Checking for orthostatic hypotension due to dizziness. Lipase is 311. We will recheck lipase, diet per surgery, improve his breathing. PROGNOSIS: Guarded. MMODL / IJN: [id number] /
--- NOTE | 2024-03-05 07:31 | XR ---
EXAMINATION TYPE: XR abdomen 2V DATE OF EXAM: 03/05/2024 CLINICAL DATA: 83-year-old male abdominal pain and distention, ileus, PHH COMPARISON: CT 03/03/2024 and previous radiograph to 224 FINDINGS: Asymmetric elevation right hemidiaphragm. Possible trace right pleural effusion with patchy right basilar opacity. Small bowel loops dilated to 4.8 cm and scattered colonic distention as well particularly in the righ t side of the abdomen. Multiple air-fluid levels throughout. No evidence for free intraperitoneal air. IMPRESSION: 1. Dilated small bowel and air distended colon especially in the right-side of the abdomen. Small bow el loops dilated up to 4.8 cm versus 4.[address] of 03/03/2024. Consider ongoing generalized ileus. 2. Postsurgical change and volume loss at the right base with small effusion and adjacent atelectasis and/or consolidation.
[2024-03-05 08:37] LABS: Basophils # (A) 0.04 X 10*3/uL (0.00-0.10); Basophils % (A) 0.5 %; Eosinophils # (A) 0.12 X 10*3/uL (0.04-0.35); Eosinophils % (A) 1.4 %; HCT 40.2 % (39.6-50.0); HGB 12.5 g/dL (13.0-17.0); Lymphocytes # (A) 0.45 X 10*3/uL (0.90-5.00); Lymphocytes % (A) 5.4 %; MCH 26.9 pg (27.0-32.0); MCHC 31.1 g/dL (32.0-37.0); MCV 86.6 FL (80.0-97.0); Mean Platelet Volume 10.5 FL (9.5-12.2); Monocytes # (A) 0.61 X 10*3/uL (0.20-1.00); Monocytes % (A) 7.3 %; NRBC Per 100 WBC 0 X 10*3/uL (0.00-0.01); Neutrophils # (A) 7.05 X 10*3/uL (1.80-7.70); Neutrophils % (A) 84.6 %; Platelet Count 225 X 10*3/uL (140-440); RBC 4.64 X 10*6/uL (4.40-5.60); RDW 18.6 % (11.5-14.5); WBC 8.34 X 10*3/uL (4.50-10.00)
[2024-03-05 08:51] LABS: ALT 23 U/L (10-49); AST 20 U/L (14-35); Albumin 2.8 g/dL (3.8-4.9); Albumin/Globulin Ratio 1.65 Ratio (1.60-3.17); Alkaline Phosphatase 66 U/L (41-126); BUN/Creat Ratio 10.25 Ratio (12.00-20.00); Blood Urea Nitrogen 12.3 mg/dL (9.0-27.0); Calcium 7.7 mg/dL (8.7-10.3); Carbon Dioxide 24.7 mmol/L (21.6-31.8); Chloride 97 mmol/L (96-109); Globulin 1.7 g/dL (1.6-3.3); Glucose 99 mg/dL (70-110); Potassium 4.1 mmol/L (3.5-5.5); Sodium 129 mmol/L (135-145); Total Protein 4.5 g/dL (6.2-8.2)
--- NOTE | 2024-03-05 13:24 | P.PN ---
Subjective Progress Note Date: 03/05/24 CHIEF COMPLAINT: Abdominal pain HISTORY OF PRESENT ILLNESS: Patient had episode of vomiting last night and this morning after taking pill medication. He reports overall his pain and abdominal distention are decreasing since admission. He is having flatus and did have a small bowel movement. Abdominal x-ray reports of dilated small bowel and air distended colon especially in the right side of the abdomen. Small bowel loops dilated up to 4.8 cm versus 4.2 cm. Consider generalized ileus. Afebrile. WBC 8.34 sodium 129 PHYSICAL EXAM: VITAL SIGNS: Reviewed. GENERAL: Well-developed in no acute distress. ABDOMEN: Soft. Mildly distended. Diffuse tenderness NEUROLOGIC: Alert and oriented. Cranial nerves II through XII grossly intact. ASSESSMENT: 1. Abdominal pain 2. Abdominal ileus 3. Hyponatremia 4. History of lung cancer PLAN: -Continue clear liquid diet -Continue IV fluids -Encourage patient to ambulate -Continue to correct sodium level Physician Supervisory It Specialist note has been reviewed by physician. Signing provider agrees with the documented findings, assessment, and plan of care. I have personally seen and examined the patient, reviewed the DIRECTOR SPEECH LANGUAGE /PAs history, exam and MDM and agree with the assessment and plan as written. Based on total visit time, I have performed more than 50% of the visit. As above: Patient's x-rays still show bowel dilation. He is hungry however. No nausea currently. Advance diet to full liquids. Objective - Vital Signs Vital signs: Vital Signs Temp 97.5 F L 03/05/24 12:18 Pulse 86 03/05/24 12:43 Resp 16 03/05/24 12:43 BP 96/60 03/05/24 12:43 Pulse Ox 83 L 03/05/24 12:43 FiO2 Intake & Output 03/04/24 03/05/24 03/05/24 18:59 06:59 18:59 Intake Total 236 Output Total 1 Balance 235 Intake: Oral 236 Output: Stool 1 Other: Voiding Method Toilet # Voids 1 2 # Bowel Movements 1 1 - Labs CBC & Chem 7: 03/05/24 05:29 03/05/24 05:29 Labs: Abnormal Lab Results - Last 24 Hours (Table) 03/05/24 03/05/24 Range/Units 05:29 05:29 Hgb 12.5 L (13.0-17.0) g/dL MCH 26.9 L (27.0-32.0) pg MCHC 31.1 L (32.0-37.0) g/dL RDW 18.6 H (11.5-14.5) % Immature Gran # 0.07 H (0.00-0.04) X 10*3/uL Lymphocytes # 0.45 L (0.90-5.00) X 10*3/uL Sodium 129 L (135-145) mmol/L BUN/Creatinine Ratio 10.25 L (12.00-20.00) Ratio Calcium 7.7 L (8.7-10.3) mg/dL Total Protein 4.5 L (6.2-8.2) g/dL Albumin 2.8 L (3.8-4.9) g/dL
[2024-03-05 15:03] VITALS: BMI 26.6
--- NOTE | 2024-03-05 19:02 | P.CONS ---
History of Present Illness - Reason for Consult Consult date: 03/05/24 known, on active treatment Requesting physician: Kojo Viveros - Chief Complaint abd pain, bloating, diarrhea - History of Present Illness Mr. Bull is an 83-year-old male patient of Dr. Aiken who initially presented with cough and hemoptysis to [facility] August [address]. CT of the chest showed a 7 cm right lower lobe lung mass. 09/01/2023 bronchoscopy and biopsy of the right lower lobe was positive for poorly differentiated non-small cell carcinoma, NOS, TTF1 weakly positive, CK7 positive, focally positive for P40. 09/08/2023 staging PET scan showed uptake in the right lower lobe lung mass otherwise negative. 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 Case was discussed with the thoracic surgeon. It was decided to proceed with surgery first due to hemoptysis and potentially poor tolerance to systemic therapy. 09/29/2023 he had a right lower lobectomy, pathology 6.5 cm non-small cell carcinoma, poorly differentiated with sarcomatoid features extending to the hilar soft tissue, margins negative, 11 regional nodes were negative. Adjuvant therapy was discussed, patient declined. He did well until December 2023, CT of the chest showed new lung nodules, PET scan 12/30/2023 showed diffuse osseous mets, new suspicious lung nodules and hilar nodes, left hepatic lesions and an abdominal node. 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 MRI of the brain 01/07/2024, revealed lobular enhancing mass within the left program arranger space extending into the posterior left maxillary sinus measuring 4.2 x 3.6 cm. He was evaluated by Radiation Oncology, he received 1 week of radiation. Patient started capmatinib oral therapy 01/12 along with bisphosphonate therapy 01/15. Patient currently admitted with abdominal pain, he reports diarrhea on admission, "brown water". He also has flatus that is foul. He denies any black, bloody or mucousy stool, no rectal pain, no pain with bowel movements. No fevers, nausea, vomiting, or chest pain. He has exertional dyspnea since surgery, this is not progressive at this time. Labs on admit reveal a bilirubin of 2.4, otherwise normal LFTs, lipase elevated at 311. Abdomen and pelvis CT reported liquid stool throughout the right side of the colon, small bowel loops dilated up to 4.2 cm consider generalized ileus or enteritis, correlate lactic acid levels to exclude mesenteric ischemia given severe atherosclerotic changes in the SMA. Moderate stool within the rectum. Lactic acid levels were normal. Patient was evaluated by surgery. Patient was doing well until he ate, surgery reduced his diet to liquids. Follow-up abdominal x-ray reporting dilated bowel loops size increased to 4.8 cm. Plan at this time to continue clear liquid diet, patient encouraged to ambulate. When seen today pt stated he was feeling better then on admit. No significant hematological toxicities from treatment, slightly elevated WBC, mostly neutrophils. He has CAD, had cardiac stents in 2003 and 2013. He has a history of prostate cancer, treated with definitive radiation completed 12/12/2018 along with course androgen deprivation therapy, HARPER. Review of Systems 14 point ROS is neg except as stated in HPI Past Medical History Past Medical History: Atrial Fibrillation, Coronary Artery Disease (CAD), Cancer, Eye Disorder, GI Bleed, Hyperlipidemia, Hypertension, Pneumonia, Skin Disorder, Sleep Apnea/CPAP/BIPAP, Vascular Disorder Additional Past Medical History / Comment(s): dx of lung CA Aug 2023, pneumonia Sep 2023, recent dx hemoptysis-post bronchoscopy- Sep 2023, pt states he is still coughing up blood but "It's a lot less.", back pain-increased pain with walking,Vertigo, hiatal hernia, gout, eczema, bleeds easily, uses cpap, history of prostate cancer, cataract lt eye, "I have circulation issues with my legs." "My manager access said we were going to deal with my lungs first before worrying about my legs.", pt reports swelling to bilat legs due to "I injured them falling off a ladder and my legs got stuck in ladder." cancer recent radiation treatment active chemo pills. History of Any Multi-Drug Resistant Organisms: None Reported Past Surgical History: Cholecystectomy, Heart Catheterization With Stent, Orthopedic Surgery, Prostate Surgery Additional Past Surgical History / Comment(s): Recent Bronchoscopy Aug 2023, Exploratory Abdominal Surgery; ORIF titanium/screws in LT Ankle. REPAIR BICEP TENDON LT ARM. RT CATARACT. STENTS X2. cyst removed from under chin, prostate surgery with 44 radiation txs, Watchman procedure, R lung lower lobectomy 09/28 Past Anesthesia/Blood Transfusion Reactions: Previous Problems w/ Anesthesia Additional Past Anesthesia/Blood Transfusion Reaction / Comm: DEVELOPED AFIB AFTER CATARACT SURG 2013. No hx of blood transfusions. Date of Last Stent Placement:: 2013 Past Psychological History: No Psychological Hx Reported Smoking Status: Former smoker Past Alcohol Use History: None Reported Additional Past Alcohol Use History / Comment(s): SMOKED 20 YRS, 1 PPD, QUIT 1979 Past Drug Use History: None Reported - Past Family History Mother Family Medical History: Coronary Artery Disease (CAD), Myocardial Infarction ([place]) Additional Family Medical History / Comment(s): from myocardial infarction at 69 years old Father Family Medical History: Coronary Artery Disease (CAD), Myocardial Infarction ([place]) Additional Family Medical History / Comment(s): from myocardial infarction at 69 years old Medications and Allergies Home Medications Medication Instructions Recorded Confirmed Type Ranolazine [Ranexa] 500 mg PO HS 09/03/17 03/03/24 History Spironolactone [Aldactone] 25 mg PO DAILY 11/18/23 03/03/24 History Capmatinib Hydrochloride [Tabrecta] 200 mg PO BID 02/14/24 03/03/24 History Omeprazole 40 mg PO HS 02/14/24 03/03/24 History Aspirin 81 mg PO DAILY 90 Days #90 tab 02/18/24 03/03/24 Rx Dapagliflozin Propanediol [Farxiga] 10 mg PO DAILY 90 Days #90 tab 02/18/24 03/03/24 Rx Ipratropium-Albuterol Nebulize 3 ml INHALATION RT-QID 30 Days 02/18/24 03/03/24 Rx [Duoneb 0.5 mg-3 mg/3 ml Soln] #120 each Lactulose [Cephulac] 20 gm PO TID PRN 90 Days #90 ml 02/18/24 03/03/24 Rx Metoprolol Succinate (ER) [Toprol 50 mg PO DAILY 90 Days #90 tab 02/18/24 03/03/24 Rx XL] Montelukast [Singulair] 10 mg PO HS 90 Days #90 tab 02/18/24 03/03/24 Rx Nystatin 100,000 Unit/ml Susp 500,000 unit PO QID 1 Days #300 ml 02/18/24 03/03/24 Rx [Mycostatin Oral Susp] Tamsulosin [Flomax] 0.4 mg PO PC-BRKFST 90 Days #90 cap 02/18/24 03/03/24 Rx lisinopriL [Zestril] 5 mg PO DAILY 90 Days #90 tab 02/18/24 03/03/24 Rx Apixaban [Eliquis] 5 mg PO BID 03/03/24 03/03/24 History Meclizine [Antivert] 12.5 mg PO Q8H 03/03/24 03/03/24 History Torsemide [Demadex] 20 mg PO DAILY 03/03/24 03/03/24 History guaiFENesin-DM 600/30MG [Mucinex 2 tab PO Q12HR 03/03/24 03/03/24 History Dm] Allergies Allergy/AdvReac Type Severity Reaction Status Date / Time capecitabine Allergy Rash/Hives Verified 03/03/24 15:58 cortisone [Cortisone] Allergy Swelling Verified 03/03/24 15:58 and itching surgical tape Allergy "Broke Uncoded 03/03/24 15:58 out" "Got infection" Physical Exam Vitals: Vital Signs Temp Pulse Resp BP Pulse Ox 03/05/24 07:03 97.9 F 77 20 125/75 94 L 03/05/24 01:23 97.0 F L 73 20 116/67 96 03/04/24 20:00 97.6 F 63 16 99/64 95 03/04/24 13:30 97.8 F 59 L 17 98/64 97 Intake and Output 03/04/24 03/05/24 03/05/24 22:59 06:59 14:59 Intake Total 236 Balance 236 Intake: Oral 236 Other: Voiding Method Toilet # Voids 2 # Bowel Movements 1 - Constitutional General appearance: cooperative, no acute distress, obese - EENT Eyes: anicteric sclerae, EOMI ENT: hearing grossly normal, normal oropharynx - Neck Neck: no lymphadenopathy - Respiratory Respiratory: right: CTA, left: diminished - Cardiovascular Rhythm: irregularly irregular Heart sounds: normal: S1, S2 Abnormal Heart Sounds: no systolic murmur, no diastolic murmur, no rub, no S3 Gallop, no S4 Gallop, no click, no other leg Peripheral Edema: bilateral: None - Gastrointestinal General gastrointestinal: no absent bowel sounds, no decreased bowel sounds, distended, no hepatomegaly, no hyperactive bowel sounds, normal bowel sounds, no organomegaly, no rigid, no scaphoid, soft, no splenomegaly, no tenderness, no umbilical hernia, no ventral hernia - Integumentary Integumentary: normal - Neurologic Neurologic: CNII-XII intact - Musculoskeletal Musculoskeletal: generalized weakness, strength equal bilaterally - Psychiatric Psychiatric: A&O x's 3, appropriate affect, intact judgment & insight Results CBC & Chem 7: 03/05/24 05:29 03/05/24 05:29 Labs: Abnormal Lab Results - Last 24 Hours (Table) 03/05/24 03/05/24 Range/Units 05:29 05:29 Hgb 12.5 L (13.0-17.0) g/dL MCH 26.9 L (27.0-32.0) pg MCHC 31.1 L (32.0-37.0) g/dL RDW 18.6 H (11.5-14.5) % Immature Gran # 0.07 H (0.00-0.04) X 10*3/uL Lymphocytes # 0.45 L (0.90-5.00) X 10*3/uL Sodium 129 L (135-145) mmol/L BUN/Creatinine Ratio 10.25 L (12.00-20.00) Ratio Calcium 7.7 L (8.7-10.3) mg/dL Total Protein 4.5 L (6.2-8.2) g/dL Albumin 2.8 L (3.8-4.9) g/dL Abdominal x-ray: report reviewed CT scan - abdomen: report reviewed CT scan - pelvis: report reviewed Assessment and Plan (1) Abdominal pain Current Visit: Yes Status: Acute Priority: High Code(s): R10.9 - UNSPECIFIED ABDOMINAL PAIN SNOMED Code(s): 12348030 (2) Ileus Current Visit: Yes Status: Acute Priority: High Code(s): K56.7 - ILEUS, UNSPECIFIED SNOMED Code(s): 128048757 (3) Non-small cell lung cancer (NSCLC) Current Visit: Yes Status: Acute Priority: High Code(s): C34.90 - MALIGNANT NEOPLASM OF UNSP PART OF UNSP BRONCHUS OR LUNG SNOMED Code(s): 157224804 Plan: Abdominal pain, elevated bilirubin and lipase -Concerns for Capmatinib toxicity as drug can be associated with hepatotoxicity and diarrhea. This has been held -Patient has been on treatment for about [address] Aiken is suggesting a dose reduction to reduce side effects so that he can stay on treatment. Patient agrees. This new prescription has been sent to his specialty pharmacy. -It has been documented in the discharge plan patient is to discontinue the 400 mg capmatinib/tabrecta twice a day dose. -Surgery following patient closely for possible ileus. Patient is on clear liquids currently and tolerating. His complaints seem to be slightly improved today. Will defer management of the same to Surgery. -Will continue to follow patient throughout his hospital course. Metastatic non-small cell lung cancer -Diagnosis and treatment as described in HPI. 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 -Concerns of the above symptoms are related to the medication. Capmatinib has been held -Patient had a restaging PET scan with significant improvement in FDG activity in all of his lesions! FDG avidity in double digits and now are single digits. Some lesions were not even visible anymore. Reviewed these results with the patient. He was very pleased -Continue Zometa every 6 weeks for bone mets to radiation reduce the risk of pathological fracture
--- NOTE | 2024-03-05 23:51 | PN ---
PROGRESS NOTE SUBJECTIVE: History of . His sodium is improving up to 129. He still has ileus on abdominal x-rays. Surgery is watching him at this point. He is on clear liquids, advance as tolerated. OBJECTIVE: CARDIOVASCULAR: S1, S2. LUNGS: Clear. GI: Soft. HEMATOLOGY: Negative for Homans. PSYCH: Fair mood and affect. Acute nausea and vomiting, acute abdominal pain, ileus, COPD, lung cancer. Prognosis guarded. Follow up in next 24 to 48 hours. Please see further orders. Monitor signs of ileus. Please see further orders. MMODL / IJN: [id number] /
[2024-03-06 08:07] LABS: Anisocytosis Slight; Basophils % (A) 0 %; Eosinophils # (A) 0.1 k/uL (0-0.7); Eosinophils % (A) 2 %; HCT 42.3 % (39.0-53.0); Lymphocytes # (A) 0.9 k/uL (1.0-4.8); Lymphocytes % (A) 12 %; MCH 28.7 pg (25.0-35.0); MCHC 33.2 g/dL (31.0-37.0); MCV 86.5 fL (80.0-100.0); Monocytes % (A) 15 %; Neutrophils # (A) 4.9 k/uL (1.3-7.7); Neutrophils % (A) 69 %; Platelet Count 227 k/uL (150-450); Poikilocytosis Slight; RBC 4.89 m/uL (4.30-5.90); RDW 18.2 % (11.5-15.5); WBC 7.1 k/uL (3.8-10.6)
[2024-03-06 08:14] LABS: ALT 23 U/L (4-49); African American GFR (CKD) >90 (>60 ml/min/1.73 sqM); Albumin 2.4 g/dL (3.5-5.0); Albumin/Globulin Ratio 0.9; Anion Gap 1 mmol/L; Blood Urea Nitrogen 9 mg/dL (9-20); Calcium 7.7 mg/dL (8.4-10.2); Carbon Dioxide 24 mmol/L (22-30); Chloride 103 mmol/L (98-107); Globulin 2.7 g/dL; Glucose 70 mg/dL (74-99); Non-African American GFR(CKD) 85 (>60 ml/min/1.73 sqM); Sodium 128 mmol/L (137-145); Total Bilirubin 1.6 mg/dL (0.2-1.3); Total Protein 5.1 g/dL (6.3-8.2)
[2024-03-06 08:22] LABS: AST 53 U/L (17-59); Alkaline Phosphatase 44 U/L (38-126); Potassium 5.4 mmol/L (3.5-5.1)
[2024-03-06] MEDS: SPIRONOLACTONE 25 MG TAB PO SCH (11:43)
[2024-03-06] MEDS: MIDODRINE 5 MG TAB PO SCH (11:43)
[2024-03-06] MEDS: METOPROLOL SUCCINATE (ER) 25 MG TAB.ER.24H PO SCH (11:44)
[2024-03-06] MEDS ORDERED: LORazepam 2 MG/ML INJ IM PRN (12:57)
--- NOTE | 2024-03-06 15:21 | P.PN ---
Subjective Progress Note Date: 03/06/24 Principal diagnosis: Abdominal pain Patient says he feels better today. Tolerating full liquids. Still feels bloated. Mild soreness. White blood cell count 7.1. Objective - Vital Signs Vital signs: Vital Signs Temp 97.6 F 03/06/24 12:35 Pulse 88 03/06/24 12:35 Resp 17 03/06/24 12:35 BP 102/65 03/06/24 12:35 Pulse Ox 95 03/06/24 12:35 FiO2 Intake & Output 03/05/24 03/06/24 03/06/24 18:59 06:59 18:59 Output Total 1 Balance -1 Weight 99.337 kg Output: Stool 1 Other: Voiding Method Toilet # Voids 2 2 # Bowel Movements 2 1 - Exam Abdomen: Soft, distended, mild diffuse tenderness - Labs CBC & Chem 7: 03/06/24 06:46 03/06/24 06:46 Labs: Abnormal Lab Results - Last 24 Hours (Table) 03/06/24 03/06/24 Range/Units 06:46 06:46 RDW 18.2 H (11.5-15.5) % Lymphocytes # 0.9 L (1.0-4.8) k/uL Sodium 128 L (137-145) mmol/L Potassium 5.4 H (3.5-5.1) mmol/L Glucose 70 L (74-99) mg/dL Calcium 7.7 L (8.4-10.2) mg/dL Total Bilirubin 1.6 H (0.2-1.3) mg/dL Total Protein 5.1 L (6.3-8.2) g/dL Albumin 2.4 L (3.5-5.0) g/dL Assessment and Plan (1) Ileus Narrative/Plan: 83-year-old male with ileus versus small bowel obstruction. Symptoms persisting. Continue full liquids. Will order small bowel series for tomorrow. Current Visit: Yes Status: Acute Priority: High Code(s): K56.7 - ILEUS, UNSPECIFIED SNOMED Code(s): 278327100
--- NOTE | 2024-03-06 17:40 | P.PN ---
Subjective Progress Note Date: 03/06/24 Principal diagnosis: abd pain, N,V, on oral treatment for met NSCLC Pt reporting he feels pretty good today, belly feels better, no V, mild diarrhea, flatus is still very foul. He states he was having N,V after taking tabrecta, this has been stopped. He is tolerating his advancing diet Objective - Vital Signs Vital signs: Vital Signs Temp 98.5 F 03/06/24 07:25 Pulse 97 03/06/24 11:39 Resp 17 03/06/24 07:25 BP 112/66 03/06/24 11:39 Pulse Ox 96 03/06/24 08:07 FiO2 Intake & Output 03/05/24 03/06/24 03/06/24 18:59 06:59 18:59 Output Total 1 Balance -1 Weight 99.337 kg Output: Stool 1 Other: Voiding Method Toilet # Voids 2 2 # Bowel Movements 2 1 - Constitutional General appearance: Present: cooperative, no acute distress, obese - EENT Eyes: Present: anicteric sclerae, EOMI ENT: Present: hearing grossly normal - Respiratory Details: resp even and unlabored - Gastrointestinal General gastrointestinal: Present: normal bowel sounds, soft, tenderness. Absent: absent bowel sounds, decreased bowel sounds, distended, hepatomegaly, hyperactive bowel sounds, organomegaly, rigid, scaphoid, splenomegaly, umbilical hernia, ventral hernia - Integumentary Integumentary: Present: pale - Neurologic Neurologic: Present: CNII-XII intact - Musculoskeletal Musculoskeletal: Present: strength equal bilaterally - Psychiatric Psychiatric: Present: A&O x's 3, appropriate affect, intact judgment & insight - Labs CBC & Chem 7: 03/06/24 06:46 03/06/24 06:46 Labs: Abnormal Lab Results - Last 24 Hours (Table) 03/06/24 03/06/24 Range/Units 06:46 06:46 RDW 18.2 H (11.5-15.5) % Lymphocytes # 0.9 L (1.0-4.8) k/uL Sodium 128 L (137-145) mmol/L Potassium 5.4 H (3.5-5.1) mmol/L Glucose 70 L (74-99) mg/dL Calcium 7.7 L (8.4-10.2) mg/dL Total Bilirubin 1.6 H (0.2-1.3) mg/dL Total Protein 5.1 L (6.3-8.2) g/dL Albumin 2.4 L (3.5-5.0) g/dL Assessment and Plan (1) Abdominal pain Current Visit: Yes Status: Acute Priority: High Code(s): R10.9 - UNSPECIFIED ABDOMINAL PAIN SNOMED Code(s): 89125775 (2) Ileus Current Visit: Yes Status: Acute Priority: High Code(s): K56.7 - ILEUS, UNSPECIFIED SNOMED Code(s): 288981650 (3) Non-small cell lung cancer (NSCLC) Current Visit: Yes Status: Acute Priority: High Code(s): C34.90 - MALIGNANT NEOPLASM OF UNSP PART OF UNSP BRONCHUS OR LUNG SNOMED Code(s): 106002013 Plan: Abdominal pain, elevated bilirubin and lipase -Concerns for Capmatinib toxicity as drug can be associated with hepatotoxicity and diarrhea. This has been held -Patient has been on treatment for about [address] Aiken is suggesting a dose reduction to reduce side effects so that he can stay on treatment. Patient agrees. This new prescription has been sent to his specialty pharmacy. -It has been documented in the discharge plan patient is to discontinue the 400 mg capmatinib/tabrecta twice a day dose. -Surgery following patient closely for possible ileus. Patient is on advancing diet as tolerated and doing good. Abd c/o less today. Will defer management of the same to Surgery. -Will continue to follow patient throughout his hospital course. Metastatic non-small cell lung cancer -Diagnosis and treatment as described in HPI. 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 -Concerns of the above symptoms are related to the medication. Capmatinib has been held -Patient had a restaging PET scan with significant improvement in FDG activity in all of his lesions! FDG avidity in double digits and now are single digits. Some lesions were not even visible anymore. Reviewed these results with the patient previously. He was very pleased -Continue Zometa every 6 weeks for bone mets to radiation reduce the risk of pathological fracture Doctor attests: I performed a history and physical examination of this patient, developed impression and plan of care. Discussed with dictator. I agree with dictators note, documented as a scribe.
[2024-03-06] MEDS: LORazepam 2 MG/ML INJ IV PRN (22:03)
--- NOTE | 2024-03-06 23:10 | PN ---
PROGRESS NOTE SUBJECTIVE: Den Bull is requesting anxiety medicine today due to severe upset over talking with his . His hemoglobin is back up to 14, his sodium is still low 128, potassium 5.4, GFR is improved. He is still a little dehydrated. He has ileus. Waiting for surgical recommendations on ileus. Passive bowel movements with some ileus. daily as per Dr. Hanna. He is on clear liquids at this time. Continue current treatment. Prognosis guarded. MMODL / IJN: [id number] /
--- NOTE | 2024-03-07 14:12 | P.PN ---
Subjective Progress Note Date: 03/07/24 CHIEF COMPLAINT: Abdominal pain HISTORY OF PRESENT ILLNESS: Patient is lying in bed comfortably. He is u ndergoing a small bowel follow-through series today. He is passing a small amount of flatus. He does report that he is feeling the need to possibly have a bowel movement. Does complain of some mild lower abdominal pain. Small bowel follow-through final results are pending. Afebrile. No new labs PHYSICAL EXAM: VITAL SIGNS: Reviewed. GENERAL: Well-developed in no acute distress. ABDOMEN: Soft. Mildly distended. Mild tenderness with palpation to lower abdomen NEUROLOGIC: Alert and oriented. Cranial nerves II through XII grossly intact. ASSESSMENT: 1. Abdominal pain 2. Abdominal ileus 3. Hyponatremia 4. History of lung cancer PLAN: -Keep patient n.p.o. while undergoing the small bowel follow-through x-ray -Encourage patient to increase activity level -Continue to correct sodium level Physician Financial Project Manager note has been reviewed by physician. Signing provider agrees with the documented findings, assessment, and plan of care. Objective - Vital Signs Vital signs: Vital Signs Temp 98.2 F 03/07/24 12:51 Pulse 76 03/07/24 12:51 Resp 15 03/07/24 12:51 BP 115/71 03/07/24 12:51 Pulse Ox 92 L 03/07/24 12:51 FiO2 Intake & Output 03/06/24 03/07/24 03/07/24 18:59 06:59 18:59 Output Total 1 Balance -1 Output: Stool 1 Other: Voiding Method Toilet # Voids 3 1 - Labs CBC & Chem 7: 03/06/24 06:46 03/06/24 06:46
--- NOTE | 2024-03-07 14:31 | FL ---
EXAMINATION TYPE: FL small bowel follow through DATE OF EXAM: 03/07/2024 CLINICAL HISTORY: Abdominal pain. TECHNIQUE: A single contrast small bowel follow through is performed utilizing barium. COMPARISON: None FINDINGS: Active Directory Specialist image of the abdomen shows dilated small bowel loops. Surgical clips in the upper ab domen. Degenerative change of the spine with diffuse osteopenia. Right lower lobe consolidation and s mall pleural effusion. Bilateral hip arthropathy. The small bowel study shows length transit to the colon 3 hours 30 minutes. Contrast does extend into the colon. There are dilated small bowel loops measuring up to 5cm in diameter. A definitive transit ion point is not seen. IMPRESSION: Normal small bowel follow through. Right basilar consolidation. IMPRESSION: 1. Delayed transit through the small bowel at 3 hours 30 minutes. Dilated small bowel loops with no d efinitive transition point. Differential diagnosis includes partial obstruction versus ileus\enteriti s. Correlate clinically.
[2024-03-07 15:09] LABS: Anisocytosis Slight; Basophils % (A) 0 %; Eosinophils # (A) 0.1 k/uL (0-0.7); Eosinophils % (A) 1 %; HGB 13.8 gm/dL (13.0-17.5); Lymphocytes # (A) 0.4 k/uL (1.0-4.8); Lymphocytes % (A) 5 %; MCHC 31.5 g/dL (31.0-37.0); Monocytes # (A) 0.6 k/uL (0-1.0); Monocytes % (A) 7 %; Neutrophils % (A) 85 %; Platelet Count 226 k/uL (150-450); RBC 4.94 m/uL (4.30-5.90); RDW 18.4 % (11.5-15.5); WBC 8.3 k/uL (3.8-10.6)
[2024-03-07 15:21] LABS: ALT 20 U/L (4-49); AST 29 U/L (17-59); African American GFR (CKD) >90 (>60 ml/min/1.73 sqM); Albumin 2.6 g/dL (3.5-5.0); Albumin/Globulin Ratio 1.1; Alkaline Phosphatase 70 U/L (38-126); Anion Gap 6 mmol/L; Blood Urea Nitrogen 7 mg/dL (9-20); Calcium 8.3 mg/dL (8.4-10.2); Carbon Dioxide 20 mmol/L (22-30); Chloride 105 mmol/L (98-107); Globulin 2.4 g/dL; Glucose 85 mg/dL (74-99); Non-African American GFR(CKD) >90 (>60 ml/min/1.73 sqM); Potassium 4.1 mmol/L (3.5-5.1); Sodium 131 mmol/L (137-145); Total Bilirubin 1.2 mg/dL (0.2-1.3)
--- NOTE | 2024-03-07 17:25 | P.PN ---
Subjective Progress Note Date: 03/07/24 Principal diagnosis: abd pain, N,V, on oral treatment for met NSCLC Pt seen in follow-up, he remains very pleasant. He reports 1 episode of vomiting last night, no bowel movement yet, he is having significant gas. He has taken the prep for small bowel x-ray. Denies fevers, no new or worsening pain reported. Objective - Vital Signs Vital signs: Vital Signs Temp 98.2 F 03/07/24 12:51 Pulse 76 03/07/24 12:51 Resp 15 03/07/24 12:51 BP 115/71 03/07/24 12:51 Pulse Ox 92 L 03/07/24 12:51 FiO2 Intake & Output 03/06/24 03/07/24 03/07/24 18:59 06:59 18:59 Output Total 1 Balance -1 Output: Stool 1 Other: Voiding Method Toilet # Voids 3 1 - Constitutional General appearance: Present: cooperative, no acute distress, obese - EENT Eyes: Present: anicteric sclerae, EOMI ENT: Present: hearing grossly normal - Respiratory Details: Respirations unlabored at rest - Cardiovascular Rhythm: regular - Peripheral edema leg Peripheral Edema: bilateral: None - Gastrointestinal General gastrointestinal: Present: distended, hyperactive bowel sounds, soft, tenderness (Very mild, suprapubic, left lower quadrant area) - Integumentary Integumentary: Present: normal - Neurologic Neurologic: Present: CNII-XII intact - Musculoskeletal Musculoskeletal: Present: strength equal bilaterally - Psychiatric Psychiatric: Present: A&O x's 3, appropriate affect, intact judgment & insight - Labs CBC & Chem 7: 03/07/24 14:50 03/07/24 14:50 Labs: Abnormal Lab Results - Last 24 Hours (Table) 03/07/24 03/07/24 Range/Units 14:50 14:50 RDW 18.4 H (11.5-15.5) % Lymphocytes # 0.4 L (1.0-4.8) k/uL Sodium 131 L (137-145) mmol/L Carbon Dioxide 20 L (22-30) mmol/L BUN 7 L (9-20) mg/dL Creatinine 0.59 L (0.66-1.25) mg/dL Calcium 8.3 L (8.4-10.2) mg/dL Total Protein 5.0 L (6.3-8.2) g/dL Albumin 2.6 L (3.5-5.0) g/dL - Imaging and Cardiology Small bowel x-ray reports delayed transit through the small bowel at 3 hours and 30 minutes. Dilated small bowel loops with no definitive transition point. Differential diagnosis includes partial obstruction versus ileus/enteritis Assessment and Plan (1) Abdominal pain Current Visit: Yes Status: Acute Priority: High Code(s): R10.9 - UNSPECIFIED ABDOMINAL PAIN SNOMED Code(s): 18571031 (2) Ileus Current Visit: Yes Status: Acute Priority: High Code(s): K56.7 - ILEUS, UNSPECIFIED SNOMED Code(s): 863398911 (3) Non-small cell lung cancer (NSCLC) Current Visit: Yes Status: Acute Priority: High Code(s): C34.90 - MALIGNANT NEOPLASM OF UNSP PART OF UNSP BRONCHUS OR LUNG SNOMED Code(s): 786241131 Plan: Abdominal pain, elevated bilirubin and lipase -Concerns for Capmatinib toxicity as drug can be associated with hepatotoxicity and diarrhea. This has been held -Surgery following patient closely for possible ileus. Patient had a small bowel x-ray today, n.p.o., results pending. Abd c/o stable, not progressive. Patient is having significant flatus. Will defer management of the same to S urgery. -LFTs and bilirubin are now normal. Lipase is normal. Metastatic non-small cell lung cancer -Diagnosis and treatment as described in consultation. 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 -Concerns above symptoms are related to the medication. Capmatinib has been held -Patient has been on treatment for about [address] Aiken is suggesting a dose reduction to reduce side effects so that he can stay on treatment. Patient agrees. This new prescription has been sent to his specialty pharmacy. -It has been documented in the discharge plan patient is to discontinue the 400 mg capmatinib/tabrecta twice a day dose. -Patient had a restaging PET scan just prior to admit, with significant improvement in FDG activity in all of his lesions! FDG avidity in double digits and now are single digits. Some lesions were not even visible anymore. Reviewed these results with the patient previously. He was very pleased -Continue Zometa every 6 weeks for bone mets to radiation reduce the risk of pathological fracture
[2024-03-08 08:01] LABS: ALT 17 U/L (4-49); AST 25 U/L (17-59); African American GFR (CKD) >90 (>60 ml/min/1.73 sqM); Albumin 2.2 g/dL (3.5-5.0); Alkaline Phosphatase 62 U/L (38-126); Anion Gap 2 mmol/L; Blood Urea Nitrogen 5 mg/dL (9-20); Carbon Dioxide 24 mmol/L (22-30); Chloride 105 mmol/L (98-107); Globulin 2.1 g/dL; Glucose 79 mg/dL (74-99); Non-African American GFR(CKD) >90 (>60 ml/min/1.73 sqM); Sodium 131 mmol/L (137-145); Total Protein 4.3 g/dL (6.3-8.2)
[2024-03-08 10:51] LABS: Basophils # (A) 0.03 X 10*3/uL (0.00-0.10); Basophils % (A) 0.4 %; Eosinophils # (A) 0.08 X 10*3/uL (0.04-0.35); HCT 37.6 % (39.6-50.0); HGB 12.3 g/dL (13.0-17.0); Lymphocytes # (A) 0.35 X 10*3/uL (0.90-5.00); Lymphocytes % (A) 4.4 %; MCH 28.4 pg (27.0-32.0); MCHC 32.7 g/dL (32.0-37.0); MCV 86.8 FL (80.0-97.0); Mean Platelet Volume 10.3 FL (9.5-12.2); Monocytes # (A) 0.68 X 10*3/uL (0.20-1.00); Monocytes % (A) 8.6 %; NRBC Per 100 WBC 0 X 10*3/uL (0.00-0.01); Neutrophils # (A) 6.69 X 10*3/uL (1.80-7.70); Neutrophils % (A) 84.8 %; Platelet Count 205 X 10*3/uL (140-440); RBC 4.33 X 10*6/uL (4.40-5.60); RDW 18.7 % (11.5-14.5); WBC 7.89 X 10*3/uL (4.50-10.00)
--- NOTE | 2024-03-08 15:12 | P.PN ---
Subjective Progress Note Date: 03/08/24 CHIEF COMPLAINT: Abdominal pain HISTORY OF PRESENT ILLNESS: The patient is a 83-year-old male being seen for nausea vomiting abdominal pain. He reports he is tolerated lunch including pudding, milk, tomato soup. He reports his abdominal pain is moderately improved. He completed a series of small bowel imaging. He reports moderate progression of his cancer. Has history of lung cancer. ROS: No new chest pain. No reports of hemoptysis. No fevers or chills. PHYSICAL EXAM: VITAL SIGNS: Reviewed CONSTITUTIONAL: Well developed and in no acute distress. EYES: Conjuctivae without sclera icterus. Extraocular movements grossly intact. HEAD, EARS, NOSE, THROAT: Moist buccal mucosa. Head is atraumatic, normocephalic. Hears conversational speech. No nasal drainage. Edentulous RESPIRATORY: Non-labored respirations and equal bilateral excursions. CARDIOVASCULAR: Palpable 2+ radial pulses. ABDOMEN: Obese. Nondistended. No peritonitis. MUSCULOSKELETAL: No gross deformity of the lower extremities noted. No clubbing. No cyanosis. SKIN: Good skin turgor. Well perfused. NEUROLOGIC: Cranial nerves II through XII grossly intact. No focal or lateralizing signs. PSYCH: Appropriate affect. Alert and oriented to person, place and time. CLINICAL LABS: Reviewed. WBC normal. Hemoglobin down 13.8-12.3, anemia. STUDIES: Small bowel series independently reviewed demonstrate features of diverticulosis involving the ascending colon. Contrast goes through the small bowel and enters into the ascending colon. No free air. No focal transition point for complete obstruction identified. This is my independent interpretation. REPORT: Small bowel report demonstrates ileus versus enteritis versus partial bowel obstruction. ASSESSMENT: 1. Nausea vomiting abdominal pain 2. Lung cancer 3. Intractable nausea and vomiting 4. Anemia 5. Ileus 6. Edentulous PLAN: 1. On exam, features more consistent with ileus versus bowel obstruction his imaging studies demonstrates no complete bowel obstruction. 2. Continue full liquids as patient reports he has difficulty with solid food and is edentulous. 3. Stable for discharge from a surgical standpoint when medically stable. Objective - Vital Signs Vital signs: Vital Signs Temp 97.6 F 03/08/24 12:25 Pulse 62 03/08/24 07:48 Resp 16 03/08/24 12:25 BP 128/76 03/08/24 12:25 Pulse Ox 100 03/08/24 12:25 FiO2 Intake & Output 03/07/24 03/08/24 03/08/24 18:59 06:59 18:59 Intake Total 960 Output Total 1 Balance 960 -1 Intake: Oral 960 Output: Stool 1 Other: Voiding Method Toilet Toilet # Voids 1 2 # Bowel Movements 1 - Labs CBC & Chem 7: 03/08/24 06:17 03/08/24 06:17 Labs: Abnormal Lab Results - Last 24 Hours (Table) 03/07/24 03/07/24 03/08/24 Range/Units 14:50 14:50 06:17 RBC 4.33 L (4.40-5.60) X 10*6/uL Hgb 12.3 L (13.0-17.0) g/dL Hct 37.6 L (39.6-50.0) % RDW 18.4 H 18.7 H (11.5-15.5) % Immature Gran # 0.06 H (0.00-0.04) X 10*3/uL Lymphocytes # 0.4 L 0.35 L (1.0-4.8) k/uL Sodium 131 L (137-145) mmol/L Carbon Dioxide 20 L (22-30) mmol/L BUN 7 L (9-20) mg/dL Creatinine 0.59 L (0.66-1.25) mg/dL Calcium 8.3 L (8.4-10.2) mg/dL Total Protein 5.0 L (6.3-8.2) g/dL Albumin 2.6 L (3.5-5.0) g/dL 03/08/24 Range/Units 06:17 RBC (4.40-5.60) X 10*6/uL Hgb (13.0-17.0) g/dL Hct (39.6-50.0) % RDW (11.5-15.5) % Immature Gran # (0.00-0.04) X 10*3/uL Lymphocytes # (1.0-4.8) k/uL Sodium 131 L (137-145) mmol/L Carbon Dioxide (22-30) mmol/L BUN 5 L (9-20) mg/dL Creatinine 0.63 L (0.66-1.25) mg/dL Calcium 8.0 L (8.4-10.2) mg/dL Total Protein 4.3 L (6.3-8.2) g/dL Albumin 2.2 L (3.5-5.0) g/dL
--- NOTE | 2024-03-08 23:51 | PN ---
PROGRESS NOTE SUBJECTIVE: An 83-year-old white male admitted with acute nausea and vomiting and acute abdominal pain. OBJECTIVE: VITAL SIGNS: Temperature 97.5, O2 is 91% on 4 L, 97 on 4 L. Blood pressure is a little low at 80s to 90s/60s, pulse 82, respiratory rate 72. His small-bowel follow-through did show some ileus. He has abdominal ileus, abdominal pain, hyponatremia, history of lung cancer, small-bowel follow-through, corrected sodium level might be safe to do anything surgically with his bowel obstruction. Usha Shrestha saw the patient per Hematology/Oncology. He vomited once last night. No bowel movement. Non-small lung cancer, ileus, abdominal pain. He has had MET 14 skipping mutation, started on targeted agent capmatinib. They thought that ileus might have been from that medicine, it was held. The patient has been on treatment for [address] Aiken did a dose reduction due to current side effects. Restaging a PET scan just prior to admit with significant improvement in all of his lesions to single digits. Some lesions are gone. , reduce the risk of pathological fracture. PROGNOSIS: Guarded. MMODL / IJN: [id number] /
--- NOTE | 2024-03-09 01:48 | PN ---
PROGRESS NOTE SUBJECTIVE: This 83-year-old white male admitted with ileus which he has had difficulty fixing. He had a small bowel followthrough test, which showed delayed transit through the small bowel, dilated small bowel with no definitive transition point, partial obstruction versus ileus, enteritis, it could be secondary to chemo which they have stopped. Waiting for positive white count, hemoglobin is 12.3. Sodium 131, potassium 4.0, BUN 5, creatinine 0.63, albumin is 2.2. He is to get some protein supplements and get his nutrition better. Prognosis guarded. He is saturating 97 on 4 L. Blood pressure is low at 80s to 90s to 100s/60s. Possibly midodrine for orthostatic hypotension. PROGNOSIS: Guarded. TRAN / TANO: [id number] /
[2024-03-09 08:45] VITALS: BP 125/67; PULSE 84; RESP 18; TEMP 97.8
--- NOTE | 2024-03-09 11:55 | PN ---
PROGRESS NOTE An 83-year-old white male, still has ileus, abdominal pain, nausea, vomiting. He has been passing gas for the past 24 to 48 hours. Small-bowel follow-through was reviewed. He has ileus, nausea, vomiting, abdominal pain, lung cancer, anemia, ileus. No complete bowel obstruction on films. Possible ileus. Full liquid. Stable for discharge. Blood pressure 120/76, temp 97.6, pulse 62, respiratory rate 16. Possible discharge home today. Continue current treatments at home. PROGNOSIS: Guarded. MMODL / IJN: [id number] /
--- NOTE | 2024-03-14 10:30 | CDI ---
Documentation Clarification Form Date: 03/14/2024 10:27:31 AM From: Kathie Matias RN, CCDS Phone: [phone] Admit Date: 03/05/2024 10:46:00 AM Patient Name: Den Bull Visit Number: [id number] Discharge Date: 03/09/2024 11:30:00 AM ATTENTION: The Clinical Documentation Specialists (CDI) and [facility] Coding Staff appreciate your assistance in clarifying documentation. Please respond to the clarification below the line at the bottom and electronically sign. The CDI & [facility] Coding staff will review the response and follow-up if needed. Please note: Queries are made part of the Legal Health Record. If you have any questions, please contact the author of this message via ITS. Dr. Kojo Viveros Pneumonia is documented in your 03/04 progress note which may lack sufficient clinical evidence/support in the medical record. Additional clarification is requested. History/Risk Factors: lung cancer with current radiation, A fib, CAD, GI bleed, HLD, HTN, and pneumonia. Presented with abdominal pain and vomiting. Admitted with ileus Clinical Indicators: 03/03 WBC 14.8, no procalcitonin level drawn 03/03 CT A/P: There is new endobronchial opacification right bronchus intermedius with worsening aeration at the medial right base probably due to atelectasis or developing focal pneumonia 03/04 IM: "He has pneumonia, has elevated procalcitonin level." Treatment: IV Rocephin 1gm Q24H 03/04-03/09; Mucinex DM 2 tabs Q12H 03/03-03/09; 1L 0.9 NS IV boluls x1 on 03/03 Please clarify if pneumonia is a valid diagnosis? [ ] No, pneumonia was ruled out [ ] Yes, pneumonia was present as evidence by (additional clinical support): [ ] Other (please specify diagnosis) [ ] Unable to determine MTDD
--- NOTE | 2024-03-15 13:28 | PN ---
PROGRESS NOTE Positive for pneumonia. MMODL / IJN: [id number] /
== END 2024-03-09 11:30 | disposition home or self-care (01) | DRG 388 ==
LOC: EC 12:43 → 5NMEDONC 15:13 → OBSVTOIN 03-05 10:46
PROVIDERS: ADMIT Family Medicine; ATTEND Family Medicine
DX: K56.7 Ileus, unspecified (principal); J18.9 Pneumonia, unspecified organism; C34.90 Malignant neoplasm of unspecified part of unspecified bronchus or lung; E87.1 Hypo-osmolality and hyponatremia; D64.9 Anemia, unspecified; E78.5 Hyperlipidemia, unspecified; E86.0 Dehydration; F41.9 Anxiety disorder, unspecified; I10 Essential (primary) hypertension; J44.9 Chronic obstructive pulmonary disease, unspecified; I25.10 Atherosclerotic heart disease of native coronary artery without angina pectoris; I48.91 Unspecified atrial fibrillation; Z79.01 Long term (current) use of anticoagulants; Z79.82 Long term (current) use of aspirin; Z79.84 Long term (current) use of oral hypoglycemic drugs; Z79.899 Other long term (current) drug therapy; Z82.49 Family history of ischemic heart disease and other diseases of the circulatory system; Z85.118 Personal history of other malignant neoplasm of bronchus and lung; Z85.46 Personal history of malignant neoplasm of prostate; Z92.3 Personal history of irradiation; Z95.5 Presence of coronary angioplasty implant and graft; Z87.891 Personal history of nicotine dependence; Z88.8 Allergy status to other drugs, medicaments and biological substances
CPT/HCPCS: 36415; 74019; 74177; 74250; 80048; 80053; 81003; 83605; 83690; 85025; 94760; 96361; 96374; 96375; 99285

== ENCOUNTER → 2024-06-07 | Outpatient (CLI) | payer MEDICARE ==
--- NOTE | 2024-06-09 13:23 | PE ---
EXAMINATION TYPE: PET CT fusion skull to thigh DATE OF EXAM: 06/07/2024 CLINICAL INDICATION:Male, 83 years old with history of C34.31 lung ca; TECHNIQUE: Following the intravenous administration of 13.06 mCi of F-18 FDG, whole body images are performed from the skull base to the midthigh. Images are reviewed on the computer in the coronal, axial, and sagittal planes. Reconstructed rotating images are created on independent workstation and reviewed on the computer. A non-contrast CT is performed in conjunction with the PET scan. Glucose level 105 mg/dL CT DLP: 922 mGycm, Automated exposure control for dose reduction was used. COMPARISON: CT None, PET/CT 03/02/2024, MRI: None FINDINGS: Mediastinal SUV mean is 2.3. Hepatic parenchyma SUV mean is 2.5. 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 * Right scalene muscle focal uptake max SUV 4.0. Not seen on prior possibly related to muscle strain . CHEST, MEDIASTINUM, AND HILAR REGION: * Postsurgical changes to the right lower lobe with right pleural effusion which is decreased in siz e now than. Mild uptake in the pleura right lateral aspect of the lung base max SUV 4.3, previously 5 .2. * Right lower lobe peripheral lateral nodule remains nonvisualized. No uptake within the right shoulder girdle. ABDOMEN AND PELVIS: * LEFT hepatic lobe remains not visualized, * Lymph node anterior to the left hepatic lobe remains not visualized * Small focus of uptake near the diaphragm on the left remains nodular visualized.. MUSCULOSKELETAL STRUCTURES: Scattered abnormal FDG activity within the osseous structures. Examples include: * Posterior right rib 3 max SUV 3.1, previously 5.1, 11.7 . * Anterior to the right rib 2 in the intercostal space Max SUV 3.7. Unclear if there is respiratory motion mismatched * Right scapula 2.4, previously 3.1, 17.3. * Right anterior rib 2 max SUV 2.9, previously 3.1, 23.4. * Right rib 6 fracture max SUV 3.5, previously 4.5 17.7. * Right obturator externus muscle max SUV 1.8, previously 2.6, 19.3 Possibly relating to previous mu scle injury. * Left iliac bone max SUV 1.6, previously 2.4, 17.0 * Posterior elements of T10 on the right max SUV 2.9, previously 5.8, 21.1 * Sternum max SUV 2.2, previously 2.6, 18.5. OTHER CT: Enlarging left pleural effusion now small. Right aphakia. Atherosclerosis of the vasculatur e including the carotid bifurcations the intracranial arteries and coronary arteries along with other s. The bladder is distended. Prostatomegaly. Bilateral fat-containing inguinal hernias. The gallbladd er surgically absent. Heart is enlarged for size. Atrial appendage occlusion device present. Mild social media developer ecomastia changes bilaterally. IMPRESSION: 1. Continued positive response to therapy with decreasing metabolically active lesions throughout e exam. 2. New small left pleural effusion. [facility], Workstation: [id number], 06/09/2024 1:20 PM
== END | disposition home or self-care (01) ==
LOC: RADPETMAIN 08:19
PROVIDERS: ATTEND Internal Medicine Hematology & Oncology
DX: C34.31 Malignant neoplasm of lower lobe, right bronchus or lung (principal); J90 Pleural effusion, not elsewhere classified
CPT/HCPCS: 78815; A9552

== ENCOUNTER 2024-08-23 07:44 | Emergency (ER) | payer MEDICARE ==
[2024-08-23 07:54] VITALS: RESP 16
[2024-08-23 08:01] VITALS: TEMP 97.5
--- NOTE | 2024-08-23 08:41 | ED ---
General Adult HPI - General Chief complaint: Abdominal Pain Stated complaint: tremors,constipation Time Seen by Provider: 08/23/24 07:56 Source: patient, EMS, RN notes reviewed, old records reviewed - History of Present Illness Initial comments: 84-year-old male presenting for evaluation of constipation. Patient states that he has had no significant bowel movement over the past 1 week. He states he has been manually disimpacting himself and states that the stool is very hard. He denies vomiting. He does report abdominal distention. He states that he he strains to have a bowel movement and develops a tremor at this time. No other symptoms. No chest pain no difficulty breathing. - Related Data Home Medications Medication Instructions Recorded Confirmed Ranolazine [Ranexa] 500 mg PO BID 09/03/17 08/23/24 Apixaban [Eliquis] 5 mg PO BID 03/03/24 08/23/24 Capmatinib Hydrochloride [Tabrecta] 200 mg PO BID 08/23/24 08/23/24 Cefdinir [Omnicef] 300 mg PO DAILY 08/23/24 08/23/24 Clopidogrel [Plavix] 75 mg PO DAILY 08/23/24 08/23/24 Colchicine 0.6 mg PO DAILY 08/23/24 08/23/24 Furosemide [Lasix] 40 mg PO TID 08/23/24 08/23/24 Metoprolol Tartrate [Lopressor] 25 mg PO BID 08/23/24 08/23/24 Midodrine [ProAmatine] 5 mg PO TID 08/23/24 08/23/24 Potassium Chloride ER [K-Dur 10] 10 meq PO BID 08/23/24 08/23/24 Sildenafil [Revatio] 20 mg PO DAILY 08/23/24 08/23/24 Spironolactone [Aldactone] 25 mg PO DAILY 08/23/24 08/23/24 allopurinoL [Zyloprim] 300 mg PO DAILY 08/23/24 08/23/24 Previous Rx's Medication Instructions Recorded Montelukast [Singulair] 10 mg PO HS 90 Days #90 tab 02/18/24 Docusate [Colace] 100 mg PO BID #60 capsule 08/23/24 polyethylene glycoL 3350 [Miralax] 17 gm PO DAILY #527 gm 08/23/24 Allergies Allergy/AdvReac Type Severity Reaction Status Date / Time capecitabine Allergy Rash/Hives Verified 08/23/24 09:52 cortisone [Cortisone] Allergy Swelling Verified 08/23/24 09:52 and itching surgical tape Allergy "Broke Uncoded 03/03/24 15:58 out" "Got infection" Review of Systems ROS Statement: Those systems with pertinent positive or pertinent negative responses have been documented in the HPI. ROS Other: All systems not noted in ROS Statement are negative. Past Medical History Past Medical History: Atrial Fibrillation, Coronary Artery Disease (CAD), Cancer, Eye Disorder, GI Bleed, Hyperlipidemia, Hypertension, Pneumonia, Skin Disorder, Sleep Apnea/CPAP/BIPAP, Vascular Disorder Additional Past Medical History / Comment(s): dx of lung CA Aug 2023, pneumonia Sep 2023, recent dx hemoptysis-post bronchoscopy- Sep 2023, pt states he is still coughing up blood but "It's a lot less.", back pain-increased pain with walking,Vertigo, hiatal hernia, gout, eczema, bleeds easily, uses cpap, history of prostate cancer, cataract lt eye, "I have circulation issues with my legs." "My wrapper and preserver said we were going to deal with my lungs first before worrying about my legs.", pt reports swelling to bilat legs due to "I injured them falling off a ladder and my legs got stuck in ladder." cancer recent radiation treatment active chemo pills. History of Any Multi-Drug Resistant Organisms: None Reported Past Surgical History: Cholecystectomy, Heart Catheterization With Stent, Orthopedic Surgery, Prostate Surgery Additional Past Surgical History / Comment(s): Recent Bronchoscopy Aug 2023, Exploratory Abdominal Surgery; ORIF titanium/screws in LT Ankle. REPAIR BICEP TENDON LT ARM. RT CATARACT. STENTS X2. cyst removed from under chin, prostate surgery with 44 radiation txs, Watchman procedure, R lung lower lobectomy 09/28 Past Anesthesia/Blood Transfusion Reactions: Previous Problems w/ Anesthesia Additional Past Anesthesia/Blood Transfusion Reaction / Comment(s): DEVELOPED AFIB AFTER CATARACT SURG 2013. No hx of blood transfusions. Date of Last Stent Placement:: 2013 Past Psychological History: No Psychological Hx Reported Smoking Status: Former smoker Past Alcohol Use History: None Reported Past Drug Use History: None Reported - Past Family History Mother Family Medical History: Coronary Artery Disease (CAD), Myocardial Infarction (CT) Additional Family Medical History / Comment(s): from myocardial infarction at 69 years old Father Family Medical History: Coronary Artery Disease (CAD), Myocardial Infarction (CT) Additional Family Medical History / Comment(s): from myocardial infarction at 69 years old Course Vital Signs 08/23/24 08/23/24 08/23/24 07:49 08:00 09:02 Temperature 97.4 F L 97.5 F L Pulse Rate 88 70 83 Respiratory 16 16 16 Rate Blood Pressure 136/77 136/77 124/67 O2 Sat by Pulse 100 99 Oximetry 08/23/24 08/23/24 10:19 11:24 Temperature Pulse Rate 85 81 Respiratory 16 16 Rate Blood Pressure 165/84 172/90 O2 Sat by Pulse 99 100 Oximetry Medical Decision Making - Medical Decision Making Was pt. sent in by a medical professional or institution (, PA, [employer], urgent care, hospital, or detention...) When possible be specific @ -No Did you speak to anyone other than the patient for history (EMS, parent, family, police, friend...)? What history was obtained from this source @ -No Did you review nursing and triage notes (agree or disagree)? Why? @ -I reviewed and agree with nursing and triage notes Were old charts reviewed (outside hosp., previous admission, EMS record, old EKG, old radiological studies, urgent care reports/EKG's, detention records)? Report findings @ -No old charts were reviewed Differential Abdominal Pain Men: Appendicitis, cholecystitis, diverticulosis, ischemic bowel, pancreatitis, hepatitis, UTI, gastroenteritis, AAA, incarcerated hernia, bowel obstruction, constipation, inflammatory bowel, hepatitis, peptic ulcer disease, splenic infarction, perforated viscus, testicular torsion, this is not meant to be an all-inclusive list EKG interpreted by me (3pts min.). @Atrial fibrillation rate of 63, QRS duration 100, QTc 400, no ST segment elevat ion. X-rays interpreted by me (1pt min.). @ -[KUB shows distention of small bowel with retained stool CT interpreted by me (1pt min.). @CT showing stool burden in the rectum and sigmoid colon without other acute process U/S interpreted by me (1pt. min.). @ -None done What testing was considered but not performed or refused? (CT, X-rays, U/S, labs)? Why? @ -None What meds were considered but not given or refused? Why? @ -None Did you discuss the management of the patient with other professionals (professionals i.e. , PA, [employer], lab, RT, psych nurse, director social service, pulp grinder, teacher, field crop technical officer, patient case manager)? Give summary @ -No Was smoking cessation discussed for >3mins.? @ -No Was critical care preformed (if so, how long)? @ -No Were there social determinants of health that impacted care today? How? (Homelessness, low income, unemployed, alcoholism, drug addiction, transportatio n, low edu. Level, literacy, decrease access to med. care, fci, rehab)? @ -No Was there de-escalation of care discussed even if they declined (Discuss DNR or withdrawal of care, Hospice)? DNR status @ -No What co-morbidities impacted this encounter? (DM, HTN, Smoking, COPD, CAD, Cancer, CVA, ARF, Chemo, Hep., AIDS, mental health diagnosis, sleep apnea, morbid obesity)? @ -None Was patient admitted / discharged? Hospital course, mention meds given and route, prescriptions, significant lab abnormalities, going to OR and other pertinent info. @ -[84-year-old male with chief complaint of constipation and required self disimpaction over the past 1 week. X-ray is concerning for possible obstructive process, CT was ordered as well as laboratory testing. CT shows moderate stool burden consistent with constipation without other acute findings. He has a normal white blood cell count, stable hemoglobin, normal lactic acid. Given enema in the emergency department with significant stool output. Patient placed on stool softeners and MiraLAX. Will follow-up with primary care provider. Undiagnosed new problem with uncertain prognosis? @ -No Drug Therapy requiring intensive monitoring for toxicity (Heparin, Nitro, Insulin, Cardizem)? @ -No Were any procedures done? @ -No Diagnosis/symptom? @ -[Constipation Acute, or Chronic, or Acute on Chronic? @Acute Uncomplicated (without systemic symptoms) or Complicated (systemic symptoms)? @ -Default Side effects of treatment? @ -No Exacerbation, Progression, or Severe Exacerbation? @ -No Poses a threat to life or bodily function? How? (Chest pain, USA, CT, pneumonia, PE, COPD, DKA, ARF, appy, cholecystitis, CVA, Diverticulitis, Homicidal, Suicidal, threat to staff... and all critical care pts) @ -No - Lab Data Result diagrams: 08/23/24 08:45 08/23/24 08:45 Lab Results 08/23/24 08/23/24 08/23/24 Range/Units 08:45 08:45 08:45 WBC 8.9 (3.8-10.6) k/uL RBC 4.29 L (4.30-5.90) m/uL Hgb 13.3 (13.0-17.5) gm/dL Hct 40.6 (39.0-53.0) % MCV 94.6 (80.0-100.0) fL MCH 30.9 (25.0-35.0) pg MCHC 32.6 (31.0-37.0) g/dL RDW 16.5 H (11.5-15.5) % Plt Count 229 (150-450) k/uL MPV 8.5 Neutrophils % 84 % Lymphocytes % 7 % Monocytes % 7 % Eosinophils % 1 % Basophils % 0 % Neutrophils # 7.5 (1.3-7.7) k/uL Lymphocytes # 0.6 L (1.0-4.8) k/uL Monocytes # 0.6 (0-1.0) k/uL Eosinophils # 0.1 (0-0.7) k/uL Basophils # 0.0 (0-0.2) k/uL Anisocytosis Slight PT 14.1 H (10.0-12.5) sec INR 1.3 H (<1.2) APTT 27.9 (22.0-30.0) sec Sodium 135 L (137-145) mmol/L Potassium 3.5 (3.5-5.1) mmol/L Chloride 96 L (98-107) mmol/L Carbon Dioxide 37 H (22-30) mmol/L Anion Gap 2 mmol/L BUN 24 H (9-20) mg/dL Creatinine 1.46 H (0.66-1.25) mg/dL Est GFR (CKD-EPI)AfAm 50 (>60 ml/min/1.73 sqM) Est GFR (CKD-EPI)NonAf 44 (>60 ml/min/1.73 sqM) Glucose 98 (74-99) mg/dL Plasma Lactic Acid Yeison (0.7-2.0) mmol/L Calcium 8.2 L (8.4-10.2) mg/dL Total Bilirubin 1.9 H (0.2-1.3) mg/dL AST 30 (17-59) U/L ALT 17 (4-49) U/L Alkaline Phosphatase 83 (38-126) U/L Total Protein 5.6 L (6.3-8.2) g/dL Albumin 3.2 L (3.5-5.0) g/dL 08/23/24 Range/Units 08:45 WBC (3.8-10.6) k/uL RBC (4.30-5.90) m/uL Hgb (13.0-17.5) gm/dL Hct (39.0-53.0) % MCV (80.0-100.0) fL MCH (25.0-35.0) pg MCHC (31.0-37.0) g/dL RDW (11.5-15.5) % Plt Count (150-450) k/uL MPV Neutrophils % % Lymphocytes % % Monocytes % % Eosinophils % % Basophils % % Neutrophils # (1.3-7.7) k/uL Lymphocytes # (1.0-4.8) k/uL Monocytes # (0-1.0) k/uL Eosinophils # (0-0.7) k/uL Basophils # (0-0.2) k/uL Anisocytosis PT (10.0-12.5) sec INR (<1.2) APTT (22.0-30.0) sec Sodium (137-145) mmol/L Potassium (3.5-5.1) mmol/L Chloride (98-107) mmol/L Carbon Dioxide (22-30) mmol/L Anion Gap mmol/L BUN (9-20) mg/dL Creatinine (0.66-1.25) mg/dL Est GFR (CKD-EPI)AfAm (>60 ml/min/1.73 sqM) Est GFR (CKD-EPI)NonAf (>60 ml/min/1.73 sqM) Glucose (74-99) mg/dL Plasma Lactic Acid Yeison 1.3 (0.7-2.0) mmol/L Calcium (8.4-10.2) mg/dL Total Bilirubin (0.2-1.3) mg/dL AST (17-59) U/L ALT (4-49) U/L Alkaline Phosphatase (38-126) U/L Total Protein (6.3-8.2) g/dL Albumin (3.5-5.0) g/dL Disposition Clinical Impression: Constipation Disposition: HOME SELF-CARE Condition: Fair Instructions (If sedation given, give patient instructions): Constipation (ED) Prescriptions: Docusate [Colace] 100 mg PO BID #60 capsule polyethylene glycoL 3350 [Miralax] 17 gm PO DAILY #527 gm Is patient prescribed a controlled substance at d/c from ED?: No Referrals: Kojo Viveros MD [Primary Care Provider] - 1-2 days Time of Disposition: 11:40
--- NOTE | 2024-08-23 08:45 | XR ---
EXAMINATION TYPE: XR KUB DATE OF EXAM: 08/23/2024 8:37 AM COMPARISON: 03/07/2024 CLINICAL INDICATION: Male, 84 years old with history of constiption; [facility] TECHNIQUE: One radiographic view of the abdomen was obtained. FINDINGS: Gaseous distention of bowel measuring up to 7.9 cm in the right lower abdomen. Stool seen w ithin the colon and rectum noted. IMPRESSION: Moderate amount of stool with gaseous distention of loop of what is felt to be small bowel in the mid abdomen. Further evaluation the abdomen with CT abdomen and pelvis with IV and oral contrast may be of benefit. [facility], , 08/23/2024 8:43 AM
[2024-08-23 08:59] LABS: Anisocytosis Slight; Basophils % (A) 0 %; Eosinophils # (A) 0.1 k/uL (0-0.7); Eosinophils % (A) 1 %; HCT 40.6 % (39.0-53.0); HGB 13.3 gm/dL (13.0-17.5); Lymphocytes # (A) 0.6 k/uL (1.0-4.8); Lymphocytes % (A) 7 %; MCH 30.9 pg (25.0-35.0); MCHC 32.6 g/dL (31.0-37.0); MCV 94.6 fL (80.0-100.0); Mean Platelet Volume 8.5; Monocytes # (A) 0.6 k/uL (0-1.0); Monocytes % (A) 7 %; Neutrophils # (A) 7.5 k/uL (1.3-7.7); Neutrophils % (A) 84 %; Platelet Count 229 k/uL (150-450); RBC 4.29 m/uL (4.30-5.90); RDW 16.5 % (11.5-15.5); WBC 8.9 k/uL (3.8-10.6)
[2024-08-23 09:08] LABS: INR 1.3 (<1.2); Partial Thromboplastin Time 27.9 sec (22.0-30.0); Prothrombin Time 14.1 sec (10.0-12.5)
[2024-08-23 09:09] LABS: ALT 17 U/L (4-49); AST 30 U/L (17-59); African American GFR (CKD) 50 (>60 ml/min/1.73 sqM); Albumin 3.2 g/dL (3.5-5.0); Alkaline Phosphatase 83 U/L (38-126); Anion Gap 2 mmol/L; Blood Urea Nitrogen 24 mg/dL (9-20); Calcium 8.2 mg/dL (8.4-10.2); Carbon Dioxide 37 mmol/L (22-30); Chloride 96 mmol/L (98-107); Glucose 98 mg/dL (74-99); Non-African American GFR(CKD) 44 (>60 ml/min/1.73 sqM); Potassium 3.5 mmol/L (3.5-5.1); Sodium 135 mmol/L (137-145); Total Bilirubin 1.9 mg/dL (0.2-1.3); Total Protein 5.6 g/dL (6.3-8.2)
--- NOTE | 2024-08-23 09:44 | CT ---
EXAMINATION TYPE: CT abdomen pelvis w con DATE OF EXAM: 08/23/2024 9:35 AM COMPARISON: 03/03/2024 CLINICAL INDICATION: Male, 84 years old with history of ab pain/distention, constipation, distention TECHNIQUE:CT scan of the abdomen and pelvis is performed without Oral Contrast and with IV Contrast, patient injected with 80 mL of Isovue 300. CT DLP: 1456.9 mGycm, Automated exposure control for dose reduction was used. FINDINGS: LUNG BASES-: No visible nodule. No infiltrate. Partially imaged gynecomastia. Small bilateral left g reater than right pleural effusions. There is evidence of cardiomegaly. LIVER/GB: The gallbladder is surgically absent. No space occupying hepatic lesion. Biliary tree is of normal caliber. PANCREAS: No inflammation. No distinct mass. SPLEEN: No splenic enlargement. No lesion seen. ADRENALS: No nodule. No thickening. KIDNEYS/BLADDER: No hydronephrosis. No nephrolithiasis. No distinct renal mass. Urinary bladder g rossly unremarkable. BOWEL: Normal appendix. Normal bowel caliber. No inflammation. Moderate fecal burden about the rect osigmoid region. GENITAL ORGANS: No gross abnormality. LYMPH NODES: No greater than 1cm abdominal or pelvic lymph nodes are appreciated. AORTA: Atheromatous changes noted of the abdominal aorta with dense calcifications at the origin and proximal component of the SMA. OSSEOUS STRUCTURES: No significant abnormality is seen. OTHER: No significant additional abnormality is seen. IMPRESSION: 1. Moderate fecal burden rectosigmoid region. 2.Atheromatous changes noted of the abdominal aorta with dense calcifications at the origin and proxi mal component of the SMA. [facility], , 08/23/2024 9:42 AM
[2024-08-23] MEDS: SODIUM CHLORIDE 0.9% 500 ML 500 ML IV ONE (10:19)
[2024-08-23 11:25] VITALS: BP 172/90; PULSE 81
== END 2024-08-23 12:46 | disposition home or self-care (01) ==
LOC: EC 07:44
DX: K59.00 Constipation, unspecified (principal); Z88.8 Allergy status to other drugs, medicaments and biological substances; Z91.09 Other allergy status, other than to drugs and biological substances; Z87.891 Personal history of nicotine dependence
CPT/HCPCS: 36415; 93005; 80053; 83605; 85025; 85610; 85730; 74018; 74177; 99285; Q9967

== ENCOUNTER 2024-12-14 04:08 | Inpatient (IN) | payer MEDICARE ==
[2024-12-14] MEDS: HYDROcodone/APAP 5-325MG 1 EACH TAB PO STA (04:35)
--- NOTE | 2024-12-14 04:59 | CT ---
EXAM: CT Head and Cervical Spine Without Intravenous Contrast CLINICAL HISTORY: ITS.REASON CT Reason: fall injury TECHNIQUE: Axial computed tomography images of the head/brain and cervical spine without intravenous contrast. CTDI is 45.2 mGy and DLP is 1155 mGy-cm. This CT exam was performed using one or more of the following dose reduction techniques: automated exposure control, adjustment of the mA and/or kV according to patient size, and/or use of iterative reconstruction technique. COMPARISON: Prior dated 11/10/2019 FINDINGS: Brain: Mild volume loss with prominent ventricles and sulci. Mild periventricular white matter hypoattenuation likely reflects chronic small vessel disease. No hemorrhage. Ventricles: See above. Skull: No acute fracture. Sinuses: Mucus retention cysts in the left maxillary and sphenoid sinuses. No sinus fluid levels. Mastoid air cells: Unremarkable as visualized. No mastoid effusion. Orbits: Right intraocular lens implant, stable. Vertebrae: Unremarkable. No acute fracture. Normal alignment. Discs/spinal canal/neural foramina: Degenerative changes of the spine. No severe canal stenosis. Soft tissues: Unremarkable. IMPRESSION: 1. No evidence of acute intracranial abnormality or skull fracture. 2. No acute findings in the cervical spine.
--- NOTE | 2024-12-14 05:39 | CT ---
EXAM: CT Thoracic Spine Without Intravenous Contrast CLINICAL HISTORY: ITS.REASON CT Reason: fall injury TECHNIQUE: Axial computed tomography images of the thoracic spine without intravenous contrast. CTDI is 29 mGy and DLP is 1351 mGy-cm. This CT exam was performed using one or more of the following dose reduction techniques: automated exposure control, adjustment of the mA and/or kV according to patient size, and/or use of iterative reconstruction technique. COMPARISON: No relevant prior studies available. 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 Acute appearing fracture of the anterior osteophyte at the T4-5 level extending into the disc space and the T5 vertebral body. No retropulsion. Discs/spinal canal/neural foramina: No acute findings. No spinal canal stenosis. Soft tissues: Unremarkable. Pleural space: Small pleural effusions. Tubes, lines and devices: Aortic calcifications. Coronary calcifications. Left atrial appendage occlusion device. IMPRESSION: Acute appearing fracture of the anterior osteophyte at the T4-5 level extending into the disc space and the T5 vertebral body. No retropulsion.
[2024-12-14] MEDS: MORPHINE SULFATE 4 MG/ML SYRINGE IV STA (06:24)
--- NOTE | 2024-12-14 07:55 | ED ---
Fall HPI - General Chief Complaint: Fall Stated Complaint: Fall on thinners Time Seen by Provider: 12/14/24 04:10 Source: EMS Mode of arrival: EMS - History of Present Illness Initial Comments: This patient is an 84-year-old man brought by ambulance to have evaluation after he had ground-level fall. The patient states he has been somewhat unsteady and he had actually fallen a couple of times over the previous 3 to 4 days. Patient complains mainly of pain in the upper thoracic back in the midline. He does not believe he struck his head. No loss consciousness. No neck pain. No chest abdomen or extremity pain. The patient states that he did injure his great toe and had some bleeding but has not really causing pain. MD Complaint: fall -: hour(s) Fall From: standing When Fall Occurred: recurrent falls Fall Witnessed: no Place Fall Occurred: home Loss of Consciousness: none Prolonged Down Time?: no Symptoms Prior to Fall: none Location: back Severity: moderate Quality: aching Context: tripped/slipped - Related Data Home Medications Medication Instructions Recorded Confirmed Ranolazine [Ranexa] 500 mg PO BID 09/03/17 12/14/24 Apixaban [Eliquis] 5 mg PO BID 03/03/24 12/14/24 Capmatinib Hydrochloride [Tabrecta] 200 mg PO BID 08/23/24 12/14/24 Clopidogrel [Plavix] 75 mg PO DAILY 08/23/24 12/14/24 Colchicine 0.6 mg PO DAILY 08/23/24 12/14/24 Furosemide [Lasix] 40 mg PO BID@0900,1400 08/23/24 12/14/24 Midodrine [ProAmatine] 5 mg PO TID 08/23/24 12/14/24 Sildenafil [Revatio] 20 mg PO DAILY 08/23/24 12/14/24 allopurinoL [Zyloprim] 300 mg PO DAILY 08/23/24 12/14/24 Budesonide [Pulmicort] 0.5 mg INHALATION RT-BID 12/14/24 12/14/24 Cephalexin [Keflex] 500 mg PO BID 12/14/24 12/14/24 Ipratropium-Albuterol Nebulize 3 ml INHALATION RT-TID 12/14/24 12/14/24 [Duoneb 0.5 mg-3 mg/3 ml Soln] Metoprolol Tartrate [Lopressor] 50 mg PO BID 12/14/24 12/14/24 Omeprazole 40 mg PO HS 12/14/24 12/14/24 ondansetron HCL [Zofran] 8 mg PO Q6H PRN 12/14/24 12/14/24 Previous Rx's Medication Instructions Recorded Montelukast [Singulair] 10 mg PO HS 90 Days #90 tab 02/18/24 Acetaminophen Tab [Tylenol] 650 mg PO Q6HR PRN tab 12/16/24 HYDROcodone/APAP 5-325MG [[place] 1 each PO Q4HR PRN tab 12/16/24 5-325] Lactulose [Cephulac] 20 gm PO TID PRN 90 Days #90 ml 12/16/24 Mag Hydrox/Al Hydrox/Simeth 15 ml PO Q6HR PRN ml 12/16/24 [Maalox] Potassium Chloride ER [K-Dur 20] 40 meq PO DAILY 90 Days #90 tab 12/16/24 Tamsulosin [Flomax] 0.4 mg PO DAILY cap 12/18/24 Allergies Allergy/AdvReac Type Severity Reaction Status Date / Time capecitabine Allergy Rash/Hives Verified 12/14/24 08:34 cortisone [Cortisone] Allergy Swelling Verified 12/14/24 08:34 and itching surgical tape Allergy "Broke Uncoded 12/14/24 08:34 out" "Got infection" Review of Systems ROS Statement: Those systems with pertinent positive or pertinent negative responses have been documented in the HPI. ROS Other: All systems not noted in ROS Statement are negative. Constitutional: Denies: fever, weakness Respiratory: Denies: cough, dyspnea Cardiovascular: Denies: chest pain, syncope Gastrointestinal: Denies: abdominal pain, vomiting, diarrhea Genitourinary: Denies: hematuria, testicular pain Musculoskeletal: Reports: as per HPI, back pain Skin: Denies: rash Neurological: Denies: headache, weakness Past Medical History Past Medical History: Atrial Fibrillation, Coronary Artery Disease (CAD), Cancer, Eye Disorder, GI Bleed, Hyperlipidemia, Hypertension, Pneumonia, Skin Disorder, Sleep Apnea/CPAP/BIPAP, Vascular Disorder Additional Past Medical History / Comment(s): dx of lung CA Aug 2023, pneumonia Sep 2023, recent dx hemoptysis-post bronchoscopy- Sep 2023, pt states he is still coughing up blood but "It's a lot less.", back pain-increased pain with walking,Vertigo, hiatal hernia, gout, eczema, bleeds easily, uses cpap, history of prostate cancer, cataract lt eye, "I have circulation issues with my legs." "My international trade teacher said we were going to deal with my lungs first before worrying about my legs.", pt reports swelling to bilat legs due to "I injured them falling off a ladder and my legs got stuck in ladder." cancer recent radiation treatment active chemo pills. History of Any Multi-Drug Resistant Organisms: None Reported Past Surgical History: Cholecystectomy, Heart Catheterization With Stent, Orthopedic Surgery, Prostate Surgery Additional Past Surgical History / Comment(s): Recent Bronchoscopy Aug 2023, Exploratory Abdominal Surgery; ORIF titanium/screws in LT Ankle. REPAIR BICEP TENDON LT ARM. RT CATARACT. STENTS X2. cyst removed from under chin, prostate surgery with 44 radiation txs, Watchman procedure, R lung lower lobectomy 09/28 Past Anesthesia/Blood Transfusion Reactions: Previous Problems w/ Anesthesia Additional Past Anesthesia/Blood Transfusion Reaction / Comment(s): DEVELOPED AFIB AFTER CATARACT SURG 2013. No hx of blood transfusions. Date of Last Stent Placement:: 2013 Past Psychological History: No Psychological Hx Reported Smoking Status: Former smoker Past Alcohol Use History: None Reported Past Drug Use History: None Reported - Past Family History Mother Family Medical History: Coronary Artery Disease (CAD), Myocardial Infarction (MD) Additional Family Medical History / Comment(s): from myocardial infarction at 69 years old Father Family Medical History: Coronary Artery Disease (CAD), Myocardial Infarction (MD) Additional Family Medical History / Comment(s): from myocardial infarction at 69 years old General Exam General appearance: alert, in no apparent distress Head exam: Present: atraumatic, normocephalic Eye exam: Present: normal appearance. Absent: scleral icterus, conjunctival injection Neck exam: Present: normal inspection, full ROM. Absent: tenderness Respiratory exam: Present: normal lung sounds bilaterally. Absent: respiratory distress, wheezes, rales, rhonchi, stridor, chest wall tenderness, accessory muscle use Cardiovascular Exam: Present: regular rate, normal rhythm, normal heart sounds, systolic murmur. Absent: diastolic murmur, rubs, gallop GI/Abdominal exam: Present: soft. Absent: distended, tenderness, guarding, rebound, rigid, mass Extremities exam: Present: normal inspection, normal capillary refill. Absent: pedal edema, calf tenderness Back exam: Present: normal inspection, vertebral tenderness (Minimal tenderness at approximately T4 level, no palpable deformity or step-off.). Absent: CVA tenderness (R), CVA tenderness (L) Neurological exam: Present: alert. Absent: motor sensory deficit Skin exam: Present: warm, dry, intact, normal color. Absent: rash Course Vital Signs 12/14/24 12/14/24 12/14/24 04:11 07:19 09:00 Temperature 97.9 F 97.5 F L Pulse Rate 70 60 60 Respiratory 20 20 16 Rate Blood Pressure 114/60 136/62 143/78 O2 Sat by Pulse 98 100 98 Oximetry Medical Decision Making - Medical Decision Making The patient had CT scan of the brain and C-spine that I interpreted as negative for acute bony injury, negative for acute intracranial hemorrhage, mass effect or midline shift. The patient had CT scan of the back that does show fracture of the T5 vertebral body, no spinal canal intrusion. Was pt. sent in by a medical professional or institution (, PA, [employer], urgent care, hospital, or [facility]...) When possible be specific @ -[No] Did you speak to anyone other than the patient for history (EMS, parent, family, police, friend...)? What history was obtained from this source @ -[No] Did you review nursing and triage notes (agree or disagree)? Why? @ -[I reviewed and agree with nursing and triage notes] Were old charts reviewed (outside hosp., previous admission, EMS record, old EKG, old radiological studies, urgent care reports/EKG's, [facility] records)? Report findings @ -[No old charts were reviewed] Differential Diagnosis (chest pain, altered mental status, abdominal pain women, abdominal pain men, vaginal bleeding, weakness, fever, dyspnea, syncope, headache, dizziness, GI bleed, back pain, seizure, CVA, palpatations, mental health, musculoskeletal)? @ -[Differential Back Pain: Strain, zoster, cauda equina syndrome, epidural abscess, vertebral osteomyelitis, discitis, fracture, subluxation, disc herniation, DJD, spinal stenosis, dissection, AAA, pancreatitis, peptic ulcer disease, pyelonephritis, kidney stone, this is not meant to be an all-inclusive list. EKG interpreted by me (3pts min.). @ -[I interpreted as above] X-rays interpreted by me (1pt min.). @ -[None done] CT interpreted by me (1pt min.). @ -[I interpreted as above U/S interpreted by me (1pt. min.). @ -[None done] What testing was considered but not performed or refused? (CT, X-rays, U/S, labs)? Why? @ -[None] What meds were considered but not given or refused? Why? @ -[None] Did you discuss the management of the patient with other professionals (professionals i.e. , PA, [employer], lab, RT, psych nurse, child welfare social worker, buckle inspector, teacher, correctional program officer, community case manager)? Give summary @ -[Case discussed with the admitting physician and also with the orthopedic surgeon security and privacy consultant and their treatment recommendations are incorporated Was smoking cessation discussed for >3mins.? @ -[No] Was critical care preformed (if so, how long)? @ -[No] Were there social determinants of health that impacted care today? How? (Homelessness, low income, unemployed, alcoholism, drug addiction, transportation, low edu. Level, literacy, decrease access to med. care, intermediate, rehab)? @ -[No] Was there de-escalation of care discussed even if they declined (Discuss DNR or withdrawal of care, Hospice)? DNR status @ -[No] What co-morbidities impacted this encounter? (DM, HTN, Smoking, COPD, CAD, Cancer, CVA, ARF, Chemo, Hep., AIDS, mental health diagnosis, sleep apnea, morbid obesity)? @ -[Ankylosing spondylitis Was patient admitted / discharged? Hospital course, mention meds given and route, prescriptions, significant lab abnormalities, going to OR and other pertinent info. @ -[h patient is an 84-year-old man who had a ground-level fall at home resulting in acute T5 vertebral body fracture. Patient will be admitted to have further orthopedic care Undiagnosed new problem with uncertain prognosis? @ -[No] Drug Therapy requiring intensive monitoring for toxicity (Heparin, Nitro, Insulin, Cardizem)? @ -[No] Were any procedures done? @ -[No] Diagnosis/symptom? @ -[Acute syncopal episode T5 vertebral body fracture Acute, or Chronic, or Acute on Chronic? @ -[Acute Uncomplicated (without systemic symptoms) or Complicated (systemic symptoms)? @ -Uncomplicated Side effects of treatment? @ -[No] Exacerbation, Progression, or Severe Exacerbation? @ -[No] Poses a threat to life or bodily function? How? (Chest pain, [place], MD, pneumonia, PE, COPD, DKA, ARF, appy, cholecystitis, CVA, Diverticulitis, Homicidal, Suicidal, threat to staff... and all critical care pts) @ -[Requires orthopedic surgery consultation, patient admitted All treatments are based on ideal body weight as in ED triage - Lab Data Result diagrams: 12/16/24 07:11 12/18/24 11:24 Disposition Clinical Impression: Fall, Closed T5 fracture Disposition: ADMITTED IP TO THIS [facility] Condition: Fair Is patient prescribed a controlled substance at d/c from ED?: No
[2024-12-14] MEDS ORDERED: NALOXONE 0.4 MG/ML 1 ML VIAL IV PRN (08:23)
[2024-12-14] MEDS ORDERED: ACETAMINOPHEN TAB 325 MG TAB PO PRN (08:23)
[2024-12-14] MEDS: SODIUM CHLORIDE 0.9% 1,000 ML IV SCH (08:33)
[2024-12-14] MEDS: FAMOTIDINE 20 MG TAB PO SCH (08:33)
[2024-12-14] MEDS: HYDROcodone/APAP 5-325MG 1 EACH TAB PO PRN (08:34)
--- NOTE | 2024-12-14 09:40 | P.CNOR ---
History of Present Illness - [facility] Consult date: 12/14/24 Requesting physician: Jose Landa Consult reason: fracture (T5 fracture status post fall) History of present illness: Patient is a very pleasant 84-year-old male who is seen and examined in the emergency department room #17 for further evaluation of his thoracic spine. Patient states he follows with Dr. Colin in primary care. He states he got up to ambulate and fell due to hypoglycemia. He fell hitting his thoracic spine and has had increased upper thoracic pain since that time. He denies any changes in his lower extremities. He did injure his right great toe with a wound which was being treated in the emergency department. Patient states he does have chronic swelling of his bilateral lower extremities greater on the left than the right. He has a past medical history of lung cancer with right partial lobectomy. He is admitted to medicine. His other medical diagnoses include atrial fibrillation, coronary artery disease, hyperlipidemia, hypertension, and vasc ular disorder. Past Medical History Past Medical History: Atrial Fibrillation, Coronary Artery Disease (CAD), Cancer, Eye Disorder, GI Bleed, Hyperlipidemia, Hypertension, Pneumonia, Skin Disorder, Sleep Apnea/CPAP/BIPAP, Vascular Disorder Additional Past Medical History / Comment(s): dx of lung CA Aug 2023, pneumonia Sep 2023, recent dx hemoptysis-post bronchoscopy- Sep 2023, pt states he is still coughing up blood but "It's a lot less.", back pain-increased pain with walking,Vertigo, hiatal hernia, gout, eczema, bleeds easily, uses cpap, history of prostate cancer, cataract lt eye, "I have circulation issues with my legs." "My manager business information said we were going to deal with my lungs first before worrying about my legs.", pt reports swelling to bilat legs due to "I injured them falling off a ladder and my legs got stuck in ladder." cancer recent radiation treatment active chemo pills. History of Any Multi-Drug Resistant Organisms: None Reported Past Surgical History: Cholecystectomy, Heart Catheterization With Stent, Orthopedic Surgery, Prostate Surgery Additional Past Surgical History / Comment(s): Recent Bronchoscopy Aug 2023, Exploratory Abdominal Surgery; ORIF titanium/screws in LT Ankle. REPAIR BICEP TENDON LT ARM. RT CATARACT. STENTS X2. cyst removed from under chin, prostate surgery with 44 radiation txs, Watchman procedure, R lung lower lobectomy 09/28 Past Anesthesia/Blood Transfusion Reactions: Previous Problems w/ Anesthesia Additional Past Anesthesia/Blood Transfusion Reaction / Comm: DEVELOPED AFIB AFTER CATARACT SURG 2013. No hx of blood transfusions. Date of Last Stent Placement:: 2013 Past Psychological History: No Psychological Hx Reported Smoking Status: Former smoker Past Alcohol Use History: None Reported Past Drug Use History: None Reported - Past Family History Mother Family Medical History: Coronary Artery Disease (CAD), Myocardial Infarction ([place]) Additional Family Medical History / Comment(s): from myocardial infarction at 69 years old Father Family Medical History: Coronary Artery Disease (CAD), Myocardial Infarction ([place]) Additional Family Medical History / Comment(s): from myocardial infarction at 69 years old Medications and Allergies Home Medications Medication Instructions Recorded Confirmed Type Ranolazine [Ranexa] 500 mg PO BID 09/03/17 12/14/24 History Montelukast [Singulair] 10 mg PO HS 90 Days #90 tab 02/18/24 12/14/24 Rx Apixaban [Eliquis] 5 mg PO BID 03/03/24 12/14/24 History Capmatinib Hydrochloride [Tabrecta] 200 mg PO BID 08/23/24 12/14/24 History Clopidogrel [Plavix] 75 mg PO DAILY 08/23/24 12/14/24 History Colchicine 0.6 mg PO DAILY 08/23/24 12/14/24 History Furosemide [Lasix] 40 mg PO BID@0900,1400 08/23/24 12/14/24 History Midodrine [ProAmatine] 5 mg PO TID 08/23/24 12/14/24 History Potassium Chloride ER [K-Dur 10] 10 meq PO DAILY 08/23/24 12/14/24 History Sildenafil [Revatio] 20 mg PO DAILY 08/23/24 12/14/24 History allopurinoL [Zyloprim] 300 mg PO DAILY 08/23/24 12/14/24 History Budesonide [Pulmicort] 0.5 mg INHALATION RT-BID 12/14/24 12/14/24 History Cephalexin [Keflex] 500 mg PO BID 12/14/24 12/14/24 History Ipratropium-Albuterol Nebulize 3 ml INHALATION RT-TID 12/14/24 12/14/24 History [Duoneb 0.5 mg-3 mg/3 ml Soln] Metoprolol Tartrate [Lopressor] 50 mg PO BID 12/14/24 12/14/24 History Omeprazole 40 mg PO HS 12/14/24 12/14/24 History ondansetron HCL [Zofran] 8 mg PO Q6H PRN 12/14/24 12/14/24 History Allergies Allergy/AdvReac Type Severity Reaction Status Date / Time capecitabine Allergy Rash/Hives Verified 12/14/24 08:34 cortisone [Cortisone] Allergy Swelling Verified 12/14/24 08:34 and itching surgical tape Allergy "Broke Uncoded 12/14/24 08:34 out" "Got infection" Physical Examination Osteopathic Statement: *. No significant issues noted on an osteopathic structural exam other than those noted in the History and Physical/Consult. Physical exam: Patient is awake, alert, and oriented 3 Vital signs stable Good chest excursion with deep inspiration and expiration Examination of thoracic and lumbar spine reveals skin is intact with no abrasions, lacerations, or bruises; no erythema, purulence or signs of infection Significant pain with palpation at the midline of the upper thoracic spine Dorsiflexion and plantarflexion sustained bilaterally Lower extremity strength 5/5 bilaterally Wound to the right great toe Straight leg test negative bilateral lower extremities Negative Lasegue's test bilaterally No signs or symptoms of DVT; no calf pain No pain with internal and external rotation of the hips bilaterally Neurovascularly intact Swelling in his left lower extremity with pitting edema Results Pertinent studies: CT of the thoracic spine taken on 12/14/2024: Evidence of acute fracture at the anterior osteophyte at T4-5 extending into the T5 vertebral body; ankylosing spondylosis of the thoracic spine Assessment and Plan Assessment: Assessment: Acute traumatic T5 fracture within the vertebral body status post fall Acute thoracic back pain Thoracic ankylosing spondylosis Atrial fibrillation Coronary artery disease Hyperlipidemia Hypertension Vascular disorder (1) Closed T5 fracture Current Visit: Yes Status: Acute Code(s): S22.059A - UNSP FRACTURE OF T5-T6 VERTEBRA, INIT FOR CLOS FX SNOMED Code(s): 026168807 (2) Status post fall Current Visit: Yes Status: Acute Code(s): Z91.81 - HISTORY OF FALLING SNOMED Code(s): 002879158 (3) Thoracic back pain Current Visit: Yes Status: Acute Code(s): M54.6 - PAIN IN THORACIC SPINE SNOMED Code(s): 133326555 (4) Atrial fibrillation Current Visit: Yes Status: Acute Code(s): I48.91 - UNSPECIFIED ATRIAL FIBRILLATION SNOMED Code(s): 09695596 (5) Coronary artery disease Current Visit: Yes Status: Acute Code(s): I25.10 - ATHSCL HEART DISEASE OF [place] CORONARY ARTERY W/O ANG PCTRS SNOMED Code(s): 50260546 (6) Vascular disorder Current Visit: Yes Status: Acute Code(s): I99.9 - UNSPECIFIED DISORDER OF CIRCULATORY SYSTEM SNOMED Code(s): 65212395 (7) Hyperlipidemia Current Visit: Yes Status: Acute Code(s): E78.5 - HYPERLIPIDEMIA, UNSPECIFIED SNOMED Code(s): 55701306 (8) Hypertension Current Visit: Yes Status: Acute Code(s): I10 - ESSENTIAL (PRIMARY) HYPERTENSION SNOMED Code(s): 63310087 Plan: Plan: 1. Patient has been discussed in detail with Dr. Rene Buitrago. His thoracic CT imaging has been reviewed. After reviewing of imaging, physical examination the patient, and further discussion with the patient, will currently planned to continue with conservative treatment at this time. He does have evidence of T5 fracture extending through the vertebral body with ankylosing spondylosis of his thoracic spine. This fracture appears stable. Currently, we will plan for conservative treatment. We'll plan for bracing. A prescription has been written and provided to case management for a cervicothoracic orthosis brace. Once this brace is delivered and fitted appropriately, patient should wear this brace while sitting upright at greater than 45, during increase activities, during ambulation. Brace does not have to or while lying in bed or while bathing. Following fitting of this brace, patient is clear for discharge from an orthopedic spine standpoint. Following discharge, patient may follow-up with Stef Avery PA-C or Dr. Rene Buitrago at [facility] in 2 weeks for further evaluation. We did discuss patient should refrain from ambulating independently and should only ambulate to the restroom until his brace is delivered and fitted appropriately. He may work with physical therapy once his brace is delivered and fitted appropriately. 2. Patient will continue be seen and examined by medicine for his other medical diagnoses I was able to see the patient at bedside and do an exam. I agree with the above however on my exam it seems that the patient has significant tenderness to palpation at the upper thoracic area correlating with his injury. He has difficulty with his mobilization. He is neurologically intact in his upper extremities and lower extremities. His imaging is reviewed which shows a very small fracture anteriorly at the T5 level and into the T5 vertebral body. I do not see any evidence of involvement of the posterior elements on CT scan. The patient had a couple of falls at home due to hypoglycemia. He has a new acute fracture at T5 and evidence of ankylosing spondylitis. With his tenderness at his thoracic spine it is difficult to determine the amount of involvement posteriorly. There is minimal significant bony involvement at the posterior elements that I can see on the CT scan but with his tenderness I think that further imaging is necessary to evaluate for instability given the ankylosing spondylitis and the fracture with his fall. I think that an MRI is necessary of his thoracic spine to determine soft tissue status posteriorly. The patient should use a cervical thoracic orthosis whenever he is elevated or out of bed. That has been ordered. It would also be worthwhile to obtain further upright x-rays of his thoracic spine once he has his brace intact. If his structural stability looks okay with the brace and his pain is controlled we can continue to observe him with conservative treatment. However if the MRI shows significant posterior involvement or soft tissue disruption and he shows any evidence of instability even with the brace on then we would have to consider surgical intervention for fusion stabilization. I discussed this with him and he seemed to understand. He is on chronic oxygen given his history of prior pulmonary carcinoma. He is hoping to avoid any surgery but we need further imaging and workup to determine his structural stability at his thoracic spine. I will order the MRI and have further recommendations to follow He should obtain his cervical thoracic orthosis to be worn whenever out of bed Time with Patient: Greater than 30 (Including obtaining history, physical examination, reviewing of imaging, and dictation.)
[2024-12-14] MEDS: MIDODRINE 5 MG TAB PO SCH (17:18)
[2024-12-14] MEDS: MORPHINE SULFATE 4 MG/ML SYRINGE IV PRN (17:26)
[2024-12-14] MEDS: BUDESONIDE 0.5 MG/2 ML NEBU INHALATION SCH (18:41)
[2024-12-14] MEDS: IPRATROPIUM-ALBUTEROL 3 ML NEB INHALATION SCH (18:41)
[2024-12-14] MEDS ORDERED: CAPMATINIB HYDROCHLORIDE 200 MG PO SCH (21:00)
[2024-12-14] MEDS: APIXABAN 5 MG TAB PO SCH (21:17)
[2024-12-14] MEDS: METOPROLOL TARTRATE 50 MG TAB PO SCH (21:17)
[2024-12-14] MEDS: PANTOPRAZOLE 40 MG TABLET PO SCH (21:17)
[2024-12-14] MEDS: RANOLAZINE 500 MG TAB.ER.12H PO SCH (21:17)
[2024-12-14] MEDS: MONTELUKAST 10 MG TAB PO SCH (21:17)
[2024-12-14] MEDS: CAPMATINIB HYDROCHLORIDE 200 MG PO SCH (21:19)
--- NOTE | 2024-12-15 03:41 | PN ---
PROGRESS NOTE SUBJECTIVE: An 84-year-old white male. He had a fall at home, came in with T5-T6 fracture and anterior osteophyte fracture. He is supposed to get a thoracic brace prior to going home. No surgery will be needed per Orthopedics. He has a history of coronary artery disease; lung cancer; CHF; COPD, oxygen dependent; adenocarcinoma of the lung. OBJECTIVE: CARDIOVASCULAR: S1-S2. LUNGS: Transmitted upper airway sounds. GI: Soft. EXTREMITIES: 2+ edema. ASSESSMENT: 1. He has coronary artery disease. 2. Atrial fibrillation. 3. Acute thoracic back pain. 4. Thoracic ankylosing spondylitis. 5. Acute fracture, T5 fracture. 6. Hypertension. 7. Dyslipidemia. 8. Heart failure. PLAN: Thoracic brace is ordered. Pain control. We will check PT/OT on him. Please see further orders. MMODL / IJN: [id number] /
[2024-12-15] MEDS: COLCHICINE 0.6 MG EACH PO SCH (09:14)
[2024-12-15] MEDS: POTASSIUM CHLORIDE ER 10 MEQ TAB.ER.PRT PO SCH (09:14)
[2024-12-15] MEDS: SILDENAFIL 20 MG TAB PO SCH (09:14)
[2024-12-15] MEDS: FUROSEMIDE 40 MG TAB PO SCH (09:15)
[2024-12-15] MEDS: allopurinoL 300 MG TAB PO SCH (09:15)
[2024-12-15] MEDS: CLOPIDOGREL 75 MG TAB PO SCH (09:15)
--- NOTE | 2024-12-15 10:19 | P.PN ---
Subjective Progress Note Date: 12/15/24 Patient is a very pleasant 84-year-old male who is seen and examined in the emergency department room #17 for further evaluation of his thoracic spine. Patient states he follows with Dr. Colin in primary care. He states he got up to ambulate and fell due to hypoglycemia. He fell hitting his thoracic spine and has had increased upper thoracic pain since that time. He denies any changes in his lower extremities. He did injure his right great toe with a wound which was being treated in the emergency department. Patient states he does have chronic swelling of his bilateral lower extremities greater on the left than the right. He has a past medical history of lung cancer with right partial lobectomy. He is admitted to medicine. His other medical diagnoses include atrial fibrillation, coronary artery disease, hyperlipidemia, hypertension, and vascular disorder. 12/15/2024: Patient states he just completed his MRI. Patient states his pain level is about the same as yesterday. He continues to state his primary source of pain is over his right side of his thoracic spine. Objective - Vital Signs Vital signs: Vital Signs Temp 97.7 F 12/15/24 07:26 Pulse 60 12/15/24 07:26 Resp 16 12/15/24 07:26 BP 124/76 12/15/24 07:26 Pulse Ox 100 12/15/24 07:26 FiO2 Intake & Output 12/14/24 12/15/24 12/15/24 18:59 06:59 18:59 Intake Total 960 Output Total 550 200 Balance 410 -200 Weight 97.976 kg Intake: Oral 960 Output: Urine 550 200 Other: Voiding Method Urinal Urinal - Exam Patient is awake, alert, and oriented 3 Cervical thoracic orthosis in place. Good chest excursion with deep inspiration and expiration Significant pain with palpation at the midline of the upper thoracic spine Bilateral upper extremities with motor function grossly intact of the axillary, radial, median, ulnar, and anterior interosseous nerve. Bilateral upper extremities with intact sensation to light touch. Dorsiflexion and plantarflexion sustained bilaterally Lower extremity strength 5/5 bilaterally Wound to the right great toe, dressed. Straight leg test negative bilateral lower extremities Bilateral calves are soft to palpation, patient is able to plantarflex and dorsiflex without Pain, negative Homans' sign. No pain with internal and external rotation of the hips bilaterally Patient states sensation to light touch of bilateral upper and lower extremities. Swelling in his left lower extremity with pitting edema Assessment and Plan Assessment: Acute traumatic T5 fracture within the vertebral body status post fall Acute thoracic back pain Thoracic ankylosing spondylosis Atrial fibrillation Coronary artery disease Hyperlipidemia Hypertension Vascular disorder Plan: Cervical thoracic orthosis in place. Use whenever he is elevated or out of bed. MRI pending. Will obtain upright x-rays of his thoracic spine with cervical thoracic or thesis in place. Further plan pending results.
--- NOTE | 2024-12-15 10:26 | MR ---
EXAMINATION TYPE: MR thoracic spine wo con DATE OF EXAM: 12/15/2024 9:09 AM COMPARISON: CT 12/14/2024 CLINICAL INDICATION: Male, 84 years old with history of T5 fracture, ankylosing spondylitis, Fall, T5 vertebral osteophyte fx, ankylosing spondylitis. TECHNIQUE: Multiplanar, multiecho imaging on a 3.0 Leta magnet is performed through the thoracic spi ne. IV Contrast: mL (None, if empty) FINDINGS: Spinal cord maintains normal signal through its visualized course. There is mild increased kyphosis. Mild rotoscoliosis is present Vertebral body heights are preserved. Anterior vertebral body fusion is evident T3-T8. Findings can b e compatible with ankylosing spondylitis. Disc heights are preserved. Disc hydration levels are preserved. No suspicious disc herniation evide nt. Attention is paid to the T5 level. The suspected fracture of the osteophyte is less well-visualized o n this exam. The lucency from the CT however is identified on the MRI, nondisplaced fracture could be considered. Significant edema however is not evident. No spinal canal stenosis is evident. IMPRESSION: 1. Nondisplaced fracture at the T5 osteophyte not excluded. This appears better visualized on the CT exam but persistent on MRI [facility], , 12/15/2024 10:24 AM
--- NOTE | 2024-12-15 11:08 | XR ---
EXAMINATION TYPE: XR thoracic spine complete DATE OF EXAM: 12/15/2024 10:59 AM COMPARISON: None. CLINICAL INDICATION: Male, 84 years old with history of Thoracic pain, pain TECHNIQUE: 3 view(s) obtained. FINDINGS: Anterior calcifications extend throughout the [id number]. The patient's T4-5 osseous spur fracture not identified on the plain films. Vertebral body heights are preserved. Mild diffuse disc space narrowing is present. IMPRESSION: 1. Anterior vertebral body calcification compatible with ankylosing spondylitis. 2. Patient's suspected T4-5 osseous spur fracture not identified on these images. [facility], , 12/15/2024 11:05 AM
[2024-12-15 15:24] LABS: Basophils # (A) 0.05 10*3/uL (0.00-0.10); Basophils % (A) 0.4 %; Eosinophils # (A) 0.05 10*3/uL (0.04-0.35); Eosinophils % (A) 0.4 %; HCT 42.9 % (39.6-50.0); Lymphocytes # (A) 0.32 10*3/uL (0.90-5.00); Lymphocytes % (A) 2.7 %; MCH 32.9 pg (27.0-32.0); MCV 94.1 fL (80.0-97.0); Mean Platelet Volume 10.8 fL (9.5-12.2); Monocytes # (A) 0.71 10*3/uL (0.20-1.00); Neutrophils # (A) 10.53 10*3/uL (1.80-7.70); Neutrophils % (A) 89.8 %; Platelet Count 188 10*3/uL (140-440); RBC 4.56 10*6/uL (4.40-5.60); RDW 15.9 % (11.5-14.5); WBC 11.74 10*3/uL (4.50-10.00)
[2024-12-15 15:43] LABS: ALT 15 U/L (4-49); African American GFR (CKD) 54 (>60 ml/min/1.73 sqM); Anion Gap 7 mmol/L; Blood Urea Nitrogen 28 mg/dL (9-20); Calcium 8.3 mg/dL (8.4-10.2); Carbon Dioxide 34 mmol/L (22-30); Chloride 84 mmol/L (98-107); Globulin 2.6 g/dL; Glucose 150 mg/dL (74-99); Non-African American GFR(CKD) 47 (>60 ml/min/1.73 sqM); Sodium 125 mmol/L (137-145); Total Bilirubin 1.8 mg/dL (0.2-1.3)
[2024-12-15 15:44] LABS: AST 41 U/L (17-59); Albumin 2.7 g/dL (3.5-5.0); Alkaline Phosphatase 70 U/L (38-126); Potassium 3.5 mmol/L (3.5-5.1); Total Protein 5.3 g/dL (6.3-8.2)
--- NOTE | 2024-12-15 16:56 | CT ---
EXAMINATION TYPE: CT chest wo con DATE OF EXAM: 12/15/2024 4:35 PM COMPARISON: Previous CT chest studies, most recently dated 02/14/2024. CLINICAL INDICATION: Male, 84 years old with history of hypoxia,hx cancdr; PHH, Hypoxia Hx of CA. TECHNIQUE: Multiple axial images were obtained through the chest. Sagittal and coronal reformats were created for review. MIP was performed on a separate workstation. CT DLP: 557.6 mGycm, Automated exposure control for dose reduction was used. FINDINGS: LUNGS/ PLEURA: Small left pleural effusion and adjacent left lower lobe consolidative changes. AIRWAY: Patent and unremarkable. HEART: Cardiomegaly.Coronary artery calcifications. Atrial appendage occlusion device. MEDIASTINUM: No gross evidence of adenopathy. Bilateral gynecomastia changes. VASCULATURE: No aortic aneurysm. MUSCULOSKELETAL: No acute osseous abnormalities. Multilevel thoracic spine degenerative changes. SOFT TISSUES/LYMPH NODES: Unremarkable. LOWER NECK: No significant findings. UPPER ABDOMEN: No significant acute findings. . Cholecystectomy. IMPRESSION: Cardiomegaly with small left pleural effusion and adjacent left lower lobe mild consolidative changes suggesting atelectasis and/or pneumonia. [facility], , 12/15/2024 4:53 PM
[2024-12-15 18:59] LABS: Appearance,Urine Clear (Clear); Bilirubin,Urine Negative (Negative); Blood,Urine Negative (Negative); Color,Urine Light Yellow; Glucose,Urine (UA) Negative (Negative); Ketones,Urine Negative (Negative); Leukocyte Esterase,Urine Negative (Negative); Nitrite,Urine Negative (Negative); Protein,Urine Negative (Negative); Specific Gravity,Urine 1.009 (1.001-1.035); Urobilinogen,Urine <2.0 mg/dL (<2.0)
--- NOTE | 2024-12-15 20:24 | PN ---
PROGRESS NOTE SUBJECTIVE: An 84-year-old white male who had thoracic fracture with a fall. OBJECTIVE: VITAL SIGNS: Blood pressure O2 is 90% to 95% on 5 L, temperature 97.7, pulse 60 to 72. HEMATOLOGY: Negative Homans. GI: Soft . CAT scan of his abdomen is more hypoxemic. Waiting for thoracic brace for his back. Check orthostatic hypotension came in and a urine culture. Continue to check for orthostasis and possible infection and once a thoracic brace can possibly send him home. MMODL / IJN: [id number] /
[2024-12-15] MEDS: MAG HYDROX/AL HYDROX/SIMETH 30 ML CUP PO PRN (20:39)
[2024-12-16] MEDS: ONDANSETRON ODT 4 MG TAB PO PRN (02:16)
[2024-12-16 08:19] LABS: ALT 13 U/L (4-49); AST 24 U/L (17-59); African American GFR (CKD) 54 (>60 ml/min/1.73 sqM); Albumin 2.5 g/dL (3.5-5.0); Albumin/Globulin Ratio 1.1; Alkaline Phosphatase 77 U/L (38-126); Anion Gap 3 mmol/L; Blood Urea Nitrogen 30 mg/dL (9-20); Calcium 8.3 mg/dL (8.4-10.2); Carbon Dioxide 39 mmol/L (22-30); Chloride 83 mmol/L (98-107); Globulin 2.2 g/dL; Glucose 141 mg/dL (74-99); Non-African American GFR(CKD) 47 (>60 ml/min/1.73 sqM); Sodium 125 mmol/L (137-145); Total Bilirubin 1.4 mg/dL (0.2-1.3); Total Protein 4.7 g/dL (6.3-8.2)
[2024-12-16 08:41] LABS: Basophils # (A) 0.03 10*3/uL (0.00-0.10); Basophils % (A) 0.3 %; Eosinophils % (A) 1.2 %; HCT 37.9 % (39.6-50.0); HGB 13.2 g/dL (13.0-17.0); Lymphocytes % (A) 4.7 %; MCHC 34.8 g/dL (32.0-37.0); Mean Platelet Volume 10.9 fL (9.5-12.2); Monocytes # (A) 0.76 10*3/uL (0.20-1.00); Monocytes % (A) 8.8 %; Neutrophils # (A) 7.23 10*3/uL (1.80-7.70); Neutrophils % (A) 84.2 %; Platelet Count 179 10*3/uL (140-440); RBC 4.12 10*6/uL (4.40-5.60); RDW 15.9 % (11.5-14.5); WBC 8.59 10*3/uL (4.50-10.00)
[2024-12-16] MEDS: ONDANSETRON 4 MG/2 ML VIAL IVP PRN (08:52)
--- NOTE | 2024-12-16 10:56 | P.PN ---
Subjective Progress Note Date: 12/16/24 Patient is a very pleasant 84-year-old male who is seen and examined in the emergency department room #17 for further evaluation of his thoracic spine. Patient states he follows with Dr. Colin in primary care. He states he got up to ambulate and fell due to hypoglycemia. He fell hitting his thoracic spine and has had increased upper thoracic pain since that time. He denies any changes in his lower extremities. He did injure his right great toe with a wound which was being treated in the emergency department. Patient states he does have chronic swelling of his bilateral lower extremities greater on the left than the right. He has a past medical history of lung cancer with right partial lobectomy. He is admitted to medicine. His other medical diagnoses include atrial fibrillation, coronary artery disease, hyperlipidemia, hypertension, and vascular disorder. 12/15/2024: Patient states he just completed his MRI. Patient states his pain level is about the same as yesterday. He continues to state his primary source of pain is over his right side of his thoracic spine. 12/16/2024: Patient states this pain continues to be at the same level. He continues to state his primary source of pain is over the right side of his thoracic spine. He denies numbness or weakness to the upper or lower extremities. Objective - Vital Signs Vital signs: Vital Signs Temp 97.8 F 12/16/24 07:24 Pulse 80 12/16/24 09:18 Resp 16 12/16/24 07:24 BP 92/50 12/16/24 07:24 Pulse Ox 95 12/16/24 09:02 FiO2 Intake & Output 12/15/24 12/16/24 12/16/24 18:59 06:59 18:59 Other: Voiding Method Urinal # Voids 3 3 - Exam Patient is awake, alert, and oriented 3 Patient is lying flat in bed without cervical thoracic orthosis. Good chest excursion with deep inspiration and expiration Significant pain with palpation at the midline of the upper thoracic spine Bilateral upper extremities with motor function grossly intact of the axillary, radial, median, ulnar, and anterior interosseous nerve. Patient states sensation to light touch intact of bilateral upper extremities Hip flexion 5/5 bilaterally Femoral nerve function is grossly intact bilaterally Dorsiflexion and plantarflexion 5/5 bilaterally Wound to the right great toe, dressed. Bilateral calves are soft to palpation, patient is able to plantarflex and dorsiflex without Pain, negative Homans' sign. No pain with internal and external rotation of the hips bilaterally Patient states sensation to light touch intact of bilateral lower extremities. Swelling in his left lower extremity with pitting edema - Labs CBC & Chem 7: 12/16/24 07:11 12/16/24 07:11 Labs: Abnormal Lab Results - Last 24 Hours (Table) 12/15/24 12/15/24 12/16/24 Range/Units 14:55 14:55 07:11 WBC 11.74 H (4.50-10.00) 10*3/uL RBC 4.12 L (4.40-5.60) 10*6/uL Hct 37.9 L (39.6-50.0) % MCH 32.9 H (27.0-32.0) pg RDW 15.9 H 15.9 H (11.5-14.5) % Immature Gran # 0.08 H 0.07 H (0.00-0.04) 10*3/uL Neutrophils # 10.53 H (1.80-7.70) 10*3/uL Lymphocytes # 0.32 L 0.40 L (0.90-5.00) 10*3/uL Sodium 125 L (137-145) mmol/L Potassium (3.5-5.1) mmol/L Chloride 84 L (98-107) mmol/L Carbon Dioxide 34 H (22-30) mmol/L BUN 28 H (9-20) mg/dL Creatinine 1.37 H (0.66-1.25) mg/dL Glucose 150 H (74-99) mg/dL Calcium 8.3 L (8.4-10.2) mg/dL Total Bilirubin 1.8 H (0.2-1.3) mg/dL Total Protein 5.3 L (6.3-8.2) g/dL Albumin 2.7 L (3.5-5.0) g/dL 12/16/24 Range/Units 07:11 WBC (4.50-10.00) 10*3/uL RBC (4.40-5.60) 10*6/uL Hct (39.6-50.0) % MCH (27.0-32.0) pg RDW (11.5-14.5) % Immature Gran # (0.00-0.04) 10*3/uL Neutrophils # (1.80-7.70) 10*3/uL Lymphocytes # (0.90-5.00) 10*3/uL Sodium 125 L (137-145) mmol/L Potassium 3.0 L (3.5-5.1) mmol/L Chloride 83 L (98-107) mmol/L Carbon Dioxide 39 H (22-30) mmol/L BUN 30 H (9-20) mg/dL Creatinine 1.38 H (0.66-1.25) mg/dL Glucose 141 H (74-99) mg/dL Calcium 8.3 L (8.4-10.2) mg/dL Total Bilirubin 1.4 H (0.2-1.3) mg/dL Total Protein 4.7 L (6.3-8.2) g/dL Albumin 2.5 L (3.5-5.0) g/dL Assessment and Plan Assessment: Acute traumatic T5 fracture within the vertebral body status post fall Acute thoracic back pain Thoracic ankylosing spondylosis Atrial fibrillation Coronary artery disease Hyperlipidemia Hypertension Vascular disorder Plan: The patient should use a cervical thoracic orthosis whenever he is elevated or out of bed. Bilateral upper and lower extremities motor function grossly intact, and sensation grossly intact Continue conservative management for now. Pain control.
[2024-12-16] MEDS: LACTULOSE 20 GM/30 ML CUP PO PRN (12:46)
[2024-12-16] MEDS: methylPREDNISolone SOD SUCCI 40 MG/ML 1 ML VIAL IV SCH (15:05)
[2024-12-16] MEDS: POTASSIUM CHLORIDE ER 20 MEQ TAB.ER PO SCH (17:38)
--- NOTE | 2024-12-16 23:38 | PN ---
PROGRESS NOTE SUBJECTIVE: An -umxg-lif white male with pneumonia. Remains on antibiotics until discharge. Checking for orthostatic hypotension. His pain in his back is better. He has been constipated. Difficulty ambulating today. OBJECTIVE: VITAL SIGNS: Temp 98.2, pulse 60s, respiratory rate 16 to 18, blood pressure 125/75, O2 is 94% on room air. LABORATORY DATA: White count 8.59, potassium is low at 3.0. Sodium 125. Total bilirubin is 1.4. Albumin is low at 2.5. PLAN: Continue current treatment. PT, OT. Check for orthostatic hypotension. Hyponatremia. Give normal saline. Prognosis guarded. Please see further orders. MMODL / IJN: [id number] /
--- NOTE | 2024-12-17 12:27 | P.PN ---
Progress Note - Text Progress Note Date: 12/17/24 Orthopedic spine: History of present illness: Patient is a very pleasant 84-year-old male who is seen and examined at the bedside for follow-up evaluation of his thoracic spine. Patient states he follows with Dr. Viveros in primary care. He states he got up to ambulate and fell due to hypoglycemia. He fell hitting his thoracic spine and has had increased upper thoracic pain since that time. He denies any changes in his lower extremities. He did injure his right great toe with a wound which was being treated in the emergency department. Patient states he does have chronic swelling of his bilateral lower extremities greater on the left than the right. He has a past medical history of lung cancer with right partial lobectomy. He is admitted to medicine. His other medical diagnoses include atrial fibrillation, coronary artery disease, hyperlipidemia, hypertension, and vascular disorder. Multiple imaging modalities have been performed. He was diagnosed with a T5 fracture. He has been fitted with a [employer] brace. He has been wearing this brace with increased activities. He has difficulty getting this brace applied but states it is comfortable except for part of it around his cervical spine. He continues deny any any changes in his lower extremities bilaterally. He is neurologically intact. Some he would be willing to discharge to a rehabilitation facility. He would only be discharged to [facility] as his is currently residing there following a fracture. He does feel stable to where he would be ready for discharge today. He is currently undergoing a breathing treatment. Physical exam: Patient is awake, alert, and oriented 3 Vital signs stable Good chest excursion with deep inspiration and expiration Examination of thoracic and lumbar spine reveals skin is intact with no abrasions, lacerations, or bruises; no erythema, purulence or signs of infection Some pain with palpation over the right paraspinal muscles of the upper thoracic spine No midline thoracic pain Dorsiflexion and plantarflexion sustained bilaterally Lower extremity strength 5/5 bilaterally Straight leg test negative bilateral lower extremities No signs or symptoms of DVT; no calf pain No pain with internal and external rotation of the hips bilaterally Neurovascularly intact Swelling in his left lower extremity with pitting edema Pertinent studies: MRI thoracic spine taken on 12/15/2024: Nondisplaced fracture of T5 osteophyte not excluded which is better visualized on the CT exam but is also persistent on MRI; evidence of ankylosing spondylosis with anterior vertebral body fusion T3- 8; disc heights appear to be adequate maintained X-rays of the thoracic spine taken with [employer] brace intact on 12/15/2024: T5 fracture seen on other imaging including CT and MRI is difficult to visualize CT of the thoracic spine taken on 12/14/2024: Evidence of acute fracture at the anterior osteophyte at T4-5 extending into the T5 vertebral body; ankylosing spondylosis of the thoracic spine Assessment: Acute traumatic T5 fracture within the vertebral body status post fall Acute thoracic back pain Thoracic ankylosing spondylosis Atrial fibrillation Coronary artery disease Hyperlipidemia Hypertension Vascular disorder Plan: 1. Patient has been discussed in detail with Dr. Rene Buitrago. His thoracic CT, MRI, and x-ray imaging has been reviewed. After reviewing of imaging, physical examination the patient, and further discussion with the patient, will currently planned to continue with conservative treatment at this time. He does have evidence of T5 fracture extending through the vertebral body with ankylosing spondylosis of his thoracic spine. This fracture appears stable. His pain has been adequately controlled. He does not have any midline thoracic pain. He does have some pain over his right paraspinal muscles at the upper thoracic spine. Currently, we will plan for conservative treatment. We'll plan for bracing. A prescription has been written and provided to case management for a cervicothoracic orthosis brace. This brace has been delivered and fitted appropriately. Patient should wear this brace while sitting upright at greater than 45, during increase activities, during ambulation. Brace does not have to or while lying in bed or while bathing. Patient is clear for discharge from an orthopedic spine standpoint. Following discharge, patient may follow-up with Stef Avery PA-C or Dr. Rene Buitrago at [facility] in 2 weeks for further evaluation. Patient may be planning for discharge to rehabilitation facility where his is currently residing if approved. This would be [facility]. 2. Patient will continue be seen and examined by medicine for his other medical diagnoses
--- NOTE | 2024-12-17 16:48 | P.CONS ---
History of Present Illness - Reason for Consult Consult date: 12/17/24 Rehab recommendations - Chief Complaint T5 fracture s/p fall - History of Present Illness Patient is a 84-year-old male, , who lives with his son and DIL in a home with 3 LUIGI with HR. Prior to admission, patient was using a rollator for mobility and assisted with ADLs as need. Had home care 1 day per week and son/DIL helped as needed. is currently a resident at [facility]. Den presented to [facility] on 12/14/24 for further evaluation of his thoracic spine after a fall due to hypoglycemia. He fell hitting his thoracic spine and has had increased upper thoracic pain since that time. He also reported a right great toe injury with a wound, which was treated in the emergency department per records. Patient has history of chronic swelling of his bilateral lower extremities (greater on the left than the right), lung cancer with right partial lobectomy, oxygen dependent at 5L NC, atrial fibrillation, coronary artery disease, hyperlipidemia, hypertension and a vascular disorder. Imaging revealed evidence of acute fracture at the anterior osteophyte at T4-5 extending into the T5 vertebral body; ankylosing spondylosis of the thoracic spine. He was evaluated by othopedics who recommended conservative treatment at this time. A cervicothoracic orthosis brace was recommended while sitting upright at greater than 45, during increase activities, during ambulation. Brace does not have to or while lying in bed or while bathing. F/U recommended in 2 weeks. Therapy evaluations reviewed: OT - evaluation pending, PT - 40 feet Mila 2WW, BM Mila. 12/17: Patient seen and examined resting in bed. Reports he chronically wears 5L NC at home. Reports pain with movement, relieved with rest and use of pain medications. LBM prior to arrival, +flatus, denies abdominal pain N/V. Denies CP and SOB. Reports he only wants to go to [facility] for therapy to be closer to his , and if he cannot go there, would like to go home with [facility]. Review of Systems As above in subjective. Past Medical History Past Medical History: Atrial Fibrillation, Coronary Artery Disease (CAD), Cancer, Eye Disorder, GI Bleed, Hyperlipidemia, Hypertension, Pneumonia, Skin Disorder, Sleep Apnea/CPAP/BIPAP, Vascular Disorder Additional Past Medical History / Comment(s): dx of lung CA Aug 2023, pneumonia Sep 2023, recent dx hemoptysis-post bronchoscopy- Sep 2023, pt states he is still coughing up blood but "It's a lot less.", back pain-increased pain with walking,Vertigo, hiatal hernia, gout, eczema, bleeds easily, uses cpap, history of prostate cancer, cataract lt eye, "I have circulation issues with my legs." "My turret lathe machinist said we were going to deal with my lungs first before worrying about my legs.", pt reports swelling to bilat legs due to "I injured them falling off a ladder and my legs got stuck in ladder." cancer recent radiation treatment active chemo pills. History of Any Multi-Drug Resistant Organisms: None Reported Past Surgical History: Cholecystectomy, Heart Catheterization With Stent, Orthopedic Surgery, Prostate Surgery Additional Past Surgical History / Comment(s): Recent Bronchoscopy Aug 2023, Exploratory Abdominal Surgery; ORIF titanium/screws in LT Ankle. REPAIR BICEP TENDON LT ARM. RT CATARACT. STENTS X2. cyst removed from under chin, prostate surgery with 44 radiation txs, Watchman procedure, R lung lower lobectomy 09/28 Past Anesthesia/Blood Transfusion Reactions: Previous Problems w/ Anesthesia Additional Past Anesthesia/Blood Transfusion Reaction / Comm: DEVELOPED AFIB AFTER CATARACT SURG 2013. No hx of blood transfusions. Date of Last Stent Placement:: 2013 Past Psychological History: No Psychological Hx Reported Smoking Status: Former smoker Past Alcohol Use History: None Reported Past Drug Use History: None Reported - Past Family History Mother Family Medical History: Coronary Artery Disease (CAD), Myocardial Infarction ([place]) Additional Family Medical History / Comment(s): from myocardial infarction at 69 years old Father Family Medical History: Coronary Artery Disease (CAD), Myocardial Infarction ([place]) Additional Family Medical History / Comment(s): from myocardial infarction at 69 years old Medications and Allergies Home Medications Medication Instructions Recorded Confirmed Type Ranolazine [Ranexa] 500 mg PO BID 09/03/17 12/14/24 History Montelukast [Singulair] 10 mg PO HS 90 Days #90 tab 02/18/24 12/14/24 Rx Apixaban [Eliquis] 5 mg PO BID 03/03/24 12/14/24 History Capmatinib Hydrochloride [Tabrecta] 200 mg PO BID 08/23/24 12/14/24 History Clopidogrel [Plavix] 75 mg PO DAILY 08/23/24 12/14/24 History Colchicine 0.6 mg PO DAILY 08/23/24 12/14/24 History Furosemide [Lasix] 40 mg PO BID@0900,1400 08/23/24 12/14/24 History Midodrine [ProAmatine] 5 mg PO TID 08/23/24 12/14/24 History Sildenafil [Revatio] 20 mg PO DAILY 08/23/24 12/14/24 History allopurinoL [Zyloprim] 300 mg PO DAILY 08/23/24 12/14/24 History Budesonide [Pulmicort] 0.5 mg INHALATION RT-BID 12/14/24 12/14/24 History Cephalexin [Keflex] 500 mg PO BID 12/14/24 12/14/24 History Ipratropium-Albuterol Nebulize 3 ml INHALATION RT-TID 12/14/24 12/14/24 History [Duoneb 0.5 mg-3 mg/3 ml Soln] Metoprolol Tartrate [Lopressor] 50 mg PO BID 12/14/24 12/14/24 History Omeprazole 40 mg PO HS 12/14/24 12/14/24 History ondansetron HCL [Zofran] 8 mg PO Q6H PRN 12/14/24 12/14/24 History Acetaminophen Tab [Tylenol] 650 mg PO Q6HR PRN tab 12/16/24 Rx HYDROcodone/APAP 5-325MG [[place] 1 each PO Q4HR PRN tab 12/16/24 Rx 5-325] Lactulose [Cephulac] 20 gm PO TID PRN 90 Days #90 ml 12/16/24 Rx Mag Hydrox/Al Hydrox/Simeth 15 ml PO Q6HR PRN ml 12/16/24 Rx [Maalox] Potassium Chloride ER [K-Dur 20] 40 meq PO DAILY 90 Days #90 tab 12/16/24 Rx Allergies Allergy/AdvReac Type Severity Reaction Status Date / Time capecitabine Allergy Rash/Hives Verified 12/14/24 08:34 cortisone [Cortisone] Allergy Swelling Verified 12/14/24 08:34 and itching surgical tape Allergy "Broke Uncoded 12/14/24 08:34 out" "Got infection" Physical Exam Vitals: Vital Signs Temp Pulse Pulse Resp BP BP Pulse Ox 12/17/24 12:12 60 12/17/24 12:05 98.2 F 57 L 16 107/60 97 12/17/24 12:03 58 L 12/17/24 08:29 64 12/17/24 08:15 67 12/17/24 06:52 98.1 F 66 16 125/70 12/17/24 02:00 98.3 F 68 16 126/74 99 12/16/24 20:26 64 12/16/24 20:08 63 12/16/24 19:47 98.2 F 61 16 125/75 94 L 12/16/24 16:04 68 12/16/24 15:54 64 Intake and Output 12/17/24 12/17/24 12/17/24 06:59 14:59 22:59 Output Total 400 Balance -400 Output: Urine 400 General: alert, NAD HEENT: head normocephalic, atraumatic; +NAKNEK, B/L hearing aids CV: no acute distress, +B/L LE edema Lungs: non-labored respirations, on 5L O2 (chronic) Abdomen: soft, NT, ND, + external urinary collection device Neuro: Alert and oriented x4. Follow 3 step commands. CN 2-12 grossly intact MMT: B/L UE 5/5; B/L LE ~4/5 - decreased 2' pain Sensation intact to light touch bilateral UE and LEs Psych: mood calm, affect appropriate Extremities: calves supple, non tender,+ LE edema Skin: intact where exposed Results CBC & Chem 7: 12/16/24 07:11 12/16/24 07:11 Assessment and Plan Assessment: #Impaired gait and ADLs 2' Acute traumatic T5 fracture within the vertebral body status post fall -cervical thoracic orthosis (CRUISE GUIDE) brace whenever he is elevated or out of bed recommended per orthopedics. -conservative management recommended with F/U with Stef Avery PA-C or Dr. Rene Buitrago at [facility] in 2 weeks per ortho note #Acute thoracic back pain 2' above #Thoracic ankylosing spondylosis #Hx Atrial fibrillation #Hyponatremia -12/17: sodium 125 yesterday - management per primary team #Hypokalemia -12/17: potasium 3.0 yesterday - management per primary team #Hx Pulmonary Carcinoma s/p right partial lobectomy -Chronic oxygen dependent 5L NC -Tabrecta per MAR - oral chemo/chemo precautions #DVT prophylaxis -defer to IM/surgical management #Bowel/bladder: nursing to monitor and reports any concerns. -12/17: reports LBM prior to arrival, +flatus, denies abdominal pain, N/V. #Skin/wound: nursing to monitor and reports any concerns/wound care to follow as needed. #Pain management #Comorbidities: Coronary artery disease, hyperlipidemia, Hypertension, Vascular disorder #Your medical diagnosis and management. Recommendations: OT evaluations are pending. Therapy options discussed with patient, patient reports he would only like to go to [facility] for therapy or return back home with [facility]. Can continue to follow and make recommendations as needed. Patient seen and examined in coordination with Dr. Canela. Thank you for consulting our services.
--- NOTE | 2024-12-17 22:42 | PN ---
PROGRESS NOTE SUBJECTIVE: An 84-year-old white male, who has an LSO brace delivered for his thoracic fracture. Waiting for his 2-person assist to get up out of bed and put his brace on. He will need to go to [facility] with Dr. Wellington If insurance approves for him to get physical therapy over there, so he can move around on his own. OBJECTIVE: VITAL SIGNS: Stable, afebrile. CARDIOVASCULAR: S1, S2. LUNGS: Decreased breath sounds x4. CAT scan of the chest shows partially-treated pneumonia. Start him on IV antibiotics. PT and OT. Possible transfer for thoracic fracture. LSO brace with physical therapy with Dr. Wellington at [facility] tomorrow. MMODL / IJN: [id number] /
[2024-12-18] MEDS: LIDOCAINE 2% URO-JET JELLY 5 ML KIT URETHRAL STA (09:31)
--- NOTE | 2024-12-18 12:05 | P.GSCN ---
History of Present Illness Consult date: 12/18/24 Reason for Consult: Urinary retention History of present illness: This is an 84-year-old male admitted to the hospital following a fall. Urology is consulted for urinary retention. He is a known patient of Dr. Gautam with history of prostate cancer treated with radiation therapy back in 2018. Patient does have obstructive urinary symptoms and a weak flow at baseline. Of note he also has history of urethral stricture required dilation back in September 2023. He has been having difficulty voiding in the hospital, his postvoid residual is elevated at [address] a Garcia catheter by the nursing staff was unsuccessful. Urologist was consulted for catheter placement Review of Systems - Constitutional Denies fever, Denies weight loss - EENT Ears, nose, mouth and throat: Denies dysphagia - Cardiovascular Denies chest pain, Denies shortness of breath - Respiratory Denies cough, Denies 7 - Genitourinary Reports urinary retention - Integumentary Denies rash, Denies unusual bruising - Neurological Denies headaches, Denies syncope Past Medical History Past Medical History: Atrial Fibrillation, Coronary Artery Disease (CAD), Cancer, Eye Disorder, GI Bleed, Hyperlipidemia, Hypertension, Pneumonia, Skin Disorder, Sleep Apnea/CPAP/BIPAP, Vascular Disorder Additional Past Medical History / Comment(s): dx of lung CA Aug 2023, pneumonia Sep 2023, recent dx hemoptysis-post bronchoscopy- Sep 2023, pt states he is still coughing up blood but "It's a lot less.", back pain-increased pain with walking,Vertigo, hiatal hernia, gout, eczema, bleeds easily, uses cpap, history of prostate cancer, cataract lt eye, "I have circulation issues with my legs." "My founder and chief executive officer said we were going to deal with my lungs first before worrying about my legs.", pt reports swelling to bilat legs due to "I injured them falling off a ladder and my legs got stuck in ladder." cancer recent radiation treatment active chemo pills. History of Any Multi-Drug Resistant Organisms: None Reported Past Surgical History: Cholecystectomy, Heart Catheterization With Stent, Orthopedic Surgery, Prostate Surgery Additional Past Surgical History / Comment(s): Recent Bronchoscopy Aug 2023, Exploratory Abdominal Surgery; ORIF titanium/screws in LT Ankle. REPAIR BICEP TENDON LT ARM. RT CATARACT. STENTS X2. cyst removed from under chin, prostate surgery with 44 radiation txs, Watchman procedure, R lung lower lobectomy 09/28 Past Anesthesia/Blood Transfusion Reactions: Previous Problems w/ Anesthesia Additional Past Anesthesia/Blood Transfusion Reaction / Comm: DEVELOPED AFIB AFTER CATARACT SURG 2013. No hx of blood transfusions. Date of Last Stent Placement:: 2013 Past Psychological History: No Psychological Hx Reported Smoking Status: Former smoker Past Alcohol Use History: None Reported Past Drug Use History: None Reported - Past Family History Mother Family Medical History: Coronary Artery Disease (CAD), Myocardial Infarction ([place]) Additional Family Medical History / Comment(s): from myocardial infarction at 69 years old Father Family Medical History: Coronary Artery Disease (CAD), Myocardial Infarction ([place]) Additional Family Medical History / Comment(s): from myocardial infarction at 69 years old Medications and Allergies Home Medications Medication Instructions Recorded Confirmed Type Ranolazine [Ranexa] 500 mg PO BID 09/03/17 12/14/24 History Montelukast [Singulair] 10 mg PO HS 90 Days #90 tab 02/18/24 12/14/24 Rx Apixaban [Eliquis] 5 mg PO BID 03/03/24 12/14/24 History Capmatinib Hydrochloride [Tabrecta] 200 mg PO BID 08/23/24 12/14/24 History Clopidogrel [Plavix] 75 mg PO DAILY 08/23/24 12/14/24 History Colchicine 0.6 mg PO DAILY 08/23/24 12/14/24 History Furosemide [Lasix] 40 mg PO BID@0900,1400 08/23/24 12/14/24 History Midodrine [ProAmatine] 5 mg PO TID 08/23/24 12/14/24 History Sildenafil [Revatio] 20 mg PO DAILY 08/23/24 12/14/24 History allopurinoL [Zyloprim] 300 mg PO DAILY 08/23/24 12/14/24 History Budesonide [Pulmicort] 0.5 mg INHALATION RT-BID 12/14/24 12/14/24 History Cephalexin [Keflex] 500 mg PO BID 12/14/24 12/14/24 History Ipratropium-Albuterol Nebulize 3 ml INHALATION RT-TID 12/14/24 12/14/24 History [Duoneb 0.5 mg-3 mg/3 ml Soln] Metoprolol Tartrate [Lopressor] 50 mg PO BID 12/14/24 12/14/24 History Omeprazole 40 mg PO HS 12/14/24 12/14/24 History ondansetron HCL [Zofran] 8 mg PO Q6H PRN 12/14/24 12/14/24 History Acetaminophen Tab [Tylenol] 650 mg PO Q6HR PRN tab 12/16/24 Rx HYDROcodone/APAP 5-325MG [[place] 1 each PO Q4HR PRN tab 12/16/24 Rx 5-325] Lactulose [Cephulac] 20 gm PO TID PRN 90 Days #90 ml 12/16/24 Rx Mag Hydrox/Al Hydrox/Simeth 15 ml PO Q6HR PRN ml 12/16/24 Rx [Maalox] Potassium Chloride ER [K-Dur 20] 40 meq PO DAILY 90 Days #90 tab 12/16/24 Rx Allergies Allergy/AdvReac Type Severity Reaction Status Date / Time capecitabine Allergy Rash/Hives Verified 12/14/24 08:34 cortisone [Cortisone] Allergy Swelling Verified 12/14/24 08:34 and itching surgical tape Allergy "Broke Uncoded 12/14/24 08:34 out" "Got infection" Surgical - Exam Vital Signs Temp Pulse Resp BP Pulse Ox 97.9 F 70 20 114/60 98 12/14/24 04:11 12/14/24 04:11 12/14/24 04:11 12/14/24 04:11 12/14/24 04:11 - General no distress, no pain - Eyes normal ocular movement, no pale - ENT normal nares, normal mucosa, decreased hearing - Respiratory normal expansion, normal respiratory effort - Abdomen Abdomen: soft, tender (Along the suprapubic region), distended - Genitourinary normal penis with no external lesions, testicles present, testicles non-tender - Psychiatric oriented to time, oriented to person, oriented to place Results - Labs 12/16/24 07:11 12/16/24 07:11 Assessment and Plan Assessment: 84-year-old male with history of 800 mL urinary retention. History of prostate cancer treated with radiation therapy. Previous history of urethral stricture requiring dilation back in September 2023. I was able to place a 16 Macedonian coud catheter. - Recommend keeping the catheter in place for 1 week, at that point he can have a trial of void. -Will start Flomax
--- NOTE | 2024-12-18 12:06 | P.PCN ---
Date of Procedure: 12/18/24 Preoperative Diagnosis: Urinary retention Postoperative Diagnosis: Same Procedure(s) Performed: Garcia catheter placement Description of Procedure: Patient penis prepped was prepped with Betadine, lidocaine gel was injected per urethra. Next a 16 Uzbek coud catheter was advanced into the bladder, there was mild resistance at the bulbar urethra but I was able to navigate the catheter into the bladder with a return of clear urine. Patient tolerated the procedure well
--- NOTE | 2024-12-18 12:13 | P.PN ---
Progress Note - Text Progress Note Date: 12/18/24 The patient is seen and examined. He says the pain at his back is improving. His using his brace and has excepted he will be using it. He is reasonably comfortable with that. He denies any changes in his neurologic status of his upper or lower extremities. He was having some trouble voiding and having bowel movement but he says he has been successful with these now. He is afebrile stable vital signs his back is much less tender to palpation throughout his thoracic spine. There is no point tenderness today. His upper extremities have good active and passive range of motion without neurologic deficit X-rays of his thoracic spine with the brace on and show well-maintained overall alignment without any obvious instability or shifting or malalignment Assessment and plan T5 fracture Status post fall, acute Ankylosing spondylitis Thoracic back pain The patient seems to be overall stable with his fracture. There is no evidence of any shift in the alignment with the cervical thoracic brace intact. It is okay for him to ambulate with the brace intact. He should use essenti ally at all times. He may remove it for bathing. From a orthopedic spine standpoint is okay for the patient to discharge when he is medically stable. I should plan to see him back in the next 2 to 3 weeks for recheck evaluation and repeat x-rays. He will likely need bracing for 8 to 12 weeks. If he is having changes with his spine we can address them on outpatient basis and consider further intervention if necessary
[2024-12-18 13:09] VITALS: PULSE 62; RESP 17; TEMP 97.8
--- NOTE | 2024-12-18 13:42 | P.PN ---
Subjective Progress Note Date: 12/18/24 Patient is a 84-year-old male, , who lives with his son and DIL in a home with 3 LUIGI with HR. Prior to admission, patient was using a rollator for mobility and assisted with ADLs as need. Had home care 1 day per week and son/DIL helped as needed. is currently a resident at [facility]. Den presented to [facility] on 12/14/24 for further evaluation of his thoracic spine after a fall due to hypoglycemia. He fell hitting his thoracic spine and has had increased upper thoracic pain since that time. He also reported a right great toe injury with a wound, which was treated in the emergency department per records. Patient has history of chronic swelling of his bilateral lower extremities (greater on the left than the right), lung cancer with right partial lobectomy, oxygen dependent at 5L NC, atrial fibrillation, coronary artery disease, hyperlipidemia, hypertension and a vascular disorder. Imaging revealed evidence of acute fracture at the anterior osteophyte at T4-5 extending into the T5 vertebral body; ankylosing spondylosis of the thoracic spine. He was evaluated by othopedics who recommended conservative treatment at this time. A cervicothoracic orthosis brace was recommended while sitting upright at greater than 45, during increase activities, during ambulation. Brace does not have to or while lying in bed or while bathing. F/U recommended in 2 weeks. Therapy evaluations reviewed: OT - evaluation pending, PT - 40 feet Mila 2WW, BM Mila. 12/17: Patient seen and examined resting in bed. Reports he chronically wears 5L NC at home. Reports pain with movement, relieved with rest and use of pain medications. LBM prior to arrival, +flatus, denies abdominal pain N/V. Denies CP and SOB. Reports he only wants to go to [facility] for therapy to be closer to his , and if he cannot go there, would like to go home with [facility]. 12/18: Patient's oral chemo medication is limiting him from being accepted to [facility], he would like to consider [facility]. He would be able to bring his oral chemo medications there and continue on them. He will need insurance authorization. Patient states he is doing okay, does have some right thorax pain which is from a prior fall. He denies chest pain, is on 5 L of oxygen, denies any increased work of breathing from baseline. He had a small bowel movement today. He reports a history of chronic constipation due to his medications. He has a Garcia catheter for urination. He reports that he would like to come to inpatient rehab. Reviewed orthospine notes, patient is to wear the brace for 8 to 12 weeks. Therapy progress: Patient was evaluated by Occupational Therapy mod assist with bathing and dressing upper body, max assist for lower body dressing, min assist for grooming Objective - Vital Signs Vital signs: Vital Signs Temp 97.3 F L 12/18/24 10:16 Pulse 68 12/18/24 10:16 Resp 18 12/18/24 10:16 BP 125/68 12/18/24 10:16 Pulse Ox 98 12/18/24 08:08 FiO2 Intake & Output 12/17/24 12/18/24 12/18/24 18:59 06:59 18:59 Intake Total 1080 1180 Output Total 700 300 650 Balance 380 880 -650 Intake: Oral 1080 1180 Output: Urine 700 300 650 Other: Voiding Method External Catheter External Catheter - Exam General: WDWN elderly male, sitting up in chair, alert, NAD HEENT: head normocephalic, atraumatic; +VIEJAS, B/L hearing aids CV: no acute distress, +B/L LE edema 1-2+ pitting Lungs: non-labored respirations, on 5L O2 (chronic) Abdomen: soft, NT, ND, Catheter tubing-urine Neuro: Alert and oriented x4. Follow 3 step commands. MMT: B/L UE 5/5; B/L HF 4/5, KE 4+/5 MSK: CT brace on Sensation intact to light touch bilateral UE and LEs Psych: mood calm, affect appropriate Extremities: calves supple, non tender,+ LE edema Skin: intact where exposed, hyperpigmentation to lower extremities - Labs CBC & Chem 7: 12/16/24 07:11 12/18/24 11:24 Assessment and Plan Assessment: #Impaired gait and ADLs 2' Acute traumatic T5 fracture within the vertebral body status post fall -cervical thoracic orthosis (ASSISTANT CONSTRUCTION SUPERINTENDENT) brace whenever he is elevated or out of bed recommended per orthopedics. -conservative management recommended with F/U with Stef Avery PA-C or Dr. Rene Buitrago at [facility] in 2 weeks per ortho note -likely 8-12 weeks of bracing, can remove for showering. #Acute thoracic back pain 2' above #Thoracic ankylosing spondylosis #Hx Atrial fibrillation #Hyponatremia -12/17: sodium 125 yesterday - management per primary team #Hypokalemia -12/17: potasium 3.0 yesterday - management per primary team #Hx Pulmonary Carcinoma s/p right partial lobectomy -Chronic oxygen dependent 5L NC -Tabrecta per NOV - oral chemo/chemo precautions #DVT prophylaxis -defer to IM/surgical management #Bowel/bladder: nursing to monitor and reports any concerns. -12/17: reports LBM prior to arrival, +flatus, denies abdominal pain, N/V. -12/18: Patient had small BM today #Skin/wound: nursing to monitor and reports any concerns/wound care to follow as needed. #Pain management -per NOV #Comorbidities: Coronary artery disease, hyperlipidemia, Hypertension, Vascular disorder #Your medical diagnosis and management. Recommendations: Therapy options discussed with patient, [facility] is not able to accommodate him on his oral chemotherapy, he would like to come to [facility] at [facility]. His insurance requires authorization. Patient is performing below his baseline level of function, he is motivated and willing to participate with therapy. He has good social support and requires the close supervision of rehab team, nursing, therapies, IM. Patient seen and examined in collaboration with Dr Wing.
[2024-12-18 14:16] VITALS: BP 115/67
[2024-12-19] MEDS ORDERED: TAMSULOSIN 0.4 MG CAP.ER.24H PO SCH (09:00)
--- NOTE | 2024-12-23 07:54 | HP ---
HISTORY AND PHYSICAL HISTORY OF PRESENT ILLNESS: 84-year-old white male came in suffering a fall at home, unsteady, fallen a couple of times in the past 3 or 4 days thoracic spine. He does not think he struck his head. No neck pain. No chest pain, abdominal, or extremity pain. He has severe pain in mid back, which showed to be a thoracic fracture on CAT scan. MEDICATIONS: 1. Ranexa 500 b.i.d. 2. Eliquis 5 b.i.d. 3. 200 mg b.i.d. 4. Omnicef 300 daily. 5. Plavix 75 mg daily. 6. Colchicine 0.6 mg daily. 7. Lasix 40 mg t.i.d. 8. 25 b.i.d. 9. 5 mg t.i.d. 10.Potassium chloride 10 mEq b.i.d. 11.Revatio 20 mg daily. 12.Aldactone 25 daily. 13.Zyloprim 300 daily. ALLERGIES: Please see list. PAST MEDICAL HISTORY: AFib, coronary artery disease, disorder, hypertension, dyslipidemia, pneumonia, skin disorder, sleep apnea, in 2022. PAST SURGICAL HISTORY: Cholecystectomy, heart catheterization with stent, orthopedic surgery, prostate surgery, recent bronchoscopy, . PHYSICAL EXAMINATION: VITAL SIGNS: Temperature 97.9, pulse 67, respiratory rate 18 to 20, blood pressure 140 to 136/60 to 66, O2 98 to 100. HEENT: Normocephalic, atraumatic. CARDIOVASCULAR: S1, S2. LUNGS: Transmitted breath sounds. EXTREMITIES: No cyanosis or clubbing, 2+ edema. MUSCULOSKELETAL: Severe tenderness to palpation over the mid thoracic spine. ENT: Hearing loss bilaterally. VASCULAR: Normal dorsalis pedis, posterior tibial, and radial pulses. fractures. Orthopedic and Neurosurgery to see the patient. Prognosis is guarded. MMODL / IJN: [id number] /
--- NOTE | 2024-12-23 10:54 | DS ---
DISCHARGE SUMMARY He is sent to rehab over at [facility] for acute T8 thoracic fracture for physical therapy as he is having trouble getting out of bed and pain control. MEDICATIONS: Home medicines were continued. 1. Ranexa 500 b.i.d. 2. Singulair 10 daily. 3. Eliquis 5 b.i.d. 4. Lasix 40 b.i.d. 5. Revatio 20 mg daily. 6. Colchicine 0.6 mg daily. 7. Plavix 75 mg daily. 8. 200 b.i.d. 9. Zyloprim 300 daily. 10.ProAmatine 5 t.i.d. 11.Keflex 500 b.i.d. 12.Metoprolol tartrate 50 b.i.d. 13.Omeprazole 40 daily. 14. . 15.Pulmicort 0.5 b.i.d. 16.Zofran 8 mg q.6 p.r.n. 17.Lactulose 20 g t.i.d. 18.K-Dur 40 mEq daily. 19.Maalox daily. 20.Arcola 5/325 every 4 hours p.r.n. 21.Tylenol p.r.n. 22.Flomax 0.4 daily. CONDITION: Stable. PROGNOSIS: Guarded. Please see further orders. MMODL / IJN: [id number] /
== END 2024-12-18 17:59 | DRG 551 ==
LOC: EC 04:08 → 5NMEDONC 08:24 → OBSVTOIN 08:25 → 5NMEDONC 08:58
PROVIDERS: ADMIT Family Medicine; ATTEND Family Medicine
PROC: 0T9B70Z Drainage of Bladder with Drainage Device, Via Natural or Artificial Opening (ICD-10-PCS; principal; 2024-12-18)
DX: S22.059A Unspecified fracture of T5-T6 vertebra, initial encounter for closed fracture (principal); J18.9 Pneumonia, unspecified organism; E87.1 Hypo-osmolality and hyponatremia; C34.90 Malignant neoplasm of unspecified part of unspecified bronchus or lung; I11.0 Hypertensive heart disease with heart failure; I50.9 Heart failure, unspecified; M45.4 Ankylosing spondylitis of thoracic region; I48.91 Unspecified atrial fibrillation; E16.2 Hypoglycemia, unspecified; I25.10 Atherosclerotic heart disease of native coronary artery without angina pectoris; E78.5 Hyperlipidemia, unspecified; M25.78 Osteophyte, vertebrae; E87.6 Hypokalemia; R33.9 Retention of urine, unspecified; W18.30XA Fall on same level, unspecified, initial encounter; Z85.46 Personal history of malignant neoplasm of prostate; Z88.8 Allergy status to other drugs, medicaments and biological substances; Z79.01 Long term (current) use of anticoagulants; Z91.048 Other nonmedicinal substance allergy status; Z79.899 Other long term (current) drug therapy; Z87.891 Personal history of nicotine dependence; Z99.81 Dependence on supplemental oxygen; Z92.3 Personal history of irradiation
CPT/HCPCS: 70450; 71250; 72072; 72125; 72128; 72146; 80053; 81003; 84132; 84145; 85025; 94640; 94760; 96374; 99285

== ENCOUNTER → 2025-02-21 | Outpatient (CLI) | payer MEDICARE ==
--- NOTE | 2025-02-21 15:41 | US ---
EXAMINATION TYPE: US venous doppler duplex UE RT DATE OF EXAM: 02/21/2025 COMPARISON: NONE CLINICAL INDICATION: Male, 84 years old with history of I82.621 ACUTE EMBOLISM AND THROMBOSIS OF DEEP VEIN; Swelling and redness in right forearm TECHNIQUE: Grayscale, color Doppler and spectral Doppler imaging of the upper extremity. SIDE PERFORMED: Right VESSELS IMAGED: IJV Subclavian Vein Axilla Vein Brachial Vein(s) Radial Paired Veins Ulnar Paired Veins Cephalic Vein* Basilic Vein* (*superficial vessels) FINDINGS: Right Arm: No evidence for DVT. Edema noted in forearm Grayscale, color doppler, spectral doppler imaging performed of the deep veins of the upper extremiti es. IMPRESSION: No evidence for DVT. [facility], , 02/21/2025 3:38 PM
== END | disposition home or self-care (01) ==
LOC: RADUSWWP 15:05
PROVIDERS: ATTEND Family Medicine
DX: I82.621 Acute embolism and thrombosis of deep veins of right upper extremity (principal)

== ENCOUNTER → 2025-03-11 | Outpatient (CLI) | payer MEDICARE ==
--- NOTE | 2025-03-11 09:53 | MR ---
EXAMINATION TYPE: MR lumbar spine wo con DATE OF EXAM: 03/11/2025 9:33 AM COMPARISON: CT and plain film.. CLINICAL INDICATION: Male, 84 years old with history of M54.16; PHH, Lumbar neuritis, hx lung cancer. TECHNIQUE: Multi planar, multi sequence imaging was performed utilizing: T1-weighted, T2-weighted, a nd turbo inversion recovery imaging of the lumbar spine. IV Contrast: mL (None, if empty) FINDINGS: Alignment: The lumbar vertebral bodies have preserved heights with grade 1 anterolisthesis of L4 on L 5. Cord: The conus medullaris and the distal spinal cord appear unremarkable with regards to their signa l intensity and morphology. Bones/Discs: Mild degeneration changes throughout the spine with osteophyte formation and facet joint arthropathy. Intervertebral disc signal is maintained. No abnormal inversion recovery signal to sugg est bony edema. T12-L1: No evidence of significant spinal canal stenosis or neural foraminal stenosis. L1-L2: No evidence of significant spinal canal stenosis or neural foraminal stenosis. L2-L3: Disc bulge and facet joint arthropathy result in mild spinal canal and mild to moderate bilate ral neural foraminal stenosis. L3-L4: Disc bulge and facet joint arthropathy result in mild spinal canal and moderate bilateral neur al foraminal stenosis. Small bilateral facet joint effusions present. L4-L5: Disc uncovering from grade 1 anterolisthesis and facet joint arthropathy with mild spinal carlos l stenosis and moderate to severe bilateral neural foraminal stenosis. Small bilateral facet joint e ffusions present. L5-S1: The disc has a rounded posterior morphology without significant spinal canal stenosis. Facet j oint arthropathy with mild bilateral neural foraminal stenosis. No significant spinal canal or neural foraminal stenosis in the remainder of the visualized levels. Other findings: None. IMPRESSION: 1. No definitive evidence of disc herniation or significant spinal canal stenosis. 2. Mild disc degeneration with associated osteoarthritic changes. 3. Grade 1 anterolisthesis of L4 and L5. This results in moderate to severe bilateral neural foramin al stenosis. [facility], , 03/11/2025 9:51 AM
== END | disposition home or self-care (01) ==
LOC: RADMRIMAIN 07:45
PROVIDERS: ATTEND Family Medicine
DX: M48.061 Spinal stenosis, lumbar region without neurogenic claudication (principal); M43.16 Spondylolisthesis, lumbar region; M51.16 Intervertebral disc disorders with radiculopathy, lumbar region; M47.26 Other spondylosis with radiculopathy, lumbar region; M31.6 Other giant cell arteritis
CPT/HCPCS: 72148

== ENCOUNTER → 2025-03-15 | Day surgery (SDC) | payer MEDICARE ==
--- NOTE | 2025-03-14 19:39 | HP ---
HISTORY AND PHYSICAL CHIEF COMPLAINT: Fluid in the left ear. HISTORY OF PRESENT ILLNESS: This patient is an 84-year-old male, who was recently seen in my office complaining of having decreased hearing mainly in his left ear. He states that when he talks he sounds as if he has his head stuck in a bucket. He apparently fell several months ago and was hospitalized. There was no bleeding and a CT scan of the head was done and it was unremarkable. He is known to have bilateral central neural hearing loss. At the time, that he was seen in my office clinical examination of the ears revealed that there was fluid present in the left middle ear space. 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 It was recommended that he undergo a left myringotomy with insertion of ventilation tubes under IV sedation with MAC. PAST MEDICAL HISTORY: Reveals he has no known allergies to medications. CURRENT MEDICATIONS: Include; 1. Linzess. 2. Metoprolol. 3. Singulair. 4. Mounjaro. 5. Spironolactone. 6. Tabrecta. 7. Zyrtec. 8. Isosorbide. REVIEW OF SYSTEMS: Reveals; CARDIOVASCULAR SYSTEM: Positive for hypertension and ASHD. RESPIRATORY SYSTEM: Positive for COPD and emphysema. GASTROINTESTINAL: Negative. MUSCULOSKELETAL SYSTEM: Positive for osteoarthritis. The remainder of the review of systems is unremarkable. PAST SURGICAL HISTORY: Previous Surgeries: Include exploratory laparotomy, removal of a cyst under the patient's chin, lung surgery for carcinoma, bilateral cataract surgery, and placement of heart stents. PHYSICAL EXAMINATION: GENERAL: This patient is an 84-year-old male, who was alert and cooperative. HEENT: The patient is normocephalic. Examination of the right ear is unremarkable. Examination of left ear reveals that the left tympanic membrane is dull with fluid in the left middle ear space. Pupils equal, round, reactive to light and accommodation. Extraocular movements within normal limits. Intranasal examination reveals moderate-to- severe septal deviation with compensatory hypertrophy of the inferior turbinates and a moderate amount of mucus on the mucous membranes draining down the posterior pharynx. Remainder of the head and neck exam is essentially unremarkable. CHEST/CARDIOVASCULAR: Both lung smallwood are clear to percussion and auscultation. The patient is in regular sinus rhythm. S1 and S2 are present without evidence of any murmurs S3s or S4s. Peripheral pulses are bilaterally symmetrical. ABDOMEN: There is no evidence any masses, megaly, or tenderness. The abdomen is soft SKIN: Unremarkable. MUSCULOSKELETAL AND NEUROLOGICAL: Within normal limits. RECTAL. This should be printed directly. Exam is deferred at this time because the patient has this done on a regular basis at his family physician's office the remainder of physical exam is essentially unremarkable. IMPRESSION: Chronic left serous otitis media. PLAN: The patient is scheduled undergo a left myringotomy with insertion of ventilation tube under IV sedation with MAC. Attention, RNs in the pre-surgical area: I have not ordered any pre-surgical prophylactic antibiotics for this patient. If the pharmacy department sends any pre- surgical prophylactic antibiotic to the pre-surgical area for this patient, that order should be cancelled, and the medication should be returned to the pharmacy department. Also please make sure that the patient's account is credited appropriately. I have discussed the risks, benefits and alternative therapies for the above-mentioned procedure and for both sedation/analgesia as well as necessary blood product administration, if indicated, as they pertain to this patient. The patient has indicated his understanding and acceptance of the risks and procedures discussed. MMODL / IJN: [id number] /
--- NOTE | 2025-03-14 20:05 | HP ---
HISTORY AND PHYSICAL PREOPERATIVE HISTORY AND PHYSICAL CHIEF COMPLAINT: Fluid in the left ear. HISTORY OF PRESENT ILLNESS: This patient is an 84-year-old male who was recently seen in my office complaining of having a block sensation in his left ear. He states that when he talks, it sounds as if he has his head stuck in a bucket. At the time that he was seen in my office, clinical examination revealed chronic left serous otitis media, so called glue ear. It was recommended that the patient undergo a left myringotomy with insertion of a ventilation tube under IV sedation with MAC. PAST MEDICAL HISTORY: Reveals that he has no known allergies to medications. CURRENT MEDICATIONS: Include; 1. Linzess. 2. Metoprolol. 3. Singulair. 4. Mounjaro. 5. Spironolactone. 6. Tabrecta. 7. Zyrtec. 8. Isosorbide. REVIEW OF SYSTEMS: CARDIOVASCULAR: Positive for hypertension and ASHD. RESPIRATORY: Positive for COPD and emphysema. METABOLIC/ENDOCRINE: Negative. MUSCULOSKELETAL: Positive for osteoarthritis. The remainder of the review of systems is essentially unremarkable. PHYSICAL EXAMINATION: GENERAL: This patient is a pleasant 84-year-old male who is alert and cooperative. HEENT: The patient is normocephalic. Right tympanic membrane is unremarkable. Left tympanic membrane reveals evidence of fluid in the left middle ear space. Pupils equal, round, reactive to light and accommodation. Extraocular movements within normal limits. Intranasal examination reveals severe septal deviation with compensatory hypertrophy of the inferior turbinates. Examination of the oropharynx and the remainder of the head and neck exam all within normal limits. CHEST/CARDIOVASCULAR: Both lung smallwood are clear to percussion and auscultation. The patient is in regular sinus rhythm. S1, S2 are present without evidence of any murmurs, S3s or S4. ABDOMEN: There is no evidence any masses, megaly or tenderness. The abdomen is soft. SKIN: Unremarkable. MUSCULOSKELETAL AND NEUROLOGICAL: Within normal limits. RECTAL: Deferred at this time because the patient has it done on a regular basis at his family physician's office. The remainder of physical exam is unremarkable. The patient's previous surgeries include exploratory laparoscopy, removal of a benign cyst below his chin, partial lung resection for carcinoma, bilateral cataract surgery, and insertion of heart stents. IMPRESSION: Chronic left serous otitis media. PLAN: The patient is scheduled undergo a left myringotomy with insertion of ventilation tube on IV sedation with MAC. Attention, RNs in the pre-surgical area, I have not ordered any pre-surgical prophylactic antibiotics for this patient. If the pharmacy department sends any pre- surgical prophylactic antibiotics to the pre-surgical area for this patient, please cancel that order and return the medications to the pharmacy department. Also, please make sure that the patient's account is credited appropriately. I have discussed the risks, benefits and alternative therapies for the above-mentioned procedure and for both sedation/analgesia as well as necessary blood product administration, if indicated, as they pertain to this patient. The patient has indicated his understanding and acceptance of the risks and procedures discussed. MMODL / IJN: [id number] /
[~2025-03-15] MED LIST changes: -LACTATED RINGERS 1,000 ML IV SCH; -LIDOCAINE 1% 20 ML VIAL (10MG/ML) FOR IV START INTRADERMA PRN; +LIDOCAINE 1% INJ 10MG/ML (20 ML MDV) ONE; +PROPOFOL 10 MG/ML 20 ML VIAL IV ONE; +Pre Op ABX Message 1 EACH MISC MISCELLANE ONE
[2025-03-15] MEDS: IV FLUID CONTINUATION 1,000 ML IV ONE ×2 (10:11→11:50)
[2025-03-15 10:13] VITALS: RESP 16; TEMP 97.8
[2025-03-15] MEDS: LACTATED RINGERS 1,000 ML IV SCH (10:17)
[2025-03-15] MEDS: OFLOXACIN 0.3% OPHTH DROPS 5 ML BOTTLE LEFT EAR ONE (11:30)
[2025-03-15 12:26] VITALS: BP 105/64; PULSE 57
--- NOTE | 2025-03-18 23:45 | OP ---
OPERATIVE REPORT DATE OF SERVICE : PREOPERATIVE DIAGNOSIS: Chronic left serous otitis media. POSTOPERATIVE DIAGNOSIS: Chronic left serous otitis media. ANESTHESIA: IV sedation with MAC. OPERATION: Left myringotomy with insertion of ventilation tube. COMPLICATIONS: None. NARRATIVE: This patient was placed on the operating table in supine position. After uneventful IV sedation, satisfactory sedation was obtained. Next, the patient's left ear was draped in usual customary fashion. Next, using the Zeiss operating microscope and a #4 aural speculum, the left external auditory canal was cleansed of all wax and debris. Next, an incision was made in the anterior-inferior quadrant of the left tympanic membrane. The middle ear space was suctioned free of all fluid and a Imke - Bobbin ventilation tube was inserted through the previously made myringotomy incision without difficulty. At this point, the procedure was terminated. There were no intraoperative complications. The patient tolerated the procedure well and was returned to the recovery room in satisfactory condition. MMODL / IJN: [id number] /
== END | disposition home or self-care (01) ==
LOC: OR 09:19
PROVIDERS: ATTEND Otolaryngology
DX: H65.22 Chronic serous otitis media, left ear (principal); Z95.5 Presence of coronary angioplasty implant and graft; I10 Essential (primary) hypertension; I25.10 Atherosclerotic heart disease of native coronary artery without angina pectoris; J44.9 Chronic obstructive pulmonary disease, unspecified; Z79.85 Long-term (current) use of injectable non-insulin antidiabetic drugs; Z79.899 Other long term (current) drug therapy
CPT/HCPCS: 69436; J2003; J2704

== ENCOUNTER → 2025-03-22 | Outpatient (CLI) | payer MEDICARE ==
--- NOTE | 2025-03-24 10:47 | PE ---
EXAMINATION TYPE: PET CT fusion skull to thigh DATE OF EXAM: 03/22/2025 CLINICAL INDICATION:Male, 84 years old with history of R91.1 SPN; TECHNIQUE: Following the intravenous administration of 12.9 mCi of F-18 FDG, whole body images are performed from the skull base to the Mid thigh. Images are reviewed on the computer in the coronal, axial, and sagittal planes. Reconstructed rotating images are created on independent workstation and reviewed on the computer. A non-contrast CT is performed in conjunction with the PET scan. Glucose level 120 mg/dL CT DLP: 1294 mGycm, Automated exposure control for dose reduction was used. COMPARISON: CT 12/14/2024, PET/CT 06/07/2024, MRI: None FINDINGS: Mediastinal SUV mean is 2.9. Hepatic parenchyma SUV mean is 3.5. SKULL BASE AND NECK: * Left public policy analyst space/sinus destructive mass has decreased and now is just primarily in the bone m ax SUV 3.3, previously 4.6, 4.9, 27.3, 22.0. * Right scalene muscle focal uptake max SUV 2.8, previously 4.0. Not seen on prior possibly related to muscle strain and/or artifact. * Right posterior larynx max SUV 5.9 previously 2.9. CHEST, MEDIASTINUM, AND HILAR REGION: * Postsurgical changes to the right lower lobe. Mild uptake in the pleura right lateral aspect of th e lung base max SUV 3.2, previously 4.3, 5.2. * Right lower lobe peripheral lateral nodule remains nonvisualized. No uptake within the right shoulder girdle. ABDOMEN AND PELVIS: * LEFT hepatic lobe remains not visualized, * Lymph node anterior to the left hepatic lobe remains not visualized * Small focus of uptake near the diaphragm on the left remains not visualized.. MUSCULOSKELETAL STRUCTURES: Scattered abnormal FDG activity within the osseous structures. Examples include: * Posterior right rib 3 max SUV 3.2, previously 3.1, 5.1, 11.7 . * Anterior to the right rib 2 in the intercostal space Max SUV 2.1, previously 3.7. Unclear if there is respiratory motion mismatched * Right scapula 15.6, previously 2.4, 3.1, 17.3. * Right anterior rib 2 max SUV 3.9, previously 2.9, 3.1, 23.4. * Right rib 6 fracture max SUV 3.8, previously 3.5, 4.5 17.7. * Left iliac bone max SUV 2.9, previously 1.6, 2.4, 17.0 * Posterior elements of T10 on the right max SUV 4.2, previously 2.9, previously 5.8, 21.1 * Sternum max SUV 2.5, previously 2.2, 2.6, 18.5. OTHER CT: Small left pleural effusion. Right aphakia. Atherosclerosis of the vasculature including th e carotid bifurcations the intracranial arteries and coronary arteries along with others. The bladder is distended. Prostatomegaly. Bilateral fat-containing inguinal hernias. The gallbladder surgically absent. Heart is enlarged for size. Atrial appendage occlusion device present. Mild gynecomastia carey ges bilaterally. IMPRESSION: Interval significant increase in right scapula as seen on original PET/CT 07/09/2024. Findings suggest recurrence at this site. Consider right shoulder MRI with IV contrast for further evaluation. The re mainder of the lesions appears stable minimally increased compared to prior. [facility], , 03/24/2025 10:44 AM
== END | disposition home or self-care (01) ==
LOC: RADPETMAIN 14:24
PROVIDERS: ATTEND Family Medicine
DX: R91.1 Solitary pulmonary nodule (principal)
CPT/HCPCS: 78815; A9552